=== PATIENT | male | born 1930 | race Caucasian/White ===

== ENCOUNTER → 2018-10-28 05:31 | Day surgery (SDC) | payer MEDICARE, BC ==
[~2018-10-28 05:31] MED LIST: Acetaminophen TAB* 325 MG PO PRN; Buffered Lidocaine 0.9% SYRIN* 5 ML/SYR SYRINGE INTRADERM ONE; Bupivacaine 0.25% SDV PF* 10 ML VIAL INJ ONE; Dexamethasone TAB* 4 MG ONE; Dexamethasone TAB* 4 MG PO ONE; Famotidine IV* 10 MG/ML 2 ML (20 mg) IV ONE; Famotidine IV* 10 MG/ML 2 ML (20 mg) ONE; Midazolam* 1 MG/ML 2 ML VIAL (2 MG) ONE; Morphine VIAL* 10 MG/ML 1 ML VIAL ONE; Naloxone* 0.4 MG/ML 1 ML VIAL IV PRN; Ondansetron ODT TAB* 4 MG ONE; Ondansetron TAB* 4 MG PO ONE; ceFAZolin 2 GM PREMIX in ORs 2 GM/50 ML BAG IVPB ONE; fentaNYL* 50 MCG/ML 2 ML VIAL (100 MCG VIAL) ONE
[2018-10-28 08:54] VITALS: BP 123/63
== END | disposition home or self-care (01) ==
LOC: OR 05:31
PROVIDERS: ATTEND Plastic Surgery
DX: G56.02 Carpal tunnel syndrome, left upper limb (principal); I10 Essential (primary) hypertension; Z85.828 Personal history of other malignant neoplasm of skin
CPT/HCPCS: A9270-GY; J0690; J2250; J2270; J3010; J3490; J8540

== ENCOUNTER 2019-07-09 16:10 | Emergency (ER) | payer MEDICARE, BC ==
[2019-07-09] MEDS ORDERED: diPHENhydraMINE PO* 50 MG PO ONE (16:46)
[2019-07-09] MEDS ORDERED: predniSONE TAB* 20 MG PO ONE (16:46)
--- NOTE | 2019-07-09 17:14 | ED ---
Skin Complaint - HPI Summary HPI Summary: Patient is an 89-year-old male who presents emergency department for evaluation of the sting to his left arm. Patient states the sting occurred about 4+ hours ago. Patient states area has aggressively become red and itchy. Patient states had similar reactions in the past. He denies history of anaphylactic reactions and has never used an EpiPen. Patient denies chest pain, shortness of breath, facial mild swelling. Symptoms are mild in severity. No current modifying factors. - History of Current Complaint Chief Complaint: EDAnimalBite Time Seen by Provider: 07/09/19 16:26 Stated Complaint: BEE STING PER PT Hx Obtained From: Patient Pain Intensity: 0 - Additional Pertinent History Primary Care Physician: CLARI - Allergy/Home Medications Allergies/Adverse Reactions: Allergies Allergy/AdvReac Type Severity Reaction Status Date / Time bee venom protein (honey bee) Allergy Rash And Verified 07/09/19 16:45 Itching procaine Allergy Hives Verified 07/09/19 16:45 tramadol AdvReac Intermediate Blurred Verified 07/09/19 16:45 Vision PMH/Surg Hx/FS Hx/Imm Hx Previously Healthy: Yes Endocrine/Hematology History: Denies: Hx Diabetes Cardiovascular History: Reports: Hx Hypertension - ON MEDICATION FOR Denies: Hx Pacemaker/ICD, Other Cardiovascular Problems/Disorders Respiratory History: Denies: Hx Asthma, Other Respiratory Problems/Disorders GI History: Reports: Hx Gastroesophageal Reflux Disease - ON MEDICATION FOR Denies: Other GI Disorders History: Reports: Other Problems/Disorders - BPH Denies: Hx Dialysis, Hx Renal Disease Musculoskeletal History: Reports: Hx Arthritis - RIGHT HIP, RIGHT KNEE, Hx Back Problems Denies: Other Musculoskeletal History Sensory History: Reports: Hx Cataracts, Hx Contacts or Glasses - GLASSES, Hx Hearing Aid - LT EAR, Hx Hearing Problem Opthamlomology History: Reports: Hx Cataracts, Hx Contacts or Glasses - GLASSES Neurological History: Reports: Other Neuro Impairments/Disorders - PAIN CLINIC PATIENT Psychiatric History: Denies: Hx Panic Disorder - Cancer History Cancer Type, Location and 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 03/1995 EXCISION OF BCC LEFT LEG, [facility] 07/1995 BASAL CELL CARCINOMA LEFT LEG RECURRENT; WIDE EXCISION-SPLIT THICKNESS SKIN GRAFT FROM LEFT LEG TO LEFT LEG, [facility] [place]. 12/2003 HEMORRHOIDECTOMY, [facility]. 11/11/2015-BASAL CELL REMOVED FROM THE RIGHT JAIN. November 2016 - right hip replacement Hx Anesthesia Reactions: No Infectious Disease History: No Infectious Disease History: Denies: Traveled Outside the [place] in Last 30 Days - Family History Known Family History: Positive: Non-Contributory - Social History Occupation: Retired Lives: With Family Alcohol Use: None Alcohol Amount: 1 drink per week Substance Use Type: Reports: None Smoking Status (MU): Never Smoked Tobacco Have You Smoked in the Last Year: No Review of Systems Constitutional: Negative Eyes: Negative ENT: Negative Cardiovascular: Negative Respiratory: Negative Positive: Other - bee sting to left arm Neurological: Negative All Other Systems Reviewed And Are Negative: Yes Physical Exam Triage Information Reviewed: Yes Vital Signs On Initial Exam: Initial Vitals Temp Pulse Resp BP Pulse Ox 98.2 F 63 16 140/72 98 07/09/19 16:12 07/09/19 16:12 07/09/19 16:12 07/09/19 16:12 07/09/19 16:12 Vital Signs Reviewed: Yes Appearance: Positive: Well-Appearing - Pt. sitting on chair in NAD. Pleasant. present. Skin: Positive: Warm, Dry, Other - Large area of warm erythema noted to mid left arm. Full ROM of elbow. Otherwise no urticaria. Head/Face: Positive: Normal Head/Face Inspection Eyes: Positive: Normal, EOMI Neck: Positive: Supple Respiratory/Lung Sounds: Positive: Clear to Auscultation, Breath Sounds Present. Negative: Wheezes Cardiovascular: Positive: Normal, RRR Musculoskeletal: Positive: Normal, Strength/ROM Intact Neurological: Positive: Normal, CN Intact II-III Psychiatric: Positive: Affect/Mood Appropriate Diagnostics - Vital Signs Vital Signs Temp Pulse Resp BP Pulse Ox 07/09/19 16:12 98.2 F 63 16 140/72 98 - Laboratory Lab Statement: Any lab studies that have been ordered have been reviewed, and results considered in the medical decision making process. Course/Dx - Course Course Of Treatment: Patient presenting with a localized reaction to a bee sting to his left arm. No evidence of anaphylaxis. Patient was given a dose of prednisone and Benadryl in the ER. We'll keep on a few days of prednisone. Advised to continue Benadryl or antihistamine at home for itching and reaction. To apply cool compresses. Return to the ER symptoms change or worsen. Patient understands and agrees with plan. - Differential Diagnoses - Skin Complaint Differential Diagnoses: Contact Dermatitis, Local Allergic Reaction, Poison Luly , Poison [place] - Diagnoses Provider Diagnoses: Bee sting reaction Discharge - Sign-Out/Discharge Documenting (check all that apply): Patient Departure Patient Received Moderate/Deep Sedation with Procedure: No - Discharge Plan Condition: Good Disposition: HOME Prescriptions: predniSONE TAB* [Deltasone 20 MG TAB*] 40 mg PO DAILY #10 tab Patient Education Materials: Insect Bite or Sting (ED) Referrals: Serenity Martin MD [Primary Care Provider] - Additional Instructions: Follow up with PCP for a recheck in 2-3 days Take steroid as directed Take over the counter benadryl as directed Apply cool compresses Return to ER if symptoms change or worsen - Billing Disposition and Condition Condition: GOOD Disposition: Home
[2019-07-09 17:24] VITALS: BP 138/74
== END 2019-07-09 17:23 | disposition home or self-care (01) ==
LOC: ED 16:10
DX: T63.441A Toxic effect of venom of bees, accidental (unintentional), initial encounter (principal); L25.8 Unspecified contact dermatitis due to other agents; Y92.9 Unspecified place or not applicable; I10 Essential (primary) hypertension; K21.9 Gastro-esophageal reflux disease without esophagitis; Z85.828 Personal history of other malignant neoplasm of skin; Z96.641 Presence of right artificial hip joint; Z88.4 Allergy status to anesthetic agent; Z88.5 Allergy status to narcotic agent
CPT/HCPCS: 99282; A9270-GY; J7512

== ENCOUNTER → 2020-01-28 08:09 | Day surgery (SDC) | payer MEDICARE, BC ==
[~2020-01-28 08:09] MED LIST changes: -Acetaminophen TAB* 325 MG PO PRN; +Aspirin 81 mg CHEW TAB* 81 MG TAB.CHEW ONE; -Buffered Lidocaine 0.9% SYRIN* 5 ML/SYR SYRINGE INTRADERM ONE; -Bupivacaine 0.25% SDV PF* 10 ML VIAL INJ ONE; -Dexamethasone TAB* 4 MG ONE; -Dexamethasone TAB* 4 MG PO ONE; -Famotidine IV* 10 MG/ML 2 ML (20 mg) IV ONE; -Famotidine IV* 10 MG/ML 2 ML (20 mg) ONE; +Heparin 2 UNITS/ML IVPREMIX* 2,000 ML IV ONE; +Heparin(*) 1000 UNIT/ML 10 ML VIAL CATH LAB IV ONE; +Iodixanol 320 (CONTRAST) 100 ML SDV ONE; +Lidocaine 1% INJ* 10 MG/ML 30 ML SDV ONE; -Midazolam* 1 MG/ML 2 ML VIAL (2 MG) ONE; +Midazolam* 1 MG/ML 5 ML VIAL (5 MG) ONE; -Morphine VIAL* 10 MG/ML 1 ML VIAL ONE; +NS 0.9% 1000 ML** 1,000 ML IV SCH; -Naloxone* 0.4 MG/ML 1 ML VIAL IV PRN; -Ondansetron ODT TAB* 4 MG ONE; -Ondansetron TAB* 4 MG PO ONE; +VERAPAMIL 2.5 MG/ML 2 ML VIAL ** 5 mg/2 ml ONE; -ceFAZolin 2 GM PREMIX in ORs 2 GM/50 ML BAG IVPB ONE; +nitroGLYCERIN DRIP* 25,000 MCG/250 ML BTL ONE
[2020-01-28 09:22] LABS: BUN/Creatinine Ratio 16.5 (8-20); Calcium 8.2 mg/dL (8.6-10.3); EGFR African American 82.7 (>60); EGFR Non-African American 68.3 (>60)
[2020-01-28 09:24] LABS: Potassium 4.2 mmol/L (3.5-5.0)
--- NOTE | 2020-01-28 13:35 | CATH ---
CC: Dr. Olge Oquendo, [facility]; Dr. Serenity Martin * CARDIAC CATHETERIZATION REPORT: DATE OF PROCEDURE: 01/28/20 - [facility] CATH INDICATION FOR PROCEDURE: Asked by Dr. Oleg Oquendo to perform diagnostic coronary arteriography in light of significant reduction in left ventricular systolic function, rule out the presence of significant coronary artery disease. Of note, the patient reportedly in the past had had an abnormal nuclear stress test raising the question of a fixed defect to the inferior wall. PROCEDURE: Coronary arteriography. CONSENT: The patient was interviewed and examined in the holding area of the catheterization laboratory where the risks and benefits were explained. He and his daughter understood them and wished to proceed. APPROACH UTILIZED: The right radial artery was assessed in the holding area by ultrasound for size and found to be acceptable for an approach. PRE-CARDIAC CATHETERIZATION LABORATORY RESULTS: Hemoglobin and hematocrit of 12.9 and 39, with platelet count of 194,000. BUN 17, creatinine 1.0, sodium 133 , potassium 4.2, chloride 101, bicarb 28. INR of 0.99. EQUIPMENT UTILIZED: 1. Right radial artery sheath was a 6-Micronesian Glidesheath Slender. 2. Diagnostic coronary catheter was a 5-Micronesian TIG 4 curve catheter. 3. Diagnostic guidewire utilized included both a 260 length Roach curved guidewire as well as a Wholey wire 145 cm length. That was to negotiate tortuosity in the subclavian region. MEDICATIONS GIVEN DURING THE PROCEDURE: Included: 1. A radial artery cocktail with 4000 units of heparin, 300 mcg of nitroglycerin, and 3 mg of verapamil. 2. 1% Xylocaine was utilized for local anesthesia. DESCRIPTION OF PROCEDURE: The patient was brought to the cardiovascular laboratory and a formal time-out was performed. He was prepped and draped in sterile fashion. The right radial artery area was anesthetized, and under ultrasound guidance, the right radial artery was cannulated and sheath was placed. Coronary arteriography was performed utilizing the 5-Micronesian TIG 4 curve catheter. At the end of the case, the catheter and sheath were removed and hemostasis was obtained with a Vasc Band. The reverse Barbeau was a B. The total amount of contrast used was 40 cc of Visipaque dye. The radiation exposure included 4.7 minutes of fluoro time. The air kerma radiation was 618 mGy. The DAP radiation was 4041 microgray per meter squared. RESULTS: CORONARY ARTERIOGRAPHY: A. Left coronary artery: 1. Left main - no significant obstruction seen. 2. Left anterior descending artery. The left anterior descending artery had minimal luminal irregularities of less than 20%, but no significant obstruction was seen. The LAD supplied a small first and second diagonal branch with a mid bifurcating diagonal branch. The LAD extended to the apical region and onto the distal inferior wall. 3. Circumflex artery - a nondominant vessel supplying a high trifurcation marginal branch, small in caliber, followed by a small caliber first obtuse marginal branch. The second obtuse marginal branch was mild-to- moderate in size with a 40% narrowing in its ostium. The continuation of the circumflex supplied a large or bifurcating low-lying obtuse marginal branch extending to low inferoposterior apical region. There was no significant obstruction seen and it finally ended in a smaller caliber low-lying posterior left ventricular branch. No significant disease was seen in that vessel as well. B. Right coronary artery. The right coronary artery was a large dominant vessel supplying the PDA and multiple posterior left ventricular branches. There was no significant obstruction seen throughout with only a mild 20% narrowing seen before the posterior descending artery and the body of the right coronary artery. OVERALL ASSESSMENT: No significant obstructive coronary artery disease to account for left ventricular systolic function deterioration. This information was shared with Dr. Oleg Oquedno, the patient's primary otolaryngology nurse, who will be seeing him in followup to adjust medical management for overall LV dysfunction. The patient will have a followup wound check next week by Dr. Brush, my partner. [id number]/[facility] #: [id number] ZACHARY
[2020-01-28 13:59] VITALS: BP 126/68
== END | disposition home or self-care (01) ==
LOC: CHICATH 08:09
PROVIDERS: ATTEND Internal Medicine Cardiovascular Disease
DX: 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, unspecified (principal); R60.0 Localized edema; D50.9 Iron deficiency anemia, unspecified; I08.3 Combined rheumatic disorders of mitral, aortic and tricuspid valves; I27.20 Pulmonary hypertension, unspecified; I45.10 Unspecified right bundle-branch block; I50.22 Chronic systolic (congestive) heart failure; I11.0 Hypertensive heart disease with heart failure; I49.5 Sick sinus syndrome; I49.3 Ventricular premature depolarization; J44.9 Chronic obstructive pulmonary disease, unspecified
CPT/HCPCS: 36415; 80048; 93454; A9270-GY; J1644; J2250; J3010

== ENCOUNTER 2020-02-12 15:09 | Inpatient (IN) | payer MEDICARE, BC, OTHER ==
--- OUTSIDE RECORDS SUMMARY | 2020-02-12 15:25 | XMS REPORT | Continuity of Care Document ---
:1930 External Reference #:[id number] Author Name Shimon Clifford M.D., [facility]LY [facility] [place] (transmitted by agent of provider Alison Mendoza) Address [address] [address] Care Team Providers Name Role Phone Tyron Kinney Luis Physical Therapy Care Team Information Television Journalist [phone] [place] - Physical Therapist Serenity Martin MD - Internal Care Team Information Television Journalist [phone] Medicine Oleg Oquendo MD - Cardiovascular Care Team Information Television Journalist Disease Julien Sheikh MD - Gastroenterology Care Team Information Television Journalist [phone] Problems Active Problems Provider Date Edema of lower leg Vanessa Hunter NP Onset: 01/14/2020 Iron deficiency anemia Vanessa Hunter NP Onset: 01/14/2020 Localized, primary osteoarthritis Geno Clemens M.D. 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 Onset: 11/27/2019 Social History Type Date Description Comments Sex Unknown ETOH Use Never used alcohol Tobacco Use Start: Unknown Patient has never smoked Recreational Drug Use Denies Drug Use Recreational Drug Use 1 alcoholic drink per week Smoking Status Reviewed: 02/08/20 Patient has never smoked Exercise Type/Frequency Exercises sporadically Allergies, Adverse Reactions, Alerts Active Allergies Reaction Severity Comments Date Novocain Hives 01/15/2014 Honey Bee Venom Rash & Itching 01/18/2020 Medications Active Medications SIG Qnty Indications Ordering Date Provider Entresto take 1 tab by 60tabs Oleg Piedra 01/29/2020 24-26mg Tablets mouth twice Kelsey Oquendo daily On Hold 02/08/20 Aspir-Low 1 by mouth I82.402 Oleg Piedra 01/14/[address] every day Kelsey Oquendo Compression Stockings thigh high, 1Pair R60.0 Serenity 12/31/2019 Misc 15-20 mm hg. Kelsey Martin for daily use Amoxicillin Take 4 tablets 20tabs Serenity 11/27/2019 500mg Tablets 1 hour prior to Kelsey Martin the procedure Doxazosin Mesylate 1 by mouth 90tabs Serenity 01/23/2019 4mg Tablets daily at night Kelsey Martin Metoprolol Succinate ER 1/2 by mouth 90tabs Serenity 10/17/2016 25mg every day Kelsey Martin Tablets ER 24HR Hydrochlorothiazide Take 1 Capsule 90caps Serenity 12.5mg Daily Kelsey Martin Capsules Finasteride 1 by mouth Esteban Gilliland, 5mg Tablets every day MD History Medications Lisinopril 1 by mouth every 90tabs Oleg Piedra 01/14/2020 - 5mg day Kelsey Oquendo 01/29/2020 Tablets Torsemide 1/2 tablet by 90tabs Oleg Piedra 01/14/2020 - 10mg mouth as needed Kelsey Oquendo 02/01/2020 Tablets for weight of 172 or higher with edema take only once in 24 hours unless otherwise directed. Tramadol HCL 1-2 tab every 12 28tabs Geno Clemens 12/25/2019 - 50mg hours as needed Kelsey 02/01/2020 Tablets for pain Feraheme feraheme infusion 2doses D50.9 Oleg Piedra 12/23/2019 - 510 mg 2 doses Kelsey Oquendo 01/19/2020 510mg/17ML total first Solution infusion followed by a second infusion in a week Eliquis 1 by mouth twice 60tabs I82.402 Oleg Piedra 12/21/2019 - 5mg a day Kelsey Oquendo 01/14/2020 Tablets Lisinopril 2 by mouth twice 360tabs Serenity Martin, 08/24/2019 - 10mg daily Kelsey 01/13/2020 Tablets Medications Administered in Office Medication SIG Qnty Indications Ordering Provider Date Triamcinolone (Kenalog) Geno Clemens M.D. 12/07/2019 Injection Technetium TC 99M Golden Champagne, DO [facility] 04/20/2019 Tetrofosmin, Per Unit Dose Up To 40 Millicuries Injection Technetium TC 99M Golden Champagne, DO [facility] 04/20/2019 Tetrofosmin, Per Unit Dose Up To 40 Millicuries Injection Shingrix pharmacy Unknown 03/26/2019 administered Injection Depomedrol 40MG Geno Clemens M.D. 11/18/2017 Injection Synvisc Or Synvisc-One Geno Clemens M.D. 01/02/2017 Injection 1 MG Injection Synvisc Or Synvisc-One Geno Clemens M.D. 12/26/2016 Injection 1 MG Injection Synvisc Or Synvisc-One Geno Clemens M.D. 12/19/2016 Injection 1 MG Injection Inj, Regadenoson, 0.1 MG John Arenas M.D. 11/02/2016 Injection Technetium TC 99M John Arenas M.D. 11/02/2016 Tetrofosmin, Per Unit Dose Up To 40 Millicuries Injection Technetium TC 99M ROSA Desir 11/01/2016 Tetrofosmin, Per Unit Dose Up To 40 Millicuries Injection Depomedrol 40MG Geno Clemens M.D. 10/08/2016 Injection Synvisc Or Synvisc-One Geno Clemens M.D. 07/16/2016 Injection 1 MG Injection Synvisc Or Synvisc-One Geno Clemens M.D. 07/09/2016 Injection 1 MG Injection Synvisc Or Synvisc-One Geno Clemens M.D. 07/02/2016 Injection 1 MG Injection Celestone 3 mg and 3mg Geno Clemens M.D. 04/27/2015 Injection Depomedrol 80MG SHANELL CarlosC 02/01/2015 Injection Depomedrol 80MG Willi Caba M.D. 08/05/2014 Injection Depomedrol 80MG Willi Caba M.D. 01/21/2014 Injection Depomedrol 80MG Willi Caba M.D. 11/19/2013 Injection Depomedrol 80MG Willi Caba M.D. 02/24/2013 Injection Immunizations CPT Code Status Date Vaccine Lot # [id number] Given 09/25/2019 Influenza Virus Vaccine, Quadrivalent, Split, Preservative Free [id number] Given 09/24/2018 Influenza Virus Vaccine, Quadrivalent, Split, Preservative Free 31304 Given 09/23/2017 Influenza Virus Vaccine, Quadrivalent, Split, [id number] Preservative Free 65921 Given 09/23/2017 Pneumococcal Conjugate Vaccine 13 Valent For [id number] Intramuscular Use Vital Signs Date Vital Result Comment 02/08/2020 8:43am Height 69 inches 5'9" Weight 177.00 lb Heart Rate 84 /min BP Systolic 102 mmHg BP Diastolic 57 mmHg Body Temperature 97.7 F O2 % BldC Oximetry 95 % BMI (Body Mass Index) 26.1 kg/m2 02/02/2020 2:42pm Height 69 inches 5'9" Weight 177.50 lb with shoes Heart Rate 72 /min left wrist BP Systolic Sitting 120 mmHg left arm, reg cuff BP Diastolic Sitting 58 mmHg left arm, reg cuff BP Systolic Standing 116 mmHg left arm, reg cuff BP Diastolic Standing 62 mmHg left arm, reg cuff BMI (Body Mass Index) 26.2 kg/m2 Results Test Acquired Date Facility Test Result H/L Range Note Lipid Profile 02/12/2020 [facility] Triglycerides 128 mg/dL 1 (Trig/Chol/HDL) [address] [place] [address] [phone] Cholesterol 169 mg/dL 2 HDL Cholesterol 57.9 mg/dL 3 LDL Cholesterol 86 mg/dL 4 Comp Metabolic 02/12/2020 [facility] Sodium 138 mmol/L Normal 135-[address] [place] [address] [phone] Potassium 3.6 mmol/L Normal 3.5-5.0 Chloride 104 mmol/L Normal 101-111 Co2 Carbon Dioxide 27 mmol/L Normal 22-32 Anion Gap 7 mmol/L Normal 2-11 Glucose 91 mg/dL Normal 70-100 Blood Urea Nitrogen 26 mg/dL High 6-24 Creatinine 1.10 mg/dL Normal 0.67-1.17 BUN/Creatinine Ratio 23.6 High 8-20 Calcium 7.8 mg/dL Low 8.6-10.3 Total Protein 4.7 g/dL Low 6.4-8.9 Albumin 2.8 g/dL Low 3.2-5.2 Globulin 1.9 g/dL Low 2-4 Albumin/Globulin Ratio 1.5 Normal 1-3 Total Bilirubin 0.50 mg/dL Normal 0.2-1.0 Alkaline Phosphatase 66 U/L Normal 34-104 Alt 58 U/L High 7-52 Ast 205 U/L High 13-39 Egfr Non- 63.3 >60 Egfr 76.6 >60 5 CBC Auto 02/12/2020 [facility] White Blood 5.2 10^3/uL Normal 3.5-10.[address] [place] [address] [phone] Red Blood Count 5.52 10^6/uL High 4.18-5.48 Hemoglobin 13.9 g/dL Low 14.0-18.0 Hematocrit 42 % Normal 42-52 Mean Corpuscular Volume 76 fL Low 80-94 Mean Corpuscular Hemoglobin 25 pg Low 27-31 Mean Corpuscular HGB Conc 33 g/dL Normal 31-36 Red Cell Distribution Width 16 % High 10-15 Platelet Count 146 10^3/uL Low 150-450 Mean Platelet Volume 8.4 fL Normal 7.4-10.4 Abs Neutrophils 4.3 10^3/uL Normal 1.5-7.7 Abs Lymphocytes 0.6 10^3/uL Low 1.0-4.8 Abs Monocytes 0.3 10^3/uL Normal 0-0.8 Abs Eosinophils 0.0 10^3/uL Normal 0-0.6 Abs Basophils 0.0 10^3/uL Normal 0-0.2 Abs Nucleated RBC 0.0 10^3/uL Granulocyte % 81.8 % Lymphocyte % 12.4 % Monocyte % 5.4 % Eosinophil % 0.3 % Basophil % 0.1 % Nucleated Red Blood Cells % 0.1 Urinalysis Profile 02/12/2020 [facility] Urine Color Yellow [address] [place] [address] [phone] Urine Appearance Clear Urine Specific [place] 1.020 Normal 1.010-1.030 Urine pH 6 Normal 5-9 Urine Urobilinogen Negative Negative Urine Ketones Negative Negative Urine Protein 1+(30 mg/dL) Abnormal Negative Urine Leukocytes Negative Negative Urine Blood Negative Negative Urine Nitrite Negative Negative Urine Bilirubin Negative Negative Urine Glucose Negative Negative Laboratory test 02/12/2020 [facility] C Reactive 22.69 mg/L High <8.[address] [place] [address] [phone] Creatine Kinase(CK) 3086 U/L High 10-223 Erythrocyte Sed Rate 19 mm/Hr Normal 0-19 CBC Auto 02/08/2020 [facility] White Blood 5.5 10^3/uL Normal 3.5-10.[address] [place] [address] [phone] Red Blood Count 5.31 10^6/uL Normal 4.18-5.48 Hemoglobin 13.6 g/dL Low 14.0-18.0 Hematocrit 41 % Low 42-52 Mean Corpuscular Volume 77 fL Low 80-94 Mean Corpuscular Hemoglobin 26 pg Low 27-31 Mean Corpuscular HGB Conc 33 g/dL Normal 31-36 Red Cell Distribution Width 15 % Normal 10-15 Platelet Count 154 10^3/uL Normal 150-450 Mean Platelet Volume 8.9 fL Normal 7.4-10.4 Abs Neutrophils 4.7 10^3/uL Normal 1.5-7.7 Abs Lymphocytes 0.5 10^3/uL Low 1.0-4.8 Abs Monocytes 0.4 10^3/uL Normal 0-0.8 Abs Eosinophils 0.0 10^3/uL Normal 0-0.6 Abs Basophils 0.0 10^3/uL Normal 0-0.2 Abs Nucleated RBC 0.0 10^3/uL Granulocyte % 84.9 % Lymphocyte % 8.2 % Monocyte % 6.4 % Eosinophil % 0.2 % Basophil % 0.3 % Nucleated Red Blood Cells % 0.1 Laboratory test 02/08/2020 [facility] Creatine 2680 U/L High 10-[address] Kinase(CK) [place] [address] [phone] Comp Metabolic 02/08/2020 [facility] Sodium 134 Low 135-145 Panel 101 [facility] mmol/[place] [address] [phone] Potassium 4.0 mmol/L Normal 3.5-5.0 Chloride 101 mmol/L Normal 101-111 Co2 Carbon Dioxide 27 mmol/L Normal 22-32 Anion Gap 6 mmol/L Normal 2-11 Glucose 85 mg/dL Normal 70-100 Blood Urea Nitrogen 25 mg/dL High 6-24 Creatinine 1.07 mg/dL Normal 0.67-1.17 BUN/Creatinine Ratio 23.4 High 8-20 Calcium 7.6 mg/dL Low 8.6-10.3 Total Protein 4.8 g/dL Low 6.4-8.9 Albumin 2.9 g/dL Low 3.2-5.2 Globulin 1.9 g/dL Low 2-4 Albumin/Globulin Ratio 1.5 Normal 1-3 Total Bilirubin 0.40 mg/dL Normal 0.2-1.0 Alkaline Phosphatase 65 U/L Normal 34-104 Alt 45 U/L Normal 7-52 Ast 154 U/L High 13-39 Egfr Non- 65.4 >60 Egfr 79.1 >60 6 Laboratory test 02/08/2020 [facility] C Reactive 12.59 mg/L High <8.01 finding [address] [facility] [address] [phone] Erythrocyte Sed Rate 12 mm/Hr Normal 0-19 TSH (Thyroid Stim Horm) 1.88 mcIU/mL Normal 0.34-5.60 Influenza A & B 02/08/2020 [facility] Flu AB Disclaimer (SEE NOTE) 7 Request [address] [place] [address] [phone] Influenza A Molecular Negative Negative Influenza B Molecular Negative Negative 8 Basic Metabolic 01/28/2020 [facility] Sodium 133 mmol/L Low 135-145 Panel [address] [place] [address] [phone] Chloride 101 mmol/L Normal 101-111 Co2 Carbon Dioxide 28 mmol/L Normal 22-32 Glucose 81 mg/dL Normal 70-100 Blood Urea Nitrogen 17 mg/dL Normal 6-24 Creatinine 1.03 mg/dL Normal 0.67-1.17 BUN/Creatinine Ratio 16.5 Normal 8-20 Calcium 8.2 mg/dL Low 8.6-10.3 Egfr Non- 68.3 >60 Egfr 82.7 >60 9 Potassium 4.2 mmol/L Normal 3.5-5.0 Anion Gap 4 mmol/L Normal 2-11 Cath Panel 01/25/2020 [facility] Partial 28.1 seconds Normal 26.0-38.[address] [place] [address] PTT [phone] CBC Auto 01/25/2020 [facility] White Blood 4.3 10^3/uL Normal 3.5-10.[address] [place] [address] [phone] Red Blood Count 5.07 10^6/uL Normal 4.18-5.48 Hemoglobin 12.9 g/dL Low 14.0-18.0 Hematocrit 39 % Low 42-52 Mean Corpuscular Volume 77 fL Low 80-94 Mean Corpuscular Hemoglobin 25 pg Low 27-31 Mean Corpuscular HGB Conc 33 g/dL Normal 31-36 Red Cell Distribution Width 15 % Normal 10-15 Platelet Count 194 10^3/uL Normal 150-450 Mean Platelet Volume 8.4 fL Normal 7.4-10.4 Abs Neutrophils 3.1 10^3/uL Normal 1.5-7.7 Abs Lymphocytes 0.9 10^3/uL Low 1.0-4.8 Abs Monocytes 0.3 10^3/uL Normal 0-0.8 Abs Eosinophils 0.0 10^3/uL Normal 0-0.6 Abs Basophils 0.0 10^3/uL Normal 0-0.2 Abs Nucleated RBC 0.0 10^3/uL Granulocyte % 71.3 % Lymphocyte % 20.8 % Monocyte % 7.3 % Eosinophil % 0.4 % Basophil % 0.2 % Nucleated Red Blood Cells % 0.0 Inr/Protime 01/25/2020 [facility] Inr 0.99 Normal 0.82-1.[address] [place] [address] [phone] Basic Metabolic 01/25/2020 [facility] Sodium 134 mmol/L Low 135-[address] [place] [address] [phone] Potassium 4.0 mmol/L Normal 3.5-5.0 Chloride 101 mmol/L Normal 101-111 Co2 Carbon Dioxide 27 mmol/L Normal 22-32 Anion Gap 6 mmol/L Normal 2-11 Glucose 104 mg/dL High 70-100 Blood Urea Nitrogen 26 mg/dL High 6-24 Creatinine 1.21 mg/dL High 0.67-1.17 BUN/Creatinine Ratio 21.5 High 8-20 Calcium 8.0 mg/dL Low 8.6-10.3 Egfr Non- 56.7 >60 Egfr 68.6 >60 11 Laboratory test 01/19/2020 [facility] Clotest SEE RESULT [address] [place] [address] [phone] Stool Occult Blood 01/19/2020 [facility] Stool SEE RESULT [address] [place] [address] Blood, Diag [phone] Protein 01/19/2020 [facility] Total 5.2 g/dL Abnormal 6.[address] Protein([place] [address] ) 7.9 [phone] Albumin 2.6 g/dL Abnormal 3.4-4.7 Alpha-1 Globulin 0.2 g/dL 0.1-0.3 Alpha-2 Globulin 0.9 g/dL 0.6-1.0 Beta Globulin 0.7 g/dL 0.7-1.2 Gamma Globulin 0.7 g/dL 0.6-1.6 Albumin/Globulin Ratio 1.01 Impression See Comment 14 Laboratory test 01/19/2020 [facility] Erythropoietin 5.9 mIU/mL 2.6 - [address] 18.5 [place] [address] [phone] Iron & Iron 01/19/2020 [facility] Iron 34 g/dL Low 50-[address] [address] [phone] Unsaturated Iron Binding < 161 g/dL Total Iron Binding Capacity 176 g/dL Low 250-450 Transferrin 126 mg/dL Low 203-362 % Iron Saturation 19 % Normal 15-55 CBC No Diff 01/19/2020 [facility] White Blood 5.3 10^3/uL Normal 3.5-10.[address] [place] [address] [phone] Red Blood Count 4.93 10^6/uL Normal 4.18-5.48 Hemoglobin 12.5 g/dL Low 14.0-18.0 Hematocrit 38 % Low 42-52 Mean Corpuscular Volume 78 fL Low 80-94 Mean Corpuscular Hemoglobin 25 pg Low 27-31 Mean Corpuscular HGB Conc 33 g/dL Normal 31-36 Red Cell Distribution Width 15 % Normal 10-15 Platelet Count 157 10^3/uL Normal 150-450 Mean Platelet Volume 9.0 fL Normal 7.4-10.4 Comp Metabolic 01/19/2020 [facility] Sodium 135 mmol/L Normal 135-[address] [place] [address] [phone] Potassium 3.9 mmol/L Normal 3.5-5.0 Chloride 101 mmol/L Normal 101-111 Co2 Carbon Dioxide 28 mmol/L Normal 22-32 Anion Gap 6 mmol/L Normal 2-11 Calcium 8.3 mg/dL Low 8.6-10.3 Albumin 3.3 g/dL Normal 3.2-5.2 Total Bilirubin 0.50 mg/dL Normal 0.2-1.0 Glucose 134 mg/dL High 70-100 Blood Urea Nitrogen 26 mg/dL High 6-24 Creatinine 1.13 mg/dL Normal 0.67-1.17 BUN/Creatinine Ratio 23.0 High 8-20 Total Protein 5.6 g/dL Low 6.4-8.9 Globulin 2.3 g/dL Normal 2-4 Albumin/Globulin Ratio 1.4 Normal 1-3 Alkaline Phosphatase 55 U/L Normal 34-104 Alt 10 U/L Normal 7-52 Ast 16 U/L Normal 13-39 Egfr Non- 61.4 >60 Egfr 74.3 >60 16 Laboratory 01/19/2020 [facility] B-Type 361 pg/mL High <=[address] [place] [address] Peptide BNP [phone] Laboratory 01/14/2020 [facility] Ferritin 708.4 High 24-[address] ng/[place] [address] [phone] Xray 01/14/2020 [facility] Chest PA & Lat <pending> [address] [place] [address] [phone] CBC Auto Diff 12/23/2019 [facility] White Blood 5.5 Normal 3.5 -10.[address] Count 10^3/[place] [address] [phone] Red Blood Count 4.74 10^6/uL Normal 4.18-5.48 Hemoglobin 12.1 g/dL Low 14.0-18.0 Hematocrit 36 % Low 42-52 Mean Corpuscular Volume 77 fL Low 80-94 Mean Corpuscular Hemoglobin 25 pg Low 27-31 Mean Corpuscular HGB Conc 33 g/dL Normal 31-36 Red Cell Distribution Width 15 % Normal 10-15 Platelet Count 194 10^3/uL Normal 150-450 Mean Platelet Volume 8.3 fL Normal 7.4-10.4 Abs Neutrophils 3.9 10^3/uL Normal 1.5-7.7 Abs Lymphocytes 1.2 10^3/uL Normal 1.0-4.8 Abs Monocytes 0.4 10^3/uL Normal 0-0.8 Abs Eosinophils 0.0 10^3/uL Normal 0-0.6 Abs Basophils 0.0 10^3/uL Normal 0-0.2 Abs Nucleated RBC 0.0 10^3/uL Granulocyte % 70.8 % Lymphocyte % 21.1 % Monocyte % 7.0 % Eosinophil % 0.6 % Basophil % 0.5 % Nucleated Red Blood Cells % 0.0 Iron & Iron Binding 12/23/2019 [facility] Iron 33 g/dL Low 50-[address] [place] [address] [phone] Unsaturated Iron Binding < 205 g/dL Total Iron Binding Capacity 220 g/dL Low 250-450 Transferrin 157 mg/dL Low 203-362 % Iron Saturation 15 % Normal 15-55 Comp Metabolic 12/23/2019 [facility] Sodium 136 mmol/L Normal 135-[address] [place] [address] [phone] Potassium 4.0 mmol/L Normal 3.5-5.0 Chloride 102 mmol/L Normal 101-111 Co2 Carbon Dioxide 28 mmol/L Normal 22-32 Anion Gap 6 mmol/L Normal 2-11 Glucose 89 mg/dL Normal 70-100 Blood Urea Nitrogen 21 mg/dL Normal 6-24 Creatinine 1.08 mg/dL Normal 0.67-1.17 BUN/Creatinine Ratio 19.4 Normal 8-20 Calcium 8.2 mg/dL Low 8.6-10.3 Total Protein 5.1 g/dL Low 6.4-8.9 Albumin 3.2 g/dL Normal 3.2-5.2 Globulin 1.9 g/dL Low 2-4 Albumin/Globulin Ratio 1.7 Normal 1-3 Total Bilirubin 0.80 mg/dL Normal 0.2-1.0 Alkaline Phosphatase 55 U/L Normal 34-104 Alt 8 U/L Normal 7-52 Ast 15 U/L Normal 13-39 Egfr Non- 64.7 >60 Egfr 78.3 >60 17 Laboratory 12/23/2019 [facility] D Dimer 261 ng/mL High Less 18 test finding [address] Quantitative Than [place], [place] [phone] CBC Auto Diff 11/23/2019 [facility] White Blood 4.2 Normal 3.5 -10. [address] Count 10^3/uL 8 [place] [address] [phone] Red Blood Count 4.69 10^6/uL Normal 4.18-5.48 Hemoglobin 11.9 g/dL Low 14.0-18.0 Hematocrit 37 % Low 42-52 Mean Corpuscular Volume 78 fL Low 80-94 Mean Corpuscular Hemoglobin 25 pg Low 27-31 Mean Corpuscular HGB Conc 33 g/dL Normal 31-36 Red Cell Distribution Width 15 % Normal 10-15 Platelet Count 172 10^3/uL Normal 150-450 Mean Platelet Volume 8.9 fL Normal 7.4-10.4 Abs Neutrophils 2.8 10^3/uL Normal 1.5-7.7 Abs Lymphocytes 1.1 10^3/uL Normal 1.0-4.8 Abs Monocytes 0.3 10^3/uL Normal 0-0.8 Abs Eosinophils 0.0 10^3/uL Normal 0-0.6 Abs Basophils 0.0 10^3/uL Normal 0-0.2 Abs Nucleated RBC 0.0 10^3/uL Granulocyte % 66.2 % Lymphocyte % 26.0 % Monocyte % 6.6 % Eosinophil % 1.0 % Basophil % 0.2 % Nucleated Red Blood Cells % 0.0 Comp Metabolic 11/23/2019 [facility] Sodium 139 mmol/L Normal 135-[address] [place] [address] [phone] Potassium 3.8 mmol/L Normal 3.5-5.0 Chloride 107 mmol/L Normal 101-111 Co2 Carbon Dioxide 27 mmol/L Normal 22-32 Anion Gap 5 mmol/L Normal 2-11 Glucose 155 mg/dL High 70-100 Blood Urea Nitrogen 29 mg/dL High 6-24 Creatinine 1.28 mg/dL High 0.67-1.17 BUN/Creatinine Ratio 22.7 High 8-20 Calcium 8.2 mg/dL Low 8.6-10.3 Total Protein 5.0 g/dL Low 6.4-8.9 Albumin 3.1 g/dL Low 3.2-5.2 Globulin 1.9 g/dL Low 2-4 Albumin/Globulin Ratio 1.6 Normal 1-3 Total Bilirubin 0.60 mg/dL Normal 0.2-1.0 Alkaline Phosphatase 53 U/L Normal 34-104 Alt 9 U/L Normal 7-52 Ast 18 U/L Normal 13-39 Egfr Non- 53.2 >60 Egfr 64.3 >60 19 Laboratory test 09/04/2019 [facility] Surgical SEE RESULT 20, [address] [place] [address] [phone] 1 Desirable: <150 Borderline High: 150-199 High: 200-499 Very High: >500 2 Desirable: <200 Borderline High: 200-239 High: >239 3 Low: <40 Desirable: 40-60 High: >60 4 Desirable: <100 Near Optimal: 100-129 Borderline High: 130-159 High: 160-189 Very High: >189 5 Because ethnic data is not always readily available, this report includes an eGFR for both -Americans and non- Americans. The National Kidney Disease Education Program (NKDEP) does not endorse the use of the MDRD equation for patients that are not between the ages of 18 and 70, are , have extremes of body size, muscle mass, or nutritional status, or are non- or non-. According to the National Kidney Foundation, irrespective of diagnosis, the stage of the disease is based on the level of kidney function: Stage Description GFR(mL/min/1.73 m(2)) 1 Kidney damage with normal or decreased GFR 90 2 Kidney damage with mild decrease in GFR 60-89 3 Moderate decrease in GFR 30-59 4 Severe decrease in GFR 15-29 5 Kidney failure <15 (or dialysis) 6 Because ethnic data is not always readily available, this report includes an eGFR for both -Americans and non- Americans. The National Kidney Disease Education Program (NKDEP) does not endorse the use of the MDRD equation for patients that are not between the ages of 18 and 70, are , have extremes of body size, muscle mass, or nutritional status, or are non- or non-. According to the National Kidney Foundation, irrespective of diagnosis, the stage of the disease is based on the level of kidney function: Stage Description GFR(mL/min/1.73 m(2)) 1 Kidney damage with normal or decreased GFR 90 2 Kidney damage with mild decrease in GFR 60-89 3 Moderate decrease in GFR 30-59 4 Severe decrease in GFR 15-29 5 Kidney failure <15 (or dialysis) 7 Suboptimal collection technique may reduce sensitivity of test. Refer to the [facility] Test Catalog for collection information: [email or web address] As with all diagnostic procedures, the laboratory results obtained should be used in conjunction with other clinical information available to the physician, including confirmation by another method, as applicable. 8 Decontaminator: [id number] 9 Because ethnic data is not always readily available, this report includes an eGFR for both -Americans and non- Americans. The National Kidney Disease Education Program (NKDEP) does not endorse the use of the MDRD equation for patients that are not between the ages of 18 and 70, are , have extremes of body size, muscle mass, or nutritional status, or are non- or non-. According to the National Kidney Foundation, irrespective of diagnosis, the stage of the disease is based on the level of kidney function: Stage Description GFR(mL/min/1.73 m(2)) 1 Kidney damage with normal or decreased GFR 90 2 Kidney damage with mild decrease in GFR 60-89 3 Moderate decrease in GFR 30-59 4 Severe decrease in GFR 15-29 5 Kidney failure <15 (or dialysis) 10 Standard intensity warfarin therapeutic range: 2.0-3.0 High intensity warfarin therapeutic range: 2.5-3.5 11 Because ethnic data is not always readily available, this report includes an eGFR for both -Americans and non- Americans. The National Kidney Disease Education Program (NKDEP) does not endorse the use of the MDRD equation for patients that are not between the ages of 18 and 70, are , have extremes of body size, muscle mass, or nutritional status, or are non- or non-. According to the National Kidney Foundation, irrespective of diagnosis, the stage of the disease is based on the level of kidney function: Stage Description GFR(mL/min/1.73 m(2)) 1 Kidney damage with normal or decreased GFR 90 2 Kidney damage with mild decrease in GFR 60-89 3 Moderate decrease in GFR 30-59 4 Severe decrease in GFR 15-29 5 Kidney failure <15 (or dialysis) 12 SEE RESULT BELOW Name: BETO PEREZ : [address]: Julien Sheikh MD Acct: [id number] Unit: [id number] AGE: 89 Location: [facility] Re01/19/20 SEX: M Status: REG REF SPEC: [id number] DOMINGO: 01/19/20-[address] [facility] [address]: Julien Sheikh MD REQ: [id number] RECD: 01/19/20-5938 STATUS: TUNDE MEJIA DR: Serenity Martin MD _ SOURCE: GEENA ANTRUM SPDESC: ORDERED: Clotest Procedure Result Reported Site Clotest Final 01/20/20- 942 ML Clotest Negative * ML - Main Lab . END OF REPORT DEPARTMENT OF PATHOLOGY, [address] [place] [address] Jeet Hall M.D. Director [facility] # [id number] 13 SEE RESULT BELOW Name: BETO PEREZ : [address]: Julien Sheikh MD Acct: [id number] Unit: [id number] AGE: 89 Location: ENDO Re01/19/20 SEX: M Status: REG REF SPEC: [id number] DOMINGO: 01/19/20-[address] [facility] DR: Julien Sheikh MD REQ: [id number] RECD: 01/19/20 STATUS: TUNDE MEJIA DR: Serenity Martin MD _ SOURCE: STOOL SPDESC: ORDERED: Occult Bl, Diag Procedure Result Reported Site Stool Occult Blood (1) Final 01/19/20- 1535 ML Stool Occult Blood Negative Collection Date (1) 01/19/20 * ML - Main Lab . END OF REPORT DEPARTMENT OF PATHOLOGY, [address] [place] [address] Jeet Hall M.D. Director [facility] # [id number] 14 RESULT: No apparent monoclonal protein on serum electrophoresis. Test Performed by: [facility] [address] Landscape Laborer: Norberto Cutler M.D. Ph.D.; CLIA# [id number] 15 Test Performed by: [facility] [address] Landscape Laborer: Norberto Cutler M.D. Ph.D.; CLIA# [id number] 16 Because ethnic data is not always readily available, this report includes an eGFR for both -Americans and non- Americans. The National Kidney Disease Education Program (NKDEP) does not endorse the use of the MDRD equation for patients that are not between the ages of 18 and 70, are , have extremes of body size, muscle mass, or nutritional status, or are non- or non-. According to the National Kidney Foundation, irrespective of diagnosis, the stage of the disease is based on the level of kidney function: Stage Description GFR(mL/min/1.73 m(2)) 1 Kidney damage with normal or decreased GFR 90 2 Kidney damage with mild decrease in GFR 60-89 3 Moderate decrease in GFR 30-59 4 Severe decrease in GFR 15-29 5 Kidney failure <15 (or dialysis) 17 Because ethnic data is not always readily available, this report includes an eGFR for both -Americans and non- Americans. The National Kidney Disease Education Program (NKDEP) does not endorse the use of the MDRD equation for patients that are not between the ages of 18 and 70, are , have extremes of body size, muscle mass, or nutritional status, or are non- or non-. According to the National Kidney Foundation, irrespective of diagnosis, the stage of the disease is based on the level of kidney function: Stage Description GFR(mL/min/1.73 m(2)) 1 Kidney damage with normal or decreased GFR 90 2 Kidney damage with mild decrease in GFR 60-89 3 Moderate decrease in GFR 30-59 4 Severe decrease in GFR 15-29 5 Kidney failure <15 (or dialysis) 18 Please note: The following may produce a false positive D Dimer test: - Rheumatoid factor greater than 60 IU/ml - Plasma hemoglobin greater than 0.05 gm/dl - Bilirubin greater than 50 mg/dl - Lipids greater than 1000 mg/dl - FDP greater than 20 ug/ml 19 Because ethnic data is not always readily available, this report includes an eGFR for both -Americans and non- Americans. The National Kidney Disease Education Program (NKDEP) does not endorse the use of the MDRD equation for patients that are not between the ages of 18 and 70, are , have extremes of body size, muscle mass, or nutritional status, or are non- or non-. According to the National Kidney Foundation, irrespective of diagnosis, the stage of the disease is based on the level of kidney function: Stage Description GFR(mL/min/1.73 m(2)) 1 Kidney damage with normal or decreased GFR 90 2 Kidney damage with mild decrease in GFR 60-89 3 Moderate decrease in GFR 30-59 4 Severe decrease in GFR 15-29 5 Kidney failure <15 (or dialysis) 20 [id number] 21 SEE RESULT BELOW Name: BETO PEREZ : [address]: Oj Quintero MD Acct: [id number] Unit: [id number] AGE: 89 Location: [facility] Re09/04/19 SEX: M Status: REG REF SPEC: [id number] DOMINGO: 09/04/[address] [facility] DR: Oj Quintero MD REQ: [id number] RECD: 09/04/192 STATUS: MANPREET MEJIA DR: Serenity Hanson MD _ ORDERED: LEVEL 4 COMMENTS: [id number] FINAL DIAGNOSIS Skin, right mid forehead, excision: -- Scar, excised. -- No evidence of residual basal cell carcinoma. COMMENT: The previous lesion at this site ([id number]) has been completely excised. CLINICAL HISTORY [place] [facility] [place] [id number] PRE-OPERATIVE DIAGNOSIS Basal cell carcinoma, suture lopez 12:00 medial apex margin GROSS DESCRIPTION The specimen is received in formalin labeled, Excision Basal Cell Carcinoma Right Mid Forehead, Suture Lopez 12:00 Medial [place] Margin, and consists of a 3.0 x 1.1 cm mottled calvin-white hairbearing skin ellipse excised to a maximum depth of 0.6 cm with a faint ill-defined calvin-white probable scar measuring up to 0.6 cm. There is a suture attached to one long axis which designates the 12:00 medial apex margin. The specimen is inked as follows: 9:00 half black, 3:00 half blue and 12:00 tip green, serially sectioned from 12:00 to 6:00 and entirely submitted in cassettes A through C to include ellipse ends in cassette A. Signed by and Reported on: Alison Hathaway MD 09/08/19 1103 END OF REPORT DEPARTMENT OF PATHOLOGY, [address] [place] [address] Jeet Hall M.D. Director [facility] # [id number] Procedures Date Code Description Status 01/28/2020 17510 Cath PLMT&NJX L Ventriculog Img S&I Completed 01/20/2020 44308 EKG Tracing & Interpretation Completed 01/19/2020 22398 Endoscopy Upper GI Biopsy Completed 01/11/2020 34137 ECHO Transthoracic, Real-Time 2D With Doppler And Color Completed Flow 01/11/2020 90591 ECHO Transthoracic, Real-Time 2D With Doppler And Color Completed Flow 12/21/2019 97597 EKG Tracing & Interpretation Completed 12/07/2019 38949 Inject/Drain Joint/Bursa Major W/O US Completed 12/15/2013 [id number] Colonoscopy Completed 10/21/2007 [id number] Colonoscopy Completed 02/18/2001 [id number] Colonoscopy Completed Medical Devices Description No Information Available Encounters Type Date Location Provider Dx Diagnosis Office Visit 02/08/2020 [facility] Internal Serenity Martin M79.10 Myalgia, 9:00a Gissel Camargo M.D. unspecified site J06.9 Acute upper respiratory infection, unspecified R19.7 Diarrhea, unspecified Office Visit 02/02/2020 Sourav Blake 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, 3:00p Cardiology Of MD Trudi, unspecified Delicatessen Clerk AT [facility] [place] Office Visit 01/20/2020 Zoya Piedra D50.9 Iron deficiency 10:30a Cardiology Kelsey Oquendo anemia, unspecified R60.0 Localized edema 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, unspecified I10 Essential (primary) hypertension I50.22 Chronic systolic (congestive) heart failure I49.5 Sick sinus syndrome I49.3 Ventricular premature depolarization I45.19 Other right bundle-branch block I45.2 Bifascicular block R94.31 Abnormal electrocardiogram [ECG] [EKG] Office Visit 01/14/2020 [facility] Gastroenterology Vanessa D50.9 Iron deficiency 1:10p Alison anemia, Hunter, CLIENT ENGAGEMENT MANAGER unspecified R60.0 Localized edema 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, unspecified Office Visit 12/31/2019 8:40a [facility] Internal Serenity R60.0 Localized edema Gissel Mratin M.D. M25.562 Pain in left knee Office Visit 12/25/2019 9:15a [facility] Geno Clemens, M25.562 Pain in left at Sourav Cole knee M25.462 Effusion, left knee M17.12 Unilateral primary osteoarthritis, left knee Office Visit 12/21/2019 [place] Oleg Piedra 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, 3:20p Cardiology Kris Oquendo M.D. unspecified [facility] I10 Essential (primary) hypertension D64.9 Anemia, unspecified I49.3 Ventricular premature depolarization R60.0 Localized edema I82.402 Acute embolism and thombos unsp deep veins of l low extrem I45.89 Other specified conduction disorders R94.31 Abnormal electrocardiogram [ECG] [EKG] Office Visit 12/07/2019 9:00a [facility] Geno Clemens, M25.562 Pain in left at [place] M.D. knee M25.462 Effusion, left knee M17.12 Unilateral primary osteoarthritis, left knee M54.32 Sciatica, left side Assessments Date Code Description Provider 02/08/2020 M79.10 Myalgia, unspecified site Serenity Martin M.D. 02/08/2020 J06.9 Acute upper respiratory infection, Serenity Martin M.D. unspecified 02/08/2020 R19.7 Diarrhea, unspecified Serenity Martin M.D. 02/02/2020 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, unspecified Alexandrea Brush MD, [facility] 01/28/2020 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, unspecified Shimon Clifford M.D., [facility] 01/20/2020 D50.9 Iron deficiency anemia, unspecified Oleg Oquendo M.D. 01/20/2020 R60.0 Localized edema Oleg Oquendo M.D. 01/20/2020 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, unspecified Oleg Oquendo M.D. 01/20/2020 I10 Essential (primary) hypertension Oleg Oquendo M.D. 01/20/2020 I50.22 Chronic systolic (congestive) heart Oleg Oquendo M.D. failure 01/20/2020 I49.5 Sick sinus syndrome Oleg Oquendo M.D. 01/20/2020 I49.3 Ventricular premature depolarization Oleg Oquendo M.D. 01/20/2020 I45.19 Other right bundle-branch block Oleg Oquendo M.D. 01/20/2020 I45.2 Bifascicular block Oleg Oquendo M.D. 01/20/2020 R94.31 Abnormal electrocardiogram [ECG] Oleg Oquendo M.D. [EKG] 01/19/2020 K29.70 Gastritis, unspecified, without Julien Sheikh MD bleeding 01/19/2020 D50.9 Iron deficiency anemia, unspecified Julien Sheikh MD 01/14/2020 D50.9 Iron deficiency anemia, unspecified Vanessa Hunter , CLIENT ENGAGEMENT MANAGER 01/14/2020 R60.0 Localized edema Vanessa Hunter, CLIENT ENGAGEMENT MANAGER 01/14/2020 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, unspecified Vanessa Hunter, CLIENT ENGAGEMENT MANAGER 01/11/2020 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, unspecified Oleg Oquendo M.D. 01/11/2020 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, unspecified [place] [facility] Schedule 12/31/2019 R60.0 Localized edema Serenity Martin M.D. 12/31/2019 M25.562 Pain in left knee Serenity Martin M.D. 12/25/2019 M25.562 Pain in left knee Geno Clemens M.D. 12/25/2019 M25.462 Effusion, left knee Geno Clemens M.D. 12/25/2019 M17.12 Unilateral primary osteoarthritisGeno M.D. left knee 12/21/2019 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, unspecified Oleg Oquendo M.D. 12/21/2019 I10 Essential (primary) hypertension Oleg Oquendo M.D. 12/21/2019 D64.9 Anemia, unspecified Oleg Oquendo M.D. 12/21/2019 I49.3 Ventricular premature depolarization Oleg Oquendo M.D. 12/21/2019 R60.0 Localized edema Oleg Oquendo M.D. 12/21/2019 I82.402 Deep venous thrombosis Oleg Oquendo M.D. 12/21/2019 I45.89 Sinus node dysfunction Oleg Oquendo M.D. 12/21/2019 R94.31 Abnormal electrocardiogram [ECG] Oleg Oquendo M.D. [EKG] 12/07/2019 M25.562 Pain in left knee Geno Clemens M.D. 12/07/2019 M25.462 Effusion, left knee Geno Clemens M.D. 12/07/2019 M17.12 Unilateral primary osteoarthritis, Geno Clemens M.D. left knee 12/07/2019 M54.32 Sciatica, left side Geno Clemens M.D. 11/27/2019 Z00.00 Encounter for general adult medical Serenity Martin M.D. examination without abnormal findings 11/27/2019 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, unspecified Serenity Martin M.D. 11/27/2019 I10 Essential (primary) hypertension Serenity Martin M.D. 11/27/2019 D64.9 Anemia, unspecified Serenity Martin M.D. Plan of Treatment Future Appointment(s):03/18/2020 8:45 am - Geno Clemens M.D. at [facility] at [place]/25/2020 9:00 am - Julien Sheikh MD at [facility] Zbkikmecyqtrvnmr46/18/2020 11:20 am - Oleg Oquendo M.D. at [place] Wnqhlnvaxa94/03/2020 - Alexandrea Brush MD, [facility], PPLFYA94.9 Cardiomyopathy, unspecifiedFollow up:Dr Oquendo as scheduled Functional Status Description No Information Available Mental Status Description No Information Available Referrals Refer to Dr Reason for Referral Status Appt Date Julien Sheikh MD Scheduled 01/14/2020 [address] [place] [address] [phone]
--- OUTSIDE RECORDS SUMMARY | 2020-02-12 15:25 | XMS REPORT | Continuity of Care Document ---
:1930 External Reference #:[id number] Author Name Oleg Oquendo M.D. (transmitted by agent of provider Candie Gamez ) Address [address] [place] [id number] Care Team Providers Name Role Phone Tyron Kinney Luis Physical Therapy Care Team Information Fabrication Engineer [place] - Physical Therapist Serenity Martin MD - Internal Care Team Information Fabrication Engineer Medicine Oleg Oquendo MD - Cardiovascular Care Team Information Fabrication Engineer [phone] Disease Julien Sheikh MD - Gastroenterology Care Team Information Fabrication Engineer Problems Active Problems Provider Date Edema of [...] Use Denies Drug Use Recreational Drug Use denies alcohol use Smoking Status Reviewed: 01/20/20 Patient has never smoked Exercise Type/Frequency Exercises sporadically Allergies, Adverse Reactions, Alerts Active Allergies Reaction Severity Comments Date Novocain Hives 01/15/2014 Honey Bee Venom Rash & Itching 01/18/2020 Medications Active Medications SIG Qnty Indications Ordering Date Provider Aspir-Low 1 by mouth I82.402 Oleg Piedra 01/14/[address] every day Kelsey Oquendo Lisinopril 1 by mouth 90tabs Oleg Piedra 01/14/2020 5mg Tablets every day Kelsey Oquendo Torsemide 1/2 tablet by 90tabs Oleg Piedra 01/14/2020 10mg Tablets mouth as needed Kelsey Oquendo for weight of 172 or higher with edema take only once in 24 hours unless otherwise directed. Compression Stockings thigh high, 1Pair R60.0 Serenity 12/31/2019 Misc 15-20 mm hg. Kelsey Martin for daily use Tramadol HCL 1-2 tab every 28tabs Geno Clemens, 12/25/2019 50mg Tablets 12 hours as M.DRenita needed for pain Amoxicillin Take 4 tablets 20tabs Serenity 11/27/2019 [...] mouth Esteban Gilliland, 5mg Tablets every day History Medications Fermirian zee 2doses D50.9 Oleg Piedra 12/23/2019 - infusion 510 mg Kelsey Oquendo 01/19/2020 510mg/17ML 2 doses total Solution first infusion followed by a second infusion in a week Eliquis 1 by mouth twice 60tabs I82.402 Oleg Piedra 12/21/2019 - 5mg a day Kelsey Oquendo 01/14/2020 Tablets Lisinopril 2 by mouth twice 360tabs Serenity Mario 08/24/2019 - 10mg daily Kendrick.DRenita 01/13/2020 Tablets Medications Administered in Office Medication SIG Qnty Indications Ordering Provider Date Triamcinolone (Kenalog) Geno Clemens M.D. 12/07/2019 Injection Technetium TC 99M Golden Champagne, DO [facility] 04/20/2019 Tetrofosmin, Per Unit Dose Up To 40 Millicuries Injection Technetium TC 99M Golden Champagne, DO [facility] 04/20/2019 Tetrofosmin, Per Unit Dose Up To [...] Geno Clemens M.D. 04/27/2015 Injection Depomedrol 80MG RADHA Carlos 02/01/2015 Injection Depomedrol 80MG Willi Caba M.D. 08/05/2014 Injection Depomedrol 80MG Willi Caba M.D. 01/21/2014 Injection Depomedrol 80MG Willi Caba M.D. 11/19/2013 Injection Depomedrol 80MG Willi Caba M.D. 02/24/2013 Injection Immunizations CPT Code Status Date Vaccine Lot # [id number] Given 09/25/2019 Influenza Virus Vaccine, Quadrivalent, Split, Preservative Free [id number] Given 09/24/2018 Influenza Virus Vaccine, Quadrivalent, Split, Preservative Free 51394 Given 09/23/2017 Influenza Virus Vaccine, Quadrivalent, Split, [id number] Preservative Free 69833 Given 09/23/2017 Pneumococcal Conjugate Vaccine 13 Valent For [id number] Intramuscular Use Vital Signs Date Vital Result Comment 01/20/2020 10:26am Height 69 inches 5'9" Weight 177.75 lb with shoes/coat Heart Rate 48 /min Radial,skipped beats BP Systolic Sitting 128 mmHg LA, reg cuff BP Diastolic Sitting 58 mmHg LA, reg cuff BMI (Body Mass Index) 26.2 kg/m2 Ejection Fraction 30%-35% Echo 01/11/20 01/14/2020 1:20pm Height 69 inches 5'9" Weight 183.12 lb Heart Rate 74 /min BP Systolic 130 mmHg BP Diastolic 65 mmHg Respiratory Rate 16 /min O2 % BldC Oximetry 99 % BMI (Body Mass Index) 27.0 kg/m2 Results Test Acquired Date Facility Test Result H/L Range Note CBC No Diff 01/19/2020 [facility] White Blood 5.3 10^3/uL Normal 3.5-10.[address] [place] [address] [phone] Red Blood Count 4.93 10^6/uL Normal 4.18-5.48 Hemoglobin 12.5 g/dL Low 14.0-18.0 Hematocrit 38 % Low 42-52 Mean Corpuscular Volume 78 fL Low 80-94 Mean Corpuscular Hemoglobin 25 pg Low 27-31 Mean Corpuscular HGB Conc 33 g/dL Normal 31-36 Red Cell Distribution Width 15 % Normal 10-15 Platelet Count 157 10^3/uL Normal 150-450 Mean Platelet Volume 9.0 fL Normal 7.4-10.4 Laboratory test 01/19/2020 [facility] B-Type 361 pg/mL High <= [address] [place] [address] Peptide BNP [phone] Comp Metabolic 01/19/2020 [facility] Sodium 135 Normal 135- [address] mmol/[place] [address] [phone] Potassium 3.9 mmol/L Normal 3.5-5.0 Chloride 101 [...] Egfr Non- 61.4 >60 Egfr 74.3 >60 1 Iron & Iron Binding 01/19/2020 [facility] Iron 34 g/dL Low 50-[address] [place] [address] [phone] Unsaturated Iron Binding < 161 g/dL Total Iron Binding Capacity 176 g/dL Low 250-450 Transferrin 126 mg/dL Low 203-362 % Iron Saturation 19 % Normal 15-55 Stool Occult 01/19/2020 [facility] Stool Occult SEE RESULT 2 Blood Diag [address] Blood, [place] [address] [phone] Laboratory 01/19/2020 [facility] Clotest SEE RESULT 3 test finding [address] [place] [address] [phone] Laboratory 01/14/2020 [facility] Ferritin 708.4 High 24-[address] ng/[place] [address] [phone] Xray 01/14/2020 [facility] Chest PA & Lat 2 <pending> [address] [place] [address] [phone] Laboratory 12/23/2019 [facility] D Dimer 261 ng/mL High Less [address] [place] [address] [phone] Comp Metabolic 12/23/2019 [facility] Sodium 136 mmol/L Normal 135-145 Panel [address] [place] [address] [phone] Potassium 4.0 mmol/L Normal 3.5-5.0 Chloride 102 [...] Egfr Non- 64.7 >60 Egfr 78.3 >60 5 Iron & Iron Binding 12/23/2019 [facility] Iron 33 g/dL Low 50-[address] [place] [address] [phone] Unsaturated Iron Binding < 205 g/dL Total Iron Binding Capacity 220 g/dL Low 250-450 Transferrin 157 mg/dL Low 203-362 % Iron Saturation 15 % Normal 15-55 CBC Auto 12/23/2019 [facility] White Blood 5.5 10^3/uL Normal 3.5-10.8 Diff [address] [place] [address] [phone] Red Blood Count 4.74 10^6/uL Normal 4.18-5.48 [...] % Nucleated Red Blood Cells % 0.0 CBC Auto 11/23/2019 [facility] White Blood 4.2 10^3/uL Normal 3.5-10.[address] [place] [address] [phone] Red Blood Count 4.69 10^6/uL Normal 4.18-5.48 [...] Blood Cells % 0.0 Comp Metabolic 11/23/2019 [facility] Sodium 139 mmol/L Normal 135-[address] [place] [address] [phone] Potassium 3.8 mmol/L Normal 3.5-5.0 Chloride 107 [...] Egfr Non- 53.2 >60 Egfr 64.3 >60 6 Laboratory test 09/04/2019 [facility] Surgical SEE RESULT 7 , [address] [place] [address] [phone] 1 Because ethnic data is not always readily [...] 15-29 5 Kidney failure <15 (or dialysis) 2 SEE RESULT BELOW Name: BETO PEREZ : [address]: Julien Sheikh MD Acct: [id number] Unit: [id number] AGE: 89 Location: ENDO Re01/19/20 SEX: M Status: REG REF SPEC: [id number] DOMINGO: 01/19/20-[address]: Julien Sheikh MD REQ: [id number] RECD: 01/19/20-152 STATUS: TUNDE MEJIA DR: Serenity Martin MD _ SOURCE: STOOL SPDESC: ORDERED: Occult Bl, Diag Procedure Result Reported Site Stool Occult Blood (1) Final 01/19/20- 1535 ML Stool Occult Blood Negative Collection Date (1) 01/19/20 * ML - Main Lab . END OF REPORT DEPARTMENT OF PATHOLOGY, [address] [place] [address] Jeet Hall M.D. Director JOVANY # [id number] 3 SEE RESULT BELOW Name: BETO PEREZ : [address]: Julien Sheikh MD Acct: [id number] Unit: [id number] AGE: 89 Location: ENDO Re01/19/20 SEX: M Status: REG REF SPEC: [id number] DOMINGO: 01/19/20-1306 [facility] DR: Julien Sheikh MD REQ: [id number] RECD: 01/19/20151 STATUS: TUNDE MEJIA DR: Serenity Martin MD _ SOURCE: GAS ANTRUM SPDESC: ORDERED: Clotest Procedure Result Reported Site Clotest Final 01/20/20- 942 ML Clotest Negative * ML - Main Lab . END OF REPORT DEPARTMENT OF PATHOLOGY, [address] [place] [address] Jeet Hall M.D. Director [facility] # [id number] 4 Please note: The following may produce a false positive D Dimer test: - Rheumatoid factor greater than 60 IU/ml - Plasma hemoglobin greater than 0.05 gm/dl - Bilirubin greater than 50 mg/dl - Lipids greater than 1000 mg/dl - FDP greater than 20 ug/ml 5 Because ethnic data is not always [...] 5 Kidney failure <15 (or dialysis) 7 [id number] SEE RESULT BELOW Name: BETO PEREZ : [address]: Oj Quintero MD Acct: [id number] Unit: [id number] AGE: 89 Location: [facility] Re09/04/19 SEX: M Status: REG REF SPEC: [id number] DOMINGO: 09/04/19 [facility] DR: Oj Quintero MD REQ: [id number] RECD: 09/04/19 STATUS: MANPREET MEJIA DR: Serenity Hanson MD _ ORDERED: LEVEL 4 COMMENTS: [id number] FINAL DIAGNOSIS Skin, right mid forehead, excision: -- Scar, excised. -- No evidence of residual basal cell carcinoma. COMMENT: The previous lesion at this site ([id number]) has been completely excised. CLINICAL HISTORY See [facility] [id number] PRE-OPERATIVE DIAGNOSIS Basal cell carcinoma, suture lopez 12:00 medial apex margin GROSS DESCRIPTION The specimen is received in formalin labeled, Excision Basal Cell Carcinoma Right Mid Forehead, Suture Lopez 12:00 Medial [place] Margin, and consists of a 3.0 x [...] 1103 END OF REPORT DEPARTMENT OF PATHOLOGY, [address] [place] [address] Jeet Hall M.D. Director [facility] # [id number] Procedures Date Code Description Status 01/20/2020 03000 EKG Tracing & Interpretation Completed 01/11/2020 53696 ECHO Transthoracic, Real-Time 2D With Doppler And Color Completed Flow 01/11/2020 92797 ECHO Transthoracic, Real-Time 2D With Doppler And Color Completed Flow 12/21/2019 41322 EKG Tracing & Interpretation Completed 12/07/2019 80905 Inject/Drain Joint/Bursa Major W/O US Completed 12/15/2013 [id number] Colonoscopy Completed 10/21/2007 83792028 Colonoscopy Completed 02/18/2001 [id number] Colonoscopy Completed Medical Devices Description No Information Available Encounters Type Date Location Provider Dx Diagnosis Office Visit 01/14/2020 [facility] Gastroenterology Vanessa Rosas D50.9 Iron deficiency 1:10p Elsa, NILDA anemia, unspecified R60.0 Localized edema 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, unspecified Office Visit 12/31/2019 8:40a [facility] Internal Serenity R60.0 Localized edema [facility] Martin M.D. M25.562 Pain in left knee Office Visit 12/25/2019 9:15a [facility] Genopanfilo Clemens, M25.562 Pain in left at [place] M.D. 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 knee M25.462 Effusion, left knee M17.12 Unilateral primary osteoarthritis, left knee M54.32 Sciatica, left side Assessments Date Code Description Provider 01/20/2020 D50.9 Iron deficiency anemia, unspecified Oleg Oquendo M.D. 01/20/2020 R60.0 Localized edema Oleg Oquendo M.D. 01/20/2020 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, unspecified Oleg Oquendo M.D. 01/20/2020 I10 Essential (primary) hypertension Oleg Oquendo M.D. 01/20/2020 I50.22 Chronic systolic (congestive) heart Oleg Oquendo M.D. failure 01/14/2020 D50.9 Iron deficiency anemia, unspecified Vanessa Hunter NP 01/14/2020 R60.0 Localized edema Vanessa Hunter NP 01/14/2020 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, unspecified Vanessa Hunter NP 01/11/2020 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, unspecified Oelg Oquendo M.D. 01/11/2020 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, unspecified [place] [facility] Schedule 12/31/2019 R60.0 Localized edema Serenity Martin M.D. 12/31/2019 M25.562 Pain in left knee Serenity Martin M.D. 12/25/2019 M25.562 Pain in left knee Geno Clemens M.D. 12/25/2019 M25.462 Effusion, left knee Geno Clemens M.D. 12/25/2019 M17.12 Unilateral primary osteoarthritis, left Geno Clemens M.D. knee 12/21/2019 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, unspecified Oleg Oquendo M.D. 12/21/2019 I10 Essential (primary) hypertension Oleg Oquendo M.D. 12/21/2019 D64.9 Anemia, unspecified Oleg Oquendo M.D. 12/21/2019 I49.3 Ventricular premature depolarization Oleg Oquendo M.D. 12/21/2019 R60.0 Localized edema Oleg Oquendo M.D. 12/21/2019 I82.402 Deep venous thrombosis Oleg Oquendo M.D. 12/21/2019 I45.89 Sinus node dysfunction Oleg Oquendo M.D. 12/21/2019 R94.31 Abnormal electrocardiogram [ECG] [EKG] Oleg Oquendo M.D. 12/07/2019 M25.562 Pain in left knee Geno Clemens M.D. 12/07/2019 M25.462 Effusion, left knee Geno Clemens M.D. 12/07/2019 M17.12 Unilateral primary osteoarthritis, left Geno Clemens M.D. knee 12/07/2019 M54.32 Sciatica, left side Geno Clemens M.D. 11/27/2019 Z00.00 Encounter for general adult medical Serenity Martin M.D. examination without abnormal findings 11/27/2019 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, unspecified Serenity Martin M.D. 11/27/2019 I10 Essential (primary) hypertension Serenity Martin M.D. 11/27/2019 D64.9 Anemia, unspecified Serenity Martin M.D. Plan of Treatment Future Appointment(s):02/18/2020 1:00 pm - Julien Sheikh MD at [facility] Tlgbmjdwswczbqss60/16/2020 9:15 am - Geno Clemens M.D. at [facility]02/02/2020 3:00 pm - Alexandrea Brush MD, FAC, [facility] [place] [facility]/28/2020 9:30 am - Shimon Clifford M.D., [facility] at [place] [facility] AT [facility]/28/2020 3:15 pm - Julien Sheikh MD at [facility] Uxpgyocdnqddales69/18/2020 11:20 am - Oleg Oquendo M.D. at [facility]02/08/2020 9:00 am - Serenity Martin M.D. at [facility] Internal Medicine - [facility]01/20/2020 - Oleg Oquendo M.D.D50.9 Iron deficiency anemia, vpmkivfwoauU31.0 Localized rjgidM03.9 Cardiomyopathy, unspecifiedNew Labs: Protein Electrophoresis, Ordered: 01/20/20I10 Essential (primary) qspzmipsxjsdW98.22 Chronic systolic (congestive) heart failureFollow up:keep appt ov [facility] 3 mRecommendations:weigh daily take torsemide 5 mg if weight is 172 or higher at home with edema Functional Status Description No Information Available Mental Status Description No Information Available Referrals Refer to Reason for Referral Status Appt Date Julien Sheikh MD Scheduled 01/14/2020 [address] [place] [address] [phone]
--- OUTSIDE RECORDS SUMMARY | 2020-02-12 15:25 | XMS REPORT | Continuity of Care Document ---
:1930 External Reference #:[id number] Author Name Serenity Martin M.D. (transmitted by agent of provider Bessie Quiroz) Address [address], [place] [address] Care Team Providers Name Role Phone [facility] Care Team Information Admissions Advisor [place] - Physical Therapist Serenity Martin MD - Internal Care Team Information Admissions Advisor [phone] Medicine Oleg Oquendo MD - Cardiovascular Care Team Information Admissions Advisor Disease Julien Sheikh MD - Gastroenterology Care Team Information Admissions Advisor [phone] Problems Active Problems Provider Date Edema of [...] daily use Amoxicillin Take 4 tablets 20tabs Sreenity 11/27/2019 500mg Tablets 1 hour prior to [...] HCL 1-2 tab every 12 28tabs Geno Clemens, 12/25/2019 - 50mg hours as needed Kelsey [...] Injection Technetium TC 99M Golden Champagne, DO [facility] 04/20/2019 Tetrofosmin, Per Unit Dose Up To 40 Millicuries Injection Technetium TC 99M Golden Champagne, DO [facility] 04/20/2019 Tetrofosmin, Per Unit Dose [...] Geno Clemens M.D. 04/27/2015 Injection Depomedrol 80MG Leonarda Gregorio, RPA-C 02/01/2015 Injection Depomedrol 80MG Willi Caba M.D. 08/05/2014 Injection Depomedrol 80MG Willi Caba M.D. 01/21/2014 Injection Depomedrol 80MG Willi Caba M.D. 11/19/2013 Injection Depomedrol 80MG Willi Caba M.D. 02/24/2013 Injection Immunizations CPT Code Status Date Vaccine Lot # [id number] Given 09/25/2019 Influenza Virus Vaccine, Quadrivalent, Split, Preservative Free 83901 Given 09/24/2018 Influenza Virus Vaccine, Quadrivalent, Split, Preservative Free 10431 Given 09/23/2017 Influenza Virus Vaccine, Quadrivalent, Split, [id number] Preservative Free 96057 Given 09/23/2017 Pneumococcal Conjugate Vaccine 13 Valent For [id number] Intramuscular Use Vital Signs Date Vital Result [...] Facility Test Result H/L Range Note CBC Auto 02/08/2020 [facility] White Blood 5.5 10^3/uL Normal 3.5-10.[address] [place] [address] [phone] Red Blood Count 5.31 10^6/uL Normal 4.18-5.48 [...] Blood Cells % 0.1 Laboratory test 02/08/2020 [facility] Creatine 2680 U/L High 10-[address] Kinase(CK) [place] [address] [phone] Comp Metabolic 02/08/2020 [facility] Sodium 134 Low 135-[address] mmol/[place] [address] [phone] Potassium 4.0 mmol/L Normal 3.5-5.0 Chloride 101 [...] Egfr Non- 65.4 >60 Egfr 79.1 >60 1 Laboratory test 02/08/2020 [facility] C Reactive 12.59 mg/L High <8.[address] [place] [address] [phone] Erythrocyte Sed Rate 12 mm/Hr Normal 0-19 TSH (Thyroid Stim Horm) 1.88 mcIU/mL Normal 0.34-5.60 Influenza A & B 02/08/2020 [facility] Flu AB Disclaimer (SEE NOTE) [address] [place] [address] [phone] Influenza A Molecular Negative Negative Influenza B Molecular Negative Negative 3 Basic Metabolic 01/28/2020 [facility] Sodium 133 mmol/L Low 135-[address] [place] [address] [phone] Chloride 101 mmol/L Normal 101-111 Co2 Carbon Dioxide 28 mmol/L Normal 22-32 Glucose 81 mg/dL Normal 70-100 Blood Urea Nitrogen 17 mg/dL Normal 6-24 Creatinine 1.03 mg/dL Normal 0.67-1.17 BUN/Creatinine Ratio 16.5 Normal 8-20 Calcium 8.2 mg/dL Low 8.6-10.3 Egfr Non- 68.3 >60 Egfr 82.7 >60 4 Potassium 4.2 mmol/L Normal 3.5-5.0 Anion Gap 4 mmol/L Normal 2-11 Cath Panel 01/25/2020 [facility] Partial 28.1 seconds Normal 26.0-38.[address] [place] [address] [phone] CBC Auto 01/25/2020 [facility] White Blood 4.3 10^3/uL Normal 3.5-10.[address] [place] [address] [phone] Red Blood Count 5.07 10^6/uL Normal 4.18-5.48 [...] Red Blood Cells % 0.0 Inr/Protime 01/25/2020 [facility] Inr 0.99 Normal 0.82-1.09 5 [address] [place] [address] [phone] Basic Metabolic 01/25/2020 [facility] Sodium 134 mmol/L Low 135-145 Panel [address] [place] [address] [phone] Potassium 4.0 mmol/L Normal 3.5-5.0 Chloride 101 mmol/L Normal 101-111 Co2 Carbon Dioxide 27 mmol/L Normal 22-32 Anion Gap 6 mmol/L Normal 2-11 Glucose 104 mg/dL High 70-100 Blood Urea Nitrogen 26 mg/dL High 6-24 Creatinine 1.21 mg/dL High 0.67-1.17 BUN/Creatinine Ratio 21.5 High 8-20 Calcium 8.0 mg/dL Low 8.6-10.3 Egfr Non- 56.7 >60 Egfr 68.6 >60 6 Comp Metabolic 01/19/2020 [facility] Sodium 135 mmol/L Normal 135-145 Panel [address] [place] [address] [phone] Potassium 3.9 mmol/L Normal 3.5-5.0 Chloride 101 [...] Egfr Non- 61.4 >60 Egfr 74.3 >60 7 Iron & Iron Binding 01/19/2020 [facility] Iron 34 g/dL Low 50-[address] [place] [address] [phone] Unsaturated Iron Binding < 161 g/dL Total Iron Binding Capacity 176 g/dL Low 250-450 Transferrin 126 mg/dL Low 203-362 % Iron Saturation 19 % Normal 15-55 Laboratory test 01/19/2020 [facility] Erythropoietin 5.9 2.6 - [address] mIU/mL 18.5 [place] [address] [phone] Protein 01/19/2020 [facility] Total 5.2 g/dL Abnormal 6.3 - Electrophoresis [address] Protein(Pep) 7.9 [place] [address] [phone] Albumin 2.6 g/dL Abnormal 3.4-4.7 Alpha-1 Globulin 0.2 g/dL 0.1-0.3 Alpha-2 Globulin 0.9 g/dL 0.6-1.0 Beta Globulin 0.7 g/dL 0.7-1.2 Gamma Globulin 0.7 g/dL 0.6-1.6 Albumin/Globulin Ratio 1.01 Impression See Comment 9 Stool Occult 01/19/2020 [facility] Stool Occult SEE RESULT 10 Blood Di[address] Blood, [place] [address] [phone] Laboratory test 01/19/2020 [facility] Clotest SEE RESULT [address] [place] [address] [phone] Laboratory test 01/19/2020 [facility] B-Type 361 pg/mL High <= [address] Natriuretic 0 [place] [address] Peptide BNP [phone] CBC No Diff 01/19/2020 [facility] White Blood 5.3 Normal 3.5- [address] Count 10^3/uL 10.8 [place] [address] [phone] Red Blood Count 4.93 10^6/uL Normal 4.18-5.48 Hemoglobin 12.5 g/dL Low 14.0-18.0 Hematocrit 38 % Low 42-52 Mean Corpuscular Volume 78 fL Low 80-94 Mean Corpuscular Hemoglobin 25 pg Low 27-31 Mean Corpuscular HGB Conc 33 g/dL Normal 31-36 Red Cell Distribution Width 15 % Normal 10-15 Platelet Count 157 10^3/uL Normal 150-450 Mean Platelet Volume 9.0 fL Normal 7.4-10.4 Xray 01/14/2020 [facility] Chest PA & Lat <pending> [address] 2 [address] [place], [place] [id number] [phone] Laboratory 01/14/2020 [facility] Ferritin 708.4 ng/mL High 24- 336 test finding [address] [place] [address] [phone] Laboratory 12/23/2019 [facility] D Dimer 261 ng/mL High Less 12 test finding [address] [place] [address] [phone] Comp 12/23/2019 [facility] Sodium 136 mmol/L Normal 135-[address] [place] [address] [phone] Potassium 4.0 mmol/L Normal 3.5-5.0 Chloride 102 [...] Egfr Non- 64.7 >60 Egfr 78.3 >60 13 Iron & Iron Binding 12/23/2019 [facility] Iron 33 g/dL Low 50-[address] [place] [address] [phone] Unsaturated Iron Binding < 205 g/dL Total Iron Binding Capacity 220 g/dL Low 250-450 Transferrin 157 mg/dL Low 203-362 % Iron Saturation 15 % Normal 15-55 CBC Auto 12/23/2019 [facility] White Blood 5.5 10^3/uL Normal 3.5-10.[address] [place] [address] [phone] Red Blood Count 4.74 10^6/uL Normal 4.18-5.48 [...] Blood Cells % 0.0 Comp Metabolic 11/23/2019 [facility] Sodium 139 mmol/L Normal 135-[address] [place] [address] [phone] Potassium 3.8 mmol/L Normal 3.5-5.0 Chloride 107 [...] Egfr Non- 53.2 >60 Egfr 64.3 >60 14 CBC Auto 11/23/2019 [facility] White Blood 4.2 10^3/uL Normal 3.5-10.[address] [place] [address] [phone] Red Blood Count 4.69 10^6/uL Normal 4.18-5.48 [...] % Nucleated Red Blood Cells % 0.0 Laboratory test 09/04/2019 [facility] Surgical SEE RESULT 15, [address] [place] [address] [phone] 1 Because ethnic data is not always [...] 5 Kidney failure <15 (or dialysis) 2 Suboptimal collection technique may reduce sensitivity of test. Refer to the [facility] Test Catalog for collection information: [email or web address] As with all diagnostic procedures, the laboratory results obtained should be used in conjunction with other clinical information available to the physician, including confirmation by another method, as applicable. 3 Public Health Aide: [id number] 4 Because ethnic data is not always readily [...] 15-29 5 Kidney failure <15 (or dialysis) 5 Standard intensity warfarin therapeutic range: 2.0-3.0 High intensity warfarin therapeutic range: 2.5-3.5 6 Because ethnic data is not always [...] 5 Kidney failure <15 (or dialysis) 7 Because ethnic data is not always readily [...] 15-29 5 Kidney failure <15 (or dialysis) 8 Test Performed by: [place] [address] Lane Attendant: Norberto Cutler M.D. Ph.D.; CLIA# [id number] 9 RESULT: No apparent monoclonal protein on serum electrophoresis. Test Performed by: [place] [address] Lane Attendant: Norberto Cutler M.D. Ph.D.; CLIA# [id number] 10 SEE RESULT BELOW Name: BETO PEREZ : [address]: Julien Sheikh MD Acct: [id number] Unit: [id number] AGE: 89 Location: [facility] Re01/19/20 SEX: M Status: REG REF SPEC: [id number] [place]: 01/19/20-[address] [facility] [address]: Julien Sheikh MD REQ: [id number] RECD: 01/19/20152 STATUS: TUNDE MEJIA DR: Serenity Martin MD _ SOURCE: STOOL SPDESC: ORDERED: Occult Bl, Diag Procedure Result Reported Site Stool Occult Blood (1) Final 01/19/20- 1535 ML Stool Occult Blood Negative Collection Date (1) 01/19/20 * ML - Main Lab . END OF REPORT DEPARTMENT OF PATHOLOGY, [address] [place] [address] Jeet Hall M.D. Director JOVANY # [id number] 11 SEE RESULT BELOW Name: BETO PEREZ : [address]: Julien Sheikh MD Acct: [id number] Unit: [id number] AGE: 89 Location: ENDO Re01/19/20 SEX: M Status: REG REF SPEC: [id number] DOMINGO: 01/19/20-[address] [facility] [address]: Julien Sheikh MD REQ: [id number] RECD: 01/19/20-1517 STATUS: TUNDE MEJIA DR: Serenity Mratin MD _ SOURCE: GAS ANTRUM SPDESC: ORDERED: Clotest Procedure Result Reported Site Clotest Final 01/20/20- 942 ML Clotest Negative * ML - Main Lab . END OF REPORT DEPARTMENT OF PATHOLOGY, [address] [place] [address] Jeet Hall M.D. Director [facility] # [id number] 12 Please note: The following may produce a false positive D Dimer test: - Rheumatoid factor greater than 60 IU/ml - Plasma hemoglobin greater than 0.05 gm/dl - Bilirubin greater than 50 mg/dl - Lipids greater than 1000 mg/dl - FDP greater than 20 ug/ml 13 Because ethnic data is not always readily [...] 15-29 5 Kidney failure <15 (or dialysis) 14 Because ethnic data is not always readily [...] 15-29 5 Kidney failure <15 (or dialysis) 15 [id number] 16 SEE RESULT BELOW Name: BETO PEREZ : [address]: Oj Quintero MD Acct: [id number] Unit: [id number] AGE: 89 Location: [facility] Re09/04/19 SEX: M Status: REG REF SPEC: [id number] DOMINGO: 09/04/[address] [facility] [address]: Oj Quintero MD REQ: [id number] RECD: 09/04/19 STATUS: MANPREET MEJIA DR: Serenity Hanson MD _ ORDERED: LEVEL 4 COMMENTS: [id number] FINAL DIAGNOSIS Skin, right mid forehead, excision: -- Scar, excised. -- No evidence of residual basal cell carcinoma. COMMENT: The previous lesion at this site ([id number]) has been completely excised. CLINICAL HISTORY See [facility] [id number] PRE-OPERATIVE DIAGNOSIS Basal cell carcinoma, suture lopez 12:00 medial apex margin GROSS DESCRIPTION The specimen is received in formalin labeled, Excision Basal Cell Carcinoma Right Mid Forehead, Suture Lopez 12:00 Medial [place] Margin, and consists of a 3.0 x [...] 1103 END OF REPORT DEPARTMENT OF PATHOLOGY, [address] [place] [address] Jeet Hall M.D. Director [facility] # [id number] Procedures Date Code Description Status 01/20/2020 90115 EKG Tracing & Interpretation Completed 01/19/2020 72452 Endoscopy Upper GI Biopsy Completed 01/11/2020 89290 ECHO Transthoracic, Real-Time 2D With Doppler And Color Completed Flow 01/11/2020 84059 ECHO Transthoracic, Real-Time 2D With Doppler And Color Completed Flow 12/21/2019 58263 EKG Tracing & Interpretation Completed 12/07/2019 96034 Inject/Drain Joint/Bursa Major W/O US Completed 12/15/2013 [id number] Colonoscopy Completed 10/21/2007 79582965 Colonoscopy Completed 02/18/2001 58201142 Colonoscopy Completed Medical Devices Description No Information Available Encounters Type Date Location Provider Dx Diagnosis Office Visit 02/08/2020 [facility] Serenity Martin, M79.10 Myalgia, 9:00a Medicine - Mary Jo Cole unspecified site J06.9 Acute upper respiratory infection, unspecified R19.7 Diarrhea, unspecified Office Visit 02/02/2020 [place] Alexandrea Hayden 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, 3:00p Cardiology Of MD Trudi, unspecified [facility] Office Visit 01/20/2020 Zoya Piedra D50.9 Iron deficiency 10:30a Cardiology Kelsey Oquendo anemia, unspecified R60.0 Localized edema 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, unspecified I10 Essential (primary) hypertension I50.22 Chronic systolic (congestive) heart failure I49.5 Sick sinus syndrome I49.3 Ventricular premature depolarization I45.19 Other right bundle-branch block I45.2 Bifascicular block R94.31 Abnormal electrocardiogram [ECG] [EKG] Office Visit 01/14/2020 [facility] Gastroenterology Vanessa D50.9 Iron deficiency 1:10p Elsa Dumont NP unspecified R60.0 Localized edema 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, unspecified Office Visit 12/31/2019 8:40a [facility] Internal Serenity R60.0 Localized edema [facility] - [place] Jo Martin M.D. M25.562 Pain in left knee Office Visit 12/25/2019 9:15a [facility] Geno Clemens, M25.562 [facility] M25.462 Effusion, left knee M17.12 Unilateral primary osteoarthritis, left knee Office Visit 12/21/2019 [place] Oleg Piedra 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, 3:20p Cardiology Kris Oquendo M.D. unspecified [facility] I10 Essential (primary) hypertension D64.9 Anemia, unspecified I49.3 Ventricular premature depolarization R60.0 Localized edema I82.402 Acute embolism and thombos unsp deep veins of l low extrem I45.89 Other specified conduction disorders R94.31 Abnormal electrocardiogram [ECG] [EKG] Office Visit 12/07/2019 9:00a [facility] Geno Clemens M25.562 Pain in left at [place] M.D. knee M25.462 Effusion, left knee M17.12 Unilateral primary osteoarthritis, left knee M54.32 Sciatica, left side Assessments Date Code Description Provider 02/08/2020 M79.10 Myalgia, unspecified site Serenity Martin M.D. 02/08/2020 J06.9 Acute upper respiratory infection, Serenity Martin M.D. unspecified 02/08/2020 R19.7 Diarrhea, unspecified Serenity Martin M.D. 02/02/2020 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, unspecified Alexandrea Brush MD, [facility] 01/20/2020 D50.9 Iron deficiency anemia, unspecified Oleg [...] Iron deficiency anemia, unspecified Vanessa Hunter , NILDA 01/14/2020 R60.0 Localized edema Vanessa Hunter NP 01/14/2020 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, unspecified Vanessa Hunter NP 01/11/2020 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, unspecified Oleg Oquendo M.D. 01/11/2020 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, unspecified [place] ECHO Schedule 12/31/2019 R60.0 Localized edema Serenity Martin M.D. 12/31/2019 M25.562 Pain in left knee Serenity Martin M.D. 12/25/2019 M25.562 Pain in left knee Geno Clemens M.D. 12/25/2019 M25.462 Effusion, left knee Geno Clemens M.D. 12/25/2019 M17.12 Unilateral primary osteoarthritis, Geno Clemens M.D. left knee 12/21/2019 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, unspecified [...] Geno Clemens M.D. 12/07/2019 M17.12 Unilateral primary osteoarthritisGeno M.D. left knee 12/07/2019 M54.32 Sciatica, left side Geno Clemens M.D. 11/27/2019 Z00.00 Encounter for general adult medical Serenity Martin M.D. examination without abnormal findings 11/27/2019 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, unspecified Serenity Martin M.D. 11/27/2019 I10 Essential (primary) hypertension Serenity Martin M.D. 11/27/2019 D64.9 Anemia, unspecified Serenity Martin M.D. Plan of Treatment Future Appointment(s):02/25/2020 9:00 am - Julien Sheikh MD at [facility] [id number]/16/2020 9:15 am - Geno Clemens M.D. at [facility] at Vbmlca6802/17/2020 11:20 am - Oleg Oquendo M.D. at [place] Xqlewnxgvx00/ 03/2020 - Alexandrea Brush MD, [facility], [id number] Cardiomyopathy, unspecifiedFollow up:Dr Oquendo as scheduled Functional Status Description No Information Available Mental Status Description No Information Available Referrals Refer to Reason for Referral Status Appt Date Julien Sheikh MD Scheduled 01/14/2020 [address] [place] [address] [phone]
--- OUTSIDE RECORDS SUMMARY | 2020-02-12 15:25 | XMS REPORT | Continuity of Care Document ---
:1930 External Reference #:[id number] Author Name Vanessa Hunter NP (transmitted by agent of provider Stephanie Estevez) Address [address] [place] [address] Care Team Providers Name Role Phone [facility] Care Team Information Customer Retention Specialist Crozier - Physical Therapist Serenity Martin MD - Internal Care Team Information Customer Retention Specialist Medicine Oleg Oquendo MD - Cardiovascular Care Team Information Customer Retention Specialist [phone] Disease Julien Sheikh MD - Gastroenterology Care Team Information Customer Retention Specialist Problems Active Problems Provider Date Edema of [...] alcoholic drink per week Smoking Status Reviewed: 02/02/20 Patient has never smoked Exercise Type/Frequency Exercises sporadically Allergies, Adverse Reactions, Alerts Active Allergies Reaction Severity Comments Date Novocain Hives 01/15/2014 Honey Bee Venom Rash & Itching 01/18/2020 Medications Active Medications SIG Qnty Indications Ordering Date Provider Entresto take 1 tab by 60tabs Oleg Piedra 01/29/2020 24-26mg Tablets mouth twice Kelsey Oquendo daily Aspir-Low 1 by mouth I82.402 Oleg Piedra [...] Injection Technetium TC 99M Golden Champagne, DO [facility] 04/20/2019 Tetrofosmin, Per Unit Dose Up To 40 Millicuries Injection Technetium TC 99M Golden Champagne, DO [facility] 04/20/2019 Tetrofosmin, Per Unit Dose Up To [...] CPT Code Status Date Vaccine Lot # [id number] Given 09/25/2019 Influenza Virus Vaccine, Quadrivalent, Split, Preservative Free 76138 Given 09/24/2018 Influenza Virus Vaccine, Quadrivalent, Split, Preservative Free 94105 Given 09/23/2017 Influenza Virus Vaccine, Quadrivalent, Split, [id number] Preservative Free 99238 Given 09/23/2017 Pneumococcal Conjugate Vaccine 13 Valent For [id number] Intramuscular Use Vital Signs Date Vital Result Comment 02/02/2020 2:42pm Height 69 inches 5'9" Weight 177.50 lb with shoes Heart Rate 72 /min left wrist BP Systolic Sitting 120 mmHg left arm, reg cuff BP Diastolic Sitting 58 mmHg left arm, reg cuff BP Systolic Standing 116 mmHg left arm, reg cuff BP Diastolic Standing 62 mmHg left arm, reg cuff BMI (Body Mass Index) 26.2 kg/m2 01/20/2020 10:26am Height 69 inches 5'9" Weight 177.75 lb with shoes/coat home weight 170 lbs Heart Rate 48 /min Radial,skipped beats BP Systolic Sitting 128 mmHg LA, reg cuff BP Diastolic Sitting 58 mmHg LA, reg cuff BP Systolic Standing 118 mmHg repeat left arm sitting BP Diastolic Standing 62 mmHg repeat left arm sitting BMI (Body Mass Index) 26.2 kg/m2 Ejection Fraction 30%-35% Echo 01/11/20 Results Test Acquired Date Facility Test Result H/L Range Note Basic Metabolic 01/28/2020 [facility] Sodium 133 mmol/L Low 135-[address] [place] [address] [phone] Chloride 101 mmol/L Normal 101-111 Co2 Carbon Dioxide 28 mmol/L Normal 22-32 Glucose 81 mg/dL Normal 70-100 Blood Urea Nitrogen 17 mg/dL Normal 6-24 Creatinine 1.03 mg/dL Normal 0.67-1.17 BUN/Creatinine Ratio 16.5 Normal 8-20 Calcium 8.2 mg/dL Low 8.6-10.3 Egfr Non- 68.3 >60 Egfr 82.7 >60 1 Potassium 4.2 mmol/L Normal 3.5-5.0 Anion Gap 4 mmol/L Normal 2-11 Cath Panel 01/25/2020 [facility] Partial 28.1 seconds Normal 26.0-38.[address] [place] [address] PTT [phone] CBC Auto 01/25/2020 [facility] White Blood 4.3 10^3/uL Normal 3.5-10.[address] [place] [address] [phone] Red Blood Count 5.07 10^6/uL Normal 4.18-5.48 [...] Red Blood Cells % 0.0 Inr/Protime 01/25/2020 [facility] Inr 0.99 Normal 0.82-1.[address] [place] [address] [phone] Basic Metabolic 01/25/2020 [facility] Sodium 134 mmol/L Low 135-[address] [place] [address] [phone] Potassium 4.0 mmol/L Normal 3.5-5.0 Chloride 101 mmol/L Normal 101-111 Co2 Carbon Dioxide 27 mmol/L Normal 22-32 Anion Gap 6 mmol/L Normal 2-11 Glucose 104 mg/dL High 70-100 Blood Urea Nitrogen 26 mg/dL High 6-24 Creatinine 1.21 mg/dL High 0.67-1.17 BUN/Creatinine Ratio 21.5 High 8-20 Calcium 8.0 mg/dL Low 8.6-10.3 Egfr Non- 56.7 >60 Egfr 68.6 >60 3 Comp Metabolic 01/19/2020 [facility] Sodium 135 mmol/L Normal 135-[address] [place] [address] [phone] Potassium 3.9 mmol/L Normal 3.5-5.0 Chloride 101 [...] Egfr Non- 61.4 >60 Egfr 74.3 >60 4 Iron & Iron Binding 01/19/2020 [facility] Iron 34 g/dL Low 50-[address] [place] [address] [phone] Unsaturated Iron Binding < 161 g/dL Total Iron Binding Capacity 176 g/dL Low 250-450 Transferrin 126 mg/dL Low 203-362 % Iron Saturation 19 % Normal 15-55 Laboratory test 01/19/2020 [facility] Erythropoietin 5.9 2.6 - [address] mIU/mL 18.5 [place] [address] [phone] Protein 01/19/2020 [facility] Total 5.2 g/dL Abnormal 6.3 - Electrophoresis [address] Protein(Pep) 7.9 [place] [address] [phone] Albumin 2.6 g/dL Abnormal 3.4-4.7 Alpha-1 Globulin 0.2 g/dL 0.1-0.3 Alpha-2 Globulin 0.9 g/dL 0.6-1.0 Beta Globulin 0.7 g/dL 0.7-1.2 Gamma Globulin 0.7 g/dL 0.6-1.6 Albumin/Globulin Ratio 1.01 Impression See Comment 6 Stool Occult 01/19/2020 [facility] Stool Occult SEE RESULT [address] Blood, [place] [address] [phone] Laboratory test 01/19/2020 [facility] Clotest SEE RESULT [address] [place] [address] [phone] Laboratory test 01/19/2020 [facility] B-Type 361 pg/mL High <= [address] Natriuretic 0 [place] [address] Peptide BNP [phone] CBC No Diff 01/19/2020 [facility] White Blood 5.3 10^3/uL Normal 3.5- [address] Count 10.8 [place] [address] [phone] Red Blood Count 4.93 10^6/uL Normal 4.18-5.48 Hemoglobin 12.5 g/dL Low 14.0-18.0 Hematocrit 38 % Low 42-52 Mean Corpuscular Volume 78 fL Low 80-94 Mean Corpuscular Hemoglobin 25 pg Low 27-31 Mean Corpuscular HGB Conc 33 g/dL Normal 31-36 Red Cell Distribution Width 15 % Normal 10-15 Platelet Count 157 10^3/uL Normal 150-450 Mean Platelet Volume 9.0 fL Normal 7.4-10.4 Laboratory 01/14/2020 [facility] Ferritin 708.4 High 24-336 test finding [address] ng/[place] [address] [phone] Xray 01/14/2020 [facility] Chest PA & Lat 2 <pending [address] VWS > [place], [place] [id number] [phone] Laboratory 12/23/2019 [facility] D Dimer 261 High Less Than [address] Quantitative ng/mL [address] [place] [address] [phone] Comp Metabolic 12/23/2019 [facility] Sodium 136 Normal 135- 145 Panel 101 mmol/[place] [address] [phone] Potassium 4.0 mmol/L Normal 3.5-5.0 Chloride 102 [...] Egfr Non- 64.7 >60 Egfr 78.3 >60 10 Iron & Iron Binding 12/23/2019 [facility] Iron 33 g/dL Low 50-[address] [place] [address] [phone] Unsaturated Iron Binding < 205 g/dL Total Iron Binding Capacity 220 g/dL Low 250-450 Transferrin 157 mg/dL Low 203-362 % Iron Saturation 15 % Normal 15-55 CBC Auto 12/23/2019 [facility] White Blood 5.5 10^3/uL Normal 3.5-10.[address] [place] [address] [phone] Red Blood Count 4.74 10^6/uL Normal 4.18-5.48 [...] Blood Cells % 0.0 CBC Auto 11/23/2019 [facility] White Blood 4.2 10^3/uL Normal 3.5-10.[address] [place] [address] [phone] Red Blood Count 4.69 10^6/uL Normal 4.18-5.48 [...] Blood Cells % 0.0 Comp Metabolic 11/23/2019 [facility] Sodium 139 mmol/L Normal 135-[address] [place], [place] [address] [phone] Potassium 3.8 mmol/L Normal 3.5-5.0 Chloride 107 [...] Egfr Non- 53.2 >60 Egfr 64.3 >60 11 Laboratory test 09/04/2019 [facility] Surgical SEE RESULT , [address] [place] [address] [phone] 1 Because ethnic data is not always [...] 5 Kidney failure <15 (or dialysis) 2 Standard intensity warfarin therapeutic range: 2.0-3.0 High intensity warfarin therapeutic range: 2.5-3.5 3 Because ethnic data is not always readily [...] 15-29 5 Kidney failure <15 (or dialysis) 4 Because ethnic data is not always [...] 5 Kidney failure <15 (or dialysis) 5 Test Performed by: [place] [address] Air Conditioning Unit Assembler: Norberto Cutler M.D. Ph.D.; CLIA# [id number] 6 RESULT: No apparent monoclonal protein on serum electrophoresis. Test Performed by: [place] [address] Air Conditioning Unit Assembler: Norberto Cutler M.D. Ph.D.; CLIA# [id number] 7 SEE RESULT BELOW Name: BETO PEREZ : [address]: Julien Sheikh MD Acct: [id number] Unit: [id number] AGE: 89 Location: ENDO Re01/19/20 SEX: M Status: REG REF SPEC: [id number] DOMINGO: 01/19/20-[address]: Julien Sheikh MD REQ: [id number] RECD: 01/19/20 STATUS: TUNDE MEJIA DR: Serenity Martin MD _ SOURCE: STOOL SPDESC: ORDERED: Occult Bl, Diag Procedure Result Reported Site Stool Occult Blood (1) Final 01/19/20- 1535 ML Stool Occult Blood Negative Collection Date (1) 01/19/20 * [facility] - Main Lab . END OF REPORT DEPARTMENT OF PATHOLOGY, [address] [place] [address] Jeet Hall M.D. Director JOVANY # [id number] SEE RESULT BELOW Name: BETO PEREZ : [address]: Julien Sheikh MD Acct: [id number] Unit: [id number] AGE: 89 Location: ENDO Re01/19/20 SEX: M Status: REG REF SPEC: [id number] DOMINGO: 01/19/20-1306 [facility] DR: Julien Sheikh MD REQ: [id number] RECD: 01/19/20-1518 STATUS: TUNDE MEJIA DR: Serenity Martin MD _ SOURCE: GAS ANTRUM SPDESC: ORDERED: Clotest Procedure Result Reported Site Clotest Final 01/20/20942 ML Clotest Negative * ML - Main Lab . END OF REPORT DEPARTMENT OF PATHOLOGY, [address] [place] [address] Jeet Hall M.D. Director [facility] # [id number] Please note: The following may produce a false positive D Dimer test: - Rheumatoid factor greater than 60 IU/ml - Plasma hemoglobin greater than 0.05 gm/dl - Bilirubin greater than 50 mg/dl - Lipids greater than 1000 mg/dl - FDP greater than 20 ug/ml 10 Because ethnic data is not always readily [...] 15-29 5 Kidney failure <15 (or dialysis) 11 Because ethnic data is not always [...] 5 Kidney failure <15 (or dialysis) 12 [id number] SEE RESULT BELOW Name: BETO EPREZ : [address]: Oj Quintero MD Acct: [id number] Unit: [id number] AGE: 89 Location: [facility] Re09/04/19 SEX: M Status: REG REF SPEC: [id number] DOMINGO: 09/04/19 [facility] [address]: Oj Quintero MD REQ: [id number] RECD: 09/04/190 STATUS: MANPREET MEJIA DR: Serenity Hanson MD _ ORDERED: LEVEL 4 COMMENTS: [id number] FINAL DIAGNOSIS Skin, right mid forehead, excision: -- Scar, excised. -- No evidence of residual basal cell carcinoma. COMMENT: The previous lesion at this site ([id number]) has been completely excised. CLINICAL HISTORY See [facility] [id number] PRE-OPERATIVE DIAGNOSIS Basal cell carcinoma, suture lopez 12:00 medial apex margin GROSS DESCRIPTION The specimen is received in formalin labeled, Excision Basal Cell Carcinoma Right Mid Forehead, Suture Lopez 12:00 Medial [place] Margin, and consists of a 3.0 x [...] 1103 END OF REPORT DEPARTMENT OF PATHOLOGY, [address] [place] [address] Jeet Hall M.D. Director [facility] # [id number] Procedures Date Code Description Status 01/20/2020 43468 EKG Tracing & Interpretation Completed 01/19/2020 69584 Endoscopy Upper GI Biopsy Completed 01/11/2020 99531 ECHO Transthoracic, Real-Time 2D With Doppler And Color Completed Flow 01/11/2020 31259 ECHO Transthoracic, Real-Time 2D With Doppler And Color Completed Flow 12/21/2019 91654 EKG Tracing & Interpretation Completed 12/07/2019 52635 Inject/Drain Joint/Bursa Major W/O US Completed 12/15/2013 [id number] Colonoscopy Completed 10/21/2007 [id number] Colonoscopy Completed 02/18/2001 [id number] Colonoscopy Completed Medical Devices Description No Information Available Encounters Type Date Location Provider Dx Diagnosis Office Visit 02/02/2020 [facility] Marcis T. 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 [facility] MD Trudi, unspecified FAC, [facility] Office Visit 01/20/2020 [facility] Oleg Piedra D50.9 Iron deficiency 10:30a Kelsey Oquendo anemia, unspecified R60.0 Localized edema 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, unspecified I10 Essential (primary) hypertension I50.22 Chronic systolic (congestive) heart failure I49.5 Sick sinus syndrome I49.3 Ventricular premature depolarization I45.19 Other right bundle-branch block I45.2 Bifascicular block R94.31 Abnormal electrocardiogram [ECG] [EKG] Office Visit 01/14/2020 [facility] Vanessa D50.9 Iron deficiency 1:10p Alison anemia, Elsa, DIRECTOR OF RECRUITMENT unspecified R60.0 Localized edema 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, unspecified Office Visit 12/31/2019 8:40a [facility] Serenity R60.0 Localized edema [facility] Martin M.D. M25.562 Pain in left knee Office Visit 12/25/2019 9:15a [facility] Geno Clemens M25.562 [facility] M25.462 Effusion, left knee M17.12 Unilateral primary osteoarthritis, left knee Office Visit 12/21/2019 [facility] Oleg Piedra 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, 3:20p Cardiology Of Kelsey Oquendo unspecified [facility] I10 Essential (primary) hypertension D64.9 Anemia, unspecified I49.3 Ventricular premature depolarization R60.0 Localized edema I82.402 Acute embolism and thombos unsp deep veins of l low extrem I45.89 Other specified conduction disorders R94.31 Abnormal electrocardiogram [ECG] [EKG] Office Visit 12/07/2019 9:00a [facility] Geno Clemens M25.562 [facility] M25.462 Effusion, left knee M17.12 Unilateral primary osteoarthritis, left knee M54.32 Sciatica, left side Assessments Date Code Description Provider 02/02/2020 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, unspecified Alexandrea Brush MD, FACC, [facility] 01/20/2020 D50.9 Iron deficiency anemia, unspecified Oleg [...] Iron deficiency anemia, unspecified Vanessa Hunter , DIRECTOR OF RECRUITMENT 01/14/2020 R60.0 Localized edema Vanessa Hunter, DIRECTOR OF RECRUITMENT 01/14/2020 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, unspecified Vanessa Hunter, DIRECTOR OF RECRUITMENT 01/11/2020 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, unspecified Oleg Oquendo M.D. 01/11/2020 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, unspecified [place] ECHO Schedule 12/31/2019 R60.0 Localized edema Serenity [...] Oquendo M.D. 12/21/2019 I45.89 Sinus node dysfunction Olge Oquendo M.D. 12/21/2019 R94.31 Abnormal electrocardiogram [ECG] [...] Serenity Martin M.D. Plan of Treatment Future Appointment(s):02/08/2020 3:45 pm - Julien Sheikh MD at [facility] [id number]/16/2020 9:15 am - Geno Clemens M.D. at [facility] at Kshsok7902/08/2020 9:00 am - Serenity Martin M.D. at [facility] - Ccmob02/02/2020 - Alexandrea Brush MD, [facility], [id number] Cardiomyopathy, unspecifiedFollow up:Dr Oquendo as scheduled Functional Status Description No Information Available Mental Status Description No Information Available Referrals Refer to Reason for Referral Status Appt Date Julien Sheikh MD Scheduled 01/14/2020 [address] [place] [address] [phone]
--- OUTSIDE RECORDS SUMMARY | 2020-02-12 15:25 | XMS REPORT | Continuity of Care Document ---
:1930 External Reference #:[id number] Author Name Alexandrea Brush MD, [facility], [facility] (transmitted by agent of provider Sybil Roach) Address [address] [place] [id number] Care Team Providers Name Role Phone Glenda Physical Therapy Care Team Information General Manager Land Department [phone] [place] - Physical Therapist Serenity Martin MD - Internal Care Team Information General Manager Land Department Medicine Oleg Oquendo MD - Cardiovascular Care Team Information General Manager Land Department [phone] Disease Julien Sheikh MD - Gastroenterology Care Team Information General Manager Land Department Problems Active Problems Provider Date Edema of [...] Injection Technetium TC 99M Golden Champagne, DO [facility] 04/20/2019 Tetrofosmin, Per Unit Dose Up To 40 Millicuries Injection Technetium TC 99M Golden Champagne, DO [facility] 04/20/2019 Tetrofosmin, Per Unit Dose Up [...] CPT Code Status Date Vaccine Lot # [id number] Given 09/25/2019 Influenza Virus Vaccine, Quadrivalent, Split, Preservative Free [id number] Given 09/24/2018 Influenza Virus Vaccine, Quadrivalent, Split, Preservative Free 74210 Given 09/23/2017 Influenza Virus Vaccine, Quadrivalent, Split, [id number] Preservative Free 83265 Given 09/23/2017 Pneumococcal Conjugate Vaccine 13 Valent For [id number] Intramuscular Use Vital Signs Date Vital Result [...] Result H/L Range Note Basic Metabolic 01/28/2020 [facility] Sodium 133 mmol/L Low 135-[address] [place] [address] [phone] Chloride 101 mmol/L Normal 101-111 Co2 Carbon Dioxide 28 mmol/L Normal 22-32 Glucose 81 mg/dL Normal 70-100 Blood Urea Nitrogen 17 mg/dL Normal 6-24 Creatinine 1.03 mg/dL Normal 0.67-1.17 BUN/Creatinine Ratio 16.5 Normal 8-20 Calcium 8.2 mg/dL Low 8.6-10.3 Egfr Non- 68.3 >60 Egfr 82.7 >60 1 Potassium 4.2 mmol/L Normal 3.5-5.0 Anion Gap 4 mmol/L Normal 2-11 Cath Panel 01/25/2020 [facility] Partial 28.1 seconds Normal 26.0-38.[address] [place] [address] PTT [phone] CBC Auto 01/25/2020 [facility] White Blood 4.3 10^3/uL Normal 3.5-10.[address] [place] [address] [phone] Red Blood Count 5.07 10^6/uL Normal 4.18-5.48 [...] Red Blood Cells % 0.0 Inr/Protime 01/25/2020 [facility] Inr 0.99 Normal 0.82-1.[address] [place] [address] [phone] Basic Metabolic 01/25/2020 [facility] Sodium 134 mmol/L Low 135-[address] [place] [address] [phone] Potassium 4.0 mmol/L Normal 3.5-5.0 Chloride 101 mmol/L Normal 101-111 Co2 Carbon Dioxide 27 mmol/L Normal 22-32 Anion Gap 6 mmol/L Normal 2-11 Glucose 104 mg/dL High 70-100 Blood Urea Nitrogen 26 mg/dL High 6-24 Creatinine 1.21 mg/dL High 0.67-1.17 BUN/Creatinine Ratio 21.5 High 8-20 Calcium 8.0 mg/dL Low 8.6-10.3 Egfr Non- 56.7 >60 Egfr 68.6 >60 3 Comp Metabolic 01/19/2020 [facility] Sodium 135 mmol/L Normal 135-[address] [place] [address] [phone] Potassium 3.9 mmol/L Normal 3.5-5.0 Chloride 101 [...] >60 4 Iron & Iron Binding 01/19/2020 [facility] Iron 34 g/dL Low 50-[address] [place] [address] [phone] Unsaturated Iron Binding < 161 g/dL Total Iron Binding Capacity 176 g/dL Low 250-450 Transferrin 126 mg/dL Low 203-362 % Iron Saturation 19 % Normal 15-55 Laboratory test 01/19/2020 [facility] Erythropoietin 5.9 2.6 - [address] mIU/mL 18.5 [place] [address] [phone] Protein 01/19/2020 [facility] Total 5.2 g/dL Abnormal 6.3 - Electrophoresis [address] Protein(Pep) 7.9 [place] [address] [phone] Albumin 2.6 g/dL Abnormal 3.4-4.7 Alpha-1 Globulin 0.2 g/dL 0.1-0.3 Alpha-2 Globulin 0.9 g/dL 0.6-1.0 Beta Globulin 0.7 g/dL 0.7-1.2 Gamma Globulin 0.7 g/dL 0.6-1.6 Albumin/Globulin Ratio 1.01 Impression See Comment 6 Stool Occult 01/19/2020 [facility] Stool Occult SEE RESULT 7 Blood Diag [address] Blood, [place] [address] [phone] Laboratory test 01/19/2020 [facility] Clotest SEE RESULT [address] [place] [address] [phone] Laboratory test 01/19/2020 [facility] B-Type 361 pg/mL High <= [address] Natriuretic 0 [place] [address] Peptide BNP [phone] CBC No Diff 01/19/2020 [facility] White Blood 5.3 10^3/uL Normal 3.5- [address] Count 10.8 [place] [address] [phone] Red Blood Count 4.93 10^6/uL Normal 4.18-5.48 Hemoglobin 12.5 g/dL Low 14.0-18.0 Hematocrit 38 % Low 42-52 Mean Corpuscular Volume 78 fL Low 80-94 Mean Corpuscular Hemoglobin 25 pg Low 27-31 Mean Corpuscular HGB Conc 33 g/dL Normal 31-36 Red Cell Distribution Width 15 % Normal 10-15 Platelet Count 157 10^3/uL Normal 150-450 Mean Platelet Volume 9.0 fL Normal 7.4-10.4 Laboratory 01/14/2020 [facility] Ferritin 708.4 High 24-336 test finding [address] ng/[place] [address] [phone] Xray 01/14/2020 [facility] Chest PA & Lat 2 <pending [address] VWS > [place], [place] [id number] [phone] Laboratory 12/23/2019 [facility] D Dimer 261 High Less Than 9 test finding [address] Quantitative ng/mL 230 [place] [address] [phone] Comp Metabolic 12/23/2019 [facility] Sodium 136 Normal 135- [address] mmol/[place] [address] [phone] Potassium 4.0 mmol/L Normal 3.5-5.0 Chloride 102 [...] >60 10 Iron & Iron Binding 12/23/2019 [facility] Iron 33 g/dL Low 50-[address] [place] [address] [phone] Unsaturated Iron Binding < 205 g/dL Total Iron Binding Capacity 220 g/dL Low 250-450 Transferrin 157 mg/dL Low 203-362 % Iron Saturation 15 % Normal 15-55 CBC Auto 12/23/2019 [facility] White Blood 5.5 10^3/uL Normal 3.5-10.[address] [place] [address] [phone] Red Blood Count 4.74 10^6/uL Normal 4.18-5.48 [...] Blood Cells % 0.0 CBC Auto 11/23/2019 [facility] White Blood 4.2 10^3/uL Normal 3.5-10.[address] [place] [address] [phone] Red Blood Count 4.69 10^6/uL Normal 4.18-5.48 [...] Blood Cells % 0.0 Comp Metabolic 11/23/2019 [facility] Sodium 139 mmol/L Normal 135-[address] [place], [place] [address] [phone] Potassium 3.8 mmol/L Normal 3.5-5.0 Chloride 107 [...] Egfr 64.3 >60 11 Laboratory test 09/04/2019 [facility] Surgical SEE RESULT 12, [address] [place] [address] [phone] 1 Because ethnic data is not always [...] <15 (or dialysis) 5 Test Performed by: [place] [address] Insole Taper: Norberto Cutler M.D. Ph.D.; CLIA# [id number] 6 RESULT: No apparent monoclonal protein on serum electrophoresis. Test Performed by: [place] [address] [employer]sole T[employer]: Norberto Cutler M.D. Ph.D.; CLIA# [id number] 7 SEE RESULT BELOW Name: BETO PEREZ : [address]: Julien Sheikh MD Acct: [id number] Unit: [id number] AGE: 89 Location: ENDO Re01/19/20 SEX: M Status: REG REF SPEC: [id number] DOMING[place]: 01/19/20-[address]: Julien Sheikh MD REQ: [id number] RECD: 01/19/20-152 STATUS: TUNDE MEJIA DR: Serenity Martin MD _ SOURCE: STOOL SPDESC: ORDERED: Occult Bl, Diag Procedure Result Reported Site Stool Occult Blood (1) Final 01/19/20- 1535 ML Stool Occult Blood Negative Collection Date (1) 01/19/20 * ML - Main Lab . END OF REPORT DEPARTMENT OF PATHOLOGY, [address] [place] [address] Jeet Hall M.D. Director JOVANY # [id number] SEE RESULT BELOW Name: BETO PEREZ : [address]: Julien Sheikh MD Acct: [id number] Unit: [id number] AGE: 89 Location: ENDO Re01/19/20 SEX: M Status: REG REF SPEC: [id number] [place]: 01/19/20-1306 [facility] DR: Julien Sheikh MD REQ: [id number] RECD: 01/19/20 STATUS: TUNDE MEJIA DR: Serenity Martin MD _ SOURCE: GAS ANTRUM SPDESC: ORDERED: Clotest Procedure Result Reported Site Clotest Final 01/20/20- 43 ML Clotest Negative * ML - Main Lab . END OF REPORT DEPARTMENT OF PATHOLOGY, [address] [place] [address] Jeet Hall M.D. Director [facility] # [id number] Please note: The following may produce [...] 5 Kidney failure <15 (or dialysis) 12 [id number] SEE RESULT BELOW Name: BETO PEREZ : [address]: Oj Quintero MD Acct: [id number] Unit: [id number] AGE: 89 Location: [facility] Re09/04/19 SEX: M Status: REG REF SPEC: [id number] DOMINGO: 09/04/19 [facility] DR: Oj Quintero MD REQ: [id number] RECD: 09/04/198 STATUS: MANPREET MEJIA DR: Serenity Hanson MD _ ORDERED: LEVEL 4 COMMENTS: [id number] FINAL DIAGNOSIS Skin, right mid forehead, excision: -- Scar, excised. -- No evidence of residual basal cell carcinoma. COMMENT: The previous lesion at this site ([id number]) has been completely excised. CLINICAL HISTORY See [facility] [id number] PRE-OPERATIVE DIAGNOSIS Basal cell carcinoma, suture lopez 12:00 medial apex margin GROSS DESCRIPTION The specimen is received in formalin labeled, Excision Basal Cell Carcinoma Right Mid Forehead, Suture Lopez 12:00 Medial [place] Margin, and consists of a 3.0 x [...] 1103 END OF REPORT DEPARTMENT OF PATHOLOGY, [address] [place] [address] Jeet Hall M.D. Director [facility] # [id number] Procedures Date Code Description Status 01/20/2020 59368 EKG Tracing & Interpretation Completed 01/19/2020 85965 Endoscopy Upper GI Biopsy Completed 01/11/2020 24972 ECHO Transthoracic, Real-Time 2D With Doppler And Color Completed Flow 01/11/2020 60395 ECHO Transthoracic, Real-Time 2D With Doppler And Color Completed Flow 12/21/2019 84967 EKG Tracing & Interpretation Completed 12/07/2019 95642 Inject/Drain Joint/Bursa Major W/O US Completed 12/15/2013 [id number] Colonoscopy Completed 10/21/2007 [id number] Colonoscopy Completed 02/18/2001 [id number] Colonoscopy Completed Medical Devices Description No Information Available Encounters Type Date Location Provider Dx Diagnosis Office Visit 01/14/2020 [facility] Gastroenterology Vanessaelisa Melgarbeth D50.9 Iron deficiency 1:10p Hunter, [employer] anemia, unspecified R60.0 Localized edema 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, unspecified Office Visit 12/31/2019 8:40a [facility] Internal Serenity R60.0 Localized edema Medicine - Mary Jo Martin M.D. M25.562 Pain in left knee Office Visit 12/25/2019 9:15a [facility] Genopanfilo Clemens, M25.562 Pain in left at [place] M.D. knee M25.462 Effusion, left knee M17.12 Unilateral primary osteoarthritis, left knee Office Visit 12/21/2019 [place] Oleg Piedra 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, 3:20p [facility] Kelsey Oquendo unspecified [facility] I10 Essential (primary) hypertension D64.9 Anemia, unspecified I49.3 Ventricular premature depolarization R60.0 Localized edema I82.402 Acute embolism and thombos unsp deep veins of l low extrem I45.89 Other specified conduction disorders R94.31 Abnormal electrocardiogram [ECG] [EKG] Office Visit 12/07/2019 9:00a [facility] Genopanfilo Clemens, M25.562 Pain in left at [place] M.D. knee M25.462 Effusion, left knee M17.12 Unilateral primary osteoarthritis, left knee M54.32 Sciatica, left side Assessments Date Code Description Provider 02/02/2020 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, unspecified Alexandrea Brush MD, [facility], [facility] 01/20/2020 D50.9 Iron deficiency anemia, [...] Iron deficiency anemia, unspecified Vanessa Hunter , [employer] 01/14/2020 R60.0 Localized edema Vanessa Hunter, [employer] 01/14/2020 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, unspecified Vanessa Hunter, NILDA 01/11/2020 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, unspecified Oleg Oquendo M.D. 01/11/2020 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, unspecified [facility] Schedule 12/31/2019 R60.0 Localized edema Serenity Martin M.D. 12/31/2019 M25.562 Pain in left knee Serenity Martin M.D. 12/25/2019 M25.562 Pain in left knee Geno lCemens M.D. 12/25/2019 M25.462 Effusion, left knee Geno [...] 3:45 pm - Julien Sheikh MD at [facility] Uhvtbptnvwsbqins13/16/2020 9:15 am - Geno Clemens M.D. at [facility] at Buktwh1602/08/2020 9:00 am - Serenity Martin M.D. at [facility] Internal Medicine - Ccmob02/02/2020 - Alexandrea Brush MD, [facility], NCOQAS52.9 Cardiomyopathy, unspecified Functional Status Description No Information Available Mental Status Description No Information Available Referrals Refer to Dr Reason for Referral Status Appt Date Julien Sheikh MD Scheduled 01/14/[address] [place] [phone]
--- OUTSIDE RECORDS SUMMARY | 2020-02-12 15:25 | XMS REPORT | Continuity of Care Document ---
:1930 External Reference #:[id number] Author Name Vanessa Hunter NP (transmitted by agent of provider Mayito Lozoya) Address [address] [place] [address] Care Team Providers Name Role Phone [facility] Care Team Information Electrostatic Painter [place] - Physical Therapist Serenity Martin MD - Internal Care Team Information Electrostatic Painter [phone] Medicine Oleg Oquendo MD - Cardiovascular Care Team Information Electrostatic Painter Disease Julien Sheikh MD - Gastroenterology Care Team Information Electrostatic Painter [phone] Problems Active Problems Provider Date Localized, primary osteoarthritis Geno Clemens M.D. Onset: [...] Use denies alcohol use Smoking Status Reviewed: 01/14/20 Patient has never smoked Exercise Type/Frequency Exercises sporadically Allergies, Adverse Reactions, Alerts Active Allergies Reaction Severity Comments Date Novocain 01/15/2014 Medications Active Medications SIG Qnty Indications Ordering Date Provider Aspir-Low 1 by mouth I82.402 Oleg Piedra 01/14/2020 81mg Tablets every day Kelsey Oquendo Lisinopril 1 by mouth 60tabs Oleg Piedra 01/14/2020 5mg Tablets every day Kelsey Oquendo Torsemide 1 by mouth once 30tabs Oleg Piedar 01/14/2020 10mg Tablets today as needed Kelsey Oquendo Compression Stockings thigh high, 1Pair R60.0 Serenity 12/31/2019 Misc 15-20 mm hg. Kelsey Martin for daily use Tramadol HCL 1-2 tab every 28tabs Geno Clemens, 12/25/2019 50mg Tablets 12 hours as M.DRenita needed for pain Feraheme feraheme 2doses D50.9 Oleg Piedra 12/23/2019 510mg/17ML Solution infusion 510 mg Kelsey Oquendo 2 doses total first infusion followed by a second infusion in a week Amoxicillin Take 4 tablets 20tabs Serenity 11/27/2019 [...] 5mg Tablets every day MD History Medications Eliquis 1 by mouth 60tabs I82.402 Oleg Piedra 12/21/2019 - 5mg Tablets twice a day Kelsey Oquendo 01/14/2020 Lisinopril 2 by mouth 360tabs Serenity Mario, 08/24/2019 - 10mg twice daily Kendrick.DRenita 01/13/2020 Tablets Medications Administered in Office Medication SIG Qnty Indications Ordering Provider Date Triamcinolone (Kenalog) Geno Clemens M.D. 12/07/2019 Injection Technetium TC 99M Golden Champagne, DO [facility] 04/20/2019 Tetrofosmin, Per Unit Dose Up To 40 Millicuries Injection Technetium TC 99M Golden Champagne, DO [facility] 04/20/2019 Tetrofosmin, Per Unit Dose Up [...] Clemens M.D. 04/27/2015 Injection Depomedrol 80MG RADHA Cralos 02/01/2015 Injection Depomedrol 80MG Willi Caba M.D. 08/05/2014 Injection Depomedrol 80MG Willi Caba M.D. 01/21/2014 Injection Depomedrol 80MG Willi Caba M.D. 11/19/2013 Injection Depomedrol 80MG Willi Caba M.D. 02/24/2013 Injection Immunizations CPT Code Status Date Vaccine Lot # [id number] Given 09/25/2019 Influenza Virus Vaccine, Quadrivalent, Split, Preservative Free 20027 Given 09/24/2018 Influenza Virus Vaccine, Quadrivalent, Split, Preservative Free 62405 Given 09/23/2017 Influenza Virus Vaccine, Quadrivalent, Split, [id number] Preservative Free 83334 Given 09/23/2017 Pneumococcal Conjugate Vaccine 13 Valent For [id number] Intramuscular Use Vital Signs Date Vital Result Comment 01/14/2020 1:20pm Height 69 inches 5'9" Weight 183.12 lb Heart Rate 74 /min BP Systolic 130 mmHg BP Diastolic 65 mmHg Respiratory Rate 16 /min O2 % BldC Oximetry 99 % BMI (Body Mass Index) 27.0 kg/m2 12/31/2019 8:25am Height 69 inches 5'9" Weight 190.00 lb Heart Rate 63 /min BP Systolic 125 mmHg BP Diastolic 60 mmHg O2 % BldC Oximetry 99 % BMI (Body Mass Index) 28.1 kg/m2 Results Test Acquired Date Facility Test Result H/L Range Note Laboratory test 01/14/2020 [facility] Ferritin <pending> finding [address] [place] [address] [phone] Xray 01/14/2020 [facility] Chest PA & <pending> [address] Lat 2 [address] [place], [place] [id number] [phone] CBC Auto Diff 12/23/2019 [facility] White Blood 5.5 Normal 3.5 -10.[address] Count 10^3/[place] [address] [phone] Red Blood Count 4.74 10^6/uL Normal 4.18-5.48 [...] % 0.0 Iron & Iron Binding 12/23/2019 [facility] Iron 33 g/dL Low 50-[address] [place] [address] [phone] Unsaturated Iron Binding < 205 g/dL Total Iron Binding Capacity 220 g/dL Low 250-450 Transferrin 157 mg/dL Low 203-362 % Iron Saturation 15 % Normal 15-55 Comp Metabolic 12/23/2019 [facility] Sodium 136 mmol/L Normal 135-[address] [place] [address] [phone] Potassium 4.0 mmol/L Normal 3.5-5.0 Chloride 102 [...] Egfr Non- 64.7 >60 Egfr 78.3 >60 1 Laboratory 12/23/2019 [facility] D Dimer 261 ng/mL High Less [address] Quantitative Than [address] [place] [address] [phone] Comp Metabolic 11/23/2019 [facility] Sodium 139 Normal 135- [address] mmol/[place] [address] [phone] Potassium 3.8 mmol/L Normal 3.5-5.0 Chloride 107 [...] Egfr Non- 53.2 >60 Egfr 64.3 >60 3 CBC Auto 11/23/2019 [facility] White Blood 4.2 10^3/uL Normal 3.5-10.[address] [place] [address] [phone] Red Blood Count 4.69 10^6/uL Normal 4.18-5.48 [...] Blood Cells % 0.0 Laboratory test 09/04/2019 [facility] Surgical SEE RESULT 4 , [address] [place] [address] [phone] Laboratory test 07/17/2019 [facility] Surgical SEE RESULT 6 , [address] [place] [address] [phone] 1 Because ethnic data is not always [...] 5 Kidney failure <15 (or dialysis) 2 Please note: The following may produce a false positive D Dimer test: - Rheumatoid factor greater than 60 IU/ml - Plasma hemoglobin greater than 0.05 gm/dl - Bilirubin greater than 50 mg/dl - Lipids greater than 1000 mg/dl - FDP greater than 20 ug/ml 3 Because ethnic data is not always [...] 5 Kidney failure <15 (or dialysis) 4 [id number] 5 SEE RESULT BELOW Name: BETO PEREZ : [address]: Oj Quintero MD Acct: [id number] Unit: [id number] AGE: 89 Location: [facility] Re09/04/19 SEX: M Status: REG REF SPEC: [id number] DOMINGO: 09/04/19 [facility] DR: Oj Quintero MD REQ: [id number] RECD: 09/04/19 STATUS: MANPREET MEJIA DR: Serenity Hanson MD _ ORDERED: LEVEL 4 COMMENTS: [id number] FINAL DIAGNOSIS Skin, right mid forehead, excision: -- Scar, excised. -- No evidence of residual basal cell carcinoma. COMMENT: The previous lesion at this site ([id number]) has been completely excised. CLINICAL HISTORY See [place] [id number] PRE-OPERATIVE DIAGNOSIS Basal cell carcinoma, suture lopez 12:00 medial apex margin GROSS DESCRIPTION The specimen is received in formalin labeled, Excision Basal Cell Carcinoma Right Mid Forehead, Suture Lopez 12:00 Medial [place] Margin, and consists of a 3.0 x [...] 1103 END OF REPORT DEPARTMENT OF PATHOLOGY, [address] [place] [address] Jeet Hall M.D. Director [facility] # [id number]:Morphology: pearly telangiectatic papule;DDX: Basal Cell Carcinoma; Location: right mid for 7 SEE RESULT BELOW Name: BETO PEREZ : [address]: Vanessa Hanson MD Acct: [id number] Unit: [id number] AGE: 89 Location: [facility] Re07/17/19 SEX: M Status: REG REF SPEC: [id number] DOMINGO: 07/17/19 [facility] DR: Vanessa Hanson MD REQ: [id number] RECD: 07/17/19 STATUS: MANPREET MEJIA DR: Serenity Martin MD _ ORDERED: LEVEL 4 COMMENTS: [id number] FINAL DIAGNOSIS Skin, right mid forehead, biopsy: -- Basal cell carcinoma, superficial and nodular type. -- Lesional cells extend to the biopsy base. PRE-OPERATIVE DIAGNOSIS Pearly telangiectatic papule, basal cell carcinoma GROSS DESCRIPTION The specimen is received in formalin labeled, Right Mid Forehead, and consists of a 0.7 by up to 0.7 cm calvin-white crescent shaped skin shave with a 0.4 x 0.3 cm white- pink focally eroded to scabrous area. The specimen is inked, serially sectioned and submitted entirely in one cassette. Signed by and Reported on: Alison Hathaway MD 07/20/19 0949 END OF REPORT DEPARTMENT OF PATHOLOGY, [address] [place] [address] Jeet Hall M.D. Director [facility] # [id number] Procedures Date Code Description Status 01/11/2020 41855 ECHO Transthoracic, Real-Time 2D With Doppler And Color Completed Flow 01/11/2020 46064 ECHO Transthoracic, Real-Time 2D With Doppler And Color Completed Flow 12/21/2019 34723 EKG Tracing & Interpretation Completed 12/07/201996624 Inject/Drain Joint/Bursa Major W/O US Completed 12/15/2013 [id number] Colonoscopy Completed 10/21/2007 [id number] Colonoscopy Completed Medical Devices Description No Information Available Encounters Type Date Location Provider Dx Diagnosis Office Visit 12/31/2019 [facility] Internal Serenity Cotton, R60.0 Localized [facility] M25.562 Pain in left knee Office Visit 12/25/2019 9:15a [facility] Genopanfilo Clemens, M25.562 Pain in left at [place] M.D. knee M25.462 Effusion, left knee M17.12 Unilateral primary osteoarthritis, left knee Office Visit 12/21/2019 [place] Oleg Piedra 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, 3:20p Cardiology Of Kelsey Oquendo unspecified [facility] I10 Essential (primary) hypertension D64.9 Anemia, unspecified I49.3 Ventricular premature depolarization R60.0 Localized edema I82.402 Acute embolism and thombos unsp deep veins of l low extrem I45.89 Other specified conduction disorders R94.31 Abnormal electrocardiogram [ECG] [EKG] Office Visit 12/07/2019 9:00a [facility] Geno Clemens, M25.562 Pain in left at [place] M.D. 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 01/11/2020 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, unspecified [place] ECHO Schedule 12/31/2019 R60.0 Localized edema Serenity Martin M.D. 12/31/2019 M25.562 Pain in left knee Serenity Martin M.D. 12/25/2019 M25.562 Pain in left knee Genojeovany Clemens, M.DRenita 12/25/2019 M25.462 Effusion, left knee Isac MacielDRenita 12/25/2019 M17.12 Unilateral primary osteoarthritis, left GenoIsac OrtizDRenita knee 12/21/2019 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, unspecified Oleg Oquendo [...] M.D. 12/07/2019 M25.562 Pain in left knee GenoKendrick Ortiz.DRenita 12/07/2019 M25.462 Effusion, left knee Isac MacielDRenita 12/07/2019 M17.12 Unilateral primary osteoarthritis, left Genojeovany Clemens M.D. knee 12/07/2019 M54.32 Sciatica, left side Genojeovany Clemens M.D. 11/27/2019 Z00.00 Encounter for general adult medical Serenity Martin M.D. examination without abnormal findings 11/27/2019 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, unspecified Serenity Martin M.D. 11/27/2019 I10 Essential (primary) hypertension Serenity Martin M.D. 11/27/2019 D64.9 Anemia, unspecified Serenity Martin M.D. 07/16/2019 T63.441D Toxic effect of venom of beesSerenity M.D. accidental (unintentional), subsequent encounter Plan of Treatment Future Appointment(s):01/28/2020 3:15 pm - Julien Sheikh MD at [facility] Zrsguzwryqctdofr25/18/2020 2:40 pm - Oleg Oquendo M.D. at [facility] Fsibteewqb06/24/2020 9:30 am - Geno Clemens M.D. at [facility] at Szrihs4202/17/2020 11:20 am - Oleg Oquendo M.D. at [facility] Tkbrqcgiyn89/09/ 2020 9:00 am - Serenity Martin M.D. at [facility] Internal Medicine - [facility] Functional Status Description No Information Available Mental Status Description No Information Available Referrals Refer to Dr Reason for Referral Status Appt Date Julien Sheikh MD Scheduled 01/14/[address] [place] [phone]
--- OUTSIDE RECORDS SUMMARY | 2020-02-12 15:25 | XMS REPORT | Continuity of Care Document ---
:1930 External Reference #:[id number] Author Name Serenity Martin M.D. (transmitted by agent of provider Beverley Spears) Address [address], [place] [address] Care Team Providers Name Role Phone [facility] Care Team Information Kettle [employer]er [place] - Physical Therapist Serenity Martin MD - Internal Care Team Information Kettle Loader [phone] Medicine Oleg Oquendo MD - Cardiovascular Care Team Information Kettle Loader [phone] Julien Sheikh MD - Gastroenterology Care Team Information Kettle Loader Problems Active Problems Provider Date Edema of [...] Injection Technetium TC 99M Golden Champagne, DO [facility] 04/20/2019 Tetrofosmin, Per Unit Dose Up To 40 Millicuries Injection Technetium TC 99M Golden Champagne, DO [facility] 04/20/2019 Tetrofosmin, Per Unit Dose [...] CPT Code Status Date Vaccine Lot # [id number] Given 09/25/2019 Influenza Virus Vaccine, Quadrivalent, Split, Preservative Free [id number] Given 09/24/2018 Influenza Virus Vaccine, Quadrivalent, Split, Preservative Free 43686 Given 09/23/2017 Influenza Virus Vaccine, Quadrivalent, Split, [id number] Preservative Free 84608 Given 09/23/2017 Pneumococcal Conjugate Vaccine 13 Valent For [id number] Intramuscular Use Vital Signs Date Vital Result [...] Test Result H/L Range Note Laboratory test 02/08/2020 [facility] Influenza A & <pending> finding [address] [place] [address] [phone] Basic Metabolic 01/28/2020 [facility] Sodium 133 mmol/L Low 135-[address] [place] [address] [phone] Chloride 101 mmol/L Normal 101-111 Co2 Carbon Dioxide 28 mmol/L Normal 22-32 Glucose 81 mg/dL Normal 70-100 Blood Urea Nitrogen 17 mg/dL Normal 6-24 Creatinine 1.03 mg/dL Normal 0.67-1.17 BUN/Creatinine Ratio 16.5 Normal 8-20 Calcium 8.2 mg/dL Low 8.6-10.3 Egfr Non- 68.3 >60 Egfr 82.7 >60 1 Potassium 4.2 mmol/L Normal 3.5-5.0 Anion Gap 4 mmol/L Normal 2-11 Cath Panel 01/25/2020 [facility] Partial 28.1 seconds Normal 26.0-38.[address] [place] [address] [phone] CBC Auto 01/25/2020 [facility] White Blood 4.3 10^3/uL Normal 3.5-10.[address] [place] [address] [phone] Red Blood Count 5.07 10^6/uL Normal 4.18-5.48 [...] Red Blood Cells % 0.0 Inr/Protime 01/25/2020 [facility] Inr 0.99 Normal 0.82-1.[address] [place] [address] [phone] Basic Metabolic 01/25/2020 [facility] Sodium 134 mmol/L Low 135-[address] [place] [address] [phone] Potassium 4.0 mmol/L Normal 3.5-5.0 Chloride 101 mmol/L Normal 101-111 Co2 Carbon Dioxide 27 mmol/L Normal 22-32 Anion Gap 6 mmol/L Normal 2-11 Glucose 104 mg/dL High 70-100 Blood Urea Nitrogen 26 mg/dL High 6-24 Creatinine 1.21 mg/dL High 0.67-1.17 BUN/Creatinine Ratio 21.5 High 8-20 Calcium 8.0 mg/dL Low 8.6-10.3 Egfr Non- 56.7 >60 Egfr 68.6 >60 3 Comp Metabolic 01/19/2020 [facility] Sodium 135 mmol/L Normal 135-[address] [place] [address] [phone] Potassium 3.9 mmol/L Normal 3.5-5.0 Chloride 101 [...] >60 4 Iron & Iron Binding 01/19/2020 [facility] Iron 34 g/dL Low 50-[address] [place] [address] [phone] Unsaturated Iron Binding < 161 g/dL Total Iron Binding Capacity 176 g/dL Low 250-450 Transferrin 126 mg/dL Low 203-362 % Iron Saturation 19 % Normal 15-55 Laboratory test 01/19/2020 [facility] Erythropoietin 5.9 2.6 - [address] mIU/mL 18.5 [place] [address] [phone] Protein 01/19/2020 [facility] Total 5.2 g/dL Abnormal 6.3 - Electrophoresis [address] Protein(Pep) 7.9 [place] [address] [phone] Albumin 2.6 g/dL Abnormal 3.4-4.7 Alpha-1 Globulin 0.2 g/dL 0.1-0.3 Alpha-2 Globulin 0.9 g/dL 0.6-1.0 Beta Globulin 0.7 g/dL 0.7-1.2 Gamma Globulin 0.7 g/dL 0.6-1.6 Albumin/Globulin Ratio 1.01 Impression See Comment 6 Stool Occult 01/19/2020 [facility] Stool Occult SEE RESULT 7 Blood Di[address] Blood, [place] [address] [phone] Laboratory test 01/19/2020 [facility] Clotest SEE RESULT [address] [place] [address] [phone] Laboratory test 01/19/2020 [facility] B-Type 361 pg/mL High <= [address] Natriuretic 0 [place] [address] Peptide BNP [phone] CBC No Diff 01/19/2020 [facility] White Blood 5.3 10^3/uL Normal 3.5- [address] Count 10.8 [place] [address] [phone] Red Blood Count 4.93 10^6/uL Normal 4.18-5.48 Hemoglobin 12.5 g/dL Low 14.0-18.0 Hematocrit 38 % Low 42-52 Mean Corpuscular Volume 78 fL Low 80-94 Mean Corpuscular Hemoglobin 25 pg Low 27-31 Mean Corpuscular HGB Conc 33 g/dL Normal 31-36 Red Cell Distribution Width 15 % Normal 10-15 Platelet Count 157 10^3/uL Normal 150-450 Mean Platelet Volume 9.0 fL Normal 7.4-10.4 Laboratory 01/14/2020 [facility] Ferritin 708.4 High 24-336 test finding [address] ng/[place] [address] [phone] Xray 01/14/2020 [facility] Chest PA & Lat 2 <pending [address] VWS > [place] [address] [phone] Laboratory 12/23/2019 [facility] D Dimer 261 High Less Than 9 test finding 101 Quantitative ng/mL 230 [place] [address] [phone] Comp Metabolic 12/23/2019 [facility] Sodium 136 Normal 135- [address] mmol/[place] [address] [phone] Potassium 4.0 mmol/L Normal 3.5-5.0 Chloride 102 [...] >60 10 Iron & Iron Binding 12/23/2019 [facility] Iron 33 g/dL Low 50-[address] [place] [address] [phone] Unsaturated Iron Binding < 205 g/dL Total Iron Binding Capacity 220 g/dL Low 250-450 Transferrin 157 mg/dL Low 203-362 % Iron Saturation 15 % Normal 15-55 CBC Auto 12/23/2019 [facility] White Blood 5.5 10^3/uL Normal 3.5-10.[address] [place] [address] [phone] Red Blood Count 4.74 10^6/uL Normal 4.18-5.48 [...] Blood Cells % 0.0 CBC Auto 11/23/2019 [facility] White Blood 4.2 10^3/uL Normal 3.5-10.[address] [place] [address] [phone] Red Blood Count 4.69 10^6/uL Normal 4.18-5.48 [...] Blood Cells % 0.0 Comp Metabolic 11/23/2019 [facility] Sodium 139 mmol/L Normal 135-[address] [place], [place] [phone] Potassium 3.8 mmol/L Normal 3.5-5.0 Chloride 107 [...] Egfr 64.3 >60 11 Laboratory test 09/04/2019 [facility] Surgical SEE RESULT 12, [address] [place] [address] [phone] 1 Because ethnic data is not always [...] <15 (or dialysis) 5 Test Performed by: [place] [address] Dedicated Truck Driver: Norberto Cutler M.D. Ph.D.; CLIA# [id number] 6 RESULT: No apparent monoclonal protein on serum electrophoresis. Test Performed by: [place] [address] Dedicated Truck Driver: Norberto Cutler M.D. Ph.D.; CLIA# [id number] 7 SEE RESULT BELOW Name: BETO PEREZ : [address]: Julien Sheikh MD Acct: [id number] Unit: [id number] AGE: 89 Location: ENDO Re01/19/20 SEX: M Status: REG REF SPEC: [id number] DOMING[place]: 01/19/20-[address]: Julien Sheikh MD REQ: [id number] RECD: 01/19/20-1520 STATUS: TUNDE MEJIA DR: Serenity Martin MD _ SOURCE: STOOL SPDESC: ORDERED: Occult Bl, Diag Procedure Result Reported Site Stool Occult Blood (1) Final 01/19/20- 1535 ML Stool Occult Blood Negative Collection Date (1) 01/19/20 * ML - Main Lab . END OF REPORT DEPARTMENT OF PATHOLOGY, [address] [place] [address] Jeet Hall M.D. Director JOVANY # [id number] SEE RESULT BELOW Name: BETO PEREZ : [address]: Julien Sheikh MD Acct: [id number] Unit: [id number] AGE: 89 Location: ENDO Re01/19/20 SEX: M Status: REG REF SPEC: [id number] [place]: 01/19/20-1306 [facility] DR: Julien Sheikh MD REQ: [id number] RECD: 01/19/20 STATUS: TUNDE MEJIA DR: Serenity Martin MD _ SOURCE: GAS ANTRUM SPDESC: ORDERED: Clotest Procedure Result Reported Site Clotest Final 01/20/20- 0943 ML Clotest Negative * ML - Main Lab . END OF REPORT DEPARTMENT OF PATHOLOGY, [address] [place] [address] Jeet Hall M.D. Director [facility] # [id number] Please note: The following may produce [...] 5 Kidney failure <15 (or dialysis) 12 [id number] SEE RESULT BELOW Name: BETO PEREZ : [address]: Oj Quintero MD Acct: [id number] Unit: [id number] AGE: 89 Location: [facility] Re09/04/19 SEX: M Status: REG REF SPEC: [id number] [place]: 09/04/19 [facility] DR: Oj Quintero MD REQ: [id number] RECD: 09/04/19 STATUS: MANPREET MEJIA DR: Serenity Hanson MD _ ORDERED: LEVEL 4 COMMENTS: [id number] FINAL DIAGNOSIS Skin, right mid forehead, excision: -- Scar, excised. -- No evidence of residual basal cell carcinoma. COMMENT: The previous lesion at this site ([id number]) has been completely excised. CLINICAL HISTORY See [facility] [id number] PRE-OPERATIVE DIAGNOSIS Basal cell carcinoma, suture lopez 12:00 medial apex margin GROSS DESCRIPTION The specimen is received in formalin labeled, Excision Basal Cell Carcinoma Right Mid Forehead, Suture Lopez 12:00 Medial [place] Margin, and consists of a 3.0 x [...] 1103 END OF REPORT DEPARTMENT OF PATHOLOGY, [address] [place] [address] Jeet Hall M.D. Director [facility] # [id number] Procedures Date Code Description Status 01/20/2020 19375 EKG Tracing & Interpretation Completed 01/19/2020 38013 Endoscopy Upper GI Biopsy Completed 01/11/2020 89448 ECHO Transthoracic, Real-Time 2D With Doppler And Color Completed Flow 01/11/2020 19301 ECHO Transthoracic, Real-Time 2D With Doppler And Color Completed Flow 12/21/2019 01803 EKG Tracing & Interpretation Completed 12/07/2019 91016 Inject/Drain Joint/Bursa Major W/O US Completed 12/15/2013 58269324 Colonoscopy Completed 10/21/2007 53332825 Colonoscopy Completed 02/18/2001 34948390 Colonoscopy Completed Medical Devices Description No Information Available Encounters Type Date Location Provider Dx Diagnosis Office Visit 02/02/2020 [place] [facility] Marcis T. 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, 3:00p Of Buckle Frame Shaper AT [facility] MD Trudi, unspecified FACC, FSCAI Office Visit 01/20/2020 [facility] Oleg Piedra D50.9 Iron deficiency 10:30a Kelsey Oquendo anemia, unspecified R60.0 Localized edema 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, unspecified I10 Essential (primary) hypertension I50.22 Chronic systolic (congestive) heart failure I49.5 Sick sinus syndrome I49.3 Ventricular premature depolarization I45.19 Other right bundle-branch block I45.2 Bifascicular block R94.31 Abnormal electrocardiogram [ECG] [EKG] Office Visit 01/14/2020 [facility] Gastroenterology Vanessa D50.9 Iron deficiency 1:10p Elsa Dumont NP unspecified R60.0 Localized edema 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, unspecified Office Visit 12/31/2019 8:40a [facility] Internal Serenity R60.0 Localized edema [facility] Martin M.D. M25.562 Pain in left knee Office Visit 12/25/2019 9:15a [facility] Geno Clemens, M25.562 Pain in left at [facility].D. knee M25.462 Effusion, left knee M17.12 Unilateral primary osteoarthritis, left knee Office Visit 12/21/2019 [place] Oleg Piedra 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, 3:20p Cardiology Of Kelsey Oquendo unspecified [facility] I10 Essential (primary) hypertension D64.9 Anemia, unspecified I49.3 Ventricular premature depolarization R60.0 Localized edema I82.402 Acute embolism and thombos unsp deep veins of l low extrem I45.89 Other specified conduction disorders R94.31 Abnormal electrocardiogram [ECG] [EKG] Office Visit 12/07/2019 9:00a [facility] Geno Clemens M25.562 Pain in left at [place] M.D. knee M25.462 Effusion, left knee M17.12 Unilateral primary osteoarthritis, left knee M54.32 Sciatica, left side Assessments Date Code Description Provider 02/08/2020 M79.10 Myalgia, unspecified site Serenity Martin M.D. 02/08/2020 J06.9 Acute upper respiratory infection, Serenity Martin M.D. unspecified 02/08/2020 R19.7 Diarrhea, unspecified Serenity Martin M.D. 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 01/11/2020 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, unspecified Britt ECHO Schedule 12/31/2019 R60.0 Localized edema Serenity [...] examination without abnormal findings 11/27/2019 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, seified Serenity Martin M.D. 11/27/2019 I10 Essential (primary) hypertension Serenity Martin M.D. 11/27/2019 D64.9 Anemia, seified Serenity Martin M.D. Plan of Treatment Future Appointment(s):02/15/2020 9:15 am - Geno Clemens M.D. at [facility] at [facility]1702/08/2020 - Serenity Martin M.D.M79.10 Myalgia, unspecified siteComments:Please do blood tests sujetL31.9 Acute upper respiratory infection, foghmmxqdrzV55.7 Diarrhea, unspecifiedComments:It sounds like the diarrhea is getting betterHold off on stool test for Functional Status Description No Information Available Mental Status Description No Information Available Referrals Refer to Reason for Referral Status Appt Date Julien Sheikh MD Scheduled 01/14/2020 [address] [place] [phone]
--- OUTSIDE RECORDS SUMMARY | 2020-02-12 15:25 | XMS REPORT | Continuity of Care Document ---
:1930 External Reference #:[id number] Author Name Alexandrea Brush MD, [facility], [facility] (transmitted by agent of provider Alison Mendoza) Address [address] [address] Care Team Providers Name Role Phone [facility] Therapy Care Team Information Fuel Attendant [place] - Physical Therapist Serenity Martin MD - Internal Care Team Information Fuel Attendant Medicine Oleg Oquendo MD - Cardiovascular Care Team Information Fuel Attendant Disease Julien Sheikh MD - Gastroenterology Care Team Information Fuel Attendant [phone] Problems Active Problems Provider Date Edema of [...] I82.402 Oleg Piedra 12/21/2019 - 5mg a jyoti Oquendo M.D. 01/14/2020 Tablets Lisinopril 2 by mouth twice 360tabs Serenity Martin, 08/24/2019 - 10mg daily Kelsey 01/13/2020 Tablets Medications Administered in Office Medication SIG Qnty Indications Ordering Provider Date Triamcinolone (Kenalog) Geno Clemens M.D. 12/07/2019 Injection Technetium TC 99M Golden Champagne, DO [facility] 04/20/2019 Tetrofosmin, Per Unit Dose Up To 40 Millicuries Injection Technetium TC 99M Golden Champagne, DO [facility] 04/20/2019 Tetrofosmin, Per Unit Dose Up To [...] Arenas M.D. 11/02/2016 Injection Technetium TC 99M oJhn Arenas M.D. 11/02/2016 Tetrofosmin, Per Unit Dose [...] CPT Code Status Date Vaccine Lot # [id number] Given 09/25/2019 Influenza Virus Vaccine, Quadrivalent, Split, Preservative Free 69971 Given 09/24/2018 Influenza Virus Vaccine, Quadrivalent, Split, Preservative Free 63708 Given 09/23/2017 Influenza Virus Vaccine, Quadrivalent, Split, [id number] Preservative Free 01460 Given 09/23/2017 Pneumococcal Conjugate Vaccine 13 Valent For [id number] Intramuscular Use Vital Signs Date Vital Result [...] Result H/L Range Note Basic Metabolic 01/28/2020 [facility] Sodium 133 mmol/L Low 135-[address] [place] [address] [phone] Chloride 101 mmol/L Normal 101-111 Co2 Carbon Dioxide 28 mmol/L Normal 22-32 Glucose 81 mg/dL Normal 70-100 Blood Urea Nitrogen 17 mg/dL Normal 6-24 Creatinine 1.03 mg/dL Normal 0.67-1.17 BUN/Creatinine Ratio 16.5 Normal 8-20 Calcium 8.2 mg/dL Low 8.6-10.3 Egfr Non- 68.3 >60 Egfr 82.7 >60 1 Potassium 4.2 mmol/L Normal 3.5-5.0 Anion Gap 4 mmol/L Normal 2-11 Cath Panel 01/25/2020 [facility] Partial 28.1 seconds Normal 26.0-38.[address] [place] [address] [phone] CBC Auto 01/25/2020 [facility] White Blood 4.3 10^3/uL Normal 3.5-10.[address] [place] [address] [phone] Red Blood Count 5.07 10^6/uL Normal 4.18-5.48 [...] Red Blood Cells % 0.0 Inr/Protime 01/25/2020 [facility] Inr 0.99 Normal 0.82-1.[address] [place] [address] [phone] Basic Metabolic 01/25/2020 [facility] Sodium 134 mmol/L Low 135-[address] [place] [address] [phone] Potassium 4.0 mmol/L Normal 3.5-5.0 Chloride 101 mmol/L Normal 101-111 Co2 Carbon Dioxide 27 mmol/L Normal 22-32 Anion Gap 6 mmol/L Normal 2-11 Glucose 104 mg/dL High 70-100 Blood Urea Nitrogen 26 mg/dL High 6-24 Creatinine 1.21 mg/dL High 0.67-1.17 BUN/Creatinine Ratio 21.5 High 8-20 Calcium 8.0 mg/dL Low 8.6-10.3 Egfr Non- 56.7 >60 Egfr 68.6 >60 3 Comp Metabolic 01/19/2020 [facility] Sodium 135 mmol/L Normal 135-[address] [place] [address] [phone] Potassium 3.9 mmol/L Normal 3.5-5.0 Chloride 101 [...] >60 4 Iron & Iron Binding 01/19/2020 [facility] Iron 34 g/dL Low 50-[address] [place] [address] [phone] Unsaturated Iron Binding < 161 g/dL Total Iron Binding Capacity 176 g/dL Low 250-450 Transferrin 126 mg/dL Low 203-362 % Iron Saturation 19 % Normal 15-55 Laboratory test 01/19/2020 [facility] Erythropoietin 5.9 2.6 - [address] mIU/mL 18.5 [place] [address] [phone] Protein 01/19/2020 [facility] Total 5.2 g/dL Abnormal 6.3 - Electrophoresis [address] Protein(Pep) 7.9 [place] [address] [phone] Albumin 2.6 g/dL Abnormal 3.4-4.7 Alpha-1 Globulin 0.2 g/dL 0.1-0.3 Alpha-2 Globulin 0.9 g/dL 0.6-1.0 Beta Globulin 0.7 g/dL 0.7-1.2 Gamma Globulin 0.7 g/dL 0.6-1.6 Albumin/Globulin Ratio 1.01 Impression See Comment 6 Stool Occult 01/19/2020 [facility] Stool Occult SEE RESULT 7 Blood Diag [address] Blood, [place] [address] [phone] Laboratory test 01/19/2020 [facility] Clotest SEE RESULT [address] [place] [address] [phone] Laboratory test 01/19/2020 [facility] B-Type 361 pg/mL High <= [address] Natriuretic 0 [place] [address] Peptide BNP [phone] CBC No Diff 01/19/2020 [facility] White Blood 5.3 10^3/uL Normal 3.5- [address] Count 10.8 [place] [address] [phone] Red Blood Count 4.93 10^6/uL Normal 4.18-5.48 Hemoglobin 12.5 g/dL Low 14.0-18.0 Hematocrit 38 % Low 42-52 Mean Corpuscular Volume 78 fL Low 80-94 Mean Corpuscular Hemoglobin 25 pg Low 27-31 Mean Corpuscular HGB Conc 33 g/dL Normal 31-36 Red Cell Distribution Width 15 % Normal 10-15 Platelet Count 157 10^3/uL Normal 150-450 Mean Platelet Volume 9.0 fL Normal 7.4-10.4 Laboratory 01/14/2020 [facility] Ferritin 708.4 High 24-336 test finding [address] ng/[place] [address] [phone] Xray 01/14/2020 [facility] Chest PA & Lat 2 <pending [address] VWS > [place], [place] [address] [phone] Laboratory 12/23/2019 [facility] D Dimer 261 High Less Than 9 test finding [address] Quantitative ng/mL [address] [place] [address] [phone] Comp Metabolic 12/23/2019 [facility] Sodium 136 Normal 135- [address] mmol/[place] [address] [phone] Potassium 4.0 mmol/L Normal 3.5-5.0 Chloride 102 [...] >60 10 Iron & Iron Binding 12/23/2019 [facility] Iron 33 g/dL Low 50-[address] [place] [address] [phone] Unsaturated Iron Binding < 205 g/dL Total Iron Binding Capacity 220 g/dL Low 250-450 Transferrin 157 mg/dL Low 203-362 % Iron Saturation 15 % Normal 15-55 CBC Auto 12/23/2019 [facility] White Blood 5.5 10^3/uL Normal 3.5-10.[address] [place] [address] [phone] Red Blood Count 4.74 10^6/uL Normal 4.18-5.48 [...] Blood Cells % 0.0 CBC Auto 11/23/2019 [facility] White Blood 4.2 10^3/uL Normal 3.5-10.[address] [place] [address] [phone] Red Blood Count 4.69 10^6/uL Normal 4.18-5.48 [...] Blood Cells % 0.0 Comp Metabolic 11/23/2019 [facility] Sodium 139 mmol/L Normal 135-[address] [place], [place] [address] [phone] Potassium 3.8 mmol/L Normal 3.5-5.0 Chloride 107 [...] Egfr 64.3 >60 11 Laboratory test 09/04/2019 [facility] Surgical SEE RESULT 12, [address] [place] [address] [phone] 1 Because ethnic data is not always [...] <15 (or dialysis) 5 Test Performed by: [place] [address] Racehorse Trainer: Norberto Cutler M.D. Ph.D.; CLIA# [id number] 6 RESULT: No apparent monoclonal protein on serum electrophoresis. Test Performed by: [place] [address] Racehorse Trainer: Norberto Cutler M.D. Ph.D.; CLIA# [id number] 7 SEE RESULT BELOW Name: BETO PEREZ : [address]: Julien Sheikh MD Acct: [id number] Unit: [id number] AGE: 89 Location: ENDO Re01/19/20 SEX: M Status: REG REF SPEC: [id number] DOMINGO: 01/19/20-[address]: Julien Sheikh MD REQ: [id number] RECD: 01/19/20 STATUS: TUNDE MEJIA DR: Serenity Martin MD _ SOURCE: STOOL SPDESC: ORDERED: Occult Bl, Diag Procedure Result Reported Site Stool Occult Blood (1) Final 01/19/20- 1535 ML Stool Occult Blood Negative Collection Date (1) 01/19/20 * - [facility] . END OF REPORT DEPARTMENT OF PATHOLOGY, [address] [place] [address] Jeet Hall M.D. Director [facility] # [id number] SEE RESULT BELOW Name: BETO PEREZ : [address]: Julien Sheikh MD Acct: [id number] Unit: [id number] AGE: 89 Location: ENDO Re01/19/20 SEX: M Status: REG REF SPEC: [id number] DOMINGO: 01/19/20-[address]: Julien Sheikh MD REQ: [id number] RECD: 01/19/20-1518 STATUS: TUNDE MEJIA DR: Serenity Martin MD _ SOURCE: GAS ANTRUM SPDESC: ORDERED: Clotest Procedure Result Reported Site Clotest Final 01/20/20- 0943 ML Clotest Negative * ML - Main Lab . END OF REPORT DEPARTMENT OF PATHOLOGY, [address] [place] [address] Jeet Hall M.D. Director [facility] # [id number] 9 Please note: The following may produce [...] 5 Kidney failure <15 (or dialysis) 12 [id number] SEE RESULT BELOW Name: BETO PEREZ : [address]: Oj Quintero MD Acct: [id number] Unit: [id number] AGE: 89 Location: [facility] Re09/04/19 SEX: M Status: REG REF SPEC: [id number] DOMINGO: 09/04/19 [facility] DR: Oj Quintero MD REQ: [id number] RECD: 09/04/193 STATUS: MANPREET MEJIA DR: Serenity Hanson MD _ ORDERED: LEVEL 4 COMMENTS: [id number] FINAL DIAGNOSIS Skin, right mid forehead, excision: -- Scar, excised. -- No evidence of residual basal cell carcinoma. COMMENT: The previous lesion at this site ([id number]) has been completely excised. CLINICAL HISTORY [place] [facility] [id number] PRE-OPERATIVE DIAGNOSIS Basal cell carcinoma, suture lopez 12:00 medial apex margin GROSS DESCRIPTION The specimen is received in formalin labeled, Excision Basal Cell Carcinoma Right Mid Forehead, Suture Lopez 12:00 Medial Fletcher Margin, and consists of a 3.0 x [...] 1103 END OF REPORT DEPARTMENT OF PATHOLOGY, [address] [place] [address] Jeet Hall M.D. Director [facility] # [id number] Procedures Date Code Description Status 01/20/2020 95915 EKG Tracing & Interpretation Completed 01/19/2020 31538 Endoscopy Upper GI Biopsy Completed 01/11/2020 04253 ECHO Transthoracic, Real-Time 2D With Doppler And Color Completed Flow 01/11/2020 46524 ECHO Transthoracic, Real-Time 2D With Doppler And Color Completed Flow 12/21/2019 58500 EKG Tracing & Interpretation Completed 12/07/2019 14243 Inject/Drain Joint/Bursa Major W/O US Completed 12/15/2013 53974017 Colonoscopy Completed 10/21/2007 10397561 Colonoscopy Completed 02/18/2001 [id number] Colonoscopy Completed Medical Devices Description No Information Available Encounters Type Date Location Provider Dx Diagnosis Office Visit 02/02/2020 [facility] Alexandrea Blake 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, 3:00p Of Equalizing Saw Operator [place] [facility] [place] Trudi, unspecified [facility]AC, [facility] Office Visit 01/20/2020 [facility] Oleg Piedra D50.9 Iron deficiency 10:30a Kelsey Oquendo anemia, unspecified R60.0 Localized edema 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, unspecified I10 Essential (primary) hypertension I50.22 Chronic systolic (congestive) heart failure I49.5 Sick sinus syndrome I49.3 Ventricular premature depolarization I45.19 Other right bundle-branch block I45.2 Bifascicular block R94.31 Abnormal electrocardiogram [ECG] [EKG] Office Visit 01/14/2020 [facility] Gastroenterology Vanessa D50.9 Iron deficiency 1:10p Alison anemia, Hunter, RN CARDIAC unspecified R60.0 Localized edema 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, unspecified Office Visit 12/31/2019 8:40a [facility] Internal Serenity R60.0 Localized edema Medicine - Mary Jo Martin M.D. M25.562 Pain in left knee Office Visit 12/25/2019 9:15a [facility] Geno Clemens, M25.562 [facility].462 Effusion, left knee M17.12 Unilateral primary osteoarthritis, left knee Office Visit 12/21/2019 [place] Oleg Piedra 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, 3:20p Cardiology Of Kelsey Oquendo unspecified [facility] I10 Essential (primary) hypertension D64.9 Anemia, unspecified I49.3 Ventricular premature depolarization R60.0 Localized edema I82.402 Acute embolism and thombos unsp deep veins of l low extrem I45.89 Other specified conduction disorders R94.31 Abnormal electrocardiogram [ECG] [EKG] Office Visit 12/07/2019 9:00a [facility] Geno Clemens M25.562 Pain in left at [place] M.D. knee M25.462 Effusion, left knee M17.12 Unilateral primary osteoarthritis, left knee M54.32 Sciatica, left side Assessments Date Code Description Provider 02/02/2020 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, unspecified Alexandrea Brush MD, FACC, [facility] 01/20/2020 D50.9 Iron deficiency anemia, unspecified Oleg [...] , NILDA 01/14/2020 R60.0 Localized edema Vanessa Hunter, NILDA 01/14/2020 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, unspecified Vanessa Hunter, NILDA 01/11/2020 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, unspecified Oleg Oquendo M.D. 01/11/2020 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, unspecified [place] [facility] Schedule 12/31/2019 R60.0 Localized edema Serenity Maritn M.D. 12/31/2019 M25.562 Pain in left knee Serenity Martin M.D. 12/25/2019 M25.562 Pain in left knee Geno Clemens M.D. 12/25/2019 M25.462 Effusion, left knee Geno Sarath, M.D. 12/25/2019 M17.12 Unilateral primary osteoarthritis, Geno [...] 3:45 pm - Julien Sheikh MD at [facility] Dozlylmwdmjsmpuq92/16/2020 9:15 am - Geno Clemens M.D. at [facility] at Scjbke1802/08/2020 9:00 am - Serenity Martin M.D. at [facility] Internal Medicine - Ccmob02/02/2020 - Alexandrea Brush MD, [facility], HMRPIJ96.9 Cardiomyopathy, unspecifiedFollow up:Dr Oquendo as scheduled Functional Status Description No Information Available Mental Status Description No Information Available Referrals Refer to Reason for Referral Status Appt Date Julien Sheikh MD Scheduled 01/14/2020 [address] [place] [address] [phone]
--- OUTSIDE RECORDS SUMMARY | 2020-02-12 15:25 | XMS REPORT | Continuity of Care Document ---
:1930 External Reference #:[id number] Author Name Geno Clemens M.D. (transmitted by agent of provider Lashay Katz) Address [address] [facility] [place] [address] Care Team Providers Name Role Phone Glenda Physical Therapy Care Team Information [employer] [employer] [facility] [place] - Physical Therapist Serenity Martin MD - Internal Care Team Information [place] [phone] Medicine Oleg Oquendo MD - Cardiovascular Care Team Information [employer] Disease Problems Active Problems Provider Date Localized, primary osteoarthritis Geno Clemens M.D. 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 Onset: 11/27/2019 Social History Type Date Description Comments Sex Unknown Tobacco Use Start: Unknown Patient has never smoked Recreational Drug Use Denies Drug Use Recreational Drug Use denies alcohol use Smoking Status Reviewed: 12/25/19 Patient has never smoked Exercise Type/Frequency Exercises sporadically Allergies, Adverse Reactions, Alerts Active Allergies Reaction Severity Comments Date Novocain 01/15/2014 Medications Active Medications SIG Qnty Indications Ordering Date Provider Tramadol HCL 1-2 tab every 28tabs Geno Clemens, 12/25/2019 50mg Tablets 12 hours as M.D. needed for pain Feraheme feraheme 2doses D50.9 Oleg Piedra 12/23/2019 510mg/17ML Solution infusion 510 mg Kelsey Oquendo 2 doses total first infusion followed by a second infusion in a week Eliquis 1 by mouth 60tabs I82.402 Oleg Renita 12/21/2019 5mg Tablets twice a day Kelsey Oquendo Amoxicillin Take 4 tablets 20tabs Serenity 11/27/2019 500mg Tablets 1 hour prior to Kelsey Martin the procedure Lisinopril 2 by mouth 90tabs Oleg Piedra 08/24/2019 10mg Tablets twice daily Kelsey Oquendo Doxazosin Mesylate 1 by mouth 90tabs Serenity 01/23/2019 4mg Tablets daily at night Kelsey Martin Metoprolol Succinate ER 1/2 by mouth 90tabs Serenity 10/17/2016 25mg every day Kelsey Martin Tablets ER 24HR Hydrochlorothiazide Take 1 Capsule 90caps Serenity 12.5mg Daily Kelsey Martin Capsules Finasteride 1 by mouth Esteban Gilliland, 5mg Tablets every day Medications Administered in Office Medication SIG Qnty Indications Ordering Provider Date Triamcinolone (Kenalog) Geno Clemens M.D. 12/07/2019 Injection Technetium TC 99M Golden Champagne, DO [facility] 04/20/2019 Tetrofosmin, Per Unit Dose Up To 40 Millicuries Injection Technetium TC 99M Golden Champagne, DO [facility] 04/20/2019 Tetrofosmin, Per Unit Dose Up [...] CPT Code Status Date Vaccine Lot # [id number] Given 09/25/2019 Influenza Virus Vaccine, Quadrivalent, Split, Preservative Free [id number] Given 09/24/2018 Influenza Virus Vaccine, Quadrivalent, Split, Preservative Free 56762 Given 09/23/2017 Influenza Virus Vaccine, Quadrivalent, Split, [id number] Preservative Free [id number] Given 09/23/2017 Pneumococcal Conjugate Vaccine 13 Valent For [id number] Intramuscular Use Vital Signs Date Vital Result Comment 12/25/2019 9:23am Height 69 inches 5'9" Heart Rate 84 /min BP Systolic 100 mmHg BP Diastolic 60 mmHg Respiratory Rate 20 /min Body Temperature 97.9 F 12/21/2019 3:10pm Height 69 inches 5'9" Weight 193.00 lb with shoes Heart Rate 66 /min BP Systolic Sitting 144 mmHg lue reg cuff BP Diastolic Sitting 70 mmHg lue reg cuff BP Systolic Standing 140 mmHg lue reg cuff BP Diastolic Standing 68 mmHg lue reg cuff Respiratory Rate 14 /min BMI (Body Mass Index) 28.5 kg/m2 Ejection Fraction 50-55% echo. 03/13/19 Results Test Acquired Date Facility Test Result H/L Range Note CBC Auto 12/23/2019 [facility] White Blood 5.5 10^3/uL Normal 3.5-10.[address] [place] [address] [phone] Red Blood Count 4.74 10^6/uL Normal 4.18-5.48 [...] % 0.0 Iron & Iron Binding 12/23/2019 [facility] Iron 33 g/dL Low 50-212 [address] [place] [address] [phone] Unsaturated Iron Binding < 205 g/dL Total Iron Binding Capacity 220 g/dL Low 250-450 Transferrin 157 mg/dL Low 203-362 % Iron Saturation 15 % Normal 15-55 Comp Metabolic 12/23/2019 [facility] Sodium 136 mmol/L Normal 135-145 Panel [address] [place] [address] [phone] Potassium 4.0 mmol/L Normal 3.5-5.0 Chloride 102 [...] >60 Egfr 78.3 >60 1 Laboratory 12/23/2019 [facility] D Dimer 261 ng/mL High Less 2 test finding [address] Quantitative Than [address] [place] [address] [phone] Comp Metabolic 11/23/2019 [facility] Sodium 139 Normal 135- [address] mmol/[place] [address] [phone] Potassium 3.8 mmol/L Normal 3.5-5.0 Chloride 107 [...] Egfr 64.3 >60 3 CBC Auto 11/23/2019 [facility] White Blood 4.2 10^3/uL Normal 3.5-10.[address] [place] [address] [phone] Red Blood Count 4.69 10^6/uL Normal 4.18-5.48 [...] Blood Cells % 0.0 Laboratory test 09/04/2019 [facility] Surgical SEE RESULT 4 , [address] [place] [address] [phone] Laboratory test 07/17/2019 [facility] Surgical SEE RESULT 6 , [address] [place] [address] [phone] Laboratory test 06/29/2019 [facility] PSA Diagnostic 0.593 ng/ mL 0-4.0 [address] [place] [address] [phone] 1 Because ethnic data is not always [...] 5 Kidney failure <15 (or dialysis) 4 [id number] 5 SEE RESULT BELOW Name: AARTI PEREZCHRISTINA Markham : [address]: Oj Quintero MD Acct: [id number] Unit: [id number] AGE: 89 Location: [facility] Re09/04/19 SEX: M Status: REG REF SPEC: [id number] DOMINGO: 09/04/191158 [facility] DR: Oj Quintero MD REQ: [id number] RECD: 09/04/193954 STATUS: MANPREET MEJIA DR: Serenity Hanson MD _ ORDERED: LEVEL 4 COMMENTS: [id number] FINAL DIAGNOSIS Skin, right mid forehead, excision: -- Scar, excised. -- No evidence of residual basal cell carcinoma. COMMENT: The previous lesion at this site ([id number]) has been completely excised. CLINICAL HISTORY See [facility] [id number] PRE-OPERATIVE DIAGNOSIS Basal cell carcinoma, suture lopez 12:00 medial apex margin GROSS DESCRIPTION The specimen is received in formalin labeled, Excision Basal Cell Carcinoma Right Mid Forehead, Suture Lopez 12:00 Medial [place] Margin, and consists of a 3.0 x [...] 1103 END OF REPORT DEPARTMENT OF PATHOLOGY, [address] [place] [address] Jeet Hall M.D. Director JOVANY # [id number]:Morphology: pearly telangiectatic papule;DDX: Basal Cell Carcinoma; Location: right mid for 7 SEE RESULT BELOW Name: TOÑABETO : [address]: Vanessa Hanson MD Acct: [id number] Unit: [id number] AGE: 89 Location: [facility] Re07/17/19 SEX: M Status: REG REF SPEC: [id number] DOMINGO: 07/17/[address] [facility] [address]: Vanessa Hanson MD REQ: [id number] RECD: 07/17/19 STATUS: MANPREET MEJIA DR: Serenity Martin MD _ ORDERED: LEVEL 4 COMMENTS: [id number] FINAL DIAGNOSIS Skin, right mid forehead, biopsy: [...] 0949 END OF REPORT DEPARTMENT OF PATHOLOGY, [address] [place] [address] Jeet Hall M.D. Director [facility] # [id number] Serum levels of PSA measured using the [employer] DXI Hybritech immunoassay should not be interpreted as absolute evidence of the presence or absence of disease. The PSA value should be used in conjunction with other pertinent clinical diagnostic procedures. A PSA value in the range of 0.1 to 0.6 ng/ml is indeterminate if being used as an indicator of recurrent or residual disease. The values obtained with different assay methods or kits cannot be used interchangeably. Procedures Date Code Description Status 12/21/2019 83610 EKG Tracing & Interpretation Completed 12/07/2019 60022 Inject/Drain Joint/Bursa Major W/O US Completed 12/15/2013 15374626 Colonoscopy Completed 10/21/2007 [id number] Colonoscopy Completed Medical Devices Description No Information Available Encounters Type Date Location Provider Dx Diagnosis Office Visit 12/07/2019 [facility] Geno Clemens, M25.562 Pain in left knee 9:00a at [facility] Kelsey M25.462 Effusion, left knee M17.12 Unilateral primary osteoarthritis, left knee M54.32 Sciatica, left side Office Visit 07/16/2019 [facility] Internal Se[facility] 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 venom of bees, accidental, subs Office Visit 07/03/2019 [facility] Nurse Visit cc I10 Essential 2:00p Cardiology (primary) hypertension Assessments Date Code Description Provider 12/21/2019 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, unspecified Oleg Oquendo M.D. 12/21/2019 I10 Essential (primary) hypertension Oleg Oquendo M.D. 12/21/2019 D64.9 Anemia, unspecified Oleg Oquendo M.D. 12/21/2019 I49.3 Ventricular premature depolarization Oleg Oquendo M.D. 12/21/2019 R60.9 Edema Oleg Oquendo M.D. 12/21/2019 I82.402 Deep venous thrombosis Oleg Oquendo M.D. 12/21/2019 I45.89 Sinus node dysfunction Oleg Oquendo M.D. 12/07/2019 M25.562 Pain in left knee Geno Clemens M.D. 12/07/2019 M25.462 Effusion, left knee Geno Clemens M.D. 12/07/2019 M17.12 Unilateral primary osteoarthritis, left Genojeovany Clemens M.D. knee 12/07/2019 M54.32 Sciatica, left side Geno Clemens M.D. 11/27/2019 Z00.00 Encounter for general adult medical Seernity Martin M.D. examination without abnormal findings 11/27/2019 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, unspecified Serenity Martin M.D. 11/27/2019 I10 Essential (primary) hypertension Serenity Martin M.D. 11/27/2019 D64.9 Anemia, unspecified Serenity Martin M.D. 07/16/2019 T63.441D Toxic effect of venom of bees, Serenity Martin M.D. accidental (unintentional), subsequent encounter 07/03/2019 I10 Essential (primary) hypertension Nurse Visit cc Plan of Treatment Future Appointment(s):01/25/2020 9:30 am - Geno Clemens M.D. at [facility] at [facility]12/31/2019 8:40 am - Serenity Martin M.D. at [facility] Internal Medicine - [facility]01/11/2020 8:00 am - [place] [facility] Schedule at [facility]02/17/2020 11:20 am - Oleg Oquendo M.D. at [facility]08/2020 9:00 am - Serenity Martin M.D. at [facility] Internal Medicine [facility] Functional Status Description No Information Available Mental Status Description No Information Available Referrals Description No Information Available
--- OUTSIDE RECORDS SUMMARY | 2020-02-12 15:25 | XMS REPORT | Continuity of Care Document ---
:1930 External Reference #:[id number] Author Name Serenity Martin M.D. (transmitted by agent of provider Beverley Spears) Address [address] [facility], [place] [address] Care Team Providers Name Role Phone Glenda Physical Therapy Care Team Information [place] - Physical Therapist Serenity Martin MD - Internal Care Team Information [place] [phone] Medicine Oleg Oquendo MD - Cardiovascular Care Team Information [place] Disease Problems Active Problems Provider Date Localized, [...] Use denies alcohol use Smoking Status Reviewed: 12/31/19 Patient has never smoked Exercise Type/Frequency Exercises sporadically Allergies, Adverse Reactions, Alerts Active Allergies Reaction Severity Comments Date Novocain 01/15/2014 Medications Active Medications SIG Qnty Indications Ordering Date Provider Compression Stockings thigh high, 1Pair R60.0 Serenity 12/31/2019 Misc 15-20 mm hg. Kelsey Martin for daily use Tramadol HCL 1-2 tab every 28tabs Geno Clemens, 12/25/2019 50mg Tablets 12 hours as M.D. needed for pain Feraheme feraheme 2doses D50.9 Oleg Renita 12/23/2019 510mg/17ML Solution infusion 510 mg Kelsey Oquendo 2 doses total first infusion followed by a second infusion in a week Eliquis 1 by mouth 60tabs I82.402 Oleg Renita 12/21/2019 5mg Tablets twice a day Kelsey Oquendo Amoxicillin Take 4 tablets 20tabs Serenity 11/27/2019 500mg Tablets 1 hour prior to Kelsey Martin the procedure Lisinopril 2 by mouth 90tabs Oleg Renita 08/24/2019 10mg Tablets twice daily Kelsey Oquendo [...] M.D. 12/07/2019 Injection Technetium TC 99M Golden Champagne DO [facility] 04/20/2019 Tetrofosmin, Per Unit Dose Up To 40 Millicuries Injection Technetium TC 99M Golden Champagne DO [facility] 04/20/2019 Tetrofosmin, Per Unit Dose Up To [...] CPT Code Status Date Vaccine Lot # [id number] Given 09/25/2019 Influenza Virus Vaccine, Quadrivalent, Split, Preservative Free 34760 Given 09/24/2018 Influenza Virus Vaccine, Quadrivalent, Split, Preservative Free 70034 Given 09/23/2017 Influenza Virus Vaccine, Quadrivalent, Split, [id number] Preservative Free 30630 Given 09/23/2017 Pneumococcal Conjugate Vaccine 13 Valent For [id number] Intramuscular Use Vital Signs Date Vital Result Comment 12/31/2019 8:25am Height 69 inches 5'9" Weight 190.00 lb Heart Rate 63 /min BP Systolic 125 mmHg BP Diastolic 60 mmHg O2 % BldC Oximetry 99 % BMI (Body Mass Index) 28.1 kg/m2 12/25/2019 9:23am Height 69 inches 5'9" Heart Rate 84 /min BP Systolic 100 mmHg BP Diastolic 60 mmHg Respiratory Rate 20 /min Body Temperature 97.9 F Results Test Acquired Date Facility Test Result H/L Range Note CBC Auto 12/23/2019 [facility] White Blood 5.5 10^3/uL Normal 3.5-10.8 Diff [address] [facility] [place] [address] [phone] Red Blood Count 4.74 10^6/uL Normal 4.18-5.48 [...] % 0.0 Iron & Iron Binding 12/23/2019 [facility] Iron 33 g/dL Low 50-212 [address] [place] [address] [phone] Unsaturated Iron Binding < 205 g/dL Total Iron Binding Capacity 220 g/dL Low 250-450 Transferrin 157 mg/dL Low 203-362 % Iron Saturation 15 % Normal 15-55 Comp Metabolic 12/23/2019 [facility] Sodium 136 mmol/L Normal 135-145 Panel [address] [place] [address] [phone] Potassium 4.0 mmol/L Normal 3.5-5.0 Chloride 102 [...] >60 Egfr 78.3 >60 1 Laboratory 12/23/2019 [facility] D Dimer 261 ng/mL High Less 2 test finding [address] Quantitative [address] [place] [address] [phone] Comp Metabolic 11/23/2019 [facility] Sodium 139 Normal 135- [address] mmol/[place] [address] [phone] Potassium 3.8 mmol/L Normal 3.5-5.0 Chloride 107 [...] Egfr 64.3 >60 3 CBC Auto 11/23/2019 [facility] White Blood 4.2 10^3/uL Normal 3.5-10.[address] [place] [address] [phone] Red Blood Count 4.69 10^6/uL Normal 4.18-5.48 [...] Blood Cells % 0.0 Laboratory test 09/04/2019 [facility] Surgical SEE RESULT 4 , [address] [place] [address] [phone] Laboratory test 07/17/2019 [facility] Surgical SEE RESULT 6 , [address] [place] [address] [phone] 1 Because ethnic data is not always [...] 5 Kidney failure <15 (or dialysis) 4 [id number] 5 SEE RESULT BELOW Name: BETO PEREZ : [address]: Oj Quintero MD Acct: [id number] Unit: [id number] AGE: 89 Location: [facility] Re09/04/19 SEX: M Status: REG REF SPEC: [id number] DOMINGO: 09/04/191158 [facility] DR: Oj Quintero MD REQ: [id number] RECD: 09/04/199536 STATUS: MANPREET MEJIA DR: Serenity Hanson MD _ ORDERED: LEVEL 4 COMMENTS: [id number] FINAL DIAGNOSIS Skin, right mid forehead, excision: -- Scar, excised. -- No evidence of residual basal cell carcinoma. COMMENT: The previous lesion at this site ([id number]) has been completely excised. CLINICAL HISTORY See [facility] [id number] PRE-OPERATIVE DIAGNOSIS Basal cell carcinoma, suture lopez 12:00 medial apex margin GROSS DESCRIPTION The specimen is received in formalin labeled, Excision Basal Cell Carcinoma Right Mid Forehead, Suture Lopez 12:00 Medial [place] Margin, and consists of a 3.0 x [...] 1103 END OF REPORT DEPARTMENT OF PATHOLOGY, [address] [place] [address] Jeet Hall M.D. Director [facility] # [id number]:Morphology: pearly telangiectatic papule;DDX: Basal Cell Carcinoma; Location: right mid for 7 SEE RESULT BELOW Name: BETO PEREZ : [address]: Vanessa Hanson MD Acct: [id number] Unit: [id number] AGE: 89 Location: [facility] Re07/17/19 SEX: M Status: REG REF SPEC: [id number] DOMINGO: 07/17/19 [facility] DR: Vanessa Hanson MD REQ: [id number] RECD: 07/17/19 STATUS: MANPREET MEJIA DR: Serenity Martin MD _ ORDERED: LEVEL 4 COMMENTS: [id number] FINAL DIAGNOSIS Skin, right mid forehead, biopsy: [...] 0949 END OF REPORT DEPARTMENT OF PATHOLOGY, [address] [place] [address] Jeet Hall M.D. Director [facility] # [id number] Procedures Date Code Description Status 12/21/2019 73325 EKG Tracing & Interpretation Completed 12/07/2019 49422 Inject/Drain Joint/Bursa Major W/O US Completed 12/15/2013 81955953 Colonoscopy Completed 10/21/2007 55837211 Colonoscopy Completed Medical Devices Description No Information Available Encounters Type Date Location Provider Dx Diagnosis Office Visit 12/21/2019 [facility] Oleg Piedra 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 , 3:20p Of [place] Oquendo M.D. 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 venom of bees, accidental, subs Office Visit 07/03/2019 [facility] Nurse Visit cc I10 Essential 2:00p Cardiology (primary) hypertension Assessments Date Code Description Provider 12/31/2019 R60.0 Localized edema Serenity Martin M.D. 12/31/2019 M25.562 Pain in left knee Serenity Martin M.D. 12/21/2019 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, unspecified Oleg Oquendo M.D. [...] 9:30 am - Geno Clemens M.D. at [facility] at Xxvpuv8401/11/2020 8:00 am - [place] [facility] Schedule at [facility] Inbmgncohq38/18/2020 11:20 am - Oleg Oquendo M.D. at [facility] Vcqcrxeyve86/ 09/2020 9:00 am - Serenity Martin M.D. at [facility] Internal Medicine - [facility]2019 - Serenity Martin M.D.R60.0 Localized edemaNew Medication:Compression Stockings - thigh high, 15-20 mm hg. for daily useComments:Keep your feet up when sitting Wear support hose - look for thigh-high, 15-20The CT scan does not show anything that would cause swelling in the left leg Talk to Dr. Oquendo about risks of surgeryFollow up:See me in IybfyN56.562 Pain in left kneeComments :You can take up to 6 tramadol in a day Functional Status Description No Information Available Mental Status Description No Information Available Referrals Description No Information Available
--- OUTSIDE RECORDS SUMMARY | 2020-02-12 15:26 | XMS REPORT | Continuity of Care Document ---
:1930 External Reference #:[id number] Author Name Oleg Oquendo M.D. (transmitted by agent of provider Michelle Koch) Address [address] [place] [id number] Care Team Providers Name Role Phone Tyron Nirmal Luis Physical Therapy Care Team Information Chief Orthoptist [phone] [place] - Physical Therapist Serenity Martin MD - Internal Care Team Information Chief Orthoptist [phone] Medicine Oleg Oquendo MD - Cardiovascular Care Team Information Chief Orthoptist [phone] Disease Problems Active Problems Provider Date Localized, [...] Use denies alcohol use Smoking Status Reviewed: 12/21/19 Patient has never smoked Exercise Type/Frequency Exercises sporadically Allergies, Adverse Reactions, Alerts Active Allergies Reaction Severity Comments Date Novocain 01/15/2014 Medications Active Medications SIG Qnty Indications Ordering Date Provider Itzel 1 by mouth 60tabs I82.402 Oleg Piedra 12/21/2019 5mg Tablets twice a day Kelsey [...] Injection Technetium TC 99M Golden Champagne, DO [facility] 04/20/2019 Tetrofosmin, Per Unit Dose Up To 40 Millicuries Injection Technetium TC 99M Golden Champagne, DO [facility] 04/20/2019 Tetrofosmin, Per Unit Dose Up [...] CPT Code Status Date Vaccine Lot # [id number] Given 09/25/2019 Influenza Virus Vaccine, Quadrivalent, Split, Preservative Free [id number] Given 09/24/2018 Influenza Virus Vaccine, Quadrivalent, Split, Preservative Free [id number] Given 09/23/2017 Influenza Virus Vaccine, Quadrivalent, Split, [id number] Preservative Free 65118 Given 09/23/2017 Pneumococcal Conjugate Vaccine 13 Valent For [id number] Intramuscular Use Vital Signs Date Vital Result Comment 12/21/2019 3:10pm Height 69 inches 5'9" Weight 193.00 lb with shoes Heart Rate 66 /min BP Systolic Sitting 144 mmHg lue reg cuff BP Diastolic Sitting 70 mmHg lue reg cuff BP Systolic Standing 140 mmHg lue reg cuff BP Diastolic Standing 68 mmHg lue reg cuff Respiratory Rate 14 /min BMI (Body Mass Index) 28.5 kg/m2 Ejection Fraction 50-55% echo. 03/13/19 12/07/2019 9:14am Height 69 inches 5'9" Weight 191.00 lb Heart Rate 56 /min BP Systolic 128 mmHg BP Diastolic 56 mmHg Respiratory Rate 16 /min Body Temperature 97.9 F Pain Level 8 BMI (Body Mass Index) 28.2 kg/m2 Results Test Acquired Date Facility Test Result H/L Range Note Comp Metabolic 11/23/2019 [facility] Sodium 139 mmol/L Normal 135-145 Panel [address] [place], [place] [id number] [phone] Potassium 3.8 mmol/L Normal 3.5-5.0 Chloride 107 [...] Egfr Non- 53.2 >60 Egfr 64.3 >60 1 CBC Auto 11/23/2019 [facility] White Blood 4.2 10^3/uL Normal 3.5-10.[address] [place], [place] [id number] [phone] Red Blood Count 4.69 10^6/uL Normal 4.18-5.48 [...] Blood Cells % 0.0 Laboratory test 09/04/2019 [facility] Surgical SEE RESULT 2 , [address] [place] [address] [phone] Laboratory test 07/17/2019 [facility] Surgical SEE RESULT 4 , [address] [place] [address] [phone] Laboratory test 06/29/2019 [facility] PSA Diagnostic 0.593 ng/ mL 0-4.0 [address] [place] [address] [phone] 1 Because ethnic data is not always [...] 5 Kidney failure <15 (or dialysis) 2 [id number] 3 SEE RESULT BELOW Name: BETO PEREZ Rashi : [address]: Oj Quintero MD Acct: [id number] Unit: [id number] AGE: 89 Location: [facility] Re09/04/19 SEX: M Status: REG REF SPEC: [id number] DOMINGO: 09/04/19 [facility] DR: Oj Quintero MD REQ: [id number] RECD: 09/04/19 STATUS: MANPREET MEJIA DR: Serenity Hanson MD _ ORDERED: LEVEL 4 COMMENTS: [id number] FINAL DIAGNOSIS Skin, right mid forehead, excision: -- Scar, excised. -- No evidence of residual basal cell carcinoma. COMMENT: The previous lesion at this site ([id number]) has been completely excised. CLINICAL HISTORY [place] [facility] [id number] PRE-OPERATIVE DIAGNOSIS Basal cell carcinoma, suture lopez 12:00 medial apex margin GROSS DESCRIPTION The specimen is received in formalin labeled, Excision Basal Cell Carcinoma Right Mid Forehead, Suture Lopez 12:00 Medial [place] Margin, and consists of a 3.0 x [...] 1103 END OF REPORT DEPARTMENT OF PATHOLOGY, [address] [place] [address] Jeet Hall M.D. Director JOVANY # [id number]:Morphology: pearly telangiectatic papule;DDX: Basal Cell Carcinoma; Location: right mid for 5 SEE RESULT BELOW Name: TOÑABETO : [address]: Vanessa Hanson MD Acct: [id number] Unit: [id number] AGE: 89 Location: [facility] Re07/17/19 SEX: M Status: REG REF SPEC: [id number] DOMINGO: 07/17/19 [facility] DR: Vanessa Hanson MD REQ: [id number] RECD: 07/17/19 STATUS: MANPREET MEJIA DR: Serenity Martin MD _ ORDERED: LEVEL 4 COMMENTS: [id number] FINAL DIAGNOSIS Skin, right mid forehead, biopsy: [...] 0949 END OF REPORT DEPARTMENT OF PATHOLOGY, [address] [place] [address] Jeet Hall M.D. Director [facility] # [id number] 6 Serum levels of PSA measured using the [...] interchangeably. Procedures Date Code Description Status 12/21/2019 05830 EKG Tracing & Interpretation Completed 12/07/2019 24932 Inject/Drain Joint/Bursa Major W/O US Completed 12/15/2013 80888445 Colonoscopy Completed 10/21/2007 [id number] Colonoscopy Completed Medical Devices Description No Information Available Encounters Type Date Location Provider Dx Diagnosis Office Visit 07/16/2019 [employer] [facility] Internal Seren[facility] 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 venom of bees, accidental, subs Office Visit 07/03/2019 [facility] Nurse Visit cc I10 Essential ( primary) 2:00p hypertension Assessments Date Code Description Provider 12/21/2019 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, unspecified Oleg Oquendo M.D. 12/21/2019 I10 Essential (primary) hypertension Oleg Oquendo M.D. 12/21/2019 D64.9 Anemia, unspecified Oleg Oquendo M.D. 12/21/2019 I49.3 Ventricular premature depolarization Oleg Oquendo M.D. 12/21/2019 R60.9 Edema Oleg Oquendo M.D. 12/21/2019 I82.402 Deep venous thrombosis Oleg Oquendo M.D. 12/07/2019 M25.562 Pain in left knee Geno Clemens M.D. 12/07/2019 M25.462 Effusion, left knee Geno Clemens M.D. 12/07/2019 M17.12 Unilateral primary osteoarthritis, left Geno Clemens M.D. knee 12/07/2019 M54.32 Sciatica, left side Geno Clemens M.D. 11/27/2019 Z00.00 Encounter for general adult medical Serenity Martin M.D. examination without abnormal findings 11/27/2019 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, unspecified Serenity Martni M.D. 11/27/2019 I10 Essential (primary) hypertension Serenity Martin M.D. 11/27/2019 D64.9 Anemia, unspecified Serenity Martin M.D. 07/16/2019 T63.441D Toxic effect of venom of bees, Serenity Martin M.D. accidental (unintentional), subsequent encounter 07/03/2019 I10 Essential (primary) hypertension Nurse Visit cc Plan of Treatment Future Appointment(s):01/11/2020 8:00 am - [facility] at [facility]02/17/2020 11:20 am - Oleg Oquendo M.D. at [facility] 9:15 am - Geno Clemens M.D. at [facility] at [facility]/08/2020 9:00 am - Serenity Martin M.D. at [facility] Internal Medicine - [facility]12/21/2019 - Oleg Oquendo M.D.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, unspecifiedNew Orders: Echocardiogram, Scheduled: 01/04/20I10 Essential (primary) hypertensionNew Xrays :Ventilation/Perfusion Scan, Scheduled: 01/14/20D64.9 Anemia, unspecifiedFollow up:OV BARBY 2 AQZLYX80.3 Ventricular premature kwpwbphbflupniB98.9 EdemaNew Xrays:Venous Doppler Lower Don Ext, Scheduled: 12/22/19Follow up:[facility] 02/18 OVI82.402 Deep venous thrombosisNew Medication:Eliquis 5 mg - 1 by mouth twice a day Functional Status Description No Information Available Mental Status Description No Information Available Referrals Description No Information Available
[2020-02-12] MEDS ORDERED: NS 0.9% 500 ML* 500 ML IV ONE (16:17)
[2020-02-12] MEDS ORDERED: NS 0.9% 1000 ML** 1,000 ML IV ONE (16:33)
[2020-02-12 17:39] LABS: Albumin 2.5 g/dL (3.2-5.2); Albumin/Globulin Ratio 1.2 (1-3); BUN/Creatinine Ratio 26.6 (8-20); Calcium 7.7 mg/dL (8.6-10.3); EGFR African American 77.4 (>60); Globulin 2.1 g/dL (2-4); Potassium 3.4 mmol/L (3.5-5.0); Total Bilirubin 0.4 mg/dL (0.2-1.0); Total Protein 4.6 g/dL (6.4-8.9)
--- NOTE | 2020-02-12 17:39 | ED ---
Complex/Multi-Sys Presentation - HPI Summary HPI Summary: Patient is an 89-year-old male who presents emergency department for leg pain and cramping 3-4 days. Patient underwent cardiac catheterization about 2 weeks ago by kenia Rebolledo and was found to have mild left sided heart failure. He was placed on Entresto by Dr. Oquendo. Patient started complaining of muscle pain 3 weeks ago. He notes he did have lower abdominal pain and diarrhea last week which has resolved. Patient denies any strenuous activity or recent falls. Patient's all his PCP, Dr. Martin this week and was found to have an elevated creatinine kinase. Patient denies chest pain, shortness of breath, cough. Symptoms are moderate in severity. No current modifying factors. - History Of Current Complaint Chief Complaint: EDGeneral Time Seen by Provider: 02/12/20 15:46 Hx Obtained From: Patient - Allergies/Home Medications Allergies/Adverse Reactions: Allergies Allergy/AdvReac Type Severity Reaction Status Date / Time bee venom protein (honey bee) Allergy Rash And Verified 02/12/20 15:12 Itching procaine Allergy Hives Verified 02/12/20 15:12 Home Medications: Home Medications Hydrochlorothiazide TAB* [Hydrodiuril TAB*] 12.5 mg PO QAM 12/11/13 [History Confirmed 02/12/20] Lisinopril TAB* [Prinivil TAB 10 MG*] 5 mg PO QAM 12/11/13 [History Confirmed ] Finasteride TAB* [Proscar TAB*] 5 mg PO QAM 12/29/15 [History Confirmed 02/12/20 ] Doxazosin TAB* [Cardura TAB*] 4 mg PO BEDTIME 10/20/18 [History Confirmed ] Metoprolol Succinate XL TAB* [Toprol XL TAB*] 12.5 mg PO DAILY 05/11/19 [ History Confirmed 02/12/20] Amoxicillin PO (*) [Amoxicillin 500 MG CAP*] 2,000 mg PO ONCE PRN 01/18/20 [ History Confirmed 02/12/20] Aspirin EC TAB* [Ecotrin EC Low Dose 81 MG*] 81 mg PO QAM 01/18/20 [History Confirmed 02/12/20] traMADol TAB* [Ultram*] 50 - 100 mg PO Q12H PRN 01/18/20 [History Confirmed ] PMH/Surg Hx/FS Hx/Imm Hx Previously Healthy: Yes Endocrine/Hematology History: Denies: Hx Diabetes Cardiovascular History: Reports: Hx Hypertension - ON MEDICATION FOR Denies: Hx Pacemaker/ICD, Other Cardiovascular Problems/Disorders Respiratory History: Denies: Hx Asthma, Other Respiratory Problems/Disorders GI History: Reports: Hx Gastroesophageal Reflux Disease - ON MEDICATION FOR Denies: Other GI Disorders History: Reports: Other Problems/Disorders - BPH Denies: Hx Dialysis, Hx Renal Disease Musculoskeletal History: Reports: Hx Arthritis - RIGHT HIP, RIGHT KNEE, Hx Back Problems Denies: Other Musculoskeletal History Sensory History: Reports: Hx Cataracts, Hx Contacts or Glasses, Hx Hearing Aid, Hx Hearing Problem Opthamlomology History: Reports: Hx Cataracts, Hx Contacts or Glasses Neurological History: Reports: Other Neuro Impairments/Disorders - PAIN CLINIC PATIENT Psychiatric History: Denies: Hx Panic Disorder - Cancer History Cancer Type, Location and Year: BASAL CELL CARCINOMA Hx Chemotherapy: No Hx Radiation Therapy: No - Surgical History Surgery Procedure, Year, and Place: 12/1994 HEMORRHOIDECTOMY, [facility] [place]. 03/1995 EXCISION OF BCC LEFT LEG, [facility]. 07/1995 BASAL CELL CARCINOMA LEFT LEG RECURRENT; WIDE EXCISION-SPLIT THICKNESS SKIN GRAFT FROM LEFT LEG TO LEFT LEG, [facility]. 12/2003 HEMORRHOIDECTOMY, [facility]. 11/11/2015-BASAL CELL REMOVED FROM THE RIGHT ANGLICAN. November 2016 - right hip replacement Hx Anesthesia Reactions: No - Immunization History Immunizations Up to Date: Yes Infectious Disease History: No Infectious Disease History: Denies: Traveled Outside the [place] in Last 30 Days - Family History Known Family History: Positive: Non-Contributory - Social History Occupation: Retired Lives: With Family Alcohol Use: None Alcohol Amount: 1 drink per week Substance Use Type: Reports: None Smoking Status (MU): Never Smoked Tobacco Have You Smoked in the Last Year: No Review of Systems Constitutional: Negative Negative: Fever, Chills Cardiovascular: Negative Negative: Palpitations, Chest Pain Respiratory: Negative Negative: Shortness Of Breath, Cough Gastrointestinal: Negative Genitourinary: Negative Positive: Myalgia Skin: Negative Neurological/Mental Status: Negative All Other Systems Reviewed And Are Negative: Yes Physical Exam Triage Information Reviewed: Yes Vital Signs On Initial Exam: Initial Vitals Temp Pulse Resp BP Pulse Ox 98.4 F 67 16 139/89 99 03/13/20 15:11 02/12/20 15:11 02/12/20 15:11 02/12/20 15:11 02/12/20 15:11 Vital Signs Reviewed: Yes Appearance: Positive: Well-Appearing - Pt. sitting up in bed in NAD. Answers questions appropriately. Family present. Skin: Positive: Warm, Dry Head/Face: Positive: Normal Head/Face Inspection Eyes: Positive: Normal, EOMI Neck: Positive: Supple Respiratory/Lung Sounds: Positive: Clear to Auscultation, Breath Sounds Present , Rales Cardiovascular: Positive: Normal, RRR Musculoskeletal: Positive: Other - Diffuse tenderness to lower legs. No calf edema. Neurological: Positive: Normal, Alert, Oriented to Person Place, Time, CN Intact II-III Psychiatric: Positive: Affect/Mood Appropriate Procedures - Sedation Patient Received Moderate/Deep Sedation with Procedure: No Diagnostics - Vital Signs Vital Signs Temp Pulse Resp BP Pulse Ox 02/12/20 17:23 99.0 F 78 19 111/89 02/12/20 15:11 98.4 F 67 16 139/89 99 - Laboratory Result Diagrams: 02/12/20 16:58 Lab Statement: Any lab studies that have been ordered have been reviewed, and results considered in the medical decision making process. Complex Multi-Symp Course/Dx Course Of Treatment: Pt. with elevated CK likely secondary to entresto. Afebrile with stable VS. CK 02/07 2,680, 02/11 3,046. Case discussed with cardiology, Dr. Godfrey, who notes Entresto can cause rhambdo in rare cases. Entresto was stopped a few days ago. Case discussed with Dr. Case, hospitalist , and he will consult but recommends recheck CK now and giving 1L of NS and rechecking CK. If ck is going down can likely dc home. Plan discussed with pt. and family and they are agreeable. Pt. will be signed out to [facility] for disposition. - Diagnoses Provider Diagnoses: Rhabdomyolysis Discharge ED - Sign-Out/Discharge Documenting (check all that apply): Sign-Out Patient Signing out patient TO: Alison Watts - Discharge Plan Condition: Good Referrals: Serenity Martin MD [Primary Care Provider] - - Billing Disposition and Condition Condition: GOOD - Attestation Statements Provider Attestation: I was available for consultation for this patient. I did not evaluate the patient or participate in any medical decision making or disposition decisions unless I am specifically named in the chart as having consulted on the patient. If I have consulted on the patient, please see my own ED note on the patient encounter. Riccardo Jacobo MD
--- NOTE | 2020-02-12 17:49 | ED ---
Course/Dx - Course Course Of Treatment: Pt. with elevated CK likely secondary to entresto. Afebrile with stable VS. CK 02/07 2,680, 02/11 3,046. Case discussed with cardiology, Dr. Godfrey, who notes Entresto can cause rhambdo in rare cases. Entresto was stopped a few days ago. patient will be admitted per dr rangel. - Diagnoses Provider Diagnoses: Rhabdomyolysis Discharge ED - Sign-Out/Discharge Documenting (check all that apply): Patient Departure, Receiving Sign-Out Receiving patient FROM: Jay Jay Johnson - Discharge Plan Condition: Good Disposition: ADMITTED TO [facility] - Billing Disposition and Condition Condition: GOOD Disposition: Admitted to [facility]
[2020-02-12] MEDS ORDERED: Potassium Chlor TAB* 20 MEQ TAB.ER PO ONE (18:23)
[2020-02-12] MEDS: Docusate CAP* 100 MG PO PRN (18:38)
[2020-02-12] MEDS: Enoxaparin(*) 40 MG/0.4 ML SYR SUBCUT SCH (18:38)
[2020-02-12] MEDS: traMADol TAB* 50 MG PO PRN (20:13)
--- NOTE | 2020-02-12 20:58 | HP ---
CC: Dr. Martin; Dr. Oquendo * ADMISSION HISTORY AND PHYSICAL: DATE OF ADMISSION: PRIMARY CARE PROVIDER: Dr. Martin. HEALTHCARE PROXY: His . CODE STATUS: Full. SOURCE OF INFORMATION: History obtained from interview of patient, his , review of medical records from Dr. Martin as well as previous records by Dr. Oquendo. RELIABILITY: Good. CHIEF COMPLAINT: Sent in for elevated total CK. HISTORY OF PRESENT ILLNESS: This is an 89-year-old man with a past medical history of a newly identified depressed left ventricular ejection fraction, which he recently underwent a left heart cath. Towards the beginning of January around 01/14/20, he developed a cough, sore throat, and congestion as well as diarrhea after his had a similar illness. While his cough and sore throat improved, his diarrhea has persisted. It has only recently improved over the last week. He underwent a cardiac catheterization on with no significant CAD to identify the etiology of his newly depressed EF and he was started on Entresto the day after on 01/29/20. However, after the day after starting the Entresto and left heart cath, he started to develop flushing red face associated with described "puffiness" and pain greatest in his bilateral quadriceps, but as well as his back and shoulders, described as " I hurt all over." He followed with Dr. Martin and he had a total CK of 2680 that was repeated and cyndie to 3086 from 02/08/20 to the 02/12/20. Because of the elevation in total CK, he was sent to the emergency room. Of note, he had decreased p.o. intake for the last several days and has felt particularly thirsty. PAST MEDICAL HISTORY: Includes hypertension; right bundle-branch block; BPH; GERD; fatty liver; iron-deficiency anemia; cardiomyopathy, EF was most recently 30% to 35%; chronic back pain; gout. PAST SURGICAL HISTORY: He has had a total right hip replacement, hemorrhoidectomy, bilateral cataracts, carpal tunnel release. HOME MEDICATIONS: 1. Aspirin 81 mg daily. 2. Doxazosin 4 mg in the evening. 3. Finasteride 5 mg in the evening. 4. Hydrochlorothiazide 12.5 mg. 5. Metoprolol succinate 12.5 mg. 6. Entresto 24/26 mg. ALLERGIES: BEE VENOM, PROTEIN, and PROCAINE. FAMILY HISTORY: Father with CAD. SOCIAL HISTORY: He lives at home with his . No tobacco. No alcohol. PHYSICAL EXAMINATION GENERAL: Younger than stated age, interactive, pleasant, in no apparent distress. VITAL SIGNS: In the emergency room, 111/89, heart rate 78, respiratory rate is 16 on room air, T-max 99. HEENT: His oropharynx is clear. He has dry mucous membranes. Sclerae are anicteric. He does have an elevated JVD to the angle of his jaw. LUNGS: His lungs do have coarse rhonchi most prominently in the bases. HEART: He has regular rate and rhythm. No murmurs, rubs, or gallops. ABDOMEN: Soft, nontender, nondistended. EXTREMITIES: Warm and well perfused. Bilateral legs show no evidence of trauma or ecchymosis. He does have pain to palpation in bilateral quadriceps. Pain is most significantly pronounced when trying to move his legs and is associated with weakness. His cath was performed through his right radial artery. There is no bruit or ecchymosis. NEUROLOGIC: He is alert and oriented x3. His cranial nerves II through XII are intact. He does have 4/5 strength in bilateral lower extremities, 5/5 in the upper extremities. DIAGNOSTIC STUDIES/LAB DATA: Labs reviewed. Repeat total CK is pending. AST of 191, ALT of 65, alk phos 55, all decreasing from an outpatient. Total bilirubin 0.5. BUN 29, creatinine 1.09. Data reviewed. Chest x-ray, no active cardiopulmonary disease on this author's interpretation. ASSESSMENT AND PLAN: This is an 89-year-old man with newly diagnosed systolic congestive heart failure, underwent cardiac catheterization, now presenting with approximately 1 week of diffuse myalgias and weakness, found with elevated CK. 1. Rhabdomyolysis, unknown etiology. He had a preceding illness from the month prior to his procedure. His similarly had an illness that certainly could be of viral etiology. Although he did begin to get ill beginning of the month on 01/14/20, I might have expected this to occur earlier. He has not experienced a crescendo and his pain has only been constant since he started. In the setting of recently started medication, Entresto, and associated erythema on his face that developed a day after, it certainly could be an allergy to the medication. It is rare, but described rhabdomyolysis to Entresto , the medication has been discontinued. He is receiving a liter of fluid in the emergency room. Repeat CK in the morning. I am hesitant to give more than that given the decreased EF. Additional fluids in the morning based on its improvement . Of note, he does have a newly depressed EF and now peripheral myalgias with an elevated CK, unclear if the two are tied together and he had a viral myopathy that might have contributed to his new cardiomyopathy or some other etiology that has not yet been identified. 2. Hypertension. Continue hydrochlorothiazide and metoprolol succinate. 3. DVT prophylaxis. [place]. [id number]/[facility] #: [id number] ZACHARY
[2020-02-12] MEDS: Doxazosin TAB* 2 MG PO SCH (21:43)
[2020-02-13 04:40] LABS: ABS Lymphocytes 0.6 10^3/ul (1.0-4.8); ABS Monocytes 0.4 10^3/ul (0-0.8); ABS Neutrophils 3.8 10^3/ul (1.5-7.7); Eosinophil % 0.4 %; Hematocrit 37 % (42-52); Hemoglobin 12.3 g/dL (14.0-18.0); Lymphocyte % 12.5 %; Mean Corpuscular HGB Conc 33 g/dL (31-36); Mean Corpuscular Hemoglobin 25 pg (27-31); Mean Corpuscular Volume 77 fL (80-94); Mean Platelet Volume 8.4 fL (7.4-10.4); Platelet Count 139 10^3/uL (150-450); Red Blood Count 4.86 10^6 /uL (4.18-5.48); Red Cell Distribution Width 15 % (10-15); White Blood Count 4.8 10^3/uL (3.5-10.8)
[2020-02-13 04:53] LABS: BUN/Creatinine Ratio 23.9 (8-20); Calcium 7.6 mg/dL (8.6-10.3); EGFR African American 77.4 (>60); Potassium 4.5 mmol/L (3.5-5.0)
[2020-02-13] MEDS: Metoprolol Succinate XL TAB* 25 MG PO SCH (07:58)
[2020-02-13] MEDS: Aspirin EC TAB* 81 MG TAB.EC PO SCH (07:58)
[2020-02-13] MEDS: traMADol TAB* 50 MG PO PRN ×2 (07:58→21:14)
[2020-02-13] MEDS: Hydrochlorothiazide TAB* 25 MG PO SCH (07:58)
[2020-02-13] MEDS: Finasteride TAB* 5 MG PO SCH (07:59)
[2020-02-13] MEDS: NS 0.9% 1000 ML** 1,000 ML IV SCH ×2 (08:52→16:27)
[2020-02-13] MEDS ORDERED: Lisinopril TAB* 10 MG PO SCH (09:00)
[2020-02-13] MEDS: Enoxaparin(*) 40 MG/0.4 ML SYR SUBCUT SCH (16:24)
[2020-02-13 17:38] LABS: Phosphorus 2.9 mg/dL (2.5-5.0)
[2020-02-13 17:54] LABS: TSH (Thyroid Stimulating Horm) 1.31 mcIU/mL (0.34-5.60)
--- NOTE | 2020-02-13 18:15 | PN ---
Subjective Date of Service: 02/13/20 Interval History: Pain in proximal thighs. Worse with walking or flexing at hips but not very bad when lying flat Denies SOB, chest pain feels weaker when walking Objective Active Medications: Aspirin (Aspirin Ec Tab*) 81 mg PO QAM [facility] Last Admin: 02/13/20 07:58 Dose: 81 mg Docusate Sodium (Colace Cap*) 100 mg PO BID PRN PRN Reason: CONSTIPATION Last Admin: 02/12/20 18:38 Dose: 100 mg Doxazosin Mesylate (Cardura Tab*) 4 mg PO BEDTIME [facility] Last Admin: 02/12/20 21:43 Dose: 4 mg Enoxaparin Sodium (Lovenox(*)) 40 mg SUBCUT Q24H [facility] Last Admin: 02/13/20 16:24 Dose: 40 mg Finasteride (Proscar Tab*) 5 mg PO QAM [facility] Last Admin: 02/13/20 07:59 Dose: 5 mg Hydrochlorothiazide (Hydrodiuril Tab*) [facility] Last Admin: 02/13/20 07:58 Dose: 12.5 mg Metoprolol Succinate (Toprol Xl Tab*) 12.5 mg PO DAILY [facility] Last Admin: 02/13/20 07:58 Dose: 12.5 mg Tramadol HCl (Ultram*) 50 mg PO Q12H PRN PRN Reason: PAIN - MILD Last Admin: 02/13/20 07:58 Dose: 50 mg Vital Signs - 8 hr 02/13/20 02/13/20 11:44 15:28 Temperature 98.5 F 98.2 F Pulse Rate 62 69 Respiratory 16 16 Rate Blood Pressure 119/65 119/61 (mmHg) O2 Sat by Pulse 99 98 Oximetry Oxygen Devices in Use Now: None Appearance: younger than staged age, NAD Eyes: No Scleral Icterus Ears/Nose/Mouth/Throat: NL Teeth, Lips, Gums, Clear Oropharnyx Neck: NL Appearance and Movements; NL JVP, Trachea Midline Respiratory: Symmetrical Chest Expansion and Respiratory Effort, - - rales right base Cardiovascular: RRR Abdominal: NL Sounds; No Tenderness; No Distention, No Hepatosplenomegaly Lymphatic: No Cervical Adenopathy Extremities: No Edema, - - no TTP over legs Skin: No Rash or Ulcers Neurological: Alert and Oriented x 3 Result Diagrams: 02/13/20 04:24 02/13/20 04:24 Assess/Plan/Problems-Billing Assessment: 89 yo M h/o sCHF, HTN pw pain and weakness found with rhabdo - Patient Problems (1) Rhabdomyolysis Comment: Unclear etiology. Had preceeding illness - URI and GI (diarrhea) as well as initiation of new medication entresto followed by myalgias and facial flushing -May be viral in nature or allergy/adverse reaction to entresto -TSH, phosphorous, other electrolytes wnl -check ehrlichia -repeat CK pending. If improved will hol don additional NS and repeat CK in AM otherwise countine crystalloids (2) HTN (hypertension) Comment: HCTX and metoprolol (3) DVT prophylaxis Comment: lovenox
[2020-02-13] MEDS: Doxazosin TAB* 2 MG PO SCH (21:15)
[2020-02-14 06:24] LABS: Albumin 2.3 g/dL (3.2-5.2); Albumin/Globulin Ratio 1.2 (1-3); BUN/Creatinine Ratio 21.8 (8-20); C Reactive Protein 56.45 mg/L (<8.01); Calcium 7.4 mg/dL (8.6-10.3); EGFR African American 84.5 (>60); EGFR Non-African American 69.9 (>60); Indirect Bilirubin 0.4 mg/dL (0.3-1.0); Potassium 3.8 mmol/L (3.5-5.0); Total Bilirubin 0.5 mg/dL (0.2-1.0); Total Protein 4.3 g/dL (6.4-8.9)
[2020-02-14] MEDS: Finasteride TAB* 5 MG PO SCH (08:45)
[2020-02-14] MEDS: Aspirin EC TAB* 81 MG TAB.EC PO SCH (08:45)
[2020-02-14] MEDS: Metoprolol Succinate XL TAB* 25 MG PO SCH (08:46)
[2020-02-14] MEDS: Hydrochlorothiazide TAB* 25 MG PO SCH (08:47)
[2020-02-14] MEDS: NS 0.9% 1000 ML** 1,000 ML IV SCH (09:00)
[2020-02-14] MEDS: traMADol TAB* 50 MG PO PRN (11:02)
--- NOTE | 2020-02-14 17:41 | PN ---
Subjective Date of Service: 02/14/20 Interval History: Feels better. No pain in legs anymore walking without pain Objective Active Medications: Aspirin (Aspirin Ec Tab*) [facility] Last Admin: 02/14/20 08:45 Dose: 81 mg Docusate Sodium (Colace Cap*) 100 mg PO BID PRN PRN Reason: CONSTIPATION Last Admin: 02/12/20 18:38 Dose: 100 mg Doxazosin Mesylate (Cardura Tab*) 4 mg PO BEDTIME [facility] Last Admin: 02/13/20 21:15 Dose: 4 mg Enoxaparin Sodium (Lovenox(*)) 40 mg SUBCUT Q24H [facility] Last Admin: 02/13/20 16:24 Dose: 40 mg Finasteride (Proscar Tab*) [facility] Last Admin: 02/14/20 08:45 Dose: 5 mg Hydrochlorothiazide (Hydrodiuril Tab*) 12.5 mg PO [facility] Last Admin: 02/14/20 08:47 Dose: 12.5 mg Sodium Chloride (Ns 0.9% 1000 Ml) 1,000 mls @ 100 mls/hr IV PER RATE [facility] Metoprolol Succinate (Toprol Xl Tab*) 12.5 mg PO DAILY [facility] Last Admin: 02/14/20 08:46 Dose: 12.5 mg Tramadol HCl (Ultram*) 50 mg PO Q12H PRN PRN Reason: PAIN - MILD Last Admin: 02/14/20 11:02 Dose: 50 mg Vital Signs - 8 hr 02/14/20 02/14/20 02/14/20 11:02 11:34 14:48 Temperature 98.8 F 98.6 F Pulse Rate 75 73 Respiratory 20 16 16 Rate Blood Pressure 119/52 120/56 (mmHg) O2 Sat by Pulse 98 99 Oximetry 02/14/20 16:16 Temperature Pulse Rate Respiratory 18 Rate Blood Pressure (mmHg) O2 Sat by Pulse Oximetry Oxygen Devices in Use Now: None Appearance: NAD Eyes: No Scleral Icterus, PERRLA Ears/Nose/Mouth/Throat: NL Teeth, Lips, Gums, Clear Oropharnyx Neck: NL Appearance and Movements; NL JVP, Trachea Midline Respiratory: Symmetrical Chest Expansion and Respiratory Effort, - - faint rales left base Cardiovascular: RRR Abdominal: NL Sounds; No Tenderness; No Distention, No Hepatosplenomegaly Lymphatic: No Cervical Adenopathy Extremities: No Edema Neurological: Alert and Oriented x 3 Result Diagrams: 02/13/20 04:24 02/14/20 05:34 Assess/Plan/Problems-Billing Assessment: 89 yo M h/o sCHF, HTN pw pain and weakness found with rhabdo - Patient Problems (1) Rhabdomyolysis Comment: Unclear etiology. Had preceeding illness - URI and GI (diarrhea) as well as initiation of new medication entresto followed by myalgias and facial flushing -May be viral in nature or allergy/adverse reaction to entresto -TSH, phosphorous, other electrolytes wnl -check ehrlichia - repeat CK increasing -Normal saline increased to 175cc/hr for 2 additional liters -repeat CK and LFTs in AM -consult rheum and cardiology (2) HTN (hypertension) Comment: HCTZ and metoprolol (3) DVT prophylaxis Comment: lovenox
[2020-02-14] MEDS: NS 0.9% 1000 ML** 400 ML IV SCH (18:22)
[2020-02-14] MEDS: Enoxaparin(*) 40 MG/0.4 ML SYR SUBCUT SCH (18:22)
[2020-02-14] MEDS: Doxazosin TAB* 2 MG PO SCH (21:12)
[2020-02-15] MEDS: NS 0.9% 1000 ML** 400 ML IV SCH (00:25)
[2020-02-15] MEDS: traMADol TAB* 50 MG PO PRN ×2 (02:31→18:03)
[2020-02-15 06:01] LABS: Albumin/Globulin Ratio 1.1 (1-3); BUN/Creatinine Ratio 26.1 (8-20); Calcium 6.9 mg/dL (8.6-10.3); EGFR African American 94.2 (>60); EGFR Non-African American 77.8 (>60); Globulin 1.9 g/dL (2-4); Indirect Bilirubin 0.4 mg/dL (0.3-1.0); Potassium 3.2 mmol/L (3.5-5.0); Total Bilirubin 0.5 mg/dL (0.2-1.0); Total Protein 3.9 g/dL (6.4-8.9)
[2020-02-15] MEDS: NS 0.9% 1000 ML** 1,000 ML IV SCH ×2 (06:25→20:45)
[2020-02-15] MEDS ORDERED: Potassium Chlor TAB* 20 MEQ TAB.ER PO ONE (07:12)
[2020-02-15] MEDS ORDERED: NS 0.9% 1000 ML** 1,000 ML IV SCH (07:14)
[2020-02-15] MEDS: Metoprolol Succinate XL TAB* 25 MG PO SCH (08:11)
[2020-02-15] MEDS: Finasteride TAB* 5 MG PO SCH (08:12)
[2020-02-15] MEDS: Hydrochlorothiazide TAB* 25 MG PO SCH (08:12)
[2020-02-15] MEDS: Aspirin EC TAB* 81 MG TAB.EC PO SCH (08:13)
[2020-02-15 15:09] LABS: Urine Appearance Clear; Urine Bilirubin Negative (Negative); Urine Blood 2+ (Negative); Urine Color Yellow; Urine Glucose Negative (Negative); Urine Ketones Negative (Negative); Urine Nitrite Negative (Negative); Urine Protein Negative (Negative); Urine Specific Gravity 1.018 (1.010-1.030); Urine Urobilinogen Negative (Negative)
[2020-02-15 15:17] LABS: Urine Bacteria 1+ (Absent); Urine Red Blood Cell Trace(0-2/hpf) (Absent); Urine White Blood Cell Absent (Absent)
--- NOTE | 2020-02-15 16:33 | PN ---
Subjective Date of Service: 02/15/20 Interval History: Pain in legs better [place] pain in right lower abdomen but better now No N/V, LH, CP No SOB Objective Active Medications: Aspirin ([facility]spirin Ec Tab*) [facility] Last Admin: 02/15/20 08:13 Dose: 81 mg Docusate Sodium (Colace Cap*) 100 mg PO BID PRN PRN Reason: CONSTIPATION Last Admin: 02/12/20 18:38 Dose: 100 mg Doxazosin Mesylate (Cardura Tab*) 4 mg PO BEDTIME [facility] Last Admin: 02/14/20 21:12 Dose: 4 mg Enoxaparin Sodium (Lovenox(*)) 40 mg SUBCUT Q24H [facility] Last Admin: 02/14/20 18:22 Dose: 40 mg Finasteride (Proscar Tab*) [facility] Last Admin: 02/15/20 08:12 Dose: 5 mg Hydrochlorothiazide (Hydrodiuril Tab*) 12.5 mg PO [facility] Last Admin: 02/15/20 08:12 Dose: 12.5 mg Sodium Chloride (Ns 0.9% 1000 Ml) 1,000 mls @ 100 mls/hr IV PER RATE [facility] Metoprolol Succinate (Toprol Xl Tab*) 12.5 mg PO DAILY [facility] Last Admin: 02/15/20 08:11 Dose: 12.5 mg Tramadol HCl (Ultram*) 50 mg PO Q12H PRN PRN Reason: PAIN - MILD Last Admin: 02/15/20 02:31 Dose: 50 mg Vital Signs - 8 hr 02/15/20 02/15/20 09:55 15:15 Temperature 97.4 F 98.3 F Pulse Rate 62 84 Respiratory 16 20 Rate Blood Pressure 134/57 133/60 (mmHg) O2 Sat by Pulse 99 99 Oximetry Oxygen Devices in Use Now: None Appearance: younger than stated age, NAD Eyes: No Scleral Icterus, PERRLA Ears/Nose/Mouth/Throat: NL Teeth, Lips, Gums, Clear Oropharnyx Neck: NL Appearance and Movements; NL JVP, Trachea Midline Respiratory: Symmetrical Chest Expansion and Respiratory Effort, Clear to Auscultation Cardiovascular: RRR Abdominal: NL Sounds; No Tenderness; No Distention, No Hepatosplenomegaly, - - no TTP in area that he indicated pain in right LQ Extremities: No Edema Skin: - - square shaped rash on right upper back (area of heating pad application at home); Facial erythema sparing forehead and now devloping perioral clearing Neurological: Alert and Oriented x 3 Result Diagrams: 02/13/20 04:24 02/15/20 05:18 Assess/Plan/Problems-Billing Assessment: 89 yo M h/o sCHF, HTN pw pain and weakness found with rhabdo - Patient Problems (1) Rhabdomyolysis Comment: Afternoon CK reflects continued 100cc/hr NS administration. Unclear etiology. Had preceeding illness - URI and GI (diarrhea) as well as initiation of new medication entresto followed by myalgias and facial flushing -Facial rash temporally related and now devloped mahnaz oral clearing 02/14. Unclear significance. Unclear if this is associated with newly depressed EF with normal coronary arteries -May be viral in nature or allergy/adverse reaction to entresto -TSH, phosphorous, other electrolytes wnl -ehrlichia still pending -c/w NS at 100cc -repeat BMP, LFT and CK in AM -repeat CK and LFTs in AM -consult rheum (2) HTN (hypertension) Comment: HCTZ and metoprolol (3) DVT prophylaxis Comment: lovenox
[2020-02-15] MEDS: Enoxaparin(*) 40 MG/0.4 ML SYR SUBCUT SCH (18:03)
--- NOTE | 2020-02-15 18:11 | CONSULT ---
Consult Consult: Mr. Perez is an 89 year old man with non ischemic cardiomyopathy, chronic anemia and pulmonary hypertension who presented with rhabdomyolysis of unclear etiology. History of a possible upper respiratory infection and possible GI illness in January and recent trial of Entresto Although CK remains elevated, he exhibits no muscular weakness and generally feels that he is improving. Consider a possible viral etiology? Given rash, consider connective tissue disorder? Drug induced etiology seems less likely. He denied trying red rice yeast extract or other supplements. Will check CTD and viral serologies. Check myomarker panel. Continue supportive care, gentle hydration. Would not get a muscle biopsy at this point especially as he is clinically improving. Will follow; thanks!
[2020-02-15 19:12] LABS: Rheumatoid Factor < 10 IU/mL (<15)
[2020-02-15 19:16] LABS: Myoglobin 1033.7 ng/mL (17.4-105.7)
[2020-02-15] MEDS: Doxazosin TAB* 2 MG PO SCH (19:43)
--- NOTE | 2020-02-15 21:46 | CONS ---
CONSULTATION REPORT: DATE OF CONSULT: 02/15/20 CONSULTING PHYSICIAN: Dr. Martir Case. REASON FOR CONSULTATION: Evaluate for cause of myositis. CHIEF COMPLAINT: Weakness. HISTORY OF PRESENT ILLNESS: Mr. Perez is a pleasant 89-year-old male with history of a nonischemic cardiomyopathy with the depressed ejection fraction. He was admitted for rhabdomyolysis of unknown etiology when he presented with diffuse muscle ache and has subjective weakness and was found to have repeatedly elevated CK levels. The etiology of his rhabdomyolysis was unclear but he did have a temporary facial rash raising concern for possible underlying rheumatologic cause of his symptoms. In terms of his history, he has been seeing Cardiology as an out patient as well as his primary care doctor. He was in his usual state of health until approximately the 13 of last month when he developed some symptoms of an upper respiratory infection including a cough, sore throat and congestion. He also had diarrhea. His has similar illness. Many of his symptoms improved but the diarrhea persisted. A cardiac catheterization on the showed no significant coronary artery disease and he was started on Entresto the day after on 01/29/20. However, the day after starting the Entresto and the left heart cath, he did began to have a flushing red face associated with generalized puffiness and had diffuse achiness in his quadriceps as well as his back and shoulders and diffuse pain allover. He was found to have an elevated CK of 2680 that actually cyndie to 3086 on 02/08/20. Because of this rise and his persistent muscle aching and fatigue, he was sent emergently to the ER. Since he has been hospitalized, he has been gently hydrated give his cardiac status and symptomatically he feels much better, although he does have a history of a temporary facial rash as noted above and he has also had some mild lower quadrant abdominal discomfort which is although more present on the right side but it is not severe. Otherwise, he has been feeling better and feeling generally stronger since his hospital stay has started. In terms of cardiac history, he has a history of congestive heart failure and edema. He had an echo which showed an EF of 30% to 35% with an inferior and inferoseptal champoin most prominently hypokinetic. He also had mild MR, mild to moderate aortic regurgitation, mild mitral valve stenosis and moderately dilated descending aorta with mild concentric LVH. He has also had moderate to severe pulmonary hypertension with the PA pressure of 56. In terms of his cardiac history, he had been on amlodipine in the past and was more recently started on torsemide with an improvement of his edema. This was done as an outpatient. The CT scan of the abdomen on 12/28/19 revealed small bilateral pleural effusions and cardiomegaly, mild thickening of the gallbladder , enlarged prostate, diverticulosis and fatty liver infiltration. He has had no syncope, near syncope, chest pain or orthopnea. He does use 1 pillow at night. He also had a low iron at 34. In terms of his past GI history, he has seen Dr. Sheikh from GI and has had an upper endoscopy which revealed mild gastritis. A prior colonoscopy several years ago was unremarkable. 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 He has had a history of bradycardia, right bundle branch block since January of 2015, hypertension with the pleural effusion noted on gallbladder ultrasound and chest x-ray. Chest x-ray on revealed small bilateral pleural effusions and right bibasilar atelectasis versus consolidation, gastroesophageal reflux disease is also in his history and he had pleural effusions that resolved in July 2019. 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 He has a history of microcytic anemia of unclear etiology in 2014 and 2015, possibly thalassemia related. He also has a history of nonmelanoma cancer, basal cell carcinoma. He has chronically impaired hearing and requires a hearing aide. PAST SURGICAL HISTORY: Includes hemorrhoidectomy, cataract surgery bilaterally in 2008, hip replacement in 2015, carpal tunnel release by Dr. Qunitero and had EGD showing minimal gastritis. In terms of his prior cardiac testing, he had an echo in January 2020 which showed left ventricle mildly dilated, mildly concentric hypertrophy of the left ventricle with visual EF of 35%. He has Doppler evidence of grade 2 diastolic dysfunction with left ventricle regional wall motion abnormalities with basal anterolateral, mild anterolateral and mild inferior and mid inferoseptal involvement. His right atrium was also moderately dilated with the right ventricular cavity mild to moderately dilated. He had a buckland trileaflet aortic valve with mild to moderate regurgitation with moderate to severe pulmonary hypertension with the pressure averaging at 56 mmHg with buckland pulmonary valve with moderate regurgitation, diastolic pulmonary predominance, interval decrease in ejection fraction by 55% in March of 2019. He had an abnormal cardiac stress nuclear test with a small moderate size inferior wall infarct without significant reversibility in April of 2019 with an echo in March of 2019 showing mild dilatation of the left ventricle as well as other findings. HOME MEDICATIONS: Include: 1. Aspirin 81 mg. 2. Doxazosin 4 mg in the evening. 3. Finasteride 5 mg in the evening. 4. Hydrochlorothiazide 12.5 mg. 5. Metoprolol succinate 12.5 mg. 6. Entresto 24/26 mg. ALLERGIES: Include BEE VENOM, PROTEIN, and PROCAINE. FAMILY HISTORY: Notable for heart disease. His father due to stroke at the age of 80. Mother due to advancing age. He has had 7 siblings , four brothers with known cardiac issues. SOCIAL HISTORY: He is . He lives with his spouse. 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 He has 5 adult children. He has never smoked. He denies any drug use. He denied alcohol use. Caffeine; he has been consuming up to 2 regular cups of coffee per day. Exercises sporadically. Never smoked though. PHYSICAL EXAM: He is a pleasant male, in no acute distress, sitting up. He was conversive with a blood pressure of 118/62, pulse of 48 to 50 some radial skipped beats, well developed in no acute distress. Neck: JVP elevation 8 to 10 cm. Cardiac exam revealed normal S1 and S2 with a 1/4 diastolic murmur at the left upper sternal border. Lungs were clear to auscultation bilaterally. Extremities revealed no significant edema. Abdomen: Soft, nontender, nondistended. Positive bowel sounds with no organomegaly, minimal right lower quadrant tenderness with no rebound or guarding. No hip discomfort or restriction. On skin exam, he had mild facial rash which is very minimal. Neurologic exam, 5/5 motor strength in the upper and lower extremities in the biceps, triceps and posterior tibialis pulses were normal. Reflexes were 2+ in upper and lower extremities. Musculoskeletal: No synovitis, mild osteoarthritic deformities of the knees. On skin exam, he had minimal facial erythema, but no shawl sign. DIAGNOSTIC STUDIES/LAB DATA: He had a sed rate of 27, hemoglobin of 12.3, AST of 211 which went to 227 on 02/15/20, ALT of 59 which went to 63. He had a total CPK of 3256 on the 02/13/20 which went up to 4453 on 02/14/20 and now is 4249. It does persists in terms of its elevation. He had urinalysis showing 1 + bacteria and 2+ blood but was otherwise negative. His creatinine was initially 1.09, now 0.92 and TSH is normal at 1.31. ASSESSMENT AND PLAN: Mr. Perez is an 89-year-old male with a history of rhabdomyolysis with persistent elevation of his CPK that has continued despite gentle hydration, symptomatically he is feeling better. He did of note have some prior possible infectious events including an upper respiratory infection and diarrhea which may have precipitated some kind of reactive process. There is some question about whether there could have been reaction to Entresto but this is not a commonly implicated medication in terms of drug-induced autoimmune conditions or drug-induced lupus. He also has a history of pulmonary hypertension in the setting of his depressed ejection fraction with normal coronary arteries with a nonischemic cardiomyopathy. Considering underlying viral condition, considering autoimmune condition, we will check his MyoMarker panels including a Jennifer-1 antibody, consider the possibility of dermatomyositis, however, symptomatically, he is improving which makes the chronic autoimmune connective tissue disorder less likely. It is possible that his CPK will gradually resolve over time and there is some delay in terms of the serologic improvement as he improves. Consider as well underlying environmental or viral etiologies. We will check a CMV. Consider checking for carcinoid given his facial flushing and also would follow his CPK for improvement. We will screen for a connective tissue disorder. Continue supportive care for now. At this point, as he clinically seems to be improving and he has no muscle weakness and I cannot elicit any muscle weakness and in deed he was able to sit at the side of the bed without difficulty, and so at this point I would not pursue a muscle biopsy at this point, but we will continue to follow. If he develops a very prominent rash, a skin biopsy could be helpful, given the relationship between cutaneous and muscle autoimmune/ inflammatory disease [id number]/[facility] #: [id number] [facility]ICAL CENTERFavian
[2020-02-16 04:45] LABS: Albumin 1.8 g/dL (3.2-5.2); Anion Gap 5 mmol/L (2-11); CO2 Carbon Dioxide 20 mmol/L (22-32); Calcium 6.5 mg/dL (8.6-10.3); Chloride 110 mmol/L (101-111); Indirect Bilirubin 0.3 mg/dL (0.3-1.0); Potassium 3.9 mmol/L (3.5-5.0); Sodium 135 mmol/L (135-145)
[2020-02-16 04:51] LABS: ALT 63 U/L (7-52); AST 217 U/L (13-39); Albumin/Globulin Ratio 0.9 (1-3); Alkaline Phosphatase 55 U/L (34-104); BUN/Creatinine Ratio 24.7 (8-20); Blood Urea Nitrogen 22 mg/dL (6-24); EGFR African American 97.8 (>60); EGFR Non-African American 80.9 (>60); Glucose 86 mg/dL (70-100); Total Protein 3.8 g/dL (6.4-8.9)
[2020-02-16 05:53] LABS: Creatine Kinase 3473 U/L (10-223)
[2020-02-16] MEDS: NS 0.9% 1000 ML** 1,000 ML IV SCH ×2 (08:05→20:46)
[2020-02-16] MEDS: Finasteride TAB* 5 MG PO SCH (08:07)
[2020-02-16] MEDS: Aspirin EC TAB* 81 MG TAB.EC PO SCH (08:07)
[2020-02-16] MEDS: Hydrochlorothiazide TAB* 25 MG PO SCH (08:09)
[2020-02-16] MEDS: Metoprolol Succinate XL TAB* 25 MG PO SCH (08:09)
[2020-02-16 08:44] LABS: Magnesium 1.7 mg/dL (1.9-2.7)
[2020-02-16] MEDS: traMADol TAB* 50 MG PO PRN (09:14)
[2020-02-16] MEDS: Docusate CAP* 100 MG PO PRN (09:14)
[2020-02-16] MEDS ORDERED: Magnesium Sulfate IV* 3 GM in NS 0.9% 100 ML* 100 ML IVPB ONE (10:36)
[2020-02-16 12:48] LABS: C Reactive Protein 22.79 mg/L (<8.01)
[2020-02-16 13:16] LABS: Ferritin > 1500.0 ng/mL (24-336)
[2020-02-16] MEDS: Doxazosin TAB* 2 MG PO SCH (20:46)
[2020-02-16] MEDS: Enoxaparin(*) 40 MG/0.4 ML SYR SUBCUT SCH (20:47)
[2020-02-17] MEDS: NS 0.9% 1000 ML** 1,000 ML IV SCH (06:35)
--- NOTE | 2020-02-17 07:36 | PN ---
Subjective Date of Service: 02/16/20 Interval History: Mr. Perez reports that he continues to feel terrible. He complains of muscle aches. He confirms that he has a long course of illness and workup for cardiac issues over the past few weeks. He did have a URI with sore throat and diarrhea back in January. 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 He denies any known sick contacts or recent travel. 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 His was sick with what was described by her as pneumonia, treated with two rounds of antibiotics. She is now feeling better. Objective Active Medications: Aspirin (Aspirin Ec Tab*) 81 mg PO QAM [facility] Docusate Sodium (Colace Cap*) 100 mg PO BID PRN Doxazosin Mesylate (Cardura Tab*) 4 mg PO BEDTIME [facility] Enoxaparin Sodium (Lovenox(*)) 40 mg SUBCUT Q24H [facility] Finasteride (Proscar Tab*) 5 mg PO QAM S Hydrochlorothiazide (Hydrodiuril Tab*) 12.5 mg PO QAM [facility] Sodium Chloride (Ns 0.9% 1000 Ml) 1,000 mls @ 100 mls/hr IV PER RATE [facility] Metoprolol Succinate (Toprol Xl Tab*) 12.5 mg PO DAILY [facility] Tramadol HCl (Ultram*) 50 mg PO Q12H PRN Vital Signs - 8 hr 02/17/20 02:45 Temperature 97.8 F Pulse Rate 75 Respiratory 16 Rate Blood Pressure 135/72 (mmHg) O2 Sat by Pulse 98 Oximetry Oxygen Devices in Use Now: None Appearance: Male lying in bed in NAD, at bedside Respiratory: Symmetrical Chest Expansion and Respiratory Effort, - - Few minimal crackles in R base, clears with deep breaths Cardiovascular: - - Minimal LE edema Abdominal: NL Sounds; No Tenderness; No Distention Skin: - - Face vero and flushed Neurological: Alert and Oriented x 3, NL Muscle Strength and Tone Nutrition: Taking PO's Result Diagrams: 02/13/20 04:24 02/16/20 04:14 Assess/Plan/Problems-Billing Assessment: 89 yo M h/o sCHF, HTN pw pain and weakness found with rhabdo and myalgias of suspected viral etiology. - Patient Problems (1) Rhabdomyolysis Comment: - CK essentially unchanged, continues to complain of terrible myalgias. - Unclear etiology. Had preceeding illness - URI and GI (diarrhea) as well as initiation of new medication entresto followed by myalgias and facial flushing - Appreciate rheum consult, labs still pending. Most suspicious for viral etiology. Plan to add covid-19 rule out. - Ferritin remains dramatically elevated as well. CRP falling. -TSH, phosphorous, other electrolytes wnl -c/w NS at 100cc -repeat BMP, LFT and CK in AM (2) Ischemic cardiomyopathy Comment: - Asymptomatic - EF 30-35% - Continue metoprolol - Monitor fluid status closely (3) HTN (hypertension) Comment: - BP well controlled - Continue HCTZ and metoprolol (4) BPH (benign prostatic hyperplasia) Comment: Continue finasteride, doxazosin (5) DVT prophylaxis Comment: lovenox Status and Disposition: Inpatient. Anticipate discharge to home when medically stable.
[2020-02-17 08:50] LABS: Myoglobin 849.6 ng/mL (17.4-105.7)
[2020-02-17] MEDS: Aspirin EC TAB* 81 MG TAB.EC PO SCH (10:22)
[2020-02-17] MEDS: Hydrochlorothiazide TAB* 25 MG PO SCH (10:22)
[2020-02-17] MEDS: Finasteride TAB* 5 MG PO SCH (10:22)
[2020-02-17] MEDS: Metoprolol Succinate XL TAB* 25 MG PO SCH (10:23)
[2020-02-17] MEDS: Docusate CAP* 100 MG PO PRN (10:23)
[2020-02-17] MEDS: traMADol TAB* 50 MG PO PRN (10:24)
[2020-02-17 12:28] LABS: JO-1 Antibody <0.2 U
[2020-02-17 14:38] LABS: Cytomegalovirus IgG Antibody Positive (Negative)
[2020-02-17 16:05] LABS: Cyclic Citrullinated Peptide <15.6 U
[2020-02-17 16:09] LABS: Anaplasma phagocytophilum Negative (Negative); Ehrlichia chaffeensis Negative (Negative); Ehrlichia ewingii/canis Negative (Negative); Ehrlichia muris eauclairensis Negative (Negative)
[2020-02-17] MEDS: Enoxaparin(*) 40 MG/0.4 ML SYR SUBCUT SCH (18:32)
--- NOTE | 2020-02-17 19:02 | PN ---
Subjective Date of Service: 02/17/20 Interval History: Pt feels not really any better than when he presented to the ER. He describes feeling weak in his shoulders and he describes pain in his back. Objective Active Medications: Aspirin (Aspirin Ec Tab*) 81 mg PO QAM [facility] Last Admin: 02/17/20 10:22 Dose: 81 mg Docusate Sodium (Colace Cap*) 100 mg PO BID PRN PRN Reason: CONSTIPATION Last Admin: 02/17/20 10:23 Dose: 100 mg Doxazosin Mesylate (Cardura Tab*) 4 mg PO BEDTIME [facility] Last Admin: 02/16/20 20:46 Dose: 4 mg Enoxaparin Sodium (Lovenox(*)) 40 mg SUBCUT Q24H [facility] Last Admin: 02/17/20 18:32 Dose: 40 mg Finasteride (Proscar Tab*) 5 mg PO QAM [facility] Last Admin: 02/17/20 10:22 Dose: 5 mg Hydrochlorothiazide (Hydrodiuril Tab*) 12.[facility] [place] Last Admin: 02/17/20 10:22 Dose: 12.5 mg Sodium Chloride (Ns 0.9% 1000 Ml) 1,000 mls @ 100 mls/hr IV PER RATE [facility] Last Admin: 02/17/20 06:35 Dose: 100 mls/hr Metoprolol Succinate (Toprol Xl Tab*) 12.5 mg PO DAILY [facility] Last Admin: 02/17/20 10:23 Dose: 12.5 mg Tramadol HCl (Ultram*) 50 mg PO Q12H PRN PRN Reason: PAIN - MILD Last Admin: 02/17/20 10:24 Dose: 50 mg Vital Signs - 8 hr 02/17/20 16:31 Temperature 98.6 F Pulse Rate 75 Respiratory 20 Rate Blood Pressure 126/66 (mmHg) O2 Sat by Pulse 99 Oximetry Oxygen Devices in Use Now: None Appearance: Elderly male lying in bed, NAD Eyes: No Scleral Icterus Ears/Nose/Mouth/Throat: Mucous Membranes Moist Respiratory: Symmetrical Chest Expansion and Respiratory Effort, Clear to Auscultation Cardiovascular: NL Sounds; No Murmurs; No JVD, RRR, No Edema Abdominal: NL Sounds; No Tenderness; No Distention Skin: - - face is erythematous Neurological: Alert and Oriented x 3 Result Diagrams: 02/13/20 04:24 02/16/20 04:14 Microbiology and Other Data: Microbiology 02/15/20 07:14 Urine Culture - Final Urine No Growth (<1,000 CFU/mL) Assess/Plan/Problems-Billing Mr Perez is an 89 yo M h/o sCHF, HTN pw pain and weakness found with rhabdo and myalgias of suspected viral etiology. Status and Disposition: Inpatient. Anticipate discharge to home when medically stable.
[2020-02-17] MEDS: Doxazosin TAB* 2 MG PO SCH (21:31)
[2020-02-18] MEDS: NS 0.9% 1000 ML** 1,000 ML IV SCH ×2 (02:59→07:27)
[2020-02-18] MEDS: traMADol TAB* 50 MG PO PRN ×2 (02:59→14:36)
[2020-02-18] MEDS: Finasteride TAB* 5 MG PO SCH (08:18)
[2020-02-18] MEDS: Metoprolol Succinate XL TAB* 25 MG PO SCH (08:18)
[2020-02-18] MEDS: Aspirin EC TAB* 81 MG TAB.EC PO SCH (08:18)
[2020-02-18] MEDS: Docusate CAP* 100 MG PO PRN (08:18)
[2020-02-18] MEDS: Hydrochlorothiazide TAB* 25 MG PO SCH (08:18)
[2020-02-18 12:24] VITALS: BP 135/71
[2020-02-18 19:20] LABS: Complement C3 89 mg/dL (75 - 175)
--- NOTE | 2020-02-18 23:30 | DS ---
CC: Dr. Martin; Dr. Bowen * DISCHARGE SUMMARY: DATE OF ADMISSION: 02/13/20 DATE OF DISCHARGE: 02/18/20 PRIMARY CARE PROVIDER: Dr. Martin. POSTAL SERVICE CLERK: Dr. Oquendo. CARE TEAM COORDINATOR SCHEDULER: Dr. Bowen. PRINCIPAL DIAGNOSES: 1. Elevated creatinine phosphokinase of unknown significance or cause. 2. Nonischemic cardiomyopathy. SECONDARY DIAGNOSES: 1. Hypertension. 2. Right bundle-branch block. 3. Benign prostatic hypertrophy. 4. Gastroesophageal reflux disease. 5. Fatty liver. 6. Iron deficiency anemia. 7. Gout. DISCHARGE MEDICATIONS: 1. Tramadol 50 to 100 mg p.o. q.12 hours p.r.n. pain. 2. Metoprolol XL 12.5 mg p.o. daily. 3. Amoxicillin 2000 mg p.o. p.r.n. dental procedure. 4. Hydrochlorothiazide 12.5 mg p.o. daily. 5. Finasteride 5 mg p.o. daily. 6. Doxazosin 4 mg p.o. q.h.s. 7. Aspirin 81 mg p.o. daily. 8. Prednisone 20 mg p.o. daily (new). HOSPITAL COURSE: Mr. Perez is an 89-year-old male who was sent in to the emergency room for evaluation of an elevated total CPK. The patient was recently identified to have a newly depressed left ventricular ejection fraction. He underwent catheterization. In mid January, he developed cough, sore throat, and congestion. He was started on contrast Entresto on 01/29/20; however, after starting the Entresto he developed flushing of the face along with pain in his bilateral quadriceps, back, and shoulders. He was found to have an elevated CPK of 2680, which was repeated and was elevated. Because of that persistent elevation of CPK, the patient was sent to the emergency room for evaluation. The etiology of this rhabdomyolysis was felt to be unknown on admission. It is questioned if this may have been related to Entresto versus viral illness that seemed to affect the patient in mid January. He was treated with IV fluid hydration. His CPK did not improve. The patient was seen in consultation by Dr. Bowen, who recommended evaluation for an autoimmune condition. I felt that this could be secondary to be initiation of Entresto; however, that is not a commonly implicated medication. Viral illness precipitating this was also considered. The patient was to be screened for connective tissue disorder. Dr. Bowen ordered respiratory viral panel, which was negative. Influenza A and B was negative. [place] virus PCR is pending. CMV IgG is positive but IgM is negative. Parvovirus IgG is positive, IgM again is negative. RSV is negative. Rheumatoid factors less than 10. CCT less than 15.6. MELLISSA 0.2. PR3 less than 0.2. Myeloperoxidase antibody less than 0.2. Jennifer -1 antibody less than 0.2. Ovnx-lhkfxj-cfsntgfy DNA IgG antibody less than 12.3. C3 89, C4 28. Given all of the negative testing, Dr. Bowen reached out to be on the day of discharge. He did question whether or not the patient may benefit from initiating prednisone 20 mg daily, which would be a PMR dose. At this point, as the patient was not improving nor worsening, it is questioned whether or not he needed to remain in the hospital. He is getting around well. His breathing is comfortable. It was felt that the patient could be discharged home on 20 mg of prednisone daily, to follow up with Dr. Bowen. As noted above, the patient did have COVID-19 testing sent. It is unlikely that this will return positive; however, the patient is to remain in isolation until this result is back. He understands that the Department of Health will be contacting him with result. Once that test result is back, the patient should follow up with Dr. Bowen. I explained all of this in detail to the patient's . PHYSICAL EXAMINATION: On the day of discharge, the patient is awake, alert, and oriented; sitting up on the edge of the bed in no acute distress. Cardiac exam reveals a normal S1, S2 with a regular rate and rhythm. Lungs are clear. Abdomen is soft, nontender, nondistended. He is moving all 4 extremities symmetrically. There is no patchy rash noted on the patient's limbs or torso. He does have confluent erythema to the face. FOLLOWUP CONCERNS: The patient is being discharged home today, 02/18/20. ACTIVITY LEVEL: As tolerated. DIET: Heart healthy. CONDITION ON DISCHARGE: Stable. TIME SPENT: Thirty-five minutes was spent discharging this patient. [id number]/[facility] #: [id number] [facility]
== END 2020-02-18 14:30 | disposition home or self-care (01) | DRG 558 ==
LOC: ED 15:09 → MED 18:50 → OBSVTOIN 02-13 08:38 → MED 02-13 11:02
PROVIDERS: ADMIT Internal Medicine; ATTEND Hospitalist
DX: M62.82 Rhabdomyolysis (principal); I50.20 Unspecified systolic (congestive) heart failure; I42.8 Other cardiomyopathies; K21.9 Gastro-esophageal reflux disease without esophagitis; N40.0 Benign prostatic hyperplasia without lower urinary tract symptoms; G89.29 Other chronic pain; D50.9 Iron deficiency anemia, unspecified; M10.9 Gout, unspecified; I11.0 Hypertensive heart disease with heart failure; M79.659 Pain in unspecified thigh; K76.0 Fatty (change of) liver, not elsewhere classified; R82.998 Other abnormal findings in urine; M17.0 Bilateral primary osteoarthritis of knee; I45.10 Unspecified right bundle-branch block; Z96.641 Presence of right artificial hip joint; Z79.82 Long term (current) use of aspirin; Z79.899 Other long term (current) drug therapy; Z88.8 Allergy status to other drugs, medicaments and biological substances; Z91.030 Bee allergy status; Z82.49 Family history of ischemic heart disease and other diseases of the circulatory system; Z82.3 Family history of stroke
CPT/HCPCS: 36415; 71045; 80048; 80053; 80076; 81003; 81015; 82164; 82550; 82728; 83516; 83735; 83874; 84100; 84260; 84443; 85025; 85652; 86038; 86140; 86160; 86200; 86225; 86235; 86431; 86644; 86645; 86747; 87086; 87497; 87798; 93005; 96372; 99284; A9270-GY; G0378; J1650; J3475; J7512

== ENCOUNTER 2020-02-25 03:00 | Inpatient (IN) | payer MEDICARE, BC, OTHER ==
[2020-02-25] MEDS ORDERED: NS 0.9% 1000 ML** 1,000 ML IV ONE (03:37)
--- OUTSIDE RECORDS SUMMARY | 2020-02-25 04:05 | XMS REPORT | Continuity of Care Document ---
:1930 External Reference #:[id number] Author Name Serenity Martin M.D. (transmitted by agent of provider Bessie Quiroz) Address [address] [facility], [place] [address] Care Team Providers Name Role Phone [facility] Care Team Information Manager Floor [place] - Physical Therapist Serenity Martin MD - Internal Care Team Information Manager Floor Medicine Bao Rodney MD - Cardiovascular Care Team Information Manager Floor Disease Julien Sheikh MD - Gastroenterology Care Team Information Manager Floor [phone] Problems Active Problems Provider Date Edema of [...] Indications Ordering Date Provider Tramadol HCL 1-2 tablets by 42tabs Serenity 02/19/2020 50mg Tablets mouth every 6 Kelsey Martin hours as needed pain Prednisone Every Day 20tabs Unknown 02/18/2020 20mg Tablets Aspir-Low 1 by mouth I82.402 Bao Piedra 01/14/2020 81mg Tablets every day Kelsey Rodney Compression Stockings thigh high, 1Pair R60.0 Serenity [...] Gilliland, 5mg Tablets every day History Medications Entresto take 1 tab by 60tabs Bao Piedra 01/29/2020 - 24-26mg mouth twice daily Kelsey Rodney 02/19/2020 Tablets On Hold 02/08/20 Torsemide Every Day Unknown 01/27/2020 - 20mg 02/12/2020 Tablets G-1 Every Day Unknown 01/19/2020 - 325mg Capsules 02/12/2020 Aspirin Ec Low Dose Every Morning Unknown 01/18/2020 - 02/19/2020 81mg Tablets Lisinopril 1 by mouth every 90tabs Bao Piedra 01/14/2020 - 5mg day Kelsey Rodney 01/29/2020 Tablets Torsemide 1/2 tablet by 90tabs Bao Piedra 01/14/2020 - 10mg mouth as needed Kelsey Rodney 02/01/2020 Tablets for weight of 172 or higher with edema take only once in 24 hours unless otherwise directed. Tramadol HCL 1-2 tab every 12 28tabs Geno Clemens 12/25/2019 - 50mg hours as needed Kelsey 02/01/2020 Tablets for pain Feraheme feraheme infusion 2doses D50.9 Bao Piedra 12/23/2019 - 510mg/17ML 510 mg 2 doses Kelsey Rodney 01/19/2020 Solution total first infusion followed by a second infusion in a week Eliquis 1 by mouth twice 60tabs I82.402 Bao Piedra 12/21/2019 - 5mg Tablets a day Kelsey Rodney 01/14/2020 Medications Administered in Office Medication SIG Qnty Indications Ordering Provider Date Triamcinolone (Kenalog) Geno Clemens M.D. 12/07/2019 Injection Technetium TC 99M Golden Champagne, DO [facility] 04/20/2019 Tetrofosmin, Per Unit Dose Up To 40 Millicuries Injection Technetium TC 99M Golden Champagne, DO [facility] 04/20/2019 Tetrofosmin, Per Unit Dose Up To 40 Millicuries Injection [facility] pharmacy Unknown 03/26/2019 administered Injection Depomedrol 40MG Geno Clemens M.D. 11/18/2017 Injection Synvisc Or Synvisc-One Geno Clemens M.D. 01/02/2017 Injection 1 MG Injection Synvisc Or Synvisc-One Geno Clemens M.D. 12/26/2016 Injection 1 MG Injection Synvisc Or Synvisc-One Geno Clemens M.D. 12/19/2016 Injection 1 MG Injection Inj, Regadenoson, 0.1 MG John Arensa M.D. 11/02/2016 Injection Technetium TC 99M John [...] CPT Code Status Date Vaccine Lot # [id number] Given 09/25/2019 Influenza Virus Vaccine, Quadrivalent, Split, Preservative Free [id number] Given 09/24/2018 Influenza Virus Vaccine, Quadrivalent, Split, Preservative Free 50181 Given 09/23/2017 Influenza Virus Vaccine, Quadrivalent, Split, [id number] Preservative Free 52686 Given 09/23/2017 Pneumococcal Conjugate Vaccine 13 Valent For [id number] Intramuscular Use Vital Signs Date Vital Result [...] Test Result H/L Range Note Comp Metabolic 02/12/2020 [facility] Sodium 137 mmol/L Normal 135-[address] [place] [address] [phone] Potassium 3.4 mmol/L Low 3.5-5.0 Chloride 106 mmol/L Normal 101-111 Co2 Carbon Dioxide 25 mmol/L Normal 22-32 Anion Gap 6 mmol/L Normal 2-11 Glucose 105 mg/dL High 70-100 Blood Urea Nitrogen 29 mg/dL High 6-24 Creatinine 1.09 mg/dL Normal 0.67-1.17 BUN/Creatinine Ratio 26.6 High 8-20 Calcium 7.7 mg/dL Low 8.6-10.3 Total Protein 4.6 g/dL Low 6.4-8.9 Albumin 2.5 g/dL Low 3.2-5.2 Globulin 2.1 g/dL Normal 2-4 Albumin/Globulin Ratio 1.2 Normal 1-3 Total Bilirubin 0.40 mg/dL Normal 0.2-1.0 Alkaline Phosphatase 56 U/L Normal 34-104 Alt 55 U/L High 7-52 Ast 191 U/L High 13-39 Egfr Non- 64.0 >60 Egfr 77.4 >60 1 Laboratory test 02/12/2020 [facility] Creatine 3114 U/L High 10-[address] Kinase(CK) [place], [place] [id number] [phone] Lipid Profile 02/12/2020 [facility] Triglycerides 128 2 (Trig/Chol/HDL) [address] mg/dL [place], [place] [id number] [phone] Cholesterol 169 mg/dL 3 HDL Cholesterol 57.9 mg/dL 4 LDL Cholesterol 86 mg/dL 5 Comp Metabolic 02/12/2020 [facility] Sodium 138 mmol/L Normal 135-[address] [place], [place] [address] [phone] Potassium 3.6 mmol/L Normal 3.5-5.0 Chloride 104 [...] Egfr Non- 63.3 >60 Egfr 76.6 >60 6 CBC Auto 02/12/2020 [facility] White Blood 5.2 10^3/uL Normal 3.5-10.[address] Count [place], [place] [address] [phone] Red Blood Count 5.52 10^6/uL High 4.18-5.48 [...] Blood Cells % 0.1 Urinalysis Profile 02/12/2020 [facility] Urine Color Yellow [address] [place] [address] [phone] Urine Appearance Clear Urine Specific Hazel 1.020 Normal 1.010-1.030 Urine pH 6 Normal 5-9 Urine Urobilinogen Negative Negative Urine Ketones Negative Negative Urine Protein 1+(30 mg/dL) Abnormal Negative Urine Leukocytes Negative Negative Urine Blood Negative Negative Urine Nitrite Negative Negative Urine Bilirubin Negative Negative Urine Glucose Negative Negative Laboratory test 02/12/2020 [facility] C Reactive 22.69 mg/L High <8.[address] [place] [address] [phone] Creatine Kinase(CK) 3086 U/L High 10-223 Erythrocyte Sed Rate 19 mm/Hr Normal 0-19 Ferritin > 1500.0 ng/mL High 24-336 7 Influenza A & B 02/08/2020 [facility] Flu AB Disclaimer (SEE NOTE) [address] [place] [address] [phone] Influenza A Molecular Negative Negative Influenza B Molecular Negative Negative 9 Laboratory test 02/08/2020 [facility] C Reactive 12.59 mg/L High <8.[address] [place] [address] [phone] Erythrocyte Sed Rate 12 mm/Hr Normal 0-19 TSH (Thyroid Stim Horm) 1.88 mcIU/mL Normal 0.34-5.60 Comp Metabolic Panel 02/08/2020 [facility] Sodium 134 mmol/L Low 135-[address] [place] [address] [phone] Potassium 4.0 mmol/L Normal 3.5-5.0 Chloride 101 [...] Egfr Non- 65.4 >60 Egfr 79.1 >60 10 Laboratory test 02/08/2020 [facility] Creatine 2680 U/L High 10-223 finding [address] [facility] Kinase(CK) [place] [address] [phone] CBC Auto Diff 02/08/2020 [facility] White Blood 5.5 Normal 3.5 -10.[address] Count 10^3/[place] [address] [phone] Red Blood Count 5.31 10^6/uL Normal 4.18-5.48 [...] % Nucleated Red Blood Cells % 0.1 Basic Metabolic 01/28/2020 [facility] Sodium 133 mmol/L Low 135-[address] [place], [place] [phone] Chloride 101 mmol/L Normal 101-111 Co2 Carbon Dioxide 28 mmol/L Normal 22-32 Glucose 81 mg/dL Normal 70-100 Blood Urea Nitrogen 17 mg/dL Normal 6-24 Creatinine 1.03 mg/dL Normal 0.67-1.17 BUN/Creatinine Ratio 16.5 Normal 8-20 Calcium 8.2 mg/dL Low 8.6-10.3 Egfr Non- 68.3 >60 Egfr 82.7 >60 11 Potassium 4.2 mmol/L Normal 3.5-5.0 Anion Gap 4 mmol/L Normal 2-11 Cath Panel 01/25/2020 [facility] Partial 28.1 seconds Normal 26.0-38.[address] [place] [address] [phone] CBC Auto 01/25/2020 [facility] White Blood 4.3 10^3/uL Normal 3.5-10.[address] [place] [address] [phone] Red Blood Count 5.07 10^6/uL Normal 4.18-5.48 [...] Red Blood Cells % 0.0 Inr/Protime 01/25/2020 [facility] Inr 0.99 Normal 0.82-1.09 12 [address] [place] [address] [phone] Basic Metabolic 01/25/2020 [facility] Sodium 134 mmol/L Low 135-145 Panel [address] [place] [address] [phone] Potassium 4.0 mmol/L Normal 3.5-5.0 Chloride 101 mmol/L Normal 101-111 Co2 Carbon Dioxide 27 mmol/L Normal 22-32 Anion Gap 6 mmol/L Normal 2-11 Glucose 104 mg/dL High 70-100 Blood Urea Nitrogen 26 mg/dL High 6-24 Creatinine 1.21 mg/dL High 0.67-1.17 BUN/Creatinine Ratio 21.5 High 8-20 Calcium 8.0 mg/dL Low 8.6-10.3 Egfr Non- 56.7 >60 Egfr 68.6 >60 13 Laboratory test 01/19/2020 [facility] Clotest SEE RESULT [address] [place] [address] [phone] Stool Occult Blood 01/19/2020 [facility] Stool SEE RESULT [address] [address] Blood, Diag [phone] Protein 01/19/2020 [facility] Total 5.2 g/dL Abnormal 6.[address] Protein([place] [address] ) 7.9 [phone] Albumin 2.6 g/dL Abnormal 3.4-4.7 Alpha-1 Globulin 0.2 g/dL 0.1-0.3 Alpha-2 Globulin 0.9 g/dL 0.6-1.0 Beta Globulin 0.7 g/dL 0.7-1.2 Gamma Globulin 0.7 g/dL 0.6-1.6 Albumin/Globulin Ratio 1.01 Impression See Comment 16 Laboratory test 01/19/2020 [facility] Erythropoietin 5.9 mIU/mL 2.6 - [address] 18.5 [place] [address] [phone] Iron & Iron 01/19/2020 [facility] Iron 34 g/dL Low 50-[address] Capacity [place], [place] [address] [phone] Unsaturated Iron Binding < 161 g/dL Total Iron Binding Capacity 176 g/dL Low 250-450 Transferrin 126 mg/dL Low 203-362 % Iron Saturation 19 % Normal 15-55 CBC No Diff 01/19/2020 [facility] White Blood 5.3 10^3/uL Normal 3.5-10.[address] [place] [address] [phone] Red Blood Count 4.93 10^6/uL Normal 4.18-5.48 Hemoglobin 12.5 g/dL Low 14.0-18.0 Hematocrit 38 % Low 42-52 Mean Corpuscular Volume 78 fL Low 80-94 Mean Corpuscular Hemoglobin 25 pg Low 27-31 Mean Corpuscular HGB Conc 33 g/dL Normal 31-36 Red Cell Distribution Width 15 % Normal 10-15 Platelet Count 157 10^3/uL Normal 150-450 Mean Platelet Volume 9.0 fL Normal 7.4-10.4 Comp Metabolic 01/19/2020 [facility] Sodium 135 mmol/L Normal 135-[address] [place] [address] [phone] Potassium 3.9 mmol/L Normal 3.5-5.0 Chloride 101 [...] Egfr Non- 61.4 >60 Egfr 74.3 >60 18 Laboratory 01/19/2020 [facility] B-Type 361 pg/mL High <=100 test finding [address] [place] [address] Peptide BNP [phone] Laboratory 01/14/2020 [facility] Ferritin 708.4 High 24-[address] ng/[place] [address] [phone] Xray 01/14/2020 [facility] Chest PA & Lat <pending> [address] 2 [place] [address] [phone] CBC Auto Diff 12/23/2019 [facility] White Blood 5.5 Normal 3.5 -10.[address] Count 10^3/[place] [address] [phone] Red Blood Count 4.74 10^6/uL Normal 4.18-5.48 [...] % 0.0 Iron & Iron Binding 12/23/2019 [facility] Iron 33 g/dL Low 50-212 Capacity [address] [place] [address] [phone] Unsaturated Iron Binding < 205 g/dL Total Iron Binding Capacity 220 g/dL Low 250-450 Transferrin 157 mg/dL Low 203-362 % Iron Saturation 15 % Normal 15-55 Comp Metabolic 12/23/2019 [facility] Sodium 136 mmol/L Normal 135-145 Panel [address] [place] [address] [phone] Potassium 4.0 mmol/L Normal 3.5-5.0 Chloride 102 [...] Egfr Non- 64.7 >60 Egfr 78.3 >60 19 Laboratory 12/23/2019 [facility] D Dimer 261 ng/mL High Less 20 test finding [address] [place] [address] 354 [phone] CBC Auto Diff 11/23/2019 [facility] White Blood 4.2 Normal 3.5 -10. [address] Count 10^3/uL 8 [place], [place] [address] [phone] Red Blood Count 4.69 10^6/uL Normal 4.18-5.48 [...] Blood Cells % 0.0 Comp Metabolic 11/23/2019 [facility] Sodium 139 mmol/L Normal 135-[address] [place] [address] [phone] Potassium 3.8 mmol/L Normal 3.5-5.0 Chloride 107 [...] Egfr Non- 53.2 >60 Egfr 64.3 >60 21 Laboratory test 09/04/2019 [facility] Surgical SEE RESULT 22, [address] Pathology BELOW [place], [place] [address] [phone] 1 Because ethnic data is not always [...] 5 Kidney failure <15 (or dialysis) 2 Desirable: <150 Borderline High: 150-199 High: 200-499 Very High: >500 3 Desirable: <200 Borderline High: 200-239 High: >239 4 Low: <40 Desirable: 40-60 High: >60 5 Desirable: <100 Near Optimal: 100-129 Borderline High: 130-159 High: 160-189 Very High: >189 6 Because ethnic data is not always [...] 5 Kidney failure <15 (or dialysis) 7 DO THIS IN ABOUT 3-5 MONTHS Copy Result to: BAO RODNEY ([id number]) 8 Suboptimal collection technique may reduce sensitivity of test. Refer to the [facility] Test Catalog for collection information: [email or web address] As with all diagnostic procedures, the laboratory results obtained should be used in conjunction with other clinical information available to the physician, including confirmation by another method, as applicable. 9 Orthodontic Laboratory Technician: [id number] 10 Because ethnic data is not always [...] 5 Kidney failure <15 (or dialysis) 12 Standard intensity warfarin therapeutic range: 2.0-3.0 High intensity warfarin therapeutic range: 2.5-3.5 13 Because ethnic data is not always [...] 5 Kidney failure <15 (or dialysis) 14 SEE RESULT BELOW Name: BETO PEREZ : [address]: Julien Sheikh MD Acct: [id number] Unit: [id number] AGE: 89 Location: [facility] Re01/19/20 SEX: M Status: REG REF SPEC: [id number] DOMINGO: 01/19/20-1306 [facility] DR: Julien Sheikh MD REQ: [id number] RECD: 01/19/20-1517 STATUS: TUNDE MEJIA DR: Serenity Martin MD _ SOURCE: GAS ANTRUM SPDESC: ORDERED: Clotest Procedure Result Reported Site Clotest Final 01/20/20- 942 ML Clotest Negative * ML - Main Lab . END OF REPORT DEPARTMENT OF PATHOLOGY, [address] [place] [address] Jeet Hall M.D. Director [facility] # [id number] 15 SEE RESULT BELOW Name: BETO PEREZ : [address]: Julien Sheikh MD Acct: [id number] Unit: [id number] AGE: 89 Location: ENDO Re01/19/20 SEX: M Status: REG REF SPEC: [id number] DOMINGO: 01/19/20-1306 [facility] DR: Julien Sheikh MD REQ: [id number] RECD: 01/19/20 STATUS: TUNDE MEJIA DR: Serenity Martin MD _ SOURCE: STOOL SPDESC: ORDERED: Occult Bl, Diag Procedure Result Reported Site Stool Occult Blood (1) Final 01/19/20- 1535 ML Stool Occult Blood Negative Collection Date (1) 01/19/20 * ML - Main Lab . END OF REPORT DEPARTMENT OF PATHOLOGY, [address] [place] [address] Jeet Hall M.D. Director CLIA # [id number] RESULT: No apparent monoclonal protein on serum electrophoresis. Test Performed by: [facility] [place] [address] Pressure Testing Technician: Norberto Cutler M.D. Ph.D.; CLIA# [id number] 17 Test Performed by: [place] [address] Pressure Testing Technician: Norberto Cutler M.D. Ph.D.; CLIA# [id number] 18 Because ethnic data is not always readily [...] 15-29 5 Kidney failure <15 (or dialysis) 19 Because ethnic data is not always [...] 5 Kidney failure <15 (or dialysis) 20 Please note: The following may produce a false positive D Dimer test: - Rheumatoid factor greater than 60 IU/ml - Plasma hemoglobin greater than 0.05 gm/dl - Bilirubin greater than 50 mg/dl - Lipids greater than 1000 mg/dl - FDP greater than 20 ug/ml 21 Because ethnic data is not always readily [...] 15-29 5 Kidney failure <15 (or dialysis) 22 [id number] 23 SEE RESULT BELOW Name: BETO PEREZ : [address]: Oj Quintero MD Acct: [id number] Unit: [id number] AGE: 89 Location: [facility] Re09/04/19 SEX: M Status: REG REF SPEC: [id number] DOMINGO: 09/04/191158 [facility] DR: Oj Quintero MD REQ: [id number] RECD: 09/04/190657 STATUS: MANPREET MEJIA DR: Serenity Hanson MD _ ORDERED: LEVEL 4 COMMENTS: [id number] FINAL DIAGNOSIS Skin, right mid forehead, excision: -- Scar, excised. -- No evidence of residual basal cell carcinoma. COMMENT: The previous lesion at this site ([id number]) has been completely excised. CLINICAL HISTORY See [facility] [id number] PRE-OPERATIVE DIAGNOSIS Basal cell carcinoma, suture lopez 12:00 medial apex margin GROSS DESCRIPTION The specimen is received in formalin labeled, Excision Basal Cell Carcinoma Right Mid Forehead, Suture Lopez 12:00 Medial Elizabeth Margin, and consists of a 3.0 x [...] 1103 END OF REPORT DEPARTMENT OF PATHOLOGY, [address] [place] [address] Jeet Hall M.D. Director [facility] # [id number] Procedures Date Code Description Status 01/28/2020 36668 Ernestina JIN&BENITAX L Ventriculog Img S&I Completed 01/20/2020 09349 EKG Tracing & Interpretation Completed 01/19/2020 69185 Endoscopy Upper GI Biopsy Completed 01/11/2020 92739 ECHO Transthoracic, Real-Time 2D With Doppler And Color Completed Flow 01/11/2020 79173 ECHO Transthoracic, Real-Time 2D With Doppler And Color Completed Flow 12/21/2019 42317 EKG Tracing & Interpretation Completed 12/07/2019 15486 Inject/Drain Joint/Bursa Major W/O US Completed 12/15/2013 [id number] Colonoscopy Completed 10/21/2007 [id number] Colonoscopy Completed 02/18/2001 [id number] Colonoscopy Completed Medical Devices Description No Information Available Encounters Type Date Location Provider Dx Diagnosis Office Visit 02/19/2020 [facility] Yefri Guevara.10 Myalgia, 2:00p Gissel Camargo M.D. unspecified site K59.00 Constipation, unspecified Office Visit 02/08/2020 9:00a [facility] Serenity M79.10 Myalgia, Gissel Martin M.D. unspecified site Ccmob J06.9 Acute upper respiratory infection, unspecified R19.7 Diarrhea, unspecified Office Visit 02/02/2020 Sourav Blake 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, 3:00p Cardiology Of MD Trudi, unspecified Assistant Director Of Security AT [facility] Office Visit 01/20/2020 Zoya Piedra D50.9 Iron deficiency 10:30a Cardiology Kelsey Rodney anemia, unspecified R60.0 Localized edema 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, unspecified I10 Essential (primary) hypertension I50.22 Chronic systolic (congestive) heart failure I49.5 Sick sinus syndrome I49.3 Ventricular premature depolarization I45.19 Other right bundle-branch block I45.2 Bifascicular block R94.31 Abnormal electrocardiogram [ECG] [EKG] Office Visit 01/14/2020 [facility] Gastroenterology Vanessa D50.9 Iron deficiency 1:10p Alison anemia, Elsa, NILDA unspecified R60.0 Localized edema 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, unspecified Office Visit 12/31/2019 8:40a [facility] Internal Serenity R60.0 Localized edema Medicine Meri Martin M.D. M25.562 Pain in left knee Office Visit 12/25/2019 9:15a [facility] Geno Sarath, M25.562 Pain in left at [facility].D. knee M25.462 Effusion, left knee M17.12 Unilateral primary osteoarthritis, left knee Office Visit 12/21/2019 [place] Bao Piedra 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, 3:20p Cardiology Of Kelsey Rodney unspecified Assistant Director Of Security I10 Essential (primary) hypertension D64.9 Anemia, unspecified I49.3 Ventricular premature depolarization R60.0 Localized edema I82.402 Acute embolism and thombos unsp deep veins of l low extrem I45.89 Other specified conduction disorders R94.31 Abnormal electrocardiogram [ECG] [EKG] Office Visit 12/07/2019 9:00a [facility] Geno lCemens, M25.562 Pain in left at [place] M.D. knee M25.462 Effusion, left knee M17.12 Unilateral primary osteoarthritis, left knee M54.32 Sciatica, left side Assessments Date Code Description Provider 02/19/2020 M79.10 Myalgia, unspecified site Serenity Martin M.D. 02/19/2020 K59.00 Constipation, unspecified Serenity Martin M.D. 02/13/2020 M62.82 Rhabdomyolysis Martir Case M.D. 02/13/2020 I10 Essential (primary) hypertension Martir Case M.D. 02/12/2020 M62.82 Rhabdomyolysis Martir Case M.D. 02/12/2020 I10 Essential (primary) hypertension Martir Case M.D. 02/08/2020 M79.10 Myalgia, unspecified site Serenity Martin M.D. 02/08/2020 J06.9 Acute upper respiratory infection, Serenity Martin M.D. unspecified 02/08/2020 R19.7 Diarrhea, unspecified Serenity Martin M.D. 02/02/2020 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, unspecified Alexandrea Brush MD, [facility] 01/28/2020 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, unspecified Shimon Clifford M.D., [facility], [facility] 01/20/2020 D50.9 Iron deficiency anemia, unspecified Bao Rodney M.D. 01/20/2020 R60.0 Localized edema Bao Rodney M.D. 01/20/2020 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, unspecified Bao Rodney M.D. 01/20/2020 I10 Essential (primary) hypertension Bao Rodney M.D. 01/20/2020 I50.22 Chronic systolic (congestive) heart Bao Rodney M.D. failure 01/20/2020 I49.5 Sick sinus syndrome Bao Rodney M.D. 01/20/2020 I49.3 Ventricular premature depolarization Bao Rodney M.D. 01/20/2020 I45.19 Other right bundle-branch block Bao Rodney M.D. 01/20/2020 I45.2 Bifascicular block Bao Rodney M.D. 01/20/2020 R94.31 Abnormal electrocardiogram [ECG] Bao Rodney M.D. [EKG] 01/19/2020 K29.70 Gastritis, unspecified, without Julien Sheikh MD bleeding 01/19/2020 D50.9 Iron deficiency anemia, unspecified Julien Sheikh MD 01/14/2020 D50.9 Iron deficiency anemia, unspecified Vanessa Hunter , NILDA 01/14/2020 R60.0 Localized edema Vanessa Hunter, [employer] 01/14/2020 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, unspecified Vanessa Hunter, NILDA 01/11/2020 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, unspecified Bao Rodney M.D. 01/11/2020 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, unspecified [place] ECHO Schedule 12/31/2019 R60.0 Localized edema Serenity Martin M.D. 12/31/2019 M25.562 Pain in left knee Serenity Martin M.D. 12/25/2019 M25.562 Pain in left knee Geno Clemens M.D. 12/25/2019 M25.462 Effusion, left knee Geno Clemens M.D. 12/25/2019 M17.12 Unilateral primary osteoarthritis, Geno Clemens M.D. left knee 12/21/2019 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, unspecified Bao Rodney M.D. 12/21/2019 I10 Essential (primary) hypertension Bao Rodney M.D. 12/21/2019 D64.9 Anemia, unspecified Bao Rodney M.D. 12/21/2019 I49.3 Ventricular premature depolarization Bao Rodney M.D. 12/21/2019 R60.0 Localized edema Bao Rodney M.D. 12/21/2019 I82.402 Deep venous thrombosis Bao Rodney M.D. 12/21/2019 I45.89 Sinus node dysfunction Bao Rodney M.D. 12/21/2019 R94.31 Abnormal electrocardiogram [ECG] Bao Rodney M.D. [EKG] 12/07/2019 M25.562 Pain in left [...] 8:45 am - Geno Clemens M.D. at [facility] at [place]/19/2020 - Serenity Martin M.D.M79.10 Myalgia, unspecified siteComments:Dr. Bowen will have labs he needs prior to izrwyD78.00 Constipation, unspecifiedComments:You can use MiraLax with Colace or Colace aloneSend me an email through the portal if further problems Functional Status Description No Information Available Mental Status Description No Information Available Referrals Refer to Reason for Referral Status Appt Date Julien Sheikh MD Scheduled 01/14/2020 [address] [place] [phone] [phone]
[2020-02-25 04:10] LABS: INR 1.2 (0.82-1.09)
[2020-02-25 04:22] LABS: ALT 44 U/L (7-52); AST 88 U/L (13-39); Albumin 1.7 g/dL (3.2-5.2); Albumin/Globulin Ratio 0.9 (1-3); Alkaline Phosphatase 53 U/L (34-104); Anion Gap 9 mmol/L (2-11); BUN/Creatinine Ratio 46.1 (8-20); Blood Urea Nitrogen 70 mg/dL (6-24); CO2 Carbon Dioxide 20 mmol/L (22-32); Calcium 6.7 mg/dL (8.6-10.3); Chloride 107 mmol/L (101-111); EGFR African American 52.8 (>60); EGFR Non-African American 43.6 (>60); Glucose 126 mg/dL (70-100); Magnesium 1.9 mg/dL (1.9-2.7); Potassium 4.3 mmol/L (3.5-5.0); Sodium 136 mmol/L (135-145); Total Protein 3.7 g/dL (6.4-8.9)
--- NOTE | 2020-02-25 04:32 | ED ---
Syncope/Near Syncope - HPI Summary HPI Summary: Patient is a year-old male arriving via ambulance to [facility] with a chief complaint of two syncopal episodes and blood in stool in the last day. He states that he did not fall out of his bed but his daughter found him on the ground out of bed. He endorses left lateral rib pain and left abdominal pain which is present when he rolls onto his side, and hemoptysis with cough. About a week ago, he had darkened stools that subsided until this morning he had a bowel movement which was black after falling out of bed. He notes mild shortness of breath that has since resolved. He denies any head injury or chest pain. Symptoms rated 7/10 in severity. Not currently on blood thinners. Past medical history significant for anemia, hypertension, GERD, arthritis, BPH, arthritis, back problems, basal cell carcinoma. Nonsmoker, no EtOH, no substance use. Medications reviewed. Allergies noted. - History Of Current Complaint Chief Complaint: EDSyncope Time Seen by Provider: 02/25/20 03:37 Hx Obtained From: Patient Onset/Duration: Other - two syncopal episodes in last day, blood in stool this morning Context: Witnessed Associated Head Trauma: No Aggravating Factor(s): Nothing Alleviating Factor(s): Nothing Associated Signs And Symptoms: GI Blood Loss - dark stools, Pain - left lateral ribs, Shortness Of Breath - resolved, Other - Negative: chest pain - Allergies/Home Medications Allergies/Adverse Reactions: Allergies Allergy/AdvReac Type Severity Reaction Status Date / Time bee venom protein (honey bee) Allergy Rash And Verified 02/25/20 03:21 Itching procaine Allergy Hives Verified 02/25/20 03:21 Home Medications: Home Medications Hydrochlorothiazide TAB* [Hydrodiuril TAB*] 12.5 mg PO DAILY 12/11/13 [History Confirmed 02/25/20] Finasteride TAB* [Proscar TAB*] 5 mg PO DAILY 12/29/15 [History Confirmed ] Doxazosin TAB* [Cardura TAB*] 4 mg PO BEDTIME 10/20/18 [History Confirmed ] Metoprolol Succinate XL TAB* [Toprol XL TAB*] 12.5 mg PO DAILY 05/11/19 [ History Confirmed 02/25/20] Amoxicillin PO (*) [Amoxicillin 500 MG CAP*] 2,000 mg PO ONCE 01/18/20 [History Confirmed 02/25/20] Aspirin EC TAB* [Ecotrin EC Low Dose 81 MG*] 81 mg PO DAILY 01/18/20 [History Confirmed 02/25/20] traMADol TAB* [Ultram*] 50 - 100 mg PO Q6H PRN 01/18/20 [History Confirmed 02/24] predniSONE 20 mg TAB [Deltasone 20 MG TAB*] 20 mg PO DAILY #20 tab 02/18/20 [Rx Confirmed 02/25/20] Potassium Chloride [Klor-Con M20] 20 meq PO DAILY 02/25/20 [History Confirmed ] Torsemide TAB* [Demadex*] 10 mg PO DAILY 02/25/20 [History Confirmed 02/25/20] PMH/Surg Hx/FS Hx/Imm Hx Endocrine/Hematology History: Reports: Hx Anemia Denies: Hx Anticoagulant Therapy, Hx Diabetes Cardiovascular History: Reports: Hx Hypertension - ON MEDICATION FOR Denies: Hx Pacemaker/ICD, Other Cardiovascular Problems/Disorders Respiratory History: Denies: Hx Asthma, Other Respiratory Problems/Disorders GI History: Reports: Hx Gastroesophageal Reflux Disease - ON MEDICATION FOR Denies: Other GI Disorders History: Reports: Hx Benign Prostatic Hyperplasia, Other Problems/ Disorders - BPH Denies: Hx Dialysis, Hx Renal Disease Musculoskeletal History: Reports: Hx Arthritis - RIGHT HIP, RIGHT KNEE, Hx Back Problems Denies: Other Musculoskeletal History Sensory History: Reports: Hx Cataracts, Hx Hearing Aid, Hx Hearing Problem Denies: Hx Contacts or Glasses Opthamlomology History: Reports: Hx Cataracts Denies: Hx Contacts or Glasses Neurological History: Reports: Other Neuro Impairments/Disorders - PAIN CLINIC PATIENT Psychiatric History: Denies: Hx Panic Disorder - Cancer History Cancer Type, Location and Year: BASAL CELL CARCINOMA Hx Chemotherapy: No Hx Radiation Therapy: No - Surgical History Surgery Procedure, Year, and Place: 12/1994 HEMORRHOIDECTOMY, [facility]. 03/1995 EXCISION OF BCC LEFT LEG, [facility]. 07/1995 BASAL CELL CARCINOMA LEFT LEG RECURRENT; WIDE EXCISION-SPLIT THICKNESS SKIN GRAFT FROM LEFT LEG TO LEFT LEG, [facility]. 12/2003 HEMORRHOIDECTOMY, [facility]. 11/11/2015-BASAL CELL REMOVED FROM THE RIGHT SCIENTOLOGIST. November 2016 - right hip replacement Hx Anesthesia Reactions: No Infectious Disease History: No Infectious Disease History: Denies: Traveled Outside the [place] in Last 30 Days - Family History Known Family History: Positive: Hypertension Negative: Diabetes - Social History Alcohol Use: None Hx Substance Use: No Substance Use Type: Reports: None Hx Tobacco Use: No Smoking Status (MU): Never Smoked Tobacco Have You Smoked in the Last Year: No - Additional Comments History Additional Comments: anemia, hypertension, GERD, arthritis, BPH, arthritis, back problems, basal cell carcinoma Review of Systems - ROS Summary Review of Systems Summary: Home Medications Medication Instructions Recorded Confirmed Type Hydrochlorothiazide TAB* 12.5 mg PO QAM 12/11/13 02/12/20 History [Hydrodiuril TAB*] Finasteride TAB* [Proscar TAB*] 5 mg PO QAM 12/29/15 02/12/20 History Doxazosin TAB* [Cardura TAB*] 4 mg PO BEDTIME 10/20/18 02/12/20 History Metoprolol Succinate XL TAB* 12.5 mg PO DAILY 05/11/19 02/12/20 History [Toprol XL TAB*] Amoxicillin PO (*) [Amoxicillin 2,000 mg PO ONCE PRN 01/18/20 02/12/20 History 500 MG CAP*] Aspirin EC TAB* [Ecotrin EC Low 81 mg PO QAM 01/18/20 02/12/20 History Dose 81 MG*] traMADol TAB* [Ultram*] 50 - 100 mg PO Q12H PRN 01/18/20 02/12/20 History predniSONE 20 mg TAB [Deltasone 20 20 mg PO DAILY #20 tab 02/18/20 Rx MG TAB*] Negative: Chest Pain Positive: Shortness Of Breath - resolved, Cough - with hemoptysis Positive: Other - black stools Neurological/Mental Status: Other - Negative: head injury Positive: Syncope All Other Systems Reviewed And Are Negative: Yes Physical Exam - Summary Physical Exam Summary: General: Well-developed, Well-nourished elderly male. No acute distress. HEENT: Normocephalic, Atraumatic. Eyes: Conjuctiva normal, PERRL. Oropharynx: Clear, mucous membranes moist, (-) exudates. Neck: Soft, FROM, (-) lymphadenopathy, (-) thyromegaly, (-) JVD. Cardiovascular: Normal sinus rhythm, (-) murmur. Lungs: Clear to auscultation bilaterally, (-) wheezes, (-) rales, (-) rhonchi. Chest Wall: Tenderness in the inferior left anterior ribs Abdomen: Soft, left upper quadrant tenderness, non-distended, (-) organomegaly, normal bowel sounds. Back: (-) CVA tenderness Extremities: No edema. Skin: Warm, dry, (-) rash. Neuro: Alert and oriented x3, moves all extremities equally. No ataxia. No gait disturbance. No sensory deficit. Normal strength, normal sensation. Psychiatric: Mood normal, affect normal. Rectal: Normal sphincter tone, Black stool. Triage Information Reviewed: Yes Vital Signs On Initial Exam: Initial Vitals Temp Pulse Resp BP Pulse Ox 97.2 F 113 22 108/58 100 02/25/20 03:03 02/25/20 03:03 02/25/20 03:03 02/25/20 03:03 02/25/20 03:03 Vital Signs Reviewed: Yes Procedures - Sedation Patient Received Moderate/Deep Sedation with Procedure: No Diagnostics - Vital Signs Vital Signs Temp Pulse Resp BP Pulse Ox 02/25/20 04:00 101 21 93 02/25/20 03:39 93 19 100 02/25/20 03:09 20 108/58 02/25/20 03:03 97.2 F 113 22 108/58 100 - Laboratory Lab Results: Lab Results 02/25/20 02/25/20 02/25/20 Range/Units 03:54 03:54 03:54 INR (Anticoag Therapy) 1.20 H (0.82-1.09) Sodium 136 (135-145) mmol/L Potassium 4.3 (3.5-5.0) mmol/L Chloride 107 (101-111) mmol/L Carbon Dioxide 20 L (22-32) mmol/L Anion Gap 9 (2-11) mmol/L BUN 70 H (6-24) mg/dL Creatinine 1.52 H (0.67-1.17) mg/dL Est GFR ( Amer) 52.8 (>60) Est GFR (Non-Af Amer) 43.6 (>60) BUN/Creatinine Ratio 46.1 H (8-20) Glucose 126 H (70-100) mg/dL Lactic Acid 4.9 H* (0.5-2.0) mmol/L Calcium 6.7 L (8.6-10.3) mg/dL Magnesium 1.9 (1.9-2.7) mg/dL Total Bilirubin 0.40 (0.2-1.0) mg/dL AST 88 H (13-39) U/L ALT 44 (7-52) U/L Alkaline Phosphatase 53 (34-104) U/L Troponin I Pending Total Protein 3.7 L (6.4-8.9) g/dL Albumin 1.7 L (3.2-5.2) g/dL Globulin 2.0 (2-4) g/dL Albumin/Globulin Ratio 0.9 L (1-3) TSH Pending Blood Type Antibody Screen 02/25/20 Range/Units 03:54 INR (Anticoag Therapy) (0.82-1.09) Sodium (135-145) mmol/L Potassium (3.5-5.0) mmol/L Chloride (101-111) mmol/L Carbon Dioxide (22-32) mmol/L Anion Gap (2-11) mmol/L BUN (6-24) mg/dL Creatinine (0.67-1.17) mg/dL Est GFR ( Amer) (>60) Est GFR (Non-Af Amer) (>60) BUN/Creatinine Ratio (8-20) Glucose (70-100) mg/dL Lactic Acid (0.5-2.0) mmol/L Calcium (8.6-10.3) mg/dL Magnesium (1.9-2.7) mg/dL Total Bilirubin (0.2-1.0) mg/dL AST (13-39) U/L ALT (7-52) U/L Alkaline Phosphatase (34-104) U/L Troponin I Total Protein (6.4-8.9) g/dL Albumin (3.2-5.2) g/dL Globulin (2-4) g/dL Albumin/Globulin Ratio (1-3) TSH Blood Type O Positive Antibody Screen Pending Result Diagrams: 02/26/20 04:00 02/26/20 04:00 Lab Statement: Any lab studies that have been ordered have been reviewed, and results considered in the medical decision making process. - Radiology CXR Radiology Interpretation Completed By: ED Physician Summary of Radiographic Findings: No pleural effusion. No infiltrate. This imaging scan was reviewed and interpreted by Dr. Morin. - CT Chest/abdomen/pelvis CT CT Interpretation Completed By: Radiologist Summary of CT Findings: 1. THERE IS GENERALIZED THICKENING OF THE DESCENDING AND SIGMOID COLON. A PROBABLE SIGMOIDAL PERFORATION IS ANNOTATED (SERIES 604.2 IMAGE 31: SERIES 3 IMAGE 68). 2. THERE IS MORE GENERALIZED SMALL BOWEL HYPEREMIA AND THICKENING. RECOMMEND CORRELATION WITH SERUM LACTATE LEVELS TO EVALUATE FOR THE POSSIBILITY OF AN ISCHEMIC PROCESS. 3. PNEUMOPERITONEUM AND SMALL VOLUME ASCITES. 4. SMALL BILATERAL PLEURAL EFFUSIONS. 5. DIVERTICULOSIS. 6. CARDIOMEGALY. 7. INCIDENTAL 8MM PULMONARY NODULE ALONG THE RIGHT MINOR FISSURE. REPEAT CHEST CT IN 6-12. MONTHS. ED physician has reviewed this report. - EKG 0354 Cardiac Rate: Tachycardia - 100 BPM EKG Rhythm: Sinus Tachycardia Summary of EKG Findings: EKG at 0354 reveals sinus tachycardia with rate of 100 BPM, no acute changes, no ischemic changes. This EKG was reviewed and interpreted by Dr. Morin. Re-Evaluation - Re-Evaluation First Eval Re-Evaluation Time: 06:15 Comment: Patient agreeable with admission. Second Eval Re-Evaluation Time: 08:20 Comment: The patient last ate yesterday. He is sitting comfortably in bed. Course/Dx Course Of Treatment: 89 year-old male presents from home for fall on bed to floor. Patient is a vague historian. Complains of pain in the left chest and abdomen. Denies pain prior to fall. No shortness of breath. Was fine before bed. Denies any recent fevers, cough, vomiting. Does admit to dark stools one week ago. This resolved on its own. This morning after falling from bed, he did have a large black bowel movement. No dizziness or lightheadedness. No vision changes. No numbness, tingling, or weakness in any extremities. No anticoagulants. History of anemia and iron infusions. On physical, he is well- appearing, mild tenderness in left ribs and abdomen, devika black stool on rectal exam. Laboratories demonstrate hemoglobin 8.0, which is a significant drop from 2 weeks ago. Lactic acid is 4.9. Troponin is 0.26. EKG and CXR show no significant abnormalities. Patient consents for transfusion of blood, which is started in the ER. Trauma CT of the chest and abdomen are ordered. Patient is referred to hospitalist for admission for GI bleed and fall. Dr. Ibarra requests waiting for admission until CT results return. Patient is signed-out to Dr. Núñez at change of shift pending Chest/Abd/Pel CT. - Diagnoses Provider Diagnoses: GI bleed, Fall, Perforated sigmoid colon, Pneumoperitoneum, Ischemia, bowel, Syncope, Anemia, Elevated serum lactate dehydrogenase, Elevated troponin, Acute kidney injury - Physician Notifications Discussed Care of Patient With: Baldev Gallo - hospitalist Time Discussed With Above Provider: 06:30 Instructed by Provider To: Other - I discussed the patient's case with Dr. Gallo, who passes patient onto shift change providers. Pending trauma CTs. Dr. Ibarra requests that the patient wait admission pending CTs. - Critical Care Time Critical Care Time: 75-104 min - 112 minutes Discharge ED - Sign-Out/Discharge Documenting (check all that apply): Sign-Out Patient Signing out patient TO: Akhil Núñez - Patient is a sign-out from Dr. Akhil Núñez MD, at 0700 on 02/25/2020, pending Chest/Abd/Pel CT and disposition. - Discharge Plan Condition: Stable Disposition: ADMITTED TO [facility] - Billing Disposition and Condition Condition: STABLE Disposition: Admitted to [facility] - Attestation Statements Document Initiated by Vern: Yes Documenting Scribe: Elisa Ferrari Provider For Whom Vern is Documenting (Include Credential): Kamila Morin MD Scribe Attestation: Elisa Waldron, scribed for Kamila Morin MD on 02/26/20 at 2019. Scribe Documentation Reviewed: Yes Provider Attestation: The documentation as recorded by the Elisa zavaleta accurately reflects the service I personally performed and the decisions made by me, Kamila Morin MD Status of Scribe Document: Viewed
[2020-02-25 04:40] LABS: Troponin I 0.26 ng/mL (<0.03)
[2020-02-25 05:27] LABS: TSH (Thyroid Stimulating Horm) 1.56 mcIU/mL (0.34-5.60)
[2020-02-25 05:43] LABS: Hematocrit 25 % (42-52); Mean Corpuscular HGB Conc 32 g/dL (31-36); Mean Corpuscular Hemoglobin 26 pg (27-31); Mean Corpuscular Volume 80 fL (80-94); Red Blood Count 3.13 10^6 /uL (4.18-5.48); White Blood Count 12.3 10^3/uL (3.5-10.8)
[2020-02-25 05:44] LABS: ABS Lymphocytes 0.2 10^3/ul (1.0-4.8); ABS Monocytes 0.7 10^3/ul (0-0.8); ABS Neutrophils 11.3 10^3/ul (1.5-7.7); Mean Platelet Volume 9.3 fL (7.4-10.4); Platelet Count 185 10^3/uL (150-450); Red Cell Distribution Width 16 % (10-15)
[2020-02-25 05:47] LABS: Eosinophil % 0.1 %; Lymphocyte % 1.9 %; Nucleated Red Blood Cells % 0.1
[2020-02-25] MEDS ORDERED: Iodixanol* (CONTRAST) 320 MG/ML 100 ML SDV IV ONE (06:48)
--- NOTE | 2020-02-25 07:16 | ED ---
Progress - Progress Note Progress Note: Patient signed out by Dr. Morin to Dr. Núñez at 07:00 on 02/25/[address] chest/abdomen/pelvis. Chest/abdomen/pelvis CT Impression: 1. THERE IS GENERALIZED THICKENING OF THE DESCENDING AND SIGMOID COLON. A PROBABLE SIGMOIDAL PERFORATION IS ANNOTATED ( SERIES 604.2 IMAGE 31: SERIES 3 IMAGE 68). 2. THERE IS MORE GENERALIZED SMALL BOWEL HYPEREMIA AND THICKENING. RECOMMEND CORRELATION WITH SERUM LACTATE LEVELS TO EVALUATE FOR THE POSSIBILITY OF AN ISCHEMIC PROCESS. 3. PNEUMOPERITONEUM AND SMALL VOLUME ASCITES. 4. SMALL BILATERAL PLEURAL EFFUSIONS. 5. DIVERTICULOSIS. 6. CARDIOMEGALY. 7. INCIDENTAL 8MM PULMONARY NODULE ALONG THE RIGHT MINOR FISSURE. REPEAT CHEST CT IN 6-12 MONTHS. ED physician has reviewed and interpreted this report. Re-Evaluation - Re-Evaluation First Eval Re-Evaluation Time: 06:15 Comment: Patient agreeable with admission. Second Eval Re-Evaluation Time: 08:20 Comment: The patient last ate yesterday. He is sitting comfortably in bed. Course/Dx - Course Course Of Treatment: Patient was signed out to myself from Dr. Morin. Patient is pending CT scan of his chest/abdomen/pelvis. Patient has been having GI bleeding over the past couple of days. On my examination and history, patient' s had bloody stools for the past couple of days. Patient is hard to get a history out of. Patient's only complaint is left upper quadrant abdominal pain. Patient was not pertinent on exam. Patient had a CT scan which showed perforated sigmoid colon and likely ischemic small bowel. Patient was immediately given Zosyn by myself and surgery was called. Patient's family was also made aware by myself. Patient was taken to the operating room by surgery and ICU was called by myself for admission - Diagnoses Provider Diagnoses: GI bleed, Fall, Perforated sigmoid colon, Pneumoperitoneum, Ischemia, bowel, Syncope, Anemia, Elevated serum lactate dehydrogenase, Elevated troponin, Acute kidney injury - Provider Notifications Discussed Care Of Patient With: Paz Ibarra Time Discussed With Above Provider: 08:42 Instructed by Provider To: Other - Discussed with Dr. Ibarra who feels that the patient should be admitted to the ICU. [08:47] Discussed with Dr. Champagne who accepts the patient for admission. - Critical Care Time Critical Care Time: 30-74 min - 35 minutes Discharge ED - Sign-Out/Discharge Documenting (check all that apply): Patient Departure, Receiving Sign-Out Receiving patient FROM: Kamila Morin - Pending CT chest/abdomen/pelvis. - Discharge Plan Condition: Stable Disposition: ADMITTED TO [facility] - Billing Disposition and Condition Condition: STABLE Disposition: Admitted to [facility] - Attestation Statements Document Initiated by Scribe: Yes Documenting Scribe: Carina Miramontes Provider For Whom Scribe is Documenting (Include Credential): Akhil Núñez MD Scribe Attestation: Carina Waldron, scribed for Akhil Núñez MD on 02/25/20 at 1526. Scribe Documentation Reviewed: Yes Provider Attestation: The documentation as recorded by the scribe, Carina Miramontes accurately reflects the service I personally performed and the decisions made by me, Akhil Núñez MD Status of Scribe Document: Viewed Diagnostics - Vital Signs Vital Signs Temp Pulse Resp BP Pulse Ox 02/25/20 07:39 81 23 109/57 98 02/25/20 07:34 85 22 124/68 100 02/25/20 06:40 81 100 02/25/20 06:39 97.5 F 91 19 113/58 100 02/25/20 06:09 89 19 108/46 99 02/25/20 06:00 96 99 02/25/20 05:39 18 101/61 02/25/20 05:23 92 21 132/63 100 02/25/20 05:09 89 100 02/25/20 05:00 92 99 02/25/20 04:51 108/57 02/25/20 04:43 94 18 99/58 100 02/25/20 04:39 92 99 02/25/20 04:09 90 4 99 02/25/20 04:00 101 21 93 02/25/20 03:39 93 19 100 02/25/20 03:09 20 108/58 02/25/20 03:03 97.2 F 113 22 108/58 100 - Laboratory Lab Results: Lab Results 02/25/20 02/25/20 02/25/20 Range/Units 03:54 03:54 03:54 INR (Anticoag Therapy) 1.20 H (0.82-1.09) Sodium 136 (135-145) mmol/L Potassium 4.3 (3.5-5.0) mmol/L Chloride 107 (101-111) mmol/L Carbon Dioxide 20 L (22-32) mmol/L Anion Gap 9 (2-11) mmol/L BUN 70 H (6-24) mg/dL Creatinine 1.52 H (0.67-1.17) mg/dL Est GFR ( Amer) 52.8 (>60) Est GFR (Non-Af Amer) 43.6 (>60) BUN/Creatinine Ratio 46.1 H (8-20) Glucose 126 H (70-100) mg/dL Lactic Acid 4.9 H* (0.5-2.0) mmol/L Calcium 6.7 L (8.6-10.3) mg/dL Magnesium 1.9 (1.9-2.7) mg/dL Total Bilirubin 0.40 (0.2-1.0) mg/dL AST 88 H (13-39) U/L ALT 44 (7-52) U/L Alkaline Phosphatase 53 (34-104) U/L Troponin I Pending Total Protein 3.7 L (6.4-8.9) g/dL Albumin 1.7 L (3.2-5.2) g/dL Globulin 2.0 (2-4) g/dL Albumin/Globulin Ratio 0.9 L (1-3) TSH Pending Blood Type Antibody Screen 02/25/20 Range/Units 03:54 INR (Anticoag Therapy) (0.82-1.09) Sodium (135-145) mmol/L Potassium (3.5-5.0) mmol/L Chloride (101-111) mmol/L Carbon Dioxide (22-32) mmol/L Anion Gap (2-11) mmol/L BUN (6-24) mg/dL Creatinine (0.67-1.17) mg/dL Est GFR ( Amer) (>60) Est GFR (Non-Af Amer) (>60) BUN/Creatinine Ratio (8-20) Glucose (70-100) mg/dL Lactic Acid (0.5-2.0) mmol/L Calcium (8.6-10.3) mg/dL Magnesium (1.9-2.7) mg/dL Total Bilirubin (0.2-1.0) mg/dL AST (13-39) U/L ALT (7-52) U/L Alkaline Phosphatase (34-104) U/L Troponin I Total Protein (6.4-8.9) g/dL Albumin (3.2-5.2) g/dL Globulin (2-4) g/dL Albumin/Globulin Ratio (1-3) TSH Blood Type O Positive Antibody Screen Pending Result Diagrams: 02/25/20 14:20 02/25/20 03:54 Lab Statement: Any lab studies that have been ordered have been reviewed, and results considered in the medical decision making process. - Radiology CXR Radiology Interpretation Completed By: ED Physician Summary of Radiographic Findings: No pleural effusion. No infiltrate. This imaging scan was reviewed and interpreted by Dr. Morin. - CT Chest/abdomen/pelvis CT CT Interpretation Completed By: Radiologist Summary of CT Findings: 1. THERE IS GENERALIZED THICKENING OF THE DESCENDING AND SIGMOID COLON. A PROBABLE SIGMOIDAL PERFORATION IS ANNOTATED (SERIES 604.2 IMAGE 31: SERIES 3 IMAGE 68). 2. THERE IS MORE GENERALIZED SMALL BOWEL HYPEREMIA AND THICKENING. RECOMMEND CORRELATION WITH SERUM LACTATE LEVELS TO EVALUATE FOR THE POSSIBILITY OF AN ISCHEMIC PROCESS. 3. PNEUMOPERITONEUM AND SMALL VOLUME ASCITES. 4. SMALL BILATERAL PLEURAL EFFUSIONS. 5. DIVERTICULOSIS. 6. CARDIOMEGALY. 7. INCIDENTAL 8MM PULMONARY NODULE ALONG THE RIGHT MINOR FISSURE. REPEAT CHEST CT IN 6-12. MONTHS. ED physician has reviewed this report. - EKG 0354 Cardiac Rate: Tachycardia - 100 BPM EKG Rhythm: Sinus Tachycardia Summary of EKG Findings: EKG at 0354 reveals sinus tachycardia with rate of 100 BPM, no acute changes, no ischemic changes. This EKG was reviewed and interpreted by Dr. Morin.
[2020-02-25] MEDS ORDERED: Piperacillin/Tazobac ADVAN(*) 3.375 GM in NS 0.9% 100 ML* 100 ML IVPB ONE (08:19)
[2020-02-25] MEDS ORDERED: fentaNYL* 50 MCG/ML 2 ML VIAL (100 MCG VIAL) ONE ×5 (09:47→17:07)
[2020-02-25] MEDS ORDERED: Succinylcholine* 20 MG/ML 10 ML VIAL ONE (09:47)
[2020-02-25] MEDS ORDERED: Midazolam* 1 MG/ML 5 ML VIAL (5 MG) ONE (09:47)
[2020-02-25] MEDS ORDERED: KETAMINE HCL* 50 MG/ML 10 ML VIAL ONE (09:47)
[2020-02-25] MEDS ORDERED: Lidocaine 2% PF * 5 ML VIAL ONE (09:47)
[2020-02-25] MEDS ORDERED: CALCIUM GLUCONATE 1GM/50ML NS 1 GM/50 ML BAG IV ONE (10:00)
[2020-02-25] MEDS ORDERED: ceFAZolin 2 GM PREMIX in ORs 2 GM/50 ML BAG ONE (10:02)
[2020-02-25] MEDS ORDERED: Sodium Citrate/Citric Acid* 15 ML UDC ONE (10:03)
[2020-02-25] MEDS ORDERED: Famotidine IV* 10 MG/ML 2 ML (20 mg) ONE (10:03)
[2020-02-25] MEDS ORDERED: Naloxone* 0.4 MG/ML 1 ML VIAL IV PRN (10:16)
[2020-02-25] MEDS ORDERED: Famotidine IV* 10 MG/ML 2 ML (20 mg) IV SLOW PU ONE (10:16)
[2020-02-25] MEDS ORDERED: fentaNYL* 50 MCG/ML 2 ML VIAL (100 MCG VIAL) IV PRN (10:16)
[2020-02-25] MEDS ORDERED: Morphine 4 MG/ML VIAL (1 ml) 4 MG/ML VIAL IV PRN (10:16)
[2020-02-25] MEDS ORDERED: Sodium Citrate/Citric Acid* 15 ML UDC PO ONE (10:16)
[2020-02-25] MEDS ORDERED: Rocuronium* 10 MG/ML VIAL ONE (10:20)
--- NOTE | 2020-02-25 10:23 | PN ---
Progress Note - Progress Note Date of Service: 02/25/20 Note: Surgery Progress Note Please see full dictated H&P by ROSA Lechuga. 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 He was admitted to medicine, but "fell" in his bed so they ED decided to order a CT chest, abdomen, pelvis, which showed free air and thickened sigmoid colon, concerning for a perforated sigmoid. Per the patient and his family, he complained of having syncope and GI bleed overnight, which prompted his family to call for an ambulance. I have reviewed his vital signs, labs and imaging with Dr. Baum. On exam he has tenderness in his LLQ. He has received 1 PRBC. I have discussed surgery at great length with the patient and his daughter. The surgery will be an exploratory laparotomy, possible bowel resection, possible ostomy. The risks include but are no limited to bleeding, infection, injury to nearby structures such as the small bowel, spleen, colon, bladder, ureters and so forth. I discussed that he will almost certainly have an ostomy. There is chance that the ostomy may not be reversed, based on his post operative course and co-morbidities. There is a possibility of intraoperative , prolonged intubation, respiratory failure, multisystem organ failure, post operative abscess, infection, hernia and . The patient and his daughter understand all this and they do wish to proceed.
[2020-02-25] MEDS ORDERED: Norepinephrine 16MCG/ML IVPRE* 4,000 MCG/250 ML BAG IV ONE (10:29)
--- NOTE | 2020-02-25 10:35 | HP ---
CC: Dr. Serenity Martin; Dr. Oleg Oquendo; Dr. Vinod Bowen* DATE OF ADMISSION: 02/25/2020. ATTENDING SURGEON: Dr. Bernie Lozoya* (ROSA Fallon dictating). CHIEF COMPLAINT: Abdominal pain with syncope HISTORY OF PRESENT ILLNESS: This is an 89-year-old male with multiple medical problems whose history is given primarily by his daughter (he is very hard of hearing). She states that he has a background history of prior diverticulitis, though not recently and that he was experiencing "stomach flu" symptoms early in January with associated diarrhea. These symptoms led to lab work which showed an elevated CPK and he was admitted from February 12 to February 17 for dehydration and elevated CPK, the source of which was undetermined. He improved with medical therapy and, in fact, his abdominal cramping and GI symptoms abated during that admission. He was discharged on Prednisone 20 mg after consultation with Rheumatology. More recently, he began to have symptoms of "constipation" and was advised by his primary care provider to start Colace. His normal bowel movements are once a day and formed; however, in the last two days or so, he has had dark stools. His daughter reports that he had a brief episode of syncope yesterday morning and was evaluated by the EMS squad, but not transported to the hospital. Last night around 1:00 a.m., he had had vomiting and diarrhea and was being assisted by his daughter to the bathroom, but felt syncopal and did indeed have a syncopal episode with a controlled fall with assistance by his daughter. At the present time, he does complain of abdominal pain. He was seen and examined with Dr. Lozoya. PAST MEDICAL HISTORY: Ischemic cardiomyopathy with recent echocardiogram in January showing global hypokinesis and an estimated visual ejection fraction of 30 to 35 percent. He is treated for hypertension. He has a remote history of diverticulitis (colonoscopy done in 2013 was an otherwise normal study; he also had undergone and EGD with Dr. Sheikh during the January admission which was essentially negative). He has a history of iron deficiency anemia and his daughter states that he has been in for outpatient transfusions periodically, this on top of a background history of thalassemia minor. He also has a history of GERD, fatty liver and gout. He has still been experiencing some generalized pain presumably related to the rhabdomyolysis. PAST SURGICAL HISTORY: Limited to skin excision for skin cancers, no prior abdominal surgeries. CURRENT MEDICATIONS: 1. Hydrochlorothiazide 12.5 mg once daily. 2. Finasteride 5 mg once daily. 3. Doxazosin 4 mg at bedtime. 4. Metoprolol 12.5 mg once daily. 5. Prednisone 20 mg once daily (since 02/18/2020). 6. Aspirin 81 mg once daily. 7. Potassium Chloride 20 mEq once daily. 8. Torsemide was just prescribed by Dr. Oquendo 10 mg once daily, but not yet initiated. 9. He also has been using Tramadol 50 mg one every 4 to 6 hours prn pain. DRUG ALLERGIES: PROCAINE (NOVOCAINE), reaction not specified. FAMILY HISTORY: Not obtained. SOCIAL HISTORY: The patient lives at home with his . His daughter is in attendance. No tobacco or alcohol use. REVIEW OF SYSTEMS: Otherwise negative, except as noted in the HPI and past medical history. PHYSICAL EXAMINATION GENERAL: Elderly, hard of hearing male in no acute distress. SKIN: Warm and dry, multiple skin lesions not characterized at the present time. VITAL SIGNS: Height 5'8", weight 192. Temperature 97.5, blood pressure 109/65 (up from 73/45), pulse 110, respirations 27, saturation 98 percent on 2 liters. HEENT: Pupils equal and round, arcus senilis, mild conjunctival pallor. Oropharynx: Mucus membranes moist, no intraoral lesions. LUNGS: Clear to auscultation. No rales or wheezes. HEART: Irregularly irregular. Mildly tachycardic. No murmur appreciated. ABDOMEN: Obese, soft with tenderness primary localized to the left lower quadrant. No peritoneal signs. No guarding or rigidity. No palpable masses. EXTREMITIES: 2+ edema bilaterally. GENITALIA: Not done. RECTAL: Not done. NEUROLOGIC: Grossly intact. Decreased hearing acuity. LABORATORY DATA: Laboratory of note: White blood cell count 12,300, hemoglobin 8 (down from recent of 12.3), (he has received 1 unit of packed red cells); INR 1.2; BUN 70, creatinine 1.52, glucose 126, lactic acid 4.9, troponin 0.26. CT scan of the chest, abdomen and pelvis was reviewed personally showing bilateral pleural effusions, free air with a small to moderate amount of ascites. There is hyperemia and inflammatory stranding around the sigmoid colon with what appears to be an area of perforation. IMPRESSION: Likely colonic perforation. PLAN: Operating room for exploratory laparotomy, likely sigmoid colon resection with colostomy. Again, the patient was seen and examined with Dr. Bernie Lozoya. The patient and his daughter concur with the plan. He is aware of the risks, benefits, and alternatives including prolonged need for ventilation and high risk of complications including infection, cardiac problems, and possibly . ROSA FALLON [id number]/[facility] #: [id number] MTDFavian
[2020-02-25] MEDS ORDERED: Propofol* 10 MG/ML 20 ML BTL ONE (11:04)
[2020-02-25] MEDS ORDERED: Phenylephrine 40 MCG/ML SYRINGE ONE (12:17)
[2020-02-25 12:24] LABS: Hematocrit 20 % (42-52); Hemoglobin 6.6 g/dL (14.0-18.0)
[2020-02-25] MEDS ORDERED: Sugammadex * 500 MG/5 ML VIAL IV PUSH ONE (13:57)
[2020-02-25] MEDS ORDERED: HYDROmorphone INJ1* 1 MG/ML SYRINGE ONE (14:09)
[2020-02-25 14:28] LABS: Hematocrit 25 % (42-52); Hemoglobin 8.3 g/dL (14.0-18.0)
--- NOTE | 2020-02-25 15:08 | BRIEFOPN ---
Brief Operative/Procedure Note - Operation Details Pre-Op Diagnosis: Perforated sigmoid colon Post-Op Diagnosis: Perforated sigmoid colon Procedures: Resection of sigmoid colon with end colostomy. Biopsy of mesenteric lymph node. Surgeon(s)/Proceduralists: Dr. Lozoya. Assist: Dr. Robert and ROSA Sullivan Anesthesia: GETA Estimated Blood Loss: <100cc Findings: As above Specimen(s)/Culture(s) Description: Mesenteric lesion, mesenteric lymph node, sigmoid colon Complications: None
[2020-02-25] MEDS: Lactated Ringers 1000 ML Bag* 1,000 ML IV SCH (15:29)
[2020-02-25] MEDS: ZOSYN 3.375 GM Q8H per EXTENDED INFUSION IVPB SCH ×2 (15:58)
[2020-02-25] MEDS ORDERED: Zosyn per Pharmacy* NOTE FOLLOW UP SCH (16:00)
[2020-02-25] MEDS ORDERED: Norepinephrine 16MCG/ML IVPRE* 4,000 MCG/250 ML BAG IV SCH (16:00)
[2020-02-25] MEDS ORDERED: fentaNYL INFUSION 50 MCG/ML* 2,500 MCG/50 ML BAG IV SCH ×2 (16:00→17:04)
[2020-02-25 16:07] LABS: Hematocrit 27 % (42-52); Mean Corpuscular HGB Conc 34 g/dL (31-36); Mean Corpuscular Hemoglobin 26 pg (27-31); Mean Corpuscular Volume 77 fL (80-94); Mean Platelet Volume 8.8 fL (7.4-10.4); Platelet Count 180 10^3/uL (150-450); Red Blood Count 3.51 10^6 /uL (4.18-5.48); Red Cell Distribution Width 16 % (10-15); White Blood Count 4.4 10^3/uL (3.5-10.8)
--- NOTE | 2020-02-25 16:12 | PN ---
Progress Note - Progress Note Date of Service: 02/25/20 Note: Consultation Note -- Critical Care Requesting Physician: Dr Lozoya Reason for consult: ICU medical management Limitations in history/physical: All history obtained from chart and from anesthesia's sign out Date of consult: 02/25/2020 HPI: 89M with known medical history of diverticulitis, ischemic cardiomyopathy ( 01/21 echo: global hypokinesis, EF 30-35%), HTN, iron deficiency and thalassemia minor anemia, DARRON, fatty liver, and gout. Presents on 02/25/20 early AM after experiencing vomiting, diarrhea, syncopal episode with controlled fall with his daughter. Apparently he has been having a few days of dark stools, concerning for GI bleed. He was recently admitted 02/12-02/17 with abdominal pain , "stomach flu" symptoms, dehydration and elevated CPK. At that time, the source of elevated CPK was undetermined. On admission today, CT chest, abdomen, pelvis showed generalized thickening of the descending and sigmoid colon, probable sigmoid perforation, generalized small bowel hyperemia and thickening, pneumoperitoneum and small volume ascites, small bilateral pleural effusions, diverticulosis, cardiomegaly, incidental 8mm pulmonary nodule along right minor fissures. General surgery decided to take him to OR. ROS: ROS unable to be obtained secondary to intubated/sedated PMHx: diverticulitis, ischemic cardiomyopathy ( 01/21 echo: global hypokinesis, EF 30-35%), HTN, iron deficiency and thalassemia minor anemia, GERD, fatty liver , and gout PSHx: skin excisions for skin cancers, otherwise unknown Family History: HENRI Social History: lives at home with his . no reported tobacco or alcohol use Allergies: bee venom protein, procaine Home Medications: Hydrochlorothiazide TAB* [Hydrodiuril TAB*] 12.5 mg PO DAILY 12/11/13 [History Confirmed 02/25/20] Finasteride TAB* [Proscar TAB*] 5 mg PO DAILY 12/29/15 [History Confirmed ] Doxazosin TAB* [Cardura TAB*] 4 mg PO BEDTIME 10/20/18 [History Confirmed ] Metoprolol Succinate XL TAB* [Toprol XL TAB*] 12.5 mg PO DAILY 05/11/19 [ History Confirmed 02/25/20] Amoxicillin PO (*) [Amoxicillin 500 MG CAP*] 2,000 mg PO ONCE 01/18/20 [History Confirmed 02/25/20] Aspirin EC TAB* [Ecotrin EC Low Dose 81 MG*] 81 mg PO DAILY 01/18/20 [History Confirmed 02/25/20] traMADol TAB* [Ultram*] 50 - 100 mg PO Q6H PRN 01/18/20 [History Confirmed 02/24] predniSONE 20 mg TAB [Deltasone 20 MG TAB*] 20 mg PO DAILY #20 tab 02/18/20 [Rx Confirmed 02/25/20] Potassium Chloride [Klor-Con M20] 20 meq PO DAILY 02/25/20 [History Confirmed ] Torsemide TAB* [Demadex*] 10 mg PO DAILY 02/25/20 [History Confirmed 02/25/20] Tele: afib Vitals: Vital Signs 02/25/20 02/25/20 02/25/20 03:03 03:09 03:39 Temperature 97.2 F Pulse Rate 113 93 Respiratory 22 20 19 Rate Blood Pressure 108/58 108/58 (mmHg) O2 Sat by Pulse 100 100 Oximetry 02/25/20 02/25/20 02/25/20 04:00 04:09 04:39 Temperature Pulse Rate 101 90 92 Respiratory 21 4 Rate Blood Pressure (mmHg) O2 Sat by Pulse 93 99 99 Oximetry 02/25/20 02/25/20 02/25/20 04:43 04:51 05:00 Temperature Pulse Rate 94 92 Respiratory 18 Rate Blood Pressure 99/58 108/57 (mmHg) O2 Sat by Pulse 100 99 Oximetry 02/25/20 02/25/20 02/25/20 05:09 05:23 05:39 Temperature Pulse Rate 89 92 Respiratory 21 18 Rate Blood Pressure 132/63 101/61 (mmHg) O2 Sat by Pulse 100 100 Oximetry 02/25/20 02/25/20 02/25/20 06:00 06:09 06:39 Temperature 97.5 F Pulse Rate 96 89 91 Respiratory 19 19 Rate Blood Pressure 108/46 113/58 (mmHg) O2 Sat by Pulse 99 99 100 Oximetry 02/25/20 02/25/20 02/25/20 06:40 07:34 07:39 Temperature Pulse Rate 81 85 81 Respiratory 22 23 Rate Blood Pressure 124/68 109/57 (mmHg) O2 Sat by Pulse 100 100 98 Oximetry 02/25/20 02/25/20 02/25/20 08:17 08:40 09:00 Temperature Pulse Rate 111 93 103 Respiratory 9 23 Rate Blood Pressure 119/67 73/45 (mmHg) O2 Sat by Pulse 98 97 98 Oximetry 02/25/20 02/25/20 02/25/20 09:07 09:09 09:39 Temperature 98.1 F Pulse Rate 97 101 103 Respiratory 27 25 16 Rate Blood Pressure 109/65 120/58 120/58 (mmHg) O2 Sat by Pulse 98 99 99 Oximetry 02/25/20 02/25/20 02/25/20 10:00 10:10 10:11 Temperature 98.6 F Pulse Rate 99 108 91 Respiratory 31 20 4 Rate Blood Pressure 105/62 117/71 129/59 (mmHg) O2 Sat by Pulse 97 97 99 Oximetry 02/25/20 02/25/20 02/25/20 10:15 10:21 10:30 Temperature Pulse Rate 97 101 99 Respiratory 19 19 26 Rate Blood Pressure 129/66 132/68 (mmHg) O2 Sat by Pulse 98 99 97 Oximetry 02/25/20 02/25/20 02/25/20 15:19 15:30 15:45 Temperature Pulse Rate 88 82 97 Respiratory Rate Blood Pressure (mmHg) O2 Sat by Pulse 100 100 100 Oximetry 02/25/20 02/25/20 02/25/20 15:52 15:57 16:00 Temperature 96.7 F 96.7 F Pulse Rate 106 91 Respiratory 17 17 17 Rate Blood Pressure 125/55 (mmHg) O2 Sat by Pulse 100 100 Oximetry 02/25/20 02/25/20 16:15 16:30 Temperature Pulse Rate 93 83 Respiratory Rate Blood Pressure (mmHg) O2 Sat by Pulse 100 100 Oximetry Intake and Output Last 24 Hours 02/23/20 02/24/20 02/25/20 02/26/20 06:59 06:59 06:59 06:59 Intake Total 1000 Output Total 100 Balance 900 Weight 192 lb Intake: IV Fluids 1000 Output: Donovan 100 Vent: vented cmv Infusions: levo @ 4 Current Medications: Chlorhexidine Gluconate (Peridex Mouth Wash 0.12%*) 15 ml TOPICAL Q4H COLBY Famotidine (Pepcid Iv*) 20 mg IV SLOW PU BID COLBY Fentanyl Citrate (Fentanyl Infusion Bag 50 Mcg/Ml 50 Ml) 2,500 mcg in 50 mls @ 0.25 mls/hr IV .PER PROTOCOL COLBY; Protocol Last Admin: 02/25/20 15:57 Dose: 1 mls/hr Lactated Ringer's (Lactated Ringers 1000 Ml Bag*) 1,000 mls @ 50 mls/hr IV PER RATE [facility] Last Admin: 02/25/20 15:29 Dose: 50 mls/hr Piperacillin Sod/Tazobactam (Sod 3.375 gm/ Sodium Chloride) 100 mls @ 25 mls/ hr IVPB Q8H [facility] Last Admin: 02/25/20 15:58 Dose: 25 mls/hr Norepinephrine Bitartrate (Levophed 16 Mcg/Ml Premix*) 4,000 mcg in 250 mls @ 18.75 mls/hr IV .PER PROTOCOL COLBY; Protocol Pharmacy Consult (Zosyn Per Pharmacy*) 1 note FOLLOW UP .ZOSYN PER PHARMACY [facility] Physical Exam: Constitutional: sedated, just given versed by anesthesia. No distress, no diaphoresis. Intubated in bed Head: normocephalic, atraumatic, dry skin Eyes: no pallor, no icterus ENT: moist mucous membranes Neck: soft, supple CVS: irregular, normal rate, no murmur Chest/Resp: bilateral air entry, no rhales, no wheeze, no rhonchi, no acc muscle use Abdomen/GI: soft, nontender, nondistended, BS absent Ext/Msk: warm, pulses+, generalized edema, pitting edema all extremities Skin: intact, cool Neuro: sedated, recently given versed, does not open eyes, or follow commands. Breathing above vent. Labs: Laboratory Results - last 24 hr 02/25/20 02/25/20 02/25/20 03:54 03:54 03:54 WBC RBC Hgb Hct MCV MCH MCHC RDW Plt Count MPV Neut % (Auto) Lymph % (Auto) [place] % (Auto) Eos % (Auto) Baso % (Auto) Absolute Neuts (auto) Absolute Lymphs (auto) Absolute Monos (auto) Absolute Eos (auto) Absolute Basos (auto) Absolute Nucleated RBC Nucleated RBC % INR (Anticoag Therapy) 1.20 H Sodium 136 Potassium 4.3 Chloride 107 Carbon Dioxide 20 L Anion Gap 9 BUN 70 H Creatinine 1.52 H Est GFR ( Amer) 52.8 Est GFR (Non-Af Amer) 43.6 BUN/Creatinine Ratio 46.1 H Glucose 126 H Lactic Acid 4.9 H* Calcium 6.7 L Magnesium 1.9 Total Bilirubin 0.40 AST 88 H ALT 44 Alkaline Phosphatase 53 Troponin I 0.26 H* Total Protein 3.7 L Albumin 1.7 L Globulin 2.0 Albumin/Globulin Ratio 0.9 L TSH 1.56 Blood Type Antibody Screen Crossmatch 02/25/20 02/25/20 02/25/20 03:54 05:20 12:00 WBC 12.3 H RBC 3.13 L Hgb 8.0 L Hct 25 L MCV 80 MCH 26 L MCHC 32 RDW 16 H Plt Count 185 MPV 9.3 Neut % (Auto) 92.2 Lymph % (Auto) 1.9 [place] % (Auto) 5.6 Eos % (Auto) 0.1 Baso % (Auto) 0.2 Absolute Neuts (auto) 11.3 H Absolute Lymphs (auto) 0.2 L Absolute Monos (auto) 0.7 Absolute Eos (auto) 0.0 Absolute Basos (auto) 0.0 Absolute Nucleated RBC 0.0 Nucleated RBC % 0.1 INR (Anticoag Therapy) Sodium Potassium Chloride Carbon Dioxide Anion Gap BUN Creatinine Est GFR ( Amer) Est GFR (Non-Af Amer) BUN/Creatinine Ratio Glucose Lactic Acid 2.3 H* Calcium Magnesium Total Bilirubin AST ALT Alkaline Phosphatase Troponin I Total Protein Albumin Globulin Albumin/Globulin Ratio TSH Blood Type O Positive Antibody Screen Negative Crossmatch See Detail 02/25/20 02/25/20 02/25/20 12:00 14:20 15:50 WBC 4.4 RBC 3.51 L Hgb 6.6 L 8.3 L 9.0 L Hct 20 L 25 L 27 L MCV 77 L MCH 26 L MCHC 34 RDW 16 H Plt Count 180 MPV 8.8 Neut % (Auto) Lymph % (Auto) [place] % (Auto) Eos % (Auto) Baso % (Auto) Absolute Neuts (auto) Absolute Lymphs (auto) Absolute Monos (auto) Absolute Eos (auto) Absolute Basos (auto) Absolute Nucleated RBC Nucleated RBC % INR (Anticoag Therapy) Sodium Potassium Chloride Carbon Dioxide Anion Gap BUN Creatinine Est GFR ( Amer) Est GFR (Non-Af Amer) BUN/Creatinine Ratio Glucose Lactic Acid Calcium Magnesium Total Bilirubin AST ALT Alkaline Phosphatase Troponin I Total Protein Albumin Globulin Albumin/Globulin Ratio TSH Blood Type Antibody Screen Crossmatch 02/25/20 15:50 WBC RBC Hgb Hct MCV MCH MCHC RDW Plt Count MPV Neut % (Auto) Lymph % (Auto) [place] % (Auto) Eos % (Auto) Baso % (Auto) Absolute Neuts (auto) Absolute Lymphs (auto) Absolute Monos (auto) Absolute Eos (auto) Absolute Basos (auto) Absolute Nucleated RBC Nucleated RBC % INR (Anticoag Therapy) Sodium Potassium Chloride Carbon Dioxide Anion Gap BUN Creatinine Est GFR ( Amer) Est GFR (Non-Af Amer) BUN/Creatinine Ratio Glucose Lactic Acid 1.4 Calcium Magnesium Total Bilirubin AST ALT Alkaline Phosphatase Troponin I Total Protein Albumin Globulin Albumin/Globulin Ratio TSH Blood Type Antibody Screen Crossmatch Imaging: see emr Assessment: 89M with known medical history of diverticulitis, ischemic cardiomyopathy ( 01/21 echo: global hypokinesis, EF 30-35%), HTN, iron deficiency and thalassemia minor anemia, DARRON, fatty liver, and gout. Presents on 02/25/20 early AM after experiencing vomiting, diarrhea, syncopal episode with controlled fall with his daughter. Apparently he has been having a few days of dark stools, concerning for GI bleed. He was recently admitted 02/12- with abdominal pain, "stomach flu" symptoms, dehydration and elevated CPK. At that time, the source of elevated CPK was undetermined. On admission today, CT chest, abdomen, pelvis showed generalized thickening of the descending and sigmoid colon, probable sigmoid perforation, generalized small bowel hyperemia and thickening, pneumoperitoneum and small volume ascites, small bilateral pleural effusions, diverticulosis, cardiomegaly, incidental 8mm pulmonary nodule along right minor fissures. General surgery decided to take him to OR. He underwent sigmoid resection with end colostomy. Given 2UPRBC, plenty of IVF, wound vac and RADHA in place on arrival., Plan: Neuro- - Sedated -Delirium prec; avoid BDZ CVS- - HTN: chronic. hypotensive on arrival requiring levo. Has mottling to extremities. Will aim for MAP around 70-75 -Titrate Pressors to Maintain MAP>70 - New onset afib: noted to have irregular rhythm on monitor, EKG confirmed afib. Likely new onset but clear past medical history is unclear and unavailable - Will need to consider anticoagulation when cleared by surgery Resp- - Will keep intubated post op -Wean Fio2 to keep sat>92% -Bronchodilators PRN, Aspiration prec, Pulmonary Toilet -VAP bundle ID- - Sepsis: acute. Likely d/t bowel perf. Continue zosyn. Monitor CBC GI- -Nutrition: NPO -GI prophylaxis pepcid Renal- -strict I/O, replete to keep K>4, Mg>2 -donovan as indicated - MT: likely d/t sepsis. Continue light hydration Heme- - Hx iron deficiency and thalasemia minor: chronic. - Concern of GI bleed/dark stools last couple days. Was given 2UPRBC in OR. - Goal hgb>7 Endo- Maintain BG<200, insulin protocol as needed Musculsk- pressure ulcer prophylaxis. Bedrest. Wounds- none Nutrition- npo DVT prophylaxis: scds GI prophylaxis: pepcid Central Line: right IJ Arterial Line: left radial Donovan Cathetor: continue Disposition: Admit to ICU; Expected LOS>2 midnights; Patient requires Critical Care/ICU for sepsis, bowel perforation, hypotension, anemia, ?GI bleed Patient Clinical Status: critical Code Status:full Total Critical Care time is 60 minutes
[2020-02-25] MEDS ORDERED: fentaNYL* 50 MCG/ML 2 ML VIAL (100 MCG VIAL) IV SLOW PU STA (17:04)
[2020-02-25] MEDS: Chlorhexidine MOUTHWASH 0.12%* 15 ML UDC TOPICAL SCH ×2 (17:10→21:01)
[2020-02-25] MEDS: Famotidine IV* 10 MG/ML 2 ML (20 mg) IV SLOW PU SCH (21:01)
--- NOTE | 2020-02-25 23:13 | OP ---
DATE OF OPERATION: 02/25/20 - ROOM #ICU-01 DATE OF : 32 SERVICE: General surgery. ATTENDING SURGEON: Bernie Lozoya MD. ASSISTANTS: 1. Golden Robert MD 2. ROSA Petty. ANESTHESIOLOGIST: Dr. Joan Calvin. PRE-OP DIAGNOSIS: Perforated viscus. POST-OP DIAGNOSES: Perforated sigmoid colon and mesenteric lymphadenopathy. OPERATIVE PROCEDURE: Exploratory laparotomy, sigmoid resection and end colostomy, biopsy of bulky small bowel mesentery, placement of right internal jugular triple lumen catheter ESTIMATED BLOOD LOSS: Approximately 100 cc. COMPLICATIONS: None. INDICATIONS FOR SURGERY: Mr. Perez is an 89-year-old gentleman with a history of nonischemic cardiomyopathy and a recent hospitalization for myositis , who presented to the emergency room with complaints of syncope and GI bleeding that occurred overnight. On CT of the abdomen and pelvis, free air was identified as well as extensive ascites, hyperemic small bowel, and a thickened sigmoid colon that appeared to be consistent with a sigmoid colon perforation. The patient preoperatively was tachycardic and hypotensive. His creatinine was elevated to 1.52. His lactate was elevated to 4.9 and he had an elevated troponin of 0.26. His daughter was present in the emergency room. He understood the indications for surgery and that the risks include, but were not limited to bleeding, infection, injury to nearby structures such as the ureters , bladder, small bowel, spleen, the possibility for a prolonged mechanical ventilation, multisystem organ failure, and . He understood the alternatives and benefits, and wished to proceed. DESCRIPTION OF PROCEDURE: The patient was brought back to the operating room and placed on the operating table in the supine position. Sequential compression devices were placed on the bilateral lower extremities for DVT prophylaxis. Antibiotics were administered. Prior to intubation, the patient underwent placement of a left arterial line by Dr. Calvin, and I placed his right internal jugular vein triple lumen catheter myself. After sterilely prepping his right neck in a normal sterile fashion, under ultrasound guidance, 1% lidocaine was injected into the subcutaneous tissue overlying his right internal jugular vein. Under ultrasound guidance, the internal jugular vein was entered with a finder needle and dark venous blood was aspirated. The wire was then advanced through the finder needle and moving very easily back and forth. The needle was then removed and then an ultrasound probe was used again to confirm that the wire was placed within the internal jugular vein. A small gabe was made over the wire, the dilator was placed over the wire and removed. Then the triple-lumen catheter was then placed over the wire itself and the wire was removed. Prior to this, the triple-lumen catheter had been flushed with normal saline. The blood was easily aspirated and flushed at all 3 ports, which was then closed off with Luer locks. The triple- lumen catheter was secured to his neck using 0 silk suture. A sterile dressing was then placed and then after this was completed, Dr. Calvin proceeded with intubating the patient. After general endotracheal anesthesia was induced, the patient's abdomen was then prepped and draped in a normal sterile fashion. A Muniz catheter placed. Next, a time-out was performed verifying the patient's name, date of , and the procedure to be performed. Next, a #10 blade was used to make a midline laparotomy incision from the upper mid abdomen down to the pubis. The skin was divided down to the subcutaneous tissue. The fascia was identified. The decussation of fibers was identified and then divided. Once this was done, the peritoneum was elevated between two DeBakey's and divided sharply with scissors. The abdomen was then entered. There was copious amounts of purulent fluid that was expressed and evacuated using suction. After this was done, the incision was extended inferiorly towards the lower extent of just above the pubis. Once this was done, all of the purulent fluid was mostly aspirated and cultures were also obtained. An extra large wound protector was also placed with an abdominal cavity for assistance with retraction and to protect the skin edges. Attention was turned towards the sigmoid colon given that this was the area of greatest suspicion. There was an area of necrotic sigmoid colon that was very adherent to the left lateral pelvic sidewall. There was no obvious perforation identified initially. At this point, attention was then turned towards exploring the remainder of the abdominal cavity to confirm that there was no other potential perforation or pathology. The stomach was examined. The NG tube was felt within the body of the stomach and the stomach appeared to be soft and without any apparent injury. The small bowel was run from the terminal ileum all the way to the ligament of Treitz. The appendix was also examined, it was slightly hyperemic, but this was thought to be likely from secondary inflammation. The mid small bowel appeared to be somewhat dilated but viable. No gross small bowel masses were palpable. However, the mesentery of the small bowel was extremely thickened and bulbous. There was concern that the bulkiness may be due to enlarged lymph nodes. Therefore, several biopsies were taken. One small superficial implant was excised. The peritoneum overlying the thickened mesentery itself was opened and deeper within a biopsy sample was taken of the deep lymph node.. The frozen biopsies were then sent to the pathologist who confirmed that the first specimen was fatty necrosis, the second one also appeared to just be benign fat, and then the third one appeared to be a lymph node, but he could not ascertain if there was a malignancy present. The colon was also examined. The transverse colon appeared to be normal as well as the cecum, ascending colon, and the descending colon. Therefore, attention was then returned back to the point of pathology, which was the sigmoid colon. The distal sigmoid colon was extremely healthy and soft. A distal transection site was selected just below where the inflamed and thickened sigmoid colon was. A window was made in the mesentery and a 60 TA stapler was used to staple across the distal aspect. Next, the mesentery was divided very closely to the sigmoid colon in order to avoid any sort of injury to the retroperitoneum. Once the division of the mesentery was closer to the area where the sigmoid colon was stuck down to the pelvic sidewall, care was taken to divide this point of adherence using finger fracture and also electrocautery. At this point, it was very clear that this was the area of perforation. It appeared that this was likely a contained perforation. Once this area of sigmoid colon was freed off of the sidewall, there was stool that emanated from a perforation within this thickened area of sigmoid colon. The epiploic also were extremely inflamed and necrotic appearing. Once this area of sigmoid colon was freed up, the white line of Toldt was divided all the up to the descending colon proximal towards the splenic flexure in order to mobilize the descending colon. An area was selected proximal to where this thickened sigmoid colon was. The patient had diverticula all throughout the descending colon. A soft healthy appearing area of descending colon was selected at the proximal resection site. A window was made in the mesentery and the mesentery was cleared off of the bowel wall. After this, EndoGIA stapler was used to staple across the proximal transection site and the sigmoid colon mesentery was then divided using the Impact LigaSure, and then the diseased sigmoid colon was then taken off the table as a specimen. Next, the attention was turned towards the abdominal cavity where the transection was performed. Again, the mesentery was taken extremely closely to the sigmoid colon and the sigmoid colon had also been mobilized off the retroperitoneum to protect the ureter. The patient was also obese, so it was somewhat difficult to mobilize his descending colon. Next, the abdomen was irrigated copiously with 4 L of warm normal saline until the fluid returned as clear. Care was taken to irrigate over the liver bed, in the left upper quadrant and also the pelvis. A #10 RADHA drain was also placed in the pelvis and secured to the abdominal wall using 0 Prolene suture. After this was done, attention was turned towards creating the exit site for the end colostomy. A circular disk of skin was excised down to subcutaneous tissue in the left lower quadrant over the rectus muscle just below the umbilicus. A cruciate incision was made through the fascia and then the rectus muscle was split bluntly until the peritoneum was identified and then elevated and divided, and 2 fingers could be easily entered through the opening. At this point, the descending colon was delivered through the opening. It seemed to come up fairly well through the colostomy opening and was easier to bring up once some of the epiploica were divided. After this, the attention was then turned towards closure of the abdominal wall. The fascia of the abdominal wall was closed using running #1 loop PDS suture. The skin was closed using petty, and then a Prevena Vac was then placed at the end of the case. The ostomy was then matured. After closure of the abdominal wall there was some difficulty with retraction of the descending colon, likely because of how edematous the abdominal wall was. The staple line was divided and then ostomy was then matured using interrupted Vicryl sutures. At the end of the case, colostomy aperture was placed over it and then the patient was taken to ICU in critical condition. He remained on vasopressors and had been transfused blood during the surgery as well. At the end of the case, all counts were correct and I was present during the case. [id number]/[facility] #: [id number] [facility] MEDICAL CENTERFavian
[2020-02-26] MEDS: Norepinephrine 16MCG/ML IVPRE* 4,000 MCG/250 ML BAG IV SCH ×4 (00:05→11:20)
[2020-02-26] MEDS: ZOSYN 3.375 GM Q8H per EXTENDED INFUSION IVPB SCH ×8 (00:05→23:54)
[2020-02-26] MEDS: Chlorhexidine MOUTHWASH 0.12%* 15 ML UDC TOPICAL SCH ×5 (00:05→15:16)
[2020-02-26] MEDS: Lactated Ringers 1000 ML Bag* 1,000 ML IV SCH ×2 (00:05→23:55)
[2020-02-26] MEDS ORDERED: Amiodarone DRIP 150 MG in D5W 100 ML *LOADING DOSE* OVER 10 MIN IV ONE (01:00)
[2020-02-26] MEDS ORDERED: Amiodarone DRIP* 1.8 MG/ML 200 ML IV ONE (01:10)
[2020-02-26] MEDS: Propofol* 100 ML IV SCH ×2 (02:10→12:04)
[2020-02-26] MEDS ORDERED: Magnesium Sulfate 2 GM IV (Premix) IVPB ONE (03:30)
[2020-02-26] MEDS ORDERED: Digoxin IV* 0.5 MG/2 ML AMP (0.25 MG/ML) IV SLOW PU ONE (03:30)
[2020-02-26 04:16] LABS: Hematocrit 25 % (42-52); Hemoglobin 8.4 g/dL (14.0-18.0); Mean Corpuscular HGB Conc 33 g/dL (31-36); Mean Corpuscular Hemoglobin 26 pg (27-31); Mean Corpuscular Volume 77 fL (80-94); Mean Platelet Volume 8.4 fL (7.4-10.4); Platelet Count 233 10^3/uL (150-450); Red Blood Count 3.29 10^6 /uL (4.18-5.48); Red Cell Distribution Width 16 % (10-15); White Blood Count 11.9 10^3/uL (3.5-10.8)
[2020-02-26 04:30] LABS: BUN/Creatinine Ratio 51.9 (8-20); Calcium 6.7 mg/dL (8.6-10.3); EGFR Non-African American 42.9 (>60); Magnesium 1.7 mg/dL (1.9-2.7); Phosphorus 3.7 mg/dL (2.5-5.0); Potassium 4.6 mmol/L (3.5-5.0)
[2020-02-26] MEDS: Phenylephrine INJ* 50 MG in NS 0.9% IV SCH ×2 (04:45→09:48)
[2020-02-26] MEDS ORDERED: Magnesium Sulfate 2 GM IV* 2 GM/50 ML BAG IVPB ONE (05:36)
[2020-02-26] MEDS ORDERED: Amiodarone 360 MG IVPREMIX* 360 MG/200 ML BAG IV SCH (07:10)
[2020-02-26] MEDS ORDERED: Metoprolol Tartrate IV* 1 MG/ML 5 ML VIAL ONE (08:04)
[2020-02-26] MEDS: Famotidine IV* 10 MG/ML 2 ML (20 mg) IV SLOW PU SCH ×2 (08:08→21:33)
[2020-02-26] MEDS ORDERED: Metoprolol Tartrate IV* 1 MG/ML 5 ML VIAL IV ONE (09:00)
--- NOTE | 2020-02-26 09:39 | PN ---
Progress Note - Progress Note Date of Service: 02/26/20 Note: Surgery Progress Note S: Patient was in afib with RVR overnight, which broke this morning on diltiazem. He also has been placed on airborne precautions for a COVID-19 testing that is still pending. O: Vital Signs - 24 hr 02/25/20 02/25/20 02/25/20 09:39 10:00 10:10 Temperature 98.1 F 98.6 F Pulse Rate 103 99 108 Respiratory 16 31 20 Rate Blood Pressure 120/58 105/62 117/71 (mmHg) O2 Sat by Pulse 99 97 97 Oximetry 02/25/20 02/25/20 02/25/20 10:11 10:15 10:21 Temperature Pulse Rate 91 97 101 Respiratory 4 19 19 Rate Blood Pressure 129/59 129/66 (mmHg) O2 Sat by Pulse 99 98 99 Oximetry 02/25/20 02/25/20 02/25/20 10:30 15:00 15:19 Temperature Pulse Rate 99 88 Respiratory 26 17 Rate Blood Pressure 132/68 (mmHg) O2 Sat by Pulse 97 100 Oximetry 02/25/20 02/25/20 02/25/20 15:30 15:45 15:52 Temperature 96.7 F Pulse Rate 82 97 106 Respiratory 17 Rate Blood Pressure 125/55 (mmHg) O2 Sat by Pulse 100 100 100 Oximetry 02/25/20 02/25/20 02/25/20 15:57 16:00 16:15 Temperature 96.7 F Pulse Rate 91 93 Respiratory 17 17 Rate Blood Pressure (mmHg) O2 Sat by Pulse 100 100 Oximetry 02/25/20 02/25/20 02/25/20 16:30 16:45 17:00 Temperature Pulse Rate 83 98 81 Respiratory 16 Rate Blood Pressure (mmHg) O2 Sat by Pulse 100 100 100 Oximetry 02/25/20 02/25/20 02/25/20 17:11 17:30 17:45 Temperature Pulse Rate 81 77 Respiratory 16 Rate Blood Pressure (mmHg) O2 Sat by Pulse 100 100 Oximetry 02/25/20 02/25/20 02/25/20 18:00 18:15 18:30 Temperature Pulse Rate 107 107 97 Respiratory 16 Rate Blood Pressure (mmHg) O2 Sat by Pulse 99 100 100 Oximetry 02/25/20 02/25/20 02/25/20 18:45 19:00 19:15 Temperature Pulse Rate 92 67 98 Respiratory 14 Rate Blood Pressure (mmHg) O2 Sat by Pulse 100 100 100 Oximetry 02/25/20 02/25/20 02/25/20 19:30 19:45 20:00 Temperature Pulse Rate 106 100 97 Respiratory 11 Rate Blood Pressure (mmHg) O2 Sat by Pulse 100 100 100 Oximetry 02/25/20 02/25/20 02/25/20 20:15 20:30 20:45 Temperature Pulse Rate 92 113 90 Respiratory Rate Blood Pressure (mmHg) O2 Sat by Pulse 100 100 97 Oximetry 02/25/20 02/25/20 02/25/20 21:00 21:15 21:30 Temperature 98.8 F 98.8 F Pulse Rate 111 89 112 Respiratory 11 Rate Blood Pressure (mmHg) O2 Sat by Pulse 96 100 100 Oximetry 02/25/20 02/25/20 02/25/20 21:45 22:00 22:15 Temperature 99.0 F 99.1 F 99.1 F Pulse Rate 101 100 110 Respiratory 11 Rate Blood Pressure (mmHg) O2 Sat by Pulse 100 100 100 Oximetry 02/25/20 02/25/20 02/25/20 22:30 22:45 23:00 Temperature 99.3 F 99.3 F 99.3 F Pulse Rate 102 108 89 Respiratory 11 Rate Blood Pressure (mmHg) O2 Sat by Pulse 100 100 100 Oximetry 02/25/20 02/25/20 02/25/20 23:02 23:15 23:30 Temperature 99.3 F 99.5 F 99.5 F Pulse Rate 113 96 97 Respiratory Rate Blood Pressure (mmHg) O2 Sat by Pulse 100 100 99 Oximetry 02/25/20 02/26/20 02/26/20 23:45 00:00 00:15 Temperature 99.5 F 99.7 F 99.7 F Pulse Rate 119 107 105 Respiratory 13 Rate Blood Pressure (mmHg) O2 Sat by Pulse 99 100 100 Oximetry 02/26/20 02/26/20 02/26/20 00:30 00:45 01:00 Temperature 99.7 F 99.7 F 99.7 F Pulse Rate 117 103 121 Respiratory 11 Rate Blood Pressure (mmHg) O2 Sat by Pulse 100 100 100 Oximetry 02/26/20 02/26/20 02/26/20 01:15 01:30 01:45 Temperature 99.7 F 99.7 F 99.7 F Pulse Rate 113 115 107 Respiratory Rate Blood Pressure (mmHg) O2 Sat by Pulse 100 100 100 Oximetry 02/26/20 02/26/20 02/26/20 02:00 02:15 02:30 Temperature 99.7 F 99.7 F 99.7 F Pulse Rate 109 135 113 Respiratory 14 Rate Blood Pressure (mmHg) O2 Sat by Pulse 100 100 100 Oximetry 02/26/20 02/26/20 02/26/20 02:45 03:00 03:15 Temperature 99.7 F 99.7 F 99.7 F Pulse Rate 148 137 140 Respiratory 14 Rate Blood Pressure (mmHg) O2 Sat by Pulse 99 99 98 Oximetry 02/26/20 02/26/20 02/26/20 03:30 03:42 03:45 Temperature 99.7 F 99.7 F Pulse Rate 137 160 132 Respiratory Rate Blood Pressure (mmHg) O2 Sat by Pulse 98 98 Oximetry 02/26/20 02/26/20 02/26/20 04:00 04:15 04:30 Temperature 99.9 F 99.9 F 99.9 F Pulse Rate 124 134 147 Respiratory 11 Rate Blood Pressure (mmHg) O2 Sat by Pulse 99 98 98 Oximetry 02/26/20 02/26/20 02/26/20 04:45 05:00 05:15 Temperature 99.9 F 99.9 F 99.9 F Pulse Rate 161 139 139 Respiratory 11 Rate Blood Pressure (mmHg) O2 Sat by Pulse 98 98 97 Oximetry 02/26/20 02/26/20 02/26/20 05:25 05:30 05:35 Temperature 99.9 F 99.9 F 99.9 F Pulse Rate 132 136 139 Respiratory Rate Blood Pressure (mmHg) O2 Sat by Pulse 98 98 98 Oximetry 02/26/20 02/26/20 02/26/20 05:40 05:45 05:50 Temperature 99.9 F 99.9 F 99.9 F Pulse Rate 129 118 125 Respiratory Rate Blood Pressure (mmHg) O2 Sat by Pulse 98 98 98 Oximetry 02/26/20 02/26/20 02/26/20 05:55 06:00 06:05 Temperature 99.9 F 99.9 F 99.9 F Pulse Rate 128 140 138 Respiratory 12 Rate Blood Pressure (mmHg) O2 Sat by Pulse 98 98 98 Oximetry 02/26/20 02/26/20 02/26/20 06:10 06:15 06:20 Temperature 99.9 F 99.9 F 99.9 F Pulse Rate 127 134 138 Respiratory Rate Blood Pressure (mmHg) O2 Sat by Pulse 98 98 98 Oximetry 02/26/20 02/26/20 02/26/20 06:25 06:30 06:35 Temperature 99.9 F 99.9 F 99.9 F Pulse Rate 117 137 114 Respiratory Rate Blood Pressure (mmHg) O2 Sat by Pulse 98 98 98 Oximetry 02/26/20 02/26/20 02/26/20 06:40 06:45 06:50 Temperature 99.9 F 99.9 F 99.9 F Pulse Rate 117 127 109 Respiratory Rate Blood Pressure (mmHg) O2 Sat by Pulse 98 98 98 Oximetry 02/26/20 02/26/20 02/26/20 06:55 07:00 07:05 Temperature 99.9 F 99.9 F 99.9 F Pulse Rate 122 138 127 Respiratory 14 Rate Blood Pressure (mmHg) O2 Sat by Pulse 98 98 98 Oximetry 02/26/20 02/26/20 02/26/20 07:10 07:15 07:20 Temperature 99.7 F 99.7 F 99.7 F Pulse Rate 115 127 103 Respiratory Rate Blood Pressure (mmHg) O2 Sat by Pulse 98 98 98 Oximetry 02/26/20 02/26/20 02/26/20 07:25 07:30 07:35 Temperature 99.7 F 99.7 F 99.7 F Pulse Rate 123 128 133 Respiratory Rate Blood Pressure (mmHg) O2 Sat by Pulse 98 98 98 Oximetry 02/26/20 02/26/20 02/26/20 07:40 07:45 07:50 Temperature 99.7 F 99.7 F 99.7 F Pulse Rate 119 133 120 Respiratory Rate Blood Pressure (mmHg) O2 Sat by Pulse 98 98 98 Oximetry 02/26/20 02/26/20 02/26/20 07:55 08:00 08:05 Temperature 99.7 F 99.7 F 99.7 F Pulse Rate 128 131 129 Respiratory 14 Rate Blood Pressure (mmHg) O2 Sat by Pulse 98 98 98 Oximetry 02/26/20 02/26/20 02/26/20 08:10 08:15 08:20 Temperature 99.7 F 99.7 F 99.7 F Pulse Rate 112 132 89 Respiratory Rate Blood Pressure (mmHg) O2 Sat by Pulse 98 98 100 Oximetry 02/26/20 02/26/20 02/26/20 08:25 08:30 08:35 Temperature 99.7 F 99.5 F Pulse Rate 79 78 79 Respiratory Rate Blood Pressure (mmHg) O2 Sat by Pulse 100 99 98 Oximetry 02/26/20 02/26/20 02/26/20 08:40 08:45 08:50 Temperature Pulse Rate 81 93 83 Respiratory Rate Blood Pressure (mmHg) O2 Sat by Pulse 99 92 99 Oximetry 02/26/20 02/26/20 02/26/20 08:55 09:00 09:05 Temperature Pulse Rate 77 86 81 Respiratory 14 Rate Blood Pressure 116/61 (mmHg) O2 Sat by Pulse 99 100 99 Oximetry 02/26/20 02/26/20 09:06 09:10 Temperature Pulse Rate 78 79 Respiratory Rate Blood Pressure (mmHg) O2 Sat by Pulse 100 100 Oximetry Laboratory Results - last 24 hr 02/25/20 02/25/20 02/25/20 03:54 12:00 12:00 WBC RBC Hgb 6.6 L Hct 20 L MCV MCH MCHC RDW Plt Count MPV Sodium Potassium Chloride Carbon Dioxide Anion Gap BUN Creatinine Est GFR ( Amer) Est GFR (Non-Af Amer) BUN/Creatinine Ratio Glucose Lactic Acid 2.3 H* Calcium Phosphorus Magnesium Blood Type O Positive Antibody Screen Negative Crossmatch See Detail 02/25/20 02/25/20 02/25/20 14:20 15:50 15:50 WBC 4.4 RBC 3.51 L Hgb 8.3 L 9.0 L Hct 25 L 27 L MCV 77 L MCH 26 L MCHC 34 RDW 16 H Plt Count 180 MPV 8.8 Sodium Potassium Chloride Carbon Dioxide Anion Gap BUN Creatinine Est GFR ( Amer) Est GFR (Non-Af Amer) BUN/Creatinine Ratio Glucose Lactic Acid 1.4 Calcium Phosphorus Magnesium Blood Type Antibody Screen Crossmatch 02/26/20 02/26/20 04:00 04:00 WBC 11.9 H RBC 3.29 L Hgb 8.4 L Hct 25 L MCV 77 L MCH 26 L MCHC 33 RDW 16 H Plt Count 233 MPV 8.4 Sodium 136 Potassium 4.6 Chloride 110 Carbon Dioxide 19 L Anion Gap 7 BUN 80 H Creatinine 1.54 H Est GFR ( Amer) 52.0 Est GFR (Non-Af Amer) 42.9 BUN/Creatinine Ratio 51.9 H Glucose 128 H Lactic Acid Calcium 6.7 L Phosphorus 3.7 Magnesium 1.7 L Blood Type Antibody Screen Crossmatch Intake & Output 02/25/20 02/26/20 02/26/20 22:59 06:59 14:59 Intake Total 146 882 30 Output Total 290 419 270 Balance -144 463 -240 Weight 192 lb 208 lb Intake: Medicated IV 146 882 CC - Amiodarone 239 CC - Norepinephrine/ 104 595 Levophed CC - Propofol/Diprivan 42 aneta 48 Oral 0 Tube Feeding Flush Amount 30 Output: RADHA #1 150 160 110 Muniz 140 259 160 Physical exam: General: elderly man, intubated, sedated Abdomen: edematous, somewhat distended, midline incision with overlying Provena vac present. LLQ colostomy with serosanguinous fluid in bag; appears beefy red mucosa Ext: edema A/P: 89 M with non ischemic cardiomyopathy who presented with anemia, syncope and findings on CT A/P of perforated viscous, POD 1 from ex lap, Jose L's procedure for perforated sigmoid colon, remains in critical condition. - Appreciate ICU care, discussed case with Dr. Champagne. - Neuro: currently sedated - CV: ICM, depressed EF 30-35%; new onset atrial fibrillation now in NSR on MTP. Patient with recent acute and profound GIB (prior admission Hct in high 30s and presented yesterday with Hct 25. He was transfused total 2 prbc yesterday. Continue MTP. On levophed. - Resp: intubated; COVID 19 testing pending, will be extubated per ICU team - ID: Zosyn empirically; intraoperative cx pending, prelim no organisms seen. COVID 19 pending, on airborne precautions - Renal: UOP marginal, continue FC, IVF - Ppx: holding HSQ because of acute anemia, GIB; when Hct stable should restart , on pepcid - GI: awaiting bowel function from ostomy, continue NGT for now
[2020-02-26] MEDS: fentaNYL* 50 MCG/ML 2 ML VIAL (100 MCG VIAL) IV SLOW PU PRN (18:03)
--- NOTE | 2020-02-26 18:04 | PN ---
Date of Service: 02/26/20 Critical Care Services: Mr. Perez is alert after being extubated today. He appears comfortable but has noted abdominal pain to nursing staff today for which he was given additional fentanyl. Patient had afib with RVR throughout the night and this AM. Now controlled with addition of metoprolol. Extubated successfully this afternoon. Vital Signs: Temp Pulse Resp BP SpO2 FiO2 99.5 F 104 28 131/77 96 25 02/26/20 08:30 02/26/20 18:00 02/26/20 18:00 02/26/20 09:16 02/26/20 18:00 02/25 12:00 Physical Exam: General: Alert, NAD HEENT: Normocephalic, atraumatic, non-icteric sclera, moist oral mucosa Neck: soft, supple, no JVD CV: Irregular, no murmurs or rubs Pulm/Chest: Few crackles in the base, that clear with deep breaths Abdomen/GI: soft, generalized mild tenderness, RADHA drain in LLQ with serosanginous drainage, colostomy in situ MSK/Skin: cool, 2+ edema Neuro: A&Ox3, no gross focal deficits Psych: Appropriate affect Fluid Balance (Past 24 Hours): I= 4816 O= 949 Net= 3867 Intake & Output 02/24/20 02/25/20 02/26/20 02/27/20 06:59 06:59 06:59 06:59 Intake Total 8 2788.8 Output Total 709 870 Balance 1319 1918.8 Weight 192 lb 192 lb 208 lb Intake: IV Fluids 1000 1259 LR 1142 NS (0.9%) 117 IVPB 225 NS (0.9%) 225 Medicated IV 1028 1274.8 CC - Amiodarone 239 321 CC - Norepinephrine/ 699 507 Levophed CC - Propofol/Diprivan 42 80.8 aneta 48 366 Oral 0 0 Tube Feeding Flush Amount 30 Output: RADHA #1 310 290 Donovan 399 580 Labs: Laboratory Results - last 24 hr 02/26/20 02/26/20 04:00 04:00 WBC 11.9 H RBC 3.29 L Hgb 8.4 L Hct 25 L MCV 77 L MCH 26 L MCHC 33 RDW 16 H Plt Count 233 MPV 8.4 Sodium 136 Potassium 4.6 Chloride 110 Carbon Dioxide 19 L Anion Gap 7 BUN 80 H Creatinine 1.54 H Est GFR ( Amer) 52.0 Est GFR (Non-Af Amer) 42.9 BUN/Creatinine Ratio 51.9 H Glucose 128 H Calcium 6.7 L Phosphorus 3.7 Magnesium 1.7 L Studies: Chest/Abd/Pelvis CT 02/25/20: IMPRESSION: 1. THERE IS GENERALIZED THICKENING OF THE DESCENDING AND SIGMOID COLON. A PROBABLE SIGMOIDAL PERFORATION IS ANNOTATED (SERIES 604.2 IMAGE 31: SERIES 3 IMAGE 68). 2. THERE IS MORE GENERALIZED SMALL BOWEL HYPEREMIA AND THICKENING. RECOMMEND CORRELATION WITH SERUM LACTATE LEVELS TO EVALUATE FOR THE POSSIBILITY OF AN ISCHEMIC PROCESS. 3. PNEUMOPERITONEUM AND SMALL VOLUME ASCITES. 4. SMALL BILATERAL PLEURAL EFFUSIONS. 5. DIVERTICULOSIS. 6. CARDIOMEGALY. 7. INCIDENTAL 8MM PULMONARY NODULE ALONG THE RIGHT MINOR FISSURE. REPEAT CHEST CT IN 6-12 MONTHS. Impression: Mr. Perez is an 89 yo M with a PMH of recent admission for rhabdomyolysis of uncertain etiology, recent finding of cardiomyopathy with EF 25-30% who was admitted on 02/25/20 with bowel perforation suspected secondary to diverticulitis , now s/p Seaman's with RADHA drain and colostomy, with post-operative afib with RVR and MT. Diagnoses: * Bowel perforation s/p Hartmans and colostomy * Afib * Cardiomyopathy Plan: Neuro: - Alert and off sedation since extubation CVS- - Hemodynamically stable since afib with RVR has been controlled with beta ranjan - Amiodarone discontinued Resp: - Extubated this afternoon - Wean Fio2 to keep sat>92% ID: - Remains on precautions for COVID-19 rule out - Test resent today due to delay in results (reviewed with Dr Nicolas) GI: - S/p Hartmans for perforated sigmoid colon, abd soft - Management per surgery - Continue fentanyl gtt with boluses as needed - Continue zosyn - NPO Renal: - MT on arrival, continue hydration, avoid nephrotoxins - strict I/O, replete to keep K>4, Mg>2 - donovan Heme: - Anemia workup has been ongoing outpatient, no identified etiology Endo: - Maintain BG<200, insulin protocol as needed Musculsk- pressure ulcer prophylaxis. Bedrest. Wounds- none Nutrition:NPO DVT prophylaxis: SCD GI prophylaxis: Disposition: Patient requires Critical Care/ICU for bowel perforation s/p extubation Patient clinical status: Critical but improving Code Status:Full Code Total Critical Care time is 60 minutes, excluding procedures/teaching
[2020-02-26] MEDS: Metoprolol Tartrate TAB* 25 MG PO SCH (21:33)
[2020-02-27 05:59] LABS: Hematocrit 21 % (42-52); Hemoglobin 7.1 g/dL (14.0-18.0); Mean Corpuscular HGB Conc 34 g/dL (31-36); Mean Corpuscular Hemoglobin 26 pg (27-31); Mean Corpuscular Volume 78 fL (80-94); Mean Platelet Volume 8.5 fL (7.4-10.4); Platelet Count 164 10^3/uL (150-450); Red Blood Count 2.73 10^6 /uL (4.18-5.48); Red Cell Distribution Width 16 % (10-15); White Blood Count 8.1 10^3/uL (3.5-10.8)
[2020-02-27 06:15] LABS: BUN/Creatinine Ratio 42.9 (8-20); Calcium 6.8 mg/dL (8.6-10.3); EGFR African American 54.8 (>60); EGFR Non-African American 45.3 (>60); Magnesium 2.5 mg/dL (1.9-2.7); Phosphorus 3.7 mg/dL (2.5-5.0); Potassium 3.8 mmol/L (3.5-5.0)
[2020-02-27] MEDS: ZOSYN 3.375 GM Q8H per EXTENDED INFUSION IVPB SCH ×4 (08:13→16:02)
[2020-02-27] MEDS: Famotidine IV* 10 MG/ML 2 ML (20 mg) IV SLOW PU SCH ×2 (08:15→22:00)
[2020-02-27] MEDS: Metoprolol Tartrate TAB* 25 MG PO SCH ×2 (08:16→21:57)
--- NOTE | 2020-02-27 09:28 | PN ---
Critical Care Services: Patient had an uneventful evening after extubation yesterday. Is resting in bed and breathing comfortably Vital Signs: Temp Pulse Resp BP SpO2 FiO2 98.7 F 85 25 138/67 95 25 Physical Exam: Gen: Alert and appropriate HEENT: No facial asymmetry Lungs: Occasional rhonchi Cardiac: Irreg rhythm Abdomen: Abdominal drains in place. + bowel sounds. Extremities: 2+edema Fluid Balance (Past 24 Hours): 02/26/20 02/27/20 06:59 06:59 Intake Total 8 3881.8 Output Total 709 2345 Balance 1319 1536.8 Weight 192 lb 205 lb Intake: IV Fluids 1000 2122 LR 1905 NS (0.9%) 217 IVPB 425 ABX - ZOSYN 200 NS (0.9%) 225 Medicated IV 1028 1274.8 CC - Amiodarone 239 321 CC - Norepinephrine/ 699 507 Levophed CC - Propofol/Diprivan 42 80.8 aneta 48 366 Oral 0 0 Tube Feeding Flush Amount 30 NG Tube Irrigate Amount 30 Output: RADHA #1 310 840 Muniz 399 1505 Labs: 02/27/20 02/27/20 05:43 05:43 WBC 8.1 RBC 2.73 L Hgb 7.1 L Hct 21 L MCV 78 L MCH 26 L MCHC 34 RDW 16 H Plt Count 164 MPV 8.5 Sodium 139 Potassium 3.8 Chloride 112 H Carbon Dioxide 21 L Anion Gap 6 BUN 63 H Creatinine 1.47 H Est GFR ( Amer) 54.8 Est GFR (Non-Af Amer) 45.3 BUN/Creatinine Ratio 42.9 H Glucose 94 Calcium 6.8 L Phosphorus 3.7 Magnesium 2.5 Total Creatine Kinase 538 H Studies: None Nutrition: None Impression: 1. Satisfactory postop course. No signs of sepsis, and Afib rate-controlled with metoprolol. 2. Patient is r/o COVID-19 based on myositis of unknown etiology on 02/14. Antigen test pending. Plan: Transfer out of ICU today. Will transfuse one unit packed RBCs for Hb of 7 g/dL , and will begin diuresis with IV furosemide. Critical Care Time: 40 minutes
[2020-02-27] MEDS ORDERED: Furosemide IV* 10 MG/ML VIAL (40 MG) IV ONE (09:37)
--- NOTE | 2020-02-27 10:19 | PN ---
Progress Note - Progress Note Date of Service: 02/27/20 Note: Patient extubated yesterday and has been doing well on room air. Appears to be in sinus rhythm this morning, no tachycardia. Afebrile overnight. COVID testing pending, although family reports they have been told the test is negative. Patient reports abdominal pain at incision. He also reports BLE pain that has been present before this hospitalization. Temp Pulse Resp BP Pulse Ox 98.7 F 76 18 121/59 97 02/27/20 04:00 02/27/20 10:01 02/27/20 10:01 02/27/20 10:01 02/27/20 10:01 Intake & Output 02/26/20 02/27/20 02/27/20 22:59 06:59 14:59 Intake Total 30 1063 Output Total 765 830 150 Balance -735 233 -150 Weight 205 lb Intake: IV Fluids 863 LR 763 NS (0.9%) 100 IVPB 200 ABX - ZOSYN 200 Oral 0 NG Tube Irrigate Amount 30 Output: RADHA #1 270 280 Muniz 495 550 150 General: NAD, sitting up in bed. NG tube with bilious fluid in tubing. Abdomen: soft, tender to palpation, nondistended. Prevena in place, on suction. Cloudy serous fluid in RADHA bulb. Stoma is beefy red but appears viable. Serosanguinous fluid only in ostomy bag. Extremities: Moderate pedal edema b/l up to thighs Neuro: Oriented to person only. Moves all extremities equally. Laboratory Results - last 24 hr 02/25/20 02/27/20 02/27/20 03:54 05:43 05:43 WBC 8.1 RBC 2.73 L Hgb 7.1 L Hct 21 L MCV 78 L MCH 26 L MCHC 34 RDW 16 H Plt Count 164 MPV 8.5 Sodium 139 Potassium 3.8 Chloride 112 H Carbon Dioxide 21 L Anion Gap 6 BUN 63 H Creatinine 1.47 H Est GFR ( Amer) 54.8 Est GFR (Non-Af Amer) 45.3 BUN/Creatinine Ratio 42.9 H Glucose 94 Calcium 6.8 L Phosphorus 3.7 Magnesium 2.5 Total Creatine Kinase 538 H Blood Type O Positive Antibody Screen Negative Crossmatch See Detail A&P 89M with perforated viscus, s/p ex lap, Jose L's procedure POD 2. Recovering well, stable from hemodynamic and respiratory standpoint. Awaiting return of bowel function. -NPO, NG to suction. -Continue Zosyn. Cx with Bacteroides, Clostridium, Streptococcus, sensitivities pending -COVID 19 pending -Appreciate ICU care. Likely to be transferred to floor today -Anemia: small drop in hgb likely dilutional. Will receive 1 unit RBC today. -Muniz for accurate I&Os. MT appears to be improving: urine output better and Cr trending down. -DVT ppx: SQH, plan to start SQH when H&H stable -GI ppx: Pepcid
[2020-02-27] MEDS: fentaNYL* 50 MCG/ML 2 ML VIAL (100 MCG VIAL) IV SLOW PU PRN (12:48)
[2020-02-27] MEDS: Lactated Ringers 1000 ML Bag* 1,000 ML IV SCH (12:48)
[2020-02-27 13:33] LABS: Hematocrit 23 % (42-52); Hemoglobin 7.9 g/dL (14.0-18.0)
[2020-02-27] MEDS ORDERED: Naloxone* 0.4 MG/ML 1 ML VIAL IV PUSH PRN (15:37)
[2020-02-27] MEDS ORDERED: HYDROmorphone PCA* 20 MG/20 ML PCA.SYRING PCA SCH (16:00)
[2020-02-27] MEDS: Acetaminophen ADULT LIQ* 650 MG/20.3 ML UDC PO SCH ×2 (16:46→23:59)
[2020-02-28] MEDS: ZOSYN 3.375 GM Q8H per EXTENDED INFUSION IVPB SCH ×6 (00:28→15:44)
[2020-02-28 06:36] LABS: Hematocrit 21 % (42-52); Mean Corpuscular HGB Conc 34 g/dL (31-36); Mean Corpuscular Hemoglobin 26 pg (27-31); Mean Corpuscular Volume 79 fL (80-94); Mean Platelet Volume 8.5 fL (7.4-10.4); Platelet Count 150 10^3/uL (150-450); Red Blood Count 2.64 10^6 /uL (4.18-5.48); Red Cell Distribution Width 16 % (10-15)
[2020-02-28 06:50] LABS: BUN/Creatinine Ratio 41.5 (8-20); Blood Urea Nitrogen 59 mg/dL (6-24); CO2 Carbon Dioxide 25 mmol/L (22-32); Calcium 6.7 mg/dL (8.6-10.3); EGFR African American 57.1 (>60); EGFR Non-African American 47.2 (>60); Glucose 95 mg/dL (70-100); Magnesium 2.2 mg/dL (1.9-2.7); Potassium 3.3 mmol/L (3.5-5.0); Sodium 145 mmol/L (135-145)
[2020-02-28 06:53] LABS: Anion Gap 6 mmol/L (2-11); Chloride 114 mmol/L (101-111)
[2020-02-28 08:07] LABS: Urine Appearance Cloudy; Urine Bilirubin Negative (Negative); Urine Blood 3+ (Negative); Urine Color Yellow; Urine Glucose Negative (Negative); Urine Ketones Negative (Negative); Urine Nitrite Negative (Negative); Urine Protein Negative (Negative); Urine Specific Gravity 1.024 (1.010-1.030); Urine Urobilinogen Negative (Negative)
[2020-02-28 08:10] LABS: Urine Bacteria Absent (Absent); Urine Red Blood Cell 3+(>10/hpf) (Absent); Urine White Blood Cell 1+(6-10/hpf) (Absent)
[2020-02-28 08:31] LABS: Creatine Kinase 418 U/L (10-223)
[2020-02-28] MEDS: Famotidine IV* 10 MG/ML 2 ML (20 mg) IV SLOW PU SCH ×2 (08:35→21:56)
[2020-02-28 08:37] LABS: Myoglobin 339.5 ng/mL (17.4-105.7)
[2020-02-28] MEDS: Acetaminophen ADULT LIQ* 650 MG/20.3 ML UDC PO SCH ×2 (08:38→15:46)
[2020-02-28 08:43] LABS: Troponin I 0.45 ng/mL (<0.03)
[2020-02-28] MEDS ORDERED: KCL 20 MEQ/100 ML IVPREMIX* 20 MEQ/100 ML BAG IV SCH (09:00)
[2020-02-28] MEDS: Metoprolol Tartrate TAB* 25 MG PO SCH (10:25)
[2020-02-28] MEDS ORDERED: Metoprolol Succinate XL TAB* 25 MG PO SCH (10:26)
--- NOTE | 2020-02-28 11:22 | PN ---
Progress Note - Progress Note Date of Service: 02/28/20 Note: Reports abdominal pain when he coughs or pushes on his abdomen. 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 Vital Signs - 12 hr Temp Pulse Resp BP Pulse Ox 02/28/20 10:36 20 98 02/28/20 07:38 20 02/28/20 07:36 20 98 02/28/20 07:22 97.3 F 65 20 118/48 98 02/28/20 06:00 16 97 02/28/20 03:46 16 97 02/28/20 03:41 97.1 F 76 16 122/48 98 02/28/20 02:00 18 96 02/28/20 00:40 70 18 112/50 97 02/28/20 00:34 16 98 Intake & Output 02/27/20 02/28/20 02/28/20 22:59 06:59 14:59 Intake Total 50 926 Output Total 1435 1195 610 Balance -1435 -1145 316 Intake: IV Fluids 926 ABX - ZOSYN 107 LR 704 NS (0.9%) 15 kcl 100 NG Tube Irrigate Amount 50 Output: NG Tube Drainage Amount 275 RADHA #1 260 190 160 Muniz 1175 730 450 General: NAD, sitting in bed. NG tube with bilious fluid in suction tubing, fluid in canister is blood-tinged and brown. Abdomen: Soft, tenderness to palpation, no guarding. Prevena in place on suction. RADHA drain with serous fluid. Stoma is beefy red, scant serosanguinous fluid in bag. Neuro: Awake and alert. Laboratory Results - last 24 hr 02/25/20 02/27/20 02/28/20 03:54 13:15 06:24 WBC RBC Hgb 7.9 L Hct 23 L MCV MCH MCHC RDW Plt Count MPV Sodium 145 Potassium 3.3 L Chloride 114 H Carbon Dioxide 25 Anion Gap 6 BUN 59 H Creatinine 1.42 H Est GFR ( Amer) 57.1 Est GFR (Non-Af Amer) 47.2 BUN/Creatinine Ratio 41.5 H Glucose 95 Calcium 6.7 L Magnesium 2.2 Total Creatine Kinase 418 H Myoglobin 339.5 H Troponin I 0.45 H* Urine Color Urine Appearance Urine pH Ur Specific [place] Urine Protein Urine Ketones Urine Blood Urine Nitrate Urine Bilirubin Urine Urobilinogen Ur Leukocyte Esterase Urine WBC (Auto) Urine RBC (Auto) Urine Bacteria Urine Glucose Blood Type O Positive Antibody Screen Negative Crossmatch See Detail 02/28/20 02/28/20 06:24 07:50 WBC 7.0 RBC 2.64 L Hgb 7.0 L Hct 21 L MCV 79 L MCH 26 L MCHC 34 RDW 16 H Plt Count 150 MPV 8.5 Sodium Potassium Chloride Carbon Dioxide Anion Gap BUN Creatinine Est GFR ( Amer) Est GFR (Non-Af Amer) BUN/Creatinine Ratio Glucose Calcium Magnesium Total Creatine Kinase Myoglobin Troponin I Urine Color Yellow Urine Appearance Cloudy Urine pH 5.0 Ur Specific [place] 1.024 Urine Protein Negative Urine Ketones Negative Urine Blood 3+ A Urine Nitrate Negative Urine Bilirubin Negative Urine Urobilinogen Negative Ur Leukocyte Esterase Negative Urine WBC (Auto) 1+(6-10/hpf) A Urine RBC (Auto) 3+(>10/hpf) A Urine Bacteria Absent Urine Glucose Negative Blood Type Antibody Screen Crossmatch A&P 89M with perforated viscus, s/p ex lap and Jose L's procedure POD 3. Awaiting return of bowel function. -NPO except ice chips. NG to suction -Continue Zosyn -Pain control with CIG[employer] L[employer]PA[employer]ER and scheduled tylenol -Anemia: hgb continues to drift down, will monitor for now. No evidence of intra -abd bleeding (RADHA drain without blood) -Activity as tolerated with assistance -DVT ppx: SCDs, holding SQH until H&H stable -GI ppx: Famotidine
[2020-02-28 13:11] LABS: Hematocrit 21 % (42-52); Hemoglobin 7.1 g/dL (14.0-18.0)
--- NOTE | 2020-02-28 15:14 | PN ---
Subjective Date of Service: 02/28/20 Interval History: Patient's main complaint is abdominal pain. Patient states the pain is severe with any movement. patient complains of muscle weakness, but denies any more muscle pain. Patient denies F/C, N/V, abdominal pain, diarrhea, CP, SOB, or other pain. Family History: Unchanged from Admission Social History: Unchanged from Admission Past Medical History: Unchanged from Admission Objective Active Medications: Acetaminophen (Tylenol Adult Liq*) 975 mg PO Q8H [facility] Stop: 03/01/20 15:59 Last Admin: 02/28/20 08:38 Dose: 975 mg Famotidine (Pepcid Iv*) 20 mg IV SLOW PU BID [facility] Last Admin: 02/28/20 08:35 Dose: 20 mg Heparin Sodium (Porcine) (Heparin Flush Picc/Ml/Cvc(*)) 1 ml FLUSH 0600,1800 [facility]; Protocol Piperacillin Sod/Tazobactam (Sod 3.375 gm/ Sodium Chloride) 100 mls @ 25 mls/ hr IVPB Q8H [facility] Last Admin: 02/28/20 08:29 Dose: 25 mls/hr Hydromorphone HCl (Dilaudid Butter Grader*) 20 mg in 20 mls @ 0 mls/hr [employer] .PER PROTOCOL [facility]; Protocol Last Admin: 02/27/20 16:54 Dose: 1 mls/hr Metoprolol Succinate (Toprol Xl Tab*) 12.5 mg PO DAILY [facility] Last Admin: 02/28/20 10:54 Dose: 12.5 mg Naloxone HCl (Narcan*) 0.08 mg IV PUSH .Q2MIN PRN PRN Reason: OVERSEDATION Pharmacy Consult (Zosyn Per Pharmacy*) 1 note FOLLOW UP .ZOSYN PER PHARMACY [facility] Vital Signs - 8 hr 02/28/20 02/28/20 02/28/20 07:22 07:36 07:38 Temperature 97.3 F Pulse Rate 65 Respiratory 20 20 20 Rate Blood Pressure 118/48 (mmHg) O2 Sat by Pulse 98 98 Oximetry 02/28/20 02/28/20 02/28/20 10:36 11:16 12:00 Temperature 96.5 F Pulse Rate 81 Respiratory 20 20 18 Rate Blood Pressure 140/50 (mmHg) O2 Sat by Pulse 98 99 99 Oximetry 02/28/20 14:16 Temperature Pulse Rate Respiratory 16 Rate Blood Pressure (mmHg) O2 Sat by Pulse 96 Oximetry Oxygen Devices in Use Now: None Appearance: Patient is an 89yo male who appears stated age, has an NG tube in, and is sitting in the bed in NAD. Eyes: No Scleral Icterus, PERRLA Ears/Nose/Mouth/Throat: NL Teeth, Lips, Gums, Clear Oropharnyx, Mucous Membranes Moist Neck: NL Appearance and Movements; NL JVP, Trachea Midline Respiratory: Symmetrical Chest Expansion and Respiratory Effort, Clear to Auscultation Cardiovascular: NL Sounds; No Murmurs; No JVD, - - 1+ B/L LE edema. Abdominal: - - Hypoactive BS, Very tender, Colostomy, RADHA drain and wound vac all in place. Lymphatic: No Cervical Adenopathy Extremities: No Clubbing, Cyanosis Skin: No Nodules or Sclerosis Neurological: Alert and Oriented x 3, NL Sensation, - - 3/5 Strength in all proximal muscle groups. Result Diagrams: 02/28/20 12:55 02/28/20 06:24 Additional Lab and Data: Lab Results Microbiology and Other Data: Microbiology 02/25/20 11:46 Gram Stain - Final Misc Source (See Comment) - Peritoneal Wound Culture - Preliminary Streptococcus Anginosus 02/25/20 11:46 Anaerobic Culture - Preliminary Body Fluid Bacteroides Thetaiotaomicron Clostridium Clostridiiforme 02/25/20 06:21 Stool Occult Blood (DANNY) - Final Stool Assess/Plan/Problems-Billing Assessment: Patient is an 89yo male with a PMH for Thallessemia, MARIELOS, recently diagnosed NICM and rhabdomyolysis of unclear cause, here with perforated bowel S/P Repair. Improving. - Patient Problems (1) Rupture of bowel Current Visit: Yes Status: Acute Code(s): K63.1 - PERFORATION OF INTESTINE ( NONTRAUMATIC) SNOMED Code(s): 683484707 Comment: - S/P Repair and Jose L's procedure on 02/24. - Needed Vasopressors Post-op for septic shock, now weaned off - NG tube in place, Wound Vac, RADHA Drain, management per surgery. - Steroids possibly contributed to bowel friability and rupture - Possible underlying lesion intraop, follow up pathology and LN biopsies. - Continue Zosyn Per surgery 02/24-? (2) Cardiomyopathy Current Visit: Yes Status: Acute Code(s): I42.9 - CARDIOMYOPATHY, UNSPECIFIED SNOMED Code(s): 35048947 Comment: - Diagnosed in 01/2020 - Non-Obstructive Cath, Echo shows disproportionate hypertrophy to HTN - Unclear cause, Concern for dermatomyositis with myocardial involvement (Less likely due to normal MELLISSA and Anti-Jennifer, but not ruled out) - Was scheduled for further cardiac workup to help determine etiology. - Viral process possible, Negative tick borne and viral respiratory panel. (3) Atrial fibrillation Current Visit: Yes Status: Acute Code(s): I48.91 - UNSPECIFIED ATRIAL FIBRILLATION SNOMED Code(s): 73342619 Comment: - New onset, unclear duration. - Possibly actually MAT - No anticoagulation at this time, decision will have to be made when surgery more remote. 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 - Concern for chronic blood loss. 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
[2020-02-28] MEDS ORDERED: Ondansetron INJ* 2 MG/ML VIAL IV PRN (18:01)
[2020-02-28 23:49] LABS: Troponin I 0.42 ng/mL (<0.03)
[2020-02-29] MEDS: ZOSYN 3.375 GM Q8H per EXTENDED INFUSION IVPB SCH ×6 (00:35→16:38)
[2020-02-29] MEDS: Acetaminophen ADULT LIQ* 650 MG/20.3 ML UDC PO SCH ×3 (00:38→16:21)
[2020-02-29 05:08] LABS: Hematocrit 21 % (42-52); Hemoglobin 7.2 g/dL (14.0-18.0); Mean Corpuscular HGB Conc 35 g/dL (31-36); Mean Corpuscular Hemoglobin 27 pg (27-31); Mean Corpuscular Volume 79 fL (80-94); Mean Platelet Volume 8.4 fL (7.4-10.4); Platelet Count 164 10^3/uL (150-450); Red Blood Count 2.62 10^6 /uL (4.18-5.48); Red Cell Distribution Width 16 % (10-15); White Blood Count 5.9 10^3/uL (3.5-10.8)
[2020-02-29 05:24] LABS: Albumin 1.5 g/dL (3.2-5.2); Albumin/Globulin Ratio 0.8 (1-3); BUN/Creatinine Ratio 41.2 (8-20); Calcium 6.8 mg/dL (8.6-10.3); EGFR Non-African American 57.8 (>60); Magnesium 2.2 mg/dL (1.9-2.7); Phosphorus 3.1 mg/dL (2.5-5.0); Potassium 3.4 mmol/L (3.5-5.0); Total Bilirubin 0.4 mg/dL (0.2-1.0); Total Protein 3.5 g/dL (6.4-8.9)
[2020-02-29 05:27] LABS: ABS Eosinophils 0.1 10^3/ul (0-0.6); ABS Lymphocytes 0.3 10^3/ul (1.0-4.8); ABS Monocytes 0.4 10^3/ul (0-0.8); ABS Neutrophils 5.1 10^3/ul (1.5-7.7); Eosinophil % 1.4 %; Lymphocyte % 5.5 %; Nucleated Red Blood Cells % 0.1
[2020-02-29] MEDS: KCL 20 MEQ/100 ML IVPREMIX* 20 MEQ/100 ML BAG IV SCH ×2 (09:12→11:58)
[2020-02-29] MEDS: Famotidine IV* 10 MG/ML 2 ML (20 mg) IV SLOW PU SCH ×2 (09:16→20:33)
[2020-02-29] MEDS: Metoprolol Tartrate TAB* 25 MG PO SCH ×2 (09:55→20:32)
--- NOTE | 2020-02-29 10:30 | PN ---
Progress Note - Progress Note Date of Service: 02/29/20 Note: Surgery Progress Note S: Patient is doing well. He was moved to ICU this morning because the 4N nursing staff thought that he required 1:1 care that could not be done on the floor. He complains of pain in his abdomen when he moves. He also complains of some stinging with urination. His Hct has been stable at 21. O: Vital Signs - 24 hr 02/28/20 02/28/20 02/28/20 10:36 11:16 12:00 Temperature 96.5 F Pulse Rate 81 Respiratory 20 20 18 Rate Blood Pressure 140/50 (mmHg) O2 Sat by Pulse 98 99 99 Oximetry 02/28/20 02/28/20 02/28/20 14:16 15:41 15:56 Temperature 97.2 F Pulse Rate 83 Respiratory 16 16 18 Rate Blood Pressure 142/56 (mmHg) O2 Sat by Pulse 96 99 98 Oximetry 02/28/20 02/28/20 02/28/20 17:46 19:01 19:19 Temperature 97.2 F Pulse Rate 86 Respiratory 20 16 Rate Blood Pressure 124/52 (mmHg) O2 Sat by Pulse 99 93 97 Oximetry 02/28/20 02/28/20 02/28/20 19:32 19:34 22:00 Temperature Pulse Rate Respiratory 16 16 16 Rate Blood Pressure (mmHg) O2 Sat by Pulse 98 96 Oximetry 02/28/20 02/29/20 02/29/20 23:25 03:27 03:28 Temperature 96.9 F 96.2 F Pulse Rate 72 77 Respiratory 16 16 16 Rate Blood Pressure 132/52 132/64 (mmHg) O2 Sat by Pulse 98 98 97 Oximetry 02/29/20 02/29/20 03:45 05:06 Temperature 97.0 F 97.5 F Pulse Rate Respiratory Rate Blood Pressure (mmHg) O2 Sat by Pulse Oximetry Laboratory Results - last 24 hr 02/28/20 02/28/20 02/29/20 12:55 23:18 04:50 WBC 5.9 RBC 2.62 L Hgb 7.1 L 7.2 L Hct 21 L 21 L MCV 79 L MCH 27 MCHC 35 RDW 16 H Plt Count 164 MPV 8.4 Neut % (Auto) 86.5 Lymph % (Auto) 5.5 [place] % (Auto) 6.5 Eos % (Auto) 1.4 Baso % (Auto) 0.1 Absolute Neuts (auto) 5.1 Absolute Lymphs (auto) 0.3 L Absolute Monos (auto) 0.4 Absolute Eos (auto) 0.1 Absolute Basos (auto) 0.0 Absolute Nucleated RBC 0.0 Nucleated RBC % 0.1 Sodium Potassium Chloride Carbon Dioxide Anion Gap BUN Creatinine Est GFR ( Amer) Est GFR (Non-Af Amer) BUN/Creatinine Ratio Glucose Calcium Phosphorus Magnesium Total Bilirubin AST ALT Alkaline Phosphatase Troponin I 0.42 H* Total Protein Albumin Globulin Albumin/Globulin Ratio Vitamin B12 02/29/20 04:50 WBC RBC Hgb Hct MCV MCH MCHC RDW Plt Count MPV Neut % (Auto) Lymph % (Auto) [place] % (Auto) Eos % (Auto) Baso % (Auto) Absolute Neuts (auto) Absolute Lymphs (auto) Absolute Monos (auto) Absolute Eos (auto) Absolute Basos (auto) Absolute Nucleated RBC Nucleated RBC % Sodium 145 Potassium 3.4 L Chloride 116 H Carbon Dioxide 25 Anion Gap 4 BUN 49 H Creatinine 1.19 H Est GFR ( Amer) 70.0 Est GFR (Non-Af Amer) 57.8 BUN/Creatinine Ratio 41.2 H Glucose 84 Calcium 6.8 L Phosphorus 3.1 Magnesium 2.2 Total Bilirubin 0.40 AST 62 H ALT 23 Alkaline Phosphatase 52 Troponin I Total Protein 3.5 L Albumin 1.5 L Globulin 2.0 Albumin/Globulin Ratio 0.8 L Vitamin B12 775 Intake & Output 02/28/20 02/29/20 02/29/20 22:59 06:59 14:59 Intake Total 414 Output Total 895 345 Balance -481 -345 Intake: IV Fluids 414 ABX - ZOSYN 110 LR 268 NS (0.9%) 36 Output: NG Tube Drainage Amount 150 RADHA #1 220 95 Donovan 525 250 Physical exam: Abdomen- soft, non distended, tender around VAC and in LLQ. 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 - Awaiting ostomy function. DC NGT and start sips of clears today. Awaiting path report - Patient needs aggressive PT - Neuro- appears A+O x 3, but patient is hard of hearing and some answers are unclear, on COAL SHOVELER - CV- h/o nonischemic cardiomyopathy, intermittent postop afib, on MTP for rate control, no anticoag at this time for recent anemia - Resp- remains on contact/droplet precautions while COVID re-testing is pending ; aggressive IS - ID- Patient remains afebrile, with no WBC-- on Zosyn for +clostridium, + bacteroides, +strep from intraoperative peritoneal fluid cx. Can DC Zosyn soon - Renal- Cr improving, DC donovan catheter today - Heme- Hct stable at 21; transfuse to keep Hgb > 7 - Ppx- pepcid, HSQ on hold for anemia; if Hct remains stable can restart tomorrow - Lines- Triple lumen IJ placed 02/24-- can likely DC soon as patient has not been requiring blood transfusion, vasopressors - Discussed with hospitalist, Norberto Burrows and patient's nurse, Reilly - I called to update patient's daughter, Carmelita, on how patient is doing post operatively
--- NOTE | 2020-02-29 15:48 | PN ---
Subjective Date of Service: 02/29/20 Interval History: Patient has persistent pain in abdomen, particularly with movement. Patient has no appetite. Patient denies F/C, dizziness, palpitations, CP, SOB, or other pain. Family History: Unchanged from Admission Social History: Unchanged from Admission Past Medical History: Unchanged from Admission Objective Active Medications: Acetaminophen (Tylenol Adult Liq*) 975 mg PO Q8H [facility] Stop: 03/01/20 15:59 Last Admin: 02/29/20 12:29 Dose: Not Given Famotidine (Pepcid Iv*) 20 mg IV SLOW PU BID [facility] Last Admin: 02/29/20 09:16 Dose: 20 mg Heparin Sodium (Porcine) (Heparin Flush Picc/Ml/Cvc(*)) 1 ml FLUSH 0600,1800 [facility]; Protocol Last Admin: 02/29/20 14:48 Dose: 2 ml Piperacillin Sod/Tazobactam (Sod 3.375 gm/ Sodium Chloride) 100 mls @ 25 mls/ hr IVPB Q8H [facility] Last Admin: 02/29/20 09:09 Dose: 25 mls/hr Hydromorphone HCl (Dilaudid Pricing Specialist*) 20 mg in 20 mls @ 0 mls/hr [employer] .PER PROTOCOL [facility]; Protocol Last Admin: 02/27/20 16:54 Dose: 1 mls/hr Metoprolol Tartrate (Lopressor Tab*) 12.5 mg PO Q12HR [facility] Last Admin: 02/29/20 09:55 Dose: 12.5 mg Naloxone HCl (Narcan*) 0.08 mg IV PUSH .Q2MIN PRN PRN Reason: OVERSEDATION Ondansetron HCl (Zofran Inj*) 4 mg IV Q6H PRN PRN Reason: NAUSEA Last Admin: 02/28/20 18:14 Dose: 4 mg Pharmacy Consult (Zosyn Per Pharmacy*) 1 note FOLLOW UP .ZOSYN PER PHARMACY [facility] Vital Signs - 8 hr 02/29/20 02/29/20 02/29/20 08:30 08:48 09:00 Temperature 97.6 F Pulse Rate 83 95 71 Respiratory 20 Rate Blood Pressure 133/62 (mmHg) O2 Sat by Pulse 95 95 96 Oximetry 02/29/20 02/29/20 02/29/20 09:09 09:15 09:30 Temperature Pulse Rate 79 79 70 Respiratory 15 13 15 Rate Blood Pressure 133/62 (mmHg) O2 Sat by Pulse 97 95 95 Oximetry 02/29/20 02/29/20 02/29/20 09:45 10:00 10:01 Temperature Pulse Rate 92 84 82 Respiratory 20 19 19 Rate Blood Pressure 152/63 (mmHg) O2 Sat by Pulse 96 98 99 Oximetry 02/29/20 02/29/20 02/29/20 10:15 10:22 10:30 Temperature Pulse Rate 77 89 Respiratory 24 18 Rate Blood Pressure (mmHg) O2 Sat by Pulse 98 98 98 Oximetry 02/29/20 02/29/20 02/29/20 10:45 11:00 11:01 Temperature Pulse Rate 89 93 88 Respiratory Rate Blood Pressure 124/78 (mmHg) O2 Sat by Pulse 96 98 98 Oximetry 02/29/20 02/29/20 02/29/20 11:15 11:30 11:38 Temperature Pulse Rate 77 91 Respiratory 18 Rate Blood Pressure (mmHg) O2 Sat by Pulse 96 99 Oximetry 02/29/20 02/29/20 02/29/20 11:45 12:00 12:01 Temperature Pulse Rate 85 81 76 Respiratory Rate Blood Pressure 148/71 (mmHg) O2 Sat by Pulse 100 99 97 Oximetry 02/29/20 02/29/20 02/29/20 12:15 12:30 12:45 Temperature Pulse Rate 93 61 62 Respiratory Rate Blood Pressure (mmHg) O2 Sat by Pulse 98 99 96 Oximetry 02/29/20 02/29/20 02/29/20 13:00 13:15 13:30 Temperature Pulse Rate 59 62 71 Respiratory Rate Blood Pressure 130/59 (mmHg) O2 Sat by Pulse 98 98 96 Oximetry 02/29/20 02/29/20 02/29/20 13:35 13:45 14:00 Temperature Pulse Rate 61 59 Respiratory 18 15 12 Rate Blood Pressure 122/63 (mmHg) O2 Sat by Pulse 97 100 99 Oximetry 02/29/20 02/29/20 02/29/20 14:02 14:15 14:30 Temperature Pulse Rate 62 64 Respiratory 16 12 14 Rate Blood Pressure (mmHg) O2 Sat by Pulse 99 98 Oximetry 02/29/20 02/29/20 02/29/20 14:45 15:00 15:07 Temperature 96.6 F Pulse Rate 69 71 Respiratory 13 14 Rate Blood Pressure 143/70 (mmHg) O2 Sat by Pulse 97 99 Oximetry 02/29/20 15:14 Temperature Pulse Rate Respiratory 16 Rate Blood Pressure (mmHg) O2 Sat by Pulse 98 Oximetry Oxygen Devices in Use Now: None Appearance: Patient is an 89yo male who appears stated age and is sitting in the bed in NAD. Eyes: No Scleral Icterus, PERRLA Ears/Nose/Mouth/Throat: NL Teeth, Lips, Gums, Clear Oropharnyx, Mucous Membranes Moist Neck: NL Appearance and Movements; NL JVP, Trachea Midline Respiratory: Symmetrical Chest Expansion and Respiratory Effort, Clear to Auscultation Cardiovascular: NL Sounds; No Murmurs; No JVD, - - widespread mild edema. Abdominal: No Hepatosplenomegaly, - - Midline incsion covered. Stoma dark red with small amount of blood output. RADHA drain with small amount of serous output. Lymphatic: No Cervical Adenopathy Skin: No Nodules or Sclerosis Neurological: Alert and Oriented x 3, NL Sensation, - - CN II-XII intact. Diffuse weakness. Result Diagrams: 02/29/20 04:50 02/29/20 04:50 Additional Lab and Data: Lab Results Microbiology and Other Data: Microbiology 02/25/20 11:46 Gram Stain - Final Misc Source (See Comment) - Peritoneal Wound Culture - Preliminary Streptococcus Anginosus 02/25/20 11:46 Anaerobic Culture - Preliminary Body Fluid Bacteroides Thetaiotaomicron Clostridium Clostridiiforme 02/25/20 06:21 Stool Occult Blood (DANNY) - Final Stool Assess/Plan/Problems-Billing Assessment: Patient is an 89yo male with a PMH for Thallessemia, MARIELOS, recently diagnosed NICM and rhabdomyolysis of unclear cause, here with perforated bowel S/P Repair. Improving. - Patient Problems (1) Rupture of bowel Current Visit: Yes Status: Acute Code(s): K63.1 - PERFORATION OF INTESTINE ( NONTRAUMATIC) SNOMED Code(s): 404476004 Comment: - S/P Repair and Jose L's procedure on 02/24. - Needed Vasopressors Post-op for septic shock, now weaned off - NG tube removed, Wound Vac, RADHA Drain, management per surgery. - Steroids possibly contributed to bowel friability and rupture - Possible underlying lesion intraop, Pathology shows benign LN and ruptured diverticulitis. - Continue Zosyn 02/24-? 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 - Viral process possible, Negative tick borne and viral respiratory panel. - Trop persistently elevated. (3) Atrial fibrillation Current Visit: Yes Status: Acute Code(s): I48.91 - UNSPECIFIED ATRIAL FIBRILLATION SNOMED Code(s): 92389537 Comment: - New onset, unclear duration. - Possibly actually MAT - No anticoagulation at this time, decision will have to be made when surgery more remote. 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 - Concern for chronic blood loss. 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
[2020-02-29 20:15] LABS: BUN/Creatinine Ratio 39.3 (8-20); Calcium 6.8 mg/dL (8.6-10.3); Potassium 3.8 mmol/L (3.5-5.0)
[2020-02-29] MEDS: HYDROmorphone INJ* 0.5 MG/0.5 ML SYRINGE IV SLOW PU PRN (20:35)
[2020-03-01] MEDS: ZOSYN 3.375 GM Q8H per EXTENDED INFUSION IVPB SCH ×6 (00:07→16:18)
[2020-03-01] MEDS: Acetaminophen ADULT LIQ* 650 MG/20.3 ML UDC PO SCH ×2 (00:08→08:05)
[2020-03-01] MEDS ORDERED: Benzocaine/Menthol LOZ* 1 LOZENGE MT PRN (00:56)
[2020-03-01] MEDS ORDERED: guaiFENesin 100 mg/5 ml LIQ unit dose cup PO ONE (00:57)
[2020-03-01] MEDS: HYDROmorphone INJ* 0.5 MG/0.5 ML SYRINGE IV SLOW PU PRN ×2 (05:15→15:03)
[2020-03-01 05:24] LABS: Hematocrit 21 % (42-52); Hemoglobin 6.8 g/dL (14.0-18.0); Mean Corpuscular HGB Conc 33 g/dL (31-36); Mean Corpuscular Hemoglobin 27 pg (27-31); Mean Corpuscular Volume 80 fL (80-94); Mean Platelet Volume 8.3 fL (7.4-10.4); Platelet Count 192 10^3/uL (150-450); Red Blood Count 2.58 10^6 /uL (4.18-5.48); Red Cell Distribution Width 16 % (10-15); White Blood Count 7.9 10^3/uL (3.5-10.8)
[2020-03-01 05:45] LABS: Magnesium 2.2 mg/dL (1.9-2.7)
[2020-03-01] MEDS: guaiFENesin ER TAB 600 MG PO SCH ×2 (08:07→21:00)
[2020-03-01] MEDS: Metoprolol Tartrate TAB* 25 MG PO SCH ×2 (08:07→21:00)
[2020-03-01] MEDS: Famotidine IV* 10 MG/ML 2 ML (20 mg) IV SLOW PU SCH (08:08)
[2020-03-01] MEDS: Pantoprazole IV* 40 MG IV SCH (10:21)
--- NOTE | 2020-03-01 10:50 | PN ---
Progress Note - Progress Note Date of Service: 03/01/20 Note: Surgery Progress Note S: Patient is doing well. He was moved to [facility] yesterday. He has pain when he coughs. His repeat COVID 19 returned as negative. He was unable to work with PT yesterday because he was too sore (he has had complaints of that with his myositis). O: Vital Signs - 24 hr 02/29/20 02/29/20 02/29/20 10:45 11:00 11:01 Temperature Pulse Rate 89 93 88 Respiratory Rate Blood Pressure 124/78 (mmHg) O2 Sat by Pulse 96 98 98 Oximetry 02/29/20 02/29/20 02/29/20 11:15 11:30 11:38 Temperature Pulse Rate 77 91 Respiratory 18 Rate Blood Pressure (mmHg) O2 Sat by Pulse 96 99 Oximetry 02/29/20 02/29/20 02/29/20 11:45 12:00 12:01 Temperature Pulse Rate 85 81 76 Respiratory Rate Blood Pressure 148/71 (mmHg) O2 Sat by Pulse 100 99 97 Oximetry 02/29/20 02/29/20 02/29/20 12:15 12:30 12:45 Temperature Pulse Rate 93 61 62 Respiratory Rate Blood Pressure (mmHg) O2 Sat by Pulse 98 99 96 Oximetry 02/29/20 02/29/20 02/29/20 13:00 13:15 13:30 Temperature Pulse Rate 59 62 71 Respiratory Rate Blood Pressure 130/59 (mmHg) O2 Sat by Pulse 98 98 96 Oximetry 02/29/20 02/29/20 02/29/20 13:35 13:45 14:00 Temperature Pulse Rate 61 59 Respiratory 18 15 12 Rate Blood Pressure 122/63 (mmHg) O2 Sat by Pulse 97 100 99 Oximetry 02/29/20 02/29/20 02/29/20 14:02 14:15 14:30 Temperature Pulse Rate 62 64 Respiratory 16 12 14 Rate Blood Pressure (mmHg) O2 Sat by Pulse 99 98 Oximetry 02/29/20 02/29/20 02/29/20 14:45 15:00 15:07 Temperature 96.6 F Pulse Rate 69 71 Respiratory 13 14 Rate Blood Pressure 143/70 (mmHg) O2 Sat by Pulse 97 99 Oximetry 02/29/20 02/29/20 02/29/20 15:14 17:45 19:55 Temperature 97.8 F 98.0 F Pulse Rate 85 89 Respiratory 16 18 17 Rate Blood Pressure 134/58 141/70 (mmHg) O2 Sat by Pulse 98 98 100 Oximetry 02/29/20 02/29/20 02/29/20 20:14 20:20 20:35 Temperature Pulse Rate Respiratory 17 17 16 Rate Blood Pressure (mmHg) O2 Sat by Pulse 100 Oximetry 02/29/20 02/29/20 03/01/20 22:19 23:24 03:32 Temperature 97.6 F 97.9 F Pulse Rate 63 84 Respiratory 16 16 16 Rate Blood Pressure 137/43 135/62 (mmHg) O2 Sat by Pulse 98 99 Oximetry 03/01/20 03/01/20 03/01/20 05:15 06:31 07:41 Temperature 99.1 F Pulse Rate 90 Respiratory 17 16 20 Rate Blood Pressure 149/63 (mmHg) O2 Sat by Pulse 100 Oximetry 03/01/20 08:00 Temperature Pulse Rate Respiratory 18 Rate Blood Pressure (mmHg) O2 Sat by Pulse Oximetry Laboratory Results - last 24 hr 02/26/20 02/29/20 03/01/20 15:20 19:50 05:12 WBC 7.9 RBC 2.58 L Hgb 6.8 L Hct 21 L MCV 80 MCH 27 MCHC 33 RDW 16 H Plt Count 192 MPV 8.3 Sodium 148 H Potassium 3.8 Chloride 119 H Carbon Dioxide 23 Anion Gap 6 BUN 44 H Creatinine 1.12 Est GFR ( Amer) 75.0 Est GFR (Non-Af Amer) 62.0 BUN/Creatinine Ratio 39.3 H Glucose 82 Calcium 6.8 L Magnesium COVID-19 PCR Undetected Blood Type Antibody Screen Crossmatch 03/01/20 03/01/20 05:12 05:12 WBC RBC Hgb Hct MCV MCH MCHC RDW Plt Count MPV Sodium Potassium Chloride Carbon Dioxide Anion Gap BUN Creatinine Est GFR ( Amer) Est GFR (Non-Af Amer) BUN/Creatinine Ratio Glucose Calcium Magnesium 2.2 COVID-19 PCR Blood Type O Positive Antibody Screen Negative Crossmatch See Detail Intake & Output 02/29/20 03/01/20 03/01/20 22:59 06:59 14:59 Intake Total 530 100 Output Total 520 500 Balance 10 -400 Intake: IV Fluids 530 NS (0.9%) 530 IVPB 100 ABX - ZOSYN 100 Output: SANJANA #1 170 250 Urine 250 250 Liquid Stool 100 Physical exam: Neuro- A+O x 3 Abdomen- soft, NTND, sanjana with serous fluid. Provena VAC in place. Ostomy bag with dark liquid melana and gas present Ext- + edema in upper and lower extremities Pathology: mesenteric LN negative for malignancy, perforated sigmoid colon with chronic diverticulitis, no neoplasia identified A/P: 89 M with ischemic cardiomyopathy, chronic anemia, dermatomyositis?, POD 5 from exploratory laparotomy, Hartmanns procedure for perforated diverticulitis, stable. - Ostomy began functioning last night, but patient continues to have melana indicating there may be a persistent GIB separate from his perforated diverticulitis. Plan to stat protonix for possible gastritis. Transfuse 1 PRBC for Hgb 6.8. - Patient needs aggressive PT today. I discussed with patient and nurse. - Neuro- appears A+O x 3, dc'ed [employer] - CV- h/o nonischemic cardiomyopathy, intermittent postop afib resolved, on MTP for rate control, no anticoag at this time for recent anemia - Resp- COVID 19 negative; no precautions, aggressive IS - ID- Patient remains afebrile, with no WBC-- on Zosyn for +clostridium, + bacteroides, +strep from intraoperative peritoneal fluid cx. Can DC Zosyn after 7 day course, on 03/04. - Renal- adequate UOP - Heme- Hct stable at 21; transfuse 1 PRBC today. May need GI consult/tagged RBC scan if melena persists - Ppx- Protonix, HSQ on hold for anemia; if Hct remains stable can restart tomorrow - Lines- Triple lumen IJ placed 02/24-- can DC today - Discussed with hospitalist, Norberto Burrows and patient's nurse, Reilly. - I called and left a message to update patient's daughter, Carmelita, on how patient is doing post operatively
--- NOTE | 2020-03-01 10:53 | PN ---
Progress Note - Progress Note Date of Service: 03/01/20 Note: S: POD # 5. Some pain (incisional), mostly when he coughs. No N/V. Would like to try some Jello. Per reports has had some flatus in the colostomy. Getting one unit PRBCs this a.m. Has not been ambulating. Patient states SCDs are inflating unequally. O: Vital Signs - 8 hr 03/01/20 03/01/20 03/01/20 03:32 05:15 06:31 Temperature 97.9 F Pulse Rate 84 Respiratory 16 17 16 Rate Blood Pressure 135/62 (mmHg) O2 Sat by Pulse 99 Oximetry 03/01/20 03/01/20 07:41 08:00 Temperature 99.1 F Pulse Rate 90 Respiratory 20 18 Rate Blood Pressure 149/63 (mmHg) O2 Sat by Pulse 100 Oximetry Intake and Output Last 24 Hours 02/28/20 02/29/20 03/01/20 03/02/20 06:59 06:59 06:59 06:59 Intake Total 280 1340 1080 Output Total 3630 2095 1495 Balance -3350 -755 -415 Intake: IV Fluids 1340 930 ABX - ZOSYN 217 100 LR 972 NS (0.9%) 51 630 kcl 100 200 IVPB 100 ABX - ZOSYN 100 Oral 50 Packed Cells 230 NG Tube Irrigate Amount 50 Output: NG Tube Drainage Amount 385 300 RADHA #1 715 570 620 Urine 600 Muniz 2530 1225 175 Liquid Stool 100 Gen: appears comfortable. NAD. Occ cough. Heart: reg Lungs: clear; no sig rales, rhonchi, or wheezes Abd: (Dr. Robert in to see and examine patient). Prevena in place. Ostomy w/ small to mod amt of dark liquid stool. Appliance removed by Dr. Robert. Mucosa appears viable, though difficult to completely visualize. Soft; minimal tenderness. Prevena in place. Extr: SCDs on . No sig edema. No tenderness. Labs: Laboratory Tests 02/29/20 03/01/20 03/01/20 04:50 05:12 05:12 WBC 7.9 Hgb 6.8 L Total Creatine Kinase 309 H Troponin I 0.37 H* Albumin 1.5 L A/P: s/p ex lap, sigmoid rsxn for perf'd colon, gradually improving. pre- and postop anemia w/ melanotic stool (will recheck stool hemoccult) Getting transfused today; recheck labs in a.m. Discussed w/ Dr. Lozoya, who also saw the patient. Ok to start clears ad go Encourage ambulation/mobility.
--- NOTE | 2020-03-01 11:01 | PN ---
Subjective Date of Service: 03/01/20 Interval History: Patient's complaints are thirst and abdominal pain, mainly with coughing. Patient states that his cough is rare and sometimes productive. Patient denies CP, SOB, F/C, N/V. Patient has had no issues with his sips of clears. Family History: Unchanged from Admission Social History: Unchanged from Admission Past Medical History: Unchanged from Admission Objective Active Medications: Acetaminophen (Tylenol Adult Liq*) 975 mg PO Q8H [facility] Stop: 03/01/20 15:59 Last Admin: 03/01/20 08:05 Dose: 975 mg Guaifenesin (Mucinex*) 600 mg PO BID [facility] Last Admin: 03/01/20 08:07 Dose: 600 mg Heparin Sodium (Porcine) (Heparin Flush Picc/Ml/Cvc(*)) 1 ml FLUSH 0600,1800 [facility]; Protocol Last Admin: 03/01/20 05:16 Dose: 3 ml Hydromorphone HCl (Dilaudid Inj*) 0.5 mg IV SLOW PU Q4H PRN PRN Reason: PAIN - SEVERE Last Admin: 03/01/20 05:15 Dose: 0.5 mg Piperacillin Sod/Tazobactam (Sod 3.375 gm/ Sodium Chloride) 100 mls @ 25 mls/ hr IVPB Q8H [facility] Last Admin: 03/01/20 08:04 Dose: 25 mls/hr Metoprolol Tartrate (Lopressor Tab*) 12.5 mg PO Q12HR [facility] Last Admin: 03/01/20 08:07 Dose: 12.5 mg Ondansetron HCl (Zofran Inj*) 4 mg IV Q6H PRN PRN Reason: NAUSEA Last Admin: 02/28/20 18:14 Dose: 4 mg Oxycodone/Acetaminophen (Percocet 5/325 Tab*) 1 tab PO Q4H PRN PRN Reason: PAIN Pantoprazole Sodium (Protonix Iv*) 40 mg IV Q24H [facility] Last Admin: 03/01/20 10:21 Dose: 40 mg Pharmacy Consult (Zosyn Per Pharmacy*) 1 note FOLLOW UP .ZOSYN PER PHARMACY [facility] Vital Signs - 8 hr 03/01/20 03/01/20 03/01/20 03:32 05:15 06:31 Temperature 97.9 F Pulse Rate 84 Respiratory 16 17 16 Rate Blood Pressure 135/62 (mmHg) O2 Sat by Pulse 99 Oximetry 03/01/20 03/01/20 07:41 08:00 Temperature 99.1 F Pulse Rate 90 Respiratory 20 18 Rate Blood Pressure 149/63 (mmHg) O2 Sat by Pulse 100 Oximetry Oxygen Devices in Use Now: None Appearance: Patient is an 89yo male who appears stated age and is sitting in the bed in NAD. Eyes: No Scleral Icterus, PERRLA Ears/Nose/Mouth/Throat: NL Teeth, Lips, Gums, Clear Oropharnyx, Mucous Membranes Moist Neck: NL Appearance and Movements; NL JVP, Trachea Midline Respiratory: Symmetrical Chest Expansion and Respiratory Effort, Clear to Auscultation Cardiovascular: NL Sounds; No Murmurs; No JVD, RRR, - - Trace Edema in all extremities Abdominal: - - Colostomy draining melanotic stool. Covered midline dressing. Lymphatic: No Cervical Adenopathy Extremities: No Clubbing, Cyanosis Neurological: Alert and Oriented x 3, NL Sensation, NL Muscle Strength and Tone , - - CN II-XII intact. Result Diagrams: 03/01/20 05:12 02/29/20 19:50 Additional Lab and Data: Lab Results Microbiology and Other Data: Microbiology 02/25/20 11:46 Gram Stain - Final Misc Source (See Comment) - Peritoneal Wound Culture - Preliminary Streptococcus Anginosus 02/25/20 11:46 Anaerobic Culture - Preliminary Body Fluid Bacteroides Thetaiotaomicron Clostridium Clostridiiforme 02/25/20 06:21 Stool Occult Blood (DANNY) - Final Stool Assess/Plan/Problems-Billing Assessment: Patient is an 89yo male with a PMH for Thallessemia, MARIELOS, recently diagnosed NICM and rhabdomyolysis of unclear cause, here with perforated bowel S/P Repair. Improving. - Patient Problems (1) Rupture of bowel Current Visit: Yes Status: Acute Code(s): K63.1 - PERFORATION OF INTESTINE ( NONTRAUMATIC) SNOMED Code(s): 718007575 Comment: - S/P Repair and Jose L's procedure on 02/24. - Needed Vasopressors Post-op for septic shock, now weaned off - NG tube removed, Wound Vac, RADHA Drain, management per surgery. - Steroids possibly contributed to bowel friability and rupture - Possible underlying lesion intraop, Pathology shows benign LN and ruptured diverticulitis. - Continue Zosyn 02/24-03/04 - With Melena, concern for persistent upstream lesion and may need further GI evaluation. 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 - Viral process possible, Negative tick borne and viral respiratory panel. - Trop persistently elevated. Trend (3) Atrial fibrillation Current Visit: Yes Status: Acute Code(s): I48.91 - UNSPECIFIED ATRIAL FIBRILLATION SNOMED Code(s): 81959976 Comment: - New onset, unclear duration. - Possibly actually MAT - No anticoagulation at this time, decision will have to be made when surgery more remote. - Monitor Tele - Rate controlled on Metoprolol (4) Anemia Current Visit: No Status: Acute Code(s): D64.9 - ANEMIA, UNSPECIFIED SNOMED Code(s): 758531040 Comment: - Acute on Chronic, Combination of MARIELOS and Thallassemia Minor with acute blood loss anemia. - Concern for chronic blood loss. Less likely due to 2 prior negative FOBT - CT scan shows possible small bowel lesion which would not have been seen on EGD or Colonoscopy - Transfuse to >7 S/P 3u PRBC, 4th transfusing on 03/01 - B12 normal (5) Rhabdomyolysis Current Visit: No Status: Acute Code(s): M62.82 - RHABDOMYOLYSIS SNOMED Code(s): 414580415 Comment: - Unclear cause, trending down (Got several doses of steroids outpatient) - Antecedent illness brings up possiblity of viral process (COVID negative) - Had myalgias and non-resolving facial rash, Dermatomyositis still possible - Trend CK (6) HTN (hypertension) Current Visit: No Status: Acute Code(s): I10 - ESSENTIAL (PRIMARY) HYPERTENSION SNOMED Code(s): 02471236 Comment: - Hold BP meds post-op except 1/2 dose metoprolol - Normotensive (7) DVT prophylaxis Current Visit: No Status: Acute Code(s): FEM2956 - SNOMED Code(s): 460300317 Comment: - SCDs in setting of anemia and melena Status and Disposition: Inpatient
[2020-03-01 11:02] LABS: Creatine Kinase 309 U/L (10-223)
[2020-03-01 11:03] LABS: Troponin I 0.37 ng/mL (<0.03)
[2020-03-01] MEDS: oxyCODONE/Acetamin 5/325 MG* TAB PO PRN (19:47)
[2020-03-01 20:57] LABS: BUN/Creatinine Ratio 36.9 (8-20); Calcium 6.8 mg/dL (8.6-10.3); EGFR African American 75.8 (>60); EGFR Non-African American 62.7 (>60); Magnesium 1.9 mg/dL (1.9-2.7); Potassium 3.5 mmol/L (3.5-5.0)
[2020-03-01] MEDS ORDERED: Magnesium Sulfate 2 GM IV* 2 GM/50 ML BAG IVPB ONE (21:55)
[2020-03-01] MEDS ORDERED: Potassium Chlor TAB* 20 MEQ TAB.ER PO ONE (21:55)
[2020-03-02] MEDS: ZOSYN 3.375 GM Q8H per EXTENDED INFUSION IVPB SCH ×6 (00:24→16:42)
[2020-03-02 06:28] LABS: Hematocrit 24 % (42-52); Hemoglobin 7.9 g/dL (14.0-18.0); Mean Corpuscular HGB Conc 33 g/dL (31-36); Mean Corpuscular Hemoglobin 27 pg (27-31); Mean Corpuscular Volume 81 fL (80-94); Mean Platelet Volume 8.5 fL (7.4-10.4); Platelet Count 204 10^3/uL (150-450); Red Blood Count 2.93 10^6 /uL (4.18-5.48); Red Cell Distribution Width 16 % (10-15); White Blood Count 9.5 10^3/uL (3.5-10.8)
[2020-03-02 06:38] LABS: BUN/Creatinine Ratio 33.3 (8-20); Calcium 6.7 mg/dL (8.6-10.3); EGFR African American 75.8 (>60); EGFR Non-African American 62.7 (>60); Potassium 3.8 mmol/L (3.5-5.0)
[2020-03-02 07:37] LABS: ABS Eosinophils 0.1 10^3/ul (0-0.6); ABS Lymphocytes 0.5 10^3/ul (1.0-4.8); ABS Monocytes 0.6 10^3/ul (0-0.8); ABS Neutrophils 8.3 10^3/ul (1.5-7.7); Eosinophil % 1.2 %; Nucleated Red Blood Cells % 0.3
[2020-03-02 07:40] LABS: Polychromasia 1+
[2020-03-02] MEDS: oxyCODONE/Acetamin 5/325 MG* TAB PO PRN ×2 (09:29→22:07)
[2020-03-02] MEDS: guaiFENesin ER TAB 600 MG PO SCH ×2 (09:30→22:08)
[2020-03-02] MEDS: Metoprolol Tartrate TAB* 25 MG PO SCH ×2 (09:30→22:07)
[2020-03-02] MEDS: Pantoprazole IV* 40 MG IV SCH (09:31)
--- NOTE | 2020-03-02 10:31 | PN ---
Progress Note - Progress Note Date of Service: 03/02/20 Note: Surgery Progress Note S: Patient is doing well. He was able to work with PT and sit up yesterday. He has no nausea or emesis. He has pain is his abdomen when he coughs or sits up. He remains afebrile. His Hct cyndie appropriately after 1 PRBC yesterday. O: Vital Signs - 24 hr 03/01/20 03/01/20 03/01/20 10:36 11:17 12:00 Temperature 97.8 F 97.5 F 98.6 F Pulse Rate 61 55 65 Respiratory 18 16 18 Rate Blood Pressure 125/42 128/40 132/41 (mmHg) O2 Sat by Pulse 99 99 98 Oximetry 03/01/20 03/01/20 03/01/20 15:03 16:53 18:15 Temperature 97.6 F Pulse Rate 70 Respiratory 18 20 18 Rate Blood Pressure 140/50 (mmHg) O2 Sat by Pulse 100 Oximetry 03/01/20 03/01/20 03/01/20 19:47 20:14 20:36 Temperature 98 F Pulse Rate 77 Respiratory 18 16 20 Rate Blood Pressure 132/52 (mmHg) O2 Sat by Pulse 97 Oximetry 03/01/20 03/02/20 03/02/20 20:44 00:32 02:24 Temperature 98.1 F Pulse Rate 59 Respiratory 20 20 18 Rate Blood Pressure 141/52 (mmHg) O2 Sat by Pulse 97 100 Oximetry 03/02/20 03/02/20 03:44 09:29 Temperature 97.4 F Pulse Rate 68 Respiratory 20 18 Rate Blood Pressure 142/50 (mmHg) O2 Sat by Pulse 99 Oximetry Laboratory Results - last 24 hr 03/01/20 03/01/20 03/01/20 05:12 05:12 20:30 WBC RBC Hgb Hct MCV MCH MCHC RDW Plt Count MPV Neut % (Auto) Lymph % (Auto) [place] % (Auto) Eos % (Auto) Baso % (Auto) Absolute Neuts (auto) Absolute Lymphs (auto) Absolute Monos (auto) Absolute Eos (auto) Absolute Basos (auto) Absolute Nucleated RBC Immature Gran % Neutrophils % Lymphocytes % Monocytes % Metamyelocytes % Myelocytes % Nucleated RBC % Nucleated RBCs/100 WBC Normal RBC Morphology Polychromasia Anisocytosis Elliptocytes Sodium 147 H Potassium 3.5 Chloride 118 H Carbon Dioxide 23 Anion Gap 6 BUN 41 H Creatinine 1.11 Est GFR ( Amer) 75.8 Est GFR (Non-Af Amer) 62.7 BUN/Creatinine Ratio 36.9 H Glucose 94 Calcium 6.8 L Magnesium 2.2 1.9 Total Creatine Kinase 309 H Troponin I 0.37 H* Blood Type O Positive Antibody Screen Negative Crossmatch See Detail 03/02/20 03/02/20 06:00 06:00 WBC 9.5 RBC 2.93 L Hgb 7.9 L Hct 24 L MCV 81 MCH 27 MCHC 33 RDW 16 H Plt Count 204 MPV 8.5 Neut % (Auto) 87.4 Lymph % (Auto) 5.0 [place] % (Auto) 6.2 Eos % (Auto) 1.2 Baso % (Auto) 0.2 Absolute Neuts (auto) 8.3 H Absolute Lymphs (auto) 0.5 L Absolute Monos (auto) 0.6 Absolute Eos (auto) 0.1 Absolute Basos (auto) 0.0 Absolute Nucleated RBC 0.0 Immature Gran % 2.0 Neutrophils % 90.0 Lymphocytes % 2.0 Monocytes % 6.0 Metamyelocytes % 1.0 Myelocytes % 1.0 Nucleated RBC % 0.3 Nucleated RBCs/100 WBC 1.0 H Normal RBC Morphology Not Reportable Polychromasia 1+ Anisocytosis 1+ Elliptocytes 1+ Sodium 147 H Potassium 3.8 Chloride 118 H Carbon Dioxide 22 Anion Gap 7 BUN 37 H Creatinine 1.11 Est GFR ( Amer) 75.8 Est GFR (Non-Af Amer) 62.7 BUN/Creatinine Ratio 33.3 H Glucose 84 Calcium 6.7 L Magnesium Total Creatine Kinase Troponin I Blood Type Antibody Screen Crossmatch Intake & Output 03/01/20 03/02/20 03/02/20 22:59 06:59 14:59 Intake Total 240 684 Output Total 325 170 Balance -85 514 Intake: IV Fluids 444 ABX - ZOSYN 305 Magnesium 52 NS (0.9%) 87 Oral 240 240 Output: RADHA #1 200 20 Urine 75 150 Colostomy 50 Other: Estimated Void Large Medium # Voids 1 1 Physical exam: Abdomen- soft, non distended, minimally tender near the ostomy. Incision c/d/ i. Provena vac removed and staple line c/d/i; RADHA with serous fluid. Ostomy cleaned with normal saline and inner mucosa appears pink and patent. Melena present in the ostomy appliance, which was changed today. A/P: 89 M with ischemic cardiomyopathy, chronic anemia, dermatomyositis?, POD 6 from exploratory laparotomy, Hartmanns procedure for perforated diverticulitis, stable. - Ostomy has been functioning with melena present, also present from his rectal stump. Etiology of GIB is unclear, but his Hct has remained stable. Discussed with hospitalist, who will consult GI. - Continue PT/OT - Will advance diet to GI soft - Neuro- appears A+O x 3 - CV- h/o nonischemic cardiomyopathy, intermittent postop afib resolved, on MTP for rate control, no anticoag at this time for recent anemia. Has occasional runs of Vtach. Hospitalist team has discussed with cardiology. Repeat echo today and possible formal cards consult - Resp- COVID 19 negative; no precautions, aggressive IS - ID- Patient remains afebrile, with no WBC-- on Zosyn for +clostridium, + bacteroides, +strep from intraoperative peritoneal fluid cx. Can DC Zosyn after 7 day course, on 03/04. - Renal- adequate UOP, Cr normalized - Heme- Hct increased appropriately with 1 PRBC. Does not appear that he has ongoing GIB, but source is still unknown - Ppx- Protonix, HSQ on hold for anemiaable can restart tomorrow - Lines- Triple lumen IJ placed 02/24-- discussed with nurse, Vanessa, to please obtain PIV or midline and remove triple lumen today - Dispo- discussed with manager social services, will depend on PT recs, but likely rehab unless patient and family decline. Likely will be in hospital for several more days to evaluate cards and GI work up - Discussed with hospitalist, Norberto Burrows and patient's nurse, Vanessa - I called updated patient's daughter, Carmelita, on how patient is doing post operatively. She does wish for the patient to come home rather than to rehab, if possible
--- NOTE | 2020-03-02 11:23 | PN ---
Subjective Date of Service: 03/02/20 Interval History: Patient is complaining of cough, patient is bringing up some sputum which he is suctioning out of his throat. Patient denies CP, SOB, F/C, N/V, dizziness, palpitations, or other pain. Patient is hesitant to get out of bed with PT due to general feelings of tiredness. Family History: Unchanged from Admission Social History: Unchanged from Admission Past Medical History: Unchanged from Admission Objective Active Medications: Guaifenesin (Mucinex*) 600 mg PO BID [facility] Last Admin: 03/02/20 09:30 Dose: 600 mg Heparin Sodium (Porcine) (Heparin Flush Picc/Ml/Cvc(*)) 1 ml FLUSH 0600,1800 [facility]; Protocol Last Admin: 03/02/20 06:09 Dose: 3 ml Hydromorphone HCl (Dilaudid Inj*) 0.5 mg IV SLOW PU Q4H PRN PRN Reason: PAIN - SEVERE Last Admin: 03/01/20 15:03 Dose: 0.5 mg Piperacillin Sod/Tazobactam (Sod 3.375 gm/ Sodium Chloride) 100 mls @ 25 mls/ hr IVPB Q8H [facility] Last Admin: 03/02/20 09:31 Dose: 25 mls/hr Metoprolol Tartrate (Lopressor Tab*) 12.5 mg PO Q12HR [facility] Last Admin: 03/02/20 09:30 Dose: 12.5 mg Ondansetron HCl (Zofran Inj*) 4 mg IV Q6H PRN PRN Reason: NAUSEA Last Admin: 02/28/20 18:14 Dose: 4 mg Oxycodone/Acetaminophen (Percocet 5/325 Tab*) 1 tab PO Q4H PRN PRN Reason: PAIN Last Admin: 03/02/20 09:29 Dose: 1 tab Pantoprazole Sodium (Protonix Iv*) 40 mg IV Q24H [facility] Last Admin: 03/02/20 09:31 Dose: 40 mg Pharmacy Consult (Zosyn Per Pharmacy*) 1 note FOLLOW UP .ZOSYN PER PHARMACY [facility] Vital Signs - 8 hr 03/02/20 03/02/20 03:44 09:29 Temperature 97.4 F Pulse Rate 68 Respiratory 20 18 Rate Blood Pressure 142/50 (mmHg) O2 Sat by Pulse 99 Oximetry Oxygen Devices in Use Now: None Appearance: Patient is an 89yo male who appears stated age and is sitting in the bed in NAD. Eyes: No Scleral Icterus, PERRLA Ears/Nose/Mouth/Throat: NL Teeth, Lips, Gums, Clear Oropharnyx, Mucous Membranes Moist Neck: NL Appearance and Movements; NL JVP, Trachea Midline Respiratory: Symmetrical Chest Expansion and Respiratory Effort, Clear to Auscultation Cardiovascular: NL Sounds; No Murmurs; No JVD, - - 1+ edema, Irregularly Irregular rhythm Abdominal: - - Tenderness to palptation, Midline staple line, RADHA drain in place. Lymphatic: No Cervical Adenopathy Extremities: No Clubbing, Cyanosis Skin: No Nodules or Sclerosis Neurological: Alert and Oriented x 3, NL Sensation, NL Muscle Strength and Tone , - - Cn II-XII intact. Result Diagrams: 03/02/20 06:00 03/02/20 06:00 Additional Lab and Data: Lab Results Microbiology and Other Data: Microbiology 02/25/20 11:46 Gram Stain - Final Misc Source (See Comment) - Peritoneal Wound Culture - Preliminary Streptococcus Anginosus 02/25/20 11:46 Anaerobic Culture - Preliminary Body Fluid Bacteroides Thetaiotaomicron Clostridium Clostridiiforme 02/25/20 06:21 Stool Occult Blood (DANNY) - Final Stool Assess/Plan/Problems-Billing Assessment: Patient is an 89yo male with a PMH for Thallessemia, MARIELOS, recently diagnosed NICM and rhabdomyolysis of unclear cause, here with perforated bowel S/P Repair. Improving. - Patient Problems (1) Rupture of bowel Current Visit: Yes Status: Acute Code(s): K63.1 - PERFORATION OF INTESTINE ( NONTRAUMATIC) SNOMED Code(s): 375931869 Comment: - S/P Repair and Jose L's procedure on 02/24. - Needed Vasopressors Post-op for septic shock, now weaned off - NG tube Wound Vac, RADHA Drain removed, management per surgery. - Steroids possibly contributed to bowel friability and rupture - Possible underlying lesion intraop, Pathology shows benign LN and ruptured diverticulitis. - Continue Zosyn 02/24-03/04 - With Melena, concern for persistent upstream lesion and may need further GI evaluation. Hemoglobin stable. No intraoperative findings concerning for mass. (2) Cardiomyopathy Current Visit: Yes Status: Acute Code(s): I42.9 - CARDIOMYOPATHY, UNSPECIFIED SNOMED Code(s): 94745872 Comment: - Diagnosed in 01/2020 - Non-Obstructive Cath, Echo shows disproportionate hypertrophy to HTN - Unclear cause, Concern for dermatomyositis with myocardial involvement (Less likely due to normal MELLISSA and Anti-Jennifer, but not ruled out) - Was scheduled for further cardiac workup to help determine etiology. - Viral process possible, Negative tick borne and viral respiratory panel. - Trop persistently elevated. Trend - Frequent PVCs with runs of VT usually 8-12 beats. Repeat echo. Have Asked Cardiology to reconsult. Possible frequent ectopy could be contributing to cardiomyopathy (3) Atrial fibrillation Current Visit: Yes Status: Acute Code(s): I48.91 - UNSPECIFIED ATRIAL FIBRILLATION SNOMED Code(s): 03922084 Comment: - New onset, unclear duration. - No anticoagulation at this time, decision will have to be made when surgery more remote and likely when melena resolved - Monitor Tele - Rate controlled on Metoprolol (4) Anemia Current Visit: No Status: Acute Code(s): D64.9 - ANEMIA, UNSPECIFIED SNOMED Code(s): 062793536 Comment: - Acute on Chronic, Combination of MARIELOS and Thallassemia Minor with acute blood loss anemia. - Concern for chronic blood loss. Less likely due to 2 prior negative FOBT - CT scan shows possible small bowel lesion which would not have been seen on EGD or Colonoscopy - Transfuse to >7 S/P 4u PRBC - B12 normal (5) Rhabdomyolysis Current Visit: No Status: Acute Code(s): M62.82 - RHABDOMYOLYSIS SNOMED Code(s): 915013720 Comment: - Unclear cause, trending down (Got several doses of steroids outpatient) - Antecedent illness brings up possiblity of viral process (COVID negative) - Had myalgias and non-resolving facial rash, Dermatomyositis still possible - Trend CK - Significant muscle weakness persistent (6) HTN (hypertension) Current Visit: No Status: Acute Code(s): I10 - ESSENTIAL (PRIMARY) HYPERTENSION SNOMED Code(s): 78503728 Comment: - Hold BP meds post-op except metoprolol - Normotensive (7) DVT prophylaxis Current Visit: No Status: Acute Code(s): DAW2157 - SNOMED Code(s): 990991570 Comment: - SCDs in setting of anemia and melena Status and Disposition: Inpatient
--- NOTE | 2020-03-02 12:35 | ECHO ---
*[facility]* [place] [address] Fax #: [phone] Transthoracic Echocardiogram Patient: Beto Perez : 1930 Study Date: 03/02/2020 Age: 89 Gender: M HR: 87 bpm Height: 68 in /172.7 cm BSA: 2.07 m^2 Weight: 204.6 lb /93 kg BMI: 31.2 kg/m^2 *Director Of Business Development: * Zulema Caraballo RDCS RN *Referring Physician: * Norberto Davis *Reading Physician: * Ivonne Thakkar MD Indications: Cardiomyopathy. History: S/P repair of perforated bowel 02/25/2020. Atrial fibrillation. PMH: Cardiomyopathy. Risk factors: Hypertension. Conclusions Summary: - Left ventricle: The cavity size is normal. Wall thickness is moderately increased. Systolic function is moderately reduced. The estimated ejection fraction is 40-45%. Severe hypo and akinesis of the base of the posterior wall extending to the septum and inferior wall. Doppler parameters are consistent with abnormal left ventricular relaxation (grade 1 diastolic dysfunction). - Right ventricle: The cavity size is normal. Wall thickness is mildly increased. Systolic function is normal. - Mitral valve: There is mild regurgitation. - Aortic valve: There is mild regurgitation. - Tricuspid valve: There is mild regurgitation. - Ascending aorta: The ascending aorta is mildly dilated at 3.7 cm. - Pericardium, extracardiac: There is a left pleural effusion. - Pulmonary arteries: Systolic pressure is at the upper limits of normal, estimated to be 35 mm Hg. - Compared with prior echocardiogram of 01/11/2020, ejection fraction previously 30-35%, global hypokinesis now normalized, focal area noted prevously. Diastolic dysfunction has improved from pseudonormal. Right ventricle no longer dilated and systolic function has normalized. Prior AI estimated at mild to moderate, tricuspid regurgitation has improved fro moderate, pulmonary artery pressure has improved drom 56 mmHg. Study data: Transthoracic echocardiogram. Procedure: Transthoracic echocardiography was performed. Image quality was fair. The study was technically limited due to body habitus. Complete 2D, spectral Doppler, and color flow Doppler. Location: Bedside. Patient status: Inpatient. Patient room number: 350-02. Rhythm: Normal sinus rhythm with PVCs. Findings Left ventricle: The cavity size is normal. Wall thickness is moderately increased. Systolic function is moderately reduced. The estimated ejection fraction is 40-45%. Regional wall motion abnormalities: Hypokinesis of the basalanterolateral myocardium. Hypokinesis of the basal-midinferior myocardium. Hypokinesis of the basal-midinferolateral myocardium. Hypokinesis of the midinferoseptal myocardium. Doppler parameters are consistent with abnormal left ventricular relaxation (grade 1 diastolic dysfunction). Right ventricle: The cavity size is normal. Wall thickness is mildly increased. Systolic function is normal. Systolic pressure is at the upper limits of normal. Left atrium: The atrium is mildly dilated. Right atrium: The atrium is normal in size. Atrial septum: The atrial septum appears aneurysmal. Mitral valve: The leaflets are mildly thickened. There is mild regurgitation. Aortic valve: The valve is trileaflet. The leaflets are mildly thickened. There is no evidence of stenosis. There is mild regurgitation. Tricuspid valve: The leaflets are normal thickness. There is no evidence of stenosis. There is mild regurgitation. Pulmonic valve: Not well visualized. There is no evidence of stenosis. There is mild regurgitation. Aorta: Aortic root: The aortic root is mildly dilated at 3.9 cm. Ascending aorta: The ascending aorta is mildly dilated at 3.7 cm. Aortic arch: The aortic arch is not dilated. Pericardium: There is no significant pericardial effusion. There is a left pleural effusion. Pulmonary arteries: Not well visualized. Systolic pressure is at the upper limits of normal, estimated to be 35 mm Hg. Systemic veins: Inferior vena cava: Not well visualized. Measurements Left ventricle Value Ref Aortic valve Value Ref DEMETRI, LAX 4.3 cm 4.2 - 5.8 Shirlene diam, ED 2.4 cm ---- ESD, LAX 3.5 cm 2.5 - 4.0 Peak v, S 1.5 m/sec ---- FS, LAX (L) 19 % 25 - 43 VTI, S 29.6 cm ---- PW, ED (H) 1.6 cm 0.6 - 1.0 Mean grad, S 4.0 mm Hg ---- IVS/PW, ED 1.04 Peak grad, S 9.0 mm Hg ---- E', lat shirlene, TDI (L) 4.9 cm/sec >=10.0 LVOT/AV, VTI ratio 0.55 --- - E/e', lat shirlene, 13 AR peak v 4.1 m/sec ---- TDI AR PHT 380 ms ---- E', med shirlene, TDI (L) 4.2 cm/sec >=7.0 AR peak grad 67 mm Hg --- - E/e', med shirlene, 16 TDI Mitral valve Value Ref E', avg, TDI 4.6 cm/sec Peak E 0.66 m/sec ---- E/e', avg, TDI 14 <=14 Peak A 1.22 m/sec --- - Decel time 239 ms ---- LVOT Value Ref Peak E/A ratio 0.5 ---- Peak javon, S 0.95 m/sec VTI, S 16.4 cm Pulmonic valve Value Ref Mean grad, S 2 mm Hg Peak v, S 0.98 m/sec ---- Peak grad, S 4.0 mm Hg ---- Ventricular septum Value Ref IVS, ED (H) 1.7 cm 0.6 - 1.0 Tricuspid valve Value Ref Peak RV-RA grad, S 27 mm Hg ---- Right ventricle Value Ref Max TR javon 2.6 m/sec ---- DEMETRI, LAX 3.2 cm DEMETRI minor ax, A4C 2.8 cm 1.9 - 3.5 Aortic root Value Ref mid Root diam 3.9 cm <4.2 Pressure, S 35 mm Hg Ascending aorta Value Ref Left atrium Value Ref AAo AP diam, S 3.7 cm ---- AP dim, ES 3.90 cm 3.00 - 4.00 Aortic arch Value Ref ML dim, A4C 4.5 cm Arch diam 2.9 cm ---- SI dim, A4C 5.6 cm Vol/bsa, ES, 1-p 23 ml/m^2 12 - 37 Decending aorta Value Ref A4C Isidro peak javon 0.56 m/sec ---- Vol/bsa, ES, A/L 31 ml/m^2 16 - 34 Pulmonary artery Value Ref Right atrium Value Ref Pressure, S 35.0 mm Hg ---- ML dim, ES, A4C 3.5 cm 2.6 - 4.4 SI dim, ES, A4C 5.3 cm 3.4 - 5.3 Estimated RAP 8 mm Hg Legend: (L) and (H) marcia values outside specified reference range. Prepared and electronically signed by Ivonne Thakkar MD 03/02/2020 12:34
[2020-03-02] MEDS ORDERED: Magnesium Sulfate 1 GM IV* 1 GM/100 ML BAG IV ONE (15:07)
[2020-03-02] MEDS: KCL 20 MEQ/100 ML IVPREMIX* 20 MEQ/100 ML BAG IV SCH ×2 (16:45→18:47)
--- NOTE | 2020-03-02 19:31 | CONS ---
CC: Hospitalist Service; Dr. Lozoya; Dr. Oquendo * CARDIOLOGY CONSULTATION REPORT: DATE OF CONSULT: 03/02/20 REASON FOR CONSULT: Ventricular ectopy and cardiomyopathy. HISTORY OF PRESENT ILLNESS: Mr. Perez is an 89-year-old gentleman followed by Dr. Oquendo for a nonischemic cardiomyopathy. The patient had been seen by Dr. Oquendo on 02/24/20 due to syncope and an event monitor had been ordered and followup echo. The next day the patient presented to the emergency room with another syncopal episode as well as symptoms of the stomach flu, initially diarrhea then constipation, followed by dark stool. He then progressed to vomiting, diarrhea , and abdominal pain. In the emergency room, he was noted to have a perforated viscus and he underwent an admission to the ICU for medical management of his sepsis and he underwent sigmoid resection with colostomy. He required packed red blood cells and IV fluids perioperatively. 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 The patient is hard of hearing and it is hard to get a good history, but he denies currently feeling short of breath having chest pain or feeling dizzy. The patient reports he was able to eat some food, had some early satiety, but no nausea or vomiting. PAST MEDICAL HISTORY: 1. Paroxysmal atrial fibrillation (this admission). 2. Nonischemic cardiomyopathy (echo on 01/11/20 ejection fraction 30% to 35%). 3. Pulmonary hypertension (CHF/elevated PA pressure of 56 mmHg on 01/21/20). 4. Right bundle branch block. 5. Myositis, January 2020. CPKs up to 3000 following Entresto. 6. Iron deficiency anemia. 7. Hypertension. 8. Reflux. 9. Benign prostatic hypertrophy. 10. Hard of hearing. PAST SURGICAL HISTORY: Includes: 1. Hemorrhoidectomy, 2004. 2. Cataracts bilaterally, 2009. 3. Hip replacement, right, 2016. 4. Carpal tunnel surgery, 2017. 5. EGD for gastritis, 2019. MAJOR PROCDURES: 1. Cardiac catheterization on 01/28/20 showed plaque of 20% to 40%, no significant lesions. CURRENT INPATIENT MEDICATIONS: Include: 1. Mucinex 600 mg p.o. b.i.d. 2. Dilaudid p.r.n. 3. Toprol-XL 12.5 mg a day. 4. Zofran p.r.n. 5. Percocet p.r.n. 6. Protonix 40 mg IV q.24 hours. 7. Piperacillin/tazobactam. ALLERGIES: Include BEE VENOM and PROCAINE. FAMILY HISTORY: Significant that his father at age 80 of a stroke. He has 4 brothers with known cardiac disease. 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 No alcohol intake or recreational drug use. REVIEW OF SYSTEMS: Difficult to obtain, but again eating limited diet today with only early satiety, no orthopnea, negative for PND, negative for chest pain , muscle pain, mild incisional pain. PHYSICAL EXAM: On exam, the patient is 5 feet 8 inches, weighs 205 pounds. Blood pressure 109/42, pulse is 75 and regular, respiratory rate is 16, temperature 97. General Appearance: Older gentleman appears fit and muscular lying in bed at 20 degrees, appears comfortable, psychologically pleasant, tries to be cooperative, and follows commands when he hears them. Neurologically , awake, alert and oriented to person and place, very hard of hearing limiting conversation. Grossly normal sensory and motor functions of the extremities. Skin: Mediterranean complexion, warm and dry without appreciable cyanosis. HEENT: Mucous membranes were moist. Neck: Without appreciable increase in JVP. Breath sounds have crackles in the bases that improve with deep breathing. Coronary: S1, S2 regular without appreciable murmurs. Abdomen: Soft and nondistended. Colostomy palpated. Dressing not examined. Bowel sounds noted. Lower extremities: Free of edema and warm with palpable posterior tibial pulses. DIAGNOSTIC STUDIES/LAB DATA: Labs: White count 9.5, hematocrit 24, platelets 204. INR 1.2. Sodium 137, potassium 3.8, chloride 118, bicarb 22, anion gap 7, BUN 37, creatinine 1.1. Lactic acid on admission on 02/25/20 was 4.9, normalized. CPK 309 on 03/01/20, improved from 538 on 02/27/20. Troponins this admission: #1 was 0.26 on 02/25/20; #2 was 0.45 on 02/28/20; #3 was 0.42 on ; #4 was 0.37 on 03/01/20. Total protein 3.5, albumin 1.5, vitamin B12 of 775, TSH on 02/25/20 was 1.56. Urinalysis; 3+ blood, pH of 5, specific gravity 1.024, positive for white and red blood cells, negative for bacteria or glucose. Serology, COVID undetected on 02/26/20. Cardiac catheterization on 02/26/20 shows LAD with luminal plaque less than 20% , circumflex had an OM branch with 40% occlusion at the ostium, right coronary artery was dominant with no significant disease. Echocardiogram today on 03/02/20 showed an ejection fraction of 40% to 45% with moderate left ventricular hypertrophy, severe hypo to akinesis at the base of the posterior wall and abnormal diastolic filling, right ventricular hypertrophy noted, mild valvular insufficiency, ascending aorta 3.7 cm and left pleural effusion noted. PA pressure 35 mmHg (compared with echo of 01/11/20, EF improved from 30% to 35%, PA pressure improved from 56 mmHg). A 12-lead ECG from 02/26/20 shows atrial fibrillation with a rapid ventricular rate of 123 beats a minute with a single PVC. A 12-lead ECG from 03/02/20 shows normal sinus rhythm at 76 beats a minute, left axis deviation, -60 with left anterior fascicular block and right bundle branch block. He has flattened T waves and a corrected QT interval of 456 milliseconds. Most recent chest x-ray of 02/25/20 showing cardiomegaly, no focal airspace opacification or pleural effusion. Chest and abdominal CT from 02/25/20 consistent with sigmoidal perforations, generalized small bowel hyperemia and thickening, pneumoperitoneum with ascites , bilateral pleural effusions, diverticulosis and an 8 mm pulmonary nodule along the right minor fissure. ASSESSMENT AND PLAN: In summary, Kan Perez is an 89-year-old gentleman who underwent surgery for a perforated viscus on 02/25/20. He has a nonischemic cardiomyopathy that is improved compared with January and his postoperative period has been complicated by paroxysmal atrial fibrillation and runs of nonsustained ventricular tachycardia, monomorphic runs up to 7 to 8 beats in a row of which the patient is asymptomatic. The patient presented with recurrent syncopal episodes with a perforated viscus. For the patient's initial presentation of syncope, this could have been related to ventricular tachycardia, but could also have been related to a volume or vagal issues related to the perforated viscus. Currently for the patient's nonsustained ventricular tachycardia and paroxysmal atrial fibrillation, he has ongoing metabolic issues of marked anemia, this is longstanding going back at least as far as 2010 and is probably not acutely contributing. The patient appears dehydrated, which is new on this admission where his BUN was 70 on the day he arrived. Additionally, he has potassium and magnesium in the lower ranges of normal currently and his cardiomyopathy and postoperative changes put him at risk for dysrhythmia and age and pleural effusions put him at risk for paroxysmal AFib. For the ventricular tachycardia, I am recommending a more aggressive beta- blockade, recommended short acting Lopressor 25 mg b.i.d. and we can titrate to rhythm control and vitals. This will also help his nonischemic cardiomyopathy. I would ensure that his electrolytes are optimized and I have recommended one time extra potassium and magnesium. For the patient's PAF post op, if/when able initiate anticoagulation. He appears to be a candidate for Eliquis. Antiarrhythmic options as above. Sotalol a potential other option at renal dosing. Amiodarone is the potential option in the future, but when he presented his LFTs were up. In looking at Dr. Bowen's comprehensive consultation, we are still not sure what caused this elevated CPK and I would like to avoid medications with potential for complex side effects if we are able. 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 Additional future options when he is further out in his convalescence would include evaluation by an bundle shaker for possible ablation if he has been having asymptomatic monomorphic ventricular tachycardia in the past. This could even account or contribute to his cardiomyopathy. The elevated troponins are likely type 2 ischemia, demand ischemia and beta- ranjan will help this during his post-operative convalescent period as well. It should be noted that whatever caused the rise in his CPK could contribute to his cardiomyopathy as well and additionally could impact his renal function. The patient's ethnicity puts him at risk for G6PD deficiency/brijesh sensitivity, and I wonder if this could be a factor in his chronic anemia. Consider if never tested. Per Up to Date CK elevations seen with this in elderly patients. We will follow him with you. He is medically complex. Thank you for allowing me to assist in this nice gentleman's care. [id number]/[facility] #: [id number] ZACHARY
[2020-03-03] MEDS: ZOSYN 3.375 GM Q8H per EXTENDED INFUSION IVPB SCH ×8 (01:12→23:19)
[2020-03-03 06:17] LABS: Hematocrit 24 % (42-52); Hemoglobin 8.1 g/dL (14.0-18.0); Mean Corpuscular HGB Conc 34 g/dL (31-36); Mean Corpuscular Hemoglobin 27 pg (27-31); Mean Corpuscular Volume 81 fL (80-94); Mean Platelet Volume 8.6 fL (7.4-10.4); Platelet Count 222 10^3/uL (150-450); Red Blood Count 2.95 10^6 /uL (4.18-5.48); Red Cell Distribution Width 16 % (10-15); White Blood Count 9.3 10^3/uL (3.5-10.8)
[2020-03-03 06:42] LABS: ALT 20 U/L (7-52); AST 59 U/L (13-39); Albumin 1.5 g/dL (3.2-5.2); Albumin/Globulin Ratio 0.8 (1-3); Alkaline Phosphatase 56 U/L (34-104); BUN/Creatinine Ratio 28.8 (8-20); Blood Urea Nitrogen 32 mg/dL (6-24); CO2 Carbon Dioxide 23 mmol/L (22-32); Calcium 6.6 mg/dL (8.6-10.3); Creatine Kinase 372 U/L (10-223); EGFR African American 75.8 (>60); EGFR Non-African American 62.7 (>60); Glucose 113 mg/dL (70-100); Magnesium 2.2 mg/dL (1.9-2.7); Potassium 3.9 mmol/L (3.5-5.0); Total Protein 3.5 g/dL (6.4-8.9)
[2020-03-03 06:43] LABS: Anion Gap 4 mmol/L (2-11); Chloride 119 mmol/L (101-111); Sodium 146 mmol/L (135-145)
[2020-03-03 06:57] LABS: Troponin I 0.28 ng/mL (<0.03)
[2020-03-03 08:16] LABS: ABS Eosinophils 0.1 10^3/ul (0-0.6); ABS Lymphocytes 0.5 10^3/ul (1.0-4.8); ABS Monocytes 0.5 10^3/ul (0-0.8); ABS Neutrophils 8.2 10^3/ul (1.5-7.7); Eosinophil % 0.9 %; Lymphocyte % 5.3 %; Nucleated Red Blood Cells % 0.2
[2020-03-03] MEDS: guaiFENesin ER TAB 600 MG PO SCH ×2 (08:31→21:09)
[2020-03-03] MEDS: oxyCODONE/Acetamin 5/325 MG* TAB PO PRN ×2 (08:31→15:53)
[2020-03-03] MEDS: Metoprolol Tartrate TAB* 25 MG PO SCH ×2 (08:31→21:09)
[2020-03-03] MEDS: Pantoprazole IV* 40 MG IV SCH (09:23)
--- NOTE | 2020-03-03 09:40 | PN ---
Progress Note - Progress Note Date of Service: 03/03/20 SOAP: Subjective: NAD has ambulated again last night, no nausea, tolerated soft breakfast [] Objective: Vital Signs Temp 98.9 F 03/03/20 08:00 Pulse 70 03/03/20 08:00 Resp 20 03/03/20 08:31 BP 122/47 03/03/20 08:00 Pulse Ox 97 03/03/20 08:00 Intake & Output 03/02/20 03/03/20 03/03/20 18:59 06:59 18:59 Intake Total 360 Output Total 445 505 150 Balance -85 -505 -150 Intake: Oral 360 Output: RADHA #1 220 180 Urine 125 275 150 Colostomy 100 50 Other: Date of Last Bowel 03/03/2020 Movement # Bowel Movements 2 Estimated Stool Amount Small # Voids 1 Laboratory Tests 03/03/20 06:00 WBC 9.3 Hgb 8.1 L Hct 24 L PEX GEN: NAD Chest: CTAB CVS: RRR Abd: soft, non tender, ostomy with melenotic stool midline incision c/d/i petty in place RADHA with serous output slightly cloudy Ext: calves soft non tender + edema but improved [] Assessment: A/P: 89 M with ischemic cardiomyopathy, chronic anemia, dermatomyositis, POD 7 from exploratory laparotomy, Hartmanns procedure for perforated diverticulitis, stable. Tolerated advance to GI soft diet. Hgb 8.1 (7.9 after 1 u prbc's, 6.8) Cardiology has seen Pt, appreciate input. ABX to complete on 03/04. Triple lumen d/c'd 03/03, midline placed for access. had small amount of melena from rectal stump again aong with flatus. Continues with melena from ostomy Plan: await GI workup, OOB to chair-Ambulate with assist. Ostomy training. PT/OT. continue current management. D/C ABX tomorrow d/w Dr Lozoya
--- NOTE | 2020-03-03 11:35 | PN ---
Subjective Date of Service: 03/03/20 Interval History: Patient is feeling OK today except for new pain with movement in his left ribs. Patient states this is new onset and is not worse with breathing. Patient has no abdominal pain at rest, but moderate/severe pain at rest. Patient denies SOB , F/C, N/V, or other pain. Family History: Unchanged from Admission Social History: Unchanged from Admission Past Medical History: Unchanged from Admission Objective Active Medications: Guaifenesin (Mucinex*) 600 mg PO BID [facility] Last Admin: 03/03/20 08:31 Dose: 600 mg Heparin Sodium (Porcine) (Heparin Flush Picc/Ml/Cvc(*)) 1 ml FLUSH 0600,1800 [facility]; Protocol Last Admin: 03/03/20 06:05 Dose: 1 ml Hydromorphone HCl (Dilaudid Inj*) 0.5 mg IV SLOW PU Q4H PRN PRN Reason: PAIN - SEVERE Last Admin: 03/01/20 15:03 Dose: 0.5 mg Piperacillin Sod/Tazobactam (Sod 3.375 gm/ Sodium Chloride) 100 mls @ 25 mls/ hr IVPB Q8H [facility] Last Admin: 03/03/20 08:26 Dose: 25 mls/hr Metoprolol Tartrate (Lopressor Tab*) 25 mg PO Q12HR [facility] Last Admin: 03/03/20 08:31 Dose: 25 mg Ondansetron HCl (Zofran Inj*) 4 mg IV Q6H PRN PRN Reason: NAUSEA Last Admin: 02/28/20 18:14 Dose: 4 mg Oxycodone/Acetaminophen (Percocet 5/325 Tab*) 1 tab PO Q4H PRN PRN Reason: PAIN Last Admin: 03/03/20 08:31 Dose: 1 tab Pantoprazole Sodium (Protonix Iv*) 40 mg IV Q24H [facility] Last Admin: 03/03/20 09:23 Dose: 40 mg Pharmacy Consult (Zosyn Per Pharmacy*) 1 note FOLLOW UP .ZOSYN PER PHARMACY [facility] Vital Signs - 8 hr 03/03/20 03/03/20 03/03/20 03:50 08:00 08:31 Temperature 97.4 F 98.9 F Pulse Rate 62 70 Respiratory 20 20 20 Rate Blood Pressure 126/45 122/47 (mmHg) O2 Sat by Pulse 98 97 Oximetry Oxygen Devices in Use Now: None Appearance: Patient is an 89yo male who appears stated age and is sitting in the bed in NAD. Eyes: No Scleral Icterus, PERRLA Ears/Nose/Mouth/Throat: NL Teeth, Lips, Gums, Clear Oropharnyx, Mucous Membranes Moist Neck: NL Appearance and Movements; NL JVP, Trachea Midline Respiratory: Symmetrical Chest Expansion and Respiratory Effort, Clear to Auscultation Cardiovascular: NL Sounds; No Murmurs; No JVD, - - 1+ Generalized edema. Abdominal: - - Normoactive BS, Midline Incision, RADHA drain, Lymphatic: No Cervical Adenopathy Extremities: No Clubbing, Cyanosis Skin: No Nodules or Sclerosis Neurological: Alert and Oriented x 3, - - Generalized weakness, CN II-XII intact. Result Diagrams: 03/03/20 06:00 03/03/20 06:00 Additional Lab and Data: Lab Results Microbiology and Other Data: Microbiology 02/25/20 11:46 Gram Stain - Final Misc Source (See Comment) - Peritoneal Wound Culture - Preliminary Streptococcus Anginosus 02/25/20 11:46 Anaerobic Culture - Preliminary Body Fluid Bacteroides Thetaiotaomicron Clostridium Clostridiiforme 02/25/20 06:21 Stool Occult Blood (DANNY) - Final Stool Assess/Plan/Problems-Billing Assessment: Patient is an 89yo male with a PMH for Thallessemia, MARIELOS, recently diagnosed NICM and rhabdomyolysis of unclear cause, here with perforated bowel S/P Repair. Improving. - Patient Problems (1) Rupture of bowel Current Visit: Yes Status: Acute Code(s): K63.1 - PERFORATION OF INTESTINE ( NONTRAUMATIC) SNOMED Code(s): 277515836 Comment: - S/P Repair and Jose L's procedure on 02/24. - Needed Vasopressors Post-op for septic shock, now weaned off - NG tube Wound Vac, RADHA Drain removed, management per surgery. - Steroids possibly contributed to bowel friability and rupture - Possible underlying lesion intraop, Pathology shows benign LN and ruptured diverticulitis. - Continue Zosyn 02/24-03/04 - With Melena, concern for persistent upstream lesion and may need further GI evaluation. Hemoglobin stable. No intraoperative findings concerning for mass or ischemia. - Discussed with GI, reommends watchful waiting and scope if needed for conitnued melena or hemogolbin drop. (2) Cardiomyopathy Current Visit: Yes Status: Acute Code(s): I42.9 - CARDIOMYOPATHY, UNSPECIFIED SNOMED Code(s): 55754530 Comment: - Diagnosed in 01/2020 - Non-Obstructive Cath, Echo shows disproportionate hypertrophy to HTN - Unclear cause, Concern for dermatomyositis with myocardial involvement (Less likely due to normal MELLISSA and Anti-Jennifer, but not ruled out) - Was scheduled for further cardiac workup to help determine etiology. - Viral process possible, Negative tick borne and viral respiratory panel. - Trop persistently elevated. Trend - Frequent PVCs with runs of VT usually 8-12 beats. Repeat echo with improvement in EF to 40-45%. Appreciate Cardiology input, optimize electrolytes and increase BB. Possible frequent ectopy could be contributing to cardiomyopathy (3) Atrial fibrillation Current Visit: Yes Status: Acute Code(s): I48.91 - UNSPECIFIED ATRIAL FIBRILLATION SNOMED Code(s): 36935864 Comment: - New onset, unclear duration. - No anticoagulation at this time, decision will have to be made when surgery more remote and likely when melena resolved, tolerated Eliquis before. - Monitor Tele - Rate controlled on Metoprolol. Not in permanent Afib. 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 - Concern for chronic blood loss. Less likely due to 2 prior negative FOBT - CT scan shows possible small bowel lesion which would not have been seen on EGD or Colonoscopy - Transfuse to >7 S/P 4u PRBC - B12 normal (5) Rhabdomyolysis Current Visit: No Status: Acute Code(s): M62.82 - RHABDOMYOLYSIS SNOMED Code(s): 791922484 Comment: - Unclear cause, trending down (Got several doses of steroids outpatient) - Antecedent illness brings up possiblity of viral process (COVID negative) - Had myalgias and non-resolving facial rash, Dermatomyositis still possible - Trend CK, much lower than previously, but increase again today - Significant muscle weakness persistent (6) HTN (hypertension) Current Visit: No Status: Acute Code(s): I10 - ESSENTIAL (PRIMARY) HYPERTENSION SNOMED Code(s): 05847112 Comment: - Hold BP meds post-op except metoprolol - Normotensive (7) DVT prophylaxis Current Visit: No Status: Acute Code(s): XQJ3168 - SNOMED Code(s): 725556822 Comment: - SCDs in setting of anemia and melena Status and Disposition: Inpatient, Will likely need rehab at D/C.
--- NOTE | 2020-03-03 13:26 | PN ---
Progress Note - Progress Note Date of Service: 03/03/20 Note: Surgery Progress Note I saw and examined the patient this afternoon and reviewed vitals and new labs. He has been doing well. He tolerated a soft diet yesterday and today without difficulty. He has been able to ambulate more with 2 person assistance. His Hct remains stable although he continues to have melena. He remains afebrile. Cardiology's recommendations are greatly appreciated. Abx to stop tomorrow. Dispo will be pending PT recommendations and patient/family wishes. Postoperatively he is doing well, although the source of his GIB remains uncertain. Plan to consult GI formally if it persists.
[2020-03-04 06:06] LABS: Hematocrit 24 % (42-52); Hemoglobin 8.2 g/dL (14.0-18.0); Mean Corpuscular HGB Conc 34 g/dL (31-36); Mean Corpuscular Hemoglobin 28 pg (27-31); Mean Corpuscular Volume 83 fL (80-94); Mean Platelet Volume 8.9 fL (7.4-10.4); Platelet Count 220 10^3/uL (150-450); Red Blood Count 2.94 10^6 /uL (4.18-5.48); Red Cell Distribution Width 17 % (10-15); White Blood Count 6.9 10^3/uL (3.5-10.8)
[2020-03-04 06:23] LABS: BUN/Creatinine Ratio 23.9 (8-20); Calcium 6.6 mg/dL (8.6-10.3); EGFR African American 74.3 (>60); EGFR Non-African American 61.4 (>60); Magnesium 2.2 mg/dL (1.9-2.7); Potassium 3.7 mmol/L (3.5-5.0)
[2020-03-04 06:27] LABS: ABS Eosinophils 0.1 10^3/ul (0-0.6); ABS Lymphocytes 0.4 10^3/ul (1.0-4.8); ABS Monocytes 0.3 10^3/ul (0-0.8); ABS Neutrophils 6.1 10^3/ul (1.5-7.7); Eosinophil % 1.1 %; Lymphocyte % 6.2 %; Nucleated Red Blood Cells % 0.2; Polychromasia 1+
[2020-03-04 08:36] VITALS: BP 131/57
[2020-03-04] MEDS: Metoprolol Tartrate TAB* 25 MG PO SCH (08:49)
[2020-03-04] MEDS: guaiFENesin ER TAB 600 MG PO SCH (08:49)
[2020-03-04] MEDS: oxyCODONE/Acetamin 5/325 MG* TAB PO PRN (08:49)
[2020-03-04] MEDS: Pantoprazole IV* 40 MG IV SCH (08:50)
[2020-03-04] MEDS: ZOSYN 3.375 GM Q8H per EXTENDED INFUSION IVPB SCH ×2 (08:52)
--- NOTE | 2020-03-04 09:29 | PN ---
Progress Note - Progress Note Date of Service: 03/04/20 Note: S: Reports he is feeling well with less pain. 2 person assist ambulating without issue. Tolerating soft diet well and says he is having good appetite. No nausea, emesis, fever, chills, SOB, chest pain. Passing flatus through ostomy. O: Temp Pulse Resp BP Pulse Ox 97.9 F 77 18 131/57 98 03/04/20 08:35 03/04/20 08:35 03/04/20 08:49 03/04/20 08:35 03/04/20 08:35 Laboratory Last Values WBC 6.9 10^3/uL (3.5-10.8) 03/04/20 05:45 RBC 2.94 10^6 /uL (4.18-5.48) L 03/04/20 05:45 Hgb 8.2 g/dL (14.0-18.0) L 03/04/20 05:45 Hct 24 % (42-52) L 03/04/20 05:45 MCV 83 fL (80-94) 03/04/20 05:45 MCH 28 pg (27-31) 03/04/20 05:45 MCHC 34 g/dL (31-36) 03/04/20 05:45 RDW 17 % (10-15) H 03/04/20 05:45 Plt Count 220 10^3/uL (150-450) 03/04/20 05:45 MPV 8.9 fL (7.4-10.4) 03/04/20 05:45 Neut % (Auto) 87.4 % 03/04/20 05:45 Lymph % (Auto) 6.2 % 03/04/20 05:45 [place] % (Auto) 4.7 % 03/04/20 05:45 Eos % (Auto) 1.1 % 03/04/20 05:45 Baso % (Auto) 0.6 % 03/04/20 05:45 Absolute Neuts (auto) 6.1 10^3/ul (1.5-7.7) 03/04/20 05:45 Absolute Lymphs (auto) 0.4 10^3/ul (1.0-4.8) L 03/04/20 05:45 Absolute Monos (auto) 0.3 10^3/ul (0-0.8) 03/04/20 05:45 Absolute Eos (auto) 0.1 10^3/ul (0-0.6) 03/04/20 05:45 Absolute Basos (auto) 0.0 10^3/ul (0-0.2) 03/04/20 05:45 Absolute Nucleated RBC 0.0 10^3/ul 03/04/20 05:45 Immature Gran % 11.0 % (0-9) H 03/04/20 05:45 Neutrophils % 78.0 % 03/04/20 05:45 Band Neutrophils % 5.0 % (0-8) 03/04/20 05:45 Lymphocytes % 3.0 % 03/04/20 05:45 Reactive Lymphs % 1.0 % (0-6) 03/04/20 05:45 Monocytes % 1.0 % 03/04/20 05:45 Eosinophils % 6.0 % 03/04/20 05:45 Metamyelocytes % 1.0 % (0-2) 03/04/20 05:45 Myelocytes % 5.0 % (0-1) H 03/04/20 05:45 Nucleated RBC % 0.2 03/04/20 05:45 Nucleated RBCs/100 WBC 1.0 (0-0) H 03/02/20 06:00 Normal RBC Morphology Not Reportable 03/04/20 05:45 Polychromasia 1+ 03/04/20 05:45 Anisocytosis 1+ 03/03/20 06:00 Elliptocytes 1+ 03/02/20 06:00 INR (Anticoag Therapy) 1.20 (0.82-1.09) H 02/25/20 03:54 Sodium 145 mmol/L (135-145) 03/04/20 05:45 Potassium 3.7 mmol/L (3.5-5.0) 03/04/20 05:45 Chloride 119 mmol/L (101-111) H 03/04/20 05:45 Carbon Dioxide 22 mmol/L (22-32) 03/04/20 05:45 Anion Gap 4 mmol/L (2-11) 03/04/20 05:45 BUN 27 mg/dL (6-24) H 03/04/20 05:45 Creatinine 1.13 mg/dL (0.67-1.17) 03/04/20 05:45 Est GFR ( Amer) 74.3 (>60) 03/04/20 05:45 Est GFR (Non-Af Amer) 61.4 (>60) 03/04/20 05:45 BUN/Creatinine Ratio 23.9 (8-20) H 03/04/20 05:45 Glucose 93 mg/dL (70-100) 03/04/20 05:45 Lactic Acid 1.4 mmol/L (0.5-2.0) 02/25/20 15:50 Calcium 6.6 mg/dL (8.6-10.3) L 03/04/20 05:45 Phosphorus 3.1 mg/dL (2.5-5.0) 02/29/20 04:50 Magnesium 2.2 mg/dL (1.9-2.7) 03/04/20 05:45 Total Bilirubin 0.50 mg/dL (0.2-1.0) 03/03/20 06:00 AST 59 U/L (13-39) H 03/03/20 06:00 ALT 20 U/L (7-52) 03/03/20 06:00 Alkaline Phosphatase 56 U/L (34-104) 03/03/20 06:00 Total Creatine Kinase 328 U/L (10-223) H 03/04/20 05:45 Myoglobin 339.5 ng/mL (17.4-105.7) H 02/28/20 06:24 Troponin I 0.28 ng/mL (<0.03) H* 03/03/20 06:00 Total Protein 3.5 g/dL (6.4-8.9) L 03/03/20 06:00 Albumin 1.5 g/dL (3.2-5.2) L 03/03/20 06:00 Globulin 2.0 g/dL (2-4) 03/03/20 06:00 Albumin/Globulin Ratio 0.8 (1-3) L 03/03/20 06:00 Vitamin B12 775 pg/mL (180-914) 02/29/20 04:50 TSH 1.56 mcIU/mL (0.34-5.60) 02/25/20 03:54 Urine Color Yellow 02/28/20 07:50 Urine Appearance Cloudy 02/28/20 07:50 Urine pH 5.0 (5-9) 02/28/20 07:50 Ur Specific [place] 1.024 (1.010-1.030) 02/28/20 07:50 Urine Protein Negative (Negative) 02/28/20 07:50 Urine Ketones Negative (Negative) 02/28/20 07:50 Urine Blood 3+ (Negative) A 02/28/20 07:50 Urine Nitrate Negative (Negative) 02/28/20 07:50 Urine Bilirubin Negative (Negative) 02/28/20 07:50 Urine Urobilinogen Negative (Negative) 02/28/20 07:50 Ur Leukocyte Esterase Negative (Negative) 02/28/20 07:50 Urine WBC (Auto) 1+(6-10/hpf) (Absent) A 02/28/20 07:50 Urine RBC (Auto) 3+(>10/hpf) (Absent) A 02/28/20 07:50 Urine Bacteria Absent (Absent) 02/28/20 07:50 Urine Glucose Negative (Negative) 02/28/20 07:50 COVID-19 PCR Undetected (Undetected) 02/26/20 15:20 Blood Type O Positive 03/01/20 05:12 Antibody Screen Negative 03/01/20 05:12 Crossmatch See Detail 03/01/20 05:12 Intake and Output Last 24 Hours 03/02/20 03/03/20 03/04/20 03/05/20 06:59 06:59 06:59 06:59 Intake Total 0658 094 0951 Output Total 765 950 915 Balance 584 -590 182 Intake: IV Fluids 544 127 ABX - ZOSYN 405 110 Magnesium 52 NS (0.9%) 87 17 Oral 480 360 970 Packed Cells 325 Output: RADHA #1 340 400 240 Urine 225 400 600 Muniz 150 Colostomy 50 150 75 Other: Estimated Void Medium Medium Date of Last Bowel 03/03/2020 Movement # Bowel Movements 2 Estimated Stool Amount Small # Voids 1 1 1 PEX General: Alert, in NAD. Integumentary: No rashes or jaundice. HEENT: Oropharynx clear. PERRLA. Heart: RRR. Lungs: CTAB, no WRR. ABD: BS present. Soft, nondistended. Mild tenderness surrounding midline incision, which is C/D/I with petty in place. Ostomy with melenotic stool. RADHA with serous output. Extremities: Calves soft and nontender. Distal pulses intact BL. RADHA drain was removed and tolerated well by the patient. Assessment and plan: 89 yo M POD 8 from exploratory laparotomy, hartmanns procedure for perforated diverticulitis. Tolerating diet well, H&H improving. He is being discharged to [facility]. His petty will need to be removed next week.
--- NOTE | 2020-03-04 10:58 | PN ---
Progress Note - Progress Note Date of Service: 03/04/20 Note: Surgery Progress Note I examined patient and reviewed labs, etc today. I saw him down in PMRU this morning and discussed his discharge to rehab with Norberto Burrows, hospitalist, this morning. He is doing very well, now POD 8 from exploratory laparotomy and Hartmans procedure for perforated diverticulitis. He initially presented to ED for syncope and acute GIB (Hct drop from 37 to 25) and free air was noted incidentally on CT abdomen/pelvis. The patient has been doing well with physical therapy. He is tolerated a regular soft diet, his ostomy is functioning and his pain is very well controlled. On exam he is much more easily conversant with his hearing aid in. His abdomen is soft, minimally tender, non distended. Petty c/d/i. Ostomy appliance in place with persistent melena and air in the bag. Generalized edema has improved. Plan is to still obtain GI consultation regarding the possible source of his acute GIB, which is the primary complaint he presented with last week in the ED. His melena is persistent, although his Hct has remained stable. If he is still in PMRU we will plan to remove his petty this Sat or . On discharge he should follow up with me in 2 weeks for a telemedicine visit. Before discharge, his family should be able to come to RU unit for ostomy care teaching. I called and spoke to patient's daughter, Carmelita, to update her on his care and his follow up with me.
--- NOTE | 2020-03-04 13:58 | DS ---
CC: Dr. Serenity Martin; Dr. Oleg Oquendo; Dr. Vinod Bowen; Dr. Bernie Lozoya * DISCHARGE SUMMARY: DATE OF ADMISSION: 02/25/20 DATE OF DISCHARGE: 03/04/20 PRIMARY CARE PROVIDER: Dr. Serenity Martin. TINSMITH APPRENTICE: Dr. Oleg Oquendo. SOFTWARE SYSTEMS ARCHITECT: Dr. Vinod Bowen. CONSULTING GENERAL SURGEON: Dr. Bernie Lozoya. MY ATTENDING WHILE IN THE HOSPITAL: Dr. Dulce Andrews.* (DICTATED BY ROSA KLINE) PRIMARY DISCHARGE DIAGNOSES: 1. Ruptured diverticulitis complicated by septic shock. 2. Postoperative atrial fibrillation. 3. Acute on chronic kidney disease, improved. 4. Nonsustained ventricular tachycardia. 5. Acute blood loss anemia. 6. Elevated troponin. SECONDARY DISCHARGE DIAGNOSES: 1. History of nonischemic cardiomyopathy. 2. Recent history of rhabdomyolysis, unclear cause. 3. Hypertension. 4. Benign prostatic hypertrophy. 5. Reflux. 6. Fatty liver disease. 7. History of thalassemia. 8. History of iron deficiency anemia. 9. Chronic back pain. 10. Gout. 11. Pulmonary nodule. STUDIES DONE WHILE IN THE HOSPITAL: Chest x-ray from 02/22/20 read as persistent patchy atelectasis versus consolidation in right lung base. Electrocardiogram shows sinus tachycardia plus frequent PVCs, PACs versus multifocal atrial tachycardia versus atrial fibrillation. Repeat EKG shows multifocal atrial tachycardia with PVCs. Repeat EKG shows atrial fibrillation versus sinus tachycardia versus multifocal atrial tachycardia with frequent PVCs. Repeat EKG from 03/02/20 shows normal sinus rhythm with right bundle-branch block, rate is 76, QTc 456. Single PVC. Chest, abdomen, pelvis CT from 02/25/20 read as generalized ascending and descending sigmoid colon probable sigmoid perforation is annotated. There is more generalized small bowel hyperemia and thickening recommending correlation with serum lactate to assess for ischemic process. Pneumoperitoneum with small amount of ascites, small bilateral pleural effusions, diverticulosis, cardiomegaly, and potential 8 cm pulmonary nodule along the right minor fissure , repeat chest CT in 6 to 12 months. Surgical specimen read as mesentery showing benign fibroadipose tissue with chronic inflammation. Mesentery lymph node, benign fibroadipose tissue with fat necrosis, mesentery lymph node shows lymphoid tissue with fibrosis. Colon shows acute diverticulosis perforation, pericolic abscess formation, chronic diverticulosis, chronic inflammation, pericolonic fat with fat necrosis, no evidence of neoplasia, 8 lymph nodes with no tumor seen. Chest x-ray from 02/25/20 read as cardiomegaly, endotracheal tube 4 cm above the byron, right IJ at the cavoatrial junction. Transthoracic echocardiogram shows EF 40% to 45%, severe hypo and akinesis at the base of the posterior wall extending into the septum and inferior wall with Doppler parameters consistent with abnormal left ventricular relaxation, grade 1 diastolic dysfunction, wall thickness mildly increased, wall thickness of right ventricle is mildly increased, systolic function is normal, mild regurgitation with mitral or tricuspid and valve, mildly dilated ascending aorta , left-sided pleural effusion, pulmonary artery systolic pressure 38 mmHg from previous study EF improved, full code area of hypokinesis previously noted, improvement in diastolic dysfunction, improvement in aortic insufficiency, improvement of pulmonary artery pressure. MEDICATIONS AT DISCHARGE: 1. Torsemide 10 mg p.o. daily. 2. Potassium chloride 20 mEq p.o. daily. 3. Guaifenesin 700 mg p.o. b.i.d. 4. Metoprolol tartrate 25 mg p.o. q.12 hours. 5. Percocet 1 tab p.o. q.4 hours as needed. 6. Pantoprazole 40 mg p.o. daily. 7. Amoxicillin 2000 mg p.o. as needed for dental procedure. New medications at discharge: 1. Guaifenesin. 2. Metoprolol. 3. Percocet. 4. Pantoprazole. Medications discontinued at discharge: 1. Hydrochlorothiazide 12.5 mg p.o. daily. 2. Finasteride 5 mg p.o. daily. 3. Doxazosin 4 mg p.o. at bedtime. 4. Metoprolol succinate 12.5 mg p.o. daily. 5. Tramadol 50 mg p.o. q.6 hours as needed. 6. Aspirin 81 mg p.o. daily. 7. Prednisone 20 mg p.o. daily. HOSPITAL COURSE: This is a brief summary of the patient's presentation. For more details, please see the history and physical from Dr. Bernie Lozoya on . In brief, the patient is an 89-year-old male with past medical history significant for the above, who had recently been hospitalized with elevated creatine kinase level up to nearly 5000 of unclear etiology with a preceding viral illness, who was being evaluated for rheumatologic condition, who was discharged on 20 mg of prednisone. One week before his admission, the patient had minor abdominal symptoms. His previous admission with no signs of peritonitis. The patient had syncope and was sent in from his ad operations coordinator's office to the emergency department and was found to have a perforated viscus with pneumoperitoneum as above. The patient was found to be in septic shock with a lactic acid of 4.9. The patient was never hypotensive, but at one point needed to be started on vasopressin agents postoperatively. The patient was intubated for his surgery and was difficult to extubate. Postoperatively, the patient had intraoperative findings showing ruptured diverticulitis that appeared somewhat chronic as well as several enlarged mesenteric lymph nodes, which were found to be benign as above. For more details, please see operative report from Dr. Bernie Lozoya. Mesentery of small bowels noted to be thickened and bulbous. The patient was able to be extubated on 02/26/20. The patient was initially found to be in AFib with RVR. Cardiology was consulted and cardioversion I believe was not to be indicated, the patient was initially on an amiodarone drip, but was then transitioned to his home metoprolol, which was very successful initially in rate controlling and then apparently rhythm controlling his AFib. The patient initially had an elevated creatinine that normalized slowly. The patient tested negative for COVID-19 while in the hospital and given that is relatively low residual probability, the patient was taken off the precautions. The patient was started on Zosyn in the emergency department, this was maintained for 10 to 12 days while in the hospital. The patient was initially very anemic of unclear etiology, but with a very elevated BUN and creatinine ratio likely this was related to GI bleeding possibly of the small bowel given above findings on CT of the abdomen indicating possible ischemia in conjunction with severely elevated lactic acid. The patient had a colostomy placed, which took several days to begin putting out stool and when it did, the stool was mainly dark and melanotic, however, the patient's hemoglobin stabilized beginning on 02/28/20. The patient was transfused 1 unit on 03/01/20 and the patient's hemoglobin began to spontaneously improve more after that. The patient had an elevated troponin during his hospitalization. The patient never had troponin checked before and his troponin peaked at 0.45 and then trended down slowly, however, it did not seem to normalize at a rate that may be expected given his renal function. The patient also had CK levels checked while in the hospital, which were decreased from his previous highs, but also did not normalize. The patient was found to be very weak and in need of significant physical therapy services. The patient's case was discussed with Dr. Schroeder of Gastroenterology, given his melena and given the patient had recently had endoscopy showing no lesions in that his lab work was improving with regards to his anemia, watchful waiting was recommended and no invasive intervention or diagnostics were recommended at this time. The patient was accepted to bed on PMRU on 03/04/20 and was stable and amenable for discharge on that day, which was the last day of his antibiotics. PHYSICAL EXAMINATION ON THE DAY OF DISCHARGE: General: The patient is an 89- year- old male, who appears stated age and sitting in the bed, in no acute distress. Vital Signs: At the time of evaluation, temperature 98.0, pulse rate 73, respiratory rate 20, oxygen saturation 100% on room air, blood pressure 145/ 57. HEENT: Head normocephalic, atraumatic. Sclerae anicteric. No conjunctival injection. Nasal mucosa moist. Oral mucosa moist. No pharyngeal erythema, discharge, or exudate. Neck: Supple, nontender. No lymphadenopathy. No carotid bruits. No JVD. Cardiac: Regular rate and rhythm. No clicks, murmurs, gallops, or rubs. Pulses are 2+ in the bilateral dorsalis pedis, posterior tibialis, and radial areas. 1+ generalized edema. Respiratory: Some rhonchi heard in the right lung, improved with deep breathing. No other adventitious lung sounds. Good aeration bilaterally. Abdomen: Soft. Tender to palpation in the right lower quadrant, colostomy placed draining dark possibly melenic stool. Genitourinary: No suprapubic or CVA tenderness. Skin: Rash persistent on the face with red to purple patches on the face and cheeks as well as the upper eyelids. Neuro: Cranial nerves II through XII intact. No focal deficits. Alert and oriented x3. Hard of hearing. Psychiatric: Pleasant and cooperative. DISCHARGE PLAN BY PROBLEM: 1. Ruptured diverticulitis, septic shock, acute kidney injury, resolved. The patient had requested for surgical intervention with excision of ruptured diverticulitis and the creation of a colostomy, this seemed to be functioning well and will be followed by general surgery. The patient had septic shock on admission from the intraabdominal infection, but has had 10 days of Zosyn now, which we discontinued today, 03/04/20. The patient has no further signs of infection. The patient currently has a RADHA drain, which is having minimal output and we will likely be removed soon through via surgery. The patient is tolerating a soft diet, fluids, and intake should be encouraged high-calorie foods. The patient had pain control with Percocet. The patient was quite debilitated from his surgery and we will have occupational and physical therapy. 2. Melena. The patient's melena seems to be persistent, however, his hemoglobin is going up independently of transfusion and his BUN and creatinine ratio, which was initially very elevated, is trending down consistent with the removal of digestive blood from the GI tract, the most likely cause of this at this time seems to be small bowel ischemia related to septic shock on his admission. There is a possibility of underlying GI malignancy, however, the patient was previously on Eliquis and did not show signs of severe GI bleeding. The patient recently had an EGD with Dr. Julien Sheikh and the stool occult blood both of which were negative. If the patient shows signs of recurrent bleeding or has continued melena beyond that time when it will be expected to have resolved given the above high positive tagged red blood cells scan, repeat abdominal imaging or endoscopy with GI consult should be considered. The patient should have short interval repeat iron testing and treatment with oral or IV iron due to the patient's infection and GI bleeding, the patient will not be started on these at this time. 3. Postoperative atrial fibrillation, this appears have been provoked by septic and pressor use. The patient has been having decreased frequency of atrial fibrillation on his telemetry monitoring. The patient's metoprolol was recently increased. The patient is currently in sinus rhythm. The patient is not on anticoagulation, however, the patient should follow up closely with Cardiology after his melena has resolved to discuss the possible need for anticoagulation and this may be difficult given the patient's chronic iron deficiency and thalassemia. 4. Elevated creatine kinase and troponin. The patient's elevated creatine kinase and troponin may be related to his acute illness or a viral process that is present in January of this year and is just resolving now, however, this may also be related to underlying inflammatory process. The patient was previously seen in consultation by Dr. Vinod Bowen. The patient should follow up closely with Dr. Bowen and should have at that time repeat creatine kinase and troponin level as well inflammatory markers once the confounding factor of the patient's ruptured diverticulitis is removed. The patient is not a candidate for steroids at this time given his recent abdominal surgery and need for healing of his ostomy. If the patient's rehab is significantly hampered by his preexisting muscle weakness, consultation to Rheumatology to discuss the possible benefits and drawbacks of steroid therapy in the short- term should be considered. 5. Nonsustained ventricular tachycardia. The patient has known frequent ectopy. The patient is still showing ectopy on telemetry, however, the patient had not had any sustained ventricular tachycardia. The patient's metoprolol has been increased as was discussed with Cardiology, but they were not indicated at this time. The patient may also be a candidate for primary prevention ICD, however, given his improving ejection fraction, this would likely not be a good idea at this time. 6. Heart failure, reduced ejection fraction. The patient has atypical findings on his echocardiogram and nonischemic cardiomyopathy. The patient's EF is low at 30% to 35%, however, appears to be rebounding at this point. Most recent echocardiogram showing EF of 40% to 45%, this should be followed serially. The patient is on metoprolol. The patient is not on lisinopril. The patient was started on Entresto, but appeared to have a poor reaction to this. DONY and ARB should be considered to be restarted outpatient through his primary ad operations coordinator as might Entresto or spironolactone. Continue the patient' s torsemide, he looks fluid overload at this time and his hypernatremia has resolved. 7. BPH. Hold the patient's BPH meds at this time. I have concern for orthostatic hypotension. This may be resumed if the patient begins to have lower urinary tract symptoms. DISPOSITION: PMRU. CONDITION: Stable. TIME SPENT: Approximately 60 minutes was spent on discharge of this patient, 30 of which was spent [id number] with the patient obtaining history and physical and discussing treatment plan. ROSA KLINE [id number]/[facility] #: [id number] [place]ACH[place]
[2020-03-05] MEDS ORDERED: Pantoprazole TAB * 40 MG TAB PO SCH (09:00)
== END 2020-03-04 10:15 | DRG 853 ==
LOC: ED 03:00 → AA 09:57 → ICU 15:06 → MED 02-27 13:54 → ICU 02-29 07:49 → SSU 02-29 16:36
PROVIDERS: ADMIT Surgery; ATTEND Hospitalist
PROC: 0D1M0Z4 Bypass Descending Colon to Cutaneous, Open Approach (ICD-10-PCS; 2020-02-25)
PROC: 0DBV0ZX Excision of Mesentery, Open Approach, Diagnostic (ICD-10-PCS; 2020-02-25)
PROC: 07BB0ZX Excision of Mesenteric Lymphatic, Open Approach, Diagnostic (ICD-10-PCS; 2020-02-25)
PROC: 05HM33Z Insertion of Infusion Device into Right Internal Jugular Vein, Percutaneous Approach (ICD-10-PCS; 2020-02-25)
PROC: 3E033XZ Introduction of Vasopressor into Peripheral Vein, Percutaneous Approach (ICD-10-PCS; 2020-02-25)
PROC: 0BH17EZ Insertion of Endotracheal Airway into Trachea, Via Natural or Artificial Opening (ICD-10-PCS; 2020-02-25)
PROC: 5A1945Z Respiratory Ventilation, 24-96 Consecutive Hours (ICD-10-PCS; 2020-02-25)
PROC: 30233N1 Transfusion of Nonautologous Red Blood Cells into Peripheral Vein, Percutaneous Approach (ICD-10-PCS; 2020-02-25)
PROC: 0DBN0ZZ Excision of Sigmoid Colon, Open Approach (ICD-10-PCS; principal; 2020-02-25 09:30)
DX: A41.9 Sepsis, unspecified organism (principal); R65.21 Severe sepsis with septic shock; K57.20 Diverticulitis of large intestine with perforation and abscess without bleeding; N17.9 Acute kidney failure, unspecified; M62.82 Rhabdomyolysis; I47.2 Ventricular tachycardia; D62 Acute posthemorrhagic anemia; I42.8 Other cardiomyopathies; K21.9 Gastro-esophageal reflux disease without esophagitis; N40.0 Benign prostatic hyperplasia without lower urinary tract symptoms; M19.90 Unspecified osteoarthritis, unspecified site; M17.11 Unilateral primary osteoarthritis, right knee; H91.90 Unspecified hearing loss, unspecified ear; Z96.641 Presence of right artificial hip joint; M10.9 Gout, unspecified; D56.3 Thalassemia minor; K76.0 Fatty (change of) liver, not elsewhere classified; N18.9 Chronic kidney disease, unspecified; G89.29 Other chronic pain; M54.9 Dorsalgia, unspecified; I48.0 Paroxysmal atrial fibrillation; I27.20 Pulmonary hypertension, unspecified; I45.10 Unspecified right bundle-branch block; R79.89 Other specified abnormal findings of blood chemistry; I12.9 Hypertensive chronic kidney disease with stage 1 through stage 4 chronic kidney disease, or unspecified chronic kidney disease; R91.1 Solitary pulmonary nodule; Z88.8 Allergy status to other drugs, medicaments and biological substances; Z91.030 Bee allergy status; Z85.828 Personal history of other malignant neoplasm of skin; Z97.4 Presence of external hearing-aid
CPT/HCPCS: 36415; 71045; 71260; 74177; 80048; 80053; 81003; 81015; 82270; 82272; 82550; 82607; 83605; 83735; 83874; 84100; 84443; 84484; 85014; 85018; 85025; 85027; 85610; 86850; 86900; 86901; 86922; 87070; 87073; 87076; 87077; 87086; 87185; 87186; 87205; 87635; 88305; 88307; 88331; 93005; 93306; 96365; 99285; A9270-GY; A9272-GY; C1751; C1776; J0282; J0330; J0610; J0690; J1160; J1170; J1940; J2250; J2405; J2543; J2704; J3010; J3475; J3480; J3490; P9040; Q9967

== ENCOUNTER 2020-03-04 09:36 | Inpatient (IN) | payer MEDICARE, BC ==
--- OUTSIDE RECORDS SUMMARY | 2020-03-04 10:25 | XMS REPORT ---
:1930 Author Organization [facility] Care Team Providers Name Role Phone Unavailable Unavailable Unavailable Problems Condition Condition Condition Status Onset Resolution Last Treating Comments Name Details Category Date Date Treatment Clinician Date Laceration Laceration Diagnosis Active Brianna of sigmoid of sigmoid 03-03 Wendela colon, colon, [id number] initial initial encounter encounter Allergies, Adverse Reactions, Alerts Allergy Allergy Status Severity Reaction(s) Onset Inactive Treating Comments Name Type Date Date Clinician Novocain Unknown Active Unknown Reaction 2016-11 Sarah Zhao Unknown -22 Kyle [id number] Medications Ordered Filled Start Stop Current Ordering Indication Dosage Frequency Signature Comments Components Medication Medication Date Date Medication? Clinician (SIG) Name Name No Known No Known No None None None Medications Medications For This For This Patient Patient Procedures This patient has no known procedures. Results This patient has no known results.
--- OUTSIDE RECORDS SUMMARY | 2020-03-04 10:26 | XMS REPORT | Continuity of Care Document ---
:1930 External Reference #:[id number] Author Name Vinod Bowen M.D. (transmitted by agent of provider Jenny Oliver) Address [address] [place] [address] Care Team Providers Name Role Phone [facility] Care Team Information Mobile Ui/Ux Designer [phone] [place] - Physical Therapist Serenity Martin MD - Internal Care Team Information Mobile Ui/Ux Designer Medicine Bao Rodney MD - Cardiovascular Care Team Information Mobile Ui/Ux Designer [phone] Disease Julien Sheikh MD - Gastroenterology Care Team Information Mobile Ui/Ux Designer Problems Active Problems Provider Date Edema of [...] Comments Sex Unknown Tobacco Use Start: Unknown Never Smoked Cigarettes Smoking Status Reviewed: 02/24/20 Never Smoked Cigarettes ETOH Use Never used alcohol Tobacco Use Start: Unknown Patient has never smoked Recreational Drug Use Denies Drug Use Recreational Drug Use 1 alcoholic drink per (Hasn't had a drink week in 2months or more 02/24/20) Exercise Type/Frequency Exercises sporadically Allergies, Adverse Reactions, Alerts Active Allergies Reaction Severity Comments Date Novocain Hives 01/15/2014 Honey Bee Venom Rash & Itching 01/18/2020 Medications Active Medications SIG Qnty Indications Ordering Date Provider Torsemide 1 by mouth as 45tabs Bao Piedra 02/24/2020 10mg Tablets needed. Kelsey Rodney Klor-Con 1 unit by mouth 30units Bao Piedra 02/24/2020 20Meq Packet every day Kelsey Rodney Tramadol HCL 1-2 tablets by 42tabs Serenity [...] every day Kelsey Martin Tablets ER 24HR Finasteride 1 by mouth Esteban Gilliland, 5mg Tablets every day Hydrochlorothiazide Take 1 Capsule 90caps Serenity 12.5mg Daily Kelsey Martin Capsules History Medications Entresto take 1 tab by [...] Technetium TC 99M Golden Champagne, DO [facility] 04/20/2019 Tetrofosmin, Per Unit Dose Up To 40 Millicuries Injection Technetium TC 99M Golden Champagne, DO [facility] 04/20/2019 Tetrofosmin, Per Unit Dose [...] CPT Code Status Date Vaccine Lot # [id number] Given 09/25/2019 Influenza Virus Vaccine, Quadrivalent, Split, Preservative Free 17153 Given 09/24/2018 Influenza Virus Vaccine, Quadrivalent, Split, Preservative Free 44215 Given 09/23/2017 Influenza Virus Vaccine, Quadrivalent, Split, [id number] Preservative Free 45135 Given 09/23/2017 Pneumococcal Conjugate Vaccine 13 Valent For [id number] Intramuscular Use Vital Signs Date Vital Result Comment 02/24/2020 3:07pm Height 69 inches 5'9" Weight 192.25 lb with slippers Heart Rate 60 /min right radial BP Systolic Sitting 126 mmHg Rue, reg cuff BP Diastolic Sitting 64 mmHg Rue, reg cuff BMI (Body Mass Index) 28.4 kg/m2 Ejection Fraction 30%-35% echocardiogram 01/12/20 02/08/2020 8:43am Height 69 inches 5'9" Weight 177.00 lb Heart Rate 84 /min BP Systolic 102 mmHg BP Diastolic 57 mmHg Body Temperature 97.7 F O2 % BldC Oximetry 95 % BMI (Body Mass Index) 26.1 kg/m2 Results Test Acquired Facility Test Result H/L Range Note Date Stool Occult 02/25/2020 [facility] Stool SEE RESULT 1 Blood, Screen [address] [place] [address] Blood, [phone] Screen Inr/Protime 02/25/2020 [facility] Inr 1.20 High 0.82-1.[address] [place] [address] [phone] Laboratory 02/25/2020 [facility] Lactic Acid 4.9 mmol/L Critical 0.5-2.0 [address] [place] [address] [phone] Type & Screen 02/25/2020 [facility] Patient O Positive [address] [place] [address] [phone] Antibody Screen NEGATIVE Comp Metabolic 02/25/2020 [facility] Sodium 136 mmol/L Normal 135-[address] [place] [address] [phone] Potassium 4.3 mmol/L Normal 3.5-5.0 Chloride 107 mmol/L Normal 101-111 Co2 Carbon Dioxide 20 mmol/L Low 22-32 Anion Gap 9 mmol/L Normal 2-11 Glucose 126 mg/dL High 70-100 Blood Urea Nitrogen 70 mg/dL High 6-24 Creatinine 1.52 mg/dL High 0.67-1.17 BUN/Creatinine Ratio 46.1 High 8-20 Calcium 6.7 mg/dL Low 8.6-10.3 Total Protein 3.7 g/dL Low 6.4-8.9 Albumin 1.7 g/dL Low 3.2-5.2 Globulin 2.0 g/dL Normal 2-4 Albumin/Globulin Ratio 0.9 Low 1-3 Total Bilirubin 0.40 mg/dL Normal 0.2-1.0 Alkaline Phosphatase 53 U/L Normal 34-104 Alt 44 U/L Normal 7-52 Ast 88 U/L High 13-39 Egfr Non- 43.6 >60 Egfr 52.8 >60 4 Laboratory test 02/25/2020 [facility] Magnesium 1.9 mg/dL Normal 1.9-2.[address] [place], [place] [address] [phone] Troponin-I (TnI) 0.26 ng/mL Critical high <0.03 5 TSH (Thyroid Stim Horm) 1.56 mcIU/mL Normal 0.34-5.60 CBC Auto 02/25/2020 [facility] White Blood 12.3 10^3/uL High 3.5-10.[address] [place] [address] [phone] Red Blood Count 3.13 10^6/uL Low 4.18-5.48 Hemoglobin 8.0 g/dL Low 14.0-18.0 Hematocrit 25 % Low 42-52 Mean Corpuscular Volume 80 fL Normal 80-94 Mean Corpuscular Hemoglobin 26 pg Low 27-31 Mean Corpuscular HGB Conc 32 g/dL Normal 31-36 Red Cell Distribution Width 16 % High 10-15 Platelet Count 185 10^3/uL Normal 150-450 Mean Platelet Volume 9.3 fL Normal 7.4-10.4 Abs Neutrophils 11.3 10^3/uL High 1.5-7.7 Abs Lymphocytes 0.2 10^3/uL Low 1.0-4.8 Abs Monocytes 0.7 10^3/uL Normal 0-0.8 Abs Eosinophils 0.0 10^3/uL Normal 0-0.6 Abs Basophils 0.0 10^3/uL Normal 0-0.2 Abs Nucleated RBC 0.0 10^3/uL Granulocyte % 92.2 % Lymphocyte % 1.9 % Monocyte % 5.6 % Eosinophil % 0.1 % Basophil % 0.2 % Nucleated Red Blood Cells % 0.1 Laboratory test 02/25/2020 [facility] Packed Cells SEE RESULTS [address] BELO <[place] [address] NOTE> [phone] Laboratory test 02/12/2020 [facility] C Reactive 22.69 mg/L High <8.[address] [place] [address] [phone] Creatine Kinase(CK) 3086 U/L High 10-223 Erythrocyte Sed Rate 19 mm/Hr Normal 0-19 Ferritin > 1500.0 ng/mL High 24-336 7 Urinalysis Profile 02/12/2020 [facility] Urine Color Yellow [address] [place], [place] [address] [phone] Urine Appearance Clear Urine Specific [place] 1.020 Normal 1.010-1.030 Urine pH 6 Normal 5-9 Urine Urobilinogen Negative Negative Urine Ketones Negative Negative Urine Protein 1+(30 mg/dL) Abnormal Negative Urine Leukocytes Negative Negative Urine Blood Negative Negative Urine Nitrite Negative Negative Urine Bilirubin Negative Negative Urine Glucose Negative Negative CBC Auto 02/12/2020 [facility] White Blood 5.2 10^3/uL Normal 3.5-10.[address] [place] [address] [phone] Red Blood Count 5.52 10^6/uL High 4.18-5.48 [...] % Nucleated Red Blood Cells % 0.1 Comp Metabolic 02/12/2020 [facility] Sodium 138 mmol/L Normal 135-[address] [place] [address] [phone] Potassium 3.6 mmol/L Normal 3.5-5.0 Chloride 104 [...] U/L High 7-52 Ast 205 U/L High 39 Egfr Non- 63.3 >60 Egfr 76.6 >60 8 Lipid Profile 02/12/2020 [facility] Triglycerides 128 mg/dL 9 (Trig/Chol/HDL) [address] [place] [address] [phone] Cholesterol 169 mg/dL 10 HDL Cholesterol 57.9 mg/dL 11 LDL Cholesterol 86 mg/dL 12 Laboratory test 02/12/2020 [facility] Creatine 3114 U/L High 10-[address] Kinase(CK) [place] [address] [phone] Comp Metabolic 02/12/2020 [facility] Sodium 137 Normal 135- [address] mmol/[place] [address] [phone] Potassium 3.4 mmol/L Low 3.5-5.0 Chloride 106 [...] U/L High 7-52 Ast 191 U/L High 39 Egfr Non- 64.0 >60 Egfr 77.4 >60 13 Influenza A & B 02/08/2020 [facility] Flu AB Disclaimer (SEE NOTE) [address] [place] [address] [phone] Influenza A Molecular Negative Negative Influenza B Molecular Negative Negative 15 Laboratory test 02/08/2020 [facility] C Reactive 12.59 mg/L High <8.[address] [place] [address] [phone] Erythrocyte Sed Rate 12 mm/Hr Normal 0-19 TSH (Thyroid Stim Horm) 1.88 mcIU/mL Normal 0.34-5.60 Comp Metabolic Panel 02/08/2020 [facility] Sodium 134 mmol/L Low 135-[address] [place] [address] [phone] Potassium 4.0 mmol/L Normal 3.5-5.0 Chloride 101 [...] Egfr Non- 65.4 >60 Egfr 79.1 >60 16 Laboratory test 02/08/2020 [facility] Creatine 2680 U/L High 10-[address] Kinase(CK) [place] [address] [phone] CBC Auto Diff 02/08/2020 [facility] White Blood 5.5 Normal 3.5 -10.[address] Count 10^3/[place] [address] [phone] Red Blood Count 5.31 10^6/uL Normal 4.18-5.48 [...] Blood Cells % 0.1 Basic Metabolic 01/28/2020 [facility] Sodium 133 mmol/L Low 135-[address] [place] [address] [phone] Chloride 101 mmol/L Normal 101-111 Co2 Carbon Dioxide 28 mmol/L Normal 22-32 Glucose 81 mg/dL Normal 70-100 Blood Urea Nitrogen 17 mg/dL Normal 6-24 Creatinine 1.03 mg/dL Normal 0.67-1.17 BUN/Creatinine Ratio 16.5 Normal 8-20 Calcium 8.2 mg/dL Low 8.6-10.3 Egfr Non- 68.3 >60 Egfr 82.7 >60 17 Potassium 4.2 mmol/L Normal 3.5-5.0 Anion Gap 4 mmol/L Normal 2-11 Cath Panel 01/25/2020 [facility] Partial 28.1 seconds Normal 26.0-38.[address] [place] [address] PTT [phone] CBC Auto 01/25/2020 [facility] White Blood 4.3 10^3/uL Normal 3.5-10.[address] [place] [address] [phone] Red Blood Count 5.07 10^6/uL Normal 4.18-5.48 [...] Red Blood Cells % 0.0 Inr/Protime 01/25/2020 [facility] Inr 0.99 Normal 0.82-1.[address] [place] [address] [phone] Basic Metabolic 01/25/2020 [facility] Sodium 134 mmol/L Low 135-[address] [place] [address] [phone] Potassium 4.0 mmol/L Normal 3.5-5.0 Chloride 101 mmol/L Normal 101-111 Co2 Carbon Dioxide 27 mmol/L Normal 22-32 Anion Gap 6 mmol/L Normal 2-11 Glucose 104 mg/dL High 70-100 Blood Urea Nitrogen 26 mg/dL High 6-24 Creatinine 1.21 mg/dL High 0.67-1.17 BUN/Creatinine Ratio 21.5 High 8-20 Calcium 8.0 mg/dL Low 8.6-10.3 Egfr Non- 56.7 >60 Egfr 68.6 >60 19 Laboratory test 01/19/2020 [facility] Clotest SEE RESULT [address] [place] [address] [phone] Stool Occult 01/19/2020 [facility] Stool Occult SEE RESULT 21 Blood Diag [address] Blood, [place] [address] [phone] CBC No Diff 01/19/2020 [facility] White Blood 5.3 10^3/uL Normal 3.5-[address] Count 0.8 [place] [address] [phone] Red Blood Count 4.93 10^6/uL Normal 4.18-5.48 Hemoglobin 12.5 g/dL Low 14.0-18.0 Hematocrit 38 % Low 42-52 Mean Corpuscular Volume 78 fL Low 80-94 Mean Corpuscular Hemoglobin 25 pg Low 27-31 Mean Corpuscular HGB Conc 33 g/dL Normal 31-36 Red Cell Distribution Width 15 % Normal 10-15 Platelet Count 157 10^3/uL Normal 150-450 Mean Platelet Volume 9.0 fL Normal 7.4-10.4 Laboratory test 01/19/2020 [facility] B-Type 361 pg/mL High <= [address] [place] [address] Peptide BNP [phone] Comp Metabolic 01/19/2020 [facility] Sodium 135 Normal 135- [address] mmol/[place] [address] [phone] Potassium 3.9 mmol/L Normal 3.5-5.0 Chloride 101 [...] Egfr Non- 61.4 >60 Egfr 74.3 >60 22 Iron & Iron Binding 01/19/2020 [facility] Iron 34 g/dL Low 50-[address] [place] [address] [phone] Unsaturated Iron Binding < 161 g/dL Total Iron Binding Capacity 176 g/dL Low 250-450 Transferrin 126 mg/dL Low 203-362 % Iron Saturation 19 % Normal 15-55 Protein 01/19/2020 [facility] Total 5.2 Abnormal 6.3 - Electrophoresis Spontaneously [facility] Protein(Pep) g/dL 7.9 [place], [place] [address] [phone] Albumin 2.6 g/dL Abnormal 3.4-4.7 Alpha-1 Globulin 0.2 g/dL 0.1-0.3 Alpha-2 Globulin 0.9 g/dL 0.6-1.0 Beta Globulin 0.7 g/dL 0.7-1.2 Gamma Globulin 0.7 g/dL 0.6-1.6 Albumin/Globulin Ratio 1.01 Impression See Comment 23 Laboratory 01/19/2020 [facility] Erythropoietin 5.9 2.6 - 24 test finding [facility] [address] mIU/mL 18.5 [place], [place] [address] [phone] Xray 01/14/2020 [facility] Chest PA & Lat 2 <pending> [address] [place], [place] [address] [phone] Laboratory 01/14/2020 [facility] Ferritin 708.4 High 24-336 test finding [facility] 79 Group ng/mL [place], [place] [address] [phone] CBC Auto Diff 12/23/2019 [facility] White Blood Count 5.5 Normal 3.5-10. [address] 10^3/uL 8 [place] [address] [phone] Red Blood Count 4.74 10^6/uL Normal 4.18-5.48 [...] Nucleated Red Blood Cells % 0.0 Laboratory 12/23/2019 [facility] D Dimer 261 ng/mL High Less 25 test finding [address] [place] [address] [phone] Comp Metabolic 12/23/2019 [facility] Sodium 136 Normal 135- [address] mmol/[place] [address] [phone] Potassium 4.0 mmol/L Normal 3.5-5.0 Chloride 102 [...] Egfr Non- 64.7 >60 Egfr 78.3 >60 26 Iron & Iron Binding 12/23/2019 [facility] Iron 33 g/dL Low 50-[address] [place] [address] [phone] Unsaturated Iron Binding < 205 g/dL Total Iron Binding Capacity 220 g/dL Low 250-450 Transferrin 157 mg/dL Low 203-362 % Iron Saturation 15 % Normal 15-55 CBC Auto 11/23/2019 [facility] White Blood 4.2 10^3/uL Normal 3.5-10.[address] [place] [address] [phone] Red Blood Count 4.69 10^6/uL Normal 4.18-5.48 [...] Blood Cells % 0.0 Comp Metabolic 11/23/2019 [facility] Sodium 139 mmol/L Normal 135-[address] [place] [address] [phone] Potassium 3.8 mmol/L Normal 3.5-5.0 Chloride 107 [...] Egfr Non- 53.2 >60 Egfr 64.3 >60 27 Laboratory test 09/04/2019 [facility] Surgical SEE RESULT 28, [address] Pathology BELOW [place], [place] [address] [phone] 1 SEE RESULT BELOW Name: BETO PEREZ : [address]: Akhil Núñez MD Acct: [id number] Unit: [id number] AGE: 89 Location: ED Re02/25/20 SEX: M Status: REG ER SPEC: [id number] DOMINGO: 02/25/20-620 [facility] DR: Kamila Morin MD REQ: [id number] RECD: 02/25/20 STATUS: COMP [place] DR: Serenity Martin MD _ SOURCE: STOOL SPDESC: ORDERED: Occult Bl, Scn Procedure Result Reported Site Stool Occult Blood (1) Final 02/25/20- 0715 ML Stool Occult Blood Positive * ML - Main Lab . END OF REPORT DEPARTMENT OF PATHOLOGY, [address] [place] [address] Jeet Hall M.D. Director [facility] # [id number] 2 Standard intensity warfarin therapeutic range: 2.0-3.0 High intensity warfarin therapeutic range: 2.5-3.5 3 Critical Result LACT:4.9 Called to [id number] at: 04:21:22 by:[id number] Read back by:[id number] [facility] Severe Sepsis and Septic Shock Management Bundle Measure requires all lactic acids initially measuring >2.0 mmol/L be repeated. 4 Because ethnic data is not always [...] 5 Kidney failure <15 (or dialysis) 5 Result TnIDx:0.26 Called to [id number] at: 04:38:06 by:[id number] Read back by: [id number] Troponin-I testing on Plasma Separator Tubes (PST) has a known false positive rate of 0.20-0.40%. All positive troponins reflex immediately to secondary confirmatory testing. Using the TickPick DxI 800 Access Immunoassay systems, the 99th percentile upper reference limit was demonstrated to be < 0.03 ng/mL. 6 SEE RESULTS BELOW [id number] OP PC TRANSFUSED 02/27/20 1001 [id number] OP PC TRANSFUSED 02/25/20 0550 [id number] OP PC TRANSFUSED 02/25/20 1256 7 DO THIS IN ABOUT 3-5 MONTHS Copy Result to: BAO RODNEY ([id number]) 8 Because ethnic data is not always readily [...] 15-29 5 Kidney failure <15 (or dialysis) 9 Desirable: <150 Borderline High: 150-199 High: 200-499 Very High: >500 10 Desirable: <200 Borderline High: 200-239 High: >239 11 Low: <40 Desirable: 40-60 High: >60 12 Desirable: <100 Near Optimal: 100-129 Borderline High: 130-159 High: 160-189 Very High: >189 13 Because ethnic data is not always [...] 5 Kidney failure <15 (or dialysis) 14 Suboptimal collection technique may reduce sensitivity of test. Refer to the [facility] Test Catalog for collection information: [email or web address] As with all diagnostic procedures, the laboratory results obtained should be used in conjunction with other clinical information available to the physician, including confirmation by another method, as applicable. 15 Buffer Chrome: [email or web address] 16 Because ethnic data is not always [...] 5 Kidney failure <15 (or dialysis) 18 Standard intensity warfarin therapeutic range: 2.0-3.0 High intensity warfarin therapeutic range: 2.5-3.5 19 Because ethnic data is not always [...] 5 Kidney failure <15 (or dialysis) 20 SEE RESULT BELOW Name: BETO PEREZ : [address]: Julien Sheikh MD Acct: [id number] Unit: [id number] AGE: 89 Location: ENDO Re01/19/20 SEX: M Status: REG REF SPEC: [id number] DOMINGO: 01/19/20-1306 [facility] [address]: Julien Sheikh MD REQ: [id number] RECD: 01/19/20484 STATUS: COMP [facility] DR: Serenity M Cotton MD _ SOURCE: GAS ANTRUM SPDESC: ORDERED: Clotest Procedure Result Reported Site Clotest Final 01/20/20- 0943 ML Clotest Negative * ML - Main Lab . END OF REPORT DEPARTMENT OF PATHOLOGY, [address] [place] [address] Jeet Hall M.D. Director [facility] # [id number] 21 SEE RESULT BELOW Name: TOÑABETO : [address]: Julien Sheikh MD Acct: [id number] Unit: [id number] AGE: 89 Location: ENDO Re01/19/20 SEX: M Status: REG REF SPEC: [id number] DOMINGO: 01/19/20-6 [facility] DR: Julien Sheikh MD REQ: [id number] RECD: 01/19/20 STATUS: TUNDE MEJIA DR: Serenity Martin MD _ SOURCE: STOOL SPDESC: ORDERED: Occult Bl, Diag Procedure Result Reported Site Stool Occult Blood (1) Final 01/19/20- 1535 ML Stool Occult Blood Negative Collection Date (1) 01/19/20 * ML - Main Lab . END OF REPORT DEPARTMENT OF PATHOLOGY, [address] [place] [address] Jeet Hall M.D. Director [facility] # [id number] 22 Because ethnic data is not always readily [...] 15-29 5 Kidney failure <15 (or dialysis) 23 RESULT: No apparent monoclonal protein on serum electrophoresis. Test Performed by: [place] [address] [employer] Foreign [employer] Teacher: Norberto Cutler M.D. Ph.D.; CLIA# [id number] 24 Test Performed by: [place] [address] [employer] Foreign Language Teacher: Norberto Cutler M.D. Ph.D.; CLIA# [id number] 25 Please note: The following may produce a false positive D Dimer test: - Rheumatoid factor greater than 60 IU/ml - Plasma hemoglobin greater than 0.05 gm/dl - Bilirubin greater than 50 mg/dl - Lipids greater than 1000 mg/dl - FDP greater than 20 ug/ml 26 Because ethnic data is not always readily [...] 15-29 5 Kidney failure <15 (or dialysis) 27 Because ethnic data is not always readily [...] 15-29 5 Kidney failure <15 (or dialysis) 28 [id number] 29 SEE RESULT BELOW Name: TOÑABETO : [address]: Oj Quintero MD Acct: [id number] Unit: [id number] AGE: 89 Location: [facility] Re09/04/19 SEX: M Status: REG REF SPEC: [id number] DOMINGO: 09/04/198 [facility] DR: Oj Quintero MD REQ: [id number] RECD: 09/04/199489 STATUS: MANPREET MEJIA DR: Serenity Hanson MD _ ORDERED: LEVEL 4 COMMENTS: [id number] FINAL DIAGNOSIS Skin, right mid forehead, excision: -- Scar, excised. -- No evidence of residual basal cell carcinoma. COMMENT: The previous lesion at this site ([id number]) has been completely excised. CLINICAL HISTORY See [facility] [id number] PRE-OPERATIVE DIAGNOSIS Basal cell carcinoma, suture lopez 12:00 medial apex margin GROSS DESCRIPTION The specimen is received in formalin labeled, Excision Basal Cell Carcinoma Right Mid Forehead, Suture Lopez 12:00 Medial Clutier Margin, and consists of a 3.0 x [...] 1103 END OF REPORT DEPARTMENT OF PATHOLOGY, [address] [place] [address] Jeet Hall M.D. Director [facility] # [id number] Procedures Date Code Description Status 03/02/2020 21134 ECHO Transthorasic Realtime 2D W Doppler & Color Flow Completed Hosp 02/24/2020 78498 Echocardiogram, Limited Study Completed 02/24/2020 18048 Echocardiogram, Limited Study Completed 02/24/2020 72471 Echocardiogram, Limited Study Completed 02/24/2020 09669 EKG Tracing & Interpretation Completed 01/28/2020 71498 Cath PLMT&NJX L Ventriculog Img S&I Completed 01/20/2020 25116 EKG Tracing & Interpretation Completed 01/19/2020 87816 Endoscopy Upper GI Biopsy Completed 01/11/2020 83940 ECHO Transthoracic, Real-Time 2D With Doppler And Color Completed Flow 01/11/2020 92061 ECHO Transthoracic, Real-Time 2D With Doppler And Color Completed Flow 12/21/2019 58401 EKG Tracing & Interpretation Completed 12/07/2019 28751 Inject/Drain Joint/Bursa Major W/O US Completed 12/15/2013 95280029 Colonoscopy Completed 10/21/2007 97241464 Colonoscopy Completed 02/18/2001 [id number] Colonoscopy Completed Medical Devices Description No Information Available Encounters Type Date Location Provider Dx Diagnosis Office Visit 02/25/2020 Surgical Bernie Lozoya MD K63.1 Perforation of 7:00a [facility] intestine (nontraumatic) Office Visit 02/19/[address] [facility] Internal Serenity Martin M79.10 Myalgia, 2:00p Medicine - Mary Jo Cole unspecified site K59.00 Constipation, unspecified Office Visit 02/17/2020 11:38a [facility] Dulce M62.82 [facility] Assoc,diana Andrews D.O. Hospitalists I25.5 Ischemic cardiomyopathy I10 Essential (primary) hypertension Office Visit 02/16/2020 11:37a [facility] Marisa Lira M62.82 Rhabdomyolysis Assoc,diana N.PRenita Hospitalists I10 Essential (primary) hypertension I25.5 Ischemic cardiomyopathy Office Visit 02/15/2020 3:20p Rheumatology Vinod Bowen M62.82 [facility] Of Malu Cole R74.8 Abnormal levels of other serum enzymes R23.2 [place] Office Visit 02/15/2020 11:36a [facility] Martir M62.82 Rhabdomyolysis Assocdiana M.D. Hospitalists I10 Essential (primary) hypertension Office Visit 02/13/2020 11:34a [facility] Martir M62.82 Rhabdomyolysis Assoc,diana Case M.D. Hospitalists I10 Essential (primary) hypertension Office Visit 02/08/2020 9:[address]a [facility] Internal Serenity M79.10 Myalgia, Medicine - Kelsey [facility] Acute upper respiratory infection, unspecified R19.7 Diarrhea, unspecified Office Visit 02/02/2020 [place] Alexandrea Blake 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, 3:00p Cardiology Of MD Trudi, unspecified [employer] [facility] Office Visit 01/20/2020 Zoya Piedra D50.9 Iron deficiency 10:30a Cardiology Kelsey Rodney anemia, unspecified R60.0 Localized edema 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, unspecified I10 Essential (primary) hypertension I50.22 Chronic systolic (congestive) heart failure I49.5 Sick sinus syndrome I49.3 Ventricular premature depolarization I45.19 Other right bundle-branch block I45.2 Bifascicular block R94.31 Abnormal electrocardiogram [ECG] [EKG] Office Visit 01/14/[address] [facility] Gastroenterology Vanessa D50.9 Iron deficiency 1:10p Alison anemia, Elsa, NILDA unspecified R60.0 Localized edema 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, unspecified Office Visit 12/31/2019 8:40a [facility] Internal Serenity R60.0 Localized edema Medicine - Mary Jo Martin M.D. M25.562 Pain in left knee Office Visit 12/25/2019 9:15a [facility] Genojeovany Clemens, M25.562 Pain in left at [facility].D. knee M25.462 Effusion, left knee M17.12 Unilateral primary osteoarthritis, left knee Office Visit 12/21/2019 [place] Bao Piedra 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, 3:20p Cardiology Kris Rodney M.D. unspecified [employer]er I10 Essential (primary) hypertension D64.9 Anemia, unspecified I49.3 Ventricular premature depolarization R60.0 Localized edema I82.402 Acute embolism and thombos unsp deep veins of l low extrem I45.89 Other specified conduction disorders R94.31 Abnormal electrocardiogram [ECG] [EKG] Office Visit 12/07/2019 9:00a [facility] Genojeovany Clemens, M25.562 Pain in left at [place] M.D. knee M25.462 Effusion, left knee M17.12 Unilateral primary osteoarthritis, left knee M54.32 Sciatica, left side Assessments Date Code Description Provider 03/02/2020 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, unspecified Ivonne Thakkar M.D. 03/02/2020 R55 Syncope and collapse Ivonne Thakkar M.D. 03/02/2020 I47.2 Ventricular tachycardia Ivonne Thakkar M.D. 03/02/2020 I48.0 Paroxysmal atrial fibrillation Ivonne Thakkar M.D. 02/25/2020 K63.1 Perforation of intestine Bernie Lozoya MD (nontraumatic) 02/24/2020 R55 Syncope and collapse Bao Rodney M.D. 02/24/2020 R55 Syncope and collapse [place] [facility] Schedule 02/24/2020 M79.10 Myalgia, unspecified site Bao Rodney M.D. 02/24/2020 R60.0 Localized edema [place] [facility] Schedule 02/24/2020 M62.82 Rhabdomyolysis Bao Rodney M.D. 02/24/2020 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, unspecified [place] [facility] Schedule 02/24/2020 I10 Essential (primary) hypertension Bao Rodney M.D. 02/24/2020 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, unspecified Bao Rodney M.D. 02/24/2020 D50.9 Iron deficiency anemia, unspecified Bao Rodney M.D. 02/24/2020 R55 Syncope and collapse Bao Rodney M.D. 02/19/2020 M79.10 Myalgia, unspecified site Serenity Martin M.D. 02/19/2020 K59.00 Constipation, unspecified Serenity Martin M.D. 02/18/2020 M62.82 Rhabdomyolysis Dulce Andrews D.O. 02/18/2020 I10 Essential (primary) hypertension Dulce Andrews D.O. 02/18/2020 R74.8 Abnormal levels of other serum Dulce Andrews D.O. enzymes 02/17/2020 M62.82 Rhabdomyolysis Dulce Andrews D.O. 02/17/2020 I25.5 Ischemic cardiomyopathy Dulce Andrews D.O. 02/17/2020 I10 Essential (primary) hypertension Dulce Andrews D.O. 02/16/2020 M62.82 Rhabdomyolysis Marisa Lira, N.P. 02/16/2020 I10 Essential (primary) hypertension Marisa Lira, N.P. 02/16/2020 I25.5 Ischemic cardiomyopathy Marisa Lira, N.P. 02/15/2020 M62.82 Rhabdomyolysis Vinod Bowen M.D. 02/15/2020 M62.82 Rhabdomyolysis Martir Case M.D. 02/15/2020 R74.8 Abnormal levels of other serum Vinod Bowen M.D. enzymes 02/15/2020 I10 Essential (primary) hypertension Martir Case M.D. 02/15/2020 R23.2 [place] Vinod Bowen M.D. 02/14/2020 M62.82 Rhabdomyolysis Martir Case M.D. 02/14/2020 I10 Essential (primary) hypertension Martir Case M.D. 02/13/2020 M62.82 Rhabdomyolysis Martir Case M.D. 02/13/2020 I10 Essential (primary) hypertension Martir Case M.D. 02/12/2020 M62.82 Rhabdomyolysis Martir Case M.D. 02/12/2020 I10 Essential (primary) hypertension Martir Case M.D. 02/08/2020 M79.10 Myalgia, unspecified site Serenity Martin M.D. 02/08/2020 J06.9 Acute upper respiratory infection, Serenity Martin M.D. unspecified 02/08/2020 R19.7 Diarrhea, unspecified Serenity Martin M.D. 02/02/2020 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, unspecified Alexandrea Brush MD, [facility] 01/28/2020 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, unspecified Shimon Clifford M.D., [facility], [facility] 01/20/2020 D50.9 Iron deficiency anemia, unspecified Bao [...] Bao Rodney M.D. 01/11/2020 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, unspecified [place] [facility] Schedule 12/31/2019 R60.0 Localized edema Serenity [...] Serenity Martin M.D. 11/27/2019 D64.9 Anemia, unspecified Sreenity Martin M.D. Plan of Treatment Future Appointment(s):03/18/2020 8:45 am - eGno Clemens M.D. at [facility] at [id number]/24/2020 - Bao Rodney M.D.M79.10 Myalgia, unspecified siteM62.82 [id number] Essential (primary) mnhiwbxxeignV07.9 Cardiomyopathy, unspecifiedRecommendations:take torsemide 10 mg on 3.26.20 am and call 3.27 to report on urination, change in weight and changein edema.D50.9 Iron deficiency anemia, [id number] Syncope and collapseNew Orders:[facility], Ordered: 02/24/20Follow up:tele ov in 2 weeks. Functional Status Description No Information Available Mental Status Description No Information Available Referrals Refer to Reason for Referral Status Appt Date Julien Sheikh MD Scheduled 01/14/2020 [address] [place] [address] [phone]
--- OUTSIDE RECORDS SUMMARY | 2020-03-04 10:26 | XMS REPORT | Continuity of Care Document ---
:1930 External Reference #:[id number] Author Name Marisa Lira N.P. (transmitted by agent of provider Jenny Oliver) Address [address] , [facility] [place] [address] Care Team Providers Name Role Phone Glenda Physical Therapy Care Team Information Exceptional Needs Teacher [place] - Physical Therapist Serenity Martin MD - Internal Care Team Information Exceptional Needs Teacher Medicine Bao Rodney MD - Cardiovascular Care Team Information Exceptional Needs Teacher Disease Julien Sheikh MD - Gastroenterology Care Team Information Exceptional Needs Teacher Problems Active Problems Provider Date Edema of [...] Injection Technetium TC 99M Golden Champagne, DO [facility] 04/20/2019 Tetrofosmin, Per Unit Dose Up To 40 Millicuries Injection Technetium TC 99M Golden Champagne, DO [facility] 04/20/2019 Tetrofosmin, Per Unit Dose Up To [...] CPT Code Status Date Vaccine Lot # [id number] Given 09/25/2019 Influenza Virus Vaccine, Quadrivalent, Split, Preservative Free [id number] Given 09/24/2018 Influenza Virus Vaccine, Quadrivalent, Split, Preservative Free 07275 Given 09/23/2017 Influenza Virus Vaccine, Quadrivalent, Split, [id number] Preservative Free 39282 Given 09/23/2017 Pneumococcal Conjugate Vaccine 13 Valent For [id number] Intramuscular Use Vital Signs Date Vital Result [...] H/L Range Note Date Stool Occult 02/25/2020 [facility] Stool SEE RESULT 1 Blood, Screen [address] [place] [address] Blood, [phone] Screen Inr/Protime 02/25/2020 [facility] Inr 1.20 High 0.82-1.[address] [place] [address] [phone] Laboratory 02/25/2020 [facility] Lactic Acid 4.9 mmol/L Critical 0.5-2.0 [address] [place] [address] [phone] Type & Screen 02/25/2020 [facility] Patient O Positive [address] [place] [address] [phone] Antibody Screen NEGATIVE Comp Metabolic 02/25/2020 [facility] Sodium 136 mmol/L Normal 135-[address] [place] [address] [phone] Potassium 4.3 mmol/L Normal 3.5-5.0 Chloride 107 [...] Egfr 52.8 >60 4 Laboratory test 02/25/2020 [facility] Magnesium 1.9 mg/dL Normal 1.9-2.[address] [place], [place] [address] [phone] Troponin-I (TnI) 0.26 ng/mL Critical high <0.03 5 TSH (Thyroid Stim Horm) 1.56 mcIU/mL Normal 0.34-5.60 CBC Auto 02/25/2020 [facility] White Blood 12.3 10^3/uL High 3.5-10.[address] [place] [address] [phone] Red Blood Count 3.13 10^6/uL Low 4.18-5.48 [...] Red Blood Cells % 0.1 Laboratory test 02/12/2020 [facility] C Reactive 22.69 mg/L High <8.[address] [place] [address] [phone] Creatine Kinase(CK) 3086 U/L High 10-223 Erythrocyte Sed Rate 19 mm/Hr Normal 0-19 Ferritin > 1500.0 ng/mL High 24-336 6 Urinalysis Profile 02/12/2020 [facility] Urine Color Yellow [address] [place] [address] [phone] Urine Appearance Clear Urine Specific Bridger 1.020 Normal 1.010-1.030 Urine pH 6 Normal 5-9 Urine Urobilinogen Negative Negative Urine Ketones Negative Negative Urine Protein 1+(30 mg/dL) Abnormal Negative Urine Leukocytes Negative Negative Urine Blood Negative Negative Urine Nitrite Negative Negative Urine Bilirubin Negative Negative Urine Glucose Negative Negative CBC Auto 02/12/2020 [facility] White Blood 5.2 10^3/uL Normal 3.5-10.[address] [place] [address] [phone] Red Blood Count 5.52 10^6/uL High 4.18-5.48 [...] Blood Cells % 0.1 Comp Metabolic 02/12/2020 [facility] Sodium 138 mmol/L Normal 135-[address] [place] [address] [phone] Potassium 3.6 mmol/L Normal 3.5-5.0 Chloride 104 [...] Egfr Non- 63.3 >60 Egfr 76.6 >60 7 Lipid Profile 02/12/2020 [facility] Triglycerides 128 mg/dL 8 (Trig/Chol/HDL) [address] [place] [address] [phone] Cholesterol 169 mg/dL 9 HDL Cholesterol 57.9 mg/dL 10 LDL Cholesterol 86 mg/dL 11 Laboratory test 02/12/2020 [facility] Creatine 3114 U/L High 10-[address] Kinase(CK) [place] [address] [phone] Comp Metabolic 02/12/2020 [facility] Sodium 137 Normal 135- [address] mmol/[place] [address] [phone] Potassium 3.4 mmol/L Low 3.5-5.0 Chloride 106 [...] Egfr Non- 64.0 >60 Egfr 77.4 >60 12 Influenza A & B 02/08/2020 [facility] Flu AB Disclaimer (SEE NOTE) [address] [place] [address] [phone] Influenza A Molecular Negative Negative Influenza B Molecular Negative Negative 14 Laboratory test 02/08/2020 [facility] C Reactive 12.59 mg/L High <8.[address] [place] [address] [phone] Erythrocyte Sed Rate 12 mm/Hr Normal 0-19 TSH (Thyroid Stim Horm) 1.88 mcIU/mL Normal 0.34-5.60 Comp Metabolic Panel 02/08/2020 [facility] Sodium 134 mmol/L Low 135-[address] [place] [address] [phone] Potassium 4.0 mmol/L Normal 3.5-5.0 Chloride 101 [...] Egfr Non- 65.4 >60 Egfr 79.1 >60 15 Laboratory test 02/08/2020 [facility] Creatine 2680 U/L High 10-[address] [facility] Kinase(CK) [place] [address] [phone] CBC Auto Diff 02/08/2020 [facility] White Blood 5.5 Normal 3.5 -10.[address] [facility] Count 10^3/[place] [address] [phone] Red Blood Count 5.31 10^6/uL Normal 4.18-5.48 [...] Blood Cells % 0.1 Basic Metabolic 01/28/2020 [facility] Sodium 133 mmol/L Low 135-[address] [place] [address] [phone] Chloride 101 mmol/L Normal 101-111 Co2 Carbon Dioxide 28 mmol/L Normal 22-32 Glucose 81 mg/dL Normal 70-100 Blood Urea Nitrogen 17 mg/dL Normal 6-24 Creatinine 1.03 mg/dL Normal 0.67-1.17 BUN/Creatinine Ratio 16.5 Normal 8-20 Calcium 8.2 mg/dL Low 8.6-10.3 Egfr Non- 68.3 >60 Egfr 82.7 >60 16 Potassium 4.2 mmol/L Normal 3.5-5.0 Anion Gap 4 mmol/L Normal 2-11 Cath Panel 01/25/2020 [facility] Partial 28.1 seconds Normal 26.0-38.[address] [place] [address] PTT [phone] CBC Auto 01/25/2020 [facility] White Blood 4.3 10^3/uL Normal 3.5-10.[address] [place] [address] [phone] Red Blood Count 5.07 10^6/uL Normal 4.18-5.48 [...] Red Blood Cells % 0.0 Inr/Protime 01/25/2020 [facility] Inr 0.99 Normal 0.82-1.[address] [place] [address] [phone] Basic Metabolic 01/25/2020 [facility] Sodium 134 mmol/L Low 135-145 Panel [address] [place] [address] [phone] Potassium 4.0 mmol/L Normal 3.5-5.0 Chloride 101 mmol/L Normal 101-111 Co2 Carbon Dioxide 27 mmol/L Normal 22-32 Anion Gap 6 mmol/L Normal 2-11 Glucose 104 mg/dL High 70-100 Blood Urea Nitrogen 26 mg/dL High 6-24 Creatinine 1.21 mg/dL High 0.67-1.17 BUN/Creatinine Ratio 21.5 High 8-20 Calcium 8.0 mg/dL Low 8.6-10.3 Egfr Non- 56.7 >60 Egfr 68.6 >60 18 Laboratory test 01/19/2020 [facility] Clotest SEE RESULT [address] [place] [address] [phone] Stool Occult 01/19/2020 [facility] Stool Occult SEE RESULT [address] Blood, [place] [address] [phone] CBC No Diff 01/19/2020 [facility] White Blood 5.3 10^3/uL Normal 3.5-[address] Count 0.8 [place] [address] [phone] Red Blood Count 4.93 10^6/uL Normal 4.18-5.48 Hemoglobin 12.5 g/dL Low 14.0-18.0 Hematocrit 38 % Low 42-52 Mean Corpuscular Volume 78 fL Low 80-94 Mean Corpuscular Hemoglobin 25 pg Low 27-31 Mean Corpuscular HGB Conc 33 g/dL Normal 31-36 Red Cell Distribution Width 15 % Normal 10-15 Platelet Count 157 10^3/uL Normal 150-450 Mean Platelet Volume 9.0 fL Normal 7.4-10.4 Laboratory test 01/19/2020 [facility] B-Type 361 pg/mL High <= [address] [place] [address] Peptide BNP [phone] Comp Metabolic 01/19/2020 [facility] Sodium 135 Normal 135- [address] mmol/[place] [address] [phone] Potassium 3.9 mmol/L Normal 3.5-5.0 Chloride 101 [...] Egfr Non- 61.4 >60 Egfr 74.3 >60 21 Iron & Iron Binding 01/19/2020 [facility] Iron 34 g/dL Low 50-[address] [place] [address] [phone] Unsaturated Iron Binding < 161 g/dL Total Iron Binding Capacity 176 g/dL Low 250-450 Transferrin 126 mg/dL Low 203-362 % Iron Saturation 19 % Normal 15-55 Protein 01/19/2020 [facility] Total 5.2 Abnormal 6.3 - Electrophoresis [address] Protein(Pep) g/dL 7.9 [place] [address] [phone] Albumin 2.6 g/dL Abnormal 3.4-4.7 Alpha-1 Globulin 0.2 g/dL 0.1-0.3 Alpha-2 Globulin 0.9 g/dL 0.6-1.0 Beta Globulin 0.7 g/dL 0.7-1.2 Gamma Globulin 0.7 g/dL 0.6-1.6 Albumin/Globulin Ratio 1.01 Impression See Comment 22 Laboratory 01/19/2020 [facility] Erythropoietin 5.9 2.6 - 23 test finding [address] mIU/mL 18.5 [place] [address] [phone] Xray 01/14/2020 [facility] Chest PA & Lat 2 <pending> [address] VWS [place], [place] [address] [phone] Laboratory 01/14/2020 [facility] Ferritin 708.4 High 24-336 test finding [address] ng/[place] [address] [phone] CBC Auto Diff 12/23/2019 [facility] White Blood Count 5.5 Normal 3.5-10. [address] 10^3/uL 8 [place] [address] [phone] Red Blood Count 4.74 10^6/uL Normal 4.18-5.48 [...] Red Blood Cells % 0.0 Laboratory 12/23/2019 [facility] D Dimer 261 ng/mL High Less 24 test finding [address] [place] [address] [phone] Comp Metabolic 12/23/2019 [facility] Sodium 136 Normal 135- [address] mmol/[place] [address] [phone] Potassium 4.0 mmol/L Normal 3.5-5.0 Chloride 102 [...] Egfr Non- 64.7 >60 Egfr 78.3 >60 25 Iron & Iron Binding 12/23/2019 [facility] Iron 33 g/dL Low 50-[address] [place] [address] [phone] Unsaturated Iron Binding < 205 g/dL Total Iron Binding Capacity 220 g/dL Low 250-450 Transferrin 157 mg/dL Low 203-362 % Iron Saturation 15 % Normal 15-55 CBC Auto 11/23/2019 [facility] White Blood 4.2 10^3/uL Normal 3.5-10.[address] [place] [address] [phone] Red Blood Count 4.69 10^6/uL Normal 4.18-5.48 [...] Blood Cells % 0.0 Comp Metabolic 11/23/2019 [facility] Sodium 139 mmol/L Normal 135-[address] [place] [address] [phone] Potassium 3.8 mmol/L Normal 3.5-5.0 Chloride 107 [...] Egfr Non- 53.2 >60 Egfr 64.3 >60 26 Laboratory test 09/04/2019 [facility] Surgical SEE RESULT 27, [address] Pathology BELOW [place], [place] [address] [phone] 1 SEE RESULT BELOW Name: BETO PEREZ : [address]: Akhil Núñez MD Acct: [id number] Unit: [id number] AGE: 89 Location: ED Re02/25/20 SEX: M Status: REG ER SPEC: [id number] DOMINGO: 02/25/20-[address] [facility] [address]: Kamila Morin MD REQ: [id number] RECD: 02/25/20 STATUS: TUNDE MEJIA DR: Serenity Martin MD _ SOURCE: STOOL SPDESC: ORDERED: Occult Bl, Scn Procedure Result Reported Site Stool Occult Blood (1) Final 02/25/20- 0715 ML Stool Occult Blood Positive * ML - Main Lab . END OF REPORT DEPARTMENT OF PATHOLOGY, [address] [place] [address] Jeet Hall M.D. Director [facility] # [id number] 2 Standard intensity warfarin therapeutic range: 2.0-3.0 High intensity warfarin therapeutic range: 2.5-3.5 3 Critical Result LACT:4.9 Called to [id number] at: 04:21:22 by:[id number] Read back by:[id number] [facility] Severe Sepsis and Septic Shock Management [...] (or dialysis) 5 Result TnIDx:0.26 Called to [id number] at: 04:38:06 by:[id number] Read back by: [id number] Troponin-I testing on Plasma Separator Tubes (PST) has a known false positive rate of 0.20-0.40%. All positive troponins reflex immediately to secondary confirmatory testing. Using the [employer] DxI 800 Access Immunoassay systems, the 99th percentile upper reference limit was demonstrated to be < 0.03 ng/mL. 6 DO THIS IN ABOUT 3-5 MONTHS Copy Result to: BAO RODNEY ([id number]) 7 Because ethnic data is not always [...] 5 Kidney failure <15 (or dialysis) 8 Desirable: <150 Borderline High: 150-199 High: 200-499 Very High: >500 9 Desirable: <200 Borderline High: 200-239 High: >239 10 Low: <40 Desirable: 40-60 High: >60 11 Desirable: <100 Near Optimal: 100-129 Borderline High: 130-159 High: 160-189 Very High: >189 12 Because ethnic data is not always readily [...] 15-29 5 Kidney failure <15 (or dialysis) 13 Suboptimal collection technique may reduce sensitivity of test. Refer to the [facility] Test Catalog for collection information: [email or web address] As with all diagnostic procedures, the laboratory results obtained should be used in conjunction with other clinical information available to the physician, including confirmation by another method, as applicable. 14 Commercial Underwriter: [id number] 15 Because ethnic data is not always readily [...] 15-29 5 Kidney failure <15 (or dialysis) 16 Because ethnic data is not always [...] 5 Kidney failure <15 (or dialysis) 17 Standard intensity warfarin therapeutic range: 2.0-3.0 High intensity warfarin therapeutic range: 2.5-3.5 18 Because ethnic data is not always [...] 5 Kidney failure <15 (or dialysis) 19 SEE RESULT BELOW Name: BETO PEREZ : [address]: Julien Sheikh MD Acct: [id number] Unit: [id number] AGE: 89 Location: ENDO Re01/19/20 SEX: M Status: REG REF SPEC: [id number] DOMINGO: 01/19/20-[address] [facility] [address]: Julien Sheikh MD REQ: [id number] RECD: 01/19/20 STATUS: TUNDE MEJIA DR: Serenity Martin MD _ SOURCE: [facility]: ORDERED: Clotest Procedure Result Reported Site Clotest Final 01/20/20- 942 ML Clotest Negative * ML - Main Lab . END OF REPORT DEPARTMENT OF PATHOLOGY, [address] [place] [address] Jeet Hall M.D. Director [facility] # [id number] 20 SEE RESULT BELOW Name: BETO PEREZ : [address]: Julien Sheikh MD Acct: [id number] Unit: [id number] AGE: 89 Location: ENDO Re01/19/20 SEX: M Status: REG REF SPEC: [id number] DOMINGO: 01/19/20-[address] [facility] [address]: Julien Sheikh MD REQ: [id number] RECD: 01/19/20 STATUS: COMP ROBERTO DR: Serenity Martin MD _ SOURCE: STOOL SPDESC: ORDERED: Occult Bl, Diag Procedure Result Reported Site Stool Occult Blood (1) Final 01/19/20- 1535 ML Stool Occult Blood Negative Collection Date (1) 01/19/20 * ML - Main Lab . END OF REPORT DEPARTMENT OF PATHOLOGY, [address] [place] [address] Jeet Hall M.D. Director [facility] # [id number] 21 Because ethnic data is not always [...] 5 Kidney failure <15 (or dialysis) 22 RESULT: No apparent monoclonal protein on serum electrophoresis. Test Performed by: [place] [address] Airline Radio Operator: Norberto Cutler M.D. Ph.D.; CLIA# [id number] 23 Test Performed by: [facility] [place] [address] Airline Radio Operator: Norberto Cutler M.D. Ph.D.; CLIA# [id number] 24 Please note: The following may produce a false positive D Dimer test: - Rheumatoid factor greater than 60 IU/ml - Plasma hemoglobin greater than 0.05 gm/dl - Bilirubin greater than 50 mg/dl - Lipids greater than 1000 mg/dl - FDP greater than 20 ug/ml 25 Because ethnic data is not always readily [...] 15-29 5 Kidney failure <15 (or dialysis) 26 Because ethnic data is not always [...] 5 Kidney failure <15 (or dialysis) 27 [id number] 28 SEE RESULT BELOW Name: BETO PEREZ : [address]: Oj Quintero MD Acct: [id number] Unit: [id number] AGE: 89 Location: [facility] Re09/04/19 SEX: M Status: REG REF SPEC: [id number] DOMINGO: 09/04/[address] [facility] [address]: Oj Quintero MD REQ: [id number] RECD: 09/04/199 STATUS: MANPREET MEJIA DR: Serenity Hanson MD _ ORDERED: LEVEL 4 COMMENTS: [id number] FINAL DIAGNOSIS Skin, right mid forehead, excision: -- Scar, excised. -- No evidence of residual basal cell carcinoma. COMMENT: The previous lesion at this site ([id number]) has been completely excised. CLINICAL HISTORY See [facility] [place] [phone] PRE-OPERATIVE DIAGNOSIS Basal cell carcinoma, suture lopez 12:00 medial apex margin GROSS DESCRIPTION The specimen is received in formalin labeled, Excision Basal Cell Carcinoma Right Mid Forehead, Suture Lopez 12:00 Medial [place] Margin, and consists of a 3.0 x 1.1 cm mottled clavin-white hairbearing skin ellipse excised to a maximum [...] 1103 END OF REPORT DEPARTMENT OF PATHOLOGY, [address] [place] [address] Jeet Hall M.D. Director [facility] # [id number] Procedures Date Code Description Status 02/24/2020 44424 Echocardiogram, Limited Study Completed 02/24/2020 80689 Echocardiogram, Limited Study Completed 02/24/2020 74559 EKG Tracing & Interpretation Completed 01/28/2020 37759 Cath PLMT&NJX L Ventriculog Img S&I Completed 01/20/2020 53258 EKG Tracing & Interpretation Completed 01/19/2020 83575 Endoscopy Upper GI Biopsy Completed 01/11/2020 61287 ECHO Transthoracic, Real-Time 2D With Doppler And Color Completed Flow 01/11/2020 67536 ECHO Transthoracic, Real-Time 2D With Doppler And Color Completed Flow 12/21/2019 55043 EKG Tracing & Interpretation Completed 12/07/2019 65996 Inject/Drain Joint/Bursa Major W/O US Completed 12/15/2013 78054572 Colonoscopy Completed 10/21/2007 88811368 Colonoscopy Completed 02/18/2001 71351739 Colonoscopy Completed Medical Devices Description No Information Available Encounters Type Date Location Provider Dx Diagnosis Office Visit 02/19/2020 [facility] Internal Serenity Martin MTaylor.[email or web address] Myalgia, 2:00p Medicine Meri Camargo M.D. unspecified site K59.00 Constipation, unspecified Office Visit 02/17/2020 11:38a [facility] Dulce M62.82 Rhabdomyolysis Assoc,pc Matt Andrews Hospitalists I25.5 Ischemic cardiomyopathy I10 Essential (primary) hypertension Office Visit 02/16/2020 11:37a [facility] Marisa Lira M62.82 Rhabdomyolysis Assoc,diana McculloughPRenita Hospitalists I10 Essential (primary) hypertension I25.5 Ischemic cardiomyopathy Office Visit 02/15/2020 11:36a [facility] Martir M62.82 Rhabdomyolysis Assoc,diana Case M.D. Hospitalists I10 Essential (primary) hypertension Office Visit 02/13/2020 11:34a [facility] Martir M62.82 Rhabdomyolysis Assoc,pc Kelsey Case Hospitalists I10 Essential (primary) hypertension Office Visit 02/08/2020 9:00a [facility] Internal Serenity M79.10 Myalgia, Gissel Martin M.D. 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[facility] Office Visit 01/20/2020 Zoya Piedra D50.9 Iron deficiency 10:30a Cardiology Kelsey Rodney anemia, unspecified R60.0 Localized edema 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, unspecified I10 Essential (primary) hypertension I50.22 Chronic systolic (congestive) heart failure I49.5 Sick sinus syndrome I49.3 Ventricular premature depolarization 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 M25.562 Pain in left knee Office Visit 12/25/2019 9:15a [facility] Genopanfilo Clemens, M25.562 Pain in left at [place] M.D. knee M25.462 Effusion, left knee M17.12 Unilateral primary osteoarthritis, left knee Office Visit 12/21/2019 [place] Bao Piedra 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, 3:20p Cardiology Of Kelsey Rodney unspecified [facility] I10 Essential (primary) hypertension D64.9 Anemia, unspecified I49.3 Ventricular premature depolarization R60.0 Localized edema I82.402 Acute embolism and thombos unsp deep veins of l low extrem I45.89 Other specified conduction disorders R94.31 Abnormal electrocardiogram [ECG] [EKG] Office Visit 12/07/2019 9:00a [facility] Genojeovany Clemens, M25.562 Pain in left at [place] M.D. knee M25.462 Effusion, left knee M17.12 Unilateral primary osteoarthritis, left knee M54.32 Sciatica, left side Assessments Date Code Description Provider 02/24/2020 R55 Syncope and collapse [place] [facility] Schedule 02/24/2020 M79.10 Myalgia, unspecified site Bao Rodney M.D. 02/24/2020 R60.0 Localized edema [facility] Schedule 02/24/2020 M62.82 Rhabdomyolysis Bao Rodney M.D. 02/24/2020 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, unspecified [facility] Schedule 02/24/2020 I10 Essential (primary) hypertension Bao Rodney M.D. 02/24/2020 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, unspecified Bao Rodney M.D. 02/24/2020 D50.9 Iron deficiency anemia, unspecified Bao Rodney M.D. 02/24/2020 R55 Syncope and collapse Bao Rodney M.D. 02/19/2020 M79.10 Myalgia, unspecified site Serenity Martin M.D. 02/19/2020 K59.00 Constipation, unspecified Serenity Martin M.D. 02/17/2020 M62.82 Rhabdomyolysis Dulce Andrews D.O. 02/17/2020 I25.5 Ischemic cardiomyopathy Ruby HeardO. 02/17/2020 I10 Essential (primary) hypertension Ruby HeardO. 02/16/2020 M62.82 Rhabdomyolysis Marisa Lira, N.P. 02/16/2020 I10 Essential (primary) hypertension Marisa Lira, N.P. 02/16/2020 I25.5 Ischemic cardiomyopathy Marisa Lira, N.P. 02/15/2020 M62.82 Rhabdomyolysis Martir Case M.D. 02/15/2020 I10 Essential (primary) hypertension Martir Case M.D. 02/14/2020 M62.82 Rhabdomyolysis Martir Case M.D. [...] 02/02/2020 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, unspecified Alexandrea Brush MD, [facility] 01/28/2020 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, unspecified Shimon Clifford M.D., [facility] 01/20/2020 D50.9 Iron deficiency anemia, unspecified [...] NILDA 01/14/2020 R60.0 Localized edema Vanessa Hunter, REAL ESTATE SERVICES ADMINISTRATOR 01/14/2020 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, unspecified Vanessa Hunter, REAL ESTATE SERVICES ADMINISTRATOR 01/11/2020 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, unspecified Bao Rodney M.D. 01/11/2020 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, unspecified [place] [facility] Schedule 12/31/2019 R60.0 Localized edema Serenity Martin M.D. 12/31/2019 M25.562 Pain in left knee Serenity Matrin M.D. 12/25/2019 M25.562 Pain in left knee Geno Clemens M.D. 12/25/2019 M25.462 Effusion, left knee Geno lCemens M.D. 12/25/2019 M17.12 Unilateral primary osteoarthritis, Geno [...] 8:45 am - Geno Clemens M.D. at [facility] at [facility]1402/24/2020 - Bao Rodney M.D.M79.10 Myalgia, unspecified siteM62.82 [id number] Essential (primary) rundqiupyyuwK92.9 Cardiomyopathy, unspecifiedRecommendations:take torsemide 10 mg on 3.20 am and call 02.25 to report on urination, change in weight and changein edema.D50.9 Iron deficiency anemia, [id number] Syncope and collapseNew Orders:[facility] Telemetry, Ordered: 02/24/20Follow up:tele ov in 2 weeks. Functional Status Description No Information Available Mental Status Description No Information Available Referrals Refer to Reason for Referral Status Appt Date Julien Sheikh MD Scheduled 01/14/2020 [address] [place] [id number] [phone]
--- OUTSIDE RECORDS SUMMARY | 2020-03-04 10:26 | XMS REPORT | Continuity of Care Document ---
:1930 External Reference #:[id number] Author Name Martir Case M.D. (transmitted by agent of provider Jenny Oliver) Address [address] [place] [address] Care Team Providers Name Role Phone [facility] Care Team Information Roving Marker [place] - Physical Therapist Serenity Martin MD - Internal Care Team Information Roving Marker [phone] Medicine Bao Rodney MD - Cardiovascular Care Team Information [place] Disease Julien Sheikh MD - Gastroenterology Care Team Information Roving Marker [phone] Problems Active Problems Provider Date Edema of [...] pain Feraheme feraheme infusion 2doses D50.9 Bao Pierda 12/23/2019 - 510mg/17ML 510 mg 2 doses Kelsey Rodney 01/19/2020 Solution total first infusion followed by a second infusion in a week Eliquis 1 by mouth twice 60tabs I82.402 Bao Piedra 12/21/2019 - 5mg Tablets a day Kelsey Rodney 01/14/2020 Medications Administered in Office Medication SIG Qnty Indications Ordering Provider Date Triamcinolone (Kenalog) Gneo Clemens M.D. 12/07/2019 Injection Technetium TC 99M [...] CPT Code Status Date Vaccine Lot # [id number] Given 09/25/2019 Influenza Virus Vaccine, Quadrivalent, Split, Preservative Free 84624 Given 09/24/2018 Influenza Virus Vaccine, Quadrivalent, Split, Preservative Free 51447 Given 09/23/2017 Influenza Virus Vaccine, Quadrivalent, Split, [id number] Preservative Free 98469 Given 09/23/2017 Pneumococcal Conjugate Vaccine 13 Valent For [id number] Intramuscular Use Vital Signs Date Vital Result [...] H/L Range Note Date Stool Occult 02/25/2020 [facility] Stool SEE RESULT 1 Blood, Screen [address] [place] [address] Blood, [phone] Screen Inr/Protime 02/25/2020 [facility] Inr 1.20 High 0.82-1.[address] [place], [place] [phone] Laboratory 02/25/2020 [facility] Lactic Acid 4.9 mmol/L Critical 0.5-2.0 [address] [place] [address] [phone] Type & Screen 02/25/2020 [facility] Patient [place] [address] [phone] Antibody Screen NEGATIVE Comp Metabolic 02/25/2020 [facility] Sodium 136 mmol/L Normal 135-[address] [place] [address] [phone] Potassium 4.3 mmol/L Normal 3.5-5.0 Chloride 107 [...] Egfr 52.8 >60 4 Laboratory test 02/25/2020 [facility] Magnesium 1.9 mg/dL Normal 1.9-2.[address] [place] [address] [phone] Troponin-I (TnI) 0.26 ng/mL Critical high <0.03 5 TSH (Thyroid Stim Horm) 1.56 mcIU/mL Normal 0.34-5.60 CBC Auto 02/25/2020 [facility] White Blood 12.3 10^3/uL High 3.5-10.[address] [place] [address] [phone] Red Blood Count 3.13 10^6/uL Low 4.18-5.48 [...] Blood Cells % 0.1 Laboratory test 02/12/2020 [facility] C Reactive 22.69 mg/L High <8.[address] [place] [address] [phone] Creatine Kinase(CK) 3086 U/L High 10-223 Erythrocyte Sed Rate 19 mm/Hr Normal 0-19 Ferritin > 1500.0 ng/mL High 24-336 6 Urinalysis Profile 02/12/2020 [facility] Urine Color Yellow [address] [place] [address] [phone] Urine Appearance Clear Urine Specific [place] 1.020 Normal 1.010-1.030 Urine pH 6 Normal 5-9 Urine Urobilinogen Negative Negative Urine Ketones Negative Negative Urine Protein 1+(30 mg/dL) Abnormal Negative Urine Leukocytes Negative Negative Urine Blood Negative Negative Urine Nitrite Negative Negative Urine Bilirubin Negative Negative Urine Glucose Negative Negative CBC Auto 02/12/2020 [facility] White Blood 5.2 10^3/uL Normal 3.5-10.[address] [place] [address] [phone] Red Blood Count 5.52 10^6/uL High 4.18-5.48 [...] Blood Cells % 0.1 Comp Metabolic 02/12/2020 [facility] Sodium 138 mmol/L Normal 135-[address] [place] [address] [phone] Potassium 3.6 mmol/L Normal 3.5-5.0 Chloride 104 [...] Egfr 76.6 >60 7 Lipid Profile 02/12/2020 [facility] Triglycerides 128 mg/dL 8 (Trig/Chol/HDL) [address] [place] [address] [phone] Cholesterol 169 mg/dL 9 HDL Cholesterol 57.9 mg/dL 10 LDL Cholesterol 86 mg/dL 11 Laboratory test 02/12/2020 [facility] Creatine 3114 U/L High 10-[address] Kinase(CK) [place] [address] [phone] Comp Metabolic 02/12/2020 [facility] Sodium 137 Normal 135- [address] mmol/[place] [address] [phone] Potassium 3.4 mmol/L Low 3.5-5.0 Chloride 106 [...] >60 12 Influenza A & B 02/08/2020 [facility] Flu AB Disclaimer (SEE NOTE) [address] [place] [address] [phone] Influenza A Molecular Negative Negative Influenza B Molecular Negative Negative 14 Laboratory test 02/08/2020 [facility] C Reactive 12.59 mg/L High <8.[address] [place] [address] [phone] Erythrocyte Sed Rate 12 mm/Hr Normal 0-19 TSH (Thyroid Stim Horm) 1.88 mcIU/mL Normal 0.34-5.60 Comp Metabolic Panel 02/08/2020 [facility] Sodium 134 mmol/L Low 135-[address] [place] [address] [phone] Potassium 4.0 mmol/L Normal 3.5-5.0 Chloride 101 [...] Egfr 79.1 >60 15 Laboratory test 02/08/2020 [facility] Creatine 2680 U/L High 10-[address] Kinase(CK) [place] [address] [phone] CBC Auto Diff 02/08/2020 [facility] White Blood 5.5 Normal 3.5 -10.8 [address] [facility] Count 10^3/[place] [address] [phone] Red Blood Count 5.31 10^6/uL Normal 4.18-5.48 [...] Blood Cells % 0.1 Basic Metabolic 01/28/2020 [facility] Sodium 133 mmol/L Low 135-[address] [place] [address] [phone] Chloride 101 mmol/L Normal 101-111 Co2 Carbon Dioxide 28 mmol/L Normal 22-32 Glucose 81 mg/dL Normal 70-100 Blood Urea Nitrogen 17 mg/dL Normal 6-24 Creatinine 1.03 mg/dL Normal 0.67-1.17 BUN/Creatinine Ratio 16.5 Normal 8-20 Calcium 8.2 mg/dL Low 8.6-10.3 Egfr Non- 68.3 >60 Egfr 82.7 >60 16 Potassium 4.2 mmol/L Normal 3.5-5.0 Anion Gap 4 mmol/L Normal 2-11 Cath Panel 01/25/2020 [facility] Partial 28.1 seconds Normal 26.0-38.[address] [place] [address] [phone] CBC Auto 01/25/2020 [facility] White Blood 4.3 10^3/uL Normal 3.5-10.[address] [place] [address] [phone] Red Blood Count 5.07 10^6/uL Normal 4.18-5.48 [...] Red Blood Cells % 0.0 Inr/Protime 01/25/2020 [facility] Inr 0.99 Normal 0.82-1.[address] [place] [address] [phone] Basic Metabolic 01/25/2020 [facility] Sodium 134 mmol/L Low 135-145 Panel [address] [place] [address] [phone] Potassium 4.0 mmol/L Normal 3.5-5.0 Chloride 101 mmol/L Normal 101-111 Co2 Carbon Dioxide 27 mmol/L Normal 22-32 Anion Gap 6 mmol/L Normal 2-11 Glucose 104 mg/dL High 70-100 Blood Urea Nitrogen 26 mg/dL High 6-24 Creatinine 1.21 mg/dL High 0.67-1.17 BUN/Creatinine Ratio 21.5 High 8-20 Calcium 8.0 mg/dL Low 8.6-10.3 Egfr Non- 56.7 >60 Egfr 68.6 >60 18 Laboratory test 01/19/2020 [facility] Clotest SEE RESULT [address] [place] [address] [phone] Stool Occult 01/19/2020 [facility] Stool Occult SEE RESULT 20 Blood Diag [address] Blood, [place] [address] [phone] CBC No Diff 01/19/2020 [facility] White Blood 5.3 10^3/uL Normal 3.5-[address] Count 0.8 [place] [address] [phone] Red Blood Count 4.93 10^6/uL Normal 4.18-5.48 Hemoglobin 12.5 g/dL Low 14.0-18.0 Hematocrit 38 % Low 42-52 Mean Corpuscular Volume 78 fL Low 80-94 Mean Corpuscular Hemoglobin 25 pg Low 27-31 Mean Corpuscular HGB Conc 33 g/dL Normal 31-36 Red Cell Distribution Width 15 % Normal 10-15 Platelet Count 157 10^3/uL Normal 150-450 Mean Platelet Volume 9.0 fL Normal 7.4-10.4 Laboratory test 01/19/2020 [facility] B-Type 361 pg/mL High <= [address] [place] [address] Peptide BNP [phone] Comp Metabolic 01/19/2020 [facility] Sodium 135 Normal 135- [address] mmol/[place] [address] [phone] Potassium 3.9 mmol/L Normal 3.5-5.0 Chloride 101 [...] >60 21 Iron & Iron Binding 01/19/2020 [facility] Iron 34 g/dL Low 50-[address] [place] [address] [phone] Unsaturated Iron Binding < 161 g/dL Total Iron Binding Capacity 176 g/dL Low 250-450 Transferrin 126 mg/dL Low 203-362 % Iron Saturation 19 % Normal 15-55 Protein 01/19/2020 [facility] Total 5.2 Abnormal 6.3 - Electrophoresis [address] Protein(Pep) g/dL 7.9 [place] [address] [phone] Albumin 2.6 g/dL Abnormal 3.4-4.7 Alpha-1 Globulin 0.2 g/dL 0.1-0.3 Alpha-2 Globulin 0.9 g/dL 0.6-1.0 Beta Globulin 0.7 g/dL 0.7-1.2 Gamma Globulin 0.7 g/dL 0.6-1.6 Albumin/Globulin Ratio 1.01 Impression See Comment 22 Laboratory 01/19/2020 [facility] Erythropoietin 5.9 2.6 - 23 test finding [address] mIU/mL 18.5 [place] [address] [phone] Xray 01/14/2020 [facility] Chest PA & Lat 2 <pending> [address] [place] [address] [phone] Laboratory 01/14/2020 [facility] Ferritin 708.4 High 24-336 test finding [address] ng/[place] [address] [phone] CBC Auto Diff 12/23/2019 [facility] White Blood Count 5.5 Normal 3.5-10. [address] 10^3/uL 8 [place] [address] [phone] Red Blood Count 4.74 10^6/uL Normal 4.18-5.48 [...] Red Blood Cells % 0.0 Laboratory 12/23/2019 [facility] D Dimer 261 ng/mL High Less [address] [place] [address] [phone] Comp Metabolic 12/23/2019 [facility] Sodium 136 Normal 135- [address] mmol/[place] [address] [phone] Potassium 4.0 mmol/L Normal 3.5-5.0 Chloride 102 [...] >60 25 Iron & Iron Binding 12/23/2019 [facility] Iron 33 g/dL Low 50-[address] [place] [address] [phone] Unsaturated Iron Binding < 205 g/dL Total Iron Binding Capacity 220 g/dL Low 250-450 Transferrin 157 mg/dL Low 203-362 % Iron Saturation 15 % Normal 15-55 CBC Auto 11/23/2019 [facility] White Blood 4.2 10^3/uL Normal 3.5-10.[address] [place] [address] [phone] Red Blood Count 4.69 10^6/uL Normal 4.18-5.48 [...] Blood Cells % 0.0 Comp Metabolic 11/23/2019 [facility] Sodium 139 mmol/L Normal 135-[address] [place] [address] [phone] Potassium 3.8 mmol/L Normal 3.5-5.0 Chloride 107 [...] Egfr 64.3 >60 26 Laboratory test 09/04/2019 [facility] Surgical SEE RESULT 27, [address] [place] [place] [address] [phone] 1 SEE RESULT BELOW Name: BETO PEREZ : [address]: Akhil Núñez MD Acct: [id number] Unit: [id number] AGE: 89 Location: ED Re02/25/20 SEX: M Status: REG ER SPEC: [id number] DOMINGO: 02/25/20 [facility] [address]: Kamila Morin MD REQ: [id number] RECD: 02/25/20 STATUS: TUNDE MEJIA DR: Serenity Martin MD _ SOURCE: STOOL SPDESC: ORDERED: Occult Bl, Scn Procedure Result Reported Site Stool Occult Blood (1) Final 02/25/20- 0715 ML Stool Occult Blood Positive * ML - Main Lab . END OF REPORT DEPARTMENT OF PATHOLOGY, [address] [place] [address] Jeet Hall M.D. Director [facility] # [id number] 2 Standard intensity warfarin therapeutic range: 2.0-3.0 High intensity warfarin therapeutic range: 2.5-3.5 3 Critical Result LACT:4.9 Called to [id number] at: 04:21:22 by:[id number] Read back by:[id number] [facility] Severe Sepsis and Septic Shock Management Bundle [...] (or dialysis) 5 Result TnIDx:0.26 Called to [id number] at: 04:38:06 by:[id number] Read back by: [id number] Troponin-I testing on Plasma Separator Tubes (PST) has a known false positive rate of 0.20-0.40%. All positive troponins reflex immediately to secondary confirmatory testing. Using the [employer] DxI 800 Access Immunoassay systems, the 99th percentile upper reference limit was demonstrated to be < 0.03 ng/mL. 6 DO THIS IN ABOUT 3-5 MONTHS Copy Result to: BAO RODNEY ([id number]) 7 Because ethnic data is not always [...] reduce sensitivity of test. Refer to the [facility] Test Catalog for collection information: [email or web address] As with all diagnostic procedures, the laboratory results obtained should be used in conjunction with other clinical information available to the physician, including confirmation by another method, as applicable. 14 Art History Professor: [id number] 15 Because ethnic data is not always [...] [address]: Julien Sheikh MD Acct: [id number] Unit: [id number] AGE: 89 Location: ENDO Re01/19/20 SEX: M Status: REG REF SPEC: [id number] DOMINGO: 01/19/20-[address] [facility] [address]: Julien Sheikh MD REQ: [id number] RECD: 01/19/20-151 STATUS: TUNDE MEJIA DR: Serenity Martin MD _ SOURCE: GEENA ANTRUM SPDESC: ORDERED: Clotest Procedure Result Reported Site Clotest Final 01/20/20- 942 ML Clotest Negative * ML - Main Lab . END OF REPORT DEPARTMENT OF PATHOLOGY, [address] [place] [address] Jeet Hall M.D. Director [facility] # [id number] 20 SEE RESULT BELOW Name: BETO PEREZ : [address]: Julien Sheikh MD Acct: [id number] Unit: [id number] AGE: 89 Location: ENDO Re01/19/20 SEX: M Status: REG REF SPEC: [id number] DOMINGO: 01/19/20-[address] [facility] [address]: Julien Sheikh MD REQ: [id number] RECD: 01/19/20152 STATUS: COMP OTHR DR: Serenity Martin MD _ SOURCE: STOOL SPDESC: ORDERED: Occult Bl, Diag Procedure Result Reported Site Stool Occult Blood (1) Final 01/19/20- 1535 ML Stool Occult Blood Negative Collection Date (1) 01/19/20 * ML - Main Lab . END OF REPORT DEPARTMENT OF PATHOLOGY, [address] [place] [address] Jeet Hall M.D. Director [facility] # [id number] 21 Because ethnic data is not always [...] protein on serum electrophoresis. Test Performed by: [place] [address] Outside Cutter: Norberto Cutler M.D. Ph.D.; CLIA# [id number] 23 Test Performed by: [facility] [place] [address] Outside Cutter: Norberto Cutler M.D. Ph.D.; CLIA# [id number] 24 Please note: The following may produce [...] 5 Kidney failure <15 (or dialysis) 27 [id number] SEE RESULT BELOW Name: BETO PEREZ : [address]: Oj Quintero MD Acct: [id number] Unit: [id number] AGE: 89 Location: [facility] Re09/04/19 SEX: M Status: REG REF SPEC: [id number] DOMINGO: 09/04/[address] [facility] [address]: Oj Quintero MD REQ: [id number] RECD: 09/04/19 STATUS: MANPREET MEJIA DR: Serenity Hanson MD _ ORDERED: LEVEL 4 COMMENTS: [id number] FINAL DIAGNOSIS Skin, right mid forehead, excision: -- Scar, excised. -- No evidence of residual basal cell carcinoma. COMMENT: The previous lesion at this site ([id number]) has been completely excised. CLINICAL HISTORY See [facility] [id number] PRE-OPERATIVE DIAGNOSIS Basal cell carcinoma, suture lopez 12:00 medial apex margin GROSS DESCRIPTION The specimen is received in formalin labeled, Excision Basal Cell Carcinoma Right Mid Forehead, Suture Lopez 12:00 Medial [place] Margin, and consists of a 3.0 x [...] 1103 END OF REPORT DEPARTMENT OF PATHOLOGY, [address] [place] [address] Jeet Hall M.D. Director [facility] # [id number] Procedures Date Code Description Status 02/24/2020 70468 Echocardiogram, Limited Study Completed 02/24/2020 16574 Echocardiogram, Limited Study Completed 02/24/2020 00602 EKG Tracing & Interpretation Completed 01/28/2020 14005 Cath PLMT&NJX L Ventriculog Img S&I Completed 01/20/2020 08689 EKG Tracing & Interpretation Completed 01/19/2020 91847 Endoscopy Upper GI Biopsy Completed 01/11/2020 88593 ECHO Transthoracic, Real-Time 2D With Doppler And Color Completed Flow 01/11/2020 06255 ECHO Transthoracic, Real-Time 2D With Doppler And Color Completed Flow 12/21/2019 78502 EKG Tracing & Interpretation Completed 12/07/2019 98690 Inject/Drain Joint/Bursa Major W/O US Completed 12/15/2013 83031437 Colonoscopy Completed 10/21/2007 63542738 Colonoscopy Completed 02/18/2001 47204553 Colonoscopy Completed Medical Devices Description No Information Available Encounters Type Date Location Provider Dx Diagnosis Office Visit 02/19/2020 [facility] Internal Serenity Martin M79.10 Myalgia, 2:00p Gissel Camargo M.D. unspecified site K59.00 Constipation, unspecified Office Visit 02/15/2020 11:36a [facility] Jorge Mcmahan M62.82 [facility],diana Case M.D. Hospitalists I10 Essential (primary) hypertension Office Visit 02/13/2020 11:34a [facility] Jorge Mcmahan M62.82 Rhabdomyolysis Assoc,diana Case M.D. Hospitalists I10 Essential (primary) hypertension Office Visit 02/08/2020 9:00a [facility] Internal Serenity M79.10 Myalgia, Gissel Martin M.D. unspecified site Mary Jo J06.9 Acute upper respiratory infection, unspecified R19.7 Diarrhea, unspecified Office Visit 02/02/2020 Sourav Blake 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, 3:00p Cardiology Of MD Trudi, unspecified Pulmonologist AT [facility] Office Visit 01/20/2020 Zoya Piedra D50.9 Iron deficiency 10:30a Cardiology Kelsey Rodney anemia, unspecified R60.0 Localized edema 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, unspecified I10 Essential (primary) hypertension I50.22 Chronic systolic (congestive) heart failure I49.5 Sick sinus syndrome I49.3 Ventricular premature depolarization I45.19 Other right bundle-branch block I45.2 Bifascicular block R94.31 Abnormal electrocardiogram [ECG] [EKG] Office Visit 01/14/2020 [facility] Gastroenterology Vanessa D50.9 Iron deficiency 1:10p Alison anemia, NILDA Hunter unspecified R60.0 Localized edema 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, unspecified Office Visit 12/31/2019 8:40a [facility] Internal Serenity R60.0 Localized edema Gissel Martin M.D. M25.562 Pain in left knee Office Visit 12/25/2019 9:15a [facility] Geno Clemens, M25.562 Pain in left at [facility].D. knee M25.462 Effusion, left knee M17.12 Unilateral primary osteoarthritis, left knee Office Visit 12/21/2019 [place] Bao MarkhamRenita 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, 3:20p Cardiology Of Kelsey Rodney unspecified Pulmonologist I10 Essential (primary) hypertension D64.9 Anemia, unspecified I49.3 Ventricular premature depolarization R60.0 Localized edema I82.402 Acute embolism and thombos unsp deep veins of l low extrem I45.89 Other specified conduction disorders R94.31 Abnormal electrocardiogram [ECG] [EKG] Office Visit 12/07/2019 9:00a [facility] Geno Clemens, M25.562 [facility] M25.462 Effusion, left knee M17.12 Unilateral primary osteoarthritis, left knee M54.32 Sciatica, left side Assessments Date Code Description Provider 02/24/2020 R55 Syncope and collapse [place] [facility] Schedule 02/24/2020 M79.10 Myalgia, unspecified site [...] Alexandrea Brush MD, [facility] 01/28/2020 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, unspecified Shimon Clifford M.D., [facility], [facility] 01/20/2020 D50.9 Iron deficiency anemia, unspecified Bao Rodney M.D. 01/20/2020 R60.0 Localized edema Bao Rodney M.D. 01/20/2020 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, unspecified Bao Rodney M.D. 01/20/2020 I10 Essential (primary) hypertension Bao Rodney M.D. 01/20/2020 I50.22 Chronic systolic (congestive) heart Bao Rodney M.D. failure 01/20/2020 I49.5 Sick sinus syndrome Bao Rodney M.D. 01/20/2020 I49.3 Ventricular premature depolarization Boa Rodney M.D. 01/20/2020 I45.19 Other right bundle-branch block Bao Rodney M.D. 01/20/2020 I45.2 Bifascicular block Bao Rodney M.D. 01/20/2020 R94.31 Abnormal electrocardiogram [ECG] Bao Rodney M.D. [EKG] 01/19/2020 K29.70 Gastritis, unspecified, without Julien Sheikh MD bleeding 01/19/2020 D50.9 Iron deficiency anemia, unspecified Julien Sheikh MD 01/14/2020 D50.9 Iron deficiency anemia, unspecified Vanessa Hunter , [employer] 01/14/2020 R60.0 Localized edema Vanessa Hunter, [employer] 01/14/2020 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, unspecified Vanessa Hunter, NILDA 01/11/2020 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, unspecified Bao Rodney M.D. 01/11/2020 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, unspecified [place] [facility] Schedule 12/31/2019 R60.0 Localized edema Serenity [...] 8:45 am - Geno Clemens M.D. at [facility] at [id number]/24/2020 - Bao Rodney M.D.M79.10 Myalgia, unspecified siteM62.82 DadarbkdkueksuO74 Essential (primary) mofoyxvwmvysE15.9 Cardiomyopathy, unspecifiedRecommendations:take torsemide 10 mg on 3.26.20 am and call 3.27 to report on urination, change in weight and changein edema.D50.9 Iron deficiency anemia, [id number] Syncope and collapseNew Orders:[facility] Tele[facility], Ordered: 02/24/20Follow up:tele ov in 2 weeks. Functional Status Description No Information Available Mental Status Description No Information Available Referrals Refer to Dr Reason for Referral Status Appt Date Julien Sheikh MD Scheduled 01/14/2020 [address] [place] [id number] [phone]
--- OUTSIDE RECORDS SUMMARY | 2020-03-04 10:26 | XMS REPORT | Continuity of Care Document ---
:1930 External Reference #:[id number] Author Name Bernie Lozoya MD (transmitted by agent of provider Arcelia Orlando) Address [address], [place] [address] Care Team Providers Name Role Phone [facility] Care Team Information Agency Sales Development Associate [facility] - Physical Therapist Serenity Martin MD - Internal Care Team Information Agency Sales Development Associate Medicine Bao Rodney MD - Cardiovascular Care Team Information Agency Sales Development Associate Disease Julien Sheikh MD - Gastroenterology Care Team Information Agency Sales Development Associate [phone] Problems Active Problems Provider Date Edema of [...] Injection Technetium TC 99M Golden Champagne, DO [facility] 04/20/2019 Tetrofosmin, Per Unit Dose Up To 40 Millicuries Injection Technetium TC 99M Golden Champagne, DO [facility] 04/20/2019 Tetrofosmin, Per Unit Dose Up [...] CPT Code Status Date Vaccine Lot # [id number] Given 09/25/2019 Influenza Virus Vaccine, Quadrivalent, Split, Preservative Free 32390 Given 09/24/2018 Influenza Virus Vaccine, Quadrivalent, Split, Preservative Free 06741 Given 09/23/2017 Influenza Virus Vaccine, Quadrivalent, Split, [id number] Preservative Free 68988 Given 09/23/2017 Pneumococcal Conjugate Vaccine 13 Valent For [id number] Intramuscular Use Vital Signs Date Vital Result [...] H/L Range Note Date Stool Occult 02/25/2020 [facility] Stool SEE RESULT 1 Blood, Screen [address] [place] [address] Blood, [phone] Screen Inr/Protime 02/25/2020 [facility] Inr 1.20 High 0.82-1.[address] [place] [address] [phone] Laboratory 02/25/2020 [facility] Lactic Acid 4.9 mmol/L Critical 0.5-2.0 [address] [place] [address] [phone] Type & Screen 02/25/2020 [facility] Patient [place] [address] [phone] Antibody Screen NEGATIVE Comp Metabolic 02/25/2020 [facility] Sodium 136 mmol/L Normal 135-[address] [place] [address] [phone] Potassium 4.3 mmol/L Normal 3.5-5.0 Chloride 107 [...] Egfr 52.8 >60 4 Laboratory test 02/25/2020 [facility] Magnesium 1.9 mg/dL Normal 1.9-2.[address] [place] [address] [phone] Troponin-I (TnI) 0.26 ng/mL Critical high <0.03 5 TSH (Thyroid Stim Horm) 1.56 mcIU/mL Normal 0.34-5.60 CBC Auto 02/25/2020 [facility] White Blood 12.3 10^3/uL High 3.5-10.[address] [place] [address] [phone] Red Blood Count 3.13 10^6/uL Low 4.18-5.48 [...] Blood Cells % 0.1 Laboratory test 02/25/2020 [facility] Packed Cells SEE RESULTS [address] BELO <[place] [address] NOTE> [phone] Laboratory test 02/12/2020 [facility] C Reactive 22.69 mg/L High <8.[address] [place] [address] [phone] Creatine Kinase(CK) 3086 U/L High 10-223 Erythrocyte Sed Rate 19 mm/Hr Normal 0-19 Ferritin > 1500.0 ng/mL High 24-336 7 Urinalysis Profile 02/12/2020 [facility] Urine Color Yellow [address] [place], [place] [phone] [phone] Urine Appearance Clear Urine Specific [place] 1.020 Normal 1.010-1.030 Urine pH 6 Normal 5-9 Urine Urobilinogen Negative Negative Urine Ketones Negative Negative Urine Protein 1+(30 mg/dL) Abnormal Negative Urine Leukocytes Negative Negative Urine Blood Negative Negative Urine Nitrite Negative Negative Urine Bilirubin Negative Negative Urine Glucose Negative Negative CBC Auto 02/12/2020 [facility] White Blood 5.2 10^3/uL Normal 3.5-10.[address] [place] [address] [phone] Red Blood Count 5.52 10^6/uL High 4.18-5.48 [...] Blood Cells % 0.1 Comp Metabolic 02/12/2020 [facility] Sodium 138 mmol/L Normal 135-[address] [place] [address] [phone] Potassium 3.6 mmol/L Normal 3.5-5.0 Chloride 104 [...] Egfr 76.6 >60 8 Lipid Profile 02/12/2020 [facility] Triglycerides 128 mg/dL 9 (Trig/Chol/HDL) [address] [place] [address] [phone] Cholesterol 169 mg/dL 10 HDL Cholesterol 57.9 mg/dL 11 LDL Cholesterol 86 mg/dL 12 Laboratory test 02/12/2020 [facility] Creatine 3114 U/L High 10-[address] Kinase(CK) [place] [address] [phone] Comp Metabolic 02/12/2020 [facility] Sodium 137 Normal 135- [address] mmol/[place] [address] [phone] Potassium 3.4 mmol/L Low 3.5-5.0 Chloride 106 [...] >60 13 Influenza A & B 02/08/2020 [facility] Flu AB Disclaimer (SEE NOTE) [address] [place] [address] [phone] Influenza A Molecular Negative Negative Influenza B Molecular Negative Negative 15 Laboratory test 02/08/2020 [facility] C Reactive 12.59 mg/L High <8.[address] [place] [address] [phone] Erythrocyte Sed Rate 12 mm/Hr Normal 0-19 TSH (Thyroid Stim Horm) 1.88 mcIU/mL Normal 0.34-5.60 Comp Metabolic Panel 02/08/2020 [facility] Sodium 134 mmol/L Low 135-[address] [place] [address] [phone] Potassium 4.0 mmol/L Normal 3.5-5.0 Chloride 101 [...] Egfr 79.1 >60 16 Laboratory test 02/08/2020 [facility] Creatine 2680 U/L High 10-[address] Kinase(CK) [place] [address] [phone] CBC Auto Diff 02/08/2020 [facility] White Blood 5.5 Normal 3.5 -10.[address] Count 10^3/[place] [address] [phone] Red Blood Count 5.31 10^6/uL Normal 4.18-5.48 [...] Blood Cells % 0.1 Basic Metabolic 01/28/2020 [facility] Sodium 133 mmol/L Low 135-[address] [place] [address] [phone] Chloride 101 mmol/L Normal 101-111 Co2 Carbon Dioxide 28 mmol/L Normal 22-32 Glucose 81 mg/dL Normal 70-100 Blood Urea Nitrogen 17 mg/dL Normal 6-24 Creatinine 1.03 mg/dL Normal 0.67-1.17 BUN/Creatinine Ratio 16.5 Normal 8-20 Calcium 8.2 mg/dL Low 8.6-10.3 Egfr Non- 68.3 >60 Egfr 82.7 >60 17 Potassium 4.2 mmol/L Normal 3.5-5.0 Anion Gap 4 mmol/L Normal 2-11 Cath Panel 01/25/2020 [facility] Partial 28.1 seconds Normal 26.0-38.[address] [place] [address] [phone] CBC Auto 01/25/2020 [facility] White Blood 4.3 10^3/uL Normal 3.5-10.[address] Count [place], [place] [address] [phone] Red Blood Count 5.07 10^6/uL Normal 4.18-5.48 [...] Red Blood Cells % 0.0 Inr/Protime 01/25/2020 [facility] Inr 0.99 Normal 0.82-1.[address] [place] [address] [phone] Basic Metabolic 01/25/2020 [facility] Sodium 134 mmol/L Low 135-[address] [place] [address] [phone] Potassium 4.0 mmol/L Normal 3.5-5.0 Chloride 101 mmol/L Normal 101-111 Co2 Carbon Dioxide 27 mmol/L Normal 22-32 Anion Gap 6 mmol/L Normal 2-11 Glucose 104 mg/dL High 70-100 Blood Urea Nitrogen 26 mg/dL High 6-24 Creatinine 1.21 mg/dL High 0.67-1.17 BUN/Creatinine Ratio 21.5 High 8-20 Calcium 8.0 mg/dL Low 8.6-10.3 Egfr Non- 56.7 >60 Egfr 68.6 >60 19 Laboratory test 01/19/2020 [facility] Clotest SEE RESULT [address] [place] [address] [phone] Stool Occult 01/19/2020 [facility] Stool Occult SEE RESULT 21 Blood Diag [address] Blood, Diag [place], [place] [id number] [phone] CBC No Diff 01/19/2020 [facility] White Blood 5.3 10^3/uL Normal 3.5-[address] Count 0.8 [place] [address] [phone] Red Blood Count 4.93 10^6/uL Normal 4.18-5.48 Hemoglobin 12.5 g/dL Low 14.0-18.0 Hematocrit 38 % Low 42-52 Mean Corpuscular Volume 78 fL Low 80-94 Mean Corpuscular Hemoglobin 25 pg Low 27-31 Mean Corpuscular HGB Conc 33 g/dL Normal 31-36 Red Cell Distribution Width 15 % Normal 10-15 Platelet Count 157 10^3/uL Normal 150-450 Mean Platelet Volume 9.0 fL Normal 7.4-10.4 Laboratory test 01/19/2020 [facility] B-Type 361 pg/mL High <= [address] [place] [address] Peptide BNP [phone] Comp Metabolic 01/19/2020 [facility] Sodium 135 Normal 135- [address] mmol/[place] [address] [phone] Potassium 3.9 mmol/L Normal 3.5-5.0 Chloride 101 [...] >60 22 Iron & Iron Binding 01/19/2020 [facility] Iron 34 g/dL Low 50-[address] [place] [address] [phone] Unsaturated Iron Binding < 161 g/dL Total Iron Binding Capacity 176 g/dL Low 250-450 Transferrin 126 mg/dL Low 203-362 % Iron Saturation 19 % Normal 15-55 Protein 01/19/2020 [facility] Total 5.2 Abnormal 6.3 - Electrophoresis Access Mobile [facility] Protein(Pep) g/dL 7.9 [place], [place] [address] [phone] Albumin 2.6 g/dL Abnormal 3.4-4.7 Alpha-1 Globulin 0.2 g/dL 0.1-0.3 Alpha-2 Globulin 0.9 g/dL 0.6-1.0 Beta Globulin 0.7 g/dL 0.7-1.2 Gamma Globulin 0.7 g/dL 0.6-1.6 Albumin/Globulin Ratio 1.01 Impression See Comment 23 Laboratory 01/19/2020 [facility] Erythropoietin 5.9 2.6 - 24 test finding [facility] [address] mIU/mL 18.5 [place] [address] [phone] Xray 01/14/2020 [facility] Chest PA & Lat 2 <pending> [facility] [place] [address] [phone] Laboratory 01/14/2020 [facility] Ferritin 708.4 High 24-336 test finding [facility] [address] ng/[place] [address] [phone] CBC Auto Diff 12/23/2019 [facility] White Blood Count 5.5 Normal 3.5-10. [address] 10^3/uL 8 [place] [address] [phone] Red Blood Count 4.74 10^6/uL Normal 4.18-5.48 [...] Red Blood Cells % 0.0 Laboratory 12/23/2019 [facility] D Dimer 261 ng/mL High Less 25 test finding [address] [place] [address] [phone] Comp Metabolic 12/23/2019 [facility] Sodium 136 Normal 135- [address] mmol/[place] [address] [phone] Potassium 4.0 mmol/L Normal 3.5-5.0 Chloride 102 [...] >60 26 Iron & Iron Binding 12/23/2019 [facility] Iron 33 g/dL Low 50-[address] [place] [address] [phone] Unsaturated Iron Binding < 205 g/dL Total Iron Binding Capacity 220 g/dL Low 250-450 Transferrin 157 mg/dL Low 203-362 % Iron Saturation 15 % Normal 15-55 CBC Auto 11/23/2019 [facility] White Blood 4.2 10^3/uL Normal 3.5-10.[address] [place] [address] [phone] Red Blood Count 4.69 10^6/uL Normal 4.18-5.48 [...] Blood Cells % 0.0 Comp Metabolic 11/23/2019 [facility] Sodium 139 mmol/L Normal 135-[address] [place] [address] [phone] Potassium 3.8 mmol/L Normal 3.5-5.0 Chloride 107 [...] Egfr 64.3 >60 27 Laboratory test 09/04/2019 [facility] Surgical SEE RESULT 28, [address] [place] [address] [phone] 1 SEE RESULT BELOW Name: BETO PEREZ : [address]: Akhil Núñez MD Acct: [id number] Unit: [id number] AGE: 89 Location: ED Re02/25/20 SEX: M Status: REG ER SPEC: [id number] DOMINGO: 02/25/20-620 [facility] DR: Kamila Morin MD REQ: [id number] RECD: 02/25/20 STATUS: COMP [place] DR: Serenity Martin MD _ SOURCE: STOOL SPDESC: ORDERED: Occult Bl, Scn Procedure Result Reported Site Stool Occult Blood (1) Final 02/25/20- 0715 ML Stool Occult Blood Positive * ML - Main Lab . END OF REPORT DEPARTMENT OF PATHOLOGY, [address] [place] [address] Jeet Hall M.D. Director [facility] # [id number] 2 Standard intensity warfarin therapeutic range: 2.0-3.0 High intensity warfarin therapeutic range: 2.5-3.5 3 Critical Result LACT:4.9 Called to [id number] at: 04:21:22 by:[id number] Read back by:[id number] [facility] Severe Sepsis and Septic Shock Management Bundle [...] (or dialysis) 5 Result TnIDx:0.26 Called to [id number] at: 04:38:06 by:[id number] Read back by: LIZ Troponin-I testing on Plasma Separator Tubes (PST) has a known false positive rate of 0.20-0.40%. All positive troponins reflex immediately to secondary confirmatory testing. Using the [employer] DxI 800 Access Immunoassay systems, the 99th percentile upper reference limit was demonstrated to be < 0.03 ng/mL. 6 SEE RESULTS BELOW [id number] OP PC TRANSFUSED 02/25/20 0550 [id number] OP PC TRANSFUSED 02/25/20 1256 7 DO THIS IN ABOUT 3-5 MONTHS Copy Result to: BAO RODNEY ([id number]) 8 Because ethnic data is not always [...] reduce sensitivity of test. Refer to the [facility] Test Catalog for collection information: [email or web address] As with all diagnostic procedures, the laboratory results obtained should be used in conjunction with other clinical information available to the physician, including confirmation by another method, as applicable. 15 Primary Health Organisation Manager: [id number] 16 Because ethnic data is not always [...] (or dialysis) 20 SEE RESULT BELOW Name: AARTI PEREZSCO Rashi : [address]: Julien Sheikh MD Acct: [id number] Unit: [id number] AGE: 89 Location: [facility] Re01/19/20 SEX: M Status: REG REF SPEC: [id number] DOMINGO: 01/19/20-1306 [facility] DR: Julien Sheikh MD REQ: [id number] RECD: 01/19/20-0728 STATUS: COMP [facility] DR: Serenity Martin MD _ SOURCE: GAS ANTRUM SPDESC: ORDERED: Clotest Procedure Result Reported Site Clotest Final 01/20/20- 0943 ML Clotest Negative * ML - Main Lab . END OF REPORT DEPARTMENT OF PATHOLOGY, [address] [place] [address] Jeet Hall M.D. Director [facility] # [id number] 21 SEE RESULT BELOW Name: BETO PEREZ : [address]: Julien Sheikh MD Acct: [id number] Unit: [id number] AGE: 89 Location: ENDO Re01/19/20 SEX: M Status: REG REF SPEC: [id number] DOMINGO: 01/19/20-1306 [facility] DR: Julien Sheikh MD REQ: [id number] RECD: 01/19/20 STATUS: TUNDE MEJIA DR: Serenity Martin MD _ SOURCE: STOOL SPDESC: ORDERED: Occult Bl, Diag Procedure Result Reported Site Stool Occult Blood (1) Final 01/19/20- 1535 ML Stool Occult Blood Negative Collection Date (1) 01/19/20 * ML - Main Lab . END OF REPORT DEPARTMENT OF PATHOLOGY, [address] [place] [address] Jeet Hall M.D. Director [facility] # [id number] 22 Because ethnic data is not always [...] protein on serum electrophoresis. Test Performed by: [place] [address] User Interface Designer: Norberto Cutler M.D. Ph.D.; CLIA# [id number] 24 Test Performed by: [place] [address] User Interface Designer: Norberto Cutler M.D. Ph.D.; CLIA# [id number] 25 Please note: The following may produce [...] 5 Kidney failure <15 (or dialysis) 28 [id number] 29 SEE RESULT BELOW Name: BETO PEREZ : [address]: Oj Quintero MD Acct: [id number] Unit: [id number] AGE: 89 Location: [facility] Re09/04/19 SEX: M Status: REG REF SPEC: [id number] DOMINGO: 09/04/198 [facility] DR: Oj Quintero MD REQ: [id number] RECD: 09/04/198918 STATUS: MANPREET MEJIA DR: Serenity Hanson MD _ ORDERED: LEVEL 4 COMMENTS: [id number] FINAL DIAGNOSIS Skin, right mid forehead, excision: -- Scar, excised. -- No evidence of residual basal cell carcinoma. COMMENT: The previous lesion at this site ([id number]) has been completely excised. CLINICAL HISTORY See [facility] [id number] PRE-OPERATIVE DIAGNOSIS Basal cell carcinoma, suture lopez 12:00 medial apex margin GROSS DESCRIPTION The specimen is received in formalin labeled, Excision Basal Cell Carcinoma Right Mid Forehead, Suture Lopez 12:00 Medial Randolph Margin, and consists of a 3.0 x [...] 1103 END OF REPORT DEPARTMENT OF PATHOLOGY, [address] [place] [address] Jeet Hall M.D. Director [facility] # [id number] Procedures Date Code Description Status 02/24/2020 14430 Echocardiogram, Limited Study Completed 02/24/2020 52214 Echocardiogram, Limited Study Completed 02/24/2020 56544 Echocardiogram, Limited Study Completed 02/24/2020 81195 EKG Tracing & Interpretation Completed 01/28/2020 54932 Cath PLMT&NJX L Ventriculog Img S&I Completed 01/20/2020 85645 EKG Tracing & Interpretation Completed 01/19/2020 19108 Endoscopy Upper GI Biopsy Completed 01/11/2020 53477 ECHO Transthoracic, Real-Time 2D With Doppler And Color Completed Flow 01/11/2020 99942 ECHO Transthoracic, Real-Time 2D With Doppler And Color Completed Flow 12/21/2019 52228 EKG Tracing & Interpretation Completed 12/07/2019 31362 Inject/Drain Joint/Bursa Major W/O US Completed 12/15/2013 05169515 Colonoscopy Completed 10/21/2007 60236857 Colonoscopy Completed 02/18/2001 35434873 Colonoscopy Completed Medical Devices Description No Information Available Encounters Type Date Location Provider Dx Diagnosis Office Visit 02/25/2020 Surgical Bernie Lozoya MD K63.1 Perforation of 7:00a [facility] intestine (nontraumatic) Office Visit 02/19/2020 Marketing Manager Internal Yefri Guevara.10 Myalgia, 2:00p Medicine - Mary Jo Cole unspecified site K59.00 Constipation, unspecified Office Visit 02/17/2020 11:38a [facility] Dulce M62.82 Rhabdomyolysis Assoc,pc Matt Andrews Hospitalists I25.5 Ischemic cardiomyopathy I10 Essential (primary) hypertension Office Visit 02/16/2020 11:37a [facility] Marisa Lira M62.82 Rhabdomyolysis Assoc,diana NRenitaPRenita Hospitalists I10 Essential (primary) hypertension I25.5 Ischemic cardiomyopathy Office Visit 02/15/2020 11:36a [facility] Martir M62.82 Rhabdomyolysis Assoc,diana Case M.D. Hospitalists I10 Essential (primary) hypertension Office Visit 02/13/2020 11:34a [facility] Martir M62.82 Rhabdomyolysis Assoc,diana Case M.D. Hospitalists I10 Essential (primary) hypertension Office Visit 02/08/2020 9:00a [facility] Andrés Benton MTaylor.10 Myalgia, Gissel Martin M.D. unspecified site Ccmob J06.9 Acute upper respiratory infection, unspecified R19.7 Diarrhea, unspecified Office Visit 02/02/2020 Sourav Blake 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, 3:00p Cardiology Of MD Trudi, unspecified Marketing Manager AT [facility], [facility] Office Visit 01/20/2020 Zoya Gandarahan F. D50.9 Iron deficiency 10:30a Cardiology Kelsey Rodney anemia, unspecified R60.0 Localized edema 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, unspecified I10 Essential (primary) hypertension I50.22 Chronic systolic (congestive) heart failure I49.5 Sick sinus syndrome I49.3 Ventricular premature depolarization I45.19 Other right bundle-branch block I45.2 Bifascicular block R94.31 Abnormal electrocardiogram [ECG] [EKG] Office Visit 01/14/2020 [facility] Gastroenterology Vanessa D50.9 Iron deficiency 1:10p Alison anemia, Hunter, HABILITATION SPECIALIST unspecified R60.0 Localized edema 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, unspecified Office Visit 12/31/2019 8:40a [facility] Internal Serenity R60.0 Localized edema Medicine - Mary Jo Martin M.D. M25.562 Pain in left knee Office Visit 12/25/2019 9:15a [facility] Geno Clemens, M25.562 Pain in left at [facility].D knee M25.462 Effusion, left knee M17.12 Unilateral primary osteoarthritis, left knee Office Visit 12/21/2019 [facility] Bao Piedra 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, 3:20p Cardiology Of Kelsey Rodney unspecified [facility] I10 Essential (primary) hypertension D64.9 Anemia, unspecified I49.3 Ventricular premature depolarization R60.0 Localized edema I82.402 Acute embolism and thombos unsp deep veins of l low extrem I45.89 Other specified conduction disorders R94.31 Abnormal electrocardiogram [ECG] [EKG] Office Visit 12/07/2019 9:00a [facility] Geno Clemens, M25.562 Pain in left at [facility] M.D. knee M25.462 Effusion, left knee M17.12 Unilateral primary osteoarthritis, left knee M54.32 Sciatica, left side Assessments Date Code Description Provider 02/25/2020 K63.1 Perforation of intestine Bernie Lozoya MD (nontraumatic) 02/24/2020 R55 Syncope and collapse Bao Rodney M.D. 02/24/2020 R55 Syncope and collapse [place] [facility] Schedule 02/24/2020 M79.10 Myalgia, unspecified site Bao Rodney M.D. 02/24/2020 R60.0 Localized edema [place] [facility] Schedule 02/24/2020 M62.82 Rhabdomyolysis Bao Rodney [...] unspecified Serenity Martin M.D. 02/18/2020 M62.82 Rhabdomyolysis Favian Heard.O. 02/18/2020 I10 Essential (primary) hypertension Favian Heard.O. 02/18/2020 R74.8 Abnormal levels of other serum Dulce Andrews D.O. enzymes 02/17/2020 M62.82 Rhabdomyolysis Favian Heard.O. 02/17/2020 I25.5 Ischemic cardiomyopathy Favian Heard.O. 02/17/2020 I10 Essential (primary) hypertension Ruby HeardO. [...] 02/02/2020 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, unspecified Alexandrea Brush MD, [facility], [facility] 01/28/2020 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, unspecified Shimon Clifford M.D., [facility], [facility] 01/20/2020 D50.9 Iron deficiency anemia, [...] Iron deficiency anemia, unspecified Vanessa Hunter , HABILITATION SPECIALIST 01/14/2020 R60.0 Localized edema Vanessa Hunter, HABILITATION SPECIALIST 01/14/2020 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, unspecified Vanessa Hunter, HABILITATION SPECIALIST 01/11/2020 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, unspecified Bao Rodney M.D. 01/11/2020 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, unspecified [place] [facility] [...] 8:45 am - Geno Clemens M.D. at [facility] at [id number]/14/2020 - Vanessa Hunter, NPD50.9 Iron deficiency anemia, mihefwmtgqqY34.0 Localized kumewB88.9 Cardiomyopathy, unspecified Functional Status Description No Information Available Mental Status Description No Information Available Referrals Refer to Dr Reason for Referral Status Appt Date Julien Sheikh MD Scheduled 01/14/2020 [address] [place] [address] [phone]
--- OUTSIDE RECORDS SUMMARY | 2020-03-04 10:26 | XMS REPORT | Continuity of Care Document ---
:1930 External Reference #:[id number] Author Name Ivonne Thakkar M.D. (transmitted by agent of provider Alison Mendoza) Address [address] [place] [address] Care Team Providers Name Role Phone [facility] Care Team Information Harmonica Maker [phone] [place] - Physical Therapist Serenity Martin MD - Internal Care Team Information Harmonica Maker Medicine Bao Rodney MD - Cardiovascular Care Team Information Harmonica Maker Disease Julien Sheikh MD - Gastroenterology Care Team Information Harmonica Maker Problems Active Problems Provider Date Edema of [...] Injection Technetium TC 99M Golden Champagne, DO [facility] 04/20/2019 Tetrofosmin, Per Unit Dose Up To 40 Millicuries Injection Technetium TC 99M Golden Champagne, DO [facility] 04/20/2019 Tetrofosmin, Per Unit Dose [...] CPT Code Status Date Vaccine Lot # [id number] Given 09/25/2019 Influenza Virus Vaccine, Quadrivalent, Split, Preservative Free 48665 Given 09/24/2018 Influenza Virus Vaccine, Quadrivalent, Split, Preservative Free 96681 Given 09/23/2017 Influenza Virus Vaccine, Quadrivalent, Split, [id number] Preservative Free 41573 Given 09/23/2017 Pneumococcal Conjugate Vaccine 13 Valent For [id number] Intramuscular Use Vital Signs Date Vital Result [...] H/L Range Note Date Stool Occult 02/25/2020 [facility] Stool SEE RESULT 1 Blood, Screen [address] [place] [address] Blood, [phone] Screen Inr/Protime 02/25/2020 [facility] Inr 1.20 High 0.82-1.[address] [place] [address] [phone] Laboratory 02/25/2020 [facility] Lactic Acid 4.9 mmol/L Critical 0.5-2.0 [address] [place] [address] [phone] Type & Screen 02/25/2020 [facility] Patient [place] [address] [phone] Antibody Screen NEGATIVE Comp Metabolic 02/25/2020 [facility] Sodium 136 mmol/L Normal 135-[address] [place] [address] [phone] Potassium 4.3 mmol/L Normal 3.5-5.0 Chloride 107 [...] Egfr 52.8 >60 4 Laboratory test 02/25/2020 [facility] Magnesium 1.9 mg/dL Normal 1.9-2.[address] [place] [address] [phone] Troponin-I (TnI) 0.26 ng/mL Critical high <0.03 5 TSH (Thyroid Stim Horm) 1.56 mcIU/mL Normal 0.34-5.60 CBC Auto 02/25/2020 [facility] White Blood 12.3 10^3/uL High 3.5-10.[address] [place] [address] [phone] Red Blood Count 3.13 10^6/uL Low 4.18-5.48 [...] Blood Cells % 0.1 Laboratory test 02/25/2020 [facility] Packed Cells SEE RESULTS [address] BELO <[place] [address] NOTE> [phone] Laboratory test 02/12/2020 [facility] C Reactive 22.69 mg/L High <8.[address] [place] [address] [phone] Creatine Kinase(CK) 3086 U/L High 10-223 Erythrocyte Sed Rate 19 mm/Hr Normal 0-19 Ferritin > 1500.0 ng/mL High 24-336 7 Urinalysis Profile 02/12/2020 [facility] Urine Color Yellow [address] [place], [place] [phone] Urine Appearance Clear Urine Specific Norphlet 1.020 Normal 1.010-1.030 Urine pH 6 Normal 5-9 Urine Urobilinogen Negative Negative Urine Ketones Negative Negative Urine Protein 1+(30 mg/dL) Abnormal Negative Urine Leukocytes Negative Negative Urine Blood Negative Negative Urine Nitrite Negative Negative Urine Bilirubin Negative Negative Urine Glucose Negative Negative CBC Auto 02/12/2020 [facility] White Blood 5.2 10^3/uL Normal 3.5-10.[address] [place] [address] [phone] Red Blood Count 5.52 10^6/uL High 4.18-5.48 [...] Blood Cells % 0.1 Comp Metabolic 02/12/2020 [facility] Sodium 138 mmol/L Normal 135-[address] [place] [address] [phone] Potassium 3.6 mmol/L Normal 3.5-5.0 Chloride 104 [...] Egfr 76.6 >60 8 Lipid Profile 02/12/2020 [facility] Triglycerides 128 mg/dL 9 (Trig/Chol/HDL) [address] [place] [address] [phone] Cholesterol 169 mg/dL 10 HDL Cholesterol 57.9 mg/dL 11 LDL Cholesterol 86 mg/dL 12 Laboratory test 02/12/2020 [facility] Creatine 3114 U/L High 10-[address] Kinase(CK) [place] [address] [phone] Comp Metabolic 02/12/2020 [facility] Sodium 137 Normal 135- [address] mmol/[place] [address] [phone] Potassium 3.4 mmol/L Low 3.5-5.0 Chloride 106 [...] U/L High 7-52 Ast 191 U/L High 1339 Egfr Non- 64.0 >60 Egfr 77.4 >60 13 Influenza A & B 02/08/2020 [facility] Flu AB Disclaimer (SEE NOTE) [address] [place] [address] [phone] Influenza A Molecular Negative Negative Influenza B Molecular Negative Negative 15 Laboratory test 02/08/2020 [facility] C Reactive 12.59 mg/L High <8.[address] [place] [address] [phone] Erythrocyte Sed Rate 12 mm/Hr Normal 0-19 TSH (Thyroid Stim Horm) 1.88 mcIU/mL Normal 0.34-5.60 Comp Metabolic Panel 02/08/2020 [facility] Sodium 134 mmol/L Low 135-[address] [place] [address] [phone] Potassium 4.0 mmol/L Normal 3.5-5.0 Chloride 101 [...] Egfr 79.1 >60 16 Laboratory test 02/08/2020 [facility] Creatine 2680 U/L High 10-[address] Kinase(CK) [place] [address] [phone] CBC Auto Diff 02/08/2020 [facility] White Blood 5.5 Normal 3.5 -10.[address] Count 10^3/[place] [address] [phone] Red Blood Count 5.31 10^6/uL Normal 4.18-5.48 [...] Blood Cells % 0.1 Basic Metabolic 01/28/2020 [facility] Sodium 133 mmol/L Low 135-[address] [place] [address] [phone] Chloride 101 mmol/L Normal 101-111 Co2 Carbon Dioxide 28 mmol/L Normal 22-32 Glucose 81 mg/dL Normal 70-100 Blood Urea Nitrogen 17 mg/dL Normal 6-24 Creatinine 1.03 mg/dL Normal 0.67-1.17 BUN/Creatinine Ratio 16.5 Normal 8-20 Calcium 8.2 mg/dL Low 8.6-10.3 Egfr Non- 68.3 >60 Egfr 82.7 >60 17 Potassium 4.2 mmol/L Normal 3.5-5.0 Anion Gap 4 mmol/L Normal 2-11 Cath Panel 01/25/2020 [facility] Partial 28.1 seconds Normal 26.0-38.[address] [place] [address] PTT [phone] CBC Auto 01/25/2020 [facility] White Blood 4.3 10^3/uL Normal 3.5-10.[address] [place] [address] [phone] Red Blood Count 5.07 10^6/uL Normal 4.18-5.48 [...] Red Blood Cells % 0.0 Inr/Protime 01/25/2020 [facility] Inr 0.99 Normal 0.82-1.[address] [place] [address] [phone] Basic Metabolic 01/25/2020 [facility] Sodium 134 mmol/L Low 135-[address] [place] [address] [phone] Potassium 4.0 mmol/L Normal 3.5-5.0 Chloride 101 mmol/L Normal 101-111 Co2 Carbon Dioxide 27 mmol/L Normal 22-32 Anion Gap 6 mmol/L Normal 2-11 Glucose 104 mg/dL High 70-100 Blood Urea Nitrogen 26 mg/dL High 6-24 Creatinine 1.21 mg/dL High 0.67-1.17 BUN/Creatinine Ratio 21.5 High 8-20 Calcium 8.0 mg/dL Low 8.6-10.3 Egfr Non- 56.7 >60 Egfr 68.6 >60 19 Laboratory test 01/19/2020 [facility] Clotest SEE RESULT [address] [place] [address] [phone] Stool Occult 01/19/2020 [facility] Stool Occult SEE RESULT 21 Blood Diag [address] Blood, [place] [address] [phone] CBC No Diff 01/19/2020 [facility] White Blood 5.3 10^3/uL Normal 3.5-[address] Count 0.8 [place] [address] [phone] Red Blood Count 4.93 10^6/uL Normal 4.18-5.48 Hemoglobin 12.5 g/dL Low 14.0-18.0 Hematocrit 38 % Low 42-52 Mean Corpuscular Volume 78 fL Low 80-94 Mean Corpuscular Hemoglobin 25 pg Low 27-31 Mean Corpuscular HGB Conc 33 g/dL Normal 31-36 Red Cell Distribution Width 15 % Normal 10-15 Platelet Count 157 10^3/uL Normal 150-450 Mean Platelet Volume 9.0 fL Normal 7.4-10.4 Laboratory test 01/19/2020 [facility] B-Type 361 pg/mL High <= [address] [place] [address] Peptide BNP [phone] Comp Metabolic 01/19/2020 [facility] Sodium 135 Normal 135- [address] mmol/[place] [address] [phone] Potassium 3.9 mmol/L Normal 3.5-5.0 Chloride 101 [...] >60 22 Iron & Iron Binding 01/19/2020 [facility] Iron 34 g/dL Low 50-[address] [place] [address] [phone] Unsaturated Iron Binding < 161 g/dL Total Iron Binding Capacity 176 g/dL Low 250-450 Transferrin 126 mg/dL Low 203-362 % Iron Saturation 19 % Normal 15-55 Protein 01/19/2020 [facility] Total 5.2 Abnormal 6.3 - Electrophoresis VR1 [facility] Protein(Pep) g/dL 7.9 [place], [place] [address] [phone] Albumin 2.6 g/dL Abnormal 3.4-4.7 Alpha-1 Globulin 0.2 g/dL 0.1-0.3 Alpha-2 Globulin 0.9 g/dL 0.6-1.0 Beta Globulin 0.7 g/dL 0.7-1.2 Gamma Globulin 0.7 g/dL 0.6-1.6 Albumin/Globulin Ratio 1.01 Impression See Comment 23 Laboratory 01/19/2020 [facility] Erythropoietin 5.9 2.6 - 24 test finding [facility] [address] mIU/mL 18.5 [place], [place] [address] [phone] Xray 01/14/2020 [facility] Chest PA & Lat 2 <pending> [address] [employer] [address] [place], [place] [address] [phone] Laboratory 01/14/2020 [facility] Ferritin 708.4 High 24-336 test finding [facility] [employer] ng/[place] [address] [phone] CBC Auto Diff 12/23/2019 [facility] White Blood Count 5.5 Normal 3.5-10. [address] 10^3/uL 8 [place] [address] [phone] Red Blood Count 4.74 10^6/uL Normal 4.18-5.48 [...] Red Blood Cells % 0.0 Laboratory 12/23/2019 [facility] D Dimer 261 ng/mL High Less 25 test finding [address] [place] [address] [phone] Comp Metabolic 12/23/2019 [facility] Sodium 136 Normal 135- [address] mmol/[place] [address] [phone] Potassium 4.0 mmol/L Normal 3.5-5.0 Chloride 102 [...] >60 26 Iron & Iron Binding 12/23/2019 [facility] Iron 33 g/dL Low 50-[address] [place] [address] [phone] Unsaturated Iron Binding < 205 g/dL Total Iron Binding Capacity 220 g/dL Low 250-450 Transferrin 157 mg/dL Low 203-362 % Iron Saturation 15 % Normal 15-55 CBC Auto 11/23/2019 [facility] White Blood 4.2 10^3/uL Normal 3.5-10.[address] [place] [address] [phone] Red Blood Count 4.69 10^6/uL Normal 4.18-5.48 [...] Blood Cells % 0.0 Comp Metabolic 11/23/2019 [facility] Sodium 139 mmol/L Normal 135-[address] [place] [address] [phone] Potassium 3.8 mmol/L Normal 3.5-5.0 Chloride 107 [...] Egfr 64.3 >60 27 Laboratory test 09/04/2019 [facility] Surgical SEE RESULT 28, [address] Pathology BELOW [place], [place] [address] [phone] 1 SEE RESULT BELOW Name: BETO PEREZ : [address]: Akhil Núñez MD Acct: [id number] Unit: [id number] AGE: 89 Location: ED Re02/25/20 SEX: M Status: REG ER SPEC: [id number] DOMINGO: 02/25/20-[address] [facility] [address]: Kamila Morin MD REQ: [id number] RECD: 02/25/20 STATUS: COMP [place] DR: Serenity Martin MD _ SOURCE: STOOL SPDESC: ORDERED: Occult Bl, Scn Procedure Result Reported Site Stool Occult Blood (1) Final 02/25/20- 0715 ML Stool Occult Blood Positive * ML - Main Lab . END OF REPORT DEPARTMENT OF PATHOLOGY, [address] [place] [address] Jeet Hall M.D. Director [facility] # [id number] 2 Standard intensity warfarin therapeutic range: 2.0-3.0 High intensity warfarin therapeutic range: 2.5-3.5 3 Critical Result LACT:4.9 Called to [id number] at: 04:21:22 by:[id number] Read back by:[id number] [facility] Severe Sepsis and Septic Shock Management [...] (or dialysis) 5 Result TnIDx:0.26 Called to [id number] at: 04:38:06 by:[id number] Read back by: [email or web address] Troponin-I testing on Plasma Separator Tubes (PST) has a known false positive rate of 0.20-0.40%. All positive troponins reflex immediately to secondary confirmatory testing. Using the [employer] DxI 800 Access Immunoassay systems, the 99th percentile upper reference limit was demonstrated to be < 0.03 ng/mL. 6 SEE RESULTS BELOW [id number] OP PC TRANSFUSED 02/27/20 1001 [id number] OP PC TRANSFUSED 02/25/20 0550 [id number] OP PC TRANSFUSED 02/25/20 1256 7 DO THIS IN ABOUT 3-5 MONTHS Copy Result to: BAO RODNEY ([id number]) 8 Because ethnic data is not always [...] reduce sensitivity of test. Refer to the [facility] Test Catalog for collection information: [email or web address] As with all diagnostic procedures, the laboratory results obtained should be used in conjunction with other clinical information available to the physician, including confirmation by another method, as applicable. 15 Covering Machine Operator: [id number] 16 Because ethnic data is not always [...] [address]: Julien Sheikh MD Acct: [id number] Unit: [id number] AGE: 89 Location: ENDO Re01/19/20 SEX: M Status: REG REF SPEC: [id number] DOMINGO: 01/19/20-[address] [facility] [address]: Julien Sheikh MD REQ: [id number] RECD: 01/19/20494 STATUS: COMP [facility] DR: Serenity Martin MD _ SOURCE: GAS ANTRUM SPDESC: ORDERED: Clotest Procedure Result Reported Site Clotest Final 01/20/20- 0943 ML Clotest Negative * ML - Main Lab . END OF REPORT DEPARTMENT OF PATHOLOGY, [address] [place] [address] Jeet Hlal M.D. Director [facility] # [id number] 21 SEE RESULT BELOW Name: TOÑABETO : [address]: Julien Sheikh MD Acct: [id number] Unit: [id number] AGE: 89 Location: ENDO Re01/19/20 SEX: M Status: REG REF SPEC: [id number] DOMINGO: 01/19/20-[address] [facility] [address]: Julien Sheikh MD REQ: [id number] RECD: 01/19/20 STATUS: TNUDE MEJIA DR: Serenity Martin MD _ SOURCE: STOOL SPDESC: ORDERED: Occult Bl, Diag Procedure Result Reported Site Stool Occult Blood (1) Final 01/19/20- 1535 ML Stool Occult Blood Negative Collection Date (1) 01/19/20 * ML - Main Lab . END OF REPORT DEPARTMENT OF PATHOLOGY, [address] [place] [address] Jeet Hall M.D. Director [facility] # [id number] 22 Because ethnic data is not always [...] protein on serum electrophoresis. Test Performed by: [place] [address] Production Machine Operator: Norberto Cutler M.D. Ph.D.; CLIA# [id number] 24 Test Performed by: [place] [address] Production Machine Operator: Norberto Cutler M.D. Ph.D.; CLIA# [id number] 25 Please note: The following may produce [...] 5 Kidney failure <15 (or dialysis) 28 [id number] 29 SEE RESULT BELOW Name: TOÑABETO : [address]: Oj Quintero MD Acct: [id number] Unit: [id number] AGE: 89 Location: [facility] Re09/04/19 SEX: M Status: REG REF SPEC: [id number] DOMINGO: 09/04/[address] [facility] [address]: Oj Quintero MD REQ: [id number] RECD: 09/04/191692 STATUS: MANPREET MEJIA DR: Serenity Hanson MD _ ORDERED: LEVEL 4 COMMENTS: [id number] FINAL DIAGNOSIS Skin, right mid forehead, excision: -- Scar, excised. -- No evidence of residual basal cell carcinoma. COMMENT: The previous lesion at this site ([id number]) has been completely excised. CLINICAL HISTORY See [facility] [id number] PRE-OPERATIVE DIAGNOSIS Basal cell carcinoma, suture lopez 12:00 medial apex margin GROSS DESCRIPTION The specimen is received in formalin labeled, Excision Basal Cell Carcinoma Right Mid Forehead, Suture Lopez 12:00 Medial Kouts Margin, and consists of a 3.0 x [...] 1103 END OF REPORT DEPARTMENT OF PATHOLOGY, [address] [place] [address] Jeet Hall M.D. Director [facility] # [id number] Procedures Date Code Description Status 03/02/2020 81807 ECHO Transthorasic Realtime 2D W Doppler & Color Flow Completed Hosp 02/24/2020 75198 Echocardiogram, Limited Study Completed 02/24/2020 17257 Echocardiogram, Limited Study Completed 02/24/2020 60914 Echocardiogram, Limited Study Completed 02/24/2020 67015 EKG Tracing & Interpretation Completed 01/28/2020 03688 Cath PLMT&NJX L Ventriculog Img S&I Completed 01/20/2020 49469 EKG Tracing & Interpretation Completed 01/19/2020 92917 Endoscopy Upper GI Biopsy Completed 01/11/2020 45541 ECHO Transthoracic, Real-Time 2D With Doppler And Color Completed Flow 01/11/2020 76872 ECHO Transthoracic, Real-Time 2D With Doppler And Color Completed Flow 12/21/2019 69081 EKG Tracing & Interpretation Completed 12/07/2019 16239 Inject/Drain Joint/Bursa Major W/O US Completed 12/15/2013 91394851 Colonoscopy Completed 10/21/2007 28545356 Colonoscopy Completed 02/18/2001 29065316 Colonoscopy Completed Medical Devices Description No Information Available Encounters Type Date Location Provider Dx Diagnosis Office Visit 03/02/2020 [facility] Ivonne Thakkar, 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, 1:28p Of Malu Cole unspecified R55 Syncope and collapse I47.2 Ventricular tachycardia I48.0 Paroxysmal atrial fibrillation Office Visit 02/25/2020 Surgical Bernie Lozoya MD K63.1 Perforation of 7:00a [facility] (nontraumatic) Office Visit 02/19/2020 [facility] Internal Serenity M79.10 Myalgia, 2:00p Medicine - Mary Jo Martin M.D. unspecified site K59.00 Constipation, unspecified Office Visit 02/17/2020 11:38a [facility] Dulce M62.82 Rhabdomyolysis Assoc,diana Andrews D.O. Hospitalists I25.5 Ischemic cardiomyopathy I10 Essential (primary) hypertension Office Visit 02/16/2020 11:37a [facility] Marisa Lira M62.82 Rhabdomyolysis Assoc,diana N.PRen[facility] Hospitalists I10 Essential (primary) hypertension I25.5 Ischemic cardiomyopathy Office Visit 02/15/2020 3:20p Rheumatology Vinod Bowen M62.82 Rhabdomyolysis Services Of Malu Cole R74.8 Abnormal levels of other serum enzymes R23.2 [place] Office Visit 02/15/2020 11:36a [facility] Martir M62.82 Rhabdomyolysis Assoc,diana Case M.D. Hospitalists I10 Essential (primary) hypertension Office Visit 02/13/2020 11:34a [facility] M62.82 Rhabdomyolysis Assoc,diana Case M.D. Hospitalists I10 Essential (primary) hypertension Office Visit 02/08/2020 9:00a [facility] Internal Serenity M79.10 Myalgia, Gissel - [facility]9 Acute upper respiratory infection, unspecified R19.7 Diarrhea, unspecified Office Visit 02/02/2020 [place] Alexandrea Blake 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, 3:00p Cardiology Of MD Trudi, unspecified Ultrasound Technologist AT [facility] Office Visit 01/20/2020 [place] Bao Piedra D50.9 Iron deficiency 10:30a Cardiology Kelsey Rodney anemia, unspecified R60.0 Localized edema 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, unspecified I10 Essential (primary) hypertension I50.22 Chronic systolic (congestive) heart failure I49.5 Sick sinus syndrome I49.3 Ventricular premature depolarization I45.19 Other right bundle-branch block I45.2 Bifascicular block R94.31 Abnormal electrocardiogram [ECG] [EKG] Office Visit 01/14/2020 [facility] Gastroenterology Vanessa D50.9 Iron deficiency 1:10p Alison anemia, Hunter, GERIATRIC PHYSICIAN unspecified R60.0 Localized edema 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, unspecified Office Visit 12/31/2019 8:40a [facility] Internal Serenity R60.0 Localized edema Gissel Martin M.D. M25.562 Pain in left knee Office Visit 12/25/2019 9:15a [facility] Geno Clemens, M25.562 Pain in left [place] knee M25.462 Effusion, left knee M17.12 Unilateral primary osteoarthritis, left knee Office Visit 12/21/2019 [place] Bao Piedra 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, 3:20p Cardiology Kris Rodney M.D. unspecified [facility] I10 Essential (primary) hypertension D64.9 Anemia, unspecified I49.3 Ventricular premature depolarization R60.0 Localized edema I82.402 Acute embolism and thombos unsp deep veins of l low extrem I45.89 Other specified conduction disorders R94.31 Abnormal electrocardiogram [ECG] [EKG] Office Visit 12/07/2019 9:00a [facility] Genopanfilo Clemens, M25.562 Pain in left at [place] M.D. knee M25.462 Effusion, left knee M17.12 [...] Rodney M.D. 02/24/2020 R55 Syncope and collapse Secor ECHO Schedule 02/24/2020 M79.10 Myalgia, unspecified site Bao Rodney M.D. 02/24/2020 R60.0 Localized edema Secor ECHO Schedule 02/24/2020 M62.82 Rhabdomyolysis Bao Rodney [...] 02/02/2020 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, unspecified Alexandrea Brush MD, [facility], [facility] 01/28/2020 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, unspecified Shimon Clifford M.D., [facility] 01/20/2020 D50.9 Iron deficiency anemia, unspecified [...] Iron deficiency anemia, unspecified Vanessa Hunter , GERIATRIC PHYSICIAN 01/14/2020 R60.0 Localized edema Vanessa Hunter, GERIATRIC PHYSICIAN 01/14/2020 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, unspecified Vanessa Hunter, GERIATRIC PHYSICIAN 01/11/2020 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, unspecified Bao Rodney M.D. 01/11/2020 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, unspecified [facility] E[facility] Schedule 12/31/2019 R60.0 Localized edema Serenity [...] 8:45 am - Geno Clemens M.D. at [facility] at [id number]/24/2020 - Bao Rodney M.D.M79.10 Myalgia, unspecified siteM62.82 RtuwgotrgnskbfM12 Essential (primary) cnkqqqvgdsqyR89.9 Cardiomyopathy, unspecifiedRecommendations:take torsemide 10 mg on 3.26.20 am and call 3.27 to report on urination, change in weight and changein edema.D50.9 Iron deficiency anemia, [id number] Syncope and collapseNew Orders:[facility] Outpatient Telemetry, Ordered: 02/24/20Follow up:tele ov in 2 weeks. Functional Status Description No Information Available Mental Status Description No Information Available Referrals Refer to Reason for Referral Status Appt Date Julien Sheikh MD Scheduled 01/14/2020 [address] [place] [id number] [phone]
--- OUTSIDE RECORDS SUMMARY | 2020-03-04 10:26 | XMS REPORT | Continuity of Care Document ---
:1930 External Reference #:[id number] Author Name Dulce Andrews D.O. (transmitted by agent of provider Jenny Oliver) Address [address] [place] [address] Care Team Providers Name Role Phone Glenda [facility] Therapy Care Team Information Narcotics And Vice Detective [phone] [place] - Physical Therapist Serenity Martin MD - Internal Care Team Information Narcotics And Vice Detective Medicine Bao Rodney MD - Cardiovascular Care Team Information Narcotics And Vice Detective [phone] Disease Julien Sheikh MD - Gastroenterology Care Team Information Narcotics And Vice Detective Problems Active Problems Provider Date Edema of [...] 90tabs Bao Piedra 01/14/2020 - 5mg day Kelsye Rodney 01/29/2020 Tablets Torsemide 1/2 tablet by [...] Injection Technetium TC 99M Golden Champagne, DO [facility] 04/20/2019 Tetrofosmin, Per Unit Dose Up To 40 Millicuries Injection Technetium TC 99M Golden Champagne, DO [facility] 04/20/2019 Tetrofosmin, Per Unit Dose Up [...] Willi Caba M.D. 01/21/2014 Injection Depomedrol 80MG Wlili Caba M.D. 11/19/2013 Injection Depomedrol 80MG Willi Caba M.D. 02/24/2013 Injection Immunizations CPT Code Status Date Vaccine Lot # [id number] Given 09/25/2019 Influenza Virus Vaccine, Quadrivalent, Split, Preservative Free [id number] Given 09/24/2018 Influenza Virus Vaccine, Quadrivalent, Split, Preservative Free [id number] Given 09/23/2017 Influenza Virus Vaccine, Quadrivalent, Split, [id number] Preservative Free [id number] Given 09/23/2017 Pneumococcal Conjugate Vaccine 13 Valent For [id number] Intramuscular Use Vital Signs Date Vital Result [...] H/L Range Note Date Stool Occult 02/25/2020 [facility] Stool SEE RESULT 1 Blood, Screen [address] [place] [address] Blood, [phone] Screen Inr/Protime 02/25/2020 [facility] Inr 1.20 High 0.82-1.[address] [place] [address] [phone] Laboratory 02/25/2020 [facility] Lactic Acid 4.9 mmol/L Critical 0.5-2.0 [address] [place] [address] [phone] Type & Screen 02/25/2020 [facility] Patient O Positive [address] [place] [address] [phone] Antibody Screen NEGATIVE Comp Metabolic 02/25/2020 [facility] Sodium 136 mmol/L Normal 135-[address] [place] [address] [phone] Potassium 4.3 mmol/L Normal 3.5-5.0 Chloride 107 [...] Egfr 52.8 >60 4 Laboratory test 02/25/2020 [facility] Magnesium 1.9 mg/dL Normal 1.9-2.[address] [place] [address] [phone] Troponin-I (TnI) 0.26 ng/mL Critical high <0.03 5 TSH (Thyroid Stim Horm) 1.56 mcIU/mL Normal 0.34-5.60 CBC Auto 02/25/2020 [facility] White Blood 12.3 10^3/uL High 3.5-10.[address] [place] [address] [phone] Red Blood Count 3.13 10^6/uL Low 4.18-5.48 [...] Blood Cells % 0.1 Laboratory test 02/12/2020 [facility] C Reactive 22.69 mg/L High <8.[address] [place] [address] [phone] Creatine Kinase(CK) 3086 U/L High 10-223 Erythrocyte Sed Rate 19 mm/Hr Normal 0-19 Ferritin > 1500.0 ng/mL High 24-336 6 Urinalysis Profile 02/12/2020 [facility] Urine Color Yellow [address] [place] [address] [phone] Urine Appearance Clear Urine Specific [place] 1.020 Normal 1.010-1.030 Urine pH 6 Normal 5-9 Urine Urobilinogen Negative Negative Urine Ketones Negative Negative Urine Protein 1+(30 mg/dL) Abnormal Negative Urine Leukocytes Negative Negative Urine Blood Negative Negative Urine Nitrite Negative Negative Urine Bilirubin Negative Negative Urine Glucose Negative Negative CBC Auto 02/12/2020 [facility] White Blood 5.2 10^3/uL Normal 3.5-10.[address] [place] [address] [phone] Red Blood Count 5.52 10^6/uL High 4.18-5.48 [...] Blood Cells % 0.1 Comp Metabolic 02/12/2020 [facility] Sodium 138 mmol/L Normal 135-[address] [place] [address] [phone] Potassium 3.6 mmol/L Normal 3.5-5.0 Chloride 104 [...] Egfr 76.6 >60 7 Lipid Profile 02/12/2020 [facility] Triglycerides 128 mg/dL 8 (Trig/Chol/HDL) [address] [place] [address] [phone] Cholesterol 169 mg/dL 9 HDL Cholesterol 57.9 mg/dL 10 LDL Cholesterol 86 mg/dL 11 Laboratory test 02/12/2020 [facility] Creatine 3114 U/L High 10-[address] Kinase(CK) [place] [address] [phone] Comp Metabolic 02/12/2020 [facility] Sodium 137 Normal 135- [address] mmol/[place] [address] [phone] Potassium 3.4 mmol/L Low 3.5-5.0 Chloride 106 [...] >60 12 Influenza A & B 02/08/2020 [facility] Flu AB Disclaimer (SEE NOTE) [address] [place] [address] [phone] Influenza A Molecular Negative Negative Influenza B Molecular Negative Negative 14 Laboratory test 02/08/2020 [facility] C Reactive 12.59 mg/L High <8.[address] [place] [address] [phone] Erythrocyte Sed Rate 12 mm/Hr Normal 0-19 TSH (Thyroid Stim Horm) 1.88 mcIU/mL Normal 0.34-5.60 Comp Metabolic Panel 02/08/2020 [facility] Sodium 134 mmol/L Low 135-[address] [place] [address] [phone] Potassium 4.0 mmol/L Normal 3.5-5.0 Chloride 101 [...] Egfr 79.1 >60 15 Laboratory test 02/08/2020 [facility] Creatine 2680 U/L High 10-[address] Kinase(CK) [place] [address] [phone] CBC Auto Diff 02/08/2020 [facility] White Blood 5.5 Normal 3.5 -10.[address] Count 10^3/[place] [address] [phone] Red Blood Count 5.31 10^6/uL Normal 4.18-5.48 [...] Blood Cells % 0.1 Basic Metabolic 01/28/2020 [facility] Sodium 133 mmol/L Low 135-[address] [place] [address] [phone] Chloride 101 mmol/L Normal 101-111 Co2 Carbon Dioxide 28 mmol/L Normal 22-32 Glucose 81 mg/dL Normal 70-100 Blood Urea Nitrogen 17 mg/dL Normal 6-24 Creatinine 1.03 mg/dL Normal 0.67-1.17 BUN/Creatinine Ratio 16.5 Normal 8-20 Calcium 8.2 mg/dL Low 8.6-10.3 Egfr Non- 68.3 >60 Egfr 82.7 >60 16 Potassium 4.2 mmol/L Normal 3.5-5.0 Anion Gap 4 mmol/L Normal 2-11 Cath Panel 01/25/2020 [facility] Partial 28.1 seconds Normal 26.0-38.[address] [place] [address] [phone] CBC Auto 01/25/2020 [facility] White Blood 4.3 10^3/uL Normal 3.5-10.[address] [place] [address] [phone] Red Blood Count 5.07 10^6/uL Normal 4.18-5.48 [...] Red Blood Cells % 0.0 Inr/Protime 01/25/2020 [facility] Inr 0.99 Normal 0.82-1.09 17 [address] [place] [address] [phone] Basic Metabolic 01/25/2020 [facility] Sodium 134 mmol/L Low 135-145 Panel [address] [place] [address] [phone] Potassium 4.0 mmol/L Normal 3.5-5.0 Chloride 101 mmol/L Normal 101-111 Co2 Carbon Dioxide 27 mmol/L Normal 22-32 Anion Gap 6 mmol/L Normal 2-11 Glucose 104 mg/dL High 70-100 Blood Urea Nitrogen 26 mg/dL High 6-24 Creatinine 1.21 mg/dL High 0.67-1.17 BUN/Creatinine Ratio 21.5 High 8-20 Calcium 8.0 mg/dL Low 8.6-10.3 Egfr Non- 56.7 >60 Egfr 68.6 >60 18 Laboratory test 01/19/2020 [facility] Clotest SEE RESULT [address] [place] [address] [phone] Stool Occult 01/19/2020 [facility] Stool Occult SEE RESULT [address] Blood, [place] [address] [phone] CBC No Diff 01/19/2020 [facility] White Blood 5.3 10^3/uL Normal 3.5-[address] Count 0.8 [place] [address] [phone] Red Blood Count 4.93 10^6/uL Normal 4.18-5.48 Hemoglobin 12.5 g/dL Low 14.0-18.0 Hematocrit 38 % Low 42-52 Mean Corpuscular Volume 78 fL Low 80-94 Mean Corpuscular Hemoglobin 25 pg Low 27-31 Mean Corpuscular HGB Conc 33 g/dL Normal 31-36 Red Cell Distribution Width 15 % Normal 10-15 Platelet Count 157 10^3/uL Normal 150-450 Mean Platelet Volume 9.0 fL Normal 7.4-10.4 Laboratory test 01/19/2020 [facility] B-Type 361 pg/mL High <= [address] [place] [address] Peptide BNP [phone] Comp Metabolic 01/19/2020 [facility] Sodium 135 Normal 135- [address] mmol/[place] [address] [phone] Potassium 3.9 mmol/L Normal 3.5-5.0 Chloride 101 [...] >60 21 Iron & Iron Binding 01/19/2020 [facility] Iron 34 g/dL Low 50-[address] [place] [address] [phone] Unsaturated Iron Binding < 161 g/dL Total Iron Binding Capacity 176 g/dL Low 250-450 Transferrin 126 mg/dL Low 203-362 % Iron Saturation 19 % Normal 15-55 Protein 01/19/2020 [facility] Total 5.2 Abnormal 6.3 - Electrophoresis [address] Protein(Pep) g/dL 7.9 [place] [address] [phone] Albumin 2.6 g/dL Abnormal 3.4-4.7 Alpha-1 Globulin 0.2 g/dL 0.1-0.3 Alpha-2 Globulin 0.9 g/dL 0.6-1.0 Beta Globulin 0.7 g/dL 0.7-1.2 Gamma Globulin 0.7 g/dL 0.6-1.6 Albumin/Globulin Ratio 1.01 Impression See Comment 22 Laboratory 01/19/2020 [facility] Erythropoietin 5.9 2.6 - 23 test finding [address] mIU/mL 18.5 [place] [address] [phone] Xray 01/14/2020 [facility] Chest PA & Lat 2 <pending> [address] [place] [address] [phone] Laboratory 01/14/2020 [facility] Ferritin 708.4 High 24-336 test finding [address] ng/[place] [address] [phone] CBC Auto Diff 12/23/2019 [facility] White Blood Count 5.5 Normal 3.5-10. [address] 10^3/uL 8 [place] [address] [phone] Red Blood Count 4.74 10^6/uL Normal 4.18-5.48 [...] Red Blood Cells % 0.0 Laboratory 12/23/2019 [facility] D Dimer 261 ng/mL High Less [address] [place] [address] [phone] Comp Metabolic 12/23/2019 [facility] Sodium 136 Normal 135- [address] mmol/[place] [address] [phone] Potassium 4.0 mmol/L Normal 3.5-5.0 Chloride 102 [...] >60 25 Iron & Iron Binding 12/23/2019 [facility] Iron 33 g/dL Low 50-[address] [place] [address] [phone] Unsaturated Iron Binding < 205 g/dL Total Iron Binding Capacity 220 g/dL Low 250-450 Transferrin 157 mg/dL Low 203-362 % Iron Saturation 15 % Normal 15-55 CBC Auto 11/23/2019 [facility] White Blood 4.2 10^3/uL Normal 3.5-10.[address] [place] [address] [phone] Red Blood Count 4.69 10^6/uL Normal 4.18-5.48 [...] Blood Cells % 0.0 Comp Metabolic 11/23/2019 [facility] Sodium 139 mmol/L Normal 135-[address] [place], [place] [address] [phone] Potassium 3.8 mmol/L Normal 3.5-5.0 Chloride 107 [...] Egfr 64.3 >60 26 Laboratory test 09/04/2019 [facility] Surgical SEE RESULT 27, [address] [place] [address] [phone] 1 SEE RESULT BELOW Name: BETO PEREZ : [address]: Akhil Núñez MD Acct: [id number] Unit: [id number] AGE: 89 Location: ED Re02/25/20 SEX: M Status: REG ER SPEC: [id number] DOMINGO: 02/25/[address] [facility] [address]: Kamila Morin MD REQ: [id number] RECD: 02/25/20 STATUS: TUNDE MEJIA DR: Serenity Martin MD _ SOURCE: STOOL SPDESC: ORDERED: Occult Bl, Scn Procedure Result Reported Site Stool Occult Blood (1) Final 02/25/20- 0715 ML Stool Occult Blood Positive * ML - Main Lab . END OF REPORT DEPARTMENT OF PATHOLOGY, [address] [place] [address] Jeet Hall M.D. Director [facility] # [id number] 2 Standard intensity warfarin therapeutic range: 2.0-3.0 High intensity warfarin therapeutic range: 2.5-3.5 3 Critical Result LACT:4.9 Called to [id number] at: 04:21:22 by:[id number] Read back by:[id number] [facility] Severe Sepsis and Septic Shock Management [...] (or dialysis) 5 Result TnIDx:0.26 Called to [id number] at: 04:38:06 by:[id number] Read back by: [id number] Troponin-I testing on Plasma Separator Tubes (PST) has a known false positive rate of 0.20-0.40%. All positive troponins reflex immediately to secondary confirmatory testing. Using the YABU[employer] DxI 800 Access Immunoassay systems, the 99th percentile upper reference limit was demonstrated to be < 0.03 ng/mL. 6 DO THIS IN ABOUT 3-5 MONTHS Copy Result to: BAO RODNEY ([id number]) 7 Because ethnic data is not always [...] reduce sensitivity of test. Refer to the [facility] Test Catalog for collection information: [email or web address]://[email or web address].[email or web address].[email or web address] As with all diagnostic procedures, the laboratory results obtained should be used in conjunction with other clinical information available to the physician, including confirmation by another method, as applicable. 14 Welt Sole Layer: [id number] 15 Because ethnic data is not always [...] [address]: Julien Sheikh MD Acct: [id number] Unit: [id number] AGE: 89 Location: ENDO Re01/19/20 SEX: M Status: REG REF SPEC: [id number] DOMINGO: 01/19/20-1306 [facility] [address]: Julien Sheikh MD REQ: [id number] RECD: 01/19/20-151 STATUS: TUNDE MEJIA DR: Serenity Martin MD _ SOURCE: GAS ANTRUM SPDESC: ORDERED: Clotest Procedure Result Reported Site Clotest Final 01/20/20- 942 ML Clotest Negative * ML - Main Lab . END OF REPORT DEPARTMENT OF PATHOLOGY, [address] [place] [address] Jeet Hall M.D. Director [facility] # [id number] 20 SEE RESULT BELOW Name: BETO PEREZ : [address]: Julien Sheikh MD Acct: [id number] Unit: [id number] AGE: 89 Location: ENDO Re01/19/20 SEX: M Status: REG REF SPEC: [id number] DOMINGO: 01/19/20-[address] [facility] [address]: Julien Sheikh MD REQ: [id number] RECD: 01/19/20152 STATUS: COMP OTHR DR: Serenity Martin MD _ SOURCE: STOOL SPDESC: ORDERED: Occult Bl, Diag Procedure Result Reported Site Stool Occult Blood (1) Final 01/19/20- 1535 ML Stool Occult Blood Negative Collection Date (1) 01/19/20 * ML - Main Lab . END OF REPORT DEPARTMENT OF PATHOLOGY, [address] [place] [address] Jeet Hall M.D. Director [facility] # [id number] 21 Because ethnic data is not always [...] protein on serum electrophoresis. Test Performed by: [place] [address] Para Professional: Norberto Cutler M.D. Ph.D.; CLIA# [id number] 23 Test Performed by: [place] [address] Para Professional: Norberto Cutler M.D. Ph.D.; CLIA# [id number] 24 Please note: The following may produce [...] 5 Kidney failure <15 (or dialysis) 27 [id number] 28 SEE RESULT BELOW Name: BETO PEREZ : [address]: Oj Quintero MD Acct: [id number] Unit: [id number] AGE: 89 Location: [facility] Re09/04/19 SEX: M Status: REG REF SPEC: [id number] DOMINGO: 09/04/[address] [facility] [address]: Oj Quintero MD REQ: [id number] RECD: 09/04/19 STATUS: MANPREET MEJIA DR: Serenity Hanson MD _ ORDERED: LEVEL 4 COMMENTS: [id number] FINAL DIAGNOSIS Skin, right mid forehead, excision: -- Scar, excised. -- No evidence of residual basal cell carcinoma. COMMENT: The previous lesion at this site ([id number]) has been completely excised. CLINICAL HISTORY [place] [facility] [id number] PRE-OPERATIVE DIAGNOSIS Basal cell carcinoma, suture lopez 12:00 medial apex margin GROSS DESCRIPTION The specimen is received in formalin labeled, Excision Basal Cell Carcinoma Right Mid Forehead, Suture Lopez 12:00 Medial [place] Margin, and consists of a 3.0 x [...] 1103 END OF REPORT DEPARTMENT OF PATHOLOGY, [address] [place] [address] Jeet Hall M.D. Director [facility] # [id number] Procedures Date Code Description Status 02/24/2020 74105 Echocardiogram, Limited Study Completed 02/24/2020 90587 Echocardiogram, Limited Study Completed 02/24/2020 46599 EKG Tracing & Interpretation Completed 01/28/2020 73348 Cath PLMT&NJX L Ventriculog Img S&I Completed 01/20/2020 21007 EKG Tracing & Interpretation Completed 01/19/2020 43732 Endoscopy Upper GI Biopsy Completed 01/11/2020 95747 ECHO Transthoracic, Real-Time 2D With Doppler And Color Completed Flow 01/11/2020 51008 ECHO Transthoracic, Real-Time 2D With Doppler And Color Completed Flow 12/21/2019 49298 EKG Tracing & Interpretation Completed 12/07/2019 94882 Inject/Drain Joint/Bursa Major W/O US Completed 12/15/2013 11726992 Colonoscopy Completed 10/21/2007 28591711 Colonoscopy Completed 02/18/2001 04937951 Colonoscopy Completed Medical Devices Description No Information Available Encounters Type Date Location Provider Dx Diagnosis Office Visit 02/19/2020 [facility] Internal Serenity Martin M79.10 Myalgia, 2:00p Medicine Meri Camargo M.D. unspecified site K59.00 Constipation, unspecified Office Visit 02/17/2020 11:38a [facility] Dulce M62.82 Rhabdomyolysis Assoc,pc Matt Andrews Hospitalists I25.5 Ischemic cardiomyopathy I10 Essential (primary) hypertension Office Visit 02/16/2020 11:37a [facility] Marisa Lira M62.82 Rhabdomyolysis Assoc,diana NRenitaPRenita Hospitalists I10 Essential (primary) hypertension I25.5 Ischemic cardiomyopathy Office Visit 02/15/2020 11:36a [facility] Martir M62.82 Rhabdomyolysis Assoc,diana Case M.D. Hospitalists I10 Essential (primary) hypertension Office Visit 02/13/2020 11:34a [facility] Martir M62.82 Rhabdomyolysis Assoc,diana Case M.D. Hospitalists I10 Essential (primary) hypertension Office Visit 02/08/2020 9:00a [facility] Internal Serenity M79.10 Myalgia, Gissel Martin M.D. unspecified site Ccmob J06.9 Acute upper respiratory infection, unspecified R19.7 Diarrhea, unspecified Office Visit 02/02/2020 Sourav lBake 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, 3:00p Cardiology Kris Brush MD, unspecified Tennis Player AT [facility] Office Visit 01/20/2020 Zoya Piedra D50.9 Iron deficiency 10:30a Cardiology Kelsey Rodney anemia, unspecified R60.0 Localized edema 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, unspecified I10 Essential (primary) hypertension I50.22 Chronic systolic (congestive) heart failure I49.5 Sick sinus syndrome I49.3 Ventricular premature depolarization I45.19 Other right bundle-branch block I45.2 Bifascicular block R94.31 Abnormal electrocardiogram [ECG] [EKG] Office Visit 01/14/2020 [facility] Gastroenterology Vanessa D50.9 Iron deficiency 1:10p Alison anemia, Hunter, GROUP DIRECTOR EXPERIENCE unspecified R60.0 Localized edema 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, unspecified Office Visit 12/31/2019 8:40a [facility] Internal Serenity R60.0 Localized edema Medicine - Mary Jo Martin M.D. M25.562 Pain in left knee Office Visit 12/25/2019 9:15a [facility] Genopanfilo Clemens, M25.562 Pain in left at [place] M.D. knee M25.462 Effusion, left knee M17.12 Unilateral primary osteoarthritis, left knee Office Visit 12/21/2019 [place] Bao Piedra 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, 3:20p Cardiology Of Kelsey Rodney unspecified [facility] I10 Essential (primary) hypertension D64.9 Anemia, unspecified I49.3 Ventricular premature depolarization R60.0 Localized edema I82.402 Acute embolism and thombos unsp deep veins of l low extrem I45.89 Other specified conduction disorders R94.31 Abnormal electrocardiogram [ECG] [EKG] Office Visit 12/07/2019 9:00a [facility] Genojeovany Clemens, M25.562 Pain in left at [place] M.D. knee M25.462 Effusion, left knee M17.12 [...] unspecified Serenity Martin M.D. 02/17/2020 M62.82 Rhabdomyolysis Ruby HeardO. 02/17/2020 I25.5 Ischemic cardiomyopathy Ruby HeardO. 02/17/2020 I10 Essential (primary) hypertension Dulce Andrews D.O. 02/16/2020 M62.82 Rhabdomyolysis Marisa Lira, N.P. 02/16/2020 I10 Essential (primary) hypertension Marisa Lira, N.P. 02/16/2020 I25.5 Ischemic cardiomyopathy Marisa Lira, N.P. 02/15/2020 M62.82 Rhabdomyolysis Martir Case M.D. 02/15/2020 I10 Essential (primary) hypertension Martir Case M.D. 02/14/2020 M62.82 Rhabdomyolysis Martir Case M.D. 02/14/2020 I10 Essential (primary) hypertension Martri Case M.D. 02/13/2020 M62.82 Rhabdomyolysis Martir Case M.D. 02/13/2020 I10 Essential (primary) hypertension Martir Case M.D. 02/12/2020 M62.82 Rhabdomyolysis Martir Case M.D. 02/12/2020 I10 Essential (primary) hypertension Martir Case M.D. 02/08/2020 M79.10 Myalgia, unspecified site Serenity Martin M.D. 02/08/2020 J06.9 Acute upper respiratory infection, Serenity Martin M.D. unspecified 02/08/2020 R19.7 Diarrhea, unspecified Serenity Martin M.D. 02/02/2020 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, unspecified Alexandrea Brush MD, [facility], [facility] 01/28/2020 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, unspecified Shimon Clifford M.D., [facility], [facility] 01/20/2020 D50.9 Iron deficiency anemia, [...] Iron deficiency anemia, unspecified Vanessa Hunter , [employer] DIRECT[employer]PERIENCE 01/14/2020 R60.0 Localized edema Vanessa Hunter, GROUP DIRECT[employer] EXPERIENCE 01/14/2020 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, unspecified Vanessa Hunter, NILDA 01/11/2020 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, unspecified Bao Rodney M.D. 01/11/2020 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, unspecified Kosse ECHO Schedule 12/31/2019 R60.0 Localized edema Serenity Martin M.D. 12/31/2019 M25.562 Pain in left knee Serenity Martin M.D. 12/25/2019 M25.562 Pain in left knee Geno Clemens M.D. 12/25/2019 M25.462 Effusion, left knee Geno Clemens M.D. 12/25/2019 M17.12 Unilateral primary osteoarthritis, Geno Clemens M.D. left knee 12/21/2019 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, unspecified Isac ChengD. 12/21/2019 I10 Essential (primary) hypertension Bao Rodney [...] 8:45 am - Geno Clemens M.D. at [facility] at Bykgix7502/24/2020 - Bao Rodney M.D.M79.10 Myalgia, unspecified siteM62.82 FgbgtuqownyjbcZ99 Essential (primary) ovpkyqbaliwaL85.9 Cardiomyopathy, unspecifiedRecommendations:take torsemide 10 mg on 3.26.20 am and call 3.27 to report on urination, change in weight and changein edema.D50.9 Iron deficiency anemia, [id number] Syncope and collapseNew Orders:[facility]iac Outpatient Telemetry, Ordered: 02/24/20Follow up:tele ov in 2 weeks. Functional Status Description No Information Available Mental Status Description No Information Available Referrals Refer to Reason for Referral Status Appt Date Julien Sheikh MD Scheduled 01/14/2020 [address] [place] [address] [phone]
--- OUTSIDE RECORDS SUMMARY | 2020-03-04 10:26 | XMS REPORT | Continuity of Care Document ---
:1930 External Reference #:[id number] Author Name [facility] Schedule (transmitted by agent of provider Alison Mendoza) Address [address] [address] Care Team Providers Name Role Phone Glenda Physical Therapy Care Team Information Varnisher Plasticoater Danielson - Physical Therapist Serenity Martin MD - Internal Care Team Information Varnisher Plasticoater Medicine Bao Rodney MD - Cardiovascular Care Team Information Varnisher Plasticoater [phone] Disease Julien Sheikh MD - Gastroenterology Care Team Information Varnisher Plasticoater Problems Active Problems Provider Date Edema of [...] Injection Technetium TC 99M Golden Champagne, DO [facility] 04/20/2019 Tetrofosmin, Per Unit Dose Up To 40 Millicuries Injection Technetium TC 99M Golden Champagne, DO [facility] 04/20/2019 Tetrofosmin, Per Unit Dose Up To [...] CPT Code Status Date Vaccine Lot # [id number] Given 09/25/2019 Influenza Virus Vaccine, Quadrivalent, Split, Preservative Free 25379 Given 09/24/2018 Influenza Virus Vaccine, Quadrivalent, Split, Preservative Free 56709 Given 09/23/2017 Influenza Virus Vaccine, Quadrivalent, Split, [id number] Preservative Free 72868 Given 09/23/2017 Pneumococcal Conjugate Vaccine 13 Valent For [id number] Intramuscular Use Vital Signs Date Vital Result [...] H/L Range Note Date Stool Occult 02/25/2020 [facility] Stool SEE RESULT 1 Blood, Screen [address] [place] [address] Blood, [phone] Screen Inr/Protime 02/25/2020 [facility] Inr 1.20 High 0.82-1.[address] [place], [place] [id number] [phone] Laboratory 02/25/2020 [facility] Lactic Acid 4.9 mmol/L Critical 0.5-2.0 [address] [place] [address] [phone] Type & Screen 02/25/2020 [facility] Patient O Positive [place] [address] [phone] Antibody Screen NEGATIVE Comp Metabolic 02/25/2020 [facility] Sodium 136 mmol/L Normal 135-[address] [place] [address] [phone] Potassium 4.3 mmol/L Normal 3.5-5.0 Chloride 107 [...] Egfr 52.8 >60 4 Laboratory test 02/25/2020 [facility] Magnesium 1.9 mg/dL Normal 1.9-2.[address] [place] [address] [phone] Troponin-I (TnI) 0.26 ng/mL Critical high <0.03 5 TSH (Thyroid Stim Horm) 1.56 mcIU/mL Normal 0.34-5.60 CBC Auto 02/25/2020 [facility] White Blood 12.3 10^3/uL High 3.5-10.[address] [place] [address] [phone] Red Blood Count 3.13 10^6/uL Low 4.18-5.48 [...] Blood Cells % 0.1 Laboratory test 02/25/2020 [facility] Packed Cells SEE RESULTS [address] BELO <[place] [address] NOTE> [phone] Laboratory test 02/12/2020 [facility] C Reactive 22.69 mg/L High <8.[address] [place] [address] [phone] Creatine Kinase(CK) 3086 U/L High 10-223 Erythrocyte Sed Rate 19 mm/Hr Normal 0-19 Ferritin > 1500.0 ng/mL High 24-336 7 Urinalysis Profile 02/12/2020 [facility] Urine Color Yellow [address] [place], [place] [id number] [phone] Urine Appearance Clear Urine Specific Reasnor 1.020 Normal 1.010-1.030 Urine pH 6 Normal 5-9 Urine Urobilinogen Negative Negative Urine Ketones Negative Negative Urine Protein 1+(30 mg/dL) Abnormal Negative Urine Leukocytes Negative Negative Urine Blood Negative Negative Urine Nitrite Negative Negative Urine Bilirubin Negative Negative Urine Glucose Negative Negative CBC Auto 02/12/2020 [facility] White Blood 5.2 10^3/uL Normal 3.5-10.[address] [place] [address] [phone] Red Blood Count 5.52 10^6/uL High 4.18-5.48 [...] Blood Cells % 0.1 Comp Metabolic 02/12/2020 [facility] Sodium 138 mmol/L Normal 135-[address] [place] [address] [phone] Potassium 3.6 mmol/L Normal 3.5-5.0 Chloride 104 [...] Egfr 76.6 >60 8 Lipid Profile 02/12/2020 [facility] Triglycerides 128 mg/dL 9 (Trig/Chol/HDL) [address] [place] [address] [phone] Cholesterol 169 mg/dL 10 HDL Cholesterol 57.9 mg/dL 11 LDL Cholesterol 86 mg/dL 12 Laboratory test 02/12/2020 [facility] Creatine 3114 U/L High 10-[address] Kinase(CK) [place] [address] [phone] Comp Metabolic 02/12/2020 [facility] Sodium 137 Normal 135- [address] mmol/[place] [address] [phone] Potassium 3.4 mmol/L Low 3.5-5.0 Chloride 106 [...] >60 13 Influenza A & B 02/08/2020 [facility] Flu AB Disclaimer (SEE NOTE) [address] [place] [address] [phone] Influenza A Molecular Negative Negative Influenza B Molecular Negative Negative 15 Laboratory test 02/08/2020 [facility] C Reactive 12.59 mg/L High <8.[address] [place] [address] [phone] Erythrocyte Sed Rate 12 mm/Hr Normal 0-19 TSH (Thyroid Stim Horm) 1.88 mcIU/mL Normal 0.34-5.60 Comp Metabolic Panel 02/08/2020 [facility] Sodium 134 mmol/L Low 135-[address] [place] [address] [phone] Potassium 4.0 mmol/L Normal 3.5-5.0 Chloride 101 [...] Egfr 79.1 >60 16 Laboratory test 02/08/2020 [facility] Creatine 2680 U/L High 10-[address] Kinase(CK) [place] [address] [phone] CBC Auto Diff 02/08/2020 [facility] White Blood 5.5 Normal 3.5 -10.[address] Count 10^3/[place] [address] [phone] Red Blood Count 5.31 10^6/uL Normal 4.18-5.48 [...] Blood Cells % 0.1 Basic Metabolic 01/28/2020 [facility] Sodium 133 mmol/L Low 135-[address] [place] [address] [phone] Chloride 101 mmol/L Normal 101-111 Co2 Carbon Dioxide 28 mmol/L Normal 22-32 Glucose 81 mg/dL Normal 70-100 Blood Urea Nitrogen 17 mg/dL Normal 6-24 Creatinine 1.03 mg/dL Normal 0.67-1.17 BUN/Creatinine Ratio 16.5 Normal 8-20 Calcium 8.2 mg/dL Low 8.6-10.3 Egfr Non- 68.3 >60 Egfr 82.7 >60 17 Potassium 4.2 mmol/L Normal 3.5-5.0 Anion Gap 4 mmol/L Normal 2-11 Cath Panel 01/25/2020 [facility] Partial 28.1 seconds Normal 26.0-38.[address] [place] [address] PTT [phone] CBC Auto 01/25/2020 [facility] White Blood 4.3 10^3/uL Normal 3.5-10.[address] Count [place], [place] [address] [phone] Red Blood Count 5.07 10^6/uL Normal 4.18-5.48 [...] Red Blood Cells % 0.0 Inr/Protime 01/25/2020 [facility] Inr 0.99 Normal 0.82-1.[address] [place] [address] [phone] Basic Metabolic 01/25/2020 [facility] Sodium 134 mmol/L Low 135-[address] [place], [place] [address] [phone] Potassium 4.0 mmol/L Normal 3.5-5.0 Chloride 101 mmol/L Normal 101-111 Co2 Carbon Dioxide 27 mmol/L Normal 22-32 Anion Gap 6 mmol/L Normal 2-11 Glucose 104 mg/dL High 70-100 Blood Urea Nitrogen 26 mg/dL High 6-24 Creatinine 1.21 mg/dL High 0.67-1.17 BUN/Creatinine Ratio 21.5 High 8-20 Calcium 8.0 mg/dL Low 8.6-10.3 Egfr Non- 56.7 >60 Egfr 68.6 >60 19 Laboratory test 01/19/2020 [facility] Clotest SEE RESULT [address] [place] [address] [phone] Stool Occult 01/19/2020 [facility] Stool Occult SEE RESULT 21 Blood Diag [address] Blood, [place] [address] [phone] CBC No Diff 01/19/2020 [facility] White Blood 5.3 10^3/uL Normal 3.5-[address] Count 0.8 [place] [address] [phone] Red Blood Count 4.93 10^6/uL Normal 4.18-5.48 Hemoglobin 12.5 g/dL Low 14.0-18.0 Hematocrit 38 % Low 42-52 Mean Corpuscular Volume 78 fL Low 80-94 Mean Corpuscular Hemoglobin 25 pg Low 27-31 Mean Corpuscular HGB Conc 33 g/dL Normal 31-36 Red Cell Distribution Width 15 % Normal 10-15 Platelet Count 157 10^3/uL Normal 150-450 Mean Platelet Volume 9.0 fL Normal 7.4-10.4 Laboratory test 01/19/2020 [facility] B-Type 361 pg/mL High <= [address] [place] [address] Peptide BNP [phone] Comp Metabolic 01/19/2020 [facility] Sodium 135 Normal 135- [address] mmol/[place] [address] [phone] Potassium 3.9 mmol/L Normal 3.5-5.0 Chloride 101 [...] >60 22 Iron & Iron Binding 01/19/2020 [facility] Iron 34 g/dL Low 50-[address] [place] [address] [phone] Unsaturated Iron Binding < 161 g/dL Total Iron Binding Capacity 176 g/dL Low 250-450 Transferrin 126 mg/dL Low 203-362 % Iron Saturation 19 % Normal 15-55 Protein 01/19/2020 [facility] Total 5.2 Abnormal 6.3 - Electrophoresis [address] [facility] Protein(Pep) g/dL 7.9 [place], [place] [address] [phone] Albumin 2.6 g/dL Abnormal 3.4-4.7 Alpha-1 Globulin 0.2 g/dL 0.1-0.3 Alpha-2 Globulin 0.9 g/dL 0.6-1.0 Beta Globulin 0.7 g/dL 0.7-1.2 Gamma Globulin 0.7 g/dL 0.6-1.6 Albumin/Globulin Ratio 1.01 Impression See Comment 23 Laboratory 01/19/2020 [facility] Erythropoietin 5.9 2.6 - 24 test finding [facility] [address] mIU/mL 18.5 [place], [place] [address] [phone] Xray 01/14/2020 [facility] Chest PA & Lat 2 <pending> [facility] [address] [facility] VWS [place], [place] [address] [phone] Laboratory 01/14/2020 [facility] Ferritin 708.4 High 24-336 test finding [facility] [address] [facility] ng/[place] [address] [phone] CBC Auto Diff 12/23/2019 [facility] White Blood Count 5.5 Normal 3.5-10. [address] 10^3/uL 8 [place] [address] [phone] Red Blood Count 4.74 10^6/uL Normal 4.18-5.48 [...] Red Blood Cells % 0.0 Laboratory 12/23/2019 [facility] D Dimer 261 ng/mL High Less 25 test finding [address] [place] [address] [phone] Comp Metabolic 12/23/2019 [facility] Sodium 136 Normal 135- [address] mmol/[place] [address] [phone] Potassium 4.0 mmol/L Normal 3.5-5.0 Chloride 102 [...] >60 26 Iron & Iron Binding 12/23/2019 [facility] Iron 33 g/dL Low 50-[address] [place] [address] [phone] Unsaturated Iron Binding < 205 g/dL Total Iron Binding Capacity 220 g/dL Low 250-450 Transferrin 157 mg/dL Low 203-362 % Iron Saturation 15 % Normal 15-55 CBC Auto 11/23/2019 [facility] White Blood 4.2 10^3/uL Normal 3.5-10.[address] [place] [address] [phone] Red Blood Count 4.69 10^6/uL Normal 4.18-5.48 [...] Blood Cells % 0.0 Comp Metabolic 11/23/2019 [facility] Sodium 139 mmol/L Normal 135-[address] [place] [address] [phone] Potassium 3.8 mmol/L Normal 3.5-5.0 Chloride 107 [...] Egfr 64.3 >60 27 Laboratory test 09/04/2019 [facility] Surgical SEE RESULT 28, [address] [place] [address] [phone] 1 SEE RESULT BELOW Name: BETO PEREZ : [address]: Akhil Núñez MD Acct: [id number] Unit: [id number] AGE: 89 Location: ED Re02/25/20 SEX: M Status: REG ER SPEC: [id number] DOMINGO: 02/25/[address] [facility] [address]: Kamila Morin MD REQ: [id number] RECD: 02/25/20 STATUS: TUNDE MEJIA DR: Serenity Martin MD _ SOURCE: STOOL SPDESC: ORDERED: Occult Bl, Scn Procedure Result Reported Site Stool Occult Blood (1) Final 02/25/20- 0715 ML Stool Occult Blood Positive * ML - Main Lab . END OF REPORT DEPARTMENT OF PATHOLOGY, [address] [place] [address] Jeet Hall M.D. Director [facility] # [id number] 2 Standard intensity warfarin therapeutic range: 2.0-3.0 High intensity warfarin therapeutic range: 2.5-3.5 3 Critical Result LACT:4.9 Called to [id number] at: 04:21:22 by:[id number] Read back by:[id number] [facility] Severe Sepsis and Septic Shock Management [...] (or dialysis) 5 Result TnIDx:0.26 Called to [id number] at: 04:38:06 by:[id number] Read back by: LIZ Troponin-I testing on Plasma Separator Tubes (PST) has a known false positive rate of 0.20-0.40%. All positive troponins reflex immediately to secondary confirmatory testing. Using the [employer] DxI 800 Access Immunoassay systems, the 99th percentile upper reference limit was demonstrated to be < 0.03 ng/mL. 6 SEE RESULTS BELOW [id number] OP PC TRANSFUSED 02/25/20 0550 [id number] OP PC TRANSFUSED 02/25/20 1256 7 DO THIS IN ABOUT 3-5 MONTHS Copy Result to: BAO RODNEY ([id number]) 8 Because ethnic data is not always [...] reduce sensitivity of test. Refer to the [employer] Test Catalog for collection information: [email or web address] As with all diagnostic procedures, the laboratory results obtained should be used in conjunction with other clinical information available to the physician, including confirmation by another method, as applicable. 15 Earth Sciences Professor: [id number] 16 Because ethnic data is not always [...] [address]: Julien Sheikh MD Acct: [id number] Unit: [id number] AGE: 89 Location: ENDO Re01/19/20 SEX: M Status: REG REF SPEC: [id number] DOMINGO: 01/19/20-[address] [facility] [address]: Julien Sheikh MD REQ: [id number] RECD: 01/19/20-9398 STATUS: COMP [facility] DR: Serenity Martin MD _ SOURCE: GAS ANTRUM SPDESC: ORDERED: Clotest Procedure Result Reported Site Clotest Final 01/20/20- 0943 ML Clotest Negative * ML - Main Lab . END OF REPORT DEPARTMENT OF PATHOLOGY, [address] [place] [address] Jeet Hall M.D. Director [facility] # [id number] 21 SEE RESULT BELOW Name: BETO PEREZ : [address]: Julien Sheikh MD Acct: [id number] Unit: [id number] AGE: 89 Location: ENDO Re01/19/20 SEX: M Status: REG REF SPEC: [id number] DOMINGO: 01/19/20-[address] [facility] [address]: Julien Sheikh MD REQ: [id number] RECD: 01/19/20 STATUS: TUNDE MEJIA DR: Serenity Martin MD _ SOURCE: STOOL SPDESC: ORDERED: Occult Bl, Diag Procedure Result Reported Site Stool Occult Blood (1) Final 01/19/20- 1535 ML Stool Occult Blood Negative Collection Date (1) 01/19/20 * ML - Main Lab . END OF REPORT DEPARTMENT OF PATHOLOGY, [address] [place] [address] Jeet Hall M.D. Director [facility] # [id number] 22 Because ethnic data is not always [...] protein on serum electrophoresis. Test Performed by: [place] [address] Commissions Analyst: Norberto Cutler M.D. Ph.D.; CLIA# [id number] 24 Test Performed by: [place] [address] Commissions Analyst: Norberto Cutler M.D. Ph.D.; CLIA# [id number] 25 Please note: The following may produce [...] 5 Kidney failure <15 (or dialysis) 28 [id number] 29 SEE RESULT BELOW Name: BETO PEREZ : [address]: Oj Quintero MD Acct: [id number] Unit: [id number] AGE: 89 Location: [facility] Re09/04/19 SEX: M Status: REG REF SPEC: [id number] DOMINGO: 09/04/[address] [facility] [address]: Oj Quintero MD REQ: [id number] RECD: 09/04/197128 STATUS: MANPREET MEJIA DR: Serenity Hanson MD _ ORDERED: LEVEL 4 COMMENTS: [id number] FINAL DIAGNOSIS Skin, right mid forehead, excision: -- Scar, excised. -- No evidence of residual basal cell carcinoma. COMMENT: The previous lesion at this site ([id number]) has been completely excised. CLINICAL HISTORY See [facility] [id number] PRE-OPERATIVE DIAGNOSIS Basal cell carcinoma, suture lopez 12:00 medial apex margin GROSS DESCRIPTION The specimen is received in formalin labeled, Excision Basal Cell Carcinoma Right Mid Forehead, Suture Lopez 12:00 Medial Ridge Margin, and consists of a 3.0 x [...] 1103 END OF REPORT DEPARTMENT OF PATHOLOGY, [address] [place] [address] Jeet Hall M.D. Director [facility] # [id number] Procedures Date Code Description Status 02/24/2020 95098 Echocardiogram, Limited Study Completed 02/24/2020 90009 Echocardiogram, Limited Study Completed 02/24/2020 08370 Echocardiogram, Limited Study Completed 02/24/2020 86817 EKG Tracing & Interpretation Completed 01/28/2020 15923 Cath PLMT&NJX L Ventriculog Img S&I Completed 01/20/2020 29744 EKG Tracing & Interpretation Completed 01/19/2020 81879 Endoscopy Upper GI Biopsy Completed 01/11/2020 44898 ECHO Transthoracic, Real-Time 2D With Doppler And Color Completed Flow 01/11/2020 99442 ECHO Transthoracic, Real-Time 2D With Doppler And Color Completed Flow 12/21/2019 16016 EKG Tracing & Interpretation Completed 12/07/2019 99823 Inject/Drain Joint/Bursa Major W/O US Completed 12/15/2013 58152598 Colonoscopy Completed 10/21/2007 89739139 Colonoscopy Completed 02/18/2001 66985479 Colonoscopy Completed Medical Devices Description No Information Available Encounters Type Date Location Provider Dx Diagnosis Office Visit 02/19/2020 [facility] Internal Yefri Guevara.10 Myalgia, 2:00p Medicine Meri Camargo M.D. unspecified site K59.00 Constipation, unspecified Office Visit 02/17/2020 11:38a [facility] Dulce M62.82 R[facility]domyolysis Assoc,pc Matt Andrews Hospitalists I25.5 Ischemic cardiomyopathy I10 Essential (primary) hypertension Office Visit 02/16/2020 11:37a [facility] Marisa Lira M62.82 Rhabdomyolysis Assoc,pc N.PRenita Hospitalists I10 Essential (primary) hypertension I25.5 Ischemic cardiomyopathy Office Visit 02/15/2020 11:36a [facility] Martir M62.82 Rhabdomyolysis Assoc,diana Case M.D. Hospitalists I10 Essential (primary) hypertension Office Visit 02/13/2020 11:34a [facility] Martir M62.82 Rhabdomyolysis Assoc,diana Case M.D. Hospitalists I10 Essential (primary) hypertension Office Visit 02/08/2020 9:00a [facility] Internal Serenity M79.10 Myalgia, Gissel Martin M.D. unspecified site Ccmob J06.9 Acute upper respiratory infection, unspecified R19.7 Diarrhea, unspecified Office Visit 02/02/2020 Sourav Blake 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, 3:00p Cardiology Kris Brush MD, unspecified [place] [employer] AT [facility] Office Visit 01/20/2020 Zoya Piedra D50.9 Iron deficiency 10:30a Cardiology Kelsey Rodney anemia, unspecified R60.0 Localized edema 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, unspecified I10 Essential (primary) hypertension I50.22 Chronic systolic (congestive) heart failure I49.5 Sick sinus syndrome I49.3 Ventricular premature depolarization I45.19 Other right bundle-branch block I45.2 Bifascicular block R94.31 Abnormal electrocardiogram [ECG] [EKG] Office Visit 01/14/2020 [facility] Gastroenterology Vanessa D50.9 Iron deficiency 1:10p Alison anemia, Hunter, CAD PROGRAMMER unspecified R60.0 Localized edema 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, unspecified Office Visit 12/31/2019 8:40a [facility] Internal Serenity R60.0 Localized edema Medicine - Mary Jo Martin M.D. M25.562 Pain in left knee Office Visit 12/25/2019 9:15a [facility] Genojeovany Clemens, M25.562 [facility] M25.462 Effusion, left knee M17.12 Unilateral primary osteoarthritis, left knee Office Visit 12/21/2019 Danielson Bao Piedra 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, 3:20p Cardiology Of Kelsey Rodney unspecified [facility] I10 Essential (primary) hypertension D64.9 Anemia, unspecified I49.3 Ventricular premature depolarization R60.0 Localized edema I82.402 Acute embolism and thombos unsp deep veins of l low extrem I45.89 Other specified conduction disorders R94.31 Abnormal electrocardiogram [ECG] [EKG] Office Visit 12/07/2019 9:00a [facility] M25.562 [facility] M25.462 Effusion, left knee M17.12 Unilateral primary osteoarthritis, left knee M54.32 Sciatica, left side Assessments Date Code Description Provider 02/25/2020 K63.1 Perforation of intestine Bernie Lozoya MD (nontraumatic) 02/24/2020 R55 Syncope and collapse Bao Rodney M.D. 02/24/2020 R55 Syncope and collapse [facility] [...] Andrews D.O. 02/18/2020 I10 Essential (primary) hypertension Ruby HeardORenita 02/18/2020 R74.8 Abnormal levels of other serum Dulce Andrews D.O. enzymes 02/17/2020 M62.82 Rhabdomyolysis Ruby HeardORenita 02/17/2020 I25.5 Ischemic cardiomyopathy Ruby HeardORenita 02/17/2020 I10 Essential (primary) hypertension Ruby HeardO. 02/16/2020 M62.82 Rhabdomyolysis Marisa Lira, N.P. 02/16/2020 I10 Essential (primary) hypertension Marisa Lira, N.P. 02/16/2020 I25.5 Ischemic cardiomyopathy Marisa iLra, N.P. 02/15/2020 M62.82 Rhabdomyolysis Martir Case M.D. [...] 02/02/2020 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, unspecified Alexandrea Brush MD, [facility] 01/28/2020 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, unspecified Shimon Clifford M.D., [facility] 01/20/2020 D50.9 Iron deficiency anemia, unspecified Bao [...] Bao Rodney M.D. 01/20/2020 I45.2 Bifascicular block Boa Rodney M.D. 01/20/2020 R94.31 Abnormal electrocardiogram [ECG] Bao Rodney M.D. [EKG] 01/19/2020 K29.70 Gastritis, unspecified, without Julien Sheikh MD bleeding 01/19/2020 D50.9 Iron deficiency anemia, unspecified Julien Sheikh MD 01/14/2020 D50.9 Iron deficiency anemia, unspecified Vanessa Hunter NP 01/14/2020 R60.0 Localized edema Vanessa Hunter NP 01/14/2020 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, unspecified Vanessa Hunter, NILDA [...] Serenity Martin M.D. 11/27/2019 D64.9 Anemia, unspecified Seernity Martin M.D. Plan of Treatment Future Appointment(s):03/18/2020 8:45 am - Geno Clemens M.D. at [facility] at [facility]/14/2020 - Vanessa Hunter, NPD50.9 Iron deficiency anemia, jbtytjhvqwiH27.0 Localized zvwzlJ24.9 Cardiomyopathy, unspecified Functional Status Description No Information Available Mental Status Description No Information Available Referrals Refer to Reason for Referral Status Appt Date Julien Sheikh MD Scheduled 01/14/2020 [address] [place] [phone]
--- OUTSIDE RECORDS SUMMARY | 2020-03-04 10:27 | XMS REPORT | Continuity of Care Document ---
:1930 External Reference #:[id number] Author Name Martir Case M.D. (transmitted by agent of provider Jenny Oliver) Address [address] [place] [address] Care Team Providers Name Role Phone Glenda Physical Therapy Care Team Information Wick Tender [phone] [place] - Physical Therapist Serenity Martin MD - Internal Care Team Information Wick Tender Medicine Bao Rodney MD - Cardiovascular Care Team Information Wick Tender Disease Julien Sheikh MD - Gastroenterology Care Team Information Wick Tender [phone] Problems Active Problems Provider Date Edema of [...] Injection Technetium TC 99M Golden Champagne, DO [facility] 04/20/2019 Tetrofosmin, Per Unit Dose Up To 40 Millicuries Injection Technetium TC 99M Golden Champagne, DO [facility] 04/20/2019 Tetrofosmin, Per Unit Dose [...] CPT Code Status Date Vaccine Lot # [id number] Given 09/25/2019 Influenza Virus Vaccine, Quadrivalent, Split, Preservative Free [id number] Given 09/24/2018 Influenza Virus Vaccine, Quadrivalent, Split, Preservative Free [id number] Given 09/23/2017 Influenza Virus Vaccine, Quadrivalent, Split, [id number] Preservative Free 88976 Given 09/23/2017 Pneumococcal Conjugate Vaccine 13 Valent For [id number] Intramuscular Use Vital Signs Date Vital Result [...] H/L Range Note Date Stool Occult 02/25/2020 [facility] Stool SEE RESULT 1 Blood, Screen [address] [place] [address] Blood, [phone] Screen Inr/Protime 02/25/2020 [facility] Inr 1.20 High 0.82-1.[address] [place], [place] [phone] Laboratory 02/25/2020 [facility] Lactic Acid 4.9 mmol/L Critical 0.5-2.0 [address] [place] [address] [phone] Type & Screen 02/25/2020 [facility] Patient [place] [address] [phone] Antibody Screen NEGATIVE Comp Metabolic 02/25/2020 [facility] Sodium 136 mmol/L Normal 135-[address] [place] [address] [phone] Potassium 4.3 mmol/L Normal 3.5-5.0 Chloride 107 [...] Egfr 52.8 >60 4 Laboratory test 02/25/2020 [facility] Magnesium 1.9 mg/dL Normal 1.9-2.[address] [place] [address] [phone] Troponin-I (TnI) 0.26 ng/mL Critical high <0.03 5 TSH (Thyroid Stim Horm) 1.56 mcIU/mL Normal 0.34-5.60 CBC Auto 02/25/2020 [facility] White Blood 12.3 10^3/uL High 3.5-10.[address] [place] [address] [phone] Red Blood Count 3.13 10^6/uL Low 4.18-5.48 [...] Blood Cells % 0.1 Laboratory test 02/12/2020 [facility] C Reactive 22.69 mg/L High <8.[address] [place] [address] [phone] Creatine Kinase(CK) 3086 U/L High 10-223 Erythrocyte Sed Rate 19 mm/Hr Normal 0-19 Ferritin > 1500.0 ng/mL High 24-336 6 Urinalysis Profile 02/12/2020 [facility] Urine Color Yellow [address] [place] [address] [phone] Urine Appearance Clear Urine Specific [place] 1.020 Normal 1.010-1.030 Urine pH 6 Normal 5-9 Urine Urobilinogen Negative Negative Urine Ketones Negative Negative Urine Protein 1+(30 mg/dL) Abnormal Negative Urine Leukocytes Negative Negative Urine Blood Negative Negative Urine Nitrite Negative Negative Urine Bilirubin Negative Negative Urine Glucose Negative Negative CBC Auto 02/12/2020 [facility] White Blood 5.2 10^3/uL Normal 3.5-10.[address] [place] [address] [phone] Red Blood Count 5.52 10^6/uL High 4.18-5.48 [...] Blood Cells % 0.1 Comp Metabolic 02/12/2020 [facility] Sodium 138 mmol/L Normal 135-[address] [place] [address] [phone] Potassium 3.6 mmol/L Normal 3.5-5.0 Chloride 104 [...] Egfr 76.6 >60 7 Lipid Profile 02/12/2020 [facility] Triglycerides 128 mg/dL 8 (Trig/Chol/HDL) [address] [place] [address] [phone] Cholesterol 169 mg/dL 9 HDL Cholesterol 57.9 mg/dL 10 LDL Cholesterol 86 mg/dL 11 Laboratory test 02/12/2020 [facility] Creatine 3114 U/L High 10-[address] Kinase(CK) [place] [address] [phone] Comp Metabolic 02/12/2020 [facility] Sodium 137 Normal 135- [address] mmol/[place] [address] [phone] Potassium 3.4 mmol/L Low 3.5-5.0 Chloride 106 [...] >60 12 Influenza A & B 02/08/2020 [facility] Flu AB Disclaimer (SEE NOTE) [address] [place] [address] [phone] Influenza A Molecular Negative Negative Influenza B Molecular Negative Negative 14 Laboratory test 02/08/2020 [facility] C Reactive 12.59 mg/L High <8.[address] [place] [address] [phone] Erythrocyte Sed Rate 12 mm/Hr Normal 0-19 TSH (Thyroid Stim Horm) 1.88 mcIU/mL Normal 0.34-5.60 Comp Metabolic Panel 02/08/2020 [facility] Sodium 134 mmol/L Low 135-[address] [place] [address] [phone] Potassium 4.0 mmol/L Normal 3.5-5.0 Chloride 101 [...] Egfr 79.1 >60 15 Laboratory test 02/08/2020 [facility] Creatine 2680 U/L High 10-[address] Kinase(CK) [place] [address] [phone] CBC Auto Diff 02/08/2020 [facility] White Blood 5.5 Normal 3.5 -10.8 101 [facility] Count 10^3/[place] [address] [phone] Red Blood Count 5.31 10^6/uL Normal 4.18-5.48 [...] Blood Cells % 0.1 Basic Metabolic 01/28/2020 [facility] Sodium 133 mmol/L Low 135-[address] [place] [address] [phone] Chloride 101 mmol/L Normal 101-111 Co2 Carbon Dioxide 28 mmol/L Normal 22-32 Glucose 81 mg/dL Normal 70-100 Blood Urea Nitrogen 17 mg/dL Normal 6-24 Creatinine 1.03 mg/dL Normal 0.67-1.17 BUN/Creatinine Ratio 16.5 Normal 8-20 Calcium 8.2 mg/dL Low 8.6-10.3 Egfr Non- 68.3 >60 Egfr 82.7 >60 16 Potassium 4.2 mmol/L Normal 3.5-5.0 Anion Gap 4 mmol/L Normal 2-11 Cath Panel 01/25/2020 [facility] Partial 28.1 seconds Normal 26.0-38.[address] [place] [address] PTT [phone] CBC Auto 01/25/2020 [facility] White Blood 4.3 10^3/uL Normal 3.5-10.[address] [place] [address] [phone] Red Blood Count 5.07 10^6/uL Normal 4.18-5.48 [...] Red Blood Cells % 0.0 Inr/Protime 01/25/2020 [facility] Inr 0.99 Normal 0.82-1.[address] [place] [address] [phone] Basic Metabolic 01/25/2020 [facility] Sodium 134 mmol/L Low 135-145 Panel [address] [place] [address] [phone] Potassium 4.0 mmol/L Normal 3.5-5.0 Chloride 101 mmol/L Normal 101-111 Co2 Carbon Dioxide 27 mmol/L Normal 22-32 Anion Gap 6 mmol/L Normal 2-11 Glucose 104 mg/dL High 70-100 Blood Urea Nitrogen 26 mg/dL High 6-24 Creatinine 1.21 mg/dL High 0.67-1.17 BUN/Creatinine Ratio 21.5 High 8-20 Calcium 8.0 mg/dL Low 8.6-10.3 Egfr Non- 56.7 >60 Egfr 68.6 >60 18 Laboratory test 01/19/2020 [facility] Clotest SEE RESULT [address] [place] [address] [phone] Stool Occult 01/19/2020 [facility] Stool Occult SEE RESULT 20 Blood Diag [address] Blood, [place] [address] [phone] CBC No Diff 01/19/2020 [facility] White Blood 5.3 10^3/uL Normal 3.5-[address] Count 0.8 [place] [address] [phone] Red Blood Count 4.93 10^6/uL Normal 4.18-5.48 Hemoglobin 12.5 g/dL Low 14.0-18.0 Hematocrit 38 % Low 42-52 Mean Corpuscular Volume 78 fL Low 80-94 Mean Corpuscular Hemoglobin 25 pg Low 27-31 Mean Corpuscular HGB Conc 33 g/dL Normal 31-36 Red Cell Distribution Width 15 % Normal 10-15 Platelet Count 157 10^3/uL Normal 150-450 Mean Platelet Volume 9.0 fL Normal 7.4-10.4 Laboratory test 01/19/2020 [facility] B-Type 361 pg/mL High <= [address] [place] [address] Peptide BNP [phone] Comp Metabolic 01/19/2020 [facility] Sodium 135 Normal 135- [address] mmol/[place] [address] [phone] Potassium 3.9 mmol/L Normal 3.5-5.0 Chloride 101 [...] >60 21 Iron & Iron Binding 01/19/2020 [facility] Iron 34 g/dL Low 50-[address] [place] [address] [phone] Unsaturated Iron Binding < 161 g/dL Total Iron Binding Capacity 176 g/dL Low 250-450 Transferrin 126 mg/dL Low 203-362 % Iron Saturation 19 % Normal 15-55 Protein 01/19/2020 [facility] Total 5.2 Abnormal 6.3 - Electrophoresis [address] Protein(Pep) g/dL 7.9 [place] [address] [phone] Albumin 2.6 g/dL Abnormal 3.4-4.7 Alpha-1 Globulin 0.2 g/dL 0.1-0.3 Alpha-2 Globulin 0.9 g/dL 0.6-1.0 Beta Globulin 0.7 g/dL 0.7-1.2 Gamma Globulin 0.7 g/dL 0.6-1.6 Albumin/Globulin Ratio 1.01 Impression See Comment 22 Laboratory 01/19/2020 [facility] Erythropoietin 5.9 2.6 - 23 test finding [address] mIU/mL 18.5 [place] [address] [phone] Xray 01/14/2020 [facility] Chest PA & Lat 2 <pending> [address] [place] [address] [phone] Laboratory 01/14/2020 [facility] Ferritin 708.4 High 24-336 test finding [address] ng/[place] [address] [phone] CBC Auto Diff 12/23/2019 [facility] White Blood Count 5.5 Normal 3.5-10. [address] 10^3/uL 8 [place] [address] [phone] Red Blood Count 4.74 10^6/uL Normal 4.18-5.48 [...] Red Blood Cells % 0.0 Laboratory 12/23/2019 [facility] D Dimer 261 ng/mL High Less [address] [place] [address] [phone] Comp Metabolic 12/23/2019 [facility] Sodium 136 Normal 135- [address] mmol/[place] [address] [phone] Potassium 4.0 mmol/L Normal 3.5-5.0 Chloride 102 [...] >60 25 Iron & Iron Binding 12/23/2019 [facility] Iron 33 g/dL Low 50-[address] [place] [address] [phone] Unsaturated Iron Binding < 205 g/dL Total Iron Binding Capacity 220 g/dL Low 250-450 Transferrin 157 mg/dL Low 203-362 % Iron Saturation 15 % Normal 15-55 CBC Auto 11/23/2019 [facility] White Blood 4.2 10^3/uL Normal 3.5-10.[address] [place] [address] [phone] Red Blood Count 4.69 10^6/uL Normal 4.18-5.48 [...] Blood Cells % 0.0 Comp Metabolic 11/23/2019 [facility] Sodium 139 mmol/L Normal 135-[address] [place] [address] [phone] Potassium 3.8 mmol/L Normal 3.5-5.0 Chloride 107 [...] Egfr 64.3 >60 26 Laboratory test 09/04/2019 [facility] Surgical SEE RESULT 27, [address] [place] [address] [phone] 1 SEE RESULT BELOW Name: BETO PEREZ : [address]: Akhil Núñez MD Acct: [id number] Unit: [id number] AGE: 89 Location: ED Re02/25/20 SEX: M Status: REG ER SPEC: [id number] DOMINGO: 02/25/20 [facility] DR: Kamila Morin MD REQ: [id number] RECD: 02/25/20 STATUS: TUNDE MEJIA DR: Serenity Martin MD _ SOURCE: STOOL SPDESC: ORDERED: Occult Bl, Scn Procedure Result Reported Site Stool Occult Blood (1) Final 02/25/20- 0715 ML Stool Occult Blood Positive * ML - Main Lab . END OF REPORT DEPARTMENT OF PATHOLOGY, [address] [place] [address] Jeet Hall M.D. Director [facility] # [id number] 2 Standard intensity warfarin therapeutic range: 2.0-3.0 High intensity warfarin therapeutic range: 2.5-3.5 3 Critical Result LACT:4.9 Called to [id number] at: 04:21:22 by:[id number] Read back by:[id number] [facility] Severe Sepsis and Septic Shock Management [...] (or dialysis) 5 Result TnIDx:0.26 Called to [id number] at: 04:38:06 by:[id number] Read back by: [id number] Troponin-I testing on Plasma Separator Tubes (PST) has a known false positive rate of 0.20-0.40%. All positive troponins reflex immediately to secondary confirmatory testing. Using the [employer] DxI 800 Access Immunoassay systems, the 99th percentile upper reference limit was demonstrated to be < 0.03 ng/mL. 6 DO THIS IN ABOUT 3-5 MONTHS Copy Result to: BAO RODNEY ([id number]) 7 Because ethnic data is not always [...] reduce sensitivity of test. Refer to the [facility] Lab Test Catalog for collection information: [email or web address] As with all diagnostic procedures, the laboratory results obtained should be used in conjunction with other clinical information available to the physician, including confirmation by another method, as applicable. 14 Patient Access: [email or web address] 15 Because ethnic data is not always [...] [address]: Julien Sheikh MD Acct: [id number] Unit: [id number] AGE: 89 Location: ENDO Re01/19/20 SEX: M Status: REG REF SPEC: [id number] DOMINGO: 01/19/20-1306 [facility] DR: Julien Sheikh MD REQ: [id number] RECD: 01/19/20-151 STATUS: TUNDE MEJIA DR: Serenity Martin MD _ SOURCE: GEENA ANTRUM SPDESC: ORDERED: Clotest Procedure Result Reported Site Clotest Final 01/20/20- 942 ML Clotest Negative * ML - Main Lab . END OF REPORT DEPARTMENT OF PATHOLOGY, [address] [place] [address] Jeet Hall M.D. Director [facility] # [id number] 20 SEE RESULT BELOW Name: BETO PEREZ : [address]: Julien Sheikh MD Acct: [id number] Unit: [id number] AGE: 89 Location: ENDO Re01/19/20 SEX: M Status: REG REF SPEC: [id number] DOMINGO: 01/19/20-1306 [facility] DR: Julien Sheikh MD REQ: [id number] RECD: 01/19/20152 STATUS: COMP OTHR DR: Serenity Martin MD _ SOURCE: STOOL SPDESC: ORDERED: Occult Bl, Diag Procedure Result Reported Site Stool Occult Blood (1) Final 01/19/20- 1535 ML Stool Occult Blood Negative Collection Date (1) 01/19/20 * ML - Main Lab . END OF REPORT DEPARTMENT OF PATHOLOGY, [address] [place] [address] Jeet Hall M.D. Director [facility] # [id number] 21 Because ethnic data is not always [...] protein on serum electrophoresis. Test Performed by: [place] [address] Hydraulic Dredge Operator: Norberto Cutler M.D. Ph.D.; CLIA# [id number] 23 Test Performed by: [facility] [place] [address] Hydraulic Dredge Operator: Norberto Cutler M.D. Ph.D.; CLIA# [id number] 24 Please note: The following may produce [...] 5 Kidney failure <15 (or dialysis) 27 [id number] SEE RESULT BELOW Name: BETO PEREZ : [address]: Oj Quintero MD Acct: [id number] Unit: [id number] AGE: 89 Location: [facility] Re09/04/19 SEX: M Status: REG REF SPEC: [id number] DOMINGO: 09/04/19 [facility] DR: Oj Quintero MD REQ: [id number] RECD: 09/04/19 STATUS: MANPREET MEJIA DR: Serenity Hanson MD _ ORDERED: LEVEL 4 COMMENTS: [id number] FINAL DIAGNOSIS Skin, right mid forehead, excision: -- Scar, excised. -- No evidence of residual basal cell carcinoma. COMMENT: The previous lesion at this site ([id number]) has been completely excised. CLINICAL HISTORY See [facility] [phone] PRE-OPERATIVE DIAGNOSIS Basal cell carcinoma, suture lopez 12:00 medial apex margin GROSS DESCRIPTION The specimen is received in formalin labeled, Excision Basal Cell Carcinoma Right Mid Forehead, Suture Lopez 12:00 Medial Evans Margin, and consists of a 3.0 x [...] END OF REPORT DEPARTMENT OF PATHOLOGY, [address] [place] [address] Jeet Hall M.D. Director [facility] # [id number] Procedures Date Code Description Status 02/24/2020 61096 Echocardiogram, Limited Study Completed 02/24/2020 06384 Echocardiogram, Limited Study Completed 02/24/2020 55079 EKG Tracing & Interpretation Completed 01/28/2020 96926 Cath PLMT&NJX L Ventriculog Img S&I Completed 01/20/2020 51589 EKG Tracing & Interpretation Completed 01/19/2020 12604 Endoscopy Upper GI Biopsy Completed 01/11/2020 90720 ECHO Transthoracic, Real-Time 2D With Doppler And Color Completed Flow 01/11/2020 49740 ECHO Transthoracic, Real-Time 2D With Doppler And Color Completed Flow 12/21/2019 42384 EKG Tracing & Interpretation Completed 12/07/2019 09144 Inject/Drain Joint/Bursa Major W/O US Completed 12/15/2013 85705676 Colonoscopy Completed 10/21/2007 57004796 Colonoscopy Completed 02/18/2001 06512679 Colonoscopy Completed Medical Devices Description No Information Available Encounters Type Date Location Provider Dx Diagnosis Office Visit 02/19/2020 [facility] Internal Serenity Martin M79.10 Myalgia, 2:00p Gissel Camargo M.D. unspecified site K59.00 Constipation, unspecified Office Visit 02/13/2020 11:34a [place] Jorge Mcmahan M62.82 Rhabdomyolysis Assoc,diana Case M.D. Hospitalists I10 Essential (primary) hypertension Office Visit 02/08/2020 9:00a [facility] Andrés [place]enton M79.10 Myalgia, Gissel Martin M.D. unspecified site Carltonob J06.9 Acute upper respiratory infection, unspecified R19.7 Diarrhea, unspecified Office Visit 02/02/2020 [place] 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, 3:00p Cardiology Of MD Trudi, unspecified Blood Collector AT [facility] Office Visit 01/20/2020 [place] Bao Piedra D50.9 Iron deficiency 10:30a Cardiology Kelsey Rodney anemia, unspecified R60.0 Localized edema 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, unspecified I10 Essential (primary) hypertension I50.22 Chronic systolic (congestive) heart failure I49.5 Sick sinus syndrome I49.3 Ventricular premature depolarization I45.19 Other right bundle-branch block I45.2 Bifascicular block R94.31 Abnormal electrocardiogram [ECG] [EKG] Office Visit 01/14/2020 [facility] Gastroenterology Vanessa D50.9 Iron deficiency 1:10p Alison anemia, Elsa, BI APPLICATION DEVELOPER unspecified R60.0 Localized edema 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, unspecified Office Visit 12/31/2019 8:40a [facility] Internal Serenity R60.0 Localized edema Gissel Martin M.D. M25.562 Pain in left knee Office Visit 12/25/2019 9:15a [place] [facility] Geno Clemens, M25.562 Pain in left at [place] knee M25.462 Effusion, left knee M17.12 Unilateral primary osteoarthritis, left knee Office Visit 12/21/2019 [place] Bao Piedra 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, 3:20p Cardiology Of Kelsey Rodney unspecified Blood Collector I10 Essential (primary) hypertension D64.9 Anemia, unspecified I49.3 Ventricular premature depolarization R60.0 Localized edema I82.402 Acute embolism and thombos unsp deep veins of l low extrem I45.89 Other specified conduction disorders R94.31 Abnormal electrocardiogram [ECG] [EKG] Office Visit 12/07/2019 9:00a [place] [facility] Geno Sarath, M25.562 Pain in left at [place] M.DRenita knee M25.462 Effusion, left knee M17.12 Unilateral [...] Rodney M.D. 02/24/2020 D50.9 Iron deficiency anemia, seified Bao Rodney M.D. 02/24/2020 R55 Syncope and collapse Bao Rodney M.D. 02/19/2020 M79.10 Myalgia, unspecified site Serenity Martin M.D. 02/19/2020 K59.00 Constipation, unspecified Serenity Martin M.D. 02/14/2020 M62.82 Rhabdomyolysis Martir Case M.D. [...] 02/02/2020 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, unspecified Alexandrea Brush MD, [facility], [facility] 01/28/2020 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, unspecified Shimon Clifford M.D., [facility], [facility] 01/20/2020 D50.9 Iron deficiency anemia, unspecified Bao [...] Hunter NP 01/14/2020 R60.0 Localized edema Vanessa Hunter, BI APPLICATION DEVELOPER 01/14/2020 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, unspecified Vanessa Hunter, BI APPLICATION DEVELOPER 01/11/2020 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, unspecified Bao Rodney M.D. [...] 8:45 am - [facility] Clem[facility] at Dpoxdr8702/24/2020 - Bao Rodney M.D.M79.10 Myalgia, unspecified siteM62.82 YzqcqmhhieehsgY31 Essential (primary) efdhkdskzmpwG08.9 Cardiomyopathy, unspecifiedRecommendations:take torsemide 10 mg on 3.26.20 am and call 3.27 to report on urination, change in weight and changein edema.D50.9 Iron deficiency anemia, [id number] Syncope and collapseNew Orders:[facility] Outpatient Telemetry, Ordered: 02/24/20Follow up:tele ov in 2 weeks. Functional Status Description No Information Available Mental Status Description No Information Available Referrals Refer to Reason for Referral Status Appt Date Julien Sheikh MD Scheduled 01/14/2020 [address] [place] [address] [phone]
[2020-03-04] MEDS ORDERED: Acetaminophen TAB* 325 MG PO PRN (12:24)
[2020-03-04] MEDS ORDERED: Senna TAB 8.6 mg* TAB PO PRN (12:36)
[2020-03-04] MEDS ORDERED: Furosemide TAB* 20 MG PO ONE (14:06)
--- NOTE | 2020-03-04 15:51 | CONS ---
GASTROENTEROLOGY CONSULT: DATE OF CONSULT: 03/04/20 REFERRING PHYSICIAN: Bernie Lozoya MD REASON FOR CONSULTATION: Anemia and heme-positive stool in an 89-year-old man with complex recent course including edema, pleural effusions, depressed ejection fraction, rhabdomyolysis, and then emergency sigmoid colectomy for perforated diverticulitis while taking prednisone 20 mg for inflammatory myopathy of unknown cause. 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 Stool was heme positive on the day of admission preop and is still heme positive. At surgery, he had examination of the small bowel that appeared unremarkable and resection of abnormal sigmoid colon with construction of the ostomy. Since then, he has slowly recuperated. He has begun taking oral feedings. There has been concern as his blood count, which had been in the 12s the most part, was suddenly around 8 on admission . At that time, the history given was of dark stool for a few days. There had been concern about possible iron deficiency anemia, though labs in December, January, and early January had shown a slightly low hemoglobin of 12.5 to 12.9, MCV in the upper 70s which had been his baseline attributed to thalassemia trait and his iron saturation was 15 and then 90% with ferritin 708 mid January 2020. It was the first ferritin recorded in the database. Erythropoietin same mid January date was 5.9 (normal 2.6 to 18.5). Upper endoscopy 01/19/20 showed mild gastritis consistent with a low-dose aspirin use and no other significant pathology. He had had a colonoscopy in 2013 that was remarkable only for diverticulosis. In 2000, he had had a tubulovillous polyp removed in the right colon and there was a negative exam October 2007. PAST MEDICAL HISTORY: 1. Impaired LV function-cardiac catheterization 01/28/20 showed no atherosclerotic explanation. 2. History of diverticulosis-with perforated lesion and abscess 02/25/20. 3. Thalassemia minor. 4. Inflammatory myopathy. 5. Hard of hearing. 6. History of hypertension. 7. Chronic dyspepsia-on omeprazole 20 mg daily in 2016. 8. Hypertension-mild without sequelae. 9. Gout-occasional. MEDICATIONS AT HOME: 1. Torsemide 10 mg. 2. Metoprolol 25. 3. Pantoprazole, dose uncertain. 4. Oxycodone, frequency uncertain. 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 REVIEW OF SYSTEMS: During the admission in early January, there was elevation of CPK with a maximal value of 40.53 on 02/14/20. He was seen by Dr. Bowen in consult and multiple serum markers were negative. Cause was unclear. Dr. Bowen felt that none of his medications were highly suspect. He was discharged home on 20 mg prednisone. EXAM: He is an elderly man in bed, in no overt cardiorespiratory distress. He is afebrile, pulse 58, blood pressure 125/51. HEENT exam shows multiple day stubble. There is no gross rash. He has no adenopathy. Breath sounds are diminished. Cooperation is poor with hardness of hearing. Heart sounds are regular. The abdomen is mildly rounded with a left mid abdominal stoma draining some very dark brown material. There is no overt blood and no solid stool. He has an intact midline abdominal scar. Bowel sounds are active and normal in pitch. There is no tenderness. Extremities show 1 to 2+ edema at the ankles. There is no gross asymmetry. LABS: Most recent today, hemoglobin 8.2, hematocrit 24, MCV 83, platelets 220, white count 6.9. Sodium 145, potassium 3.7, BUN 27, creatinine 1.13, bilirubin 0.5, alk phos 56, albumin 1.5, troponin yesterday 0.28 consistent with elevations since 02/25/20. IMPRESSION: This 89-year-old man presenting with an acute abdomen and septic shock on 02/25/20 just a week after an admission for rhabdomyolysis of unclear cause was noted at the same time to be severely anemic with hemoglobin 8 and then on hydration down to 6.6. He received 4 units transfusion and hemoglobin seemed to stabilize in the upper 7s. Stool coming through his stoma was negative postop. The question arises as to his having gastrointestinal problems that have not been revealed in the course of investigations in the last few months, which include upper endoscopy, CT scans, inspection of the entire gut intraoperatively and then removal of part of the sigmoid colon. He was Hemoccult negative in the gastrointestinal office in early January and then heme negative the day of the endoscopy at the time when no clinical bleeding was occurring. It thus seems likely that the current abruptly worsened anemia is combination of blood loss from diverticular disease that was probably active a few days prior to his septic presentation and previous comorbidities. Clearly septic shock, infection, chronic stress, etc. are playing a role now in blunting the bone marrow response and he has an anemia of chronic disease superimposed on acute blood loss. At this time, it does not appear that additional gastrointestinal investigations will help. He does appear a little dry at the moment and could benefit from some more hydration. He is set up for fungal infection of the oropharynx or esophagus and clotrimazole troches or nystatin swish and swallow is suggested given his age and recent prednisone use. It may be necessary to restart prednisone again. [id number]/[facility] #: [id number] [facility]ITALFavian
[2020-03-04] MEDS: oxyCODONE/Acetamin 5/325 MG* TAB PO PRN (16:13)
--- NOTE | 2020-03-04 18:55 | HP ---
ADMISSION HISTORY AND PHYSICAL: DATE OF ADMISSION: 03/04/20 REASON FOR ADMISSION: Medically complex case after a perforated viscus followed by sigmoid colectomy and ostomy. HISTORY OF PRESENT ILLNESS: Beto Perez is an 89-year-old male. He has a history of diverticulitis. He also has a history of ischemic cardiomyopathy. He presented to the ER on 02/25/20 complaining of abdominal pain. He was taking prednisone 20 mg a day at that time. He was taking the prednisone because he had a recent hospitalization, and during that hospitalization, he had an elevated total CPK. There was some question about whether he had polymyalgia rheumatica or not. The patient was admitted to the hospital after coming to the ER on 02/25/20. He was evaluated by Surgery after a CAT scan of his abdomen and pelvis, showed free air. It was felt that he had a likely colonic perforation and was felt to need to go to the operating room for an exploratory laparotomy. He was taken to the OR on 02/25/20 and underwent a sigmoid resection and end colostomy. After surgery, he was intubated, he went into atrial fibrillation with rapid ventricular response. He was seen by Dr. Thakkar in consultation. He also had runs of nonsustained V- tach. Dr. Thakkar recommended increasing his beta-ranjan and said amiodarone was potential option in the future. Given his recent elevated CPK, she wanted to avoid amio if possible. The patient did have another echo showing an ejection fraction of 40% to 45%. The patient finished a 10-day course of Zosyn. He also was noted to have frequent melena. A GI consult with Dr. Sheikh was ordered. He did have an EGD with Dr. Sheikh in January. The patient was noted to have postop AFib, but was in sinus rhythm at the time of discharge from the hospital. The patient was felt to have physical therapy and occupational therapy needs. The patient is now being admitted for inpatient rehab so that he might return to independent living. PAST MEDICAL HISTORY: Includes: 1. Prostatic hypertrophy. 2. He has history of elevated CPK of unknown etiology. 3. Hypertension. 4. Gastroesophageal reflux disease. 5. Gout. CURRENT MEDICATIONS: Include: 1. Lopressor. 2. Percocet. 3. Protonix. ALLERGIES: Include PROCAINE. FAMILY HISTORY: Noncontributory. SOCIAL HISTORY: The patient is a nonsmoker, nondrinker. He lives with his . It is a 2-story house with 8 steps to enter. REVIEW OF SYSTEMS: The patient reports abdominal pain when he tries to get up. He also reports difficulty with edema in his left arm. PHYSICAL EXAMINATION VITAL SIGNS: The patient's temperature is 98.9, blood pressure is 125/51, pulse 58, respirations 16. HEENT: His extraocular movements are intact. Tongue is midline. NECK: Supple. LUNGS: Sound clear to auscultation bilaterally. HEART: Sounds are regular. S1, S2 are audible. ABDOMEN: Soft and nontender. EXTREMITIES: The patient does have 2+ edema in his left arm. It is unclear if this is from a infiltrated IV. He also has edema in both lower extremities. NEUROLOGIC: He is awake, alert, oriented. He has a thick Serbian accent. Muscle strength appears to be 4+/5 throughout his left arm, feels slightly weaker because of the fluid in his left arm. FUNCTIONAL EXAM: He transfers with min assist. ASSESSMENT: Medically complex case with a perforated viscus. He underwent a sigmoid colectomy with a colostomy. Hid postop course was notable for runs of atrial fibrillation and nonsustained ventricular tachycardia. PLAN: Integrate him into a comprehensive and therapeutic rehab program with the following goals: 1. Physical Therapy is going to work with the patient. They are going to work on functional transfer training, ambulation training with a walker. 2. Occupational Therapy will see the patient, work on his activities of daily living including toileting and toilet transfers. 3. Gentle diuresis for fluid overload. 4. Continue Protonix. 5. For his AFib and nonsustained V tach, we are going to continue him on his Lopressor 25 twice a day. 6. We will consider starting heparin for DVT prophylaxis. 7. We will follow his hemoglobin and hematocrit for his history of melanic stool. 8. printing services coordinator will be closely involved to make sure that any services and equipment the patient requires are in place prior to discharge. 9. Family training as appropriate. 10. Home with appropriate services. ESTIMATED LENGTH OF STAY: One week. [id number]/[facility] #: [id number] [facility]
[2020-03-04] MEDS: Metoprolol Tartrate TAB* 25 MG PO SCH (20:42)
[2020-03-04] MEDS: Docusate CAP* 100 MG PO SCH (20:42)
[2020-03-05] MEDS: Furosemide TAB* 20 MG PO SCH (10:13)
[2020-03-05] MEDS: Pantoprazole TAB * 40 MG TAB PO SCH (10:13)
[2020-03-05] MEDS: Docusate CAP* 100 MG PO SCH ×2 (10:14→20:50)
[2020-03-05] MEDS: oxyCODONE/Acetamin 5/325 MG* TAB PO PRN ×2 (10:18→22:28)
[2020-03-05] MEDS: Metoprolol Tartrate TAB* 25 MG PO SCH ×2 (10:18→20:50)
--- NOTE | 2020-03-05 18:28 | PN ---
Progress Note Date of Service: 03/05/20 Note: BÁRBARA DING was visited. Nursing notes read and reviewed. He had a lot of trouble urinating last night. He just finished a 10 day course of IV Zosyn, so I doubt he has a UTI. He was on Cardura and Proscar prior to admit-will resume. His swelling in his arms is a little better after starting Lasix. Current Medications: Active Medications Generic Name Dose Route Start Last Admin Trade Name Freq PRN Reason Stop Dose Admin Acetaminophen 650 mg 03/04/20 12:24 Tylenol Tab* PO Q6H PRN MILD PAIN or TEMP > 100.4 Docusate Sodium 100 mg 03/04/20 21:00 03/05/20 10:14 Colace Cap* PO 100 mg BID COLBY Administration Doxazosin Mesylate 2 mg 03/05/20 21:00 Cardura Tab* PO BEDTIME COLBY Finasteride 5 mg 03/05/20 21:00 Proscar Tab* PO 2100 COLBY Furosemide 20 mg 03/05/20 09:00 03/05/20 10:13 Lasix Tab* PO 20 mg DAILY COLBY Administration Heparin Sodium (Porcine) 1 ml 03/04/20 18:00 03/05/20 05:37 Heparin Flush Picc/Ml/Cvc(*) FLUSH 1 ml 0600,1800 COLBY Administration Protocol Metoprolol Tartrate 25 mg 03/04/20 21:00 03/05/20 10:18 Lopressor Tab* PO 25 mg BID COLBY Administration Oxycodone/Acetaminophen 1 tab 03/04/20 12:35 03/05/20 10:18 Percocet 5/325 Tab* PO 1 tab Q4H PRN Administration PAIN - MODERATE Pantoprazole Sodium 40 mg 03/05/20 09:00 03/05/20 10:13 Protonix Tab* PO 40 mg DAILY COLBY Administration Senna 2 tab 03/04/20 12:36 Senokot 8.6 Mg Tab* PO BEDTIME PRN CONSTIPATION Vital Signs: Vital Signs Temp Pulse Resp BP Pulse Ox 98.9 F 82 16 142/52 99 03/05/20 14:30 03/05/20 08:00 03/05/20 13:25 03/05/20 05:14 03/05/20 08:00 Exam: GENERAL: A&O. No distress LUNGS: Clear HEART: Regular rhythm ABDOMEN: Soft. Ostomy draining stool EXTREMITIES: 2+ edema in left arm, right arm also swollen. Legs have 1-2+ edema as well NEUROLOGIC: A&O. Sensation intact. Muscle strength 4/5 in left arm due to swelling Assessment/Plan: 1. Perforated Viscus, S/P Sigmoid Colectomy with colostomy: Ostomy has stool. Has some belly pain. Finished 10 day of IV Zosyn. PT/OT 2. Volume Overload: Continue Lasix. Check labs on Saturday, Weights M-W-F 3. BPH: Trouble voiding, will resume Cardura and Proscar. Watch BP 4. Melena: Work up with GI ongoing. Follow Hb/Hct. Protonix 5. A fib/ runs of NSVT: Metoprolol 6. Elevated CPK of unclear etiology: Check with Saturday's labs. May need to restart Prednisone 7. DVT Prophylaxis: TEDs. Unable to do chemical prophylaxis due to melena 8. Advance Directives: Full code 03/05/20 18:35
[2020-03-05 20:29] LABS: Urine Appearance Clear; Urine Bilirubin Negative (Negative); Urine Blood 1+ (Negative); Urine Color Yellow; Urine Glucose Negative (Negative); Urine Ketones Negative (Negative); Urine Nitrite Negative (Negative); Urine Protein Negative (Negative); Urine Specific Gravity 1.009 (1.010-1.030); Urine Urobilinogen Negative (Negative)
[2020-03-05 20:30] LABS: Urine Bacteria 1+ (Absent); Urine Red Blood Cell Trace(0-2/hpf) (Absent); Urine White Blood Cell Absent (Absent)
[2020-03-05] MEDS: Finasteride TAB* 5 MG PO SCH (20:50)
[2020-03-05] MEDS ORDERED: Doxazosin TAB* 2 MG PO SCH (21:00)
[2020-03-06 08:27] LABS: ABS Basophils 0.1 10^3/ul (0-0.2); ABS Lymphocytes 0.8 10^3/ul (1.0-4.8); ABS Monocytes 0.5 10^3/ul (0-0.8); ABS Neutrophils 6.2 10^3/ul (1.5-7.7); Eosinophil % 0.4 %; Hematocrit 26 % (42-52); Hemoglobin 8.5 g/dL (14.0-18.0); Lymphocyte % 10.5 %; Mean Corpuscular HGB Conc 33 g/dL (31-36); Mean Corpuscular Hemoglobin 27 pg (27-31); Mean Corpuscular Volume 82 fL (80-94); Mean Platelet Volume 9.3 fL (7.4-10.4); Nucleated Red Blood Cells % 0.1; Platelet Count 213 10^3/uL (150-450); Red Cell Distribution Width 18 % (10-15); White Blood Count 7.5 10^3/uL (3.5-10.8)
[2020-03-06] MEDS: Pantoprazole TAB * 40 MG TAB PO SCH (09:11)
[2020-03-06] MEDS: Metoprolol Tartrate TAB* 25 MG PO SCH ×2 (09:11→21:00)
[2020-03-06] MEDS: Docusate CAP* 100 MG PO SCH ×2 (09:11→21:00)
[2020-03-06] MEDS: Furosemide TAB* 20 MG PO SCH (09:12)
[2020-03-06] MEDS: oxyCODONE/Acetamin 5/325 MG* TAB PO PRN ×2 (09:13→21:00)
[2020-03-06] MEDS ORDERED: Dextran 70/Hypromellose Tears Eye Drops 15 ml BTL (for Artificials Tears) BOTH EYES PRN (15:43)
--- NOTE | 2020-03-06 17:28 | PN ---
Progress Note Date of Service: 03/06/20 Note: BÁRBARA DING was visited. Nursing notes read and reviewed. Remains with proximal muscle weakness. Will likely resume prednisone Saturday, if all looks well. Hb stable today. Has dry eyes, will order natural tears. U/A negative Current Medications: Active Medications Generic Name Dose Route Start Last Admin Trade Name Freq PRN Reason Stop Dose Admin Acetaminophen 650 mg 03/04/20 12:24 Tylenol Tab* PO Q6H PRN MILD PAIN or TEMP > 100.4 Artificial Tears 1 drop 03/06/20 15:43 Natural Balance Tears Eye Drop BOTH EYES Q2H PRN DRY EYE Docusate Sodium 100 mg 03/04/20 21:00 03/06/20 09:11 Colace Cap* PO 100 mg BID COLBY Administration Doxazosin Mesylate 4 mg 03/06/20 21:00 Cardura Tab* PO BEDTIME COLBY Finasteride 5 mg 03/05/20 21:00 03/05/20 20:50 Proscar Tab* PO 5 mg 2100 COLBY Administration Furosemide 20 mg 03/05/20 09:00 03/06/20 09:12 Lasix Tab* PO 20 mg DAILY COLBY Administration Heparin Sodium (Porcine) 1 ml 03/04/20 18:00 03/06/20 05:45 Heparin Flush Picc/Ml/Cvc(*) FLUSH 1 ml 0600,1800 COLBY Administration Protocol Metoprolol Tartrate 25 mg 03/04/20 21:00 03/06/20 09:11 Lopressor Tab* PO 25 mg BID COLBY Administration Oxycodone/Acetaminophen 1 tab 03/04/20 12:35 03/06/20 09:13 Percocet 5/325 Tab* PO 1 tab Q4H PRN Administration PAIN - MODERATE Pantoprazole Sodium 40 mg 03/05/20 09:00 03/06/20 09:11 Protonix Tab* PO 40 mg DAILY COLBY Administration Senna 2 tab 03/04/20 12:36 Senokot 8.6 Mg Tab* PO BEDTIME PRN CONSTIPATION Vital Signs: Vital Signs Temp Pulse Resp BP Pulse Ox 98.4 F 88 16 159/55 99 03/06/20 05:49 03/06/20 08:00 03/06/20 11:35 03/06/20 05:49 03/06/20 08:00 Lab Results: Laboratory Results - last 24 hr 03/05/20 03/06/20 19:44 08:12 WBC 7.5 RBC 3.10 L Hgb 8.5 L Hct 26 L MCV 82 MCH 27 MCHC 33 RDW 18 H Plt Count 213 MPV 9.3 Neut % (Auto) 82.0 Lymph % (Auto) 10.5 [place] % (Auto) 6.4 Eos % (Auto) 0.4 Baso % (Auto) 0.7 Absolute Neuts (auto) 6.2 Absolute Lymphs (auto) 0.8 L Absolute Monos (auto) 0.5 Absolute Eos (auto) 0.0 Absolute Basos (auto) 0.1 Absolute Nucleated RBC 0.0 Nucleated RBC % 0.1 Urine Color Yellow Urine Appearance Clear Urine pH 6.0 Ur Specific [place] 1.009 L Urine Protein Negative Urine Ketones Negative Urine Blood 1+ A Urine Nitrate Negative Urine Bilirubin Negative Urine Urobilinogen Negative Ur Leukocyte Esterase Negative Urine WBC (Auto) Absent Urine RBC (Auto) Trace(0-2/hpf) Urine Bacteria 1+ A Hyaline Casts Present A Urine Glucose Negative Exam: GENERAL: A&O. No distress LUNGS: Clear HEART: Regular rhythm ABDOMEN: Soft. Ostomy draining stool EXTREMITIES: 2+ edema in left arm, right arm also swollen. Legs have 1-2+ edema as well NEUROLOGIC: A&O. Sensation intact. Muscle strength 4/5 in left arm due to swelling Assessment/Plan: 1. Perforated Viscus, S/P Sigmoid Colectomy with colostomy: Ostomy has stool. Has some belly pain. Finished 10 day of IV Zosyn. PT/OT 2. Volume Overload: Continue Lasix. Check labs on Saturday, Weights M-W-F 3. BPH: Trouble voiding, resumed Cardura and Proscar. Watch BP 4. Melena: Work up with GI ongoing. Follow Hb/Hct. Protonix 5. A fib/ runs of NSVT: Metoprolol 6. Elevated CPK of unclear etiology, proximal arm weakness: Check with Saturday's labs. May need to restart Prednisone 7. DVT Prophylaxis: TEDs. Unable to do chemical prophylaxis due to melena 8. Advance Directives: Full code 03/06/20 17:29
[2020-03-06] MEDS: Finasteride TAB* 5 MG PO SCH (21:00)
[2020-03-06] MEDS: Doxazosin TAB* 2 MG PO SCH (21:00)
[2020-03-07 06:15] LABS: ABS Lymphocytes 0.3 10^3/ul (1.0-4.8); ABS Monocytes 0.3 10^3/ul (0-0.8); ABS Neutrophils 3.9 10^3/ul (1.5-7.7); Eosinophil % 0.6 %; Hematocrit 26 % (42-52); Hemoglobin 7.7 g/dL (14.0-18.0); Lymphocyte % 6.8 %; Mean Corpuscular HGB Conc 30 g/dL (31-36); Mean Corpuscular Hemoglobin 27 pg (27-31); Mean Corpuscular Volume 92 fL (80-94); Mean Platelet Volume 9.4 fL (7.4-10.4); Platelet Count 157 10^3/uL (150-450); Red Blood Count 2.83 10^6 /uL (4.18-5.48); Red Cell Distribution Width 20 % (10-15); White Blood Count 4.5 10^3/uL (3.5-10.8)
[2020-03-07 06:46] LABS: Albumin 1.5 g/dL (3.2-5.2); Calcium 6.5 mg/dL (8.6-10.3); Potassium 3.4 mmol/L (3.5-5.0); Total Bilirubin 0.5 mg/dL (0.2-1.0)
[2020-03-07 06:52] LABS: Albumin/Globulin Ratio 0.8 (1-3); BUN/Creatinine Ratio 17.4 (8-20); EGFR African American 77.4 (>60); Globulin 1.8 g/dL (2-4); Total Protein 3.3 g/dL (6.4-8.9)
[2020-03-07] MEDS: Furosemide TAB* 20 MG PO SCH (09:33)
[2020-03-07] MEDS: Metoprolol Tartrate TAB* 25 MG PO SCH ×2 (09:33→20:52)
[2020-03-07] MEDS: Pantoprazole TAB * 40 MG TAB PO SCH (09:33)
[2020-03-07] MEDS: Docusate CAP* 100 MG PO SCH ×2 (09:34→20:53)
[2020-03-07] MEDS: oxyCODONE/Acetamin 5/325 MG* TAB PO PRN ×3 (09:34→21:03)
[2020-03-07] MEDS ORDERED: Potassium Chlor TAB* 20 MEQ TAB.ER PO ONE (12:27)
--- NOTE | 2020-03-07 12:49 | PMRUTEAM ---
PMRU: Team Meeting Current Status: Physical Therapy: Current Status Current Rolling Status Supervision/Touching Current Supine <-> Sit Status Partial/Moderate Current Sit <-> Stand Status Supervision/Touching Current Bed <-> Chair Status Supervision/Touching Transfer/Bed Mobility Rolling Walker Recommended Devices Current Ambulation Assistance Supervision/Touching Status Ambulation Assistive Device Rolling Walker Ambulation Conditions Two or More Turns Current Ambulation Distance 150 Current Wheelchair Propulsion Not Applicable Ability Status Current Stair Climbing Status Partial/Moderate Stair Climbing Assistive Left Railing,Right Railing Devices Number of Stairs Climbed 5 Current Curb Assistance Status Partial/Moderate Curb Assistive Devices Railings Objective Comments Pt has significant LE and UE edema, nsg and MD informed. Occupational Therapy: Current Status Current Upper Body Dressing Partial/Moderate Status Current Lower Body Dressing Dependent Status Current Footwear Status Dependent Current Bathing Status Substantial/Maximal Current Grooming Status Partial/Moderate Current Toileting Status Dependent Current Toilet Transfer Status Partial/Moderate Current Eating Status Independent Nursing: Current Status Skin Deviations [Buttocks] Other Skin Deviations [Right Lower Previous Access Point Abdomen] Skin Deviations [Lower Midline Incision Abdomen] Skin Deviations [Left Lower Other Abdomen] Skin Deviation Description [ reddened - blue cream applied Buttocks] Skin Deviation Description [ CDI Right Lower Abdomen] Skin Deviation Description [ drsg in place Lower Midline Abdomen] Skin Deviation Description [ colostomy bag collection bag in place Left Lower Abdomen] Social Work: Current Status Discharge Plan return home with home care service and family support Potential for Family Training pt's family are involved and supportive Anticipated Discharge Home Destination Discharge With home care svs and family support Goals: Physical Therapy: Goals Goals to Be Accomplished in ( 5-7 Days) Goal: Rolling Assistance Independent Goal Supine <-> Sit Status Independent Goal Sit <-> Stand Status Independent Goal Bed <-> Chair Status Independent Transfer/Bed Mobility Rolling Walker Recommended Devices Goal: Picking Up Object Independent Goal: Car Transfer Status Setup or Clean-up Assist Goal: Ambulation Assistance Independent Ambulation Assistive Devices Rolling Walker Ambulation Distance (ft) 150 Goal: Wheelchair Propulsion Not Applicable Ability Goal: Stairs Assistance Setup or Clean-up Assist Stairs Recommended Devices Two Rails Number of Stairs 5 Goal: Curb Assistance Independent Goal: Home Exercise Program Independent Assistance Occupational Therapy: Goals Goals to be Completed in (Days 7-10 days ) Goal Upper Body Dressing Independent Routine Goal Lower Body Dressing Independent Routine Goal Footwear Status Independent Goal Bathing Routine (OT) Independent Goal Grooming Routine Independent Goal Toilet Hygiene and Independent Clothing Management Routine Goal Toilet Transfer Routine Independent Goal Functional Transfers for Independent ADL Goal Feeding Routine Independent Goal Light Housekeeping Tasks Partial/Moderate Social Work: Goals Discharge Plan return home with home care service and family support Potential for Family Training pt's family are involved and supportive Anticipated Discharge Home Destination Discharge With home care svs and family support Care Plan: Care Plan ADL's - Improve/Maintain Start: 03/04/20 16:53 Freq: DAILY@ Status: Active Target: 03/11/20 Protocol: Activity Type Activity Date Activity User E-Sign Co-Sign Detail Recorded Client Recorded Date Recorded By Document 03/05/20 12:25 [id number] 03/05/20 12:25 [id number] 03/05/20 12:25 PMRU Outcome: ADL's/ADL Transfers Orders/Interventions Occupational Therapy Evaluation & Treatment Device Yes Address Deficits Secondary To: s/p ex lap with Seaman's procedure Patient to receive OT 5x/wk for 60-120 Therex min/day Self Care Management Group Therapy UE/LE ADL's with Assist Yes: independent ADL Transfers with Assist Yes: independent Toileting: Transfers,Clothing Management Yes: ,Hygeine w/Assist independent Light Kitchen/Laundry w/Assist Yes: modA Other Outcome/Goals Pt tolerated treatment fair. Preoccupied with c/o pain during urination, c/o abdominal pain with attempted reclining in chair, as well as c/o Left rib pain, RN aware of all complaints. Progression Toward Outcome/Goals Progressing Cardiovascular- Improve/Maintain Start: 03/04/20 23:55 Freq: DAILY@ Status: Active Target: 03/11/20 Protocol: Activity Type Activity Date Activity User E-Sign Co-Sign Detail Recorded Client Recorded Date Recorded By Document 03/06/20 22:24 [id number] 03/06/20 22:24 [id number] 03/06/20 22:24 PMRU Outcome: Cardiovascular Vital Signs q Shift for 48hrs Then BID Yes Daily Weight Ordered Yes: M/W/F Current Cardiovascular Outcome/Goal Maintain/ Achieve Baseline HR, BP , Perfusion Maintain/ Improve Perfusion Maintain/ Achieve Hemodynamic Stability Other Cardiovascular Outcome/Goal h/o afib Progression Toward Outcome/Goal Progressing Discharge Planning - Improve/Maintain Start: 03/04/20 23:55 Freq: DAILY@0700,1900 Status: Active Target: 03/11/20 Protocol: Activity Type Activity Date Activity User E-Sign Co-Sign Detail Recorded Client Recorded Date Recorded By Document 03/06/20 22:24 [id number] 03/06/20 22:24 [id number] 03/06/20 22:24 PMRU Outcome: Discharge Planning Update Patient Family No Current Discharge Planning Outcome/Goals Demonstrates Understanding of Discharge Plan Progression Toward Outcome/Goals Progressing Education-Improve/Maintain Start: 03/04/20 23:55 Freq: DAILY@07,1899 Status: Active Target: 03/11/20 Protocol: Activity Type Activity Date Activity User E-Sign Co-Sign Detail Recorded Client Recorded Date Recorded By Document 03/06/20 22:24 [id number] 03/06/20 22:24 [id number] 03/06/20 22:24 PMRU Outcome: Education Current Education Outcome/Goals Demonstrate/ Verbalize Understanding of Written Discharge Instructions Demonstrates Skills Encourage Questions Progression Toward Outcome/Goals Progressing /GI-Improve/Maintain Start: 03/04/20 23:55 Freq: DAILY@699,190 Status: Active Target: 03/11/20 Protocol: Activity Type Activity Date Activity User E-Sign Co-Sign Detail Recorded Client Recorded Date Recorded By Document 03/06/20 22:24 [id number] 03/06/20 22:24 [id number] 03/06/20 22:24 PMRU Outcome: Genitourinary/ Gastrointestinal Current Gastrointestinal Outcome/Goals Maintain/ Achieve Bowel Regularity in Accordance with Pt's Baseline Remain Free of Emesis Prevent Constipation Progression Toward Outcome/Goals Progressing Lack of Progression Comment Colostomy Current Genitourinary Outcome/Goals Maintain/ Achieve Urinary Continence Maintain/ Achieve Adequate Urinary Output Remain Free of Hospital- Acquired UTI Progression Toward Outcome/Goals Progressing Mobility- Improve/Maintain Start: 03/04/20 16:49 Freq: DAILY@0700,1900 Status: Active Target: 03/05/20 Protocol: Activity Type Activity Date Activity User E-Sign Co-Sign Detail Recorded Client Recorded Date Recorded By Document 03/04/20 16:49 [id number] 03/04/20 16:50 [id number] 03/04/20 16:49 PMRU Outcome: Mobility Physical Therapy Evaluation and Yes Treatment Activity OOB with Assistance Yes WBAT Yes NWB No TTWB No Device Yes Assistance Yes Patient to be seen 5x/wk for 60-120 min/ Therex day for: Mobility Training Gait Training Balance Other Other Therapy Comment Discharge training/ discharge planning Current Mobility Outcome/Goals Maintain/ Achieve Baseline Mobility Status Improve Mobility Status Demonstrates Proper Use of Assistive Devices Free from Complications of Immobility Progression Toward Outcome/Goals Goal Initiation Bed Mobility Yes: Independent Transfers Yes: Independent with LRD Gait x ft Yes: 150' Independent with LRD W/C Mobility x ft No Up/Down Stairs Yes: 12 with 1- 2 rails, supervision With HEP Yes: Independent Pain/Comfort- Improve/Maintain Start: 03/04/20 23:55 Freq: DAILY@0700,1900 Status: Active Target: 03/11/20 Protocol: Activity Type Activity Date Activity User E-Sign Co-Sign Detail Recorded Client Recorded Date Recorded By Document 03/06/20 22:24 [id number] 03/06/20 22:24 [id number] 03/06/20 22:24 PMRU Outcome: Pain/Comfort Current Pain/Comfort Outcome/Goals Demonstrates Knowledge and Use of Available Comfort Measures Achieves Acceptable Comfort/Pain Level as Determined by Patient/Condit Maintain Comfort Level Allowing Patient to Fully Participate in Rehab Progression Toward Outcome/Goals Progressing Rec Therapy- Improve/Maintain Start: 03/04/20 16:09 Freq: DAILY@0700,1900 Status: Active Target: 03/08/20 Protocol: Activity Type Activity Date Activity User E-Sign Co-Sign Detail Recorded Client Recorded Date Recorded By Document 03/04/20 16:10 [id number] [email or web address] 03/04/20 16:10 [id number] 03/04/20 16:10 PMRU Outcome: Recreation Therapy Current Rec Ther Outcome/Goals Complete Rec Therapy Assessment Meet with Patient Regularly for Support Encourage Leisure Involvement Progression Toward Outcome/Goals Goal Initiation Safety- Improve/Maintain Start: 03/04/20 10:32 Freq: DAILY@0700,1900 Status: Active Target: 03/11/20 Protocol: Activity Type Activity Date Activity User E-Sign Co-Sign Detail Recorded Client Recorded Date Recorded By Document 03/06/20 22:24 [id number] 03/06/20 22:24 [id number] 03/06/20 22:24 PMRU Outcome: Safety Current Safety Outcome/Goals Remain Free of Injury or Harm Cooperates with Safety Measures for Least Restrictive Environment Prevent Falls/ Injury Progression Toward Outcome/Goals Progressing Skin- Improve/Maintain Start: 03/04/20 23:55 Freq: DAILY@0700,1900 Status: Active Target: 03/11/20 Protocol: Activity Type Activity Date Activity User E-Sign Co-Sign Detail Recorded Client Recorded Date Recorded By Document 03/06/20 22:24 [id number] 03/06/20 22:24 [id number] 03/06/20 22:24 PMRU Outcome: Skin Skin Risk Level Moderate Risk Skin Orders Dressing Change Turn/Position q2hr While in Bed Skin Orders Comment New colostomy Current Skin Outcome/Goals Maintain/ Improve Skin Integrity Free from Pressure Injury Progression Toward Outcome/Goals Progressing - Interdisciplinary Staff Present Musical Therapist/Social Work Staff Present: Abbie Reyes LMSW Nursing Staff Present: Candie Jacob RN OT Staff Present: Alyssa Emerson PT Staff Present: Marcia Skinner Medicine Note: Length of Stay: 4 days Anticipated Discharge Destination: Home Tentative Discharge Date: March 11, 2020 Discharged to: Home
--- NOTE | 2020-03-07 13:26 | PN ---
Progress Note - Progress Note Date of Service: 03/07/20 Note: S: Reports no abdominal pain, complains of left rib pain. Tolerating diet well. Denies nausea, emesis, fever, chills, lightheadedness, SOB. O: Temp Pulse Resp BP Pulse Ox 98 F 57 20 120/48 95 03/07/20 04:28 03/07/20 04:28 03/07/20 09:34 03/07/20 05:56 03/07/20 04:28 Intake and Output Last 24 Hours 03/05/20 03/06/20 03/07/20 03/08/20 06:59 06:59 06:59 06:59 Intake Total 450 170 230 240 Output Total 1105 875 925 Balance -655 -705 -695 240 Weight 192 lb 9.533 oz 190 lb 14.4 oz 190 lb 14.4 oz Intake: Oral 450 170 230 240 Output: Urine 1105 625 875 Colostomy 250 50 Other: Estimated Void Small Small # Bowel Movements 1 Estimated Stool Amount Small Small # Voids 1 1 1 Laboratory Last Values WBC 4.5 10^3/uL (3.5-10.8) 03/07/20 05:48 RBC 2.83 10^6 /uL (4.18-5.48) L 03/07/20 05:48 Hgb 7.7 g/dL (14.0-18.0) L 03/07/20 05:48 Hct 26 % (42-52) L 03/07/20 05:48 MCV 92 fL (80-94) 03/07/20 05:48 MCH 27 pg (27-31) 03/07/20 05:48 MCHC 30 g/dL (31-36) L 03/07/20 05:48 RDW 20 % (10-15) H 03/07/20 05:48 Plt Count 157 10^3/uL (150-450) 03/07/20 05:48 MPV 9.4 fL (7.4-10.4) 03/07/20 05:48 Neut % (Auto) 86.4 % 03/07/20 05:48 Lymph % (Auto) 6.8 % 03/07/20 05:48 [place] % (Auto) 6.0 % 03/07/20 05:48 Eos % (Auto) 0.6 % 03/07/20 05:48 Baso % (Auto) 0.2 % 03/07/20 05:48 Absolute Neuts (auto) 3.9 10^3/ul (1.5-7.7) 03/07/20 05:48 Absolute Lymphs (auto) 0.3 10^3/ul (1.0-4.8) L 03/07/20 05:48 Absolute Monos (auto) 0.3 10^3/ul (0-0.8) 03/07/20 05:48 Absolute Eos (auto) 0.0 10^3/ul (0-0.6) 03/07/20 05:48 Absolute Basos (auto) 0.0 10^3/ul (0-0.2) 03/07/20 05:48 Absolute Nucleated RBC 0.0 10^3/ul 03/07/20 05:48 Nucleated RBC % 0.0 03/07/20 05:48 Sodium 143 mmol/L (135-145) 03/07/20 05:48 Potassium 3.4 mmol/L (3.5-5.0) L 03/07/20 05:48 Chloride 116 mmol/L (101-111) H 03/07/20 05:48 Carbon Dioxide 19 mmol/L (22-32) L 03/07/20 05:48 Anion Gap 8 mmol/L (2-11) 03/07/20 05:48 BUN 19 mg/dL (6-24) 03/07/20 05:48 Creatinine 1.09 mg/dL (0.67-1.17) 03/07/20 05:48 Est GFR ( Amer) 77.4 (>60) 03/07/20 05:48 Est GFR (Non-Af Amer) 64.0 (>60) 03/07/20 05:48 BUN/Creatinine Ratio 17.4 (8-20) 03/07/20 05:48 Glucose 91 mg/dL (70-100) 03/07/20 05:48 Calcium 6.5 mg/dL (8.6-10.3) L 03/07/20 05:48 Total Bilirubin 0.50 mg/dL (0.2-1.0) 03/07/20 05:48 AST 45 U/L (13-39) H 03/07/20 05:48 ALT 18 U/L (7-52) 03/07/20 05:48 Alkaline Phosphatase 70 U/L (34-104) 03/07/20 05:48 Total Creatine Kinase 241 U/L (10-223) H 03/07/20 05:48 Total Protein 3.3 g/dL (6.4-8.9) L 03/07/20 05:48 Albumin 1.5 g/dL (3.2-5.2) L 03/07/20 05:48 Globulin 1.8 g/dL (2-4) L 03/07/20 05:48 Albumin/Globulin Ratio 0.8 (1-3) L 03/07/20 05:48 Urine Color Yellow 03/05/20 19:44 Urine Appearance Clear 03/05/20 19:44 Urine pH 6.0 (5-9) 03/05/20 19:44 Ur Specific [place] 1.009 (1.010-1.030) L 03/05/20 19:44 Urine Protein Negative (Negative) 03/05/20 19:44 Urine Ketones Negative (Negative) 03/05/20 19:44 Urine Blood 1+ (Negative) A 03/05/20 19:44 Urine Nitrate Negative (Negative) 03/05/20 19:44 Urine Bilirubin Negative (Negative) 03/05/20 19:44 Urine Urobilinogen Negative (Negative) 03/05/20 19:44 Ur Leukocyte Esterase Negative (Negative) 03/05/20 19:44 Urine WBC (Auto) Absent (Absent) 03/05/20 19:44 Urine RBC (Auto) Trace(0-2/hpf) (Absent) 03/05/20 19:44 Urine Bacteria 1+ (Absent) A 03/05/20 19:44 Hyaline Casts Present (Absent) A 03/05/20 19:44 Urine Glucose Negative (Negative) 03/05/20 19:44 PEX General: Alert, in NAD. Heart: RRR. Lungs: CTAB. ABD: BS present. Soft, nondistended. Slightly tender over incisions, which are C /D/I. Midline incision with petty. Ostomy continues with melenotic output and gas. Extremities: Calves soft and nontender. Distal pulses intact bilaterally. Assessment and plan: 89 yo M s/p titus procedure for perforated sigmoid colon , continue rehab, soft diet, H&H ordered for to re-evaluate. Petty can likely come out later this week.
[2020-03-07] MEDS: Dextran 70/Hypromellose Tears Eye Drops 15 ml BTL (for Artificials Tears) BOTH EYES SCH ×2 (16:02→20:51)
--- NOTE | 2020-03-07 17:49 | PN ---
Progress Note Date of Service: 03/07/20 Note: BÁRBARA DING was visited. Therapy notes read and reviewed. Abraham was discussed in interdisciplinary plan of care rounds. Doing ok, he notes left sided rib pain. His hands remain swollen. His CPK is coming down-will hold on steroids for now. Still with Melanotic stool. Hb drifiting down. Will check on Sat Current Medications: Active Medications Generic Name Dose Route Start Last Admin Trade Name Freq PRN Reason Stop Dose Admin Acetaminophen 650 mg 03/04/20 12:24 Tylenol Tab* PO Q6H PRN MILD PAIN or TEMP > 100.4 Artificial Tears 1 drop 03/07/20 14:00 03/07/20 16:02 Natural Balance Tears Eye Drop BOTH EYES 1 drop TID COLBY Administration Docusate Sodium 100 mg 03/04/20 21:00 03/07/20 09:34 Colace Cap* PO 100 mg BID COLBY Administration Doxazosin Mesylate 4 mg 03/06/20 21:00 03/06/20 21:00 Cardura Tab* PO 4 mg BEDTIME COLBY Administration Finasteride 5 mg 03/05/20 21:00 03/06/20 21:00 Proscar Tab* PO 5 mg 2100 COLBY Administration Furosemide 20 mg 03/05/20 09:00 03/07/20 09:33 Lasix Tab* PO 20 mg DAILY COLBY Administration Heparin Sodium (Porcine) 1 ml 03/04/20 18:00 03/07/20 17:31 Heparin Flush Picc/Ml/Cvc(*) FLUSH 1 ml 0600,1800 COLBY Administration Protocol Metoprolol Tartrate 25 mg 03/04/20 21:00 03/07/20 09:33 Lopressor Tab* PO 25 mg BID COLBY Administration Oxycodone/Acetaminophen 1 tab 03/04/20 12:35 03/07/20 14:00 Percocet 5/325 Tab* PO 1 tab Q4H PRN Administration PAIN - MODERATE Pantoprazole Sodium 40 mg 03/05/20 09:00 03/07/20 09:33 Protonix Tab* PO 40 mg DAILY COLBY Administration Potassium Chloride 20 meq 03/08/20 09:00 Klor Con Er Tab* PO DAILY COLBY Senna 2 tab 03/04/20 12:36 Senokot 8.6 Mg Tab* PO BEDTIME PRN CONSTIPATION Vital Signs: Vital Signs Temp Pulse Resp BP Pulse Ox 98 F 57 18 120/48 95 03/07/20 04:28 03/07/20 04:28 03/07/20 14:01 03/07/20 05:56 03/07/20 04:28 Lab Results: Laboratory Results - last 24 hr 03/07/20 03/07/20 05:48 05:48 WBC 4.5 RBC 2.83 L Hgb 7.7 L Hct 26 L MCV 92 MCH 27 MCHC 30 L RDW 20 H Plt Count 157 MPV 9.4 Neut % (Auto) 86.4 Lymph % (Auto) 6.8 [place] % (Auto) 6.0 Eos % (Auto) 0.6 Baso % (Auto) 0.2 Absolute Neuts (auto) 3.9 Absolute Lymphs (auto) 0.3 L Absolute Monos (auto) 0.3 Absolute Eos (auto) 0.0 Absolute Basos (auto) 0.0 Absolute Nucleated RBC 0.0 Nucleated RBC % 0.0 Sodium 143 Potassium 3.4 L Chloride 116 H Carbon Dioxide 19 L Anion Gap 8 BUN 19 Creatinine 1.09 Est GFR ( Amer) 77.4 Est GFR (Non-Af Amer) 64.0 BUN/Creatinine Ratio 17.4 Glucose 91 Calcium 6.5 L Total Bilirubin 0.50 AST 45 H ALT 18 Alkaline Phosphatase 70 Total Creatine Kinase 241 H Total Protein 3.3 L Albumin 1.5 L Globulin 1.8 L Albumin/Globulin Ratio 0.8 L Exam: GENERAL: A&O. No distress LUNGS: Clear HEART: Regular rhythm ABDOMEN: Soft. Ostomy draining stool EXTREMITIES: 2+ edema in left arm, right arm also swollen. Legs have 1-2+ edema as well NEUROLOGIC: A&O. Sensation intact. Muscle strength 4/5 in both arms possibly due to swelling Assessment/Plan: 1. Perforated Viscus, S/P Sigmoid Colectomy with colostomy: Ostomy has stool, appears melanotic. Has some belly pain. Finished 10 day of IV Zosyn. PT/OT 2. Volume Overload: Continue Lasix. Check labs on Saturday, Weights M-W-F 3. BPH: Trouble voiding, resumed Cardura and Proscar. Watch BP 4. Melena: Work up with GI ongoing. Follow Hb/Hct. Protonix 5. A fib/ runs of NSVT: Metoprolol 6. Elevated CPK of unclear etiology, proximal arm weakness: CPK better today. 7. DVT Prophylaxis: TEDs. Unable to do chemical prophylaxis due to melena 8. Advance Directives: Full code 03/07/20 17:49
[2020-03-07] MEDS: Doxazosin TAB* 2 MG PO SCH (20:52)
[2020-03-07] MEDS: Finasteride TAB* 5 MG PO SCH (20:52)
[2020-03-08] MEDS: oxyCODONE/Acetamin 5/325 MG* TAB PO PRN ×3 (02:29→20:36)
[2020-03-08] MEDS: Dextran 70/Hypromellose Tears Eye Drops 15 ml BTL (for Artificials Tears) BOTH EYES SCH ×3 (08:24→20:32)
[2020-03-08] MEDS: Potassium Chlor TAB* 20 MEQ TAB.ER PO SCH (08:24)
[2020-03-08] MEDS: Pantoprazole TAB * 40 MG TAB PO SCH (08:24)
[2020-03-08] MEDS: Furosemide TAB* 20 MG PO SCH (08:25)
[2020-03-08] MEDS: Metoprolol Tartrate TAB* 25 MG PO SCH ×2 (08:25→20:35)
[2020-03-08] MEDS: Docusate CAP* 100 MG PO SCH ×2 (08:28→20:34)
--- NOTE | 2020-03-08 12:58 | PMRUTEAM ---
PMRU: Team Meeting Current Status: Physical Therapy: Current Status Current Rolling Status Supervision/Touching Current Supine <-> Sit Status Partial/Moderate Current Sit <-> Stand Status Supervision/Touching Current Bed <-> Chair Status Supervision/Touching Transfer/Bed Mobility Rolling Walker Recommended Devices Current Ambulation Assistance Supervision/Touching Status Ambulation Assistive Device Rolling Walker Ambulation Conditions Two or More Turns Current Ambulation Distance 150 Current Wheelchair Propulsion Not Applicable Ability Status Current Stair Climbing Status Partial/Moderate Stair Climbing Assistive Left Railing,Right Railing Devices Number of Stairs Climbed 5 Current Curb Assistance Status Partial/Moderate Curb Assistive Devices Railings Objective Comments Pt has significant LE and UE edema, nsg and MD informed. Occupational Therapy: Current Status Current Upper Body Dressing Partial/Moderate Status Current Lower Body Dressing Partial/Moderate Status Current Footwear Status Partial/Moderate Current Bathing Status Partial/Moderate Current Grooming Status Partial/Moderate Current Toileting Status Supervision/Touching Current Toilet Transfer Status Partial/Moderate Current Eating Status Independent Nursing: Current Status Skin Deviations [Buttocks] Other Skin Deviations [Right Lower Previous Access Point Abdomen] Skin Deviations [Lower Midline Incision Abdomen] Skin Deviations [Left Lower Other Abdomen] Skin Deviation Description [ redness, patient stated he was fine. Buttocks] Skin Deviation Description [ CDI Right Lower Abdomen] Skin Deviation Description [ intact with clips. scant amount serosang drainage. Lower Midline Abdomen] washed with soap and water. new foled 4x4 applied Skin Deviation Description [ colostomy-intact Left Lower Abdomen] Bladder Current Status using urinal Bowel Current Status colostomy. patient declined Nutrition Current Status appetite fair Medication Current Status needs reinforcement Rec Therapy: Current Status Summary of Assessment and Recreation Therapy assessment is complete and pt Clinical Impression is aware of services. Pt is open to continued leisure visits, but is declining independent leisure and formal activities. Treatment Goals Pt will engaged in leisure activities while on the unit, as tolerated Treatment Plan Provide Recreation Therapy services and encourage involvement Social Work: Current Status Discharge Plan return home with home care service and family support Potential for Family Training pt's family are involved and supportive Anticipated Discharge Home Destination Discharge With home care svs and family support Nutrition: Current Status Monitoring full nutrition assessment planned 03/10; ostomy diet education planned at that time as well. s/p Jose L's procedure (and tested NEGATIVE for COVID). PO intake w/soft solids has been suboptimal, only ~1/3 of meals being consumed. Cont to encourage po intake; will evaluate for supplements. Goals: Physical Therapy: Goals Goals to Be Accomplished in ( 5-7 Days) Goal: Rolling Assistance Independent Goal Supine <-> Sit Status Independent Goal Sit <-> Stand Status Independent Goal Bed <-> Chair Status Independent Transfer/Bed Mobility Rolling Walker Recommended Devices Goal: Picking Up Object Independent Goal: Car Transfer Status Setup or Clean-up Assist Goal: Ambulation Assistance Independent Ambulation Assistive Devices Rolling Walker Ambulation Distance (ft) 150 Goal: Wheelchair Propulsion Not Applicable Ability Goal: Stairs Assistance Setup or Clean-up Assist Stairs Recommended Devices Two Rails Number of Stairs 5 Goal: Curb Assistance Independent Goal: Home Exercise Program Independent Assistance Occupational Therapy: Goals Goals to be Completed in (Days 7-10 days ) Goal Upper Body Dressing Independent Routine Goal Lower Body Dressing Independent Routine Goal Footwear Status Independent Goal Bathing Routine (OT) Independent Goal Grooming Routine Independent Goal Toilet Hygiene and Independent Clothing Management Routine Goal Toilet Transfer Routine Independent Goal Functional Transfers for Independent ADL Goal Feeding Routine Independent Goal Light Housekeeping Tasks Partial/Moderate Nutrition: Goals Intervention Goals 1. pt will tolerate post-op diet without adverse GI effects 2. adequate po intake to maintain lean body mass and hydration without add'l wt gain 3. glycemic control within inpatient parameters and without s/sx hypoglycemia 4. achieve and maintain serum electrolytes levels WNL 5. achieve and maintain regulated bowel pattern without c/o constipation (or diarrhea) Social Work: Goals Discharge Plan return home with home care service and family support Potential for Family Training pt's family are involved and supportive Anticipated Discharge Home Destination Discharge With home care svs and family support Nursing: Goals Bladder Goal independent Bowel Goal supervision Nutrition Goal 100% of all meals consumed Medication Goal supervision Care Plan: Care Plan ADL's - Improve/Maintain Start: 03/04/20 16:53 Freq: DAILY@[id number],1900 Status: Active Target: 03/11/20 Protocol: Activity Type Activity Date Activity User E-Sign Co-Sign Detail Recorded Client Recorded Date Recorded By Document 03/07/20 16:02 [id number] 03/07/20 16:02 [id number] 03/07/20 16:02 PMRU Outcome: ADL's/ADL Transfers Orders/Interventions Occupational Therapy Evaluation & Treatment Device Yes Address Deficits Secondary To: s/p ex lap with Seaman's procedure Patient to receive OT 5x/wk for 60-120 Therex min/day Self Care Management Group Therapy UE/LE ADL's with Assist Yes: independent ADL Transfers with Assist Yes: independent Toileting: Transfers,Clothing Management Yes: ,Hygeine w/Assist independent Light Kitchen/Laundry w/Assist Yes: modA Other Outcome/Goals Pt tolerates OT tx session well this date. Pt fatigues quickly throughout session. Encouragement provided to participate in entire tx session. Progression Toward Outcome/Goals Progressing Cardiovascular- Improve/Maintain Start: 03/04/20 23:55 Freq: [id number] Status: Active Target: 03/11/20 Protocol: Activity Type Activity Date Activity User E-Sign Co-Sign Detail Recorded Client Recorded Date Recorded By Document 03/08/20 08:00 [id number] 03/08/20 10:38 [id number] 03/08/20 08:00 PMRU Outcome: Cardiovascular Vital Signs q Shift for 48hrs Then BID Yes Daily Weight Ordered No: M,W,F Current Cardiovascular Outcome/Goal Maintain/ Achieve Baseline HR, BP , Perfusion Improve HR Within Prescribed Parameters Maintain/ Improve Perfusion Maintain/ Achieve Hemodynamic Stability Free of Abnormal Cardiac Symptoms Progression Toward Outcome/Goal Progressing Discharge Planning - Improve/Maintain Start: 03/04/20 23:55 Freq: [id number] Status: Active Target: 03/11/20 Protocol: Activity Type Activity Date Activity User E-Sign Co-Sign Detail Recorded Client Recorded Date Recorded By Document 03/08/20 08:00 [id number] 03/08/20 10:38 [id number] 03/08/20 08:00 PMRU Outcome: Discharge Planning Update Patient Family No: family not present at this time Current Discharge Planning Outcome/Goals Demonstrates Understanding of Discharge Plan Homecare Referral - See Comment Progression Toward Outcome/Goals Progressing Education-Improve/Maintain Start: 03/04/20 23:55 Freq: DAILY@ Status: Active Target: 03/11/20 Protocol: Activity Type Activity Date Activity User E-Sign Co-Sign Detail Recorded Client Recorded Date Recorded By Document 03/08/20 08:00 [id number] 03/08/20 10:38 [id number] 03/08/20 08:00 PMRU Outcome: Education Current Education Outcome/Goals Demonstrate/ Verbalize Understanding of Written Discharge Instructions Demonstrates Skills Encourage Questions Progression Toward Outcome/Goals Progressing /GI-Improve/Maintain Start: 03/04/20 23:55 Freq: DAILY@[id number] Status: Active Target: 03/11/20 Protocol: Activity Type Activity Date Activity User E-Sign Co-Sign Detail Recorded Client Recorded Date Recorded By Document 03/08/20 08:00 [id number] 03/08/20 10:38 [id number] 03/08/20 08:00 PMRU Outcome: Genitourinary/ Gastrointestinal Current Gastrointestinal Outcome/Goals Maintain/ Achieve Bowel Regularity in Accordance with Pt's Baseline Remain Free of Emesis Prevent Constipation Bowel Regularity at Home Other GI Outcome/Goals COLOSTOMY Progression Toward Outcome/Goals Progressing Current Genitourinary Outcome/Goals Maintain/ Achieve Urinary Continence Maintain/ Achieve Adequate Urinary Output Remain Free of Hospital- Acquired UTI Other Genitourinary Outcome/Goals USES URINAL Progression Toward Outcome/Goals Progressing Mobility- Improve/Maintain Start: 03/04/20 16:49 Freq: DAILY@ Status: Active Target: 03/05/20 Protocol: Activity Type Activity Date Activity User E-Sign Co-Sign Detail Recorded Client Recorded Date Recorded By Document 03/04/20 16:49 [id number] 03/04/20 16:50 [id number] 03/04/20 16:49 PMRU Outcome: Mobility Physical Therapy Evaluation and Yes Treatment Activity OOB with Assistance Yes WBAT Yes NWB No TTWB No Device Yes Assistance Yes Patient to be seen 5x/wk for 60-120 min/ Therex day for: Mobility Training Gait Training Balance Other Other Therapy Comment Discharge training/ discharge planning Current Mobility Outcome/Goals Maintain/ Achieve Baseline Mobility Status Improve Mobility Status Demonstrates Proper Use of Assistive Devices Free from Complications of Immobility Progression Toward Outcome/Goals Goal Initiation Bed Mobility Yes: Independent Transfers Yes: Independent with LRD Gait x ft Yes: 150' Independent with LRD W/C Mobility x ft No Up/Down Stairs Yes: 12 with 1- 2 rails, supervision With HEP Yes: Independent Pain/Comfort- Improve/Maintain Start: 03/04/20 23:55 Freq: DAILY@[id number] Status: Active Target: 03/11/20 Protocol: Activity Type Activity Date Activity User E-Sign Co-Sign Detail Recorded Client Recorded Date Recorded By Document 03/08/20 08:00 [id number] 03/08/20 10:38 [id number] 03/08/20 08:00 PMRU Outcome: Pain/Comfort Current Pain/Comfort Outcome/Goals Demonstrates Knowledge and Use of Available Comfort Measures Achieves Acceptable Comfort/Pain Level as Determined by Patient/Condit Maintain Comfort Level Allowing Patient to Fully Participate in Rehab Other Pain/Comfort Outcome/Goals PERCOCET FOR PAIN Progression Toward Outcome/Goals Progressing Rec Therapy- Improve/Maintain Start: 03/04/20 16:09 Freq: DAILY@00,1900 Status: Active Target: 03/08/20 Protocol: Activity Type Activity Date Activity User E-Sign Co-Sign Detail Recorded Client Recorded Date Recorded By Document 03/04/20 16:10 [id number] [email or web address] 03/04/20 16:10 [id number] 03/04/20 16:10 PMRU Outcome: Recreation Therapy Current Rec Ther Outcome/Goals Complete Rec Therapy Assessment Meet with Patient Regularly for Support Encourage Leisure Involvement Progression Toward Outcome/Goals Goal Initiation Safety- Improve/Maintain Start: 03/04/20 10:32 Freq: DAILY@699,0 Status: Active Target: 03/11/20 Protocol: Activity Type Activity Date Activity User E-Sign Co-Sign Detail Recorded Client Recorded Date Recorded By Document 03/08/20 08:00 [id number] 03/08/20 10:38 [id number] 03/08/20 08:00 PMRU Outcome: Safety Current Safety Outcome/Goals Remain Free of Injury or Harm Cooperates with Safety Measures for Least Restrictive Environment Prevent Falls/ Injury Other Safety Outcome/Goals PA/BA Progression Toward Outcome/Goals Progressing Skin- Improve/Maintain Start: 03/04/20 23:55 Freq: DAILY@699,1900 Status: Active Target: 03/11/20 Protocol: Activity Type Activity Date Activity User E-Sign Co-Sign Detail Recorded Client Recorded Date Recorded By Document 03/08/20 08:00 [id number] 03/08/20 10:38 [id number] 03/08/20 08:00 PMRU Outcome: Skin Skin Risk Level Mild Risk Skin Orders Dressing Change Teach Patient Skin Orders Comment LOWER ABDOMINAL DRSG-CHANGE DAILY Current Skin Outcome/Goals Maintain/ Improve Skin Integrity Free from Pressure Injury Surgical Incisions Healing Progression Toward Outcome/Goals Progressing - Interdisciplinary Staff Present Charge Entry Specialist/Social Work Staff Present: Abbie Reyes LMSW Nursing Staff Present: Uyen Jacob RN OT Staff Present: Alyssa Emerson PT Staff Present: Jh Saenz SYSTEMS MANAGER Staff Present: Magno Dempsey Medicine Note: Length of Stay: 7 days Anticipated Discharge Destination: Home Tentative Discharge Date: 03/15/20 Discharged to: Home
--- NOTE | 2020-03-08 18:05 | PN ---
Progress Note Date of Service: 03/08/20 Note: BÁRBARA DING was visited. Therapy notes read and reviewed. He was discussed in interdisciplinary team rounds. He continues to have edema in his extremities, worse in left arm than right. On diuresis. Able to walk 150 feet but then got dizzy and had blurry vision-orthostatic. Unclear if from Cardura or low Hb. Will check Hb in am, lower Cardura to 2 mg Current Medications: Active Medications Generic Name Dose Route Start Last Admin Trade Name Freq PRN Reason Stop Dose Admin Acetaminophen 650 mg 03/04/20 12:24 Tylenol Tab* PO Q6H PRN MILD PAIN or TEMP > 100.4 Artificial Tears 1 drop 03/07/20 14:00 03/08/20 14:16 Natural Balance Tears Eye Drop BOTH EYES 1 drop TID COLBY Administration Docusate Sodium 100 mg 03/04/20 21:00 03/08/20 08:28 Colace Cap* PO Not Given BID COLBY Doxazosin Mesylate 4 mg 03/06/20 21:00 03/07/20 20:52 Cardura Tab* PO 4 mg BEDTIME COLBY Administration Finasteride 5 mg 03/05/20 21:00 03/07/20 20:52 Proscar Tab* PO 5 mg 2100 COLBY Administration Furosemide 20 mg 03/05/20 09:00 03/08/20 08:25 Lasix Tab* PO 20 mg DAILY COLBY Administration Heparin Sodium (Porcine) 1 ml 03/04/20 18:00 03/08/20 17:36 Heparin Flush Picc/Ml/Cvc(*) FLUSH 1 ml 0600,1800 COLBY Administration Protocol Metoprolol Tartrate 25 mg 03/04/20 21:00 03/08/20 08:25 Lopressor Tab* PO 25 mg BID COLBY Administration Oxycodone/Acetaminophen 1 tab 03/04/20 12:35 03/08/20 08:25 Percocet 5/325 Tab* PO 1 tab Q4H PRN Administration PAIN - MODERATE Pantoprazole Sodium 40 mg 03/05/20 09:00 03/08/20 08:24 Protonix Tab* PO 40 mg DAILY COLBY Administration Potassium Chloride 20 meq 03/08/20 09:00 03/08/20 08:24 Klor Con Er Tab* PO 20 meq DAILY COLBY Administration Senna 2 tab 03/04/20 12:36 Senokot 8.6 Mg Tab* PO BEDTIME PRN CONSTIPATION Vital Signs: Vital Signs Temp Pulse Resp BP Pulse Ox 98.3 F 72 20 128/52 100 03/08/20 06:30 03/08/20 06:30 03/08/20 17:17 03/08/20 06:30 03/08/20 06:30 Exam: GENERAL: A&O. No distress LUNGS: Clear HEART: Regular rhythm ABDOMEN: Soft. Ostomy draining stool EXTREMITIES: 2+ edema in left arm, right arm also swollen. Legs have 1-2+ edema as well NEUROLOGIC: A&O. Sensation intact. Muscle strength 4/5 in both arms possibly due to swelling Assessment/Plan: 1. Perforated Viscus, S/P Sigmoid Colectomy with colostomy: Ostomy has stool, appears melanotic. Has some belly pain. Finished 10 day of IV Zosyn. PT/OT 2. Volume Overload: Continue Lasix. Check labs on Saturday, Weights M-W-F 3. BPH: Trouble voiding, resumed Cardura and Proscar. Watch BP 4. Melena: Work up with GI ongoing. Follow Hb/Hct. Protonix 5. A fib/ runs of NSVT: Metoprolol 6. Elevated CPK of unclear etiology, proximal arm weakness: CPK better today. 7. DVT Prophylaxis: TEDs. Unable to do chemical prophylaxis due to melena 8. Advance Directives: Full code 03/08/20 18:06
[2020-03-08] MEDS: Doxazosin TAB* 2 MG PO SCH (20:34)
[2020-03-08] MEDS: Finasteride TAB* 5 MG PO SCH (20:35)
[2020-03-09 06:11] LABS: ABS Lymphocytes 0.5 10^3/ul (1.0-4.8); ABS Monocytes 0.4 10^3/ul (0-0.8); ABS Neutrophils 5.6 10^3/ul (1.5-7.7); Eosinophil % 0.7 %; Hematocrit 22 % (42-52); Hemoglobin 7.1 g/dL (14.0-18.0); Lymphocyte % 7.2 %; Mean Corpuscular HGB Conc 33 g/dL (31-36); Mean Corpuscular Hemoglobin 27 pg (27-31); Mean Corpuscular Volume 84 fL (80-94); Mean Platelet Volume 8.9 fL (7.4-10.4); Nucleated Red Blood Cells % 0.1; Platelet Count 170 10^3/uL (150-450); Red Cell Distribution Width 18 % (10-15); White Blood Count 6.5 10^3/uL (3.5-10.8)
[2020-03-09 06:31] LABS: Albumin 1.7 g/dL (3.2-5.2); Albumin/Globulin Ratio 0.9 (1-3); BUN/Creatinine Ratio 17.2 (8-20); Calcium 6.5 mg/dL (8.6-10.3); EGFR African American 86.5 (>60); EGFR Non-African American 71.5 (>60); Globulin 1.8 g/dL (2-4); Potassium 3.5 mmol/L (3.5-5.0); Total Bilirubin 0.4 mg/dL (0.2-1.0); Total Protein 3.5 g/dL (6.4-8.9)
[2020-03-09] MEDS: Pantoprazole TAB * 40 MG TAB PO SCH (08:47)
[2020-03-09] MEDS: Docusate CAP* 100 MG PO SCH ×2 (08:47→20:38)
[2020-03-09] MEDS: Furosemide TAB* 20 MG PO SCH (08:47)
[2020-03-09] MEDS: Metoprolol Tartrate TAB* 25 MG PO SCH ×2 (08:47→20:38)
[2020-03-09] MEDS: Potassium Chlor TAB* 20 MEQ TAB.ER PO SCH (08:47)
[2020-03-09] MEDS: oxyCODONE/Acetamin 5/325 MG* TAB PO PRN ×2 (08:48→19:09)
[2020-03-09] MEDS: Dextran 70/Hypromellose Tears Eye Drops 15 ml BTL (for Artificials Tears) BOTH EYES SCH ×2 (08:52→20:38)
--- NOTE | 2020-03-09 18:12 | PN ---
Progress Note Date of Service: 03/09/20 Note: BÁRBARA DING was visited. Therapy notes read and reviewed. His Hb dropped to 7.1. Will transfuse 1 unit, may need an additional unit tomorrow. Will watch. Albumin 1.7. His calcium was measured to be 6.5 but corrects to ~ 8.3 with the low albumin. Will start oral calcium supplement, and follow. His hypoalbuminemia is only slightly better, but his arms are less edematous. Was able to work with PT. Still orthostatic, but systolic 78 today as opposed to 60 yesterday. Stool was heme +. CRP elevated. Current Medications: Active Medications Generic Name Dose Route Start Last Admin Trade Name Freq PRN Reason Stop Dose Admin Acetaminophen 650 mg 03/04/20 12:24 Tylenol Tab* PO Q6H PRN MILD PAIN or TEMP > 100.4 Artificial Tears 1 drop 03/08/20 21:00 03/09/20 08:52 Natural Balance Tears Eye Drop BOTH EYES 1 drop BID [facility]BY Administration Calcium Carbonate 1,250 mg 03/10/20 09:00 Calcium Carbonate Tab* PO DAILY COLBY Docusate Sodium 100 mg 03/04/20 21:00 03/09/20 08:47 Colace Cap* PO 100 mg BID [facility]BY Administration Doxazosin Mesylate 2 mg 03/08/20 21:00 03/08/20 20:34 Cardura Tab* PO 2 mg BEDTIME [facility] Administration Finasteride 5 mg 03/05/20 21:00 03/08/20 20:35 Proscar Tab* PO 5 mg 2100 [facility]BY Administration Heparin Sodium (Porcine) 1 ml 03/04/20 18:00 03/09/20 06:21 Heparin Flush Picc/Ml/Cvc(*) FLUSH 1 ml 0600,1800 [facility] Administration Protocol Metoprolol Tartrate 12.5 mg 03/08/20 21:00 03/09/20 08:47 Lopressor Tab* PO 12.5 mg BID [facility]BY Administration Oxycodone/Acetaminophen 1 tab 03/04/20 12:35 03/09/20 08:48 Percocet 5/325 Tab* PO 1 tab Q4H PRN Administration PAIN - MODERATE Pantoprazole Sodium 40 mg 03/05/20 09:00 03/09/20 08:47 Protonix Tab* PO 40 mg DAILY [facility]BY Administration Potassium Chloride 20 meq 03/08/20 09:00 03/09/20 08:47 Klor Con Er Tab* PO 20 meq DAILY [facility]BY Administration Senna 2 tab 03/04/20 12:36 Senokot 8.6 Mg Tab* PO BEDTIME PRN CONSTIPATION Vital Signs: Vital Signs Temp Pulse Resp BP Pulse Ox 100.1 F 64 22 125/43 99 03/09/20 16:04 03/09/20 16:04 03/09/20 16:04 03/09/20 16:04 03/09/20 16:04 Lab Results: Laboratory Results - last 24 hr 03/08/20 03/09/20 03/09/20 21:12 05:53 05:53 WBC 6.5 RBC 2.60 L Hgb 7.1 L Hct 22 L MCV 84 MCH 27 MCHC 33 RDW 18 H Plt Count 170 MPV 8.9 Neut % (Auto) 85.9 Lymph % (Auto) 7.2 Bledsoe % (Auto) 5.9 Eos % (Auto) 0.7 Baso % (Auto) 0.3 Absolute Neuts (auto) 5.6 Absolute Lymphs (auto) 0.5 L Absolute Monos (auto) 0.4 Absolute Eos (auto) 0.0 Absolute Basos (auto) 0.0 Absolute Nucleated RBC 0.0 Nucleated RBC % 0.1 Sodium 140 Potassium 3.5 Chloride 114 H Carbon Dioxide 21 L Anion Gap 5 BUN 17 Creatinine 0.99 Est GFR ( Amer) 86.5 Est GFR (Non-Af Amer) 71.5 BUN/Creatinine Ratio 17.2 Glucose 88 Calcium 6.5 L Total Bilirubin 0.40 AST 36 ALT 16 Alkaline Phosphatase 65 C-Reactive Protein 54.72 H Total Protein 3.5 L Albumin 1.7 L Globulin 1.8 L Albumin/Globulin Ratio 0.9 L Blood Type Antibody Screen Crossmatch 03/09/20 15:55 WBC RBC Hgb Hct MCV MCH MCHC RDW Plt Count MPV Neut % (Auto) Lymph % (Auto) Bledsoe % (Auto) Eos % (Auto) Baso % (Auto) Absolute Neuts (auto) Absolute Lymphs (auto) Absolute Monos (auto) Absolute Eos (auto) Absolute Basos (auto) Absolute Nucleated RBC Nucleated RBC % Sodium Potassium Chloride Carbon Dioxide Anion Gap BUN Creatinine Est GFR ( Amer) Est GFR (Non-Af Amer) BUN/Creatinine Ratio Glucose Calcium Total Bilirubin AST ALT Alkaline Phosphatase C-Reactive Protein Total Protein Albumin Globulin Albumin/Globulin Ratio Blood Type O Positive Antibody Screen Negative Crossmatch See Detail Exam: GENERAL: A&O. No distress LUNGS: Clear HEART: Regular rhythm ABDOMEN: Soft. Ostomy draining stool EXTREMITIES: 2+ edema in left arm, right arm also swollen. Legs have 1-2+ edema as well NEUROLOGIC: A&O. Sensation intact. Muscle strength 4/5 in both arms possibly due to swelling Assessment/Plan: 1. Perforated Viscus, S/P Sigmoid Colectomy with colostomy: Ostomy has stool, appears melanotic. Has some belly pain. Finished 10 day of IV Zosyn. PT/OT 2. Volume Overload: Will hold Lasix due to low BP. Weights M-W-F 3. BPH: Trouble voiding, resumed Cardura and Proscar. Watch BP 4. Melena: Work up with GI ongoing. Follow Hb/Hct. Protonix 5. A fib/ runs of NSVT: Metoprolol, now 12.5 BID 6. Elevated CPK of unclear etiology, proximal arm weakness: CPK better today. 7. DVT Prophylaxis: TEDs. Unable to do chemical prophylaxis due to melena 8. Advance Directives: Full code 9. Anemia: Transfuse 1 unit for Hb 7.1, may need 2nd unit 10. Hypocalcemia: Due to low albumin, corrects to ~8.3. Will add Calcium Carbonate 11. Hypoalbuminemia: Eating ok. Ensure/Supplements 03/09/20 18:13 03/09/20 18:15
[2020-03-09] MEDS: Doxazosin TAB* 2 MG PO SCH (20:38)
[2020-03-09] MEDS: Finasteride TAB* 5 MG PO SCH (20:38)
[2020-03-10 04:34] LABS: Hematocrit 25 % (42-52); Hemoglobin 8.1 g/dL (14.0-18.0)
[2020-03-10] MEDS: Pantoprazole TAB * 40 MG TAB PO SCH (08:09)
[2020-03-10] MEDS: Calcium Carbonate TAB* 1250 MG (CALCIUM 500 MG) PO SCH (08:09)
[2020-03-10] MEDS: Potassium Chlor TAB* 20 MEQ TAB.ER PO SCH (08:09)
[2020-03-10] MEDS: Metoprolol Tartrate TAB* 25 MG PO SCH ×2 (08:09→20:56)
[2020-03-10] MEDS: Docusate CAP* 100 MG PO SCH ×2 (08:09→20:55)
[2020-03-10] MEDS: Dextran 70/Hypromellose Tears Eye Drops 15 ml BTL (for Artificials Tears) BOTH EYES SCH ×2 (08:09→20:59)
[2020-03-10] MEDS: oxyCODONE/Acetamin 5/325 MG* TAB PO PRN ×2 (08:10→20:57)
--- NOTE | 2020-03-10 11:58 | PN ---
Progress Note - Progress Note Date of Service: 03/10/20 Note: Surgery Progress Note Patient is doing extremely well. He complains of some pain in his abdomen when he coughs or gets out of bed/chair. He has been working well with PT and OT and says that he is able to ambulate up and down stairs. His family was able to come in yesterday for ostomy teaching. He received 1 PRBC yesterday. Today his stool looks excellent, with no evidence of melena. The inner mucosa looks viable. He has no significant tenderness. We removed his petty today and placed steristrips. Patient should have a telemedicine visit with me approximately 2 weeks after discharge from [facility]. He should also follow up with GI as an outpatient.
--- NOTE | 2020-03-10 16:46 | PN ---
Progress Note Date of Service: 03/10/20 Note: BÁRBARA DING was visited. Therapy notes read and reviewed. He was transfused and did much better today. No complaints of dizziness or orthostasis. May transfuse a second unit tomorrow or Saturday. Appreciate surgery note. Eating ok Current Medications: Active Medications Generic Name Dose Route Start Last Admin Trade Name Freq PRN Reason Stop Dose Admin Acetaminophen 650 mg 03/04/20 12:24 Tylenol Tab* PO Q6H PRN MILD PAIN or TEMP > 100.4 Artificial Tears 1 drop 03/08/20 21:00 03/10/20 08:09 Natural Balance Tears Eye Drop BOTH EYES 1 drop BID COLBY Administration Calcium Carbonate 1,250 mg 03/10/20 09:00 03/10/20 08:09 Calcium Carbonate Tab* PO 1,250 mg DAILY COLBY Administration Docusate Sodium 100 mg 03/04/20 21:00 03/10/20 08:09 Colace Cap* PO 100 mg BID COLBY Administration Doxazosin Mesylate 2 mg 03/08/20 21:00 03/09/20 20:38 Cardura Tab* PO 2 mg BEDTIME COLBY Administration Finasteride 5 mg 03/05/20 21:00 03/09/20 20:38 Proscar Tab* PO 5 mg 2100 COLBY Administration Heparin Sodium (Porcine) 1 ml 03/04/20 18:00 03/10/20 06:05 Heparin Flush Picc/Ml/Cvc(*) FLUSH 1 ml 0600,1800 COLBY Administration Protocol Metoprolol Tartrate 12.5 mg 03/08/20 21:00 03/10/20 08:09 Lopressor Tab* PO 12.5 mg BID COLBY Administration Oxycodone/Acetaminophen 1 tab 03/04/20 12:35 03/10/20 08:10 Percocet 5/325 Tab* PO 1 tab Q4H PRN Administration PAIN - MODERATE Pantoprazole Sodium 40 mg 03/05/20 09:00 03/10/20 08:09 Protonix Tab* PO 40 mg DAILY COLBY Administration Potassium Chloride 20 meq 03/08/20 09:00 03/10/20 08:09 Klor Con Er Tab* PO 20 meq DAILY COLBY Administration Senna 2 tab 03/04/20 12:36 Senokot 8.6 Mg Tab* PO BEDTIME PRN CONSTIPATION Vital Signs: Vital Signs Temp Pulse Resp BP Pulse Ox 97.3 F 79 20 134/50 99 03/10/20 16:03 03/10/20 16:03 03/10/20 16:24 03/10/20 16:03 03/10/20 16:24 Lab Results: Laboratory Results - last 24 hr 03/09/20 03/10/20 15:55 03:59 Hgb 8.1 L Hct 25 L Blood Type O Positive Antibody Screen Negative Crossmatch See Detail Exam: GENERAL: A&O. No distress LUNGS: Clear HEART: Regular rhythm ABDOMEN: Soft. Ostomy draining stool EXTREMITIES: 2+ edema in left arm, right arm also swollen. Legs have 1-2+ edema as well NEUROLOGIC: A&O. Sensation intact. Muscle strength 4/5 in both arms possibly due to swelling Assessment/Plan: 1. Perforated Viscus, S/P Sigmoid Colectomy with colostomy: Ostomy has stool, appears melanotic. Has some belly pain. Finished 10 day of IV Zosyn. PT/OT 2. Volume Overload: Held Lasix due to low BP. Weights M-W-F 3. BPH: Trouble voiding, resumed Cardura and Proscar. Cardura 2 mg 1/2 his usual dose. Watch BP 4. Melena: Work up with GI ongoing. Follow Hb/Hct. Protonix. Looked less melanotic today 5. A fib/ runs of NSVT: Metoprolol, now 12.5 BID 6. Elevated CPK of unclear etiology, proximal arm weakness: CPK better. 7. DVT Prophylaxis: TEDs. Unable to do chemical prophylaxis due to melena 8. Advance Directives: Full code 9. Anemia: Transfused 1 unit for Hb 7.1, may need 2nd unit, Hb 8.1 today 10. Hypocalcemia: Due to low albumin, corrects to ~8.3. Added Calcium Carbonate 11. Hypoalbuminemia: Eating ok. Ensure/Supplements 03/10/20 16:46 03/10/20 16:48
[2020-03-10] MEDS: Doxazosin TAB* 2 MG PO SCH (20:55)
[2020-03-10] MEDS: Finasteride TAB* 5 MG PO SCH (20:55)
[2020-03-11] MEDS: oxyCODONE/Acetamin 5/325 MG* TAB PO PRN ×2 (08:41→21:12)
[2020-03-11] MEDS: Pantoprazole TAB * 40 MG TAB PO SCH (08:43)
[2020-03-11] MEDS: Docusate CAP* 100 MG PO SCH ×2 (08:44→21:09)
[2020-03-11] MEDS: Calcium Carbonate TAB* 1250 MG (CALCIUM 500 MG) PO SCH (08:44)
[2020-03-11] MEDS: Potassium Chlor TAB* 20 MEQ TAB.ER PO SCH (08:44)
[2020-03-11] MEDS: Metoprolol Tartrate TAB* 25 MG PO SCH ×2 (08:44→21:10)
[2020-03-11] MEDS: Dextran 70/Hypromellose Tears Eye Drops 15 ml BTL (for Artificials Tears) BOTH EYES SCH ×2 (08:48→21:10)
[2020-03-11 10:27] LABS: Hematocrit 24 % (42-52); Hemoglobin 7.9 g/dL (14.0-18.0)
--- NOTE | 2020-03-11 11:15 | PN ---
Progress Note Date of Service: 03/11/20 Note: BÁRBARA DING was visited. Nursing and therapy notes read and reviewed. He had a lot of coughing causing abdominal discomfort and chest discomfort last night. He has been known to be congested. No current chest pain or shortness of breath. Current Medications: Active Medications Generic Name Dose Route Start Last Admin Trade Name Freq PRN Reason Stop Dose Admin Acetaminophen 650 mg 03/04/20 12:24 Tylenol Tab* PO Q6H PRN MILD PAIN or TEMP > 100.4 Artificial Tears 1 drop 03/08/20 21:00 03/11/20 08:48 Natural Balance Tears Eye Drop BOTH EYES 1 drop BID COLBY Administration Calcium Carbonate 1,250 mg 03/10/20 09:00 03/11/20 08:44 Calcium Carbonate Tab* PO 1,250 mg DAILY COLBY Administration Docusate Sodium 100 mg 03/04/20 21:00 03/11/20 08:44 Colace Cap* PO 100 mg BID COBLY Administration Doxazosin Mesylate 2 mg 03/08/20 21:00 03/10/20 20:55 Cardura Tab* PO 2 mg BEDTIME COLBY Administration Finasteride 5 mg 03/05/20 21:00 03/10/20 20:55 Proscar Tab* PO 5 mg 2100 COLBY Administration Heparin Sodium (Porcine) 1 ml 03/04/20 18:00 03/11/20 05:30 Heparin Flush Picc/Ml/Cvc(*) FLUSH 1 ml 0600,1800 COLBY Administration Protocol Metoprolol Tartrate 12.5 mg 03/08/20 21:00 03/11/20 08:44 Lopressor Tab* PO 12.5 mg BID COLBY Administration Oxycodone/Acetaminophen 1 tab 03/04/20 12:35 03/11/20 08:41 Percocet 5/325 Tab* PO 1 tab Q4H PRN Administration PAIN - MODERATE Pantoprazole Sodium 40 mg 03/05/20 09:00 03/11/20 08:43 Protonix Tab* PO 40 mg DAILY COLBY Administration Potassium Chloride 20 meq 03/08/20 09:00 03/11/20 08:44 Klor Con Er Tab* PO 20 meq DAILY COLBY Administration Senna 2 tab 03/04/20 12:36 Senokot 8.6 Mg Tab* PO BEDTIME PRN CONSTIPATION Vital Signs: Vital Signs Temp Pulse Resp BP Pulse Ox 97.8 F 73 18 138/57 99 03/11/20 06:30 03/11/20 06:30 03/11/20 08:41 03/11/20 06:30 03/11/20 06:30 Lab Results: Laboratory Results - last 24 hr 03/11/20 10:08 Hgb 7.9 L Hct 24 L Exam: GENERAL: no acute distress. alert and appropriate LUNGS: Inspiratory rales at right base and decreased breath sounds in left lung field. HEART: Regular rate and rhythm ABDOMEN: + bowel sounds, soft, non-tender, non-distended. Ostomy draining liquid brown stool EXTREMITIES: 3+ pitting edema x4 NEUROLOGIC: Sensation intact x4. Motor 4/5 bilateral shoulder abduction and 5/5 otherwise BUE/BLE. Assessment/Plan: 1. Perforated Viscus, S/P Sigmoid Colectomy with colostomy: Ostomy stool now looks normal. Finished 10 day of IV Zosyn. PT/OT. f/u with Dr. Lozoya in 2 weeks. 2. Volume Overload: Held Lasix due to low BP. Weights M-W-F. Check CXR as may be congested now and/or with pleural effusion on left. 3. BPH: Trouble voiding, resumed Cardura and Proscar. Cardura 2 mg 1/2 his usual dose. Watch BP 4. h/o Melena: Work up with GI ongoing and will need f/u after d/c. Follow Hb/ Hct. Protonix. 5. A fib/ runs of NSVT: Metoprolol, now 12.5mg BID 6. Elevated CPK of unclear etiology, proximal arm weakness: CPK better. 7. DVT Prophylaxis: TEDs. Unable to do chemical prophylaxis due to recent melena 8. Advance Directives: Full code 9. Anemia: Transfused 1 unit for Hb 7.1 on 03/09. Hgb 8.1 post-transfusion 03/10 and now 7.9 today. Recheck tomorrow. may need 2nd unit. 10. Hypocalcemia: Due to low albumin, corrects to ~8.3. Added Calcium Carbonate 11. Hypoalbuminemia: Eating ok. Ensure/Supplements 12. Respiratory: check CXR today. 03/11/20 11:18
--- NOTE | 2020-03-11 15:59 | CONSULT ---
Subjective Date of Service: 03/11/20 Interval History: Mr. Beto Perez is a 89 y/o gentleman with complicated medical history, including ischemic cardiomyopathy, hypertension, rhabdomyolysis of unclear cause (was on steroid before this hospitalization for possible PMR), BPH, GERD, fatty liver,iron def anemia and thalassemia; he has been admitted to hospital since 02/25/20 . He was initially admitted for abdominal pain which turned out to be ruptured diverticulitis requiring sigmoid resection and colostomy.He developed atrial fibrillation post op and was not anticoagulated due to melena with possible ongoing blood loss. He was transferred to [facility] for further rehabilitation since 03/04/2020. Patient was tested for COVID-19 on 02/25 as he experienced stomach flu in early Jan with diarrhea, it was back negative. He complained of productive cough for 3 -4 days, he showed me the whittish to yellowish phelgm he brought up. He said it was worsening last night and it bothered him a lot. He denied fever or chills , though he did feel cold in that corner room. He denied shortness of breath, he denied muscle ache, he stated his exercise program went well and he went up and down stairs in the unit multiple times today. He is concerned about his swelling arms and legs. Patient was put on torsemide 10mg daily on discharge from [facility]. He was converted to lasix 20mg daily in [facility]. stopped on 03/09. One unit transfusion was given on 03/09. Past Medical/Family/Social History: PMH: complicated medical history, including ischemic cardiomyopathy, hypertension, rhabdomyolysis of unclear cause (was on steroid before this hospitalization for possible PMR), BPH, GERD, fatty liver,iron def anemia and thalassemia. PSH: non smoker, stays with . no travel history in the past 1 year. Consulting Service: Internal Medicine Reason for Consult: Complicated medical case, new cough with CXR changes Review of Systems - Review of Systems Constitutional: Negative: Fever, Chills, Sweats, Weakness, Malaise, Other Eyes: Negative: Pain, Vision Change, Conjunctivae Inflammation, Eyelid Inflammation, Redness, Other ENT: Negative: Ear Pain, Ear Discharge, Nose Pain, Nose Discharge, Nose Congestion, Mouth Pain, Mouth Swelling, Throat Pain, Throat Swelling, Other Respiratory: Positive: Cough, Sputum. Negative: Dry, Shortness of Breath, Hemoptysis, SOB with Excertion, Pleuritic Pain, Wheezing Cardiovascular: Negative: Chest Pain, Palpitations, Orthopnea, Paroxysmal Noc. Dyspnea, Edema, Light Headedness, Other Gastrointestinal: Negative: Nausea, Vomiting, Abdominal Pain, Diarrhea, Constipation, Melena, Hematochezia, Other Genitourinary: Negative: Dysuria, Frequency, Incontinence, Hematuria, Retention , Other Musculoskeletal: Negative: Neck Pain, Shoulder Pain, Arm Pain, Back Pain, Hand Pain, Leg Pain, Foot Pain, Other Skin: Negative: Rash, Lesions, Mateo, Bruising, Other Neurological/Mental Status: Negative: Weakness, Numbness, Incoordination, Change in Speech, Confusion, Seizures, Other Objective Active Medications: Acetaminophen (Tylenol Tab*) 650 mg PO Q6H PRN PRN Reason: MILD PAIN or TEMP > 100.4 Artificial Tears (Natural Balance Tears Eye Drop) 1 drop BOTH EYES BID [facility] Last Admin: 03/11/20 08:48 Dose: 1 drop Calcium Carbonate (Calcium Carbonate Tab*) 1,250 mg PO DAILY [facility] Last Admin: 03/11/20 08:44 Dose: 1,250 mg Docusate Sodium (Colace Cap*) 100 mg PO BID [facility] Last Admin: 03/11/20 08:44 Dose: 100 mg Doxazosin Mesylate (Cardura Tab*) 2 mg PO BEDTIME [facility] Last Admin: 03/10/20 20:55 Dose: 2 mg Finasteride (Proscar Tab*) 5 mg PO 2100 [facility] Last Admin: 03/10/20 20:55 Dose: 5 mg Heparin Sodium (Porcine) (Heparin Flush Picc/Ml/Cvc(*)) 1 ml FLUSH 0600,1800 [facility]; Protocol Last Admin: 03/11/20 05:30 Dose: 1 ml Metoprolol Tartrate (Lopressor Tab*) 12.5 mg PO BID [facility] Last Admin: 03/11/20 08:44 Dose: 12.5 mg Oxycodone/Acetaminophen (Percocet 5/325 Tab*) 1 tab PO Q4H PRN PRN Reason: PAIN - MODERATE Last Admin: 03/11/20 08:41 Dose: 1 tab Pantoprazole Sodium (Protonix Tab*) 40 mg PO DAILY [facility] Last Admin: 03/11/20 08:43 Dose: 40 mg Potassium Chloride (Klor Con Er Tab*) 20 meq PO DAILY [facility] Last Admin: 03/11/20 08:44 Dose: 20 meq Senna (Senokot 8.6 Mg Tab*) 2 tab PO BEDTIME PRN PRN Reason: CONSTIPATION Vital Signs - 8 hr 03/11/20 03/11/20 03/11/20 08:41 09:00 13:27 Respiratory 18 16 16 Rate Oxygen Devices in Use Now: None Exam: GEN: comfortable lying on the bed, frequent cough noted with whitish phelgm, NAD CHEST: normal S1,S2, no murmur Lung: right lung diffuse rales up to mid lung Abdomen: stoma present, soft, non tender Extremity: pitting edema up to bilateral knee, left arm pitting edema up to shoulder, right arm mild edema Neurology: alert, oriented x4. Result Diagrams: 03/11/20 10:08 03/09/20 05:53 Assess/Plan/Problems-Billing Mr. Beto Perez is a 89 y/o gentleman with complicated medical history, including ischemic cardiomyopathy, admitted on 02/25/20 for perforated diverticulitis requiring operation, now in [facility] for rehab. We were consulted for new onset of productive cough with CXR changes. Patient is significantly volume overloaded currently which is likely related to cessation of his diuretics. Although there is no pulmonary edema as reported in CXR, his symptom onset, physical examination findings are consistent with volume overload. I would increase his diuretic lasix to 40mg daily for now. At the meantime, monitor his weight, I/O, electrolytes closely. I will repeat BMP tomorrow. His productive cough with CXR may also present infectious causes, likely hospital acquired pneumonia, viral pneumonia. Data inconsistent with this is that patient has no fever, no SOB or O2 requirement, data favors with pneumonia is one new productive cough, two CXR showing alveolar and interstitial opacities. I don't have WBC data recently at this moment. I think it's reasonable to repeat his full CBC, BMP today. If it shows significant leukocytosis, I will start iv zosyn empirically as this would be hospital acquired pneumonia, do urine pneumonia test, and swallowing eval. If no leukocytosis seen, I isabel continue to watch. I don't think we need to test him for COVID 19 since there is only cough, unilateral infiltrate, no hypoxia despite infiltrate, less likely at this moment. Recommendation: - added on full CBC today to see any leukocytosis - lasix 40mg daily for now, repeat BMP tomorrow - strict i/o, daily weight Status and Disposition: PMRU Attestation Documenting Resident: Ciara Selby Supervising Physician: Martir Case Attending/Supervising Physician Comment: Agree with note as outlined here by Dr. Selby. Increasing cough in setting of blood administration and withholding of lasix 2/ 2 hypotension while working with PT. He is total body overloaded but CXR concerning for bronchopneumonia. He does not have fever and there is no CBC to review. Will dose lasix 40mg IV this evening and reassess in AM along with repeat labs. If elevated WBC, fever or unchanged clinical status may need treatment for hospital acquired PNA (cefepime/vanco). Attestation: This service has been performed in part by a resident under the direction of a teaching physician.I, Martir Case, performed the service, or was physically present during the critical, or cervantes portions of the service, furnished by the resident. I participated in the management of the patient.
--- NOTE | 2020-03-11 16:22 | CONSULT ---
Consult Consult: Mr. Perez has a history of a a perforated viscus related to diverticulitis in the setting of elevated inflammatory markers and elevated CK, which is improving. Would continue to follow trend in his CK level. No evidence for polymyositis. Avoid corticosteroid therapy for now. Continue supportive care; will follow; thanks!
[2020-03-11 16:31] LABS: ABS Lymphocytes 0.6 10^3/ul (1.0-4.8); ABS Monocytes 0.4 10^3/ul (0-0.8); ABS Neutrophils 2.8 10^3/ul (1.5-7.7); Eosinophil % 0.9 %; Lymphocyte % 16.3 %; Mean Corpuscular HGB Conc 32 g/dL (31-36); Mean Corpuscular Hemoglobin 27 pg (27-31); Mean Corpuscular Volume 85 fL (80-94); Mean Platelet Volume 9.2 fL (7.4-10.4); Nucleated Red Blood Cells % 0.1; Platelet Count 141 10^3/uL (150-450); Red Blood Count 2.88 10^6 /uL (4.18-5.48); Red Cell Distribution Width 18 % (10-15); White Blood Count 3.9 10^3/uL (3.5-10.8)
--- NOTE | 2020-03-11 17:24 | CONS ---
CONSULTATION REPORT: DATE OF CONSULT: 03/11/20 CONSULTING PHYSICIAN: Dr. Sybil Abraham. REASON FOR CONSULT: Evaluate for myositis. CHIEF COMPLAINT: History of muscle weakness with elevated CPK. HISTORY OF PRESENT ILLNESS: Mr. Perez is an 89-year-old male, known to me from a prior admission. He has a history of muscle weakness, intermittent stiffness, as well as decline in overall function in the setting of elevated inflammatory markers and an elevated muscle enzyme. 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 He had been placed on prednisone 20 mg daily, but subsequently was readmitted for diverti culitis complicated by a perforation. He required surgery and now is on the rehab service. I have faraz felipe asked to evaluate for the possibility of myositis or recurrence of his polymyalgia rheumatica whi le he is undergoing rehab. Of note, his CPK remains elevated, although not extremely high, and there have been nutritional issues as well as possible volume overload issues for which Internal Medicine is also consulting. He has no specific complaints except for some stiffness in his shoulders as well as his proximal muscles and intermittent weakness, but he is participating in rehab and improving hi s nutritional status since he has been here. In terms of his most recent history, as noted above, he had been admitted for perforated diverticulum with CT scan confirming this with free air. He has al ready had an exploratory laparotomy on 02/25/20 and had a sigmoid resection and end colostomy. He penn d been intubated and had complications of atrial fibrillation with rapid ventricular response and was seen by Cardiology. Given his myositis, he has avoided certain cardiac medications including amioda barbie, but he was given beta blockade to improve his rate. He also had an echo at that time revealing ejection fraction of 40% to 45%. He did finish his 10-day course of Zosyn; however, he continued to have some melena. GI has been consulted and workup has revealed an elevated C-reactive protein. He has also had nutritional issues and an albumin level is currently pending. He has been undergoing ph ysical and occupational therapy and continues inpatient rehab with a goal of returning to independent living. Otherwise, he has no specific complaints, although he did have a chest x-ray which I review ed today with Dr. Selby, which suggested some mild fluid overload. This is being addressed by Internal Medicine. PAST MEDICAL HISTORY: Includes: 1. Prostatic hypertrophy. 2. History of elevated CPK of unclear etiology. His antibody workup was negative for Jennifer-1 and lupus . 3. He also has hypertension with gastroesophageal reflux disease and history of gout. MEDICATIONS: Prior meds coming into the inpatient stay were: 1. Lopressor. 2. Percocet. 3. Protonix as needed. ALLERGIES: Include PROCAINE. FAMILY HISTORY: Negative for immediate family history of rheumatic conditions. There is family histo ry of arthritis. SOCIAL HISTORY: He does not smoke. He does not drink alcohol. He is hard of hearing. He has a sup portive and daughter. Lives in a 2-story house and has been ambulatory prior to his illness. REVIEW OF SYSTEMS: General: Denies acute symptoms. Denies fever, chills, or weight changes. He penn s had mild edema in the lower extremities. Pulmonary: Denies acute shortness of breath. Cardiac: D enies chest wall pain. Abdomen: As noted above with diverticulitis. No specific complaints and his appetite is improving. Extremities: He has had some mild edema. Musculoskeletal: Denies specific joint pain. Neurologic: He has had subjective intermittent muscle weakness, but he is participatin g in rehab. Other 14-point review of systems were reviewed and were otherwise negative. PHYSICAL EXAM: He had a pulse of 73, temperature of 97.8, respiratory rate of 18, blood pressure of 138/57, pulse ox of 99%. In general, he is pleasant, in no acute distress, alert and appropriate. L ungs revealed slight inspiratory rales at the right base, but otherwise clear, with slightly diminish ed breath sounds in the left lower lung field, but no crackles. Heart revealed a regular rate and rh ythm. Normal S1 and S2. Abdomen: Positive bowel sounds. Soft, nontender, nondistended. Ostomy drai mikaela brown liquid stool. Extremities: 2+ pitting edema in the lower extremities bilaterally. Neuro logic: Sensation was intact x4. Motor strength was 4/5 in the bilateral shoulders, triceps, and bic eps region, but he was able to abduct his shoulders. He has 4+/5 strength in the quads and 5/5 in th e dorsiflexors and plantar flexors of his ankles and feet. Musculoskeletal: No synovitis. DIAGNOSTIC STUDIES/LAB DATA: He had a hemoglobin of 7.9, hematocrit of 24. His white count was 6.5 on 03/09/20. Blood sugar was not very high and his serum creatinine was 0.99. His C-reactive protei n was elevated at 54.72 and his CPK was 241. Albumin level was 1.7, globulin 1.8. He had a chest x-ray showing mild patchy mid to lower lung zone alveolar and interstitial opacities c oncerning for potential bronchopneumonia, also small dependent left and trace right pleural effusions , but no compelling evidence for pulmonary edema. ASSESSMENT AND PLAN: Mr. Perez has history of diverticulitis with perforation in the setting of an elevated CPK of unclear etiology, now improving, with also elevated inflammatory markers, but a rece nt chest x-ray concerning for possible evolving bronchopneumonia. At this point in time, he has many reasons for inflammation and his C-reactive protein could be elevated due to his underlying infectio n and recent inflammatory events including the perforated viscus. The CPK could on reflection repres ent some inflammatory muscle condition and could even represent a longstanding muscle condition such as inclusion body myositis, especially as it is not very high; however, his serologic autoimmune work up has been negative in the past and the muscle strength is gradually improving with PT. He is curren tly receiving supportive care and currently undergoing an Internal Medicine consultation. I would ag ree with avoiding any kind of steroid, immunosuppressive, or immunomodulating agent at this point in time. I will continue to follow and would be happy to follow up with him as an outpatient. In the m eantime, we would continue rehab and supportive care. [id number]/[facility] #: [id number]
[2020-03-11] MEDS: Furosemide TAB* 40 MG PO SCH (17:57)
[2020-03-11] MEDS: Finasteride TAB* 5 MG PO SCH (21:09)
[2020-03-11] MEDS: Doxazosin TAB* 2 MG PO SCH (21:09)
[2020-03-12 05:46] LABS: ABS Lymphocytes 0.5 10^3/ul (1.0-4.8); ABS Monocytes 0.4 10^3/ul (0-0.8); ABS Neutrophils 3.1 10^3/ul (1.5-7.7); Hematocrit 25 % (42-52); Hemoglobin 8.2 g/dL (14.0-18.0); Lymphocyte % 11.7 %; Mean Corpuscular HGB Conc 33 g/dL (31-36); Mean Corpuscular Hemoglobin 27 pg (27-31); Mean Corpuscular Volume 82 fL (80-94); Mean Platelet Volume 8.9 fL (7.4-10.4); Platelet Count 152 10^3/uL (150-450); Red Blood Count 2.99 10^6 /uL (4.18-5.48); Red Cell Distribution Width 17 % (10-15)
[2020-03-12 06:01] LABS: Albumin 1.9 g/dL (3.2-5.2); Albumin/Globulin Ratio 0.9 (1-3); BUN/Creatinine Ratio 14.4 (8-20); EGFR African American 88.6 (>60); EGFR Non-African American 73.2 (>60); Globulin 2.1 g/dL (2-4); Potassium 3.4 mmol/L (3.5-5.0); Total Bilirubin 0.6 mg/dL (0.2-1.0)
[2020-03-12] MEDS ORDERED: Potassium Chlor TAB* 20 MEQ TAB.ER PO ONE (09:32)
[2020-03-12] MEDS: Pantoprazole TAB * 40 MG TAB PO SCH (09:34)
[2020-03-12] MEDS: Docusate CAP* 100 MG PO SCH ×2 (09:34→21:22)
[2020-03-12] MEDS: Potassium Chlor TAB* 20 MEQ TAB.ER PO SCH (09:34)
[2020-03-12] MEDS: Calcium Carbonate TAB* 1250 MG (CALCIUM 500 MG) PO SCH (09:34)
[2020-03-12] MEDS: Dextran 70/Hypromellose Tears Eye Drops 15 ml BTL (for Artificials Tears) BOTH EYES SCH ×2 (09:35→21:23)
[2020-03-12] MEDS: Furosemide TAB* 40 MG PO SCH (09:35)
[2020-03-12] MEDS: Metoprolol Tartrate TAB* 25 MG PO SCH ×2 (09:35→21:15)
[2020-03-12] MEDS: oxyCODONE/Acetamin 5/325 MG* TAB PO PRN ×3 (09:35→21:20)
[2020-03-12] MEDS: guaiFENesin 100 mg/5 ml LIQ unit dose cup PO PRN ×3 (09:46→21:23)
--- NOTE | 2020-03-12 10:56 | PN ---
Progress Note Date of Service: 03/12/20 Note: BÁRBARA DING was visited. Nursing and therapy notes read and reviewed. Appreciate hospitalist and rheumatology consults. Abdominal binder helped decrease pain with coughing. Cough is better this morning. Swelling is down in his hands right now as he has been keeping them elevated. When really edematous yesterday he had some weeping from his left hand, which has since resolved. No chest pain or shortness of breath. Current Medications: Active Medications Generic Name Dose Route Start Last Admin Trade Name Freq PRN Reason Stop Dose Admin Acetaminophen 650 mg 03/04/20 12:24 Tylenol Tab* PO Q6H PRN MILD PAIN or TEMP > 100.4 Artificial Tears 1 drop 03/08/20 21:00 03/12/20 09:35 Natural Balance Tears Eye Drop BOTH EYES 1 drop BID COLBY Administration Calcium Carbonate 1,250 mg 03/10/20 09:00 03/12/20 09:34 Calcium Carbonate Tab* PO 1,250 mg DAILY COLBY Administration Docusate Sodium 100 mg 03/04/20 21:00 03/12/20 09:34 Colace Cap* PO 100 mg BID COLBY Administration Doxazosin Mesylate 2 mg 03/08/20 21:00 03/11/20 21:09 Cardura Tab* PO 2 mg BEDTIME COLBY Administration Finasteride 5 mg 03/05/20 21:00 03/11/20 21:09 Proscar Tab* PO 5 mg 2100 COLBY Administration Furosemide 40 mg 03/11/20 17:00 03/12/20 09:35 Lasix Tab* PO 40 mg DAILY COLBY Administration Guaifenesin 10 ml 03/11/20 21:53 03/12/20 09:46 Robitussin 100 Mg/5ml Liq PO 10 ml Q4H PRN Administration COUGH Heparin Sodium (Porcine) 1 ml 03/04/20 18:00 03/12/20 05:51 Heparin Flush Picc/Ml/Cvc(*) FLUSH 1 ml 0600,1800 COLBY Administration Protocol Metoprolol Tartrate 12.5 mg 03/08/20 21:00 03/12/20 09:35 Lopressor Tab* PO 12.5 mg BID COLBY Administration Oxycodone/Acetaminophen 1 tab 03/04/20 12:35 03/12/20 09:35 Percocet 5/325 Tab* PO 1 tab Q4H PRN Administration PAIN - MODERATE Pantoprazole Sodium 40 mg 03/05/20 09:00 03/12/20 09:34 Protonix Tab* PO 40 mg DAILY COLBY Administration Potassium Chloride 20 meq 03/08/20 09:00 03/12/20 09:34 Klor Con Er Tab* PO 20 meq DAILY COLBY Administration Senna 2 tab 03/04/20 12:36 Senokot 8.6 Mg Tab* PO BEDTIME PRN CONSTIPATION Vital Signs: Vital Signs Temp Pulse Resp BP Pulse Ox 98 F 80 16 160/47 100 03/12/20 04:37 03/12/20 04:37 03/12/20 09:35 03/12/20 04:37 03/12/20 04:37 Lab Results: Laboratory Results - last 24 hr 03/11/20 03/12/20 03/12/20 10:08 05:15 05:15 WBC 3.9 4.0 RBC 2.88 L 2.99 L Hgb 7.9 L 8.2 L Hct 24 L 25 L MCV 85 82 MCH 27 27 MCHC 32 33 RDW 18 H 17 H Plt Count 141 L 152 MPV 9.2 8.9 Neut % (Auto) 73.0 77.7 Lymph % (Auto) 16.3 11.7 Tyrrell % (Auto) 9.1 9.1 Eos % (Auto) 0.9 1.0 Baso % (Auto) 0.7 0.5 Absolute Neuts (auto) 2.8 3.1 Absolute Lymphs (auto) 0.6 L 0.5 L Absolute Monos (auto) 0.4 0.4 Absolute Eos (auto) 0.0 0.0 Absolute Basos (auto) 0.0 0.0 Absolute Nucleated RBC 0.0 0.0 Nucleated RBC % 0.1 0.0 Sodium 143 Potassium 3.4 L Chloride 113 H Carbon Dioxide 25 Anion Gap 5 BUN 14 Creatinine 0.97 Est GFR ( Amer) 88.6 Est GFR (Non-Af Amer) 73.2 BUN/Creatinine Ratio 14.4 Glucose 85 Calcium 7.0 L Total Bilirubin 0.60 AST 31 ALT 16 Alkaline Phosphatase 71 Total Protein 4.0 L Albumin 1.9 L Globulin 2.1 Albumin/Globulin Ratio 0.9 L Prealbumin 10 L Exam: GENERAL: no acute distress. alert and appropriate LUNGS: Few scattered inspiratory rales bilaterally, but good air movement bilaterally. HEART: Regular rate and rhythm ABDOMEN: + bowel sounds, soft, non-tender, non-distended. Ostomy draining soft brown stool EXTREMITIES: 3+ pitting edema BLE. No pitting edema in hands, but still present in dependent parts of upper arms. NEUROLOGIC: Sensation intact x4. Motor 4/5 bilateral shoulder abduction and 5/5 otherwise BUE/BLE. Assessment/Plan: 1. Perforated Viscus, S/P Sigmoid Colectomy with colostomy: Ostomy stool now looks normal. Finished 10 day of IV Zosyn. PT/OT. f/u with Dr. Lozoya in 2 weeks. 2. Volume Overload: Lasix previously held due to low BP, but restarted 03/11 for presumed pulmonary edema contributing to his coughing per hospitalist. CXR 03/11 showed patchy opacities. Daily Weights. 3. BPH: Trouble voiding, resumed Cardura and Proscar. Cardura 2 mg 1/2 his usual dose. Watch BP 4. h/o Melena: Work up with GI ongoing and will need f/u after d/c. Hb/Hct stable recently. Protonix. 5. A fib/ runs of NSVT: Metoprolol, now 12.5mg BID 6. Elevated CPK of unclear etiology, proximal arm weakness: CPK better. Per Dr. Bowen, follow serial CK's. f/u as outpatient. 7. DVT Prophylaxis: TEDs. Unable to do chemical prophylaxis due to recent melena 8. Advance Directives: Full code 9. Anemia: Transfused 1 unit for Hb 7.1 on 03/09. Hgb 8.1 post-transfusion 03/10 and now seems stable. Follow. 10. Hypocalcemia: Due to low albumin, corrects to ~8.3. Added Calcium Carbonate 11. Hypoalbuminemia: Slowly showing improvement. Poor appetite. Ensure/ Supplements 12. Hypokalemia: likely due to extra lasix. Give additional 20MEq KCl today. f/ u labs Saturday. 03/12/20 10:56
--- NOTE | 2020-03-12 18:28 | PN ---
Subjective Date of Service: 03/12/20 Interval History: Pt reports tough night coughing. He was given cough suppressant which helped overnight He felt the abdominal binder decreased his pain when coughing This afternoon he feels his cough and peripheral swelling are improved. Objective Active Medications: Acetaminophen (Tylenol Tab*) 650 mg PO Q6H PRN PRN Reason: MILD PAIN or TEMP > 100.4 Artificial Tears (Natural Balance Tears Eye Drop) 1 drop BOTH EYES BID ON LICENSE OF [facility] Last Admin: 03/12/20 09:35 Dose: 1 drop Calcium Carbonate (Calcium Carbonate Tab*) 1,250 mg PO DAILY ON LICENSE OF [facility] Last Admin: 03/12/20 09:34 Dose: 1,250 mg Docusate Sodium (Colace Cap*) 100 mg PO BID ON LICENSE OF [facility] Last Admin: 03/12/20 09:34 Dose: 100 mg Doxazosin Mesylate (Cardura Tab*) 2 mg PO BEDTIME ON LICENSE OF [facility] Last Admin: 03/11/20 21:09 Dose: 2 mg Finasteride (Proscar Tab*) 5 mg PO 2100 ON LICENSE OF [facility] Last Admin: 03/11/20 21:09 Dose: 5 mg Furosemide (Lasix Tab*) 40 mg PO DAILY ON LICENSE OF [facility] Last Admin: 03/12/20 09:35 Dose: 40 mg Guaifenesin (Robitussin 100 Mg/5ml Liq) 10 ml PO Q4H PRN PRN Reason: COUGH Last Admin: 03/12/20 18:04 Dose: 10 ml Heparin Sodium (Porcine) (Heparin Flush Picc/Ml/Cvc(*)) 1 ml FLUSH 0600,1800 ON LICENSE OF [facility]; Protocol Last Admin: 03/12/20 17:58 Dose: 1 ml Metoprolol Tartrate (Lopressor Tab*) 12.5 mg PO BID ON LICENSE OF [facility] Last Admin: 03/12/20 09:35 Dose: 12.5 mg Oxycodone/Acetaminophen (Percocet 5/325 Tab*) 1 tab PO Q4H PRN PRN Reason: PAIN - MODERATE Last Admin: 03/12/20 14:44 Dose: 1 tab Pantoprazole Sodium (Protonix Tab*) 40 mg PO DAILY ON LICENSE OF [facility] Last Admin: 03/12/20 09:34 Dose: 40 mg Potassium Chloride (Klor Con Er Tab*) 20 meq PO DAILY ON LICENSE OF [facility] Last Admin: 03/12/20 09:34 Dose: 20 meq Senna (Senokot 8.6 Mg Tab*) 2 tab PO BEDTIME PRN PRN Reason: CONSTIPATION Vital Signs - 8 hr 03/12/20 03/12/20 03/12/20 11:35 14:44 15:18 Temperature 97.4 F Pulse Rate 55 Respiratory 16 16 16 Rate Blood Pressure 128/54 (mmHg) O2 Sat by Pulse 100 Oximetry 03/12/20 16:44 Temperature Pulse Rate Respiratory 16 Rate Blood Pressure (mmHg) O2 Sat by Pulse Oximetry Oxygen Devices in Use Now: None Appearance: NAD, lying 35 deg in bed Eyes: No Scleral Icterus, PERRLA Ears/Nose/Mouth/Throat: NL Teeth, Lips, Gums, Clear Oropharnyx Neck: NL Appearance and Movements; NL JVP, Trachea Midline Respiratory: Symmetrical Chest Expansion and Respiratory Effort, - - faint rales left base up 1/3 to apex Cardiovascular: RRR Abdominal: NL Sounds; No Tenderness; No Distention, No Hepatosplenomegaly Extremities: - - 2+ edema b/l upper and lower extremtities Neurological: Alert and Oriented x 3 Result Diagrams: 03/12/20 05:15 03/12/20 05:15 Microbiology and Other Data: Microbiology 03/08/20 18:45 Stool Occult Blood (DANNY) - Final Stool 03/05/20 19:44 Urine Culture - Final Urine No Growth (<1,000 CFU/mL) Assess/Plan/Problems-Billing 89 yo M h/o ICM recent hospital stay for rhabdomyolyis of unknown etiology (? viral) followed by perforated diverticulitis now undergoing acute rehab on PMRU who developed increasing cough - Patient Problems (1) Cough Comment: Suspect element of volume overload in setting of discontinuatio of diuretics and administration of blood. He seems to be improving with resumption of diuretics and an abdominal binder to assist in his clearing of secretions. CXR concerning for the development of a PNA however no fevers or leukocytosis yet and he was improved with diuretics. If he has a change in clinical condition including worsening cough, SOB, new oxygen demand, development of fever or elevated WBC I would reconsider the diagnosis of PNA and potential initiate abx for hospital acquired PNA (2) Cardiomyopathy Comment: Lasix and beta ranjan Status and Disposition: We will sign off for now Please call with additional questions or concerns
[2020-03-12] MEDS: Doxazosin TAB* 2 MG PO SCH (21:22)
[2020-03-12] MEDS: Finasteride TAB* 5 MG PO SCH (21:22)
[2020-03-13] MEDS: Metoprolol Tartrate TAB* 25 MG PO SCH ×2 (10:16→20:10)
[2020-03-13] MEDS: Potassium Chlor TAB* 20 MEQ TAB.ER PO SCH (10:17)
[2020-03-13] MEDS: oxyCODONE/Acetamin 5/325 MG* TAB PO PRN ×2 (10:17→17:20)
[2020-03-13] MEDS: Furosemide TAB* 40 MG PO SCH (10:17)
[2020-03-13] MEDS: Calcium Carbonate TAB* 1250 MG (CALCIUM 500 MG) PO SCH (10:18)
[2020-03-13] MEDS: Pantoprazole TAB * 40 MG TAB PO SCH (10:18)
[2020-03-13] MEDS: Docusate CAP* 100 MG PO SCH ×2 (10:18→20:11)
[2020-03-13] MEDS: Dextran 70/Hypromellose Tears Eye Drops 15 ml BTL (for Artificials Tears) BOTH EYES SCH ×2 (10:20→20:10)
[2020-03-13] MEDS: Benzonatate CAP* 100 MG PO SCH ×2 (11:32→20:10)
--- NOTE | 2020-03-13 11:55 | PN ---
Progress Note Date of Service: 03/13/20 Note: BÁRBARA DING was visited. Nursing notes read and reviewed. Has intermittent coughing fits. Cyrussin is short-lived. No new chest pain, shortness of breath or abdominal pain. 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 Current Medications: Active Medications Generic Name Dose Route Start Last Admin Trade Name Freq PRN Reason Stop Dose Admin Acetaminophen 650 mg 03/04/20 12:24 03/12/20 21:21 Tylenol Tab* PO 650 mg Q6H PRN Administration MILD PAIN or TEMP > 100.4 Artificial Tears 1 drop 03/08/20 21:00 03/13/20 10:20 Natural Balance Tears Eye Drop BOTH EYES 1 drop BID COLBY Administration Benzonatate 100 mg 03/13/20 11:00 03/13/20 11:32 Tessalon Cap* PO 100 mg BID COLBY Administration Calcium Carbonate 1,250 mg 03/10/20 09:00 03/13/20 10:18 Calcium Carbonate Tab* PO 1,250 mg DAILY COLBY Administration Docusate Sodium 100 mg 03/04/20 21:00 03/13/20 10:18 Colace Cap* PO 100 mg BID COLBY Administration Doxazosin Mesylate 2 mg 03/08/20 21:00 03/12/20 21:22 Cardura Tab* PO 2 mg BEDTIME COLBY Administration Finasteride 5 mg 03/05/20 21:00 03/12/20 21:22 Proscar Tab* PO 5 mg 2100 COLBY Administration Furosemide 40 mg 03/11/20 17:00 03/13/20 10:17 Lasix Tab* PO 40 mg DAILY COLBY Administration Heparin Sodium (Porcine) 1 ml 03/04/20 18:00 03/13/20 04:48 Heparin Flush Picc/Ml/Cvc(*) FLUSH 1 ml 0600,1800 COLBY Administration Protocol Metoprolol Tartrate 12.5 mg 03/08/20 21:00 03/13/20 10:16 Lopressor Tab* PO 12.5 mg BID COLBY Administration Oxycodone/Acetaminophen 1 tab 03/04/20 12:35 03/13/20 10:17 Percocet 5/325 Tab* PO 1 tab Q4H PRN Administration PAIN - MODERATE Pantoprazole Sodium 40 mg 03/05/20 09:00 03/13/20 10:18 Protonix Tab* PO 40 mg DAILY COLBY Administration Potassium Chloride 20 meq 03/08/20 09:00 03/13/20 10:17 Klor Con Er Tab* PO 20 meq DAILY COLBY Administration Senna 2 tab 03/04/20 12:36 03/12/20 21:21 Senokot 8.6 Mg Tab* PO 2 tab BEDTIME PRN Administration CONSTIPATION Vital Signs: Vital Signs Temp Pulse Resp BP Pulse Ox 98.5 F 71 18 137/51 100 03/13/20 06:28 03/13/20 06:28 03/13/20 10:17 03/13/20 06:28 03/13/20 08:00 Exam: GENERAL: no acute distress. alert and appropriate LUNGS: Few scattered inspiratory rales bilaterally, but good air movement bilaterally. HEART: Regular rate and rhythm ABDOMEN: + bowel sounds, soft, non-tender, non-distended. Ostomy draining soft brown stool EXTREMITIES: 3+ pitting edema BLE. No pitting edema in hands, but still present in dependent parts of upper arms. NEUROLOGIC: Sensation intact x4. Motor 5/5 BUE/BLE but fatigues. Assessment/Plan: 1. Perforated Viscus, S/P Sigmoid Colectomy with colostomy: Ostomy stool now looks normal. Finished 10 day of IV Zosyn. PT/OT. f/u with Dr. Lozoya in 2 weeks. 2. Volume Overload: Lasix previously held due to low BP, but restarted 03/11 for presumed pulmonary edema contributing to his coughing per hospitalist. CXR 03/11 showed patchy opacities. Daily Weights. Weight down about 10# since admission. 3. BPH: Cardura and Proscar. Cardura 2 mg 1/2 his usual dose. Watch BP 4. h/o Melena: Work up with GI ongoing and will need f/u after d/c. Hb/Hct stable recently. Protonix. 5. A fib/ runs of NSVT: Metoprolol, now 12.5mg BID 6. Elevated CPK of unclear etiology, proximal arm weakness: CPK better. Per Dr. Bowen, follow serial CK's. f/u as outpatient. 7. DVT Prophylaxis: TEDs. Unable to do chemical prophylaxis due to recent melena 8. Advance Directives: Full code 9. Anemia: Transfused 1 unit for Hb 7.1 on 03/09. Hgb 8.1 post-transfusion 03/10 and now seems stable. Follow. 10. Hypocalcemia: Due to low albumin, corrects to ~8.3. Added Calcium Carbonate 11. Hypoalbuminemia: Slowly showing improvement. Poor appetite. Ensure/ Supplements 12. Hypokalemia: likely due to extra lasix. Received additional 20MEq KCl 03/12. f/u labs Saturday. 13. Chronic cough: as above possibly related to some fluid overload and back on daily lasix. Not febrile or showing other signs for pneumonia. Robitussin not very helpful. Will try tessalon but if due to fluid this may also not help and he will just need time as long as otherwise medically stable. 03/13/20 11:56
[2020-03-13] MEDS: Finasteride TAB* 5 MG PO SCH (20:11)
[2020-03-13] MEDS: Doxazosin TAB* 2 MG PO SCH (20:11)
[2020-03-14] MEDS: oxyCODONE/Acetamin 5/325 MG* TAB PO PRN ×2 (04:59→09:05)
[2020-03-14 06:25] LABS: ABS Lymphocytes 0.4 10^3/ul (1.0-4.8); ABS Monocytes 0.3 10^3/ul (0-0.8); ABS Neutrophils 2.7 10^3/ul (1.5-7.7); Eosinophil % 1.3 %; Hematocrit 26 % (42-52); Hemoglobin 8.5 g/dL (14.0-18.0); Lymphocyte % 12.3 %; Mean Corpuscular HGB Conc 33 g/dL (31-36); Mean Corpuscular Hemoglobin 27 pg (27-31); Mean Corpuscular Volume 82 fL (80-94); Nucleated Red Blood Cells % 0.1; Platelet Count 145 10^3/uL (150-450); Red Blood Count 3.17 10^6 /uL (4.18-5.48); Red Cell Distribution Width 17 % (10-15); White Blood Count 3.5 10^3/uL (3.5-10.8)
[2020-03-14 06:41] LABS: BUN/Creatinine Ratio 13.5 (8-20); EGFR African American 89.7 (>60); EGFR Non-African American 74.1 (>60); Globulin 2.1 g/dL (2-4); Potassium 3.4 mmol/L (3.5-5.0); Total Bilirubin 0.5 mg/dL (0.2-1.0); Total Protein 4.1 g/dL (6.4-8.9)
[2020-03-14] MEDS: Docusate CAP* 100 MG PO SCH ×2 (08:46→20:44)
[2020-03-14] MEDS: Calcium Carbonate TAB* 1250 MG (CALCIUM 500 MG) PO SCH (08:46)
[2020-03-14] MEDS: Furosemide TAB* 40 MG PO SCH (08:46)
[2020-03-14] MEDS: Benzonatate CAP* 100 MG PO SCH ×2 (08:46→20:43)
[2020-03-14] MEDS: Metoprolol Tartrate TAB* 25 MG PO SCH ×2 (08:46→20:49)
[2020-03-14] MEDS: Potassium Chlor TAB* 20 MEQ TAB.ER PO SCH ×2 (08:47→20:42)
[2020-03-14] MEDS: Dextran 70/Hypromellose Tears Eye Drops 15 ml BTL (for Artificials Tears) BOTH EYES SCH ×2 (08:47→20:41)
[2020-03-14] MEDS: Pantoprazole TAB * 40 MG TAB PO SCH (08:47)
[2020-03-14 09:02] LABS: C Reactive Protein 44.31 mg/L (<8.01)
--- NOTE | 2020-03-14 18:06 | PN ---
Progress Note Date of Service: 03/14/20 Note: BÁRBARA DING was visited. Therapy notes read and reviewed. His Hb is now 8.5 and Albumin is 2. He is ready for discharge. Has diuresed without dropping his blood pressure. Current Medications: Active Medications Generic Name Dose Route Start Last Admin Trade Name Freq PRN Reason Stop Dose Admin Acetaminophen 650 mg 03/04/20 12:24 03/12/20 21:21 Tylenol Tab* PO 650 mg Q6H PRN Administration MILD PAIN or TEMP > 100.4 Artificial Tears 1 drop 03/08/20 21:00 03/14/20 08:47 Natural Balance Tears Eye Drop BOTH EYES 1 drop BID COLBY Administration Benzonatate 100 mg 03/13/20 11:00 03/14/20 08:46 Tessalon Cap* PO 100 mg BID COLBY Administration Calcium Carbonate 1,250 mg 03/10/20 09:00 03/14/20 08:46 Calcium Carbonate Tab* PO 1,250 mg DAILY COLBY Administration Docusate Sodium 100 mg 03/04/20 21:00 03/14/20 08:46 Colace Cap* PO 100 mg BID COLBY Administration Doxazosin Mesylate 2 mg 03/08/20 21:00 03/13/20 20:11 Cardura Tab* PO 2 mg BEDTIME COLBY Administration Finasteride 5 mg 03/05/20 21:00 03/13/20 20:11 Proscar Tab* PO 5 mg 2100 COLBY Administration Furosemide 40 mg 03/11/20 17:00 03/14/20 08:46 Lasix Tab* PO 40 mg DAILY COLBY Administration Heparin Sodium (Porcine) 1 ml 03/04/20 18:00 03/14/20 04:59 Heparin Flush Picc/Ml/Cvc(*) FLUSH 1 ml 0600,1800 COLBY Administration Protocol Metoprolol Tartrate 12.5 mg 03/08/20 21:00 03/14/20 08:46 Lopressor Tab* PO 12.5 mg BID COLBY Administration Oxycodone/Acetaminophen 1 tab 03/04/20 12:35 03/14/20 09:05 Percocet 5/325 Tab* PO 1 tab Q4H PRN Administration PAIN - MODERATE Pantoprazole Sodium 40 mg 03/05/20 09:00 03/14/20 08:47 Protonix Tab* PO 40 mg DAILY COLBY Administration Potassium Chloride 20 meq 03/14/20 21:00 Klor Con Er Tab* PO BID COLBY Senna 2 tab 03/04/20 12:36 03/12/20 21:21 Senokot 8.6 Mg Tab* PO 2 tab BEDTIME PRN Administration CONSTIPATION Vital Signs: Vital Signs Temp Pulse Resp BP Pulse Ox 97.3 F 74 16 129/43 100 03/14/20 15:28 03/14/20 15:28 03/14/20 15:28 03/14/20 15:28 03/14/20 15:28 Lab Results: Laboratory Results - last 24 hr 03/14/20 03/14/20 05:28 05:28 WBC 3.5 RBC 3.17 L Hgb 8.5 L Hct 26 L MCV 82 MCH 27 MCHC 33 RDW 17 H Plt Count 145 L MPV 9.0 Neut % (Auto) 77.0 Lymph % (Auto) 12.3 [place] % (Auto) 8.9 Eos % (Auto) 1.3 Baso % (Auto) 0.5 Absolute Neuts (auto) 2.7 Absolute Lymphs (auto) 0.4 L Absolute Monos (auto) 0.3 Absolute Eos (auto) 0.0 Absolute Basos (auto) 0.0 Absolute Nucleated RBC 0.0 Nucleated RBC % 0.1 Sodium 142 Potassium 3.4 L Chloride 110 Carbon Dioxide 25 Anion Gap 7 BUN 13 Creatinine 0.96 Est GFR ( Amer) 89.7 Est GFR (Non-Af Amer) 74.1 BUN/Creatinine Ratio 13.5 Glucose 84 Calcium 7.0 L Total Bilirubin 0.50 AST 26 ALT 14 Alkaline Phosphatase 70 Total Creatine Kinase 103 C-Reactive Protein 44.31 H Total Protein 4.1 L Albumin 2.0 L Globulin 2.1 Albumin/Globulin Ratio 1.0 Exam: GENERAL: no acute distress. alert and appropriate LUNGS: Few scattered inspiratory rales bilaterally, but good air movement bilaterally. HEART: Regular rate and rhythm ABDOMEN: + bowel sounds, soft, non-tender, non-distended. Ostomy draining soft brown stool EXTREMITIES: pitting edema BLE. NEUROLOGIC: Sensation intact x4. Motor 5/5 BUE/BLE but fatigues. Assessment/Plan: 1. Perforated Viscus, S/P Sigmoid Colectomy with colostomy: Ostomy stool now looks normal. PT/OT. f/u with Dr. Lozoya in 2 weeks. 2. Volume Overload: Lasix previously held due to low BP, but restarted for presumed volume overload per hospitalist. CXR 03/11/2020 showed patchy opacities. Daily Weights. Weight down about 10# since admission. 3. BPH: Cardura and Proscar. Cardura 2 mg 1/2 his usual dose. Watch BP 4. h/o Melena: Work up with GI ongoing and will need f/u after d/c. Stools no longer melanotic. Hb/Hct stable recently. Protonix. 5. A fib/ runs of NSVT: Metoprolol, now 12.5mg BID 6. Elevated CPK of unclear etiology, proximal arm weakness: CPK better. Per Dr. Bowen, follow serial CK's. f/u as outpatient. 7. DVT Prophylaxis: TEDs. Unable to do chemical prophylaxis due to recent melena 8. Advance Directives: Full code 9. Anemia: Transfused 1 unit for Hb 7.1 on 03/09. Hgb 8.5. Follow. 10. Hypocalcemia: Due to low albumin, corrects to ~8.6. Added Calcium Carbonate 11. Hypoalbuminemia: Slowly showing improvement. Poor appetite. Ensure/ Supplements 12. Hypokalemia: likely due to extra lasix. Received additional 20MEq KCl 03/12. K 3.4 today. 03/14/20 18:06
[2020-03-14] MEDS: Finasteride TAB* 5 MG PO SCH (20:44)
[2020-03-14] MEDS: Doxazosin TAB* 2 MG PO SCH (20:44)
[2020-03-15] MEDS: oxyCODONE/Acetamin 5/325 MG* TAB PO PRN ×2 (00:38→08:18)
[2020-03-15 05:23] VITALS: BP 144/52
[2020-03-15] MEDS: Furosemide TAB* 40 MG PO SCH (08:01)
[2020-03-15] MEDS: Docusate CAP* 100 MG PO SCH (08:01)
[2020-03-15] MEDS: Benzonatate CAP* 100 MG PO SCH (08:01)
[2020-03-15] MEDS: Calcium Carbonate TAB* 1250 MG (CALCIUM 500 MG) PO SCH (08:01)
[2020-03-15] MEDS: Metoprolol Tartrate TAB* 25 MG PO SCH (08:01)
[2020-03-15] MEDS: Dextran 70/Hypromellose Tears Eye Drops 15 ml BTL (for Artificials Tears) BOTH EYES SCH (08:02)
[2020-03-15] MEDS: Pantoprazole TAB * 40 MG TAB PO SCH (08:02)
[2020-03-15] MEDS: Potassium Chlor TAB* 20 MEQ TAB.ER PO SCH (08:02)
--- NOTE | 2020-03-15 11:39 | CONS ---
GASTROENTEROLOGY CONSULT FOLLOWUP: DATE OF CONSULT: HISTORY OF PRESENT ILLNESS: This 89-year-old man, now in his 12th day on the rehabilitation unit, has had problems while here of slow onset of feeding, edema , anemia, heme-positive stool, and also a cough which is predominantly nocturnal. Please see separate consult from 11 days ago. In recent days, his oral intake has increased and he has been able to function a little better with physical therapy. He, however, has had a cough especially at night and was evaluated by Dr. Case of Internal Medicine. Chest x-ray questioned infiltrates though he has not had a fever, elevated white count or any antibiotics initiated at this time. He has diuresed. With his increased oral intake, his albumin has gone up from a low-point of 1.5 on 03/07/20 to now 2.0 yesterday. He describes eating essentially all of his [place] toast this morning and manicotti last night. His ostomy output is mid to light brown, pasty, and without any dark component. Hemoccult was negative yesterday. Three Hemoccults had been positive in sequence beginning 02/25/20. He continues to have some edema though his CPK yesterday was 103 down from 241. CURRENT MEDICATIONS: Include calcium carbonate; docusate; Cardura 2 mg h.s.; finasteride 5 mg; furosemide 40; metoprolol 12.5; pantoprazole 40; potassium chloride 20 mg b.i.d. EXAM: He is alert with good color, oriented and with his accented Salvadorean expresses himself fairly clearly. He is complaining of abdominal pain especially when coughing or trying to sit up. He had no pain or trouble with eating. Sitting him on the side of the bed, his lungs are fairly clear, although effort is marginal. No obvious rhonchi are heard. He has an emesis basin filled with saliva and respiratory secretions with strands of purulence, but no blood. Lying down his bowel sounds are positive. He is tender to superficial palpation in the upper midline and right upper quadrant not localized and seemingly abdominal wall tenderness. Stoma appears normal with light brown pasty stool. Arms and legs both show edema in the distal areas, legs greater than arms with no erythema. LABS: Most recently are hemoglobin 8.5, hematocrit 26, platelets 145, white count 3.5. Sodium 142, BUN 13, creatinine 0.96 CPK 103. BUN is showing a definite downward trend from 59 to 70 range during the first 4 hospital days and then a gradual decline. It was noted that his bowel was hyperemic on CT scan, but without focal abnormality while being run during surgical exploration. IMPRESSION: This 89-year-old man is clearly showing signs of an effective nutritional rehabilitation recovering from a multifaceted illness that has included in January cardiac dysfunction of unknown cause (cath negative) with effusions and then edema, and then in January a possibly unrelated illness with a grossly elevated CPK. In January there was anemia with heme-negative stool and an unremarkable upper endoscopy. He had a presentation with rhabdomyolysis. He was placed on prednisone in late January. He then had a ruptured viscus from diverticulosis and no obvious other issue precipitating the acute abdomen. He survived a period of intubation, ICU care. His CPK is now normalized and his stool is heme-negative and he is clearly taking in better nutrition with his albumin rising and heme-negative stool. He may require more ongoing respiratory rehabilitation and close observation for signs of a rheumatologic disorder recurring. [id number]/[facility] #: [id number] [facility]
--- NOTE | 2020-03-15 18:20 | DS ---
CC: Dr. Serenity Martin* DISCHARGE SUMMARY: DATE OF ADMISSION: 03/04/20 DATE OF DISCHARGE: 03/15/20 DISCHARGE DIAGNOSES: 1. Sigmoid colectomy. 2. Colostomy. 3. Volume overload. 4. Orthostatic hypotension. 5. Hypoalbuminemia. 6. Atrial fibrillation. 7. Elevated CPK of unknown etiology. 8. Hypocalcemia. 9. Hypokalemia. 10. Ischemic cardiomyopathy. 11. Melena of unknown etiology. HISTORY OF PRESENT ILLNESS AND HOSPITAL COURSE: For a complete summary of the events leading up to his rehab stay, please see the history and physical dictated by me on 03/04/20. While on the rehab unit, the patient was put on Lasix for his edema in all 4 extremities. He was noted to be markedly hypoalbuminemic with an albumin of 1.5. The patient continued to have melanotic stool coming out of his ostomy. His hemoglobin was noted to be drifting down. While working with Physical Therapy, he had an episode of hypotension with a systolic blood pressure of 60. His medications were cut back. His Cardura was cut back to 2 mg and his beta- ranjan was cut back to 12.5 mg twice a day. His Lasix was held. Hemoglobin and hematocrit were checked and he had a hemoglobin of 7.1. He was transfused 1 unit. He went into mild volume overload following transfusion of that 1 unit. An internal medicine consultation was ordered after a chest x-ray showed a patchy infiltrate possibly consistent with a bronchopneumonia. Internal Medicine felt it was most likely mild congestive heart failure and restarted his Lasix. The patient did not show any signs of pneumonia such as an elevated white blood cell count or fever and no antibiotics were given. The patient was noted to be hypocalcemic and was started on oral supplements. However, with his hypoalbuminemia, his calcium was not as low as it appeared. He was also hypokalemic from his diuresis and was given potassium supplementation. The patient worked with both Physical and Occupational Therapy and made good gains with both disciplines. The patient's albumin increased from 1.5 on admission to 2 at the time of discharge as his oral intake improved. As mentioned, he worked with Physical Therapy and Occupational Therapy and made good gains with both disciplines. With physical therapy at the time of admission, the patient required mod assist for bed mobility, mod assist to do a transfer, and mod assist to ambulate 75 feet. With occupational therapy at the time of admission , he was mod assist for upper body dressing, dependent for lower body dressing, dependent for toileting, and mod assist for toilet transfers. By the time of discharge, the patient was independent with toileting, did need some help changing the colostomy bag. He was mod assist for lower body dressing, set up for upper body dressing, and dependent for donning and doffing footwear. With occupational therapy, he was independent in transfers, independent ambulating 150 feet with a rolling walker, and needed supervision to go up and down 12 steps. The patient's was brought in for training and he was discharged home on 03/15/20. DISCHARGE DIET: Regular. DISCHARGE MEDICATIONS: 1. Cardura 4 mg at bedtime. 2. Proscar 5 mg at bedtime. 3. Lasix 40 mg daily. 4. Lopressor 12.5 mg twice daily. 5. Percocet 5/325 one tablet every 4 hours as needed. 6. Protonix 40 mg daily. 7. Potassium chloride 20 mEq twice daily. SERVICES AFTER DISCHARGE: Through visiting nurse service, he will have home nursing and home physical therapy. Follow up with Dr. Bernie Lozoya in 1 to 2 weeks for a check on his colostomy. He will also follow up with Dr. Serenity Martin for his primary care. He can follow up with Dr. Julien Sheikh from Gastroenterology as needed. DISPOSITION: Home. CONDITION AT DISCHARGE: Stable. TIME SPENT: Time for this discharge was approximately 50 minutes, greater than half of that was spent with the patient and his explaining post- rehabilitation medications, therapies, and services. [id number]/[facility] #: [id number] [facility]
== END 2020-03-15 15:41 | disposition home health service (06) | DRG 949 ==
LOC: PMRU 10:21
PROVIDERS: ADMIT Physical Medicine & Rehabilitation; ATTEND Physical Medicine & Rehabilitation
PROC: F07Z5ZZ Bed Mobility Treatment (ICD-10-PCS; 2020-03-04)
PROC: F07Z9ZZ Gait Training/Functional Ambulation Treatment (ICD-10-PCS; 2020-03-04)
PROC: F07Z8ZZ Transfer Training Treatment (ICD-10-PCS; 2020-03-04)
PROC: F07Z4ZZ Wheelchair Mobility Treatment (ICD-10-PCS; 2020-03-04)
PROC: F08Z0ZZ Bathing/Showering Techniques Treatment (ICD-10-PCS; 2020-03-04)
PROC: F08Z1ZZ Dressing Techniques Treatment (ICD-10-PCS; 2020-03-04)
PROC: F08Z3ZZ Feeding/Eating Treatment (ICD-10-PCS; 2020-03-04)
PROC: F08Z2ZZ Grooming/Personal Hygiene Treatment (ICD-10-PCS; 2020-03-04)
PROC: 30233N1 Transfusion of Nonautologous Red Blood Cells into Peripheral Vein, Percutaneous Approach (ICD-10-PCS; principal; 2020-03-09)
DX: Z48.815 Encounter for surgical aftercare following surgery on the digestive system (principal); I47.2 Ventricular tachycardia; K92.1 Melena; I11.0 Hypertensive heart disease with heart failure; I50.9 Heart failure, unspecified; N40.0 Benign prostatic hyperplasia without lower urinary tract symptoms; K21.9 Gastro-esophageal reflux disease without esophagitis; M10.9 Gout, unspecified; I25.5 Ischemic cardiomyopathy; R82.998 Other abnormal findings in urine; K76.0 Fatty (change of) liver, not elsewhere classified; R05 Cough; I48.91 Unspecified atrial fibrillation; D50.9 Iron deficiency anemia, unspecified; E87.70 Fluid overload, unspecified; I95.1 Orthostatic hypotension; M79.89 Other specified soft tissue disorders; E88.09 Other disorders of plasma-protein metabolism, not elsewhere classified; E83.51 Hypocalcemia; E87.6 Hypokalemia; Z93.3 Colostomy status; Z88.8 Allergy status to other drugs, medicaments and biological substances; Z79.899 Other long term (current) drug therapy; Z82.61 Family history of arthritis
CPT/HCPCS: 36415; 71046; 80053; 81003; 81015; 82272; 82550; 84134; 85014; 85018; 85025; 86140; 86850; 86900; 86901; 86922; 87086; A9270-GY; P9040